=== PATIENT | female | born 1950 | race Caucasian/White ===

== ENCOUNTER 2024-11-14 15:04 | Outpatient (AMB) | payer MEDICARE, SELFPAY ==
[2024-11-14 15:06] VITALS: BP 108/76; PULSE 76; O2SAT 98; BMI 28.2
--- NOTE | 2024-11-14 15:06 | HO.NEPHOV_ITS ---
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: No Accompanied by: Self / Same As Patient Allergies No Known Allergies Allergy (Verified 11/14/24 15:09) Medication List - Last Reconciled 11/14/24 by Ronni Garcia MD albuterol sulfate 90 mcg/actuation 2 puffs inhalation Q6H PRN apixaban (Eliquis) 5 mg PO BID atorvastatin 20 mg PO DAILY dexlansoprazole 60 mg PO DAILY empagliflozin (Jardiance) 10 mg PO DAILY gabapentin 800 mg PO DAILY meclizine 12.5 mg PO DAILY PRN metoprolol succinate ER 100 mg PO DAILY paroxetine HCl 20 mg PO DAILY potassium chloride ER 20 mEq PO DAILY umeclidinium-vilanterol 62.5-25 mcg/actuation (Anoro Ellipta) 1 ea inhalation DAILY HPI Comments Details: Kimberly is a pleasant 74-year-old woman with multiple medical problems including longstanding hypertension diastolic heart failure and COPD. She has been on torsemide 20 mg a day along with potassium supplementation. She was found to have mild CKD with a elevated serum creatinine and mild alkalosis with a might hypokalemia. Two weeks ago she stopped taking torsemide and she has been watching her weight. She is still taking the potassium tab At present she has no shortness of breath. No nausea or vomiting. No edema. No urinary symptoms. [facility] Medical History (Updated 11/14/24 @ 15:19 by Ronni Garcia MD) Weakness Vitamin D deficiency Vertigo Transaminitis Systolic heart failure Sinusitis Pulmonary hypertension Prediabetes Peripheral neuropathy Osteopenia Obstructive sleep apnea syndrome NAFLD (nonalcoholic fatty liver disease) Lung nodule History of IBS Interstitial lung disease Insomnia Hypoxia Hypokalemia Hyperlipemia Colonic polyp HTN (hypertension) GI bleed Atrial fibrillation Iron deficiency anemia Cardiac pacemaker Gastroesophageal reflux disease LA (generalized anxiety disorder) Fatty liver Dyspnea on effort Dyspnea Depressive disorder Crohn's disease of large bowel Cobalamin deficiency CKD (chronic kidney disease), stage II Chronic systolic heart failure Chronic obstructive lung disease Chronic kidney disease, stage 3 Chronic diastolic heart failure Carotid artery stenosis Benign colon polyp Benign essential hypertension Surgical History History of total abdominal hysterectomy Hx of appendectomy History of neck surgery History of laminectomy Hx of cholecystectomy (~03/2019) Physical Exam Vital Signs: Last Vital Signs Pulse 76 11/14/24 15:06 BP 108/76 11/14/24 15:06 Pulse Ox 98 11/14/24 15:06 Oxygen Delivery Method Room Air 11/14/24 15:06 BMI result Body Mass Index 28.2 Comfortable Neck supple no JVD. Lungs entry equal no rales. Heart S1-S2 heard no gallop or rub. Abdomen soft nontender. Neuro alert awake oriented. No asterixis. Extremities no edema. Results Reviewed Nephrology Results: No Data to Display Assessment & Plan Assessment & Plan (1) CKD (chronic kidney disease): Code(s): N18.9 - Chronic kidney disease, unspecified Category: Medical Plan 74-year-old woman with mild CKD in a setting of congestive heart failure. She probably has a component of hypoperfusion from the use of diuretics. She could have age-related nephron loss leading to mild CKD. Recent imaging did not reveal any obstruction. Recent urine studies were benign and therefore glomerular nephritis or interstitial disease seem unlikely. She has mild alkalosis with hypokalemia both could be due to the use of diuretics. She has stopped taking the diuretics for the past 2 weeks. I will recheck serum electrolytes today. If she has persistent hypokalemia or alkalosis despite stopping the torsemide then we will proceed with further workup including plasma renin activity and aldosterone levels. Since she is not taking the torsemide I have asked her to stop taking potassium supplementation. After the workup is completed she returned to office in the next few weeks. Orders: Orders Complete Blood Count no Diff Today N18.9 - Chronic kidney disease, unspecified Sodium Urine Random 2 Weeks N18.9 - Chronic kidney disease, unspecified Chloride Urine Random Today N18.9 - Chronic kidney disease, unspecified Basic Metabolic Panel Today N18.9 - Chronic kidney disease, unspecified UA and rflx microscopic Today N18.9 - Chronic kidney disease, unspecified Coding Level of Care Code New Pt Level 5 (29429) Diagnoses CKD (chronic kidney disease) N18.9
--- OUTSIDE RECORDS SUMMARY | 2024-11-14 15:07 | XMS_ITS | Continuity of Care Document ---
Author Organization [facility] Address [address] [facility] [address] [place] [address] Phone Care Team Providers Care Leasing Sales Consultant Name Role Phone Awais Alford MD Unavailable Unavailable Advance Directives Directive Yes / No Effective Date File Name No Information Encounters Encounter Description Practice Location Reason(s) For Visit Diagnoses Date Provider Providers Copied on Encounter [facility], [address] [place] [address] [address], [place], [place], [id number], [phone] [facility] Office No Information 3 Rocío Ernandez. [address] [facility], [facility] [address], [place], [place], [id number] . tel: [phone] Family History Family Member Type Diagnosis Age [...]
--- OUTSIDE RECORDS SUMMARY | 2024-11-14 15:07 | XMS_ITS | Continuity of Care Document ---
Author Organization [facility] Address [address] [place] [phone] Phone Care Team Providers Care Cna Pct Name Role Phone Cece OD OD, Gamal Unavailable Unavailable Allergies, Adverse Reactions, Alerts Substance Reaction Status Criticality No Known Allergies Active No Inform ation Advance Directives Directive Yes / No Effective Date File Name No Information Encounters Encounter Description Practice Location Reason(s) For Visit Diagnoses Date Provider Providers Copied on Encounter [facility] , [address] [place] [address], [id number], [place] tel:[phone] [facility] Noé Stephens Other secondary cataract, left eyeAge-related nuclear cataract, left eyeUnspecified blepharitis right upper eyelidConjunctival hemorrhage, left eyeAge-related nuclear cataract, right eyeAge-related nuclear cataract, bilateralOther secondary cataract, bilateralVitreous degeneration, bilateralOther secondary cataract, right eyeDry eye syndrome of bilateral lacrimal glandsPersonal history of other diseases of the nervous system and sense organsUnspecified blepharitis left upper eyelid Apr-0 1 [facility] Gamal. [address] [place], [place], [id number] , [place]. tel: [phone] [facility] , [address] [place] [address], [id number], [place] tel:[phone] No Location No Information Apr-2 0 [facility] OD Gamal. [address] [place], [place], [id number] , [place]. [phone] [facility] , [address] [place] [address], [id number], [place] tel:[phone] [facility] Noé Stephens Dry eye syndrome of bilateral lacrimal glandsVitreous degeneration, bilateral Feb-2 0 Cece MATHEW Gamal. [address] [place], [place], [id number] , [place]. tel:[phone] Family History Family Member Type Diagnosis Age At Onset No Information Payers Payer name Insurance type Covered libertarian ID Authoriza tion(s) No Information Social History Type Description Quantity Date Captured Comments Sex Female Smoking Status No Information Chief Complaint And Reason For Visit No Information Reason For Referral Reason For Referral No Information History Of Present Illness Encounter Date Complaint History Of Prese nt Illness No Information Functional Status Date Functional Assessmen t No Information Instructions Date Instruction Additional Aguilarr alayna Impression/Plan Assessments Type Assessment Date No Information Patient Care Teams Name Effective Dates (start - stop) Status Members No Information
== END 2024-11-14 15:23 | disposition home or self-care (01) ==
PROVIDERS: PCP Family Medicine; Referring Provider Family Medicine; Visit Provider Internal Medicine Hypertension Specialist
DX: N18.2 Chronic kidney disease, stage 2 (mild) (principal); I50.9 Heart failure, unspecified
CPT/HCPCS: 99204

== ENCOUNTER 2024-11-14 15:04 | Outpatient (REF) | payer MEDICARE, SELFPAY ==
--- OUTSIDE RECORDS SUMMARY | 2024-11-14 15:38 | XMS_ITS ---
Author Name [facility] Organization Unknown Results Test Name/Text Value Interpretation Date Range Source Troponin I SerPl HS-mCnc 5ng/L Normal 0 - 14 [facility] CALCIUM SERPL [facility] 9.5mg/dL Normal 8.4 - 10.2 [facility] CREAT SERPL [facility] 0.8mg/dL Normal [id number] 0.5 - 1 [facility] SODIUM SERPL SC[facility] 138mmol/L Normal 135 - 145 [facility] GLUCOSE SERPL [facility] 115mg/dL Normal 70 - 199 [facility] Glomerular filtration rate/1.73 sq M. predicted 77 Normal 60 - [facility] CHLORIDE SERPL SCNC 101mmol/L Normal 98 - 107 [facility] HCO3 SER SCNC 26mmol/L Normal 24 - 32 [facility] POTASSIUM SERPL SCNC 3.5mmol/L Normal 3.5 - 5.1 [facility] ANION GAP SERPL SC[facility] 11mmol/L Normal 5 - 14 [facility] BUN SERPL [facility] 16mg/dL Normal [id number] 7 - 17 [facility] MAGNESIUM SERPL [facility] 2.5mg/dL Normal 1.7 - 2.8 [facility] RBC NO. BLD AUTO 5.46M/uL Above high normal 4. 2 - 5.4 [facility] MCH RBC QN AUTO 26.7pg Normal 25 - 33 C [facility] MCHC RBC AUTO MCNC 32.9g/dL Normal 32 - 36 [facility] HGB BLD [facility] 14.6g/dL Normal 12.5 - 16 [facility] WBC NO. BLD AUTO 9.6K/uL Normal 4 - 10.5 [facility] HCT VFR BLD AUTO 44.4% Normal 37 - 47 [facility] MCV RBC AUTO 81.2fL Normal 78 - 100 [facility] RDW RBC AUTO RTO 17.3% Above high normal 12.1 - 16.2 [facility] PLATELET NO. BLD AUTO 271K/uL Normal 150 - 450 [facility] PMV BLD AUTO 9.1fL Normal 7.4 - 11.4 [facility] Troponin I SerPl HS-mCnc 37ng/L Above high normal 0 - 14 [facility] HCoV NL63 RNA Nph Ql CHRIST+non-probe Not Detected Normal [id number] [facility] HPIV1 RNA Nph Ql CHRIST+non-probe Not Detected Normal [id number] [facility] HPIV3 RNA Nph Ql CHRIST+non-probe Detected Abnormal [id number] [facility] B pert.PT Prmt Nph Ql CHRIST+non-probe Not Detected Normal [id number] [facility] SARS-CoV-2 RNA Nph Ql CHRIST+non-probe Not Detected Normal [id number] [facility] C pneum DNA Nph Ql CHRIST+non-probe Not Detected Normal [id number] [facility] HPIV4 RNA Nph Ql CHRIST+non-probe Not Detected Normal [id number] [facility] B parap QQ2501 DNA Nph Ql CHRIST+non-probe Not Detected Normal [id number] [facility] HAdV DNA Nph Ql CHRIST+non-probe Not Detected Normal [id number] [facility] RSV RNA Nph Ql CHRIST+non-probe Not Detected Normal [id number] [facility] FLUBV RNA Nph Ql CHRIST+non-probe Not Detected Normal [id number] [facility] FLUAV RNA Nph Ql CHRIST+non-probe Not Detected Normal [id number] [facility] HCoV 229E RNA Nph Ql CHRIST+non-probe Not Detected Normal [id number] [facility] RV+EV RNA Nph Ql CHRIST+non-probe Not Detected Normal [id number] [facility] hMPV RNA Nph Ql CHRIST+non-probe Not Detected Normal [id number] [facility] HPIV2 RNA Nph Ql CHRIST+non-probe Not Detected Normal [id number] [facility] HCoV HKU1 RNA Nph Ql CHRIST+non-probe Not Detected Normal [facility] HCoV OC43 RNA Nph Ql CHRIST+non-probe Not Detected Normal [facility] Troponin I SerPl HS-mCnc 6ng/L Normal 0 - 14 [facility] Prot Ur Ql Strip.auto NEGATIVE Normal - [facility] Nitrite Ur Ql Strip.auto NEGATIVE Normal - [facility] Hgb Ur Ql Strip.auto NEGATIVE Normal - [facility] Leukocyte esterase Ur Ql Strip.auto NEGATIVE Normal - [facility] Clarity Ur Refract.auto CLEAR Normal [facility] Ketones Ur Ql Strip.auto NEGATIVE Normal - [facility] Glucose Ur Ql Strip.auto 150mg/dL Abnormal - [facility] pH Ur Strip.auto 5 Normal 4.5 - 8 [facility] Sp Gr Ur Strip.auto 1.005 Normal 1.005 - 1.03 [facility] Service [facility] XXX-Imp BioFire FilmArray Torch (RT-PCR) Normal [facility] SPECIMEN SOURCE XXX NASOPHARYNGEAL Normal [facility] Troponin I SerPl HS-mCnc 9ng/L Normal 0 - 14 [facility] BNP BLD MCNC 166pg/mL Above high normal [id number] 0 - 10 0 [facility] MAGNESIUM SERPL [facility]NC 1.7mg/dL Normal [id number] 1.7 - 2.8 [facility] PT TIME PPP 17.5sec Above high normal 10.5 - 13.3 [facility] INR PPP 1.5 Above high normal 0.8 - 1.1 [facility] APTT TIME PPP 30sec Normal 25 - 37 [facility] LIPASE SERPL [facility] 24U/L Normal 11 - 82 [facility] CREAT SERPL MC[facility] 0.8mg/dL Normal 0.5 - 1 [facility] SODIUM SERPL SCNC 138mmol/L Normal 135 - 145 [facility] GLUCOSE SERPL MCNC 85mg/dL Normal [id number] 70 - 199 [facility] Glomerular filtration rate/1.73 sq M. predicted 77 Normal [id number] 60 - [facility] CHLORIDE SERPL SCNC 102mmol/L Normal [id number] 98 - 107 [facility] HCO3 SER SCNC 24mmol/L Normal [id number] 24 - 32 [facility] POTASSIUM SERPL SCNC 3.3mmol/L Below low normal [id number] 3.5 - 5.1 [facility] ANION GAP SERPL SCNC 12mmol/L Normal [id number] 5 - 14 [facility] BUN SERPL [facility] 9mg/dL Normal [id number] 7 - 17 [facility] CALCIUM SERPL [facility] 8.3mg/dL Below low normal [id number] 8.4 - 10.2 [facility] ALBUMIN/GLOB SERPL MRTO 1.1 Normal [id number] [facility] ALP SERPL-CCNC 169U/L Above high normal [id number] 34 - 104 [facility] BILIRUB SERPL [facility]NC 0.6mg/dL Normal [id number] 0.3 - 1 [facility] AST SERPL [facility] 28U/L Normal [id number] 5 - 40 [facility] ALBUMIN SERPL BCG MCNC 3.5g/dL Normal [id number] 3.5 - 5 [facility] ALT SERPL [facility] 24U/L Normal [id number] 7 - 52 [facility] PROT SER[facility] 6.6g/dL Normal [id number] 6.4 - 8.5 C [facility] BILIRUB DIRECT SERPL [facility] 0.2mg/dL Normal [id number] 0 - 0.2 [facility] DIFFERENTIAL TYPE AUTOMATED Normal [id number] [facility] NEUTROPHILS NFR BLD AUTO 81.4% Above high normal [id number] 44 - 74 [facility] BASOPHILS NFR BLD AUTO 0.4% Normal [id number] 0 - 2 [facility] MONOCYTES NFR BLD AUTO 3.6% Normal [id number] 2 - 12 [facility] HCT VFR BLD AUTO 42.9% Normal [id number] 37 - 47 [facility] MONOCYTES NO. BLD AUTO 0.3K/uL Normal [id number] 0 - 0.8 [facility] RDW RBC AUTO RTO 17.2% Above high normal [id number] 12.1 - 16.2 [facility] PLATELET NO. BLD AUTO 253K/uL Normal [id number] 150 - 450 [facility] EOSINOPHIL NO. BLD AUTO 0.1K/uL Normal [id number] 0 - 0.5 [facility] RBC NO. BLD AUTO 5.18M/uL Normal [id number] 4.2 - 5.4 [facility] MCH RBC QN AUTO 26.8pg Normal [id number] 25 - 33 C [facility] MCHC RBC AUTO MCNC 32.4g/dL Normal 32 - 36 [facility] HGB BLD MCNC 13.9g/dL Normal 12.5 - 16 [facility] BASOPHILS IN BLOOD BY AUTOMATED COUNT 0K/uL Normal 0 - 0.2 [facility] WBC NO. BLD AUTO 8.1K/uL Normal [id number] 4 - 10.5 [facility] EOSINOPHIL NFR BLD AUTO 0.7% Normal [id number] 0 - 6 [facility] LYMPHOCYTES NFR BLD AUTO 13.9% Below low normal [id number] 20 - 48 [facility] MCV RBC AUTO 82.8fL Normal [id number] 78 - 100 [facility] NEUTROPHILS NO. BLD AUTO 6.6K/uL Normal [id number] 1.8 - 7.8 [facility] LYMPHOCYTES NO. BLD AUTO 1.1K/uL Normal [id number] 1 - 3.2 [facility] PMV BLD AUTO 8.7fL Normal [id number] 7.4 - 11.4 [facility] LACTATE SERPL SCNC 2mmol/L Normal [id number] 0.5 - 2 [facility] SPECIMEN SOURCE XXX URINE CLEAN CATCH Normal [id number] [facility] History of Medication Use Medication Directions Dispensed Refills Start Date End Date Status Breo Ellipta 100-25 MCG/ACT inhaler Inhale 1 puff. 4 11/22/99 99 active potassium chloride (K-TAB) 20 MEQ CR tablet TAKE 1 TABLET BY MOUTH EVERY DAY FOR 5 DAYS 4 active dexlansoprazole (DEXILANT) 60 MG capsule Take 1 capsule (60 mg total) by mouth daily. 4 active PARoxetine (PAXIL) tablet 20 mg 20 mg, Oral, Daily, First dose on Thu03/12/24 at 0900Reproductive/B reast Feeding Risk: Use appropriate precautions for handling and disposal. 4 active perflutren lipid microsphere (DEFINITY) IV contrast 0.5-10 mL, Intravenous, Once, On Thu03/12/24 at 1000, For 1 dose 4 completed cefdinir (OMNICEF) 300 MG capsule Take 1 capsule (300 mg total) by mouth 2 (two) times a day for 5 days. 4 active furosemide (LASIX) injection 40 mg 40 mg, Intravenous, Once, On Thu03/11/24 at 1745, For 1 dose 4 completed azithromycin (ZITHROMAX) 500 mg in sodium chloride (NS) 0.9 % 250 mL IVPB-V2B 500 mg, Intravenous, at 250 mL/hr, Every 24 hours, First dose on Thu03/11/24 at 1745 4 active clonazePAM (KlonoPIN) 0.5 MG tablet Take 1 tablet (0.5 mg total) by mouth daily as needed for anxiety. 4 active ipratropium-albuterol (DUO-NEB) nebulizer solution 3 mL 3 mL, Inhalation, Every 6 hours PRN, wheezing, shortness of breath, Starting on Thu03/11/24 at 1745 4 active atorvastatin (LIPITOR) tablet 40 mg 4 active metoprolol succinate (TOPROL-XL) 24 hr tablet 100 mg 100 mg, Oral, Daily, First dose on Thu03/12/24 at 0900Do not crush tablet. 4 active predniSONE (DELTASONE) tablet 20 mg Take 2 tablets (40 mg total) by mouth daily for 4 days. 4 active gabapentin (NEURONTIN) capsule 800 mg 800 mg, Oral, Daily, First dose on Thu03/12/24 at 0900 4 active apixaban (ELIQUIS) 5 MG TABS tablet Take 1 tablet (5 mg total) by mouth. 4 active torsemide (DEMADEX) 10 MG tablet Take 2 tablets (20 mg total) by mouth daily. 4 active potassium chloride ER tablet 40 mEq 40 mEq, Oral, Once, On Thu03/11/24 at 1800, For 1 doseDo not crush or chew tablet.?To make a liquid dissolution from a tablet: ??1) Place the whole tablet(s) in approximately ? ? ? cup of water (4 fluid ounces). ??2) Allow approximately 2 minutes for the tablet(s) to disintegrate. ??3) Stir for about lee 4 completed guaiFENesin-dextrometh orphan (ROBITUSSIN DM) 100-10 MG/5ML liquid 5 mL 5 mL, Oral, Every 6 hours PRN, cough, Starting on Thu03/11/24 at 1751 4 active atorvastatin (LIPITOR) tablet 40 mg 40 mg, Oral, Every Evening, First dose on 03/12/24 at 1800Pregnancy Risk Factor Category: X 4 active pantoprazole (PROTONIX) 40 MG EC tablet 40 mg 40 mg, Oral, Every Morning on an empty stomach (Daily), First dose on 03/12/24 at 0730Please select an indication: GERDIs this a home medication or a new start? Home Medication 4 active acetaminophen (TYLENOL) tablet 975 mg 975 mg, Oral, Once, On Thu03/11/24 at 2100, For 1 dose 4 completed NON FORMULARY REQUESTS 10 mg 10 mg, Oral, Daily, First dose on 03/12/24 at 0900Drug Name: EmpagliflozinForm: Oral TabletLength of Therapy: IndefiniteHow soon needed? (normally 72 hrs needed to procure): 0-24 hrsReason for Non-Formulary: not in list 4 active Jardiance 10 MG tablet 4 active cefTRIAXone (ROCEPHIN) injection 1,000 mg 1,000 mg, Intravenous, Every 24 hours, First dose on Thu03/11/24 at 1745If ordered IV then reconstitute with 10 mL sterile water or normal saline and administer IV push over 3 to 5 minutes. 4 active methylPREDNISolone sodium succinate (SOLU-Medrol) injection 40 mg 40 mg, Intravenous, Every 8 hours, First dose on Thu03/11/24 at 1715Administer over 2-3 minutes. 4 active famotidine (PEPCID) 20 MG tablet Take 1 tablet (20 mg total) by mouth 2 (two) times a day as needed. 4 active magnesium sulfate 2 g/50ml IVPB Premix 2 g, Intravenous, at 50 mL/hr, Once, On Thu03/11/24 at 1800, For 1 dose 4 completed loperamide (IMODIUM A-D) 2 MG tablet Take 2 tablets (4 mg total) by mouth. 4 active azithromycin (Zithromax) 250 MG tablet Take 1 tablet (250 mg total) by mouth daily for 4 days. 4 active Multiple Vitamin tablet Take 1 tablet by mouth daily. 4 active gabapentin (NEURONTIN) 800 MG tablet Take 1 tablet (800 mg total) by mouth. 4 aborted benzonatate (TESSALON) capsule 100 mg 100 mg, Oral, 3 times daily PRN, cough, Starting on Thu03/11/24 at 1751Swallow Whole?DO NOT CHEW 4 active PARoxetine (PAXIL) 20 MG tablet 4 aborted gabapentin (NEURONTIN) 800 MG tablet 4 active metoprolol succinate (TOPROL-XL) 24 hr tablet 100 mg 4 active dexlansoprazole (DEXILANT) 60 MG capsule 4 active ketoconazole (NIZORAL) 2 % cream Apply 1 application. topically 2 (two) times a day. 4 active losartan (COZAAR) tablet 25 mg 4 active amoxicillin-clavulanat e (AUGMENTIN) 875-125 MG per tablet Take 1 tablet by mouth 2 (two) times a day. for 7 days 4 aborted ondansetron (ZOFRAN) 4 MG tablet Take 1 tablet 3 times a day by oral route. 3 active amitriptyline (ELAVIL) 10 MG tablet TAKE 1 TABLET BY MOUTH EVERY DAY AT NIGHT 3 active losartan (COZAAR) 25 MG tablet 3 active clonazePAM (KlonoPIN) 0.5 MG tablet Take 1 tablet twice a day by oral route as needed. 3 active losartan (COZAAR) 25 MG tablet Take 1 tablet (25 mg total) by mouth daily. 2 aborted loperamide (IMODIUM A-D) 2 MG tablet Take 2 tablets (4 mg total) by mouth. 2 active ketoconazole (NIZORAL) 2 % cream Apply topically 2 (two) times a day. 3 active albuterol (PROVENTIL) (0.083%) 2.5 mg/3 mL nebulizer solution 3 aborted Multiple Vitamin tablet Take 1 tablet by mouth daily. 2 active PARoxetine (PAXIL) 20 MG tablet Take 20 mg by mouth every morning. 2 aborted zolpidem (AMBIEN) 10 MG tablet Take 1 tablet by mouth nightly as needed. 3 active metoPROLOL SUCCINATE (TOPROL-XL) 100 MG 24 hr tablet Take 1 tablet (100 mg total) by mouth daily. 2 aborted polyethylene glycol-electrolytes (NuLYTELY, TRILYTE) 420 g solution Take as directed for Colonoscopy/GI Procedure. See administration instructions. 2 active zolpidem (AMBIEN) 10 MG tablet 1 TABLET BY MOUTH DAILY AT BEDTIME NEEDED FOR INSOMNIA 2 aborted losartan (COZAAR) 25 MG tablet Take 1 tablet by mouth daily. 3 active atorvastatin (LIPITOR) 40 MG tablet 1 tablet daily. 3 active Probiotic Product (PROBIOTIC-10 PO) Take by mouth. 2 active loratadine (CLARITIN) 10 MG tablet Take 1 tablet by mouth daily. 3 active empagliflozin (Jardiance) 10 MG tablet Take 1 tablet (10 mg total) by mouth every morning. 3 aborted colestipol (COLESTID) 1 g tablet Take 2 tablets (2 g total) by mouth 2 (two) times a day. With a large glass of water. 3 active mometasone (ELOCON) 0.1 % cream APPLY THIN LAYER TO UNDERARMS AND UNDER BREAST TWICE A DAY X ONE WEEK, THEN STOP 2 active cyanocobalamin (VITAMIN B-12) 1000 MCG/ML injection Inject 1 mL (1,000 mcg total) under the skin every 30 days (once a month). 2 active atorvastatin (LIPITOR) 40 MG tablet 1 tablet daily. 3 active Probiotic Product (PROBIOTIC-10 PO) Take by mouth. 2 active rifAXIMin (XIFAXAN) 550 MG tablet Take 1 tablet (550 mg total) by mouth 3 (three) times a day. 3 aborted mupirocin (BACTROBAN) 2 % ointment Apply topically 2 (two) times a day. Apply to each nostril twice daily, start two days prior to procedure (including morning of) 3 aborted empagliflozin (JARDIANCE) 10 MG tablet Take 1 tablet (10 mg total) by mouth every morning. Do not start before May 30, 2023. 3 active cephalexin (KEFLEX) 500 MG capsule Take 1 capsule (500 mg total) by mouth 3 (three) times a day. Start 1 day prior to procedure, three times a day 3 aborted ibuprofen (MOTRIN) 800 mg tablet TAEK 1 TABLET 3 TO 4 TIMES A DAYFOR 4 DAYS NEEDED 3 active sacubitril-valsartan (Entresto) 24-26 mg per tablet Oral for 90 3 active apixaban (Eliquis) 5 MG tablet Take 1 tablet (5 mg total) by mouth 2 (two) times a day. 2 active amoxicillin-clavulanat e (AUGMENTIN) 500-125 MG per tablet 3 active atorvastatin (LIPITOR) 40 MG tablet TAKE 1 TABLET DAILY 2 active atorvastatin (LIPITOR) 40 MG tablet 1 tablet (40 mg total) daily. 3 aborted dicyclomine (BENTYL) 20 MG tablet Take 1 tablet every day by oral route as needed. 3 active traMADol (ULTRAM) 50 MG tablet TAKE 1 TABLET (50 MG TOTAL) BY MOUTH EVERY 8 (EIGHT) HOURS NEEDED FOR PAIN. 3 active zolpidem (AMBIEN) 10 MG tablet Take 1 tablet (10 mg total) by mouth nightly as needed. 3 active dexlansoprazole (DEXILANT) 60 MG capsule TAKE 1 CAPSULE DAILY DIRECTED 3 active gentamicin (GARAMYCIN) 0.1 % ointment External for 3 active DULoxetine (CYMBALTA) 30 MG capsule Oral for 3 active PARoxetine (PAXIL) 20 MG tablet 3 active famotidine (PEPCID) 20 MG tablet TAKE 1 TABLET (20 MG TOTAL) BY MOUTH 2 (TWO) TIMES A DAY NEEDED FOR INDIGESTION OR HEARTBURN. 2 active torsemide (DEMADEX) 10 MG tablet Take 1 tablet by mouth daily. 2 active torsemide (DEMADEX) 10 MG tablet Take 1 tablet (10 mg total) by mouth daily. 3 active clonazePAM (KlonoPIN) 0.5 MG tablet Take 1 tablet by mouth. 2 aborted nystatin [id number] UNIT/GM powder USE EVERY DAY MAINTENANCE AFTER RASH HAS RESOLVED 2 aborted Eliquis 5 MG tablet TAKE 1 TABLET TWICE A DAY 2 aborted metoPROLOL SUCCINATE (TOPROL-XL) 100 MG 24 hr tablet TAKE 1 TABLET DAILY 3 active gabapentin (NEURONTIN) 800 MG tablet Take 1 tablet (800 mg total) by mouth nightly. 3 active PARoxetine (PAXIL) 30 MG tablet 3 aborted ferrous sulfate 325 (65 FE) MG tablet Take 325 mg by mouth. 2 aborted gabapentin (NEURONTIN) 800 MG tablet Take 1 tablet by mouth nightly. 2 active Dexilant 60 MG capsule TAKE 1 CAPSULE DAILY DIRECTED 2 aborted Problems Problem Status Onset Date Problem Type Date of Resolution Source Bronchitis active 2024-02-22 9 ProblemAct [facility] Hypoxic active 2024-02-22 9 ProblemAct [facility] Wheeze active EncounterDiagnosisAct [facility] Class 1 obesity due to excess calories with serious comorbidity and body mass index (BMI) of 33.0 to 33.9 in adult active 4 ProblemAct [facility] Dyslipidemia active 8 ProblemAct [facility] Shortness of breath active 2022-03-24 5 ProblemAct [facility] Epistaxis active 2022-03-24 5 ProblemAct [facility] Irritable bowel syndrome active 2022-03-24 5 ProblemAct [facility] Anemia active 1 ProblemAct [facility] Iron deficiency anemia active 2014-11-25 0 ProblemAct [facility] Pulmonary hypertension active 6 ProblemAct [facility] GERD (gastroesophageal reflux disease) active 2018-09-23 4 [facility]Act [facility] Neuropathy active 2018-09-23 4 ProblemAct [facility] Back pain active 4 ProblemAct [facility] Chronic renal impairment, stage 3a active 1 ProblemAct [facility] Obstructive sleep apnea active 1 ProblemAct [facility] Chronic obstructive pulmonary disease active 2022-03-24 5 [facility]Act [facility] UTI (urinary tract infection) active 2021-12-24 3 ProblemAct [facility] 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 active 8 ProblemAct [facility] Cardiac pacemaker in situ active 2017-06-23 0 ProblemAct [facility] Orthostatic hypotension active 2022-01-21 0 ProblemAct [facility] Pacemaker end of life active 2022-12-24 0 [facility] S/P ablation of atrial fibrillation active 8 [facility]Act [facility] Stenosis of left carotid artery active 2015-11-23 1 ProblemAct [facility] Osteoarthritis active 2018-12-25 2 ProblemAct [facility] Insomnia active 2018-09-23 4 ProblemAct [facility] Atrioventricular block active 1 ProblemAct [facility] Weakness of both lower extremities active 2018-09-23 5 ProblemAct [facility] Fecal incontinence active 2014-07-24 5 ProblemAct [facility] Other hyperlipidemia active 2018-09-23 4 ProblemAct [facility] Congestive heart failure active 2019-01-21 7 [facility]Act [facility] [address] active 6 ProblemAct [facility] Chronic combined systolic and diastolic congestive heart failure active 6 ProblemAct [facility] History of depression active 2019-01-21 7 ProblemAct [facility] Restless legs active 2023-03-23 7 [facility]Act [facility] 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 7 ProblemAct [facility] Benign essential hypertension active 2019-01-21 7 ProblemAct [facility] Class 1 obesity due to excess calories with serious comorbidity and body mass index (BMI) of 33.0 to 33.9 in adult active 4 [facility]Act [facility] Memory impairment active 2015-11-23 0 ProblemAct [facility] Osteopenia active 2022-03-24 5 ProblemAct [facility] Cobalamin deficiency active 2022-03-24 5 ProblemAct [facility] Syncope and collapse active 7 ProblemAct [facility] Spinal stenosis of lumbar region active 2018-12-25 2 ProblemAct [facility] Iron deficiency active 2018-09-23 4 ProblemAct [facility] Paroxysmal atrial fibrillation active 2013-03-24 3 ProblemAct [facility] Anxiety active 2018-09-23 4 ProblemAct [facility] Paraparesis active 2018-09-23 5 ProblemAct [facility] Lupus active 2022-03-24 5 ProblemAct [facility] Chronic systolic heart failure active 2020-09-23 1 ProblemAct [facility] Dilated bile duct active 6 ProblemAct [facility] Single vessel coronary artery disease active 2018-09-23 4 ProblemAct [facility] Abnormal liver function tests active 8 ProblemAct [facility] Autoimmune disorder active 2019-01-22 9 ProblemAct [facility] Multiple nodules of lung active 3 ProblemAct [facility] Sjogren's syndrome active 2022-03-24 5 ProblemAct [facility] Chronic atrial fibrillation active 2017-10-23 9 ProblemAct [facility] Gastroesophageal reflux disease with esophagitis active 2 ProblemAct [facility] Thyroid nodule active 5 ProblemAct [facility] Coronary artery disease involving [place] coronary artery of [place] heart with angina pectoris active [address] [facility] [address] scan, lumbar spine active 2018-10-24 0 ProblemAct [facility] Chronic diastolic heart failure active 2022-03-24 5 ProblemAct [facility] Pacemaker-dependent due to [place] cardiac rhythm insufficient to support life active 2015-01-21 2 ProblemAct [facility] Primary hyperparathyroidism active 2020-01-22 0 ProblemAct [facility] Systolic heart failure active 2022-03-24 5 ProblemAct [facility] Irritable bowel syndrome with diarrhea active 2014-11-25 0 ProblemAct [facility] Interstitial lung disease active 1 ProblemAct [facility] Crohn's disease of large intestine active 2022-03-24 5 ProblemAct [facility] Cardiac arrhythmia active 2015-01-21 2 ProblemAct [facility] Impaired fasting glucose active 2022-03-24 5 ProblemAct [facility] Dilated cardiomyopathy active 1 ProblemAct [facility] Depressive disorder active 2022-03-24 5 ProblemAct [facility] Vitamin D deficiency active 2022-03-24 5 ProblemAct [facility] Benign colonic polyp active 2022-03-24 5 ProblemAct [facility] Immunizations Vaccine Date Source Lot Number Status Influenza Inactivated/Split Preservative Free IM 07/30/2021 [facility] UNK completed Influenza Inactivated/Split Preservative Free IM 09/12/2018 [facility] [id number] completed Influenza, Quadrivalent 08/23/2019 [facility] c ompleted Pneumococcal Polysaccharide 23-Valent 09/12/2018 [facility] [id number] completed Covid-19 mRNA Primary Series Vaccine - Moderna 0.5 mL Full Dose 07/17/2021 [facility] completed Influenza, Unspecified 07/17/2020 [facility] co mpleted Influenza (AFLURIA/FLUZONE) Inactivated/Split Quadrivalent with Preservative IM 07/30/2021 [facility] UNK completed Influenza, Unspecified 08/29/2019 [facility] UNK co mpleted Covid-19 mRNA Primary Series Vaccine - Moderna 0.5 mL Full Dose 11/26/2021 [facility] completed Covid-19 mRNA Primary Series Vaccine - Moderna 0.5 mL Full Dose 01/19/2021 [facility] [id number] completed Zoster Vaccine Live/Attenuated (Zostavax) 07/30/2021 [facility] UNK completed Influenza, Quadrivalent (FLU AD) Adjuvanted Preservative Free IM 65 years and older 09/11/2020 [facility] completed Pneumococcal Polysaccharide 23-Valent 10/04/2012 [facility] [id number] completed Influenza Whole 08/29/2019 [facility] UNK completed Influenza (AFLURIA/FLUZONE) Inactivated/Split Quadrivalent with Preservative IM 09/12/2018 [facility] [id number] completed Influenza (AFLURIA/FLUZONE) Inactivated/Split Quadrivalent with Preservative IM 08/23/2019 [facility] completed Covid-19 mRNA Primary Series Vaccine - Moderna 0.5 mL Full Dose 12/22/2020 [facility] [id number] completed Influenza, Unspecified 10/04/2012 [facility] [id number] co mpleted Influenza (AFLURIA/FLUZONE) Inactivated/Split Quadrivalent with Preservative IM 09/11/2020 [facility] completed Pneumococcal Conjugate 13-Valent 07/17/2020 [facility] completed Pneumococcal Conjugate 13-Valent 09/11/2020 [facility] completed
--- OUTSIDE RECORDS SUMMARY | 2024-11-14 15:39 | XMS_ITS | Continuity of Care Document ---
Author Organization [facility] Address [address] [facility] [address] [place] [address] Phone Care Team Providers Care Physiotherapy Practice Manager Name Role Phone Awais Alford MD Unavailable Unavailable Advance Directives Directive Yes / No Effective Date File Name No Information Encounters Encounter Description Practice Location Reason(s) For Visit Diagnoses Date Provider Providers Copied on Encounter [facility], [address] [place] [address] [address], [place], [place], [id number], [phone] [facility] Office No Information 3 Rocío Ernandez. [address] [facility], [facility] [address], [place], [place], [id number] . tel: [phone] Family History Family Member Type Diagnosis Age At Onset No Information Payers Payer name Insurance type Covered green party ID Authoriza tion(s) No Information Social [...]
--- OUTSIDE RECORDS SUMMARY | 2024-11-14 15:39 | XMS_ITS | Continuity of Care Document ---
Author Organization [facility] Address [address] [place] [phone] Phone Care Team Providers Care Shop Router Name Role Phone Cece OD OD, Gamal Unavailable Unavailable Allergies, Adverse Reactions, Alerts Substance Reaction Status Criticality No Known Allergies Active No Inform ation Advance Directives Directive Yes / No Effective Date File Name No Information Encounters Encounter Description Practice Location Reason(s) For Visit Diagnoses Date Provider Providers Copied on Encounter [facility] , [address] [place] [address], [id number], [place] tel:[phone] [facility] Noé Stephens Other secondary cataract, left eyeAge-related nuclear cataract, left eyeUnspecified blepharitis right upper eyelidConjunctival hemorrhage, left eyeAge-related nuclear cataract, right eyeAge-related nuclear cataract, bilateralOther secondary cataract, bilateralVitreous degeneration, bilateralOther secondary cataract, right eyeDry eye syndrome of bilateral lacrimal glandsPersonal history of other diseases of the nervous system and sense organsUnspecified blepharitis left upper eyelid Apr-0 1 [facility] OD Gamal. [address] [place], [place], [id number] , [place]. tel: [phone] [facility] , [address] [place] [address], [id number], [place] tel:[phone] No Location No Information Apr-2 0 Janeselmira OD Gamal. [address] [place], [place], [id number] , [place]. tel:[phone] [facility] , [address] [place] [address], [id number], [place] tel:[phone] [facility] Noé Stephens Dry eye syndrome of bilateral lacrimal glandsVitreous degeneration, bilateral Feb-2 0 Cece MATHEW Gamal. [address] [place], [place], [id number] , [place]. tel:[phone] Family History Family Member Type Diagnosis Age [...]
[2024-11-14 16:05] LABS: Hematocrit 42.6 % (37.0-47.0); Hemoglobin 13.8 g/dl (12.0-16.0); Mean Corpuscular HGB Conc 32.4 g/dl (31.0-35.0); Mean Corpuscular Hemoglobin 26.8 pg (27.0-33.0); Mean Corpuscular Volume 82.7 fL (80.0-98.0); Platelet Count 277 X10*3/uL (160-400); Red Blood Count 5.15 X10*6/uL (4.20-5.50); Red Cell Distribution Width 15.5 % (11.0-16.0); White Blood Count 9.7 X10*3/uL (4.8-10.8)
[2024-11-14 16:38] LABS: Anion Gap 13 (12-20); Blood Urea Nitrogen 10 mg/dL (9-16); Calcium 9.3 mg/dL (8.4-10.2); Carbon Dioxide 35 mmol/L (22-29); Chloride 95 mmol/L (96-108); Estimated Glomerular Filt Rate 47; Glucose Random 101 mg/dL (60-115); Potassium 3.3 mmol/L (3.3-5.1); Sodium 140 mmol/L (135-145)
[2024-11-15 12:50] LABS: Appearance Urine Clear; Color Urine Yellow; Glucose Urine UA 500 mg/dL (Negative); Leukocyte Esterase Urine Negative (Negative); Nitrite Urine Negative (Negative); PH 6.5 (5.0-9.0); Urine Blood Negative (Negative); Urine Ketones Negative (Negative); Urine Protein Negative (Neg-Trace)
== END 2024-11-14 15:05 | disposition home or self-care (01) ==
LOC: HO.LAB 15:04
PROVIDERS: PCP Family Medicine; Referring Provider Family Medicine; Visit Provider Internal Medicine Hypertension Specialist
DX: N18.9 Chronic kidney disease, unspecified (principal)
CPT/HCPCS: 36415; 80048; 81003; 82436; 85027; 99202

== ENCOUNTER 2024-11-21 11:51 | Outpatient (REF) | payer MEDICARE, SELFPAY ==
--- OUTSIDE RECORDS SUMMARY | 2024-11-21 11:54 | XMS_ITS | Continuity of Care Document ---
Author Organization [facility] Address [address] [facility] [address] [place] [address] Phone Care Team Providers Care Final Operations Technician Name Role Phone Awais Alford MD Unavailable Unavailable Advance Directives Directive Yes / No Effective Date File Name No Information Encounters Encounter Description Practice Location Reason(s) For Visit Diagnoses Date Provider Providers Copied on Encounter [facility], [address] [place] [address] [address], [place], [place], [id number], [phone] [facility] Office No Information 3 Rocío Ernandez. [address] [facility], [facility] [place] [address], [place], [place], [id number] . tel: [phone] Family History Family Member Type Diagnosis Age At Onset No Information Payers Payer name Insurance type Covered democrat ID Authoriza tion(s) No Information Social History [...]
--- OUTSIDE RECORDS SUMMARY | 2024-11-21 11:54 | XMS_ITS | Continuity of Care Document ---
Author Organization [facility] Address [address] [place] [phone] Phone Care Team Providers Care Ambulatory Technologist Name Role Phone Cece OD OD, Gamal Unavailable Unavailable Allergies, Adverse Reactions, Alerts Substance Reaction Status Criticality No Known Allergies Active No Inform ation Advance Directives Directive Yes / No Effective Date File Name No Information Encounters Encounter Description Practice Location Reason(s) For Visit Diagnoses Date Provider Providers Copied on Encounter [facility] , [address] [place] [address], [id number], [place] tel:[phone] [facility] Noé Stephens Other secondary cataract, left eyeAge-related nuclear cataract, left eyeUnspecified blepharitis right upper eyelidConjunctival hemorrhage, left eyeAge-related nuclear cataract, right eyeAge-related nuclear cataract, bilateralOther secondary cataract, bilateralVitreous degeneration, bilateralOther secondary cataract, right eyeDry eye syndrome of bilateral lacrimal glandsPersonal history of other diseases of the nervous system and sense organsUnspecified blepharitis left upper eyelid Apr-0 1 [facility] Gamal. [address] [place], [place], [id number] , [place]. tel: [phone] [facility] , [address] [place] [address], [id number], [place] tel:[phone] No Location No Information Apr-2 0 [facility] OD Gamal. [address] [place], [place], [id number] , [place]. tel:[phone] [facility] , [address] [place] [address], [id number], [place] tel:[phone] [facility] Noé Stephens Dry eye syndrome of bilateral lacrimal glandsVitreous degeneration, bilateral Feb-2 0 Cece MATHEW Gamal. [address] [place], [place], [id number] , [place]. tel:[phone] Family History Family Member Type Diagnosis Age [...]
[2024-11-21 12:54] LABS: Anion Gap 10 (12-20); Blood Urea Nitrogen 10 mg/dL (9-16); Calcium 8.6 mg/dL (8.4-10.2); Carbon Dioxide 26 mmol/L (22-29); Chloride 110 mmol/L (96-108); Estimated Glomerular Filt Rate > 60; Glucose Random 85 mg/dL (60-115); Potassium 4.7 mmol/L (3.3-5.1); Sodium 141 mmol/L (135-145)
[2024-11-27 11:52] LABS: Renin 0.36 ng/mL/h (0.25-5.82)
== END 2024-11-21 11:52 | disposition home or self-care (01) ==
LOC: HO.LAB 11:51
PROVIDERS: PCP Internal Medicine Hypertension Specialist; Visit Provider Family Medicine
DX: N18.9 Chronic kidney disease, unspecified (principal); E87.6 Hypokalemia
CPT/HCPCS: 36415; 80048; 82088; 82436; 84244

== ENCOUNTER 2024-11-28 10:03 | Outpatient (AMB) | payer MEDICARE, SELFPAY ==
[2024-11-28 10:06] VITALS: BP 138/70; PULSE 79; O2SAT 96; BMI 28.7
--- NOTE | 2024-11-28 10:06 | HO.NEPHOV_ITS ---
Vital Signs 11/28/24 10:06 Height 6 ft Weight 212 lb BMI 28.7 BP 138/70 Blood Pressure Location Lt brachial Position Sitting Pulse 79 Pulse Source Pulse Oximeter Pulse Oximetry (%) 96 Oxygen Delivery Method Room Air Intake Visit Reasons: CKD/LM Floor Plan Adjuster Required: No Accompanied by: Self / Same As Patient Allergies No Known Allergies Allergy (Verified 11/28/24 10:08) Medication List - Last Reconciled 11/28/24 by Ronni Garcia MD albuterol sulfate 90 mcg/actuation 2 puffs inhalation Q6H PRN apixaban (Eliquis) 5 mg PO BID atorvastatin 20 mg PO DAILY dexlansoprazole 60 mg PO DAILY doxycycline hyclate 100 mg PO BID empagliflozin (Jardiance) 10 mg PO DAILY gabapentin 800 mg PO DAILY meclizine 12.5 mg PO DAILY PRN metoprolol succinate ER 100 mg PO DAILY paroxetine HCl 20 mg PO DAILY prednisone 20 mg PO BID umeclidinium-vilanterol 62.5-25 mcg/actuation (Anoro Ellipta) 1 ea inhalation DAILY HPI Comments Details: Kimberly is a pleasant 74-year-old woman with multiple medical problems including longstanding hypertension diastolic heart failure and COPD. She has been on torsemide 20 mg a day along with potassium supplementation. She was found to have mild CKD with a elevated serum creatinine and mild alkalosis with a might hypokalemia. Two weeks ago she stopped taking torsemide and she has been watching her weight. She is still taking the potassium tab At present she has no shortness of breath. No nausea or vomiting. No edema. No urinary symptoms. 11/28/23 Gained 4 lbs No edema K was 4.7 without diuretics and Alkalosis resolved [facility] Medical History (Updated 11/15/24 @ 11:41 by Ronni Garcia MD) Weakness Vitamin D deficiency Vertigo Transaminitis Systolic heart failure Sinusitis Pulmonary hypertension Prediabetes Peripheral neuropathy Osteopenia Obstructive sleep apnea syndrome NAFLD (nonalcoholic fatty liver disease) Lung nodule History of IBS Interstitial lung disease Insomnia Hypoxia Hypokalemia Hyperlipemia Colonic polyp HTN (hypertension) GI bleed Atrial fibrillation Iron deficiency anemia Cardiac pacemaker Gastroesophageal reflux disease LA (generalized anxiety disorder) Fatty liver Dyspnea on effort Dyspnea Depressive disorder Crohn's disease of large bowel Cobalamin deficiency CKD (chronic kidney disease), stage II Chronic systolic heart failure Chronic obstructive lung disease Chronic kidney disease, stage 3 Chronic diastolic heart failure Carotid artery stenosis Benign colon polyp Benign essential hypertension Surgical History History of total abdominal hysterectomy Hx of appendectomy History of neck surgery History of laminectomy Hx of cholecystectomy (~03/2019) Physical Exam Vital Signs: Last Vital Signs Pulse 79 11/28/24 10:06 BP 138/70 11/28/24 10:06 Pulse Ox 96 11/28/24 10:06 Oxygen Delivery Method Room Air 11/28/24 10:06 BMI result Body Mass Index 28.7 Comfortable Neck supple no JVD. Lungs entry equal no rales. Anam Wheeze Heart S1-S2 heard no gallop or rub. Abdomen soft nontender. Neuro alert awake oriented. No asterixis. Extremities no edema. Results Reviewed Nephrology Results: Hgb 13.8 g/dl (12.0-16.0) 11/14/24 WBC 9.7 X10*3/uL (4.8-10.8) 11/14/24 Plt Count 277 X10*3/uL (160-400) 11/14/24 Sodium 141 mmol/L (135-145) 11/21/24 Potassium 4.7 mmol/L (3.3-5.1) 11/21/24 Chloride 110 mmol/L (96-108) H 11/21/24 Carbon Dioxide 26 mmol/L (22-29) 11/21/24 BUN 10 mg/dL (9-16) 11/21/24 Creatinine 0.85 mg/dL (0.5-1.4) 11/21/24 Calcium 8.6 mg/dL (8.4-10.2) 11/21/24 Urine Protein Negative mg/dL (Neg-Trace) 11/14/24 Assessment & Plan Assessment & Plan (1) CKD (chronic kidney disease): Code(s): N18.9 - Chronic kidney disease, unspecified Category: Medical (2) Hypokalemia: Code(s): E87.6 - Hypokalemia Category: Medical Plan 74-year-old woman with mild CKD in a setting of congestive heart failure. She probably has a component of hypoperfusion from the use of diuretics. She could have age-related nephron loss leading to mild CKD. Recent imaging did not reveal any obstruction. Recent urine studies were benign and therefore glomerular nephritis or interstitial disease seem unlikely. She has mild alkalosis with hypokalemia both could be due to the use of diuretics. She has stopped taking the diuretics for the past 2 weeks. I will recheck serum electrolytes today. If she has persistent hypokalemia or alkalosis despite stopping the torsemide then we will proceed with further workup including plasma renin activity and aldosterone levels. Since she is not taking the torsemide I have asked her to stop taking potassium supplementation. 11/28/23 Hypokalemia and Alkalosis resolved after stopping diuretics PA and PRA normal She has gained 4 lbs Will add LASIX 20 mg PO QD stay on low salt diet Watch renal panel Orders: Orders Basic Metabolic Panel 3 Weeks E87.6 - Hypokalemia, N18.9 - Chronic kidney disease, unspecified Medications: New furosemide 20 mg PO DAILY 30 tabs 1RF Coding Level of Care Code Est Pt Level 4 (87687) Diagnoses CKD (chronic kidney disease) N18.9 Hypokalemia E87.6
--- OUTSIDE RECORDS SUMMARY | 2024-11-28 10:58 | XMS_ITS | Continuity of Care Document ---
Author Organization [facility] Address [address] [facility] [address] [place] [address] Phone Care Team Providers Care Strategic Marketing Manager Name Role Phone Awais Alford MD Unavailable Unavailable Advance Directives Directive Yes / No Effective Date File Name No Information Encounters Encounter Description Practice Location Reason(s) For Visit Diagnoses Date Provider Providers Copied on Encounter [facility], [address] [place] [address] [address], [place], [place], [id number], [phone] [facility] Office No Information 3 Rocío Ernandez. [address] [facility], [facility] [address], [place], [place], [id number] . tel: [phone] Family History Family Member Type Diagnosis Age [...]
== END 2024-11-28 10:22 | disposition home or self-care (01) ==
PROVIDERS: PCP Family Medicine; Visit Provider Internal Medicine Hypertension Specialist
DX: N18.2 Chronic kidney disease, stage 2 (mild) (principal); E87.6 Hypokalemia; I50.9 Heart failure, unspecified
CPT/HCPCS: 99214

== ENCOUNTER 2024-12-16 14:15 | Outpatient (REF) | payer MEDICARE, SELFPAY ==
[2024-12-16 16:14] LABS: Anion Gap 14 (12-20); Blood Urea Nitrogen 6 mg/dL (9-16); Calcium 9.1 mg/dL (8.4-10.2); Carbon Dioxide 28 mmol/L (22-29); Chloride 103 mmol/L (96-108); Estimated Glomerular Filt Rate > 60; Glucose Random 76 mg/dL (60-115); Potassium 3.4 mmol/L (3.3-5.1); Sodium 142 mmol/L (135-145)
== END 2024-12-16 14:16 | disposition home or self-care (01) ==
LOC: HO.LAB 14:15
PROVIDERS: PCP Family Medicine; Visit Provider Internal Medicine Hypertension Specialist
DX: N18.9 Chronic kidney disease, unspecified (principal); E87.6 Hypokalemia
CPT/HCPCS: 36415; 80048; 84300

== ENCOUNTER 2024-12-19 11:55 | Outpatient (AMB) | payer MEDICARE, SELFPAY ==
[2024-12-19 12:04] VITALS: BP 136/72; PULSE 78; O2SAT 92; BMI 28.5
--- NOTE | 2024-12-19 12:04 | HO.NEPHOV ---
Vital Signs 12/19/24 12:04 Height 6 ft Weight 210 lb BMI 28.5 BP 136/72 Blood Pressure Location Rt brachial Position Sitting Pulse 78 Pulse Source Pulse Oximeter Pulse Oximetry (%) 92 Oxygen Delivery Method Room Air Intake Visit Reasons: 3wk follow up w/labs. LVM Feed And Farm Management Adviser Required: No Accompanied by: Self / Same As Patient Allergies No Known Allergies Allergy (Verified 12/19/24 12:06) Medication List - Last Reconciled 12/19/24 by Ronni Garcia MD albuterol sulfate 90 mcg/actuation 2 puffs inhalation Q6H PRN apixaban (Eliquis) 5 mg PO BID atorvastatin 20 mg PO DAILY dexlansoprazole 60 mg PO DAILY doxycycline hyclate 100 mg PO BID empagliflozin (Jardiance) 10 mg PO DAILY furosemide 20 mg PO DAILY gabapentin 800 mg PO DAILY meclizine 12.5 mg PO DAILY PRN metoprolol succinate ER 100 mg PO DAILY paroxetine HCl 20 mg PO DAILY umeclidinium-vilanterol 62.5-25 mcg/actuation (Anoro Ellipta) 1 ea inhalation DAILY HPI Comments Details: Kimberly is a pleasant 74-year-old woman with multiple medical problems including longstanding hypertension diastolic heart failure and COPD. She has been on torsemide 20 mg a day along with potassium supplementation. She was found to have mild CKD with a elevated serum creatinine and mild alkalosis with a might hypokalemia. Two weeks ago she stopped taking torsemide and she has been watching her weight. She is still taking the potassium tab At present she has no shortness of breath. No nausea or vomiting. No edema. No urinary symptoms. 11/28/23 Gained 4 lbs No edema K was 4.7 without diuretics and Alkalosis resolved 12/19/2024. Leg edema has improved. No new issues. [facility] Medical History (Updated 11/15/24 @ 11:41 by Ronni Garcia MD) Weakness Vitamin D deficiency Vertigo Transaminitis Systolic heart failure Sinusitis Pulmonary hypertension Prediabetes Peripheral neuropathy Osteopenia Obstructive sleep apnea syndrome NAFLD (nonalcoholic fatty liver disease) Lung nodule History of IBS Interstitial lung disease Insomnia Hypoxia Hypokalemia Hyperlipemia Colonic polyp HTN (hypertension) GI bleed Atrial fibrillation Iron deficiency anemia Cardiac pacemaker Gastroesophageal reflux disease LA (generalized anxiety disorder) Fatty liver Dyspnea on effort Dyspnea Depressive disorder Crohn's disease of large bowel Cobalamin deficiency CKD (chronic kidney disease), stage II Chronic systolic heart failure Chronic obstructive lung disease Chronic kidney disease, stage 3 Chronic diastolic heart failure Carotid artery stenosis Benign colon polyp Benign essential hypertension Surgical History History of total abdominal hysterectomy Hx of appendectomy History of neck surgery History of laminectomy Hx of cholecystectomy (~03/2019) Physical Exam Vital Signs: Last Vital Signs Pulse 78 12/19/24 12:04 BP 136/72 12/19/24 12:04 Pulse Ox 92 12/19/24 12:04 Oxygen Delivery Method Room Air 12/19/24 12:04 BMI result Body Mass Index 28.5 Comfortable Neck supple no JVD. Lungs entry equal no rales. Heart S1-S2 heard no gallop or rub. Abdomen soft nontender. Neuro alert awake oriented. No asterixis. Extremities no edema. Results Reviewed Nephrology Results: Hgb 13.8 g/dl (12.0-16.0) 11/14/24 WBC 9.7 X10*3/uL (4.8-10.8) 11/14/24 Plt Count 277 X10*3/uL (160-400) 11/14/24 Sodium 142 mmol/L (135-145) 12/16/24 Potassium 3.4 mmol/L (3.3-5.1) 12/16/24 Chloride 103 mmol/L (96-108) 12/16/24 Carbon Dioxide 28 mmol/L (22-29) 12/16/24 BUN 6 mg/dL (9-16) L 12/16/24 Creatinine 0.75 mg/dL (0.5-1.4) 12/16/24 Calcium 9.1 mg/dL (8.4-10.2) 12/16/24 Urine Protein Negative mg/dL (Neg-Trace) 11/14/24 Assessment & Plan Assessment & Plan (1) CKD (chronic kidney disease): Code(s): N18.9 - Chronic kidney disease, unspecified Category: Medical (2) Hypokalemia: Code(s): E87.6 - Hypokalemia Category: Medical Plan 74-year-old woman with mild CKD in a setting of congestive heart failure. She probably has a component of hypoperfusion from the use of diuretics. She could have age-related nephron loss leading to mild CKD. Recent imaging did not reveal any obstruction. Recent urine studies were benign and therefore glomerular nephritis or interstitial disease seem unlikely. She has mild alkalosis with hypokalemia both could be due to the use of diuretics. She has stopped taking the diuretics for the past 2 weeks. I will recheck serum electrolytes today. If she has persistent hypokalemia or alkalosis despite stopping the torsemide then we will proceed with further workup including plasma renin activity and aldosterone levels. Since she is not taking the torsemide I have asked her to stop taking potassium supplementation. 12/19/24 Hypokalemia and Alkalosis resolved after stopping diuretics PA and PRA normal Keep LASIX 20 mg PO QD Advised to consume potassium rich foods like oranges and bananas. Recheck renal panel in 2 weeks. If the potassium stays less than 3.2 I will add potassium supplementation. stay on low salt diet Orders: Orders Basic Metabolic Panel 2 Weeks E87.6 - Hypokalemia Coding Level of Care Code Est Pt Level 4 (40206) Diagnoses CKD (chronic kidney disease) N18.9 Hypokalemia E87.6
--- OUTSIDE RECORDS SUMMARY | 2024-12-19 16:43 | XMS_ITS | Encounter Summary ---
Author Organization [facility] Address [address] [place] [address] Care Team Providers Care Director Pharmacology Name Role Phone Jace Blake MD Primary Care Provider Provider, Conversion Unavailable Unavaila Andres Topete MD Unavailable [phone] Aki Ross MD Unavailable [phone] Ursula Boo MD Unavailable [phone] Rocio Youssef PA-C Unavailable [phone] Emeterio Valencia MD Unavailable Encounter Details Date Type Department Care Team (Late st Contact Info) Description 08/30/2020 [facility] [address] [address] Ursula Boo MD [address] [place] [address] Social History Tobacco Use Types Packs/Day Years Used Date Smoking Tobacco: Former Smokeless Tobacco: Never Alcohol Use Standard Drinks/Week Comments Not Currently 0 (1 standard drink = 0.6 oz pur e alcohol) Sex and Gender Information Value Date Recorded Sex Assigned at Female 07/21/2023 8:52 AM EDT Gender Identity Female 07/21/2023 8:52 AM EDT Sexual Orientation Heterosexual (straight) 07/21 8:52 AM EDT COVID-19 Exposure Response Date Recorded In the last month, have you been in contact with someone who was confirmed or suspected to have Coronavirus / COVID-19? No / Unsure 08/09/2020 7:09 AM EDT documented as of this encounter Plan of Treatment Upcoming Encounters Date Type Department Care Team (Late st Contact Info) Description 03/02/2025 1:40 PM EDT Office Visit [facility] [place] [address] [place] [address] Nico Bailey MD [address] [place] [address] 03/22/2025 1:30 PM EDT Office Visit [facility] [address] [place] [phone] Ursula Boo MD [address] [place] [address] 05/04/2025 10:00 AM EDT Office Visit [facility] [place] [address] [phone] Aki Ross MD [address] [place] [address] documented as of this encounter Visit Diagnoses Not on filedocumented in this encounter Care Teams Director Pharmacology Relationship Specialty Start Date End Date Jace Blake MD [address] [place] [address] PCP - General Psychiatry, General 05/04/17 Rachid Robles MD 04/27/17 Andres Lakhani MD [address] [place] [address] Kiln Door Builder Cardiology 07/08/19 Aki Ross MD [address] [place] [address] Primary Kiln Door Builder Cardiovascular Disease 07/08/19 Ursula Boo MD [address] [place] [address] Gastroenterology 06/07/20 Rocio Youssef PA-C [address] [place] [address] Physician Company Driver Gastroenterology 06/07/20 Emeterio Valencia MD [address] [place] [address] Clinician Pulmonary Medicine 06/20/20 documented as of this encounter
--- OUTSIDE RECORDS SUMMARY | 2024-12-19 16:43 | XMS_ITS | Encounter Summary ---
Author Organization [facility] Address [address] [place] [address] Care Team Providers Care Chief Privacy Officer Name Role Phone Jace Blake MD Primary Care Provider Provider, Rachid GARCIA Unavailable Unavaila Andres Topete MD Unavailable [phone] Aki Ross MD Unavailable [phone] Ursula Boo MD Unavailable Rocio Youssef PA-C Unavailable Emeterio Valencia MD Unavailable Encounter Details Date Type Department Care Team (Late st Contact Info) Description 04/22/2022 Scanned Document [facility] [place] [address] [place] [phone] Provider, External, [address] [place] [address] Social History Tobacco Use Types Packs/Day Years Used Date Smoking Tobacco: Former Cigarettes Q uit: 2000 Smokeless Tobacco: Never Alcohol Use Standard Drinks/Week Comments Yes 0 (1 standard drink = 0.6 oz pur e alcohol) 1-2 a month Sex and Gender Information Value Date Recorded Sex Assigned at Female 07/21/2023 8:52 AM EDT Gender Identity Female 07/21/2023 8:52 AM EDT Sexual Orientation Heterosexual (straight) 07/21 8:52 AM EDT COVID-19 Exposure Response Date Recorded In the last 10 days, have yo u been in contact with someone who was confirmed or suspected to have Coronavirus/COVID-19? No / Unsure 04/16/2022 8:13 AM EDT documented as of this encounter Plan of Treatment Upcoming Encounters Date Type Department Care Team (Late st Contact Info) Description 03/02/2025 1:40 PM EDT Office Visit [facility] [place] D[facility] [address] [phone] Nico Bailey MD [address] [place] [address] 03/22/2025 1:30 PM EDT Office Visit [facility] [address] [place] [address] Ursula Boo MD [address] [place] [address] 05/04/2025 10:00 AM EDT Office Visit [facility] [place] [address] [phone] Aki Ross MD [address] [place] [address] documented as of this encounter Visit Diagnoses Not on filedocumented in this encounter Care Teams Chief Privacy Officer Relationship Specialty Start Date End Date Jace Blake MD [address] [place] [address] PCP - General Psychiatry, General 05/04/17 Rachid Robles MD 04/27/17 Andres Lakhani MD [address] [place] [address] Senior Project Controls Specialist Cardiology 07/08/19 Aki Ross MD [address] [place] [address] Primary Senior Project Controls Specialist Cardiovascular Disease 07/08/19 Ursula Boo MD [address] [place] [address] Gastroenterology 06/07/20 Rocio Youssef PA-C [address] [place] [address] Physician Ironworker Machine Operator Gastroenterology 06/07/20 Emeterio Valencia MD [address] [place] [address] Clinician Pulmonary Medicine 06/20/20 documented as of this encounter
--- OUTSIDE RECORDS SUMMARY | 2024-12-19 16:43 | XMS_ITS | Encounter Summary ---
Author Organization [facility] Address [address] [place] [address] Care Team Providers Care Glass Blower Name Role Phone Jace Blake MD Primary Care Provider [phone] Provider, Conversion Unavailable Unavaila Andres Topete MD Unavailable [phone] Aki Ross MD Unavailable [phone] Ursula Boo MD Unavailable [phone] Rocio Youssef PA-C Unavailable Emeterio Valencia MD Unavailable Encounter Details Date Type Department Care Team (Late st Contact Info) Description 12/01/2024 Telephone [facility] Heart & Vascular [place] [address] [place] [phone] Provider, Cardiology Social History Tobacco Use Types Packs/Day Years Used Date Smoking Tobacco: Former Cigarettes Q uit: 2000 Smokeless Tobacco: Never Alcohol Use Standard Drinks/Week Comments Yes 0 (1 standard drink = 0.6 oz pur e alcohol) once a week Sex and Gender Information Value Date Recorded Sex Assigned at Female 07/21/2023 8:52 AM EDT Gender Identity Female 07/21/2023 8:52 AM EDT Sexual Orientation Heterosexual (straight) 07/21 8:52 AM EDT documented as of this encounter Miscellaneous Notes * Telephone Encounter - Lucie Smith RN - 12/01/2024 12:26 PM EST Pt seen in ED 11/27- see ongoing TE frrom 10/27. Spoke with pt yesterday she is following renal and say heart failure, back on diuretics now and she is following up with their office. Offered sooner appt with SK, she will call if she feels it is needed. * Telephone Encounter - Yamel Thomas MA - 12/01/2024 12:03 PM EST Please advise documented in this encounter Plan of Treatment Upcoming Encounters Date Type Department Care Team (Late st Contact Info) Description 03/02/2025 1:40 PM EDT Office Visit [facility] Dermatology [place] [address] [place] [phone] Nico Bailey MD [address] [place] [address] 03/22/2025 1:30 PM EDT Office Visit [place] [address] [place] [phone] Ursula Boo MD [address] [place] [address] 05/04/2025 10:00 AM EDT Office Visit [facility] Heart & Vascular [place] [address] [phone] Aki Ross MD [address] [place] [address] [phone] documented as of this encounter Visit Diagnoses Not on filedocumented in this encounter Care Teams Glass Blower Relationship Specialty Start Date End Date Jace Blake MD [address] [place] [address] PCP - General Psychiatry, General 05/04/17 ProviderRachid MD 04/27/17 Andres Lakhani MD [address] [place] [address] Retail Shift Supervisor Cardiology 07/08/19 Aki Ross MD [address] [place] [address] Primary Retail Shift Supervisor Cardiovascular Disease 07/08/19 Ursula [facility] [place] [address] Gastroenterology 06/07/20 Rocio Youssef PA-C [address] [place] [address] Physician Players Assistant Gastroenterology 06/07/20 Emeterio Valencia [place] [facility] [place] [address] Clinician Pulmonary Medicine 06/20/20 documented as of this encounter
--- OUTSIDE RECORDS SUMMARY | 2024-12-19 16:43 | XMS_ITS | Encounter Summary ---
Author Organization [facility] Address [address] [place] [address] Care Team Providers Care Asphalt Paving Foreman Name Role Phone Jace Blake MD Primary Care Provider Provider, Conversion Unavailable Unavaila Andres Topete MD Unavailable [phone] Aki Ross MD Unavailable [phone] Ursula Boo MD Unavailable Rocio Youssef PA-C Unavailable Emeterio Valencia MD Unavailable Encounter Details Date Type Department Care Team (Late st Contact Info) Description 06/02/2023 Scanned Document [facility] Heart & Vascular [place] [address] [address] Aki Ross MD [address] [place] [address] Social History Tobacco Use Types Packs/Day Years [...] Description 03/02/2025 1:40 PM EDT Office Visit [facility] Dermatology [place] [address] [place] [address] Nico Bailey MD 35 [place] [address] 03/22/2025 1:30 PM EDT Office Visit [place] [address] [place] [address] Ursula Boo MD [address], [place] [address] 05/04/2025 10:00 AM EDT Office Visit [facility] Heart & Vascular [place] [address] [address] Aki Ross MD [address] [place] [address] [phone] documented as of this encounter Visit Diagnoses Not on filedocumented in this encounter Care Teams Asphalt Paving Foreman Relationship Specialty Start Date End Date Jace Blake MD [address] [place] [address] PCP - General Psychiatry, General 05/04/17 Rachid Robles MD 04/27/17 Andres Lakhani MD [address] [place] [address] Sample Taker Operator Cardiology 07/08/19 Aki Ross MD [address] [place] [address] Primary Sample Taker Operator Cardiovascular Disease 07/08/19 Ursula Boo MD [address] [place] [address] Gastroenterology 06/07/20 Rocio Youssef PA-C [address] [place] [address] Physician Bessemer Bottom Maker Gastroenterology 06/07/20 Emeterio Valencia MD [address] [place] [address] Clinician Pulmonary Medicine 06/20/20 documented as of this encounter
--- OUTSIDE RECORDS SUMMARY | 2024-12-19 16:43 | XMS_ITS | Encounter Summary ---
Author Organization [facility] Address [address] [place] [address] Care Team Providers Care Industrial Truck Operator Name Role Phone Jace Blake MD Primary Care Provider Provider, Rachid GARCIA Unavailable Unavaila Andres Topete MD Unavailable [phone] Aki Ross MD Unavailable [phone] Ursula Boo MD Unavailable Rocio Youssef PA-C Unavailable Emeterio Valencia MD Unavailable Encounter Details Date Type Department Care Team (Late st Contact Info) Description 05/03/2018 Scanned Document [facility] Heart & Vascular [place] [address] [place] [address] Provider, External, [address] [place] [address] Social History Tobacco Use Types Packs/Day Years Used Date Smoking Tobacco: Former Sex and Gender Information Value Date Recorded Sex Assigned at Female 07/21/2023 8:52 AM EDT Gender Identity Female 07/21/2023 8:52 AM EDT Sexual Orientation Heterosexual (straight) 07/21 8:52 AM EDT documented as of this encounter Plan of Treatment Upcoming Encounters Date Type Department Care Team (Late st Contact Info) Description 03/02/2025 1:40 PM EDT Office Visit [facility] Dermatology [place] [address] [place] [address] Nico Bailey MD [address] [place] [address] 03/22/2025 1:30 PM EDT Office Visit [facility] [address] [place] [address] Ursula Boo MD [address] [place] [address] 05/04/2025 10:00 AM EDT Office Visit [facility] Heart & Vascular [place] [facility] [address] [place] [address] Aki Ross MD [address] [place] [address] documented as of this encounter Visit Diagnoses Not on filedocumented in this encounter Care Teams Industrial Truck Operator Relationship Specialty Start Date End Date Jace Blake MD [address] [place] [address] PCP - General Psychiatry, General 05/04/17 Rachid Robles MD 04/27/17 Andres Lakhani MD [address] [place] [address] Dielectric Machine Operator Cardiology 07/08/19 Aki Ross MD [address] [place] [address] [phone] Primary Dielectric Machine Operator Cardiovascular Disease 07/08/19 Ursula Boo MD [address] [place] [address] Gastroenterology 06/07/20 Rocio Youssef PA-C [address] [address] Physician Newspaper Photographer Gastroenterology 06/07/20 [place] [address] [address] Clinician Pulmonary Medicine 06/20/20 documented as of this encounter
--- OUTSIDE RECORDS SUMMARY | 2024-12-19 16:43 | XMS_ITS | Encounter Summary ---
Author Organization [facility] Address [address] [place] [address] Care Team Providers Care Law Secretary Name Role Phone Jace Blake MD Primary Care Provider Provider, Rachid GARCIA Unavailable Unavaila Andres Topete MD Unavailable [phone] Aki Ross MD Unavailable [phone] Ursula Boo MD Unavailable [phone] Rocio Youssef PA-C Unavailable Emeterio Valencia MD Unavailable Encounter Details Date Type Department Care Team (Late st Contact Info) Description 04/17/2021 Scanned Document [facility] Heart & Vascular [place] [address] [place] [address] Provider, External, [address] [place] [address] Social History Tobacco Use Types Packs/Day Years [...] have Coronavirus / COVID-19? No / Unsure 04/03/2021 8:40 AM EDT documented as of this encounter Plan of Treatment Upcoming Encounters Date Type Department Care Team (Late st Contact Info) Description 03/02/2025 1:40 PM EDT Office Visit [facility] Dermatology [address] [address] Nico Bailey MD [address] [place] [address] 03/22/2025 1:30 PM EDT Office Visit [place] [address] [place] [address] Ursula Boo MD [address] [address] 05/04/2025 10:00 AM EDT Office Visit [facility] Heart & Vascular [place] [address] [address] Aki Ross MD [address] [place] [address] documented as of this encounter Visit Diagnoses Not on filedocumented in this encounter Care Teams Law Secretary Relationship Specialty Start Date End Date Jace Blake MD [address] [place] [address] PCP - General Psychiatry, General 05/04/17 Rachid Robles MD 04/27/17 Andres Lahkani MD [address] [place] [address] Electric Meter Technician Cardiology 07/08/19 Aki Ross MD [address] [place] [address] Primary Electric Meter Technician Cardiovascular Disease 07/08/19 Ursula Boo MD [address] [address] Gastroenterology 06/07/20 Rocio Youssef PA-C [address] [place] [address] Physician Sawmill Relief Worker Gastroenterology 06/07/20 Emeterio Valencia MD [address] [address] Clinician Pulmonary Medicine 06/20/20 documented as of this encounter
--- OUTSIDE RECORDS SUMMARY | 2024-12-19 16:43 | XMS_ITS | Encounter Summary ---
Author Organization [facility] Address [address] [place] [address] Care Team Providers Care Garment Sorter Name Role Phone Jace Blake MD Primary Care Provider Provider, Rachid GARCAI Unavailable Unavaila Andres Topete MD Unavailable [phone] Aki Ross MD Unavailable [phone] Ursula Boo MD Unavailable Rocio Youssef PA-C Unavailable Emeterio Valencia MD Unavailable Reason for Visit * Reason Comments Prior Authorization XIFAXAN 550MG TABLET S Encounter Details Date Type Department Care Team (Late st Contact Info) Description 12/15/[address] [facility] [address] [place] [address] Ursula Boo MD [address] [place], [place] 47[address] Prior Authorization (XIFAXAN 550MG TABLETS) Social History Tobacco Use Types Packs/Day Years [...] encounter Miscellaneous Notes * Telephone Encounter - Edie Allamakee - 12/15/2024 1:23 PM EST Prior Authorization Approved Medication/Strength: XIFAXAN 550MG TABLETS Quantity/Day Supply: Insurance: Movity Plan Type: MEDICARE Reference Number:N/A Approval Dates: 09/16/2024 through 12/29/2024 May fill with [facility] Pharmacy: YES If lockout, Preferred Pharmacy: NO Copay (>$5 Complete FA Review): 20.00 340B Pricing (subject to change quarterly or on prescription renewal): NO Has patient consented to FA? NO CONSENT ON FILE Additional Information: *eVoucherMsg*Not eligible; Govt Plan * Telephone Encounter - Edie Jules - 12/15/2024 10:47 AM EST Submitted Prior Authorization to DALE De La Cruz via [facility] Estimated turnaround time: 24-72 HOURS TAT Additional Information: (Foster: [id number]) documented in this encounter Plan of Treatment Upcoming Encounters Date Type Department Care Team (Late st Contact Info) Description 03/02/2025 1:40 PM EDT Office Visit [facility] Dermatology [address] [phone] Nico Bailey MD [address] [place] [address] 03/22/2025 1:30 PM EDT Office Visit [address] [address] Ursula Boo MD [address] [place] [address] 05/04/2025 10:00 AM EDT Office Visit [facility] Heart & Vascular [place] [address] [address] Aki Ross MD [address] [place] [address] [phone] documented as of this encounter Visit Diagnoses Not on filedocumented in this encounter Care Teams Garment Sorter Relationship Specialty Start Date End Date Jace Blake MD [address] [place] [address] PCP - General Psychiatry, General 05/04/17 ProviderRachid MD 04/27/17 Andres Lakhani MD [address] [place] [address] Cut Off Saw Operator Pipe Blanks Cardiology 07/08/19 Aki Ross MD [address] [place] [address] Primary Cut Off Saw Operator Pipe Blanks Cardiovascular Disease 07/08/19 Ursula Boo MD [address] [place] [address] Gastroenterology 06/07/20 Rocio Youssef PA-C [address] [address] Physician Risk And Compliance Analytics Director Gastroenterology 06/07/20 Emeterio Valencia MD [address] [address] Clinician Pulmonary Medicine 06/20/20 documented as of this encounter
--- OUTSIDE RECORDS SUMMARY | 2024-12-19 16:43 | XMS_ITS | Clinical Summary ---
Author Organization [facility] Address [address] [place] [address] Care Team Providers Care Equities Analyst Name Role Phone Jace Blake MD Primary Care Provider [phone] Allergies No known active allergies Medications Medication Sig Dispensed Refills Start Date End Date Status apixaban (ELIQUIS) 5 MG TABS tablet Take 1 tablet (5 mg total) by mouth. 0 02/04/2023 Active atorvastatin (LIPITOR) tablet 40 mg 0 01/04/2024 Active dexlansoprazole (DEXILANT) 60 MG capsule 0 02/05/2024 Active Jardiance 10 MG tablet 0 02/28/2024 Active famotidine (PEPCID) 20 MG tablet Take 1 tablet (20 mg total) by mouth 2 (two) times a day as needed. 0 09/04/2022 Active gabapentin (NEURONTIN) 800 MG tablet 0 01/04/2024 Active ketoconazole (NIZORAL) 2 % cream Apply 1 application. topically 2 (two) times a day. 0 08/12/2023 Active loperamide (IMODIUM A-D) 2 MG tablet Take 2 tablets (4 mg total) by mouth. 0 Active losartan (COZAAR) tablet 25 mg 0 01/04/2024 Active metoprolol succinate (TOPROL-XL) 24 hr tablet 100 mg 0 02/27/2024 Active Multiple Vitamin tablet Take 1 tablet by mouth daily. 0 Active PARoxetine (PAXIL) 20 MG tablet 0 02/27/2024 Active torsemide (DEMADEX) 10 MG tablet Take 2 tablets (20 mg total) by mouth daily. 0 02/17/2022 Active clonazePAM (KlonoPIN) 0.5 MG tablet Take 1 tablet (0.5 mg total) by mouth daily as needed for anxiety. 0 Active Active Problems Problem Noted Date Diagnosed Date Bronchitis 03/11/2024 Hypoxic 03/11/2024 Gastroesophageal reflux disease with esophagitis 06/24/2022 03/11/2024 Chronic obstructive pulmonary disease 04/16/2022 03/11/2024 Crohn's disease of large intestine 04/16/2022 03/11/2024 Depressive disorder 04/16/2022 03/11/2024 Sjogren's syndrome 04/16/2022 03/11/2024 Chronic renal impairment, stage 3a 10/23/2021 03/11/2024 Overview: Last Assessment & Plan: Labile creatinine values. Continue to follow with primary care physicians. Class 1 obesity due to exces s calories with serious comorbidity and body mass index (BMI) of 33.0 to 33.9 in adult 12/27/2020 03/11/2024 Overview: Last Assessment & Plan: Weight loss encouraged. I offered cardiac rehabilitation but the patient hopes to do some mild exercise on her own. Last Assessment & Plan: The patient is asked to make an attempt to improve diet and exercise patterns to aid in medical management of this problem. Iron deficiency 10/06/2018 03/11/2024 Overview: Last Assessment & Plan: We will proceed with capsule endoscopy as the patient is amenable. Risk options and benefits discussed in detail verbalized understanding. Dyslipidemia 04/30/2017 03/11/2024 Chronic combined systolic an d diastolic congestive heart failure 09/28/2014 03/11/2024 Overview: EF 60% by echo Nov. Last Assessment & Plan: Recent BNP was normal. Clinical volume status appears good. For now continue present medications. See discussion concerning hypertension. EF 60% by echo Nov. Last Assessment & Plan: Left ventricular ejection fraction is now improved and normal. Suspicion of diastolic dysfunction as well as left atrial dysfunction. BNP has been variable. Stable to improved during recent hospitalization. On decrease torsemide at least clinically does not appear to be significantly volume overloaded. Would hesitate to increase in light of tendency toward low blood pressure and possible orthostasis. Continue present medications for now. See discussion under cardiomyopathy. [facility] Paroxysmal atrial fibrillation 04/14/2013 0 03/11/2024 Overview: Last Assessment & Plan: Patient with some possible occasional symptoms of arrhythmias. She continues with remote monitoring of her device through [facility]. Is maintained on beta-blockers and anticoagulation with Eliquis. Atrial fibrillation Last Assessment & Plan: Infrequent spells on pacemaker interrogation of atrial fibrillation without rapid ventricular rates. Continue decrease metoprolol and continue Eliquis with follow-up of hemoglobin and for any symptoms or signs of bleeding with others. Social History Tobacco Use Types Packs/Day Years Used Date Smoking Tobacco: Never Assessed Sex and Gender Information Value Date Recorded Sex Assigned at Female 03/11/2024 1:05 PM EDT Gender Identity Not on file Sexual Orientation Not on file Job Start Date Occupation Industry Not on file Not on file Not on file Last Filed Vital Signs Vital Sign Reading Time Taken Comments Blood Pressure 122/65 03/12/2024 11:00 AM EDT Pulse 76 03/12/2024 11:00 AM EDT Temperature 36.1 ??C (97 ??F) 03/12/2024 11:00 AM EDT Respiratory Rate 22 03/12/2024 11:00 AM EDT Oxygen Saturation 98% 03/12/2024 11:00 AM EDT Inhaled Oxygen Concentration - - Weight 95.3 kg (210 lb) 03/11/2024 11:07 AM EDT Height 182.9 cm (6') 03/11/2024 11:07 AM EDT Body Mass Index 28.48 03/11/2024 11:07 AM EDT Plan of Treatment Health Maintenance Due Date Last Done Comments Hepatitis C Screening 1950 Depression Screening 1960 Preventative Health Evaluation 1966 DTap / Tdap / Td (1 - Tdap) 1967 Shingrix-Zoster Vaccine (1 of 2) 1998 05/27/2022 Fall Risk Assessment 2013 Osteoporosis Screening (DEXA Scan) 2013 RSV Adult > 60+ Yrs or (1 - 1-dose 75+ series) 2023 COVID-19 Vaccine ( season) 2024 10/20/2023, 09/01/2023, 09/06/2022, Additional history exists Influenza Vaccine (#1) 2024 , 07/30/2021, 07/30/2021, Additional history exists Pneumococcal Vaccine Completed 05/27/2022, 04/23/2021, 09/11/2020, Additional history exists Hepatitis B Vaccines Aged Out No long er eligible based on patient's age to complete this topic RSV Ped < 20 months Aged Out No longe r eligible based on patient's age to complete this topic Advance Directives For more information, please contact: [phone] Latest Code Status on File Code Status Date Activated Date Inactivated Comments Full Code 03/11/2024 5:12 PM 03/13/2024 1:01 AM This code status was ascertained in the following way: Discussed with patient. Care Teams Equities Analyst Relationship Specialty Start Date End Date Jace Blake MD [address] [place] [address] PCP - General Family Medicine 03/11/24
--- OUTSIDE RECORDS SUMMARY | 2024-12-19 16:43 | XMS_ITS | Encounter Summary ---
Author Organization [facility] Address [address] [place] [address] Care Team Providers Care Packager Hand Name Role Phone Jace Balke MD Primary Care Provider Provider, Rachid GARCIA Unavailable Unavaila Andres Topete MD Unavailable [phone] Aki Ross MD Unavailable [phone] Ursula Boo MD Unavailable [phone] Rocio Youssef PA-C Unavailable Emeterio Valencia MD Unavailable Encounter Details Date Type Department Care Team (Late st Contact Info) Description 07/01/2023 Scanned Document [facility] [address] [place] [address] Ursula Boo MD [address] [place], [place] [address] Social History Tobacco Use Types Packs/Day Years [...] Description 03/02/2025 1:40 PM EDT Office Visit [facility] Dermatology [address] [address] Nico Bailey MD [address] [place] [address] 03/22/2025 1:30 PM EDT Office Visit [address] [address] Ursula Boo MD [address] [address] 05/04/2025 10:00 AM EDT Office Visit [facility] Heart & Vascular [place] [address] [address] Aki Ross MD [address] [place] [address] documented as of this encounter Visit Diagnoses Not on filedocumented in this encounter Care Teams Packager Hand Relationship Specialty Start Date End Date Jace Blake MD [address] [place] [address] PCP - General Psychiatry, General 05/04/17 Rachid Robles MD 04/27/17 Andres Lakhani MD [address] [place] [address] Mud Analysis Well Logging Operator Cardiology 07/08/19 Aki Ross MD [address] [place] [address] [place] [address] Primary Mud Analysis Well Logging Operator Cardiovascular Disease 07/08/19 Ursula Boo MD [address] [place] [address] Gastroenterology 06/07/20 Rocio Youssef PA-C [address] [place] [address] Physician Piece Dyer Gastroenterology 06/07/20 Emeterio Valencia MD [address] [place] [address] Clinician Pulmonary Medicine 06/20/20 documented as of this encounter
--- OUTSIDE RECORDS SUMMARY | 2024-12-19 16:43 | XMS_ITS | Encounter Summary ---
Author Organization [facility] Address [address] [place] [address] Care Team Providers Care Rand Tacker Name Role Phone Jace Blake MD Primary Care Provider [phone] Provider, Rachid GARCIA Unavailable Unavaila Andres Topete MD Unavailable [phone] Aki Ross MD Unavailable [phone] Ursula Boo MD Unavailable Rocio Youssef PA-C Unavailable Emeterio Valencia MD Unavailable Encounter Details Date Type Department Care Team (Late st Contact Info) Description 06/24/2023 Scanned Document [facility] [address] [place] [phone] Ursula Boo MD [address] [place], [place] [address]88[address] Social History Tobacco Use Types Packs/Day Years [...] Description 03/02/2025 1:40 PM EDT Office Visit [facility] Dermatology [address] [address] Nico Bailey MD [address] [place] [address] 03/22/2025 1:30 PM EDT Office Visit [address] [address] Ursula Boo MD [address] [address] 05/04/2025 10:00 AM EDT Office Visit [facility] Heart & Vascular [place] [address] [address] Aki Ross MD [address] [place] [address] documented as of this encounter Visit Diagnoses Not on filedocumented in this encounter Care Teams Rand Tacker Relationship Specialty Start Date End Date Jace Blake MD [address] [place] [address] PCP - General Psychiatry, General 05/04/17 Rachid Robles MD 04/27/17 Andres Lakahni MD [address] [place] [address] Secretary Specialist Cardiology 07/08/19 Aki Ross MD [address] [place] [address] [place] [address] Primary Secretary Specialist Cardiovascular Disease 07/08/19 Ursula Boo MD [address] [place] [address] Gastroenterology 06/07/20 Rocio Youssef PA-C [address] [place] [address] Physician Collision Center Manager Gastroenterology 06/07/20 Emeterio Valencia MD [address] [place] [address] Clinician Pulmonary Medicine 06/20/20 documented as of this encounter
--- OUTSIDE RECORDS SUMMARY | 2024-12-19 16:43 | XMS_ITS | Encounter Summary ---
Author Organization [facility] Address [address] [place] [address] Care Team Providers Care Night Custodian Name Role Phone Blake, Gary Primary Care Provider [phone] Encounter Details Date Type Department Care Team (Latest Contact Info) Description 07/19/2021 Transcribed Orders [facility] [address] [place] [address] Kiya Macias, SCREENPLAY WRITER [address] [place] [address] Fatty metamorphosis of liver (Primary Dx); Acid phosphatase elevated Social History Tobacco Use Types Packs/Day Years Used Date Smoking Tobacco: Former Cigarettes 1 40 0 07/14/1972 - 07/14/2012 Smokeless Tobacco: Never Alcohol Use Standard Drinks/Week Comments Not Currently 0 (1 standard drink = 0.6 oz pur e alcohol) soc PHQ-2 Answer Date Recorded PHQ-2 Total Score 0 07/10/2021 Comments Unknown Sex and Gender Information Value Date Recorded Sex Assigned at Not on file Legal Sex Female 9:43 AM EST Gender Identity Not on file Sexual Orientation Not on file documented as of this encounter Plan of Treatment Upcoming Encounters Date Type Department Care Team (Late st Contact Info) Description 12/28/2024 10:40 AM EST Follow Up Congestive Heart Failure Program at [address] [facility] [address] [facility] 2nd [place] [address] Diana Coppola MD [address] [place] [address] 06/07/2025 10:30 AM EDT Follow Up Neuromuscular Medicine at [address] [facility] [address] [facility] [place], [place] [address] Silvestre Maldonado MD [address] [place] [phone] 10/05/2025 12:30 PM EST Appointment [facility] - [address] [place] [address] Aparna Chang MD [address] [place] [phone] Hallway, Pft Walk 10/05/2025 1:00 PM EST Appointment [facility] - [address] [place] [address] Aparna Chang MD [address] [place] [address], [place] [address] 1, Pft Procedure Room 10/05/2025 2:00 PM EST Office Visit [facility] [address], [place] [phone] Aparna Chang MD [address] [place] [phone] documented as of this encounter Results * Qycdj-7-tvgiyrbxzbh phenotype (07/19/2021 4:05 PM EDT) Vtxoc-4-Efogvegql in Phenotype SEE BELOW 08/01/2021 5:14 PM EDT [facility] Comment: THIS PATIENT'S BICNV-2-LONNZACHALF 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 90% of normal individuals have the MM phenotype, with normal quantitative AAT levels. Many phenotypic patterns have been described, including deficiency states with F, S, Z, or other alleles. As a general estimation, compared to M allele of 100% of normal C-0-Ucruvuidxqs protein, the S allele produces approximately 60% and the Z allele 20%. For example, an MS phenotype would have about 80% of normal D-5-Kajsrxsdpsn protein level, a 50% contribution from the M allele and 30% from the S allele. A ZZ phenotype would have about 20% of normal levels, a 10% contribution from each Z gene. The F allele has normal P-9-Dledexkwgrz levels, but the kinetics of elastase inhibition is not as efficient as an M allele product; F alleles should be considered functionally mildly deficient. Other variants are identifiable by phenotypic analysis. These include CM, DP, EM, GM, IS, LM, M1M2, M3M3, MP, MT, XX, MY, and M1N. I, P, T and null alleles are considered deleterious. C, D, E, G, L, M1, M2, M3, X and Y alleles are generally considered normal variants. The MZ-Tao phenotype is a normal variant; care should be taken to avoid confusion with the deficient MZ phenotype. Test performed by [employer] ?[id number] [facility], ?[place] [address] ? Bsa/Aml Compliance Officer: Milana Baptiste MD,PHD,DECLAN Test Reported by [employer], [employer] [facility], [address] [place], [place] Teodoro Shore M.D., Ph.D., Director of Laboratories , [place] [id number] Blood Venipuncture / Unknown 07/19/2021 4:05 PM EDT 07/19/2021 4:05 PM EDT us Kiya Macias SCREENPLAY WRITER LAB BLOOD ORDER LUCA Final Result [facility] * Tissue transglutaminase, IgA (07/19/2021 4:05 PM EDT) Pathologist [facility] tTG, IgA 1.1 <7.0 Catarina U/mL 07/22/2021 1:14 PM EDT [facility] Comment: <7 ?? Catarina U/mL Negative 7-10 Catarina U/mL Equivocal >10 ??Catarina U/mL Positive Blood Venipuncture / Unknown 07/19/2021 4:05 PM EDT 07/19/2021 4:05 PM EDT us Kiya Macias SCREENPLAY WRITER LAB BLOOD ORDER LUCA Final Result Performing Organization Address City/[facility]/ZIP Co de Phone Number [facility] [address] [place] [address] * Immunoglobulin M (07/19/2021 4:05 PM EDT) Pathologist [facility] Immunoglobulin M 184 40 - 230 mg/dL 07/19/2021 5:33 PM EDT [facility] Blood Venipuncture / Unknown 07/19/2021 4:05 PM EDT 07/19/2021 4:05 PM EDT us Kiya Macias SCREENPLAY WRITER LAB BLOOD [place] [address], [facility] [phone] * Immunoglobulin G (07/19/2021 4:05 PM EDT) Pathologist [facility] Immunoglobulin G 1,240 700 - 1,600 mg/dL 07/19/2021 5:33 PM EDT [facility] Blood Venipuncture / Unknown 07/19/2021 4:05 PM EDT 07/19/2021 4:05 PM EDT Kiya FerrarirobertoMiguel ÁngelBlunt SCREENPLAY WRITER LAB BLOOD ORDER LUCA Final Result Performing Organization Address [facility]/ZIP Co de Phone Number [address] [phone] * Immunoglobulin A (07/19/2021 4:05 PM EDT) Immunoglobulin A 353 70 - 400 mg/dL 07/19/2021 5:33 PM EDT [facility] Blood Venipuncture / Unknown 07/19/2021 4:05 PM EDT 07/19/2021 4:05 PM EDT Kiya FerrarirobertoMiguel ÁngelJose Raul SCREENPLAY WRITER LAB BLOOD ORDER LUCA Final Result Performing Organization Address [facility]/[place] [address], [facility] [phone] * (ABNORMAL) Gamma GT (07/19/2021 4:05 PM EDT) GGT 123(H) 5 - 85 U/L 07/19/2021 5:33 PM EDT [facility] Blood Venipuncture / Unknown 07/19/2021 4:05 PM EDT 07/19/2021 4:05 PM EDT Kiya FerrarirobertoMiguel ÁngelBlunt SCREENPLAY WRITER LAB BLOOD ORDER LUCA Final Result Performing Organization Address City/[facility]/[place] [address], [facility] [phone] * Mvasp-3-swqwyirocgw (BH GH L LMW YH) (07/19/2021 4:05 PM EDT) Hzepw-5-Ystxycgts in 183 83 - 199 mg/dL 07/24/2021 12:45 PM EDT [facility] Comment: Test Performed at: [facility] [employer] [address] ?? Teodoro Shore M.D., Ph.D.,Director of Laboratories Blood Venipuncture / Unknown 07/19/2021 4:05 PM EDT 07/19/2021 4:05 PM EDT us Kiyalyndsay Macias SCREENPLAY WRITER LAB BLOOD ORDER LUCA Final Result [facility] * Ceruloplasmin (07/19/2021 4:05 PM EDT) Ceruloplasmin 33 18 - 51 mg/dL 07/20/2021 2:53 PM EDT [facility] DEPARTMENT OF LABORATORY MEDICINE Blood Venipuncture / Unknown 07/19/2021 4:05 PM EDT 07/19/2021 4:05 PM EDT us Kiya Valeratrinidad Macias SCREENPLAY WRITER LAB BLOOD ORDER LUCA Final Result Performing Organization Address City/[facility] Co de Phone Number [facility] DEPARTMENT OF LABORATORY MEDICINE [address] [place] [address] * Anti-smooth muscle antibody, IgG (L LMW Q) (07/19/2021 4:05 PM EDT) Actin (Smooth Muscle) Antibody, IgG <20 <20 U 07/24/2021 12:07 AM EDT [facility] Comment: Reference Range: ?? <20 U: Negative >or=20 U: Positive Antibodies recognizing actin are the main component of smooth muscle antibodies associated with auto- immune liver disease. Actin antibodies are found in approximately 75% of patients with autoimmune hepatitis (AIH) type 1, approximately 65% of patients with autoimmune cholangitis, approximately 30% of patients with primary biliary cirrhosis and approximately 2% of healthy controls. High values are closely correlated with AIH type 1. Test Performed at: [facility] [employer] [facility] [address] [place], [place] ?? Teodoro Shore M.D., Ph.D.,Director of Laboratories Blood Venipuncture / Unknown 07/19/2021 4:05 PM EDT 07/19/2021 4:05 PM EDT Kiya WahlKody MEDEIROS LAB BLOOD ORDER LUCA Final Result Performing Organization Address [facility] de Phone Number [facility] * Protime and INR (07/19/2021 4:05 PM EDT) Pathologist [facility] Prothrombin Time 11.0 9.9 - 11.8 seconds 07/19/2021 5:22 PM EDT [facility] INR 1.1 0.9 - 1.1 07/19/2021 5:22 PM EDT [facility] Comment: RECOMMENDED INR THERAPEUTIC RANGES: ?STANDARD INTENSITY......2.0-3.0 ?HIGH INTENSITY..........2.5-3.5 Blood Venipuncture / Unknown 07/19/2021 4:05 PM EDT 07/19/2021 4:05 PM EDT [facility] - 07/19/2021 5:22 PM EDT As of January 10, 2020 this assay is being performed on new instrumentation. Please note that the reference ranges may have changed. us Kiya Reginatrinidad Macias APRN LAB BLOOD ORDER LUCA Final Result Performing Organization Address [facility] [place] [address], [facility] [phone] * (ABNORMAL) Liver fibrosis, FibroTest-ActiTest panel (BH GH LMW Q YH) (07/19/2021 4:05 PM EDT) Fibrosis Score 0.30 07/26/2021 2:24 PM EDT [facility] Fibrosis Stage F1 07/26/2021 2:24 PM EDT [facility] Fibrosis Interpretation SEE BELOW 07/26/2021 2:24 PM EDT [facility] Comment: minimal fibrosis Fibro Test Score (f) ??Metavir Score ??f>=0 and f<=0.21 : F0 (no fibrosis) f>0.21 and f<=0.27 : F0-F1 (no fibrosis) f>0.27 and f<=0.31 : F1 (minimal fibrosis) f>0.31 and f<=0.48 : F1-F2 (minimal fibrosis) f>0.48 and f<=0.58 : F2 (moderate fibrosis) f>0.58 and f<=0.72 : F3 (advanced fibrosis) f>0.72 and f<=0.74 : F3-F4 (advanced fibrosis) f>0.74 and f<=1.00 : F4 (severe fibrosis) Necroinflammat Activity Score 0.03 07/26/2021 2:24 PM EDT [facility] Necroinflammat Activity Grade A0 07/26/2021 2:24 PM EDT [facility] Necroinflammat Interpretation SEE BELOW 07/26/2021 2:24 PM EDT [facility] Comment: no activity ActiTest Score (a) ?Metavir Score ??a>=0 and a<=0.17 : A0 (no activity) a>0.17 and a<=0.29 : A0-A1 (no activity) a>0.29 and a<=0.36 : A1 (minimal activity) a>0.36 and a<=0.52 : A1-A2 (minimal activity) a>0.52 and a<=0.60 : A2 (significant activity) a>0.60 and a<=0.62 : A2-A3 (significant activity) a>0.62 and a<=1.00 : A3 (severe activity) Jdyer-0-Pnulbctwrpd in 186 106 - 279 mg/dL 07/26/2021 2:24 PM EDT [facility] Haptoglobin 209 43 - 212 mg/dL 07/26/2021 2:24 PM EDT [facility] Apolipoprotein A-1 132 101 - 198 mg/dL 07/26/2021 2:24 PM EDT [facility] Bilirubin, Total 0.4 0.2 - 1.2 mg/dL 07/26/2021 2:24 PM EDT [facility] GGT 90(H) 3 - 65 U/L 07/26/2021 2:24 PM EDT [facility] Alanine Aminotransferase (ALT) 10 6 - 29 U/L 07/26/2021 2:24 PM EDT [facility] Reference ID [id number] 07/26/2021 2:24 PM EDT [facility] Footnote SEE BELOW 07/26/2021 2:24 PM EDT [facility] Comment: The reliability of results is dependent on compliance with the preanalytical and analytical conditions recommended by [employer]. The tests have to be deferred for: acute hemolysis, acute hepatitis, acute inflammation, extra hepatic cholestasis. The advice of a specialist should be sought for interpretation in chronic hemolysis and Gilbert's syndrome. The test interpretation is not validated in liver transplant patients. Isolated extreme values of one of the components should lead to caution in interpreting the results. In case of discordance between a biopsy result and a test, it is recommended to seek the advice of a specialist. The causes of these discordances could be due to a flaw of the test or to a flaw in the biopsy: i.e. a liver biopsy has a 33% variability rate for one fibrosis stage. FibroTest is interpretable for chronic hepatitis B and C, alcoholic and non alcoholic steatosis. ActiTest is interpretable for chronic hepatitis B and C. The performance characteristics have been determined by [employer], [place]. It has not been cleared or approved by the U.S. Food and Drug Administration. Performance characteristics refer to the analytical performance of the test. [employer], the associated logo, [employer] and all associated [employer] gonzales are the registered trademarks of [employer]. All third constitution party gonzales - (R) and (TM) - are the property of their respective owners. (C) 2593-2509 [employer]. All rights reserved. Test performed by [employer] ?[id number], ?[place] [address] ? Bsa/Aml Compliance Officer: Milana Baptiste MD,PHD,DECLAN Test Reported by [facility] [employer], [employer], [address] [place], [place] [address]y, [place] Teodoro Shore M.D., Ph.D., Director of Laboratories , [facility] [id number] Blood Venipuncture / Unknown 07/19/2021 4:05 PM EDT 07/19/2021 4:05 PM EDT Kiya Macias SCREENPLAY WRITER LAB BLOOD ORDER LUCA Final Result [facility] documented in this encounter Visit Diagnoses Diagnosis Fatty metamorphosis of liver- Primary Other chronic nonalcoholic liver disease Acid phosphatase elevated Other nonspecific abnormal serum enzyme levels documented in this encounter Additional Health Concerns Assessment Noted Time PHQ-9 Depression Total Score: 0 07/10/20 21 10:52 AM EDT documented as of this encounter Care Teams Night Custodian Relationship Specialty Start Date End Date Jace Blake DO [address] [place] [address] PCP - General Family Medicine 08/01/14 documented as of this encounter
--- OUTSIDE RECORDS SUMMARY | 2024-12-19 16:43 | XMS_ITS | Encounter Summary ---
Author Organization [facility] Address [address] [place] [address] Care Team Providers Care Foundation Assistant Name Role Phone Jace Blake MD Primary Care Provider Provider, Rachid GARCIA Unavailable Unavaila Andres Topete MD Unavailable [phone] Aki Ross MD Unavailable [phone] Ursula Boo MD Unavailable Rocio Youssef PA-C Unavailable Emeterio Valencia MD Unavailable Encounter Details Date Type Department Care Team (Late st Contact Info) Description 04/23/2021 Scanned Document [facility] [place] [address] [place] [address] Provider, External, [address] [place] [address] Social History Tobacco Use Types Packs/Day Years [...] Description 03/02/2025 1:40 PM EDT Office Visit [facility] Dermatology [address] [address] Nico Bailey MD [address] [place] [address] 03/22/2025 1:30 PM EDT Office Visit [facility] [address] [place] [phone] Ursula Boo MD [address], [place] [address] 05/04/2025 10:00 AM EDT Office Visit [facility] [address] [address] Aki Ross MD [address] [place] [address] documented as of this encounter Visit Diagnoses Not on filedocumented in this encounter Care Teams Foundation Assistant Relationship Specialty Start Date End Date Jace Blake MD [address] [place] [address] PCP - General Psychiatry, General 05/04/17 Rachid Robles MD 04/27/17 Andres Lakhani MD [address] [place] [address] Community Relations Specialist Cardiology 07/08/19 Aki Ross MD [address] [place] [address] Primary Community Relations Specialist Cardiovascular Disease 07/08/19 Ursula Boo MD [address] [address] Gastroenterology 06/07/20 Rocio Youssef PA-C [address] [place] [address] Physician Instrumentation Engineer Gastroenterology 06/07/20 Emeterio Valencia MD [address] [address] Clinician Pulmonary Medicine 06/20/20 documented as of this encounter
--- OUTSIDE RECORDS SUMMARY | 2024-12-19 16:43 | XMS_ITS | Encounter Summary ---
Author Organization [facility] Address [address] [place] [address] Care Team Providers Care Straightener And Aligner Name Role Phone Jace Blake MD Primary Care Provider Provider, Rachid GARCIA Unavailable Unavaila Andres Topete MD Unavailable [phone] Aki Ross MD Unavailable [phone] Ursula Boo MD Unavailable Rocio Youssef PA-C Unavailable Emeterio Valencia MD Unavailable Encounter Details Date Type Department Care Team (Late st Contact Info) Description 04/29/2022 Telephone [facility] [address] [place] [phone] Tl Mancera, [place] [address] [place] [address] Social History Tobacco Use Types Packs/Day Years [...] encounter Miscellaneous Notes * Telephone Encounter - David King MA - 04/29/2022 11:51 AM EDT Sent as requested * Telephone Encounter - Radha Martinez - 04/29/2022 11:47 AM EDT Pt called asking if we could fax her labs to the [place] [facility]. Pt said she misplace her slip and [facility] uses the [employer] system. Pt is currently at the lab waiting. Please advise documented in this encounter Plan of Treatment Upcoming Encounters Date Type Department Care Team (Late st Contact Info) Description 03/02/2025 1:40 PM EDT Office Visit [facility] Dermatology [address] [phone] Nico Bailey MD [address] [place] [address] 03/22/2025 1:30 PM EDT Office Visit [facility] [address] [place] [phone] Ursula Boo MD [address] [place] [address] 05/04/2025 10:00 AM EDT Office Visit [facility] [place] [phone] Aki Ross MD [address] [place] [address] documented as of this encounter Visit Diagnoses Not on filedocumented in this encounter Care Teams Straightener And Aligner Relationship Specialty Start Date End Date Jace Blake MD [address] [place] [address] PCP - General Psychiatry, General 05/04/17 Rachid Robles MD 04/27/17 Andres Lakhani MD [address] [place] [address] Used Car Sales Manager Cardiology 07/08/19 Aki Ross MD [address] [place] [address] Primary Used Car Sales Manager Cardiovascular Disease 07/08/19 Ursula Boo MD [address] [place] [address] Gastroenterology 06/07/20 Rocio Youssef PA-C [address] [place] [address] Physician Nursing Instructor Gastroenterology 06/07/20 Emeterio Valencia MD [address] [place] [address] Clinician Pulmonary Medicine 06/20/20 documented as of this encounter
--- OUTSIDE RECORDS SUMMARY | 2024-12-19 16:43 | XMS_ITS | Clinical Summary ---
Author Organization [facility] Address [address] [place] [address] Care Team Providers Care Lithographic General Worker Name Role Phone Jace Blake Primary Care Provider [phone] Social History Tobacco Use Types Packs/Day Years Used Date Smoking Tobacco: Never Assessed Sex and Gender Information Value Date Recorded Sex Assigned at Not on file Gender Identity Not on file Sexual Orientation Not on file Obstetrics History Last Filed Vital Signs Vital Sign Reading Time Taken Comments Blood Pressure 120/79 03/11/2024 11:07 AM EDT Pulse 80 03/11/2024 11:07 AM EDT Temperature - - Respiratory Rate - - Oxygen Saturation - - Inhaled Oxygen Concentration - - Weight 95.3 kg (210 lb) 03/11/2024 11:07 AM EDT Height 182.9 cm (6') 03/11/2024 11:07 AM EDT Body Mass Index 28.48 03/11/2024 11:07 AM EDT Plan of Treatment Health Maintenance Due Date Last Done Comments Pneumococcal Vaccine: 65+ Years (1 of 2 - PCV) 1954 DTaP,Tdap,and Td Vaccines (1 - Tdap) 1967 Zoster Vaccines (1 of 2) 1998 RSV Immunization Patients 60+ Years Old (1 - 1-dose 75+ series) 2023 Depression Screening 06/22/2024 Falls Risk Assessment 06/22/2024 Hepatitis C Screening 06/22/2024 Osteoporosis Screening (Bone Density Screening) 06/22/2024 Social Influencers of Health Screening 06/22/2024 COVID-19 Vaccine (1 - season) 2024 Influenza Vaccine (#1) 2024 Hypertension/CHF/CAD Annual BMP Blood Test 03/12/2025 03/12/2024, 03/12/2024, 03/11/2024, Additional history exists HIB Vaccines Aged Out No longer eligi ble based on patient's age to complete this topic HPV Vaccines Aged Out No longer eligi ble based on patient's age to complete this topic Hepatitis A Vaccines Aged Out No long er eligible based on patient's age to complete this topic Hepatitis B Vaccines Aged Out No long er eligible based on patient's age to complete this topic IPV Vaccines Aged Out No longer eligi ble based on patient's age to complete this topic MMR Vaccines Aged Out No longer eligi ble based on patient's age to complete this topic Meningococcal ACWY Vaccine Aged Out N o longer eligible based on patient's age to complete this topic RSV Immunization Patients Under 20 months Aged Out No longer eligible based on patient's age to complete this topic Varicella Vaccines Aged Out No longer eligible based on patient's age to complete this topic Care Teams Lithographic General Worker Relationship Specialty Start Date End Date Jace Blake DO [address] [place] [address] PCP - General 03/11/24
--- OUTSIDE RECORDS SUMMARY | 2024-12-19 16:43 | XMS_ITS | Encounter Summary ---
Author Organization [facility] Address [address] [place] [address] Care Team Providers Care Cinema Or Theatre Manager Name Role Phone Jace Blake MD Primary Care Provider Provider, Rachid GARCIA Unavailable Unavaila Andres Topete MD Unavailable [phone] Aki Ross MD Unavailable [phone] Ursula Boo MD Unavailable Rocio Youssef PA-C Unavailable Emeterio Valencia MD Unavailable Encounter Details Date Type Department Care Team (Late st Contact Info) Description 05/12/2018 Scanned Document [facility] [place] [address] [place] [address] Provider, External, [address] [place] [address] Social History Tobacco Use Types Packs/Day Years [...] Description 03/02/2025 1:40 PM EDT Office Visit [facility] Dermatology [address] [place] [address] Nico Bailey MD [address] [place] [address] 03/22/2025 1:30 PM EDT Office Visit [facility] [address] [place] [phone] Ursula Boo MD [address] [place] [address] 05/04/2025 10:00 AM EDT Office Visit [facility] [place] [address] [facility] [address] [place] [address] Aki Ross MD [address] [place] [address] documented as of this encounter Visit Diagnoses Not on filedocumented in this encounter Care Teams Cinema Or Theatre Manager Relationship Specialty Start Date End Date Jace Blake MD [address] [place] [address] PCP - General Psychiatry, General 05/04/17 Rachid Robles MD 04/27/17 Andres Lakhani MD [address] [place] [address] Investment Strategist Cardiology 07/08/19 Aki Ross MD [address] [place] [phone] Primary Investment Strategist Cardiovascular Disease 07/08/19 Ursula Boo MD [address] [place] [address] Gastroenterology 06/07/20 Rocio Youssef PA-C [address] [address] Physician Sports Lawyer Gastroenterology 06/07/20 [place] [address] [address] Clinician Pulmonary Medicine 06/20/20 documented as of this encounter
--- OUTSIDE RECORDS SUMMARY | 2024-12-19 16:43 | XMS_ITS | Encounter Summary ---
Author Organization [facility] Address [address] [place] [phone] Care Team Providers Care Export Packer Name Role Phone HaydenJace Primary Care Provider [phone] Encounter Details Date Type Department Care Team (Late st Contact Info) Description 04/24/2021 Scanned Document INTERFACE DEFAULT [address] [place] [address] System, Provider Not In Social History Tobacco Use Types Packs/Day Years Used Date Smoking Tobacco: Former Cigarettes 1 40 0 07/14/1972 - 07/14/2012 Smokeless Tobacco: Never Alcohol Use Standard Drinks/Week Comments Not Currently 0 (1 standard drink = 0.6 oz pur e alcohol) soc PHQ-2 Answer Date Recorded PHQ-2 Total Score 0 04/17/2021 Comments Unknown Sex and Gender Information Value Date Recorded Sex Assigned at Not on file Legal Sex Female 9:43 AM EST Gender Identity Not on file Sexual Orientation Not on file documented as of this encounter Plan of Treatment Upcoming Encounters Date Type Department Care Team (Late st Contact Info) Description 12/28/2024 10:40 AM EST Follow Up Congestive Heart Failure Program at [address] [place] [address] Diana Coppola MD [address] [place] [phone] 06/07/2025 10:30 AM EDT Follow Up [facility] at 800 [facility] 800 [place] [address] Silvestre Maldonado MD 800 [place] [phone] 10/05/2025 12:30 PM EST Appointment PULMONARY FUNCTION LABORATORY - [address] [place] [address] Aparna Chang MD [address] [place] [phone] Hallway, Pft Walk 10/05/2025 1:00 PM EST Appointment PULMON[facility]CTION LABORATORY - [address] [address] Aparna Chang MD [address] [place] [phone] 1, Pft Procedure Room 10/05/2025 2:00 PM EST Office Visit [facility] [address] [phone] Aparna Chang MD [address] [place] [phone] documented as of this encounter Visit Diagnoses Not on filedocumented in this encounter Additional Health Concerns Assessment Noted Time PHQ-9 Depression Total Score: 0 04/17/20 21 11:27 AM EDT documented as of this encounter Care Teams Export Packer Relationship Specialty Start Date End Date Jace Blake DO [address] [place] [address] PCP - General Family Medicine 08/01/14 documented as of this encounter
--- OUTSIDE RECORDS SUMMARY | 2024-12-19 16:43 | XMS_ITS | Encounter Summary ---
Author Organization [facility] Address [address] [place] [address] Care Team Providers Care Bouffant Curtain Machine Tender Name Role Phone Jace Blake MD Primary Care Provider Provider, Conversion Unavailable Unavaila Andres Topete MD Unavailable [phone] Aki Ross MD Unavailable [phone] Ursula Boo MD Unavailable Rocio Youssef PA-C Unavailable Emeterio Valencia MD Unavailable Encounter Details Date Type Department Care Team (Late st Contact Info) Description 02/13/2021 Scanned Document [facility] & Vascular [place] 100 [facility], [address] [place] [address] Aki Ross MD [address] [place] [address] Social History Tobacco Use Types Packs/Day Years [...] Description 03/02/2025 1:40 PM EDT Office Visit [facility] Dermat[facility] [place] [address] [place] [address] Nico Bailey MD [address] [place] [address] 03/22/2025 1:30 PM EDT Office Visit [address] [address] Ursula Boo MD [address] [address] 05/04/2025 10:00 AM EDT Office Visit [facility] [place] [address] [address] Aki Ross MD [address] [place] [address] documented as of this encounter Visit Diagnoses Not on filedocumented in this encounter Care Teams Bouffant Curtain Machine Tender Relationship Specialty Start Date End Date Jace Blake MD [address]8 [place] [address] PCP - General Psychiatry, General 05/04/17 Rachid Robles MD 04/27/17 Andres Lakhani MD [address] [place] [address] Inspector Set Up And Lay Out Cardiology 07/08/19 Aki Ross MD [address] [place] [address] Primary Inspector Set Up And Lay Out Cardiovascular Disease 07/08/19 Ursula Boo MD [address] [place] [address] Gastroenterology 06/07/20 Rocio Youssef PA-C [address] [place] [address] Physician Armhole Raiser Lockstitch Gastroenterology 06/07/20 Emeterio Valencia MD [address] [place] [address] Clinician Pulmonary Medicine 06/20/20 documented as of this encounter
--- OUTSIDE RECORDS SUMMARY | 2024-12-19 16:43 | XMS_ITS | Encounter Summary ---
Author Organization [facility] Address [address] [place] [address] Care Team Providers Care Extender Name Role Phone Jace Blake MD Primary Care Provider Provider, Conversion Unavailable Unavaila Andres Topete MD Unavailable [phone] Aki Ross MD Unavailable [phone] Ursula Boo MD Unavailable Rocio Youssef PA-C Unavailable Emeterio Valencia MD Unavailable Encounter Details Date Type Department Care Team (Late st Contact Info) Description 06/05/2023 Scanned Document [facility] Heart & Vascular [place] [address] [address] Aki Ross MD [address] [place] [address] Social History Tobacco Use Types Packs/Day [...] Description 03/02/2025 1:40 PM EDT Office Visit [facility] Dermatology [place] 35 [place] [address] Nico Bailey MD 35 [place] [address] 03/22/2025 1:30 PM EDT Office Visit [place] [address] [place] [address] Ursula Boo MD [address], [place] [address] 05/04/2025 10:00 AM EDT Office Visit [facility] Heart & Vascular [place] [address] [address] Aki Ross MD [address] [place] [phone] documented as of this encounter Visit Diagnoses Not on filedocumented in this encounter Care Teams Extender Relationship Specialty Start Date End Date Jace Blake MD [address] [place] [address] PCP - General Psychiatry, General 05/04/17 Rachid Robles MD 04/27/17 Andres Lakhani MD [address] [place] [address] Sales And Retail Management Recruiter Cardiology 07/08/19 Aki Ross MD [address] [place] [address] Primary Sales And Retail Management Recruiter Cardiovascular Disease 07/08/19 Ursula Boo MD [address] [place] [address] Gastroenterology 06/07/20 Rocio Youssef PA-C [address] [place] [address] Physician Hydroelectric Station Operator Gastroenterology 06/07/20 Emeterio Valencia MD [address] [place] [address] Clinician Pulmonary Medicine 06/20/20 documented as of this encounter
--- OUTSIDE RECORDS SUMMARY | 2024-12-19 16:43 | XMS_ITS | Encounter Summary ---
Author Organization [facility] Address [address] [place] [address] Care Team Providers Care Plaster Helper Name Role Phone Jace Blake MD Primary Care Provider Provider, Rachid GARCIA Unavailable Unavaila Andres Topete MD Unavailable [phone] Aki Ross MD Unavailable [phone] Ursula Boo MD Unavailable Rocio Youssef PA-C Unavailable Emeterio Valencia MD Unavailable Encounter Details Date Type Department Care Team (Late st Contact Info) Description 04/30/2023 Scanned Document [facility] [address] [place] [phone] Ursula Boo MD [address] [place], [place] [address] Social History Tobacco Use Types Packs/Day Years [...] suspected to have Coronavirus/COVID-19? No / Unsure 04/30/2023 11:02 AM EDT documented as of this encounter Plan of Treatment Upcoming Encounters Date Type Department Care Team (Late st Contact Info) Description 03/02/2025 1:40 PM EDT Office Visit [facility] Dermatology [address] [phone] Nico Bailey MD [address] [place] [address] 03/22/2025 1:30 PM EDT Office Visit [facility] [address] [place] [address] Ursula Boo MD [address] [place] [address] 05/04/2025 10:00 AM EDT Office Visit [facility] Heart & Vascular [place] [address] [phone] Aki Ross MD [address] [place] [address] documented as of this encounter Visit Diagnoses Not on filedocumented in this encounter Care Teams Plaster Helper Relationship Specialty Start Date End Date Jace Blake MD [address] [place] [address] PCP - General Psychiatry, General 05/04/17 Rachid Robles MD 04/27/17 Andres Lakhani MD [address] [place] [address] Pantograph I Engraver Cardiology 07/08/19 Aki Ross MD [address] [place] [address] Primary Pantograph I Engraver Cardiovascular Disease 07/08/19 Ursula Boo MD [address] [place] [address] Gastroenterology 06/07/20 Rocio Youssef PA-C [address] [place] [address] Physician Accounting Supervisor Gastroenterology 06/07/20 Emeterio Valencia MD [address] [place] [address] Clinician Pulmonary Medicine 06/20/20 documented as of this encounter
--- OUTSIDE RECORDS SUMMARY | 2024-12-19 16:43 | XMS_ITS | Encounter Summary ---
Author Organization [facility] Address [address] [place] [address] Care Team Providers Care Type Rolling Machine Operator Name Role Phone Jace Blake MD Primary Care Provider Provider, Conversion Unavailable Unavaila Andres Topete MD Unavailable [phone] Aki Ross MD Unavailable [phone] Ursula Boo MD Unavailable Rocio Youssef PA-C Unavailable Emeterio Valencia MD Unavailable Encounter Details Date Type Department Care Team (Late st Contact Info) Description 11/14/2020 Scanned Document [facility] [address] [place] [address] Ursula Boo MD [address] [place] [address] Social History Tobacco Use Types Packs/Day Years [...] Description 03/02/2025 1:40 PM EDT Office Visit [facility] Dermatology [place] 35 [place] [address] Nico Bailey MD [address] [place] [address] 03/22/2025 1:30 PM EDT Office Visit [place] [address] [place] [address] Ursula Boo MD [address] [place] [address] 05/04/2025 10:00 AM EDT Office Visit [facility] Heart [facility] [place] [address] [address] Aki Ross MD [address] [place] [phone] documented as of this encounter Visit Diagnoses Not on filedocumented in this encounter Care Teams Type Rolling Machine Operator Relationship Specialty Start Date End Date Jace Blake MD [address] [place] [address] PCP - General Psychiatry, General 05/04/17 Rachid Robles MD 04/27/17 Andres Lakhani MD [address] [place] [address] Umbrella Cutter Cardiology 07/08/19 Aki Ross MD [address] [place] [address] Primary Umbrella Cutter Cardiovascular Disease 07/08/19 Ursula Boo MD [facility] [place] [address] Gastroenterology 06/07/20 Rocio Youssef PA-C [address] [place] [address] Physician Layboy Operator Gastroenterology 06/07/20 Emeterio Valencia MD [address] [place] [address] Clinician Pulmonary Medicine 06/20/20 documented as of this encounter
--- OUTSIDE RECORDS SUMMARY | 2024-12-19 16:43 | XMS_ITS | Encounter Summary ---
Author Organization [facility] Address [address] [place] [address] Care Team Providers Care Lens Assorter Name Role Phone Jace Blake MD Primary Care Provider [phone] Provider, Conversion Unavailable Unavaila Andres Topete MD Unavailable [phone] Aki Ross MD Unavailable [phone] Ursula Boo MD Unavailable Rocio Youssef PA-C Unavailable Emeterio Valencia MD Unavailable Encounter Details Date Type Department Care Team (Late st Contact Info) Description 04/23/2021 Scanned Document [facility] [address] [place] [address] Ursula Boo MD [address] [place], [place] [phone] Social History Tobacco Use Types Packs/Day Years [...] Description 03/02/2025 1:40 PM EDT Office Visit [facility] Dermatology [address] [address] Nico Bailey MD [address] [place] [phone] 03/22/2025 1:30 PM EDT Office Visit [place] [address] [place] [address] Ursula Boo MD [address] [place] [address] 05/04/2025 10:00 AM EDT Office Visit [facility] Heart & Vascular [place] [address] [address] Aki Ross MD [address] [place] [address] documented as of this encounter Visit Diagnoses Not on filedocumented in this encounter Care Teams Lens Assorter Relationship Specialty Start Date End Date Jace Blake MD [facility]8 [place] [address] PCP - General Psychiatry, General 05/04/17 ProviderRachid MD 04/27/17 Andres Lakhani MD [address] [place] [address] Reimbursement Analyst Cardiology 07/08/19 Aki Ross MD [address] [place] [address] Primary Reimbursement Analyst Cardiovascular Disease 07/08/19 Ursula Boo MD [address] [place] [address] Gastroenterology 06/07/20 Rocio Youssef PA-C [address] [place] [address] Physician Radiotelephone Technical Operator Gastroenterology 06/07/20 Emeterio Valencia MD [address] [place] [address] Clinician Pulmonary Medicine 06/20/20 documented as of this encounter
--- OUTSIDE RECORDS SUMMARY | 2024-12-19 16:43 | XMS_ITS | Encounter Summary ---
Author Organization [facility] Address [address] [place] [address] Care Team Providers Care Nurse School Name Role Phone Jace Blake MD Primary Care Provider Provider, Rachid GARCIA Unavailable Unavaila Andres Topete MD Unavailable [phone] Aki Ross MD Unavailable [phone] Ursula Boo MD Unavailable Rocio Youssef PA-C Unavailable [phone] Emeterio Valencia MD Unavailable Reason for Visit * Reason Comments Medication Refill Encounter Details Date Type Department Care Team (Late st Contact Info) Description 05/28/2023 Refill [facility] Heart & Vascular [place] [address] [address] Maren Verdugo APRN [address] [place] [address] Medication Refill Social History Tobacco Use Types Packs/Day Years [...] Description 03/02/2025 1:40 PM EDT Office Visit [facility] Dermatology [address] [phone] Nico Bailey MD [address] [place] [address] 03/22/2025 1:30 PM EDT Office Visit [address] [address] Ursula Boo MD [address] [place] [address] 05/04/2025 10:00 AM EDT Office Visit [facility] Heart & Vascular [place] [address] [phone] Aki Ross MD [address] [place] [address] documented as of this encounter Visit Diagnoses Diagnosis Chronic diastolic heart failure (HCC) Chronic diastolic heart failure documented in this encounter Care Teams Nurse School Relationship Specialty Start Date End Date Jace Blake MD [address] [place] [address] PCP - General Psychiatry, General 05/04/17 ProviderRachid MD 04/27/17 Andres Lakhani MD [address]82 [place] [address] Supervisor Accounting Clerks Cardiology 07/08/19 Aki Ross MD [address] [address] Primary Supervisor Accounting Clerks Cardiovascular Disease 07/08/19 Ursula Boo MD [address] [place] [address] Gastroenterology 06/07/20 Rocio Youssef PA-C [address] [address] Physician Gps Navigation Installer Gastroenterology 06/07/20 Emeterio Valencia MD [address] [place] [address] Clinician Pulmonary Medicine 06/20/20 documented as of this encounter
--- OUTSIDE RECORDS SUMMARY | 2024-12-19 16:43 | XMS_ITS | Continuity of Care Document ---
Author Organization [facility] Address [address] [place] [phone] Phone Care Team Providers Care Geospatial Developer Name Role Phone Cece OD OD, Gamal Unavailable Unavailable Allergies, Adverse Reactions, Alerts Substance Reaction Status Criticality No Known Allergies Active No Inform ation Advance Directives Directive Yes / No Effective Date File Name No Information Encounters Encounter Description Practice Location Reason(s) For Visit Diagnoses Date Provider Providers Copied on Encounter [facility] , [address] [place] [address], [id number], [place] tel:[phone] [facility] Noé Stephens Other secondary cataract, left eyeAge-related nuclear cataract, left eyeUnspecified blepharitis right upper eyelidConjunctival hemorrhage, left eyeAge-related nuclear cataract, right eyeAge-related nuclear cataract, bilateralOther secondary cataract, bilateralVitreous degeneration, bilateralOther secondary cataract, right eyeDry eye syndrome of bilateral lacrimal glandsPersonal history of other diseases of the nervous system and sense organsUnspecified blepharitis left upper eyelid Apr-0 1 [facility] Gmaal. [address] [place], [place], [id number] , [place]. tel: [phone] [facility] , [address] [place] [address], [id number], [place] tel:[phone] No Location No Information Apr-2 0 Janespowell OD Gamal. [address] [place], [place], [id number] , [place]. tel:[phone] [facility] , [address] [place] [address], [id number], [place] tel:[phone] [facility] Noé Stephens Dry eye syndrome of bilateral lacrimal glandsVitreous degeneration, bilateral Feb-2 0 Cece MATHEW Gamal. [address] [place], [place], [id number] , [place]. tel:[phone] Family History Family Member Type Diagnosis Age [...]
--- OUTSIDE RECORDS SUMMARY | 2024-12-19 16:43 | XMS_ITS | Encounter Summary ---
Author Organization [facility] Address [address] [place] [address] Care Team Providers Care Draw In Hand Name Role Phone HaydenJace Primary Care Provider [phone] Encounter Details Date Type Department Care Team (Late st Contact Info) Description 06/23/2014 Scanned Document Gastrointestinal Surgery at [address] [place] [address] [place] [address] Chino Cordova MD PhD [address] [place] [phone] Social History Tobacco Use Types Packs/Day Years Used Date Smoking Tobacco: Never Assessed Comments Unknown Sex and Gender Information Value Date Recorded Sex Assigned at Not on file Legal Sex Female 9:43 AM EST Gender Identity Not on file Sexual Orientation Not on file documented as of this encounter Plan of Treatment Upcoming Encounters Date Type Department Care Team (Late st Contact Info) Description 12/28/2024 10:40 AM EST Follow Up Congestive Heart Failure Program at [address] [place] [address] 2nd [place] [address] Diana Coppola MD [address] [place] [phone] 06/07/2025 10:30 AM EDT Follow Up Neuromuscular Medicine at [address] 800 [facility] [place] [address] Silvestre Maldonado MD 800 [place] [phone] 10/05/2025 12:30 PM EST Appointment PULMONARY FUNCTION LABORATORY - [address] [address] Aparna Chang MD [address] [place] [phone] Hallway, Pft Walk 10/05/2025 1:00 PM EST Appointment PULMON[facility]CTION LABORATORY - [address] [address] Aparna Chang MD [address] [place] [phone] 1, Pft Procedure Room 10/05/2025 2:00 PM EST Office Visit [facility] [address] [phone] Aparna Chang MD [address] [place] [phone] documented as of this encounter Visit Diagnoses Not on filedocumented in this encounter Care Teams Draw In Hand Relationship Specialty Start Date End Date Jace Blake DO [address] [place] [address] PCP - General Family Medicine 08/01/14 documented as of this encounter
--- OUTSIDE RECORDS SUMMARY | 2024-12-19 16:43 | XMS_ITS | Encounter Summary ---
Author Organization [facility] Address [address] [place] [address] Care Team Providers Care Ic Designer Standard Cells Name Role Phone Jace Blake MD Primary Care Provider Provider, Rachid GARCIA Unavailable Unavaila Andres Topete MD Unavailable [phone] Aki Ross MD Unavailable [phone] Ursula Boo MD Unavailable Rocio Youssef PA-C Unavailable [phone] Emeterio Valencia MD Unavailable Encounter Details Date Type Department Care Team (Late st Contact Info) Description 07/01/2023 Scanned Document [facility] Heart & Vascular [place] [address] [place] [address] Provider, External, [address] [place] [address] Social History Tobacco Use Types Packs/Day Years [...] 03/02/2025 1:40 PM EDT Office Visit [facility] Dermatology [place] [address] [place] [address] Nico Bailey MD [address] [place] [address] 03/22/2025 1:30 PM EDT Office Visit [address] [address] Ursula Boo MD [address] [address] 05/04/2025 10:00 AM EDT Office Visit [facility] Heart & Vascular [place] [address] [address] Aki Ross MD [address] [place] [address] documented as of this encounter Visit Diagnoses Not on filedocumented in this encounter Care Teams Ic Designer Standard Cells Relationship Specialty Start Date End Date Jace Blake MD [address] [place] [address] PCP - General Psychiatry, General 05/04/17 Rachid Robles MD 04/27/17 Andres Lakhani MD [address] [place] [address] Furniture Detailer Cardiology 07/08/19 Aki Ross MD [address] [place] [address] Primary Furniture Detailer Cardiovascular Disease 07/08/19 Ursula Boo MD [address] [place] [address] Gastroenterology 06/07/20 Rocio Youssef PA-C [address] [place] [address] Physician Mechanical Service Specialist Gastroenterology 06/07/20 Emeterio Valencia MD [address] [place] [address] Clinician Pulmonary Medicine 06/20/20 documented as of this encounter
--- OUTSIDE RECORDS SUMMARY | 2024-12-19 16:44 | XMS_ITS | Encounter Summary ---
Author Organization [facility] Address [address] [place] [address] Care Team Providers Care Filling Station Attendant Name Role Phone Blake, Gary Primary Care Provider [phone] Encounter Details Date Type Department Care Team (Late st Contact Info) Description 04/13/2023 Abstract [facility] [address] [phone] Aparna Chang MD [address] [place] [phone] Social History Tobacco Use Types Packs/Day Years [...] Up Congestive Heart Failure Program at [address] [address] Diana Coppola MD 800 [facility] [place] [phone] 06/07/2025 10:30 AM EDT Follow Up [facility] at 800 [facility] 800 [place] [address] Silvestre Maldonado MD 800 [place] [phone] 10/05/2025 12:30 PM EST Appointment PULMONARY FUNCTION LABORATORY - [address] [address] Aparna Chang MD [address] [place] [phone] Hallway, Pft Walk 10/05/2025 1:00 PM EST Appointment PULMONARY FUNCTION LABORATORY - [address] [address] Aparna Chang MD [address] [place] [phone] 1, Pft Procedure Room 10/05/2025 2:00 PM EST Office Visit [facility] [address] [phone] Aparna Chang MD [address] [place] [phone] documented as of this encounter Visit Diagnoses Not on filedocumented in this encounter Additional Health Concerns Assessment Noted Time PHQ-9 Depression Total Score: 0 07/10/20 21 10:52 AM EDT documented as of this encounter Care Teams Filling Station Attendant Relationship Specialty Start Date End Date Jace Blake DO [address] [place] [phone] PCP - General Family Medicine 08/01/14 documented as of this encounter
--- OUTSIDE RECORDS SUMMARY | 2024-12-19 16:44 | XMS_ITS | Encounter Summary ---
Author Organization [facility] and [facility] Address [address] [place] [address] Care Team Providers Care Truck Driver Name Role Phone HaydenJace Primary Care Provider [phone] Encounter Details Date Type Department Care Team (Latest Contact Info) Description 04/30/2023 Transcribed Orders [facility] [address] [place] [address] Aki Ross MD [address] [address] Chronic diastolic heart failure (HC Code) (Primary Dx) Social History Tobacco Use Types Packs/Day Years [...] Up Congestive Heart Failure Program at [address] [place] [address] Diana Coppola MD 800 [place] [address] 06/07/2025 10:30 AM EDT Follow Up [facility] at 800 [facility] 800 [facility] [place], [place] [address] Silvestre Maldonado MD 800 [place] [address] 10/05/2025 12:30 PM EST Appointment [facility] - [address] [address] Aparna Chang MD [address] [place] [phone] Hallway, Pft Walk 10/05/2025 1:00 PM EST Appointment [facility] - [address] [address] Apanra Chang MD [address] [place] [phone] 1, Pft Procedure Room 10/05/2025 2:00 PM EST Office Visit [facility] [address] [phone] Aparna Chang MD [address] [place] [phone] documented as of this encounter Results * (ABNORMAL) NT-proBrain natriuretic peptide (04/30/2023 11:46 AM EDT) NT-proBNP 280.0(H) <125.0 pg/mL 04/30/2023 1:14 PM EDT [facility] Blood Venipuncture / Unknown 04/30/2023 11:46 AM EDT 04/30/2023 11:46 AM EDT us Aki Ross MD LAB BLOOD ORDERABLES [place] [address], [facility] [phone] documented in this encounter Visit Diagnoses Diagnosis Chronic diastolic heart failure (HC Code)- Primary Chronic diastolic heart failure documented in this encounter Additional Health Concerns Assessment Noted Time PHQ-9 Depression Total Score: 0 07/10/20 21 10:52 AM EDT documented as of this encounter Care Teams Truck Driver Relationship Specialty Start Date End Date Jace Blake DO [address] [place] [address] PCP - General Family Medicine 08/01/14 documented as of this encounter
--- OUTSIDE RECORDS SUMMARY | 2024-12-19 16:44 | XMS_ITS | Continuity of Care Document ---
Author Organization [facility] Address [address] [facility] 200 [place] [address] Phone Care Team Providers Care Hospital Admitting Clerk Name Role Phone Awais Alford MD Unavailable Unavailable Advance Directives Directive Yes / No Effective Date File Name No Information Encounters Encounter Description Practice Location Reason(s) For Visit Diagnoses Date Provider Providers Copied on Encounter [facility], [address] [place] [address] 200, [place], [id number], [phone] [facility] Office No Information 3 Rocío Ernandez. 8255 [facility] 200, [place], [place], [id number] . tel: [phone] Family History Family Member Type Diagnosis Age [...]
--- OUTSIDE RECORDS SUMMARY | 2024-12-19 16:44 | XMS_ITS | Encounter Summary ---
Author Organization [facility] and [facility] Address [address] [place] [address] Care Team Providers Care Move Coordinator Name Role Phone Blake, Gary Primary Care Provider [phone] Encounter Details Date Type Department Care Team (Latest Contact Info) Description 04/03/2021 Transcribed Orders [facility] Specimens [address] [place] [address] eYssica Ortega MD [address] [place] [phone] Lupus (HC Code) (Primary Dx); Pulmonary hypertension (HC Code); Sjogren's syndrome, with unspecified organ involvement (HC Code); Pre-op testing Social History Tobacco Use Types Packs/Day Years Used Date Smoking Tobacco: Former Cigarettes 1 40 0 07/14/1972 - 07/14/2012 Smokeless Tobacco: Never Alcohol Use Standard Drinks/Week Comments Not Currently 0 (1 standard drink = 0.6 oz pur e alcohol) soc PHQ-2 Answer Date Recorded PHQ-2 Score 0 10/03/2020 Comments Unknown Sex and Gender Information Value Date Recorded Sex Assigned at Not on file Legal Sex Female 9:43 AM EST Gender Identity Not on file Sexual Orientation Not on file documented as of this encounter Plan of Treatment Upcoming Encounters Date Type Department Care Team ( st Contact Info) Description 12/28/2024 10:40 AM EST Follow Up Congestive Heart Failure Program at 800 [facility] 800 [facility] 2nd [place] [address] Diana Coppola MD 800 [place] [address] 06/07/2025 10:30 AM EDT Follow Up Neuromuscular Medicine at 800 [facility] 800 [facility] [place] [address] Silvestre Maldonado MD 800 [place] [address] 10/05/2025 12:30 PM EST Appointment P[facility] LAB[facility] - [address] [phone] Aparna Chang MD [address] [place] [phone] Hallway, Pft Walk 10/05/2025 1:00 PM EST Appointment [facility] - [address] [phone] Aparna Chang MD [address] [place] [phone] 1, Pft Procedure Room 10/05/2025 2:00 PM EST Office Visit [facility] [address] [phone] Aparna Chang MD [address] [place] [phone] documented as of this encounter Results * COVID-19 Clearance or for Placement Only (04/06/2021 8:42 AM EDT) SARS-CoV-2 RNA (COVID-19) Negative Negative 04/06/2021 3:25 PM EDT [facility] Comment: A negative result does not preclude SARS-CoV-2 infections and should not be used as the sole basis for treatment or other management decisions. ?? This assay is a Nucleic Acid Amplification Test (NAAT)/RT-PCR or TMA ([employer] System). This is run on the [employer] system. It has been validated for clinical use by the [facility] (CLIA #: [id number]). It has been granted Emergency Use Authorization by the [place] FDA. Note that falsely negative results can be due to poor sample quality, suboptimal sample type, low viral load, and viral genome variability. This test has not been evaluated for use in asymptomatic individuals. Test ordering and interpretation is at the discretion of the ordering provider. Patient Information: https://www.fda.gov/media/987293/download ?? Provider Information: https://www.fda.gov/media/029021/download Test performance has not been evaluated in asymptomatic patients. Test ordering and result interpretation is at the discretion of the ordering provider. Viral NASOPHARYNGEAL STRUCTURE / Unknown Collection / Unknown 04/06/2021 8:42 AM EDT 04/06/2021 11:10 AM EDT Yessica Ortega MD MICROBIOLOGY - GENERAL ORDERAB LES Final Result Performing Organization Address [facility]/State/[facility] Co de Phone Number [address] [phone] documented in this encounter Visit Diagnoses Diagnosis Lupus- Primary Systemic lupus erythematosus Pulmonary hypertension (HC Code) Other chronic pulmonary heart diseases Sjogren's syndrome, with unspecified organ involvement (HC CODE) (HC Code) Pre-op testing Preoperative examination, unspecified documented in this encounter Additional Health Concerns Assessment Noted Time PHQ-9 Depression Total Score: 0 10/03/20 20 12:10 PM EST documented as of this encounter Care Teams Move Coordinator Relationship Specialty Start Date End Date Jace Blake DO [address] [place] [address] PCP - General Family Medicine 08/01/14 documented as of this encounter
--- OUTSIDE RECORDS SUMMARY | 2024-12-19 16:44 | XMS_ITS | Encounter Summary ---
Author Organization [facility] Address [address] [place] [address] Care Team Providers Care Pulmonologist Name Role Phone Jace Blake MD Primary Care Provider Provider, aRchid GARCIA Unavailable Unavaila Andres Topete MD Unavailable [phone] Aki Ross MD Unavailable [phone] Ursula Boo MD Unavailable Rocio Youssef PA-C Unavailable Emeterio Valencia MD Unavailable Encounter Details Date Type Department Care Team (Late st Contact Info) Description 02/27/2023 Scanned Document [facility] [address] [place] [phone] Ursula Boo MD [address] [place], [place] [address] Social History Tobacco Use Types Packs/Day Years [...] Description 03/02/2025 1:40 PM EDT Office Visit [facility] Dermatology [address] [address] Nico Bailey MD [address] [place] [address] 03/22/2025 1:30 PM EDT Office Visit [address] [address] Ursula Boo MD [address], [place] [address] 05/04/2025 10:00 AM EDT Office Visit [facility] [place] [address] [address] Aki Ross MD [address] [place] [address] documented as of this encounter Visit Diagnoses Not on filedocumented in this encounter Care Teams Pulmonologist Relationship Specialty Start Date End Date Jace Blake MD [address] [place] [address] PCP - General Psychiatry, General 05/04/17 Rachid Robles MD 04/27/17 Andres Lakhani MD [address] [place] [address] Equipment Operator/Laborer/Supervisor Cardiology 07/08/19 Aki Ross MD [address] [place] [address] [place] [address] Primary Equipment Operator/Laborer/Supervisor Cardiovascular Disease 07/08/19 Ursula Boo MD [address] [place] [address] Gastroenterology 06/07/20 Rocio Youssef PA-C [address] [place] [address] Physician Power Barker Operator Gastroenterology 06/07/20 Emeterio Valencia MD [address] [place] [address] Clinician Pulmonary Medicine 06/20/20 documented as of this encounter
--- OUTSIDE RECORDS SUMMARY | 2024-12-19 16:44 | XMS_ITS | Encounter Summary ---
Author Organization [facility] and [facility] Address [address] [place] [address] Care Team Providers Care Monument Mason Name Role Phone HaydenJace Primary Care Provider [phone] Encounter Details Date Type Department Care Team (Latest Contact Info) Description 08/20/2020 Transcribed Orders [facility] [address] [address] Aki Ross MD [address] [place] [phone] Chronic diastolic heart failure (HC Code) (Primary Dx) Social History Tobacco Use Types Packs/Day Years Used Date Smoking Tobacco: Former Cigarettes 1 40 0 07/14/1972 - 07/14/2012 Smokeless Tobacco: Never Alcohol Use Standard Drinks/Week Comments Not Currently 0 (1 standard drink = 0.6 oz pur e alcohol) soc Comments Unknown Sex and Gender Information Value Date Recorded Sex Assigned at Not on file Legal Sex Female 9:43 AM EST Gender Identity Not on file Sexual Orientation Not on file documented as of this encounter Plan of Treatment Upcoming Encounters Date Type Department Care Team (Late st Contact Info) Description 12/28/2024 10:40 AM EST Follow Up Congestive Heart Failure Program at [address] [address] Diana Coppola MD 800 [place] [address] 06/07/2025 10:30 AM EDT Follow Up [facility] at 800 [facility] 800 [facility] [place], [place] [address] Silvestre Maldonado MD 800 [place] [address] 10/05/2025 12:30 PM EST Appointment [facility] - [address] [phone] Aparna Chang MD [address] [place] [phone] Hallway, Pft Walk 10/05/2025 1:00 PM EST Appointment [facility] - [address] [address] Aparna Chang MD [address] [place] [phone] 1, Pft Procedure Room 10/05/2025 2:00 PM EST Office Visit [facility] [address] [address] Aparna Chang MD [address] [place] [phone] documented as of this encounter Procedures Procedure Name Priority Date/Time Associated Diagnosis Comments POTASSIUM Routine 08/20/2020 3:45 PM EDT Chronic diastolic heart failure (HC Code) documented in this encounter Results * Potassium (08/20/2020 3:45 PM EDT) [facility] Signature Potassium 4.2 3.5 - 5.1 mmol/L 08/20/2020 4:39 PM EDT [facility] Blood Venipuncture / Unknown 08/20/2020 3:45 PM EDT 08/20/2020 3:45 PM EDT us Aki Ross MD LAB BLOOD ORDERABLES Final Res ult Performing Organization Address City/State/[facility] [place] [address], [facility] [phone] documented in this encounter Visit Diagnoses Diagnosis Chronic diastolic heart failure (HC Code)- Primary Chronic diastolic heart failure documented in this encounter Care Teams Monument Mason Relationship Specialty Start Date End Date Jace Blake DO [address] [place] [address] PCP - General Family Medicine 08/01/14 documented as of this encounter
--- OUTSIDE RECORDS SUMMARY | 2024-12-19 16:44 | XMS_ITS | Encounter Summary ---
Author Organization [facility] and [facility] Address [address] [place] [address] Care Team Providers Care Cable Swager Name Role Phone Blake, Gary Primary Care Provider [phone] Encounter Details Date Type Department Care Team (Late st Contact Info) Description 08/23/2020 Abstract [facility] [address] [facility], 2nd [facility], [address] [place], [place] [address] Aparna Chang MD [address] [place] [phone] Social History Tobacco Use Types Packs/Day [...] Up Congestive Heart Failure Program at [address] [place], [place] [address] Diana Coppola MD 800 [facility] [place] [phone] 06/07/2025 10:30 AM EDT Follow Up [facility] at 800 [facility] 800 [facility] [address] Silvestre Maldonado MD 800 [facility] [place] [phone] 10/05/2025 12:30 PM EST Appointment P[facility] LAB[facility]AT[facility] - [address] [address] Aparna Chang MD [address] [place] [phone] Hallway, Pft Walk 10/05/2025 1:00 PM EST Appointment PUL[facility] LAB[facility] - [address] [address] Aparna Chang MD [address] [place] [phone] 1, Pft Procedure Room 10/05/2025 2:00 PM EST Office Visit [facility] [address] [address] Aparna Chang MD [address] [place] [phone] documented as of this encounter Visit Diagnoses Not on filedocumented in this encounter Care Teams Cable Swager Relationship Specialty Start Date End Date Jace Blake DO [address] [place] [address] PCP - General Family Medicine 08/01/14 documented as of this encounter
--- OUTSIDE RECORDS SUMMARY | 2024-12-19 16:44 | XMS_ITS | Encounter Summary ---
Author Organization [facility] and [facility] Address [address] [place] [address] Care Team Providers Care Local Az Truck Driver Name Role Phone Jace Blake DO Primary Care Provider [phone] Encounter Details Date Type Department Care Team (Late st Contact Info) Description 06/02/2023 Scanned Document [facility] [address] [place] [address] External, Provider Social History Tobacco Use Types Packs/Day Years [...] Description 12/28/2024 10:40 AM EST Follow Up [facility] Cong[facility] Failure [facility] at [address] [place] [address] 2[address] [place] [address] Diana Coppola MD [address] [place] [phone] 06/07/2025 10:30 AM EDT Follow Up Neuromuscular Medicine at [address] [facility] [place] [address] Silvestre Maldonado MD [address] [place] [phone] 10/05/2025 12:30 PM EST Appointment PULMON[facility] LAB[facility]AT[facility] - [address] [address] Aparna Chang MD [address] [place] [phone] Hallway, Pft Walk 10/05/2025 1:00 PM EST Appointment PUL[facility] - [address] [address] Aparna Chang MD [address] [place] [phone] 1, Pft Procedure Room 10/05/2025 2:00 PM EST Office Visit [facility] [address] [phone] Aparna Chang MD [address] [place] [phone] documented as of this encounter Procedures Procedure Name Priority Date/Time Associated Diagnosis Comments CARDIAC MISC.?? RESULT SCAN Routine 06/02/2023 documented in this encounter Results * Cardiac Misc.?? Result Scan (06/02/2023) us Provider External CV CARDIAC REPORT (CVR) Final Result documented in this encounter Visit Diagnoses Not on filedocumented in this encounter Additional Health Concerns Assessment Noted Time PHQ-9 Depression Total Score: 0 07/10/20 21 10:52 AM EDT documented as of this encounter Care Teams Local Az Truck Driver Relationship Specialty Start Date End Date Jace Blake DO [address] [place] [address] PCP - General Family Medicine 08/01/14 documented as of this encounter
--- OUTSIDE RECORDS SUMMARY | 2024-12-19 16:44 | XMS_ITS | Encounter Summary ---
Author Organization [facility] and [facility] Address [address] [place] [address] Care Team Providers Care Director Life Name Role Phone HaydenJace Primary Care Provider [phone] Encounter Details Date Type Department Care Team (Late st Contact Info) Description 06/05/2023 Transcribed Orders [facility] [address] [address] Meghana Hunter MD [address] [place] [phone] Social History Tobacco Use Types Packs/Day Years [...] Up Congestive Heart Failure Program at [address] [address] Diana Coppola MD 800 [place] [address] 06/07/2025 10:30 AM EDT Follow Up [facility] at 800 [facility] 800 [place] [address] Sivlestre Maldonado MD 800 [place] [address] 10/05/2025 12:30 PM EST Appointment P[facility] - [address] [phone] Aparna Chang MD [address] [place] [phone] Hallway, Pft Walk 10/05/2025 1:00 PM EST Appointment P[facility] - [address] [address] Aparna Chang MD [address] [place] [phone] 1, Pft Procedure Room 10/05/2025 2:00 PM EST Office Visit [facility] [address] [address] Aparna Chang MD [address] [place] [phone] documented as of this encounter Visit Diagnoses Not on filedocumented in this encounter Additional Health Concerns Assessment Noted Time PHQ-9 Depression Total Score: 0 07/10/20 21 10:52 AM EDT documented as of this encounter Care Teams Director Life Relationship Specialty Start Date End Date Jace Blake DO [address] [place] [phone] PCP - General Family Medicine 08/01/14 documented as of this encounter
--- OUTSIDE RECORDS SUMMARY | 2024-12-19 16:44 | XMS_ITS | Encounter Summary ---
Author Organization [facility] and [facility] Address [address] [place] [address] Care Team Providers Care Shredder Operator Name Role Phone Miguel Angel Blakey Primary Care Provider Encounter Details Date Type Department Care Team (Latest Contact Info) Description 04/03/2021 Transcribed Orders [facility] DRAW STATION [place] [address] [place] [phone] Ambrosio Wallace MD PhD [address] [place] [phone] Idiopathic peripheral neuropathy (Primary Dx) Social History Tobacco Use Types [...] Up Congestive Heart Failure Program at [address] [address] Diana Coppola MD 800 [place] [address] 06/07/2025 10:30 AM EDT Follow Up [facility] at [address] [facility] [address] [facility] [place], [place] [phone] Silvestre Maldonado MD 800 [place] [phone] 10/05/2025 12:30 PM EST Appointment [facility] - [address] [place] [address] Aparna Chang MD [address] [place] [address], [place] [phone] Hallway, Pft Walk 10/05/2025 1:00 PM EST Appointment [facility] - [address] [place] [address] Aparna Chang MD [address] [place] [address], [place] [phone] 1, Pft Procedure Room 10/05/2025 2:00 PM EST Office Visit [facility] [address] [phone] Aparna Chang MD [address] [place] [address], [place] [phone] documented as of this encounter Procedures Procedure Name Priority Date/Time Associated Diagnosis Comments IMMUNOFIXATION ELECTROPHORESIS, SERUM Routine 04/03/2021 10:18 AM EDT Idiopathic peripheral neuropathy SJOGREN'S ANTIBODIES (SS-A,SS-B) Routine 04/03/2021 10:18 AM EDT Idiopathic peripheral neuropathy SEDIMENTATION RATE (ESR) Routine 04/03/2021 10:18 AM EDT Idiopathic peripheral neuropathy PROTEIN ELECTROPHORESIS, SERUM (GH L) Routine 04/03/2021 10:18 AM EDT Idiopathic peripheral neuropathy PROTEIN, TOTAL Routine 04/03/2021 10:18 AM EDT Idiopathic peripheral neuropathy VITAMIN B12 Routine 04/03/2021 10:18 AM EDT Idiopathic peripheral neuropathy ALBUMIN Routine 04/03/2021 10:18 AM EDT Idiopathic peripheral neuropathy documented in this encounter Results * Protein electrophoresis, serum (GH L LMW) (04/03/2021 10:18 AM EDT) [facility] Protein, Total 7.2 6.1 - 8.1 g/dL 04/07/2021 6:40 AM EDT [facility] Albumin 3.8 3.8 - 4.8 g/dL 04/07/2021 6:40 AM EDT [facility] Ypwbt-8-Cejyyhtm 0.3 0.2 - 0.3 g/dL 04/07/2021 6:40 AM EDT [facility] Ewufn-1-Waetzrin 0.8 0.5 - 0.9 g/dL 04/07/2021 6:40 AM EDT [facility] Dwei-1-Wsivjmkk 0.5 0.4 - 0.6 g/dL 04/07/2021 6:40 AM EDT [facility] Sckc-8-Lksnnwbd 0.5 0.2 - 0.5 g/dL 04/07/2021 6:40 AM EDT [facility] Gamma Globulin 1.3 0.8 - 1.7 g/dL 04/07/2021 6:40 AM EDT [facility] Abnormal Protein Band 1 SEE BELOW 04/07/2021 6:40 AM EDT [facility] Comment: No M Tian detected. ? Reference Range: None Detected Interpretation SEE BELOW 04/07/2021 6:40 AM EDT [facility] Comment: Normal Electrophoretic Pattern Test Performed at: [facility] [address] [place], [place] ??[phone] Teodoro Shore M.D., Ph.D.,Director of Laboratories Blood Venipuncture / Unknown 04/03/2021 10:18 AM EDT 04/03/2021 11:15 AM EDT us Ambrosio Wallace MD PhD LAB BLOOD ORDERABLES Final Result [facility] * Albumin (04/03/2021 10:18 AM EDT) Albumin 3.7 3.4 - 5.0 g/dL 04/03/2021 11:27 AM EDT [facility] Blood Venipuncture / Unknown 04/03/2021 10:18 AM EDT 04/03/2021 11:15 AM EDT us Ambrosio Wallace MD PhD LAB BLOOD ORDERABLES Final Result Performing Organization Address [facility] de Phone Number [address] [phone] * Protein, total (04/03/2021 10:18 AM EDT) Total Protein 7.7 6.4 - 8.2 g/dL 04/03/2021 11:28 AM EDT [facility] Blood Venipuncture / Unknown 04/03/2021 10:18 AM EDT 04/03/2021 11:15 AM EDT us Ambrosio Wallace MD PhD LAB BLOOD ORDERABLES Final Result Performing Organization Address City/[facility] Co de Phone Number [address] [phone] * Immunofixation, serum (04/03/2021 10:18 AM EDT) Immunofixation Interp., Serum SEE BELOW 04/07/2021 7:43 PM EDT [facility] Comment: No abnormal bands are present on immunofixation. Reference Range: No monoclonal proteins detected Test Performed at: [facility] [address] [place], [place] ??[address] Teodoro Shore M.D., Ph.D.,Director of Laboratories Blood Venipuncture / Unknown 04/03/2021 10:18 AM EDT 04/03/2021 10:32 AM EDT Ambrosio Wallace MD PhD LAB BLOOD ORDERABLES Final Result [facility] * Sjogren's Antibodies (SS-A,SS-B) (04/03/2021 10:18 AM EDT) Pathologist [facility] Sjogrens Ab, SS-A (Ro) 0.4 <7.0 Catarina U/mL 04/05/2021 1:48 PM EDT [facility] Comment: <7 ?? Catarina U/mL Negative 7-10 Catarina U/mL Equivocal >10 ??Catarina U/mL Positive Sjogrens Ab, SS-B (La) 0.3 <7.0 Catarina U/mL 04/05/2021 1:48 PM EDT [facility] Comment: <7 ?? Catarina U/mL Negative 7-10 Catarina U/mL Equivocal >10 ??Catarina U/mL Positive Blood Venipuncture / Unknown 04/03/2021 10:18 AM EDT 04/03/2021 10:33 AM EDT Ambrosio Wallace MD PhD LAB BLOOD ORDERABLES Final Result Performing Organization Address [facility]/State/ZIP Co de Phone Number [facility] [address] [place] [phone] * (ABNORMAL) Sedimentation rate (ESR) (04/03/2021 10:18 AM EDT) Sedimentation Rate (ESR) 50(H) 0 - 20 mm/hr 04/03/2021 10:55 AM EDT [facility] Blood Venipuncture / Unknown 04/03/2021 10:18 AM EDT 04/03/2021 10:32 AM EDT Narrative [facility] - 04/03/2021 10:55 AM EDT As of November 06, 2020 this assay is being performed on new instrumentation. Please note that the reference range has changed. us Ambrosio Wallace MD PhD LAB BLOOD ORDERABLES Final Result [facility] [address] [phone] * Vitamin B12 (04/03/2021 10:18 AM EDT) Vitamin B12 596 211 - 911 pg/mL 04/03/2021 7:00 PM EDT [facility] Blood Venipuncture / Unknown 04/03/2021 10:18 AM EDT 04/03/2021 10:33 AM EDT Ambrosio Wallace MD PhD LAB BLOOD ORDERABLES Final Result [facility] [address] [place] [address] documented in this encounter Visit Diagnoses Diagnosis Idiopathic peripheral neuropathy- Primary Unspecified hereditary and idiopathic peripheral neuropathy documented in this encounter Additional Health Concerns Assessment Noted Time PHQ-9 Depression Total Score: 0 10/03/20 20 12:10 PM EST documented as of this encounter Care Teams Shredder Operator Relationship Specialty Start Date End Date Jace Blake DO [address] [place] [address] PCP - General Family Medicine 08/01/14 documented as of this encounter
--- OUTSIDE RECORDS SUMMARY | 2024-12-19 16:44 | XMS_ITS | Encounter Summary ---
Author Organization [facility] and [facility] Address [address] [place] [address] Care Team Providers Care Manager Financial Reporting Name Role Phone Blake, Gary Primary Care Provider [phone] Encounter Details Date Type Department Care Team (Late st Contact Info) Description 08/16/2020 Scanned Document [facility] Health Information Management [address] [place] [address] External, Provider Social History Tobacco Use Types [...] Up Congestive Heart Failure Program at [address] [place] [address] Diana Coppola MD [address] [place] [phone] 06/07/2025 10:30 AM EDT Follow Up Neuromuscular Medicine at 800 [facility] 800 [facility] [place] [address] Silvestre Maldonado MD 800 [address] [facility] [phone] 10/05/2025 12:30 PM EST Appointment [facility] - [address] [address] Aparna Chang MD [address] [place] [phone] Hallway, Pft Walk 10/05/2025 1:00 PM EST Appointment [facility] - [address] [address] Aparna Chang MD [address] [place] [phone] 1, Pft Procedure Room 10/05/2025 2:00 PM EST Office Visit [facility] [address] [phone] Aparna Chang MD [address] [place] [phone] documented as of this encounter Procedures Procedure Name Priority Date/Time Associated Diagnosis Comments LAB SCAN Routine 08/16/2020 documented in this encounter Results * Lab Scan (08/16/2020) us Provider External LAB BLOOD ORDERABLES Final Res ult documented in this encounter Visit Diagnoses Not on filedocumented in this encounter Care Teams Manager Financial Reporting Relationship Specialty Start Date End Date Jace Blake DO [address] [place] [address] PCP - General Family Medicine 08/01/14 documented as of this encounter
--- OUTSIDE RECORDS SUMMARY | 2024-12-19 16:44 | XMS_ITS | Encounter Summary ---
Author Organization [facility] and [facility] Address [address] [place] [address] Care Team Providers Care Emt Driver Name Role Phone Jace Blake DO Primary Care Provider [phone] Encounter Details Date Type Department Care Team (Late st Contact Info) Description 04/05/2021 Orders Only [facility] - [address] [address] Ines Roman, WALDEMAR [address] [place] [phone] Pre-op testing Social History Tobacco Use Types [...] Up Congestive Heart Failure Program at 800 [facility] [address] [place] [address] Diana Coppola MD 800 [facility] [place] [address] 06/07/2025 10:30 AM EDT Follow Up [facility] at 800 [facility] 800 [facility] [place] [address] Silvestre Maldonado MD 800 [facility] [place] [phone] 10/05/2025 12:30 PM EST Appointment [facility] - [address] [address] Aparna Chang MD [address] [place] [phone] Hallway, Pft Walk 10/05/2025 1:00 PM EST Appointment [facility] - [address] [address] Aparna Chang MD [address] [place] [phone] 1, Pft Procedure Room 10/05/2025 2:00 PM EST Office Visit [facility] [address] [phone] Aparna Chang MD [address] [place] [phone] documented as of this encounter Results * SARS CoV-2 (COVID-19) PCR - [facility] Labs (Patient Scheduled for Surgery/Procedure) (04/15/2021 8:29 AM EDT) SARS-CoV-2 RNA (COVID-19) Negative Negative 04/15/2021 2:20 PM EDT [facility] Comment: A negative result does not preclude SARS-CoV-2 infections and should not be used as the sole basis for treatment or other management decisions. ?? This assay is a Nucleic Acid Amplification Test (NAAT)/RT-PCR or TMA (Quaamher System). This is run on the GTX Messaging system. It has been validated for clinical use by the [facility] (CLIA #: [id number]). It has been granted Emergency Use Authorization by the [place] FDA. Note that falsely negative results can be due to poor sample quality, suboptimal sample type, low viral load, and viral genome variability. This test has not been evaluated for use in asymptomatic individuals. Test ordering and interpretation is at the discretion of the ordering provider. Patient Information: https://www.fda.gov/media/247575/download ?? Provider Information: https://www.fda.gov/media/671522/download Test performance has not been evaluated in asymptomatic patients. Test ordering and result interpretation is at the discretion of the ordering provider. Viral NASOPHARYNGEAL STRUCTURE / Unknown Collection / Unknown 04/15/2021 8:29 AM EDT 04/15/2021 10:23 AM EDT Ines Roman APRN MICROBIOLOGY - GENERAL ORDERABLES Final Result Performing Organization Address City/State/[facility] Co de Phone Number [address] [phone] documented in this encounter Visit Diagnoses Diagnosis Pre-op testing Preoperative examination, unspecified documented in this encounter Additional Health Concerns Assessment Noted Time PHQ-9 Depression Total Score: 0 10/03/20 20 12:10 PM EST documented as of this encounter Care Teams Emt Driver Relationship Specialty Start Date End Date Jace Blake DO [address] [place] [address] PCP - General Family Medicine 08/01/14 documented as of this encounter
--- OUTSIDE RECORDS SUMMARY | 2024-12-19 16:44 | XMS_ITS | Encounter Summary ---
Author Organization [facility] and [facility] Address [address] [place] [phone] Care Team Providers Care Chemical Packager Name Role Phone HaydenJace Primary Care Provider [phone] Encounter Details Date Type Department Care Team (Late st Contact Info) Description 04/03/2021 Transcribed Orders [facility] [address] [place], [place] [phone] Yessica Ortega MD [address] [place] [phone] Social History Tobacco Use Types Packs/Day Years [...] Up Congestive Heart Failure Program at [address] [address] Diana Coppola MD 800 [place] [address] 06/07/2025 10:30 AM EDT Follow Up [facility] at 800 [facility] 800 [place] [address] Silvestre Maldonado MD 800 [place] [address] 10/05/2025 12:30 PM EST Appointment [facility] - [address] [phone] Aparna Chang MD [address] [place] [phone] Hallway, Pft Walk 10/05/2025 1:00 PM EST Appointment [facility] - [address] [address] Aparna Chang MD [address] [place] [phone] 1, Pft Procedure Room 10/05/2025 2:00 PM EST Office Visit [facility] [address] [phone] Aparna Chang MD [address] [place] [phone] documented as of this encounter Visit Diagnoses Not on filedocumented in this encounter Additional Health Concerns Assessment Noted Time PHQ-9 Depression Total Score: 0 10/03/20 20 12:10 PM EST documented as of this encounter Care Teams Chemical Packager Relationship Specialty Start Date End Date Jace Blake DO [address] [place] [phone] PCP - General Family Medicine 08/01/14 documented as of this encounter
--- OUTSIDE RECORDS SUMMARY | 2024-12-19 16:44 | XMS_ITS | Encounter Summary ---
Author Organization [facility] and [facility] Address [address] [place] [address] Care Team Providers Care Office Services Associate Name Role Phone HaydenJace Primary Care Provider [phone] Encounter Details Date Type Department Care Team (Late st Contact Info) Description 03/27/2021 Scanned Document INTERFACE DEFAULT [address] [place] [phone] System, Provider Not In Social History Tobacco [...] Up Congestive Heart Failure Program at [address] [place] [address] Diana Coppola MD [address] [place] [phone] 06/07/2025 10:30 AM EDT Follow Up [facility] at 800 [facility] 800 [facility] [place] [address] Silvestre Maldonado MD 800 [facility] [place] [phone] 10/05/2025 12:30 PM EST Appointment [facility] - [address] [place] [address] Aparna Chang MD [address] [place] [phone] Hallway, Pft Walk 10/05/2025 1:00 PM EST Appointment [facility] - [address] [address] Aparna Chang MD [address] [place] [phone] 1, Pft Procedure Room 10/05/2025 2:00 PM EST Office Visit [facility] [address] [address] Aparna Chang MD [address] [place] [phone] documented as of this encounter Visit Diagnoses Not on filedocumented in this encounter Additional Health Concerns Assessment Noted Time PHQ-9 Depression Total Score: 0 10/03/20 20 12:10 PM EST documented as of this encounter Care Teams Office Services Associate Relationship Specialty Start Date End Date Jace Blake DO [address] [place] [address] PCP - General Family Medicine 08/01/14 documented as of this encounter
--- OUTSIDE RECORDS SUMMARY | 2024-12-19 16:44 | XMS_ITS | Encounter Summary ---
Author Organization [facility] and [facility] Address [address] [place] [phone] Care Team Providers Care Ekg Monitor Tech Name Role Phone Jace Blake DO Primary Care Provider [phone] Encounter Details Date Type Department Care Team (Latest Contact Info) Description 04/30/2022 Transcribed Orders [facility] DRAW STATION [facility] [address] [place] [address] Tl Mancera, WALDEMAR [address] [address] Iron deficiency anemia secondary to inadequate dietary iron intake (Primary Dx) Social History Tobacco Use Types [...] Up Congestive Heart Failure Program at [address] [facility] [place] [address] Diana Coppola MD 800 [place] [address] 06/07/2025 10:30 AM EDT Follow Up [facility] at [address] [place] [address] 800 [facility] [place] [address] Silvestre Maldonado MD 800 [place] [phone] 10/05/2025 12:30 PM EST Appointment [facility] - [address] [address] Aparna Chang MD [address] [place] [phone] Hallway, Pft Walk 10/05/2025 1:00 PM EST Appointment [facility] - [address] [address] Aparna Chang MD [address] [place] [phone] 1, Pft Procedure Room 10/05/2025 2:00 PM EST Office Visit [facility] [address] [phone] Aparna Chang MD [address] [place] [phone] documented as of this encounter Visit Diagnoses Diagnosis Iron deficiency anemia secondary to inadequate dietary iron intake- Primary documented in this encounter Additional Health Concerns Assessment Noted Time PHQ-9 Depression Total Score: 0 07/10/20 21 10:52 AM EDT documented as of this encounter Care Teams Ekg Monitor Tech Relationship Specialty Start Date End Date Jace Blake DO [address] [place] [address] PCP - General Family Medicine 08/01/14 documented as of this encounter
--- OUTSIDE RECORDS SUMMARY | 2024-12-19 16:44 | XMS_ITS | Encounter Summary ---
Author Organization [facility] and [facility] Address [address] [place] [phone] Care Team Providers Care Dye Weigher Name Role Phone Hayden Jace Primary Care Provider [phone] Encounter Details Date Type Department Care Team (Late st Contact Info) Description 12/24/2020 Scanned Document [facility] at [address] [place] [phone] Chela Ramírez MD [address] [phone] Social History Tobacco Use Types Packs/Day Years [...] Up Congestive Heart Failure Program at [address] [address] Diana Coppola MD 800 [place] [address] 06/07/2025 10:30 AM EDT Follow Up [facility] at 800 [facility] 800 [facility] [place] [address] Silvestre Maldonado MD 800 [place] [address] 10/05/2025 12:30 PM EST Appointment [facility] - [address] [address] Aparna Chang MD [address] [place] [phone] [facility], Pft Walk 10/05/2025 1:00 PM EST Appointment [facility] - [address] [address] Aparna Chang MD [address] [place] [phone] 1, Pft Procedure Room 10/05/2025 2:00 PM EST Office Visit [facility] [address] [phone] Aparna Chang MD [address] [place] [phone] documented as of this encounter Visit Diagnoses Not on filedocumented in this encounter Additional Health Concerns Assessment Noted Time PHQ-9 Depression Total Score: 0 10/03/20 20 12:10 PM EST documented as of this encounter Care Teams Dye Weigher Relationship Specialty Start Date End Date Jace Blake DO [address] [place] [phone] PCP - General Family Medicine 08/01/14 documented as of this encounter
--- OUTSIDE RECORDS SUMMARY | 2024-12-19 16:44 | XMS_ITS | Encounter Summary ---
Author Organization [facility] and [facility] Address [address] [place] [phone] Care Team Providers Care [employer] Truck Driver Name Role Phone HaydenJace Primary Care Provider [phone] Encounter Details Date Type Department Care Team (Late st Contact Info) Description 04/27/2023 [facility], 4th Floor [facility] [address] [place], [place] [address] Gerardo Vigil MD [address] [place] [phone] Social History Tobacco Use Types Packs/Day Years [...] Up Congestive Heart Failure Program at [address] [place] [address] Diana Coppola MD 800 [place] [address] 06/07/2025 10:30 AM EDT Follow Up [facility] at 800 [facility][Note 2] 800 [facility][Note 2] [place] [address] Silvestre Maldonado MD 800 [place] [address] 10/05/2025 12:30 PM EST Appointment [facility] - [address] [address] Aparna Chang MD [address] [place] [phone] Hallway, Pft Walk 10/05/2025 1:00 PM EST Appointment [facility] - [address] [address] Aparna Chang MD [address] [place] [phone] 1, Pft Procedure Room 10/05/2025 2:00 PM EST Office Visit [facility] [address] [phone] Aparna Chang MD [address] [place] [phone] documented as of this encounter Visit Diagnoses Not on filedocumented in this encounter Additional Health Concerns Assessment Noted Time PHQ-9 Depression Total Score: 0 07/10/20 21 10:52 AM EDT documented as of this encounter Care Teams [employer] Truck Driver Relationship Specialty Start Date End Date Jace Blake DO [address] [place] [address] PCP - General Family Medicine 08/01/14 documented as of this encounter
--- OUTSIDE RECORDS SUMMARY | 2024-12-19 16:44 | XMS_ITS | Encounter Summary ---
Author Organization [facility] Address [address] [place] [address] Care Team Providers Care State Assessed Properties Director Name Role Phone Jace Blake MD Primary Care Provider Provider, Conversion Unavailable Unavaila Andres Topete MD Unavailable [phone] Aki Ross MD Unavailable [phone] Ursula Boo MD Unavailable [phone] Rocio Youssef PA-C Unavailable Emeterio Valencia MD Unavailable Encounter Details Date Type Department Care Team (Late st Contact Info) Description 02/19/2023 Scanned Document [facility] [address] [place] [address] Tl Mancera, WALDEMAR [address] [place] [address] Social History Tobacco Use Types [...] Description 03/02/2025 1:40 PM EDT Office Visit [facility] [place] [address] [place] [address] Nico Bailey MD [address] [place] [address] 03/22/2025 1:30 PM EDT Office Visit [address] [address] Ursula Boo MD [address] [place] [phone] 05/04/2025 10:00 AM EDT Office Visit [facility] [place] [address] [address] Aki Ross MD [address] [place] [address] documented as of this encounter Visit Diagnoses Not on filedocumented in this encounter Care Teams State Assessed Properties Director Relationship Specialty Start Date End Date Jace Blake MD [address] [place] [address] PCP - General Psychiatry, General 05/04/17 Rachid Robles MD 04/27/17 Andres Lakhani MD [address] [place] [address] Hand Filer Balance Wheel Cardiology 07/08/19 Aki Ross MD [address] [place] [address] [place] [address] Primary Hand Filer Balance Wheel Cardiovascular Disease 07/08/19 Ursula Boo MD [address] [place] [address] Gastroenterology 06/07/20 Rocio Youssef PA-C [address] [place] [address] Physician Heavy Duty Custodian Gastroenterology 06/07/20 Emeterio Valencia MD [address] [place] [address] Clinician Pulmonary Medicine 06/20/20 documented as of this encounter
--- OUTSIDE RECORDS SUMMARY | 2024-12-19 16:44 | XMS_ITS | Encounter Summary ---
Author Organization [facility] Address [address] [place] [address] Care Team Providers Care Hydrostatic Tubing Tester Name Role Phone Blake, Gary Primary Care Provider [phone] Encounter Details Date Type Department Care Team (Late st Contact Info) Description 08/05/2021 Orders Only Rheumatology at [address] [place] [address] Meghana Huntre MD [address] [place] [phone] LFT elevation Social History Tobacco Use Types Packs/Day Years [...] Failure Program at [address] [place] [address] Diana Coppola MD 800 [place] [address] 06/07/2025 10:30 AM EDT Follow Up [facility] at 800 [facility] 800 [facility] [place], [place] [address] Silvestre Maldonado MD 800 [place] [address] 10/05/2025 12:30 PM EST Appointment [facility] - [address] [place] [address] Aparna Chang MD [address] [place] [phone] Hallway, Pft Walk 10/05/2025 1:00 PM EST Appointment [facility] - [address] [place] [address] Aparna Chang MD [address] [place] [phone] 1, Pft Procedure Room 10/05/2025 2:00 PM EST Office Visit [facility] [address] [phone] Aparna Chang MD [address] [place] [phone] documented as of this encounter Procedures Procedure Name Priority Date/Time Associated Diagnosis Comments C-REACTIVE PROTEIN (CRP) Routine 08/05/2021 7:56 AM EDT LFT elevation documented in this encounter Results * (ABNORMAL) C-reactive protein (CRP) (08/05/2021 7:56 AM EDT) C-Reactive Protein 3.17(H) <0.30 mg/dL 08/05/2021 8:25 AM EDT Blood Venipuncture / Unknown 08/05/2021 7:56 AM EDT 08/05/2021 8:13 AM EDT us Meghana Hunter MD LAB BLOOD ORDERABLES Final Result Performing Organization Address City/State/[facility] Co de Phone Number [address] [phone] documented in this encounter Visit Diagnoses Diagnosis LFT elevation Other abnormal blood chemistry documented in this encounter Additional Health Concerns Assessment Noted Time PHQ-9 Depression Total Score: 0 07/10/20 21 10:52 AM EDT documented as of this encounter Care Teams Hydrostatic Tubing Tester Relationship Specialty Start Date End Date Jace Blake DO [address] [place] [address] PCP - General Family Medicine 08/01/14 documented as of this encounter
--- OUTSIDE RECORDS SUMMARY | 2024-12-19 16:44 | XMS_ITS | Encounter Summary ---
Author Organization [facility] Address [address] [place] [address] Care Team Providers Care Trust Operations Assistant Name Role Phone Blake, Gary Primary Care Provider [phone] Encounter Details Date Type Department Care Team (Latest Contact Info) Description 08/27/2020 Transcribed Orders [facility] [address] [place] [address] Meghana Hunter MD [address] [place] [phone] Acquired polyneuropathy (HC Code) (Primary Dx); Sicca syndrome (HC Code); Tropical pulmonary alveolitis (HC Code) Social History Tobacco Use Types Packs/Day Years [...] on file Sexual Orientation Not on file COVID-19 Exposure Response Date Recorded In the last month, have you been in contact with someone who was confirmed or suspected to have Coronavirus / COVID-19? No / Unsure 08/27/2020 12:33 PM EDT documented as of this encounter Plan of Treatment Upcoming Encounters Date Type Department Care Team (Late st Contact Info) Description 12/28/2024 10:40 AM EST Follow Up Congestive Heart Failure Program at 800 [facility] 800 [facility] 2nd [place] [address] Diana Coppola MD 800 [place] [phone] 06/07/2025 10:30 AM EDT Follow Up Neuromuscular Medicine at 800 [facility] 800 [facility] Lower [place], [place] [address] Silvestre Maldonado MD [address] [place] [phone] 10/05/2025 12:30 PM EST Appointment [facility] - [address] [address] Aparna Chang MD [address] [place] [phone] Hallway, Pft Walk 10/05/2025 1:00 PM EST Appointment [facility] - [address] [address] Aparna Chang MD [address] [place] [phone] 1, Pft Procedure Room 10/05/2025 2:00 PM EST Office Visit [facility] [address] [phone] Aparna Chang MD [address] [place] [phone] documented as of this encounter Results * Polymyositis/dermatomyositis Ab panel (Q Y) (08/27/2020 2:57 PM EDT) SAE1 (SUMO activating enzyme) Ab Negative Negative 09/13/2020 2:32 PM EDT [facility] NXP2 (Nuclear matrix protein-2) Ab Negative Negative 09/13/2020 2:32 PM EDT [facility] MDA5 (CADM-140) Ab Negative Negative 2019 2:32 PM EDT [facility] TIF-1 gamma (155 kDa) Ab Negative Negative 09/13/2020 2:32 PM EDT [facility] Myositis Interpretive Information See Note 09/13/2020 2:32 PM EDT [facility] Comment: INTERPRETIVE INFORMATION: Dermatomyositis and Polymyositis ?Panel If present, myositis-specific antibodies (MSA) are specific for myositis, and may be useful in establishing diagnosis as well as prognosis. MSAs are generally regarded as mutually exclusive with rare exceptions; the occurrence of two or more MSAs should be carefully evaluated in the context of patient's clinical presentation. Myositis-associated antibodies (MAA) may be found in patients with CTD, including overlap syndromes, and are generally not specific for myositis. The following table will help in identifying the association of any antibodies found as either MSAs or Brooke. Antibody Specificity . . . . . . . . . . . . MSA . . . . MAA Helga-1 (histidyl-tRNA synthetase) Ab, IgG ??. . ??X PL-12 (alanyl-tRNA synthetase) Antibody ??. . ??X PL-7 (threonyl-tRNA synthetase) Antibody . . ??X EJ (glycyl-tRNA synthetase) Antibody . . . . ??X OJ (isoleucyl-tRNA synthetase) Antibody ??. . ??X SRP (Signal Recognition Particle) Ab . . . . ??X Mi-2 (nuclear helicase protein) Antibody . . ??X P155/140 Antibody ??. . . . . . . . . . . . . ??X TIF-1 gamma (155 kDA) Ab . . . . . ??. ??. . . ??X SAE1 (SUMO activating enzyme) Ab . . . . . . ??X MDA5 (CADM-140) Ab . . . . . . . . . . . . . ??X NXP2 (Nuclear matrix protein-2) Ab . . . . . ??X Test developed and characteristics determined by [employer]. See Compliance Statement D: [employer]/ Helga-1 (Histidyl-tRNA Synthetase) Ab, IgG 0 0 - 40 AU/mL 09/13/2020 2:32 PM EDT [facility] Comment: INTERPRETIVE INFORMATION: ??Helga-1 Antibody, IgG ??29 AU/mL or less.........Negative ??30-40 AU/mL..............Equivocal ??41 AU/mL or greater......Positive Presence of Helga-1 (antihistidyl transfer RNA [t-RNA] synthetase) antibody is associated with polymyositis and may also be seen in patients with dermatomyositis. Helga-1 antibody is associated with pulmonary involvement (interstitial lung disease), Raynaud phenomenon, arthritis, and fire control mechanic's hands (implicated in antisynthetase syndrome). PL-12 (alanyl-tRNA synthetase) Antibody Negative Negative 09/13/2020 2:32 PM EDT [facility] PL-7 (threonyl-tRNA synthetase) Antibody Negative Negative 09/13/2020 2:32 PM EDT [facility] OJ (isoleucyl-tRNA synthetase) Antibody Negative Negative 09/13/2020 2:32 PM EDT [facility] EJ (glycyl-tRNA synthetase) Antibody Negative Negative 09/13/2020 2:32 PM EDT [facility] SRP (Signal Recognition Particle) Ab Negative Negative 09/13/2020 2:32 PM EDT [facility] Mi-2 (nuclear helicase protein) Antibody Negative Negative 09/13/2020 2:32 PM EDT [facility] P155/140 Antibody Negative Negative 020 2:32 PM EDT [facility] Comment: Performed by [facility], [address] [place] [address],[place] [address] [email or web address], Laura Coleman MD, Lab. 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
--- OUTSIDE RECORDS SUMMARY | 2024-12-19 16:44 | XMS_ITS | Encounter Summary ---
Author Organization [facility] Address [address] [place] [address] Care Team Providers Care Laundry Room Attendant Name Role Phone HaydenJace Primary Care Provider [phone] Encounter Details Date Type Department Care Team (Latest Contact Info) Description 09/17/2020 Evaluation Electrophysiology & Cardiac Arrhythmia Program [address] [place] [address] Jessica Chirinos RN Pacemaker (Primary Dx) Social History Tobacco Use Types [...] have Coronavirus / COVID-19? No / Unsure 09/12/2020 7:18 AM EDT documented as of this encounter Plan of Treatment Upcoming Encounters Date Type Department Care Team (Late st Contact Info) Description 12/28/2024 10:40 AM EST Follow Up Congestive Heart Failure Program at [address] [place] [address] Diana Coppola MD 800 [facility] [place] [phone] 06/07/2025 10:30 AM EDT Follow Up [facility] Neurom[facility] at [address] [facility] [address] [facility] [place] [address] Silvestre Maldonado MD 800 [facility] [phone] 10/05/2025 12:30 PM EST Appointment [facility] - [address] [address] Aparna Chang MD [address] [place] [phone] Hallway, Pft Walk 10/05/2025 1:00 PM EST Appointment [facility] - [address] [address] Aparna Chang MD [address] [place] [phone] 1, Pft Procedure Room 10/05/2025 2:00 PM EST Office Visit [facility] [address] [address] Aparna Chang MD [address] [place] [phone] documented as of this encounter Visit Diagnoses Diagnosis Pacemaker- Primary Cardiac pacemaker in situ documented in this encounter Care Teams Laundry Room Attendant Relationship Specialty Start Date End Date Jace Blake DO [address] [place] [address] PCP - General Family Medicine 08/01/14 documented as of this encounter
--- OUTSIDE RECORDS SUMMARY | 2024-12-19 16:44 | XMS_ITS | Encounter Summary ---
Author Organization [facility] Address [address] [place] [address] Care Team Providers Care Executive Officer Name Role Phone Jace Blake MD Primary Care Provider [phone] Provider, Rachid GARCIA Unavailable Unavaila Andres Topete MD Unavailable [phone] Aki Ross MD Unavailable [phone] Ursula Boo MD Unavailable Rocio Youssef PA-C Unavailable Emeterio Valencia MD Unavailable Encounter Details Date Type Department Care Team (Late st Contact Info) Description 03/12/2023 Scanned Document [facility] [address] [place] [phone] Ursula Boo MD [address] [place], [place] [address] Social History Tobacco Use Types Packs/Day Years [...] 1:40 PM EDT Office Visit [facility] Dermatology [address] [address] Nico Bailey MD [address] [place] [address] 03/22/2025 1:30 PM EDT Office Visit [address] [address] Ursula Boo MD [address] [address] 05/04/2025 10:00 AM EDT Office Visit [facility] [place] [address] [address] Aki Ross MD [address] [place] [address] documented as of this encounter Visit Diagnoses Not on filedocumented in this encounter Care Teams Executive Officer Relationship Specialty Start Date End Date Jace Blake MD [address] [place] [address] PCP - General Psychiatry, General 05/04/17 Rachid Robles MD 04/27/17 Andres Lakhani MD [address] [place] [address] Typing Office Worker Cardiology 07/08/19 Aki Ross MD [address] [place] [address] [place] [address] Primary Typing Office Worker Cardiovascular Disease 07/08/19 Ursula Boo MD [address] [place] [address] Gastroenterology 06/07/20 Rocio Youssef PA-C [address] [place] [address] Physician Baker Operator Automatic Gastroenterology 06/07/20 Emeterio Valencia MD [address] [place] [address] Clinician Pulmonary Medicine 06/20/20 documented as of this encounter
--- OUTSIDE RECORDS SUMMARY | 2024-12-19 16:44 | XMS_ITS | Encounter Summary ---
Author Organization [facility] Address [address] [place] [address] Care Team Providers Care Content Checker Name Role Phone Blake, Gary Primary Care Provider [phone] Encounter Details Date Type Department Care Team (Late st Contact Info) Description 08/23/2020 Abstract [facility] 7[address] [facility][Note 2], 2nd [facility], [address] [place], [place] [address] Aparna Chang MD [address] [place] [phone] Social History Tobacco Use Types Packs/Day [...] Congestive Heart Failure Program at [address] [place], [place] [address] Diana Coppola MD 800 [place] [phone] 06/07/2025 10:30 AM EDT Follow Up [facility] Neuromuscular Medicine at 800 [facility][Note 2] 800 [facility][Note 2] Lower [facility] [place] [address] Silvestre Maldonado MD 800 [place] [phone] 10/05/2025 12:30 PM EST Appointment [facility] - [address] [address] Aparna Chang MD [address] [place] [phone] Hallway, Pft Walk 10/05/2025 1:00 PM EST Appointment [facility] - [address] [address] Aparna Chang MD [address] [place] [phone] 1, Pft Procedure Room 10/05/2025 2:00 PM EST Office Visit [facility] [address] [address] Aparna Chang MD [address] [place] [phone] documented as of this encounter Visit Diagnoses Not on filedocumented in this encounter Care Teams Content Checker Relationship Specialty Start Date End Date Jace Blake DO [address] [place] [address] PCP - General Family Medicine 08/01/14 documented as of this encounter
--- OUTSIDE RECORDS SUMMARY | 2024-12-19 16:44 | XMS_ITS | Encounter Summary ---
Author Organization [facility] Address [address] [place] [address] Care Team Providers Care Electronics Detail Draftsperson Name Role Phone Jace Blake DO Primary Care Provider [phone] Encounter Details Date Type Department Care Team (Late st Contact Info) Description 06/15/2023 Abstract Congestive Heart Failure Program at [address] [place], [place] [address] Diana Coppola MD [address] [place] [phone] Social History Tobacco Use Types Packs/Day Years Used Date Smoking Tobacco: Former Cigarettes 1 40 0 07/14/1972 - 07/14/2012 Smokeless Tobacco: Never Alcohol Use Standard Drinks/Week Comments Yes 0 (1 standard drink = 0.6 oz pur e alcohol) soc PHQ-2 Answer Date Recorded PHQ-2 Total Score 0 06/17/2023 Interpersonal Safety Answer Date Record ed Is there anyone in your life that is hurting or threatening you in anyway? Not on file 06/17/2023 Physical Indicators of Abuse No evidence of phys ical abuse 06/17/2023 Comments Unknown Sex and Gender Information Value Date Recorded Sex Assigned at Not on file Legal Sex Female 9:43 AM EST Gender Identity Not on file Sexual Orientation Not on file documented as of this encounter Plan of Treatment Upcoming Encounters Date Type Department Care Team (Late st Contact Info) Description 12/28/2024 10:40 AM EST Follow Up Congestive Heart Failure Program at [address] [place] [address] 800 [facility] 2nd [place] [address] Diana Coppola MD [address] [place] [phone] 06/07/2025 10:30 AM EDT Follow Up Neuromuscular Medicine at 800 [facility] 800 [facility] Lower [place], [place] [address] Silvestre Maldonado MD [address] [place] [address], [place] [phone] 10/05/2025 12:30 PM EST Appointment [facility] - [address] [address] Aparna Chang MD [address] [place] [phone] Hallway, Pft Walk 10/05/2025 1:00 PM EST Appointment [facility] - [address] [address] Aparna Chang MD [address] [place] [phone] 1, Pft Procedure Room 10/05/2025 2:00 PM EST Office Visit [facility] [address] [phone] Aparna Chang MD [address] [place] [phone] documented as of this encounter Visit Diagnoses Not on filedocumented in this encounter Additional Health Concerns Assessment Noted Time PHQ-9 Depression Total Score: 0 07/10/20 10:52 AM EDT documented as of this encounter Care Teams Electronics Detail Draftsperson Relationship Specialty Start Date End Date Jace Blake DO [address] [place] [address] PCP - General Family Medicine 08/01/14 documented as of this encounter
--- OUTSIDE RECORDS SUMMARY | 2024-12-19 16:44 | XMS_ITS | Encounter Summary ---
Author Organization [facility] Address [address] [place] [address] Care Team Providers Care Patient Services Representative Name Role Phone Jace Blake DO Primary Care Provider Encounter Details Date Type Department Care Team (Late st Contact Info) Description 03/27/2021 Orders Only Neurology [address] [place] [address] Ambrosio Wallace MD PhD [address] [place] [phone] Idiopathic peripheral neuropathy (Primary Dx) Social [...] Up Congestive Heart Failure Program at [address] [address] Diana Coppola MD 800 [place] [address] 06/07/2025 10:30 AM EDT Follow Up [facility] Neuromuscular Medicine at 800 [facility] 800 [facility] [place] [address] Silvestre Maldonado MD 800 [place] [address] 10/05/2025 12:30 PM EST Appointment P[facility] LAB[facility] - [address] [address] Aparna Chang MD [address] [place] [phone] Hallway, Pft Walk 10/05/2025 1:00 PM EST Appointment P[facility] - [address] [address] Aparna Chang MD [address] [place] [phone] 1, Pft Procedure Room 10/05/2025 2:00 PM EST Office Visit [facility] [address] [phone] Aparna Chang MD [address] [place] [phone] documented as of this encounter Visit Diagnoses Diagnosis Idiopathic peripheral neuropathy- Primary Unspecified hereditary and idiopathic peripheral neuropathy documented in this encounter Additional Health Concerns Assessment Noted Time PHQ-9 Depression Total Score: 0 10/03/20 20 12:10 PM EST documented as of this encounter Care Teams Patient Services Representative Relationship Specialty Start Date End Date Jace Blake DO [address] [place] [address] PCP - General Family Medicine 08/01/14 documented as of this encounter
--- OUTSIDE RECORDS SUMMARY | 2024-12-19 16:44 | XMS_ITS | Encounter Summary ---
Author Organization [facility] Address [address] [place] [phone] Care Team Providers Care Outsole Compressor Name Role Phone HaydenJace Primary Care Provider Encounter Details Date Type Department Care Team (Late st Contact Info) Description 03/28/2021 Scanned Document INTERFACE DEFAULT [address] [place] [address] System, Provider Not In Social History Tobacco [...] Up Congestive Heart Failure Program at [address] [place] [address] Diana Coppola MD [address] [place] [phone] 06/07/2025 10:30 AM EDT Follow Up [facility] Neuromuscular Medicine at 800 [facility] 800 [facility] [place] [address] Silvestre Maldonado MD 800 [place] [phone] 10/05/2025 12:30 PM EST Appointment PUL[facility] LAB[facility]AT[facility] - [address] [place] [address] Aparna Chang MD [address] [place] [phone] Hallway, Pft Walk 10/05/2025 1:00 PM EST Appointment P[facility] - [address] [address] Aparna Chang MD [address] [place] [phone] 1, Pft Procedure Room 10/05/2025 2:00 PM EST Office Visit [facility] [address] [address] Aparna Chang MD [address] [place] [phone] documented as of this encounter Visit Diagnoses Not on filedocumented in this encounter Additional Health Concerns Assessment Noted Time PHQ-9 Depression Total Score: 0 10/03/20 20 12:10 PM EST documented as of this encounter Care Teams Outsole Compressor Relationship Specialty Start Date End Date Jace Blake DO [address] [place] [address] PCP - General Family Medicine 08/01/14 documented as of this encounter
--- OUTSIDE RECORDS SUMMARY | 2024-12-19 16:44 | XMS_ITS | Encounter Summary ---
Author Organization Formerly [facility] Address [address] [place] [address] Care Team Providers Care Lard Tub Washer Name Role Phone Jace Blake MD Primary Care Provider [phone] Provider, Rachid GARCIA Unavailable Unavaila Andres Topete MD Unavailable [phone] Aki Ross MD Unavailable [phone] Ursula Boo MD Unavailable [phone] Rocio Youssef PA-C Unavailable Emeterio Valencia MD Unavailable Encounter Details Date Type Department Care Team (Late st Contact Info) Description 04/15/2023 Scanned Document [facility] [place] [address] [place] [phone] Provider, External, [address] [place] [address] Social History Tobacco Use Types Packs/Day Years [...] Description 03/02/2025 1:40 PM EDT Office Visit [facility] [place] [place] [address] Nico Bailey MD [address] [place] [address] 03/22/2025 1:30 PM EDT Office Visit [address] [phone] Ursula Boo MD [address] [address] 05/04/2025 10:00 AM EDT Office Visit [facility] [place] [address] [address] Aki Ross MD [address] [place] [address] documented as of this encounter Visit Diagnoses Not on filedocumented in this encounter Care Teams Lard Tub Washer Relationship Specialty Start Date End Date Jace Blake MD [address] [place] [address] PCP - General Psychiatry, General 05/04/17 Rachid Robles MD 04/27/17 Andres Lakhani MD [address] [place] [address] Mental Health Case Manager Cardiology 07/08/19 Aki Ross MD [address] [place] [address] Primary Mental Health Case Manager Cardiovascular Disease 07/08/19 Ursula Boo MD [address] [place] [address] Gastroenterology 06/07/20 Rocio Youssef PA-C [address] [place] [address] Physician Hr Representative Gastroenterology 06/07/20 Emeterio Valencia MD [address] [place] [address] Clinician Pulmonary Medicine 06/20/20 documented as of this encounter
--- OUTSIDE RECORDS SUMMARY | 2024-12-19 16:45 | XMS_ITS | Encounter Summary ---
Author Organization [facility] and [facility] Address [address] [place] [phone] Care Team Providers Care Tank Builder Helper Name Role Phone BlakeJace Primary Care Provider [phone] Encounter Details Date Type Department Care Team (Late Contact Info) Description 06/06/2020 Scanned Document [facility] Health Information Management [address] [place] [address] External, Provider Social History Tobacco Use Types [...] have Coronavirus / COVID-19? No / Unsure 06/07/2020 9:52 PM EDT documented as of this encounter Plan of Treatment Upcoming Encounters Date Type Department Care Team (Late Contact Info) Description 12/28/2024 10:40 AM EST Follow Up Congestive Heart Failure Program at [address] [place] [address] 2[address] [place] [address] Diana Coppola MD 800 [place] [phone] 06/07/2025 10:30 AM EDT Follow Up [facility] at 800 [facility] 800 [facility] [place] [address] Silvestre Maldonado MD 800 [place] [address] 10/05/2025 12:30 PM EST Appointment [facility] - [address] [address] Aparna Chang MD [address] [place] [phone] [facility], Pft Walk 10/05/2025 1:00 PM EST Appointment [facility] - [address] [address] Aparna Chang MD [address] [place] [phone] 1, Pft Procedure Room 10/05/2025 2:00 PM EST Office Visit [facility] [address] [phone] Aparna Chang MD [address] [place] [phone] documented as of this encounter Procedures Procedure Name Priority Date/Time Associated Diagnosis Comments LAB SCAN Routine 06/06/2020 documented in this encounter Results * Lab Scan (06/06/2020) us Provider External LAB BLOOD ORDERABLES Final Res ult documented in this encounter Visit Diagnoses Not on filedocumented in this encounter Care Teams Tank Builder Helper Relationship Specialty Start Date End Date Jace Blake DO [address] [place] [address] PCP - General Family Medicine 08/01/14 documented as of this encounter
--- OUTSIDE RECORDS SUMMARY | 2024-12-19 16:45 | XMS_ITS | Encounter Summary ---
Author Organization [facility] and [facility] Address [address] [place] [phone] Care Team Providers Care Legal Process Specialist Name Role Phone Blake, Gary Primary Care Provider [phone] Encounter Details Date Type Department Care Team (Late st Contact Info) Description 04/30/2020 Scanned Document [facility] Health Information Management [address] [place] [phone] External, Provider Social History Tobacco Use Types [...] Up Congestive Heart Failure Program at [address] [place] [address] Diana Coppola MD [address] [place] [phone] 06/07/2025 10:30 AM EDT Follow Up Neuromuscular Medicine at 800 [facility] 800 [facility] [place] [address] Silvestre Maldonado MD 800 [place] [phone] 10/05/2025 12:30 PM EST Appointment [facility] - [address] [address] Aparna Chang MD [address] [place] [phone] [facility], Pft Walk 10/05/2025 1:00 PM EST Appointment [facility] - [address] [address] Aparna Chang MD [address] [place] [phone] 1, Pft Procedure Room 10/05/2025 2:00 PM EST Office Visit [facility] [address] [phone] Aparna Chang MD [address] [place] [phone] documented as of this encounter Procedures Procedure Name Priority Date/Time Associated Diagnosis Comments LAB SCAN Routine 04/30/2020 documented in this encounter Results * Lab Scan (04/30/2020) us Provider External LAB BLOOD ORDERABLES Final Res ult documented in this encounter Visit Diagnoses Not on filedocumented in this encounter Care Teams Legal Process Specialist Relationship Specialty Start Date End Date Jace Blake DO [address] [place] [address] PCP - General Family Medicine 08/01/14 documented as of this encounter
--- OUTSIDE RECORDS SUMMARY | 2024-12-19 16:45 | XMS_ITS | Encounter Summary ---
Author Organization [facility] and [facility] Address [address] [place] [address] Care Team Providers Care Teacher Of The Handicapped Name Role Phone Jace Blake DO Primary Care Provider [phone] Encounter Details Date Type Department Care Team (Late st Contact Info) Description 06/19/2023 Scanned Document Congestive Heart Failure Program at [address] 2nd [place], [place] [address] Iram Navarro, WALDEMAR [address] [place] [phone] Social History Tobacco Use Types Packs/Day Years [...] Follow Up Congestive Heart Failure Program at [address] [place] [address] 800 [place] [facility] 2nd [place] [address] Diana Coppola MD [address] [place] [phone] 06/07/2025 10:30 AM EDT Follow Up Neuromuscular Medicine at 800 [facility] 800 [facility] [place] [address] Silvestre Maldonado MD [address] [place] [phone] 10/05/2025 12:30 PM EST Appointment [facility] - [address] [address] Aparna Chang MD [address] [place] [phone] [facility], Pft Walk 10/05/2025 1:00 PM EST Appointment [facility] - [address] [address] Aparna Chang MD [address] [place] [phone] 1, Pft Procedure Room 10/05/2025 2:00 PM EST Office Visit [facility] [address] [phone] Aparna Chang MD [address] [place] [phone] documented as of this encounter Visit Diagnoses Not on filedocumented in this encounter Additional Health Concerns Assessment Noted Time PHQ-9 Depression Total Score: 0 06/17/20 23 11:05 AM EDT documented as of this encounter Care Teams Teacher Of The Handicapped Relationship Specialty Start Date End Date Jace Blake DO [address] [place] [address] PCP - General Family Medicine 08/01/14 documented as of this encounter
--- OUTSIDE RECORDS SUMMARY | 2024-12-19 16:45 | XMS_ITS | Encounter Summary ---
Author Organization [facility] and [facility] Address [address] [place] [phone] Care Team Providers Care Griddle Cook Name Role Phone BlakeJace Primary Care Provider [phone] Encounter Details Date Type Department Care Team (Late Contact Info) Description 08/07/2020 Scanned Document [facility] Health Information Management [address] [place] [phone] External, Provider Social History Tobacco Use Types [...] have Coronavirus / COVID-19? No / Unsure 07/16/2020 7:34 AM EDT documented as of this encounter Plan of Treatment Upcoming Encounters Date Type Department Care Team (Late Contact Info) Description 12/28/2024 10:40 AM EST Follow Up Congestive Heart Failure Program at [address] [place] [address] 2nd [place] [address] Diana Coppola MD 800 [place] [phone] 06/07/2025 10:30 AM EDT Follow Up Neuromuscular Medicine at 800 [facility] 800 [facility] [place] [address] Silvestre Maldonado MD 800 [place] [address] 10/05/2025 12:30 PM EST Appointment [facility] - [address] [address] Aparna Chang MD [address] [place] [phone] [facility], Pft Walk 10/05/2025 1:00 PM EST Appointment [facility] - [address] [address] Aparna Chang MD [address] [place] [phone] 1, Pft Procedure Room 10/05/2025 2:00 PM EST Office Visit [facility] [address] [phone] Aparna Chang MD [address] [place] [phone] documented as of this encounter Procedures Procedure Name Priority Date/Time Associated Diagnosis Comments LAB SCAN Routine 08/07/2020 documented in this encounter Results * Lab Scan (08/07/2020) us Provider External LAB BLOOD ORDERABLES Final Res ult documented in this encounter Visit Diagnoses Not on filedocumented in this encounter Care Teams Griddle Cook Relationship Specialty Start Date End Date Jace Blake DO [address] [place] [address] PCP - General Family Medicine 08/01/14 documented as of this encounter
--- OUTSIDE RECORDS SUMMARY | 2024-12-19 16:45 | XMS_ITS | Encounter Summary ---
Author Organization [facility] and [facility] Address [address] [place] [phone] Care Team Providers Care Roller Coaster Engineer Name Role Phone Jace Blake DO Primary Care Provider [phone] Reason for Visit * Reason Comments Medication Refill Encounter Details Date Type Department Care Team (Late st Contact Info) Description 09/27/2023 Refill [facility] at [address] [place] [address] Pao Steele APRN [address] [phone] Medication Refill Social History Tobacco Use Types Packs/Day Years Used Date Smoking Tobacco: Former Cigarettes 1 40 0 07/14/1972 - 07/14/2012 Smokeless Tobacco: Never Alcohol Use Standard Drinks/Week Comments Yes 0 (1 standard drink = 0.6 oz pur e alcohol) soc PHQ-2 Answer Date Recorded PHQ-2 Total Score 0 07/01/2023 Interpersonal Safety Answer Date Record ed Is there anyone in your life that is hurting or threatening you in anyway? Not on file 06/17/2023 Physical Indicators of Abuse No evidence of phys ical abuse 06/17/2023 Comments No Sex and Gender Information Value Date Recorded Sex Assigned at Not on file Legal Sex Female 9:43 AM EST Gender Identity Not on file Sexual Orientation Not on file documented as of this encounter Plan of Treatment Upcoming Encounters Date Type Department Care Team (Late st Contact Info) Description 12/28/2024 10:40 AM EST Follow Up Congestive Heart Failure Program at [address] [place] [address] 800 [facility] 2nd [place] [address] Diana Coppola MD [address] [place] [phone] 06/07/2025 10:30 AM EDT Follow Up Neuromuscular Medicine at [address] [place] [address] 800 [facility] Lower [place], [place] [address] Silvestre Maldonado MD [address] [place] [phone] 10/05/2025 12:30 PM EST Appointment [facility] - [address] [address] Aparna Chang MD [address] [place] [phone] [facility], Pft Walk 10/05/2025 1:00 PM EST Appointment [facility] - [address] [address] Aparna Chang MD [address] [place] [phone] 1, Pft Procedure Room 10/05/2025 2:00 PM EST Office Visit [facility] [address] [address] Aparna Chang MD [address] [place] [phone] documented as of this encounter Visit Diagnoses Diagnosis Chronic systolic heart failure (HC Code) (HC CODE) (HC Code) Chronic systolic heart failure documented in this encounter Additional Health Concerns Assessment Noted Time PHQ-9 Depression Total Score: 0 07/01/20 23 10:25 AM EDT documented as of this encounter Care Teams Roller Coaster Engineer Relationship Specialty Start Date End Date Jace Blake DO [address] [place] [address] PCP - General Family Medicine 08/01/14 documented as of this encounter
--- OUTSIDE RECORDS SUMMARY | 2024-12-19 16:45 | XMS_ITS | Encounter Summary ---
Author Organization [facility] Address [address] [place] [phone] Care Team Providers Care Police Magistrate Name Role Phone BlakeJace Primary Care Provider [phone] Encounter Details Date Type Department Care Team (Late Contact Info) Description 05/18/2020 Scanned Document [facility] Health Information Management [address] [place] [phone] External, Provider Social History Tobacco Use Types [...] have Coronavirus / COVID-19? No / Unsure 05/16/2020 2:03 PM EDT documented as of this encounter Plan of Treatment Upcoming Encounters Date Type Department Care Team (Late Contact Info) Description 12/28/2024 10:40 AM EST Follow Up [facility] at [address] [place] [address] [address] [place] [address] Diana Coppola MD 800 [place] [phone] 06/07/2025 10:30 AM EDT Follow Up [facility] at 800 [facility] 800 [facility] [place] [address] Silvestre Maldonado MD 800 [place] [phone] 10/05/2025 12:30 PM EST Appointment [facility] - [address] [address] Aparna Chang MD [address] [place] [phone] [facility], Pft Walk 10/05/2025 1:00 PM EST Appointment [facility] - [address] [address] Aparna Chang MD [address] [place] [phone] 1, Pft Procedure Room 10/05/2025 2:00 PM EST Office Visit [facility] [address] [phone] Aparna Chang MD [address] [place] [phone] documented as of this encounter Procedures Procedure Name Priority Date/Time Associated Diagnosis Comments LAB SCAN Routine 05/18/2020 documented in this encounter Results * Lab Scan (05/18/2020) us Provider External LAB BLOOD ORDERABLES Final Res ult documented in this encounter Visit Diagnoses Not on filedocumented in this encounter Care Teams Police Magistrate Relationship Specialty Start Date End Date Jace Blake DO [address] [place] [address] PCP - General Family Medicine 08/01/14 documented as of this encounter
--- OUTSIDE RECORDS SUMMARY | 2024-12-19 16:45 | XMS_ITS | Data Portability ---
Author Organization [facility] Medical Address [address] [place] [address] Care Team Providers Care Senior Cobol Developer Name Role Phone ROSIE MASSEY Primary Care Provider [phone] [facility] General Surgeon NELY BENTLEY Facsimile Machine Operator TEE URBANO Neurologist TAMANNA BELTRAN Front Loader Residential Driver MAHENDRA RODRÍGUEZ Recovery Operator Helper Assessment Encounter Date Assessment Date Assessment LastModified by Organization Details LastModified Time 03/16/2020 03/16/2020 This telemedicin e visit with video was accomplished today at either patient preference or out of medical necessity due to community issues. Due to the nature of telemedicine the ability to do physical assessment was limited to what can be accomplished by patient directed video recording based on instruction. Those limits are understood by the patient and myself. Impression is based on history, available information and physical findings accomplished with video assist. Chronic disease/problem list/medication list reviewed and updated where indicated. Discussed diagnosis, plan including risks, benefits and options of treatment. Advised to call for new, worsening or persistent symptoms. Level of patient risk was of straight forward complexity due to the documented nature of presentation, the information assessment required and the nature of the development of an evaluation and treatment plan as documented. PMH, FHx, SHx, Surgical Hx, Quality Management review carried out and addressed as documented today as part of this visit. Medication list was reviewed and adjusted as indicated. Medication requiring a refill was addressed. Risk and benefits of any new medications were discussed and all questions answered. Potential drug interactions were considered. Patient is encouraged to visit and use our patient communicator portal as a general health care informational tool, as a means of reviewing all visit testing, patient specific information and visit summary recommendations generated as part of all patient visits, as a secure means of communication with our office and the doctor for any purpose any time and as a great means to get a copy of patient specific medical records as needed anytime and anywhere. [email or web address] Not available 03/16/2020 12:17:49 12/11/2020 12/11/2020 Patient presente d to office today for their Medicare Annual Wellness Visit. Education was provided on healthy nutrition, including a diet rich in fruits and vegetables, minimizing simple carbohydrates, salt, and saturated fats. Encouraged regular cardiovascular exercise such as walking at least 30 minutes daily, 5 times per week. Emphasized preventive health measures and educated pt on fall prevention and community-based lifestyle interventions to help reduce health risks and promote healthy living. [email or web address] Not available 12/30/2020 10:05:24 02/15/2021 02/15/2021 MDM MODERATE Problems and complexity 1 undiagnosed new problem with uncertain prognosis Data reviewed Cat 1-3 ofOrdering of each unique test Cat2 Cat 3 Risk of complications MODERATE [email or web address] Not available 02/23/2021 09:48:26 09/03/2021 09/03/2021 MDM MODERATE Problems and complexity 1 undiagnosed new problem with uncertain prognosis Data reviewed Cat 1-3 ofReview of results of unique test Cat2 Independent interpretation of a test performed by another physician Cat 3 Risk of complications MODERATE [email or web address] Not available 09/03/2021 23:25:57 Plan of Treatment Reminders Order Date Submit Date Provider Last Modified By Organization Details Last Modified Time Details Appointments None recorded. Lab HbA1c (hemoglob in A1c), blood 2019 [facility] (Outpatient Lab), [address] [place], [address], 0 11:22:16 CBC w/ auto diff 2019 020 [facility] (Outpatient Lab), [address] [place], [address], 0 11:22:15 iron + TIBC + ferritin, serum 2019 [facility] ([facility]patient [facility]), [address] [place], [address], 0 12:06:52 vitamin B12, serum 2019 [facility] (Outpatient [facility]), [address] [place], [address], 0 11:22:16 retic count, blood 2019 [facility] (Outpatient Lab), [address] [facility], [place], [address], 0 11:22:16 vitamin B12 + folate, serum or blood 2019 [facility] (Outpatient [facility]), [address] [place], [address], 0 11:22:17 spep + immunoglo bulins, serum 2019 [facility] ([facility]patient [facility]), [address] [place], [address], 0 11:22:16 lipid panel, serum 2019 [facility] ([facility] [address] [place], [address], 0 11:22:17 TSH, serum or plasma 2019 [facility] ([facility]patient [facility] [address] [place], [address], 0 11:22:16 NICANOR (antinucl ear antibodie s) screen, serum 2019 [facility] ([facility]patient [facility]), [address] [place], [address], 0 13:04:58 C-reactiv e protein, quantitat tavares, serum or plasma 2019 [facility] ([facility]patient [facility]), [address] [place], [address], 0 11:22:16 dsDNA Ab, serum 2019 [facility] ([facility]patient [facility]), [address] [place], [address], 0 04:08:04 erythrocy te sedimenta tion rate by westergre n method 2019 [facility] (Outpatient Lab), [address] [place], [address], 0 11:22:16 C3 + C4 (compleme nt), serum 2019 [facility] ([facility]patient [facility] [address] [place], [address], 0 11:22:16 rf (rheumato id factor) + anti-ccp abs, serum 2019 [facility] ([facility]patient [facility]), [address] [place], [address], 0 11:22:16 sjogren antibody panel, serum 2019 [facility] ([facility]patient [facility]), [address] [place], [address], 0 13:04:58 urinalysi s, complete 2019 [facility] ([facility]patient [facility] [address] [place], [address], 0 11:22:16 gamma-glu tamyl transfera se (ggt), serum 2019 [facility] ([facility]patient [facility]), [address] [place], [address], 0 11:22:15 CMP, serum or plasma 2019 [facility] ([facility]patient [facility]), [address] [facility], [place], [address], 0 11:22:16 lipase, serum or plasma 2019 [facility] ([facility]patient [facility]), [address] [facility], [place], [address], 0 11:22:17 afp (alpha-fe toprotein ) tumor marker, serum or plasma 2019 [facility] ([facility]patient [facility]), [address] [facility], [place], [address], 0 11:22:17 ferritin, serum or plasma 2019 020 [facility] ([facility]patient [facility]), [address] [facility], [place], [address], 0 11:22:15 amylase, serum or plasma 2019 020 [facility] ([facility]patient [facility]), [address] [facility], [place], [address], 0 11:22:16 hepatitis panel (A+B+C), acute, serum 2019 [facility] ([facility]patient [facility]), [address] [facility], [place], [address], 0 11:22:16 Referral gastroent erologist referral 2019 ASHLEY Sahu MD ([facility]), [facility] [address], [place], [address], 0 13:02:[address] referral 2019 ASHLEY Urbano MD ([facility]), [address] [facility], [facility] , [place], [address], 1 13:55:31 Procedures None recorded. Surgeries None recorded. Imaging US, duplex, venous, upper extremity , unilatera l - KORIN , please, hx of blood clots ( autoimmun e disorder) 2020 [facility], [address] [facility], [place], [address], 1 09:40:08 Medication Orders clonazepa m 0.5 mg tablet 2019 [facility], [address] [facility],, [place], [address], 0 09:25:27 gabapenti n 800 mg tablet 2019 INTERFACE [facility], [facility] [place], [address], 0 09:23:57 gabapenti n 100 mg capsule 2019 INTERFACE [facility], [facility], [place], [address], 0 11:00:57 ondansetr on HCl 4 mg tablet 2020 norma [id number], [address] [place], [place], [address], 1 23:10:34 Patient TargetsNo targets recorded. Patient Instructions Encounter Date Encounter Id Patient Instructions Last Modified By Organization Details Last Modified Time 12/11/2020 [id number] Discussed and explained advance directives such as standard forms to the {{patient* caregi karla patient and caregiver}}. Face to face discussion lasted for a duration of 10 minutes. norma Not available 12/30/2020 10:08:10 02/15/2021 [id number] Extensive number of diagnosis or management options are considered above. Extensive amount of complex data reviewed. High risk of complications and /or morbility and mortality are associated with the differential diagnosis considerations. There may be uncertain outcome and increased probability of prolonged functional impairment with some of those differential diagnosis. Medical data review : 1 Data reviewed include clinical labs,radiology,me dical tests 2. Obtaining and reviewing old medical records 3. Obtaining case history from another source. Patient education was provided including the following-working diagnosis and differential diagnosis and review of possible therapeutic options. Wong patient was able to learn and there were no barries to learning identified. norma Not available 02/23/2021 09:48:57 09/03/2021 [id number] The following topics were discussed by me during the visit: - expected course of the disease - lab results and schedule future lab studies reviewed with patient -orders and follow up as documented in [place] -call back if symptoms worsen or fail to improve or any new symptoms occur [email or web address] Not available 09/03/2021 23:26:29 Reason for Referral Neurologist Referral for Elba ropathy Referring Physician: Jeovanny Ramírez, Internal Medicine, Encounter Date: 10/25/2020 Rn Telephonic Referral for Liver function tests outside reference range Referring Physician: Jeovanny Ramírez, Internal Medicine, Encounter Date: 10/25/2020 Results Created Date Observation Date Name Description Value Unit Range Abnormal Flag Note LastModifiedBy Organization Detail LastModifiedTime 11/07/20 20 11/06/2020 CT, orbit / sella / poste rior fossa / ear, w/o contr ast Workst ation: [id number] EXAM: UNENHA NCED CT TEMPOR AL BONES INDICA TION: Asymme tric hearin g loss right. COMPAR SAIMA: None. TECHNI QUE: Comput ed tomogr aphic imagin g of the tempor al bones perfor med withou t nonion ic contra st with axial and ayala l imagin g. All CT scans are perfor med using radiat ion dose reduct ion techni ques. Techni maria del carmen factor s are evalua radha and adjust ed to ensure approp riate modera tion of exposu re. Automa radha dose manage ment techno logy is applie d to adjust the radiat ion dose to minimi ze exposu re while achiev ing a diagno stic-q uality image. FINDIN GS: Right: The tympan ic membra ne does not appear thicke lilliam. The middle ear cavity and mastoi ds appear normal ly pneuma tized. Ossicu lar chain appear s intact . Labyri nthine struct ures appear normal . Left: The tympan ic membra ne does not appear thicke lilliam. The middle ear cavity appear normal ly pneuma tized. There is opacif icatio n of a few inferi or left mastoi d air cells. Ossicu lar chain appear s intact . Labyri nthine struct ures appear normal . IMPRES EDWIN: 1. Normal right tempor al bone. 2. Mild left mastoi d mucosa l thicke jorge withou t acute or coales cent mastoi ditis, and with the left appear ing otherw ise normal . This encoun ter occurr ed during a Public Health Emerge ncy (PHE), as define d by law, due to respir atory- transm itted infect ious diseas e. There were signif icant additi onal practi ce expens es relate d to activi ties requir ed to safely provid e medica l servic es to patien ts in person during a PHE over and above those usuall y includ ed. This includ es provid ing instru ctions on social distan cing during the visit, checki ng patien ts for sympto ms upon arriva l, applyi ng and remova l of PPE, and perfor alberto additi onal cleani ng of the public spaces , imagin g rooms, equipm ent, and suppli es. Additi onally , there were increa sed expens es relate d to cleani ng suppli es, hand saniti zers, disinf ecting wipes, sprays , cleans ers, and PPE. Thank you for [facility] with your referr al. If you are a Health Care Provid er and would like to speak with a Radiol ogist concer jorge this exam, please call . SIN MCNAIR MD DICTAT ING PHYSIC JOSHUA APPROV ING PHYSIC JOSHUAHannah MCNAIR MD 2019 01:46 PM 0 01:41 PM Adan arias Copy to: JEOVANNY MONTGOMERY MD [facility] Scheduling Dept (Imaging) [facility] [place], [address], 12/11/2020 17:03:17 11/26/19 21 11/26/2020 US, abdom en, limit ed Workst ation: [id number] EXAM: ABDOMI NAL ULTRAS OUND LIMITE D INDICA TION: Abnorm al liver functi on tests COMPAR SAIMA: CT 2013 TECHNI QUE: Using transa bdomin al techni que, the upper abdome n was imaged using real time ultras ound. Views were obtain ed in the transv erse and longit udinal planes . FINDIN GS: Genera l: No free fluid. Liver: Normal . Biliar y System : Status post cholec ystect [place]. No biliar y dilata tion. Pancre as: Normal . Right Kidney : Right kidney is normal . Vascul ature: The aorta and IVC appear normal . IMPRES EDWIN: 1. Status post cholec ystect deed[place]. 2. Otherw ise unrema rkable ultras ound right upper quadra nt of the abdome n. This encoun ter occurr ed during a Public Health Emerge ncy (PHE), as define d by law, due to respir atory- transm itted infect ious diseas e. There were signif icant additi onal practi ce expens es relate d to activi ties requir ed to safely provid e medica l servic es to patien ts in person during a PHE over and above those usuall y includ ed. This includ es provid ing instru ctions on social distan cing during the visit, checki ng patien ts for sympto ms upon arriva l, applyi ng and remova l of PPE, and perfor alberto additi onal cleani ng of the public spaces , imagin g rooms, equipm ent, and suppli es. Additi onally , there were increa sed expens es relate d to cleani ng suppli es, hand saniti zers, disinf ecting wipes, sprays , cleans ers, and PPE. Thank you for trusti ng [facility] with your referr al. If you are a [facility] er and would like to speak with a Radiol ogist concer jorge this exam, please call [phone] . MARIA ELENA MARCUS ND, MD DICTAT ING PHYSIC [facility] APPROV ING PHYSIC [facility]UA MARIA ELENA MARCUS ND, MD 2020 09:27 AM MM/ 09:27 AM Courte sy Copy to: JEOVANNY MONTGOMERY MD [facility] Radiology [facility] Scheduling Dept (Imaging) [address] [place], [address], 12/11/2020 17:03:17 02/21/20 21 02/15/2021 US, he santoyo, leif pierre, gordo brantley, limit ed Workst ation: [id number] EXAM: RIGHT UPPER EXTREM ITY DOPPLE R VENOUS ULTRAS OUND INDICA TION: Right upper extrem ity locali zed swelli ng. 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 TECHNI QUE: Right upper extrem ity duplex imagin g with color- flow and pulsed -wave Dopple r includ es sampli ng of the subcla vian, jugula r, axilla ry, brachi al, basili c, and cephal ic vein origin s. FINDIN GS: There is normal compre ssibil ity. Subcla vian vein is patent . Dopple r wavefo yamilet are normal with normal respon se to augmen tation . Color Dopple r images are negati ve. IMPRES EDWIN: 1. Normal exam withou t eviden ce of deep venous thromb osis (DVT). Thank you for trusti [facility] with your referr al. If you are a [facility] er and like to speak with a Radiol ogist concer jorge this exam, please call [phone] . KEATON Eason MD DICTAT ING PHYSIC [facility] APPROV ING PHYSIC JOSHUA GALINDO MD 2020 01:48 PM CHG/ 21 04:28 PM Courte sy Copy to: [email or web address] [facility] Scheduling Dept (Imaging) [address], [place], [address], 02/21/2021 14:33:19 Result Notes None recorded. Problems Name Problem SNOMED Code Status Onset Date Resolution Date Notes Provider Name and Address Organization Details Recorded Time Essential hypertension 87171436 Active 2018 Jeovanny Ramírez MD [address] [facility], [place], [address], [facility] 9 15:44:10 Congestive heart failure 37508403 Active 2018 35% EF Jeovanny Ramírez MD [address], [place], [address], [facility] 0 10:47:34 Osteoarthritis 423030349 Active 2018 Jeovanny Ramírez MD [address], [place], [address], [facility] 9 15:44:46 History of depression 421318340 Active 2018 Jeovanny Ramírez MD [address], [place], [address], [facility] 9 15:48:55 Anemia 301136859 Active 2019 Jeovanny Ramírez MD [address], [place], [address], [facility] 0 10:47:03 Cardiomyopathy 74621828 Active 2019 Jeovanny Ramírez MD [address] [facility], [place], [address], [facility] 0 10:47:12 Pulmonary hypertension 69322229 Active 2019 Jeovanny Ramírez MD [address] [facility], [place], [address], [facility] 0 10:47:21 Multiple nodules of lung 246507892 Active 2019 Jeovanny Ramírez MD [address], [place], [address], [facility] 0 10:52:24 Iron deficiency 19137832 Active 2017 Jeovanny Ramírez MD [address], [place], [address], [facility] 8 13:29:34 Anxiety 37000141 Active 2017 Jeovanny Ramírez MD [address], [place], [address], [facility] 8 13:29:44 Hyperlipidemia 78319145 Active 2017 MD Dirk Tian [facility], [place], [address], [facility] 8 13:30:09 Gastroesophage al reflux disease 795566991 Active 2017 Jeovanny Ramírez MD [address] [facility], [place], [address], [facility] 8 13:30:17 Insomnia 671697068 Active 2017 Jeovanny Ramírez MD [address] [facility], [place], [address], [facility] 8 13:30:45 Neuropathy 069523344 Active 2017 Jeovanny Ramírez MD [address] [facility], [place], [address], [facility] 8 13:30:54 Atrial fibrillation 02344181 Active 2017 MD Dirk Tian [facility], [place], [address], [facility] 8 13:39:15 Cardiac pacemaker in situ 719058377 Active 2017 MD Dirk Tian [facility], [place], [address], [facility] 8 13:39:28 Single coronary vessel disease 923639333 Active 2017 Jeovanny Ramírez MD [address] [facility], [place], [address], [facility] 8 13:39:46 Problem Notes None recorded. Procedures Surgical History Date Name Laterality Status Provider Name and Address Organization Details Recorded Time 018 colonoscopy completed MD Dirk Tian [facility], [place], [address], [facility] 12/06/2019 14:23:08 Back Surgery completed MD Dirk Tian [facility], [place], [address], [facility] 02/06/2019 15:45:52 cardiac catheterization completed MD Dirk Tian [facility], [place], [address], [facility] 02/06/2019 15:46:05 Appendectomy completed MD Dirk Tian [facility], [place], [address], [facility] 02/06/2019 15:46:13 hysterectomy completed MD Dirk Tian [facility], [place], [address], [facility] 02/06/2019 15:46:26 cardioversion completed MD Dirk Tian [facility], [place], [address], [facility] 02/06/2019 15:46:40 cardiac pacemaker procedure completed MD Dirk Tian [address], [place], [address], [facility] 02/06/2019 15:46:53 arthroplasty of knee completed MD Dirk Tian [facility], [place], [address], [facility] 02/06/2019 15:47:05 parathyroidectomy completed Lulu Alvarez [facility] 10/25/2020 10:24:23 Imaging Results Imaging Date Name Status LastModified by Organiz ation Details LastModified Time 11/06/2020 CT, orbit / sella / posterior fossa / ear, w/o contrast completed [facility] Scheduling Dept (Imaging) [address] [place] [address], [address], 12/11/2020 17:03:17 11/26/2020 US, abdomen, limited completed [facility] Scheduling Dept (Imaging) [address] [place] [address], [address], 12/11/2020 17:03:17 02/15/2021 US, duplex, venous, extremity, limited completed [address] Scheduling Dept (Imaging) [address] [place] [address], [address], 02/21/2021 14:33:19 Procedure Notes None recorded. Medical Equipment None Reported. Allergies No known drug allergies Medications Name Sig Start Date Stop Date Status Note LastModified by Organization Details LastModified Time amoxicillin 500 mg capsule TAKE 1 CAPSULE 3 TIMES A DAY FOR 10 DAYS 02/15 completed Not Available Not Available Not Available atorvastati n 40 mg tablet ONE TABLET DAILY active Not Available Not Available No t Available prednisone 10 mg tablet 10/06 completed Not Available Not Available Not Available gabapentin 600 mg tablet 800 mg 3 times daily 09/27 completed Not Available Not Available Not Available doxycycline hyclate 100 mg capsule TAKE ONE CAPSULE BY MOUTH 2 TIMES DAILY FOR 10 DAYS 02/15 completed Not Available Not Available Not Available atorvastati n 20 mg tablet Take 1 tablet every day by oral route. 10/25 completed Not Available Not Available Not Available torsemide 20 mg tablet 2 tabs daily active Not Available Not Available No t Available ibuprofen 800 mg tablet TAEK 1 TABLET 3 TO 4 TIMES A DAYFOR 4 DAYS NEEDED active Not Available Not Available No t Available Keflex 500 mg capsule Take 1 capsule 3 times a day by oral route. 10/08 completed Not Available Not Available Not Available ondansetron HCl 4 mg tablet Take 1 tablet 3 times a day by oral route. active Not Available Not Available No t Available clonazepam 0.5 mg tablet Take 1 tablet twice a day by oral route as needed. active Not Available Not Available No t Available metoprolol succinate ER 100 mg tablet,exte nded release 24 hr ONE DAILY active Not Available Not Available No t Available gabapentin 400 mg capsule 03/16 completed Not Available Not Available Not Available omeprazole 40 mg capsule,del ayed release 10/06 completed Not Available Not Available Not Available prednisone 10 mg tablets in a dose pack 10/06 completed Not Available Not Available Not Available famotidine 20 mg tablet Take 1 tablet twice a day by oral route. active Not Available Not Available No t Available gabapentin 800 mg tablet TAKE 1 TABLET AT BEDTIME active Not Available Not Available No t Available dicyclomine 20 mg tablet as needed active Not Available Not Available No t Available amitriptyli ne 10 mg tablet TAKE 1 TABLET BY MOUTH EVERY DAY AT NIGHT active Not Available Not Available No t Available paroxetine 20 mg tablet once daily active Not Available Not Available No t Available cyanocobala min (vit B-12) 1,000 mcg/mL injection solution EVERY MONTH WITH SYRINGES 25 GUAGE, ETOH PADS AND BIOHAZARD BOX. DISP 6 MONTH SUPPLY.*P ALFONSO LIMMIT* active Not Available Not Available No t Available oseltamivir 75 mg capsule 09/27 completed Not Available Not Available Not Available warfarin 2 mg tablet 10/25 completed Not Available Not Available Not Available metoprolol tartrate 50 mg tablet 2 times daily 10/25 completed Not Available Not Available Not Available gabapentin 300 mg capsule 2 caps in the morning 09/27 completed Not Available Not Available Not Available omeprazole 20 mg capsule,del ayed release 09/27 completed Not Available Not Available Not Available zolpidem 5 mg tablet 09/27 completed Not Available Not Available Not Available gabapentin 100 mg capsule 1- 2 tabs in am active Not Available Not Available No t Available ergocalcife rol (vitamin D2) 1,250 mcg (50,000 unit) capsule TAKE 1 CAPSULE BY MOUTH ONE TIME PER WEEK 10/25 completed Not Available Not Available Not Available nystatin 100,000 unit/gram topical powder 10/06 completed Not Available Not Available Not Available lorazepam 1 mg tablet 10/25 completed Not Available Not Available Not Available levofloxaci n 500 mg tablet 10/06 completed Not Available Not Available Not Available zolpidem 10 mg tablet active Not Available Not Available No t Available doxycycline hyclate 100 mg tablet 10/06 completed Not Available Not Available Not Available loratadine 10 mg tablet TAKE 1 TABLET BY MOUTH EVERY DAY active Not Available Not Available No t Available gentamicin 0.1 % topical ointment active Not Available Not Available Not Available diazepam 5 mg tablet 12/11 completed Not Available Not Available Not Available amoxicillin 875 mg-potassiu m clavulanate 125 mg tablet 10/06 completed Not Available Not Available Not Available Vitamin D 50,000 unit capsule Take 1 capsule every week by oral route. 10/25 completed Not Available Not Available Not Available cholestyram ine (with sugar) 4 gram powder for susp in a packet 09/27 completed Not Available Not Available Not Available Klor-Con M20 mEq tablet,exte nded release 10/25 completed Not Available Not Available Not Available duloxetine 30 mg capsule,del ayed release active Not Available Not Available Not Available duloxetine 60 mg capsule,del ayed release active Not Available Not Available Not Available levalbutero l HFA 45 mcg/actuati on aerosol inhaler 10/06 completed Not Available Not Available Not Available Aspir-81 one daily active Not Available Not A vailable Not Available MoviPrep 100 gram-7.5 gram-2.691 gram oral powder packet 10/06 completed Not Available Not Available Not Available Durezol 0.05 % eye drops 09/27 completed Not Available Not Available Not Available GaviLyte-N 420 gram oral solution 10/25 completed Not Available Not Available Not Available Besivance 0.6 % eye drops,suspe nsion 09/27 completed Not Available Not Available Not Available Prevnar 13 (PF) 0.5 mL intramuscul ar syringe PHARMACY ADMINISTE RED 12/11 completed Not Available Not Available Not Available Dexilant 60 mg capsule, delayed release one capsule by mouth daily active Not Available Not Available No t Available Probiotic active Not Available Not Angie ilable Not Available Suprep Bowel Prep Kit 17.5 gram-3.13 gram-1.6 gram oral solution TAKE DIRECTED 10/25 completed Not Available Not Available Not Available Eliquis 5 mg tablet ONE TAB TWICE A DAY active Not Available Not Available No t Available Jardiance 10 mg tablet active Not Available Not Available Not Available Incruse Ellipta 62.5 mcg/actuati on powder for inhalation INHALE ONCE DAILY active Not Available Not Available No t Available Entresto 24 mg-26 mg tablet TAKE 1 TABLET BY MOUTH TWICE A DAY active Not Available Not Available No t Available Fluad Quad (6 5yr up)(PF) 60 mcg (15 mcg x 4)/0.5mL IM syringe TO BE ADMINISTE RED BY PHARMACIS T FOR IMMUNIZAT ION 02/06 completed Not Available Not Available Not Available Vitals Date Recorded Body height Body temperature Heart rate Respiratory rate Oxygen saturation Oxygen saturation in Arterial blood by Pulse oximetry Body mass index (BMI) Body weight Systolic blood pressure Diastolic blood pressure Provider Name and Address Organization Details Last Updated DateTime 0 177.8 cm 97.9 [degF] 86 /min 16 /min 98 % 98 % 32.6 kg/m2 382138. 47 g 106 mm[Hg] 68 mm[Hg] [facility] 0 10:26:22 Date Recorded Body height Body temperature Respiratory rate Heart rate Oxygen saturation Oxygen saturation in Arterial blood by Pulse oximetry Systolic blood pressure Diastolic blood pressure Provider Name and Address Organization Details Last Updated DateTime 1 177.8 cm 97.8 [degF] 16 /min 68 /min 99 % 99 % 110 mm[Hg] 70 mm[Hg] [facility] 1 15:05:26 Date Recorded Body height Respiratory rate Body temperature Body mass index (BMI) Body weight Oxygen saturation Oxygen saturation in Arterial blood by Pulse oximetry Inhaled oxygen flow rate Heart rate Systolic blood pressure Diastolic blood pressure Provider Name and Address Organization Details Last Updated DateTime 1 177.8 cm 20 /min 98.4 [degF] 32.4 kg/m2 889138. 88 g 99 % 99 % 2 L/min 88 /min 116 mm[Hg] 70 mm[Hg] Lulu Benningho [facility] 1 08:58:53 Date Recorded Body height Respiratory rate Body temperature Heart rate Systolic blood pressure Diastolic blood pressure Provider Name and Address Organization Details Last Updated DateTime 1 177.8 cm 18 /min 98.4 [degF] 120 /min 166 mm[Hg] 84 mm[Hg] Lulu Quintana [facility] 1 14:33:56 Social History Question Answer Notes LastModified by Organizat ion Details LastModified Time Tobacco Smoking Status Former Smoker Not Available [facility] 09/25/2020 03:28:20 What Is Your Level Of Alcohol Consumption? Occasional Information not available 10/25/2020 Are You Blind Or Do You Have Difficulty Seeing? No [id number] Information not available 09/25/2020 What Is Your Level Of Caffeine Consumption? Moderate Information not available 10/25/2020 How Much Tobacco Do You Chew? None [id number] Information not available 09/25/2020 If Patient Spent Time In [facility] - Does The Patient Live In [facility]? No Information not available 12/11/2020 In The 14 Days Before Symptom Onset, Did The Patient Spend Time In [facility]? No Information not available 10/25/2020 Have You Been To An Area Known To Be High Risk For COVID-19? No Information not available 10/25/2020 Are You Deaf Or Do You Have Serious Difficulty Hearing? No [id number] Information not available 09/25/2020 Do You Or Have You Ever Used E-cigarettes Or Vape? Never Used Electronic Cigarettes [id number] Information not available 09/25/2020 How Many Days Of Moderate To Strenuous Exercise, Like A Brisk Walk, Did You Do In The Last 7 Days? 1 [id number] Information not available 09/25/2020 On Those Days That You Engage In Moderate To Strenuous Exercise, How Many Minutes, On Average, Do You Exercise? 1 [id number] Information not available 09/25/2020 How Hard Is It For You To Pay For The Very Basics Like Food, Housing, Medical Care, And Heating? [id number] [email or web address] Information not available 12/06/2019 Live Alone Or With Others? [facility] Information not available 12/06/2019 [facility]form[facility] t[facility] not available 12/06/2019 What Was The Date Of Your Most Recent Tobacco Screening? 10/25/2020 [email or web address] Information not available 10/25/2020 Do You Or Have You Ever Used Smokeless Tobacco? Never Used Smokeless Tobacco [id number] Information not available 09/25/2020 Do You Feel Stressed (tense, Restless, Nervous, Or Anxious, Or Unable To Sleep At Night)? [id number] Information not available 09/25/2020 Sex: Unknown Functional Status Question Answer Note LastModified by Organizat ion Details LastModified Time Do you have difficulty walking or climbing stairs? No [id number] Information not available 09/25/2020 Do you have transportation difficulties? Yes [facility] Information not available 09/03/2021 Are you able to walk? YESWOREST [id number] Information not available 09/25/2020 Do you have difficulty doing errands alone? No [id number] Information not available 09/25/2020 Are you able to care for yourself? Yes [facility] Information not available 09/03/2021 Do you have difficulty dressing or bathing? No [id number] Information not available 09/25/2020 Mental Status Question Answer Note LastModified by Organization D etails LastModified Time Do you have difficulty concentrating, remembering or making decisions? No [id number] Information no t available 09/25/2020 Family History Relationship Description Onset Age of this Age Resolved Age Notes LastModified by Organization Details LastModified Time Father Cerebrovascu lar accident [email or web address] Not available 15:45:10 Mother Neoplasm of brain [email or web address] Not available 02/06 15:45:24 Medical History Condition Response Allergies/Hayfever Y Arthritis Y High Cholesterol Y Congestive Heart Failure (CHF) Y Acid Reflux (GERD) Y Heart Disease N Back Problems Y Hypertension Y Depression Y Gynecological HistoryNo gynecological history recorded. Obstetrics History GPAL:G 0 P 0 0 0 0 Immunizations Vaccine Type Date Status Note Provider Nam e and Address Organization Details Recorded Time COVID-19, mRNA, LNP-S, PF, 100 mcg/0.5mL dose or 50 mcg/0.25mL dose 1 completed Lulu Quintanatevin [facility] 02/15/2021 08:54:20 COVID-19, mRNA, LNP-S, PF, 100 mcg/0.5mL dose or 50 mcg/0.25mL dose 1 completed Lulu Alvarez [facility] 02/15/2021 08:54:20 Influenza, split virus, quadrivalent, preservative 9 completed Jeovanny Ramírez MD [address] [place] [address], [phone], [facility] 09/27/2019 13:43:08 Pneumococcal conjugate PCV 13 0 completed [facility] Antonio [facility] 12/11/2020 15:04:27 Influenza, split virus, quadrivalent, preservative 0 completed [facility] 12/11/2020 15:05:02 Past Encounters Encounter ID Performer Location Encounter Start Date Encounter Closed Date Diagnosis/Indication Diagnosis SNOMED-CT Code Diagnosis ICD10 Code Diagnosis Note [id number] Jeovanny Ramírez MD Main Office [address] [place] [address],[address] [place] [address] 10/06/2018 12:58:14 10/06/2018 13:57:46 Hyperlipidemia 70160610 E78.2 check LP, CMP Anxiety 89026930 F41.9 Fatigue 55321052 R53.83 Mixed hyperlipidemia 267 478398 E78.2 Iron defic iency anemia 21927025 D50.9 Hyperglycemia 71896348 R 73.9 Vitamin D deficiency 347 90850 E55.9 Cobalamin deficiency 190 834946 E53.8 Increased frequency of urination 881148032 R35.0 Dog bite of hand 8414478 06 S61.459D Essential hypertension 76897359 I10 [id number] Jeovanny Ramírez MD Main Office [address] [facility],[address] [place] [address] 12/20/2018 13:23:11 12/20/2018 16:31:54 Neuropathy 482793696 G62.9 Anti-nucle ar factor detected 097432133 R76.8 [id number] Jeovanny Ramírez MD Main Office [address] [place] [address] [address] [place] [address] 09/27/2019 12:51:33 09/27/2019 14:01:39 Screening mammography 43886340 Z12.31 Hyperparathyroidism 6699 9008 E21.3 Essential hypertension 60530658 I10 [id number] Jeovanny Ramírez MD Main Office [address] [place] [address] [address] [place] [address] 12/06/2019 13:47:22 12/06/2019 15:01:11 Adult health examination 211349412 Z00.00 Screening for cardiovascular system disease 698938454 Z13.6 discussed exercise, diet, control of lipids and BP. She has hx of CHF and cardiac pacemaker- stable at present Depression screening 171 411696 Z13.31 mild Hyperparathyroidism 6699 9008 E21.3 Abnormal urine 879307952 R82.90 Hyperlipidemia 20366312 E78.2 check LP, CMP Impaired g lucose tolerance 5289106 R73.09 Fatigue 73077117 R53.83 [id number] Jeovanny Ramírez MD Main Office [address] [place] [address] [address] [place] [address] 03/16/2020 08:43:45 03/16/2020 12:22:04 Neuropathy 017399034 G62.9 Essential hypertension 24495507 I10 stable, continue the same History of parathyroidectomy 2283056959 32575 Z90.89 Anxiety 98798383 F41.9 [id number] Jeovanny Ramírez MD Main Office [address] [place] [address] [address] [place] [address] 10/25/2020 10:07:27 10/25/2020 11:22:47 Neuropathy 754997975 G62.9 Liver func tion tests outside reference range 510057472 R94.5 Anemia 636244673 D64.9 Anti-nucle ar factor detected 794393675 R76.8 Hyperlipidemia 26545748 E78.2 check LP, CMP Fatigue 86906880 R53.83 Increased frequency of urination 943069771 R35.0 Impaired g lucose tolerance 0496258 R73.09 [id number] Jeovanny Ramírez MD Main Office [address] [place] [address],[address] [place] [address] 12/11/2020 14:28:52 12/11/2020 15:37:54 Adult health examination 806575692 Z00.00 Screening mammography 24 004629 Z12.31 Depression screening 171 871753 Z13.31 mild, treated Essential hypertension 78243025 I10 stable, continue the same [id number] Jeovanny Ramírez MD Main Office [address] [place] [address],[address] [place] [address] 02/15/2021 08:24:15 02/15/2021 09:34:20 Swelling of upper limb 058604325 R22.31 r/o DVT Essential hypertension 13258463 I10 stable, continue the same [id number] Jeovanny Ramírez MD Main Office [address] [place] [address],[facility] [address] [place] [address] 09/03/2021 14:13:07 09/03/2021 23:27:00 Nausea 363943254 R11.0 Abdominal pain 37250179 R10.9 r/o diverticul itisto ER Constipation 30824792 K5 9.00 Health Concerns Section Related Observation LastModified by Organization Detai ls LastModified Time None Recorded Concern Status LastModified by Organization Details LastModified Time None Recorded Advance Directives Directive None Recorded Payers Encounter Date Sequence Insurance Name Policy Number Policy Fields Covered Member ID Feilds Member ID Guarantor Name 03/16/2020 2 [place] [id number] Kimberly Lr Bulat [id number] Kimberly Bulat 03/16/2020 1 [place] Kimberly Lr Bulat [id number] Kimberly Bulat 10/25/2020 2 [place] [id number] Kimberly Lr Bulat [id number] Kimberly Bulat 10/25/2020 1 [place] Kimberly Lr Bulat [id number] Kimberly Bulat 12/11/2020 2 [facility] [facility] [id number] Kimberly Lr Bulat [id number] Kimberly Bulat 12/11/2020 1 [place] Kimberly Chaparroat [id number] 1 Kimberly Bulat 02/15/2021 2 [facility] [facility] [id number] Kimberly Chaparroat [id number] Kimberly Bulat 02/15/2021 1 [place] Kimberly Chaparroat [id number] 1 Kimberly Bulat 09/03/2021 2 [facility] [facility] [id number] Kimberly Lr Bulat [id number] Kimberly Bulat 09/03/2021 1 [place] Kimberly Chaparroat [id number] 1 Kimberly Buldeisy Notes Date Note Type Note Provider Name and Address Organization Details Recorded Time 0 text/html Anxiety/DepressionReported bypatient.Quality:symptoms worse in the evening;symptoms worse during the day Duration:frequent Context:major life stressors Modifying Factors:medications as directed Associated Symptoms:depression;insomni a;sleep disturbances;anhedonia;anxi ety with muscle tensionNotes:NEUROPATHY The patient has hx of neuropathy. No new complaints. takes Gabapentin and needs a refill. Not able to sleep and anxious. Denies edema, xhange of diet or back painHypertension IM/FMReported bypatient.Quality:here for check-up Severity:moderate Duration:HTN present for many years Onset/Timing:better Alleviating Factors:relieved with rest; medication Aggravating Factors:nothing makes it worse; worse with activity Self Care:under emotional stress Associated Symptoms:no palpitations; no decline in exercise capacity;shortness of breath;fatigue The patient verbally consented to telehealth/telemedicine care performed by the physicians and all other [facility]. This includes examinations, diagnostic testing, treatment and other health care services deemed medically necessary in the Providers? professional judgment. Jeovanny Ramírez MD [address] [place], [address], [facility] 03/16/2020 12:21:43 0 text/html HyperlipidemiaReported bypatient.Type of hyperlipidemia:combined Control:not at goal Compliance:noncompliant with diet;does not exercise Complications:coronary artery disease;cardiovascular disease Risk Factors:hypertensionHyperte nsion IM/FMReported bypatient.Quality:here for check-up Severity:moderate Onset/Timing:gradual onset Context:exertion Alleviating Factors:relieved with rest; medication Self Care:under emotional stress;not watching diet;sedentaryNotes:ABNORMA L LFTs. Pt [place] work [place], its unclear what the reason for the elevated LFTs is. She also saw correction officer [facility] for pulmonary HTN, lung nodules. She is on Oxygen now. Has slasher tender for follow up a fib. She was told she has cardiomyopathy, pulmonary HTN Saw a hostess cashier - no dx of autoimmune disease was made. 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 Will order more tests ANEMIA Had GI work up, which discovered polyps in the intestine. Very few records are avaiable for [place] Jeovanny Ramírez MD [address] [place], [address], [facility] 10/25/2020 22:52:20 1 text/html Medicare Annual Wellness VisitReported bypatient.Diet and Nutrition:high carbohydrate meals; discussed vitamin and supplement use; discussed portion control; discussed maintaining calcium balance; discussed diet improvement Fracture Risk:no history of fractures; no recent explained fracture; no sudden unexplained fractures Physical Activity:exercises on a regular basis; recent increase in physical activity; good physical condition Depression Risk:never feels sad, empty, or tearful; no loss of interest in activities; no significant changes in weight; no sleep disturbances or insomnia; no history of depression Orientation:no disorientation to time; no disorientation to date; no disorientation to place Concentration and Memory:no decreased concentrating ability; no memory lapses or loss; does not forget words Speech/Motor difficulties:no difficulty expressing formulated concepts; no difficulty with fine manipulative tasks; no difficulty writing/copying; no slowed reaction time Hearing:no loss of hearing Vision:no vision problems Activities of Daily Living:able to bathe with limited or no assistance; able to dress with limited or no assistance; able to feed self with limited or no assistance; able to get out of chair or bed with limited or no assistance Instrumental Activities of Daily Living:able to do house work with limited or no assistance; able to grocery shop with limited or no assistance; able to manage medications with limited or no assistance; able to manage money with limited or no assistance Falls Risk Assessment:no frequent falls while walking; no fall in the past year Jeovanny Ramírez MD [address] [place], [address] 12/30/2020 10:08:18 text/html EdemaReported bypatient.Location:RLE Quality:legs do not swell equally;symptoms worse in the evening Severity:moderate Onset/Timing:started few weeks ago Context:no prior history of edema; no prior history of deep vein thrombosis; no new medications; normal salt intake; no recent travel Modifying Factors:nothing gives relief; nothing makes it worse; relieved by position (elevating legs); RX medication; OTC medication Associated Symptoms:no shortness of breath; no shortness of breath during exertion; no nocturia; no swelling in lower legs; no significant weight gain; no cough; no orthopneaHypertension IM/FMReported bypatient.Quality:here for check-up Severity:moderate Onset/Timing:gradual onset Context:exertion Alleviating Factors:relieved with rest; medication Self Care:sedentaryNotes:Also, has a dog bite on her hand. Not healing fast. Will xray and start Augmentin Jeovanny Ramírez MD [address] [place], [address] 02/23/2021 09:49:04 text/html Abdominal PainReported bypatient.Location:LLQ; epigastric Quality:bloating;cramping;a shantal;burning Severity:moderate Duration:constant Onset/Timing:worse Aggravating Factors:movement; eating Alleviating Factors:nothing gives relief Associated Symptoms:no fever; no chills;nausea;vomiting;cons tipation Previous Tests, Treatment and/or Diagnostic Procedures:noneNotes:Was seen in ER 2 days ago Jeovanny Ramírez MD [address] [facility], [place], [address], [facility] 09/03/2021 23:26:37 OBGyn Episode No OBEpisode recorded.
--- OUTSIDE RECORDS SUMMARY | 2024-12-19 16:45 | XMS_ITS | Encounter Summary ---
Author Organization [facility] Address [address] [place] [phone] Care Team Providers Care Assistant Executive Housekeeper Name Role Phone Jace Blake DO Primary Care Provider [phone] Encounter Details Date Type Department Care Team (Late st Contact Info) Description 07/16/2023 Transcribed Orders [facility] [address] [place] [address] Aki Ross MD [address] [phone] Social History Tobacco Use Types Packs/Day Years [...] Follow Up Congestive Heart Failure Program at [address] [place] [address] [facility] 2nd [place] [address] Diana Coppola MD [address] [place] [phone] 06/07/2025 10:30 AM EDT Follow Up Neuromuscular Medicine at [address] [place] [address] [facility] [place] [address] Silvestre Maldonado MD [address] [place] [phone] 10/05/2025 12:30 PM EST Appointment [facility] - [address] [phone] Aparna Chang MD [address] [place] [phone] [place], [facility] 10/05/2025 1:00 PM EST Appointment [facility] - [address] [address] Aparna Chang MD [address] [place] [phone] 1, Pft Procedure Room 10/05/2025 2:00 PM EST Office Visit [facility] [address] [id number] Aparna Chang MD [address] [place] [phone] documented as of this encounter Visit Diagnoses Not on filedocumented in this encounter Additional Health Concerns Assessment Noted Time PHQ-9 Depression Total Score: 0 07/01/20 23 10:25 AM EDT documented as of this encounter Care Teams Assistant Executive Housekeeper Relationship Specialty Start Date End Date Jace Blake DO [address] [place] [address] PCP - General Family Medicine 08/01/14 documented as of this encounter
--- OUTSIDE RECORDS SUMMARY | 2024-12-19 16:45 | XMS_ITS | Encounter Summary ---
Author Organization [facility] Address [address] [place] [address] Care Team Providers Care Home Health Caregiver Name Role Phone HaydenJace Primary Care Provider [phone] Encounter Details Date Type Department Care Team (Latest Contact Info) Description 07/14/2023 Transcribed Orders [facility] 45 [place] [address] Aki Ross MD [address] [address] Cardiac pacemaker in situ (Primary Dx); Preop examination Social History Tobacco Use Types Packs/Day Years [...] Follow Up Congestive Heart Failure Program at [address] [place] [address] [address] [facility] 2nd [facility] [place] [address] [place] Coppola MD 800 [place] [address] 06/07/2025 10:30 AM EDT Follow Up Neuromuscular Medicine at [address] [facility] [address] [facility] [place], [place] [address] Silvestre Maldonado MD [address] [place] [phone] 10/05/2025 12:30 PM EST Appointment PULMONARY FUNCTION LABORATORY - [address] [address] Aparna Chang MD [address] [place] [phone] [facility], Pft Walk 10/05/2025 1:00 PM EST Appointment PULMONARY FUNCTION LABORATORY - [address] [address] Aparna Chang MD [address] [place] [phone] 1, Pft Procedure Room 10/05/2025 2:00 PM EST Office Visit [facility] [address] [phone] Aparna Chang MD [address] [place] [phone] documented as of this encounter Results * Partial thromboplastin time (BH GH LMW Q YH) (07/16/2023 1:03 PM EDT) PTT 29.1 21.0 - 32.0 seconds 07/16/2023 3:13 PM EDT [facility] Comment: RECOMMENDED THERAPEUTIC RANGE: 40-80 SECONDS Blood Venipuncture / Unknown 07/16/2023 1:03 PM EDT 07/16/2023 1:03 PM EDT Aki Ross MD LAB BLOOD ORDERABLES Final Res ult Performing Organization Address [facility] [place] [address], [facility] [phone] * Protime and INR (07/16/2023 1:03 PM EDT) Pathologist [facility] Prothrombin Time 11.0 9.0 - 11.1 seconds 07/16/2023 3:13 PM [facility] INR 1.14 0.90 - 1.16 07/16/2023 3:13 PM [facility] Comment: RECOMMENDED INR THERAPEUTIC RANGES: ?STANDARD INTENSITY......2.0-3.0 ?HIGH INTENSITY..........2.5-3.5 Blood Venipuncture / Unknown 07/16/2023 1:03 PM EDT 07/16/2023 1:03 PM EDT Aki Ross MD LAB BLOOD ORDERABLES Final Res ult Performing Organization Address [facility] [place] [address], [facility] [phone] documented in this encounter Visit Diagnoses Diagnosis Cardiac pacemaker in situ- Primary Preop examination Preoperative examination, unspecified documented in this encounter Additional Health Concerns Assessment Noted Time PHQ-9 Depression Total Score: 0 07/01/20 23 10:25 AM EDT documented as of this encounter Care Teams Home Health Caregiver Relationship Specialty Start Date End Date Jace Blake DO 24 [place] [address] PCP - General Family Medicine 08/01/14 documented as of this encounter
--- OUTSIDE RECORDS SUMMARY | 2024-12-19 16:45 | XMS_ITS | Encounter Summary ---
Author Organization [facility] Address [address] [place] [address] Care Team Providers Care Automotive Parts Advisor Name Role Phone Jace Blake DO Primary Care Provider [phone] Encounter Details Date Type Department Care Team (Late st Contact Info) Description 09/14/2023 Scanned Document [facility] Neuromuscular Medicine at 800 [facility] 800 [place], [place] [phone] Silvestre Maldonado MD [address] [place] [phone] Social History Tobacco Use Types Packs/Day Years [...] Follow Up Congestive Heart Failure Program at [address] [place] [address] 800 [facility] 2nd [facility] [place] [address] [place] Coppola MD [address] [place] [phone] 06/07/2025 10:30 AM EDT Follow Up Neuromuscular Medicine at 800 [facility] 800 [facility] Lower [place], [place] [address] Silvestre Maldonado MD [address] [place] [address], [place] [address] 10/05/2025 12:30 PM EST Appointment PULMONARY FUNCTION LABORATORY - [address] [address] Aparna Chang MD [address] [place] [phone] [place], Pft Walk 10/05/2025 1:00 PM EST Appointment PULMONARY FUNCTION LABORATORY - [address] [address] Aparna Chang MD [address] [place] [phone] 1, Pft Procedure Room 10/05/2025 2:00 PM EST Office Visit [facility] [address] [phone] Aparna Chang MD [address] [place] [phone] documented as of this encounter Visit Diagnoses Not on filedocumented in this encounter Additional Health Concerns Assessment Noted Time PHQ-9 Depression Total Score: 0 07/01/20 23 10:25 AM EDT documented as of this encounter Care Teams Automotive Parts Advisor Relationship Specialty Start Date End Date Jace Blake DO [address] [place] [address] PCP - General Family Medicine 08/01/14 documented as of this encounter
--- OUTSIDE RECORDS SUMMARY | 2024-12-19 16:46 | XMS_ITS | Encounter Summary ---
Author Organization [facility] and [facility] Address [address] [place] [address] Care Team Providers Care Shoe Salesperson Name Role Phone Jace Blake DO Primary Care Provider [phone] Reason for Visit * Reason Onset Date Comments Other 12/08/2024 Encounter Details Date Type Department Care Team (Late st Contact Info) Description 12/08/2024 Telephone Neurology at 800 [facility] 800 [place], [place] [phone] Silvestre Maldonado MD [address] [place] [phone] Other Social History Tobacco Use Types Packs/Day Years Used Date Smoking Tobacco: Former Cigarettes 1 40 0 07/14/1972 - 07/14/2012 Smokeless Tobacco: Never Alcohol Use Standard Drinks/Week Comments Yes 0 (1 standard drink = 0.6 oz pur e alcohol) soc PHQ-2 Answer Date Recorded PHQ-2 Total Score 0 03/16/2024 Interpersonal Safety Answer Date Record ed Is there anyone in your life that is hurting or threatening you in anyway? Not on file 03/16/2024 Physical Indicators of Abuse No evidence of phys ical abuse 03/16/2024 Comments No Sex and Gender Information Value Date Recorded Sex Assigned at Not on file Legal Sex Female 9:43 AM EST Gender Identity Not on file Sexual Orientation Not on file documented as of this encounter Miscellaneous Notes * Telephone Encounter - Teresa Mosquera LPN - 12/09/2024 3:30 PM EST Returned call to pt left message advising clinical writer awaiting Dr. Maldonado to advise on specifics of compounding cream before it can be sent to [facility]. Restaurant Associate to follow up with MD again for this rx. * Telephone Encounter - Alma Rosa Desir - 12/09/2024 3:20 PM EST Copied from [facility] #[id number]. Topic: CARE General CRM - General Inquiry >> Dec 09, 2024 3:19 PM Alma Rosa Najera wrote: GEMA NAYLOR called regarding medication that has not been sent over to her pharmacy yet please send prescription for Cream to [facility] - [address] . * Telephone Encounter - Silvestre Maldonado MD - 12/08/2024 4:15 PM EST Yes please re: the compounded cream. Thanks! * Telephone Encounter - Chiquita Miller - 12/08/2024 9:43 AM EST Copied from [facility] #[id number]. Topic: General Message - CARE >> Dec 08, 2024 9:42 AM Chiquita Lr wrote: [facility] MESSAGE Time of call: 9:42 AM Caller: GEMA NAYLOR Caller's relationship to patient: self Calling from (pharmacy, hospital, agency, etc.): n/a Specialist you are calling for: Joel Reason for call: She stated while being seen yesterday she provided the information for the wrong compound center and would like to give the doctor the correct information , which is : [facility], phone [phone] If not feeling well, what are symptoms: n/a If having symptoms, how long have the symptoms been present: n/a Does caller request to speak to someone urgently? yes Best telephone number for callback: [phone] Best time to return call: anytime Permission to leave message: yes Chiquita Miller CARE Center Training And Development Director documented in this encounter Plan of Treatment Upcoming Encounters Date Type Department Care Team (Late st Contact Info) Description 12/28/2024 10:40 AM EST Follow Up Congestive Heart Failure Program at [address] [place] [address] [place] Coppola MD [address] [place] [phone] 06/07/2025 10:30 AM EDT Follow Up Neuromuscular Medicine at [address] [place] [address] [place] [address] Silvestre Maldonado MD [address] [place] [phone] 10/05/2025 12:30 PM EST Appointment PULMONARY FUNCTION LABORATORY - [address] [address] Aparna Chang MD [address] [place] [phone] [facility], Pft Walk 10/05/2025 1:00 PM EST Appointment PULMONARY FUNCTION LABORATORY - [address] [address] Aparna Chang MD [address] [place] [phone] 1, Pft Procedure Room 10/05/2025 2:00 PM EST Office Visit [facility] [address] [address] Aparna Chang MD [address] [place] [phone] documented as of this encounter Visit Diagnoses Not on filedocumented in this encounter Additional Health Concerns Assessment Noted Time PHQ-9 Depression Total Score: 0 03/16/20 24 10:01 AM EDT documented as of this encounter Care Teams Shoe Salesperson Relationship Specialty Start Date End Date Jace Blake DO [address] [place] [phone] PCP - General Family Medicine 08/01/14 documented as of this encounter
--- OUTSIDE RECORDS SUMMARY | 2024-12-19 16:46 | XMS_ITS | Encounter Summary ---
Author Organization [facility] Address [address] [place] [address] Care Team Providers Care Per Diem Interpreter Name Role Phone Jace Blake MD Primary Care Provider [phone] Provider, Rachid GARCIA Unavailable Unavaila Andres Topete MD Unavailable [phone] Aki Ross MD Unavailable [phone] Ursula Boo MD Unavailable [phone] Rocio Youssef PA-C Unavailable [phone] Emeterio Valencia MD Unavailable Encounter Details Date Type Department Care Team (Late st Contact Info) Description 04/01/2019 Scanned Document [facility] [place] [address] [place] [phone] Provider, External, [address] [place] [address] Social History Tobacco Use Types Packs/Day Years [...] Description 03/02/2025 1:40 PM EDT Office Visit [facility] [place] [address] [place] [address] Nico Bailey MD [address] [place] [address] 03/22/2025 1:30 PM EDT Office Visit [facility] [address] [place] [phone] Ursula Boo MD [address] [place] [address] 05/04/2025 10:00 AM EDT Office Visit [facility] [place] 45 [facility] [address] [place] [address] Aki Ross MD [address] [place] [address] documented as of this encounter Visit Diagnoses Not on filedocumented in this encounter Care Teams Per Diem Interpreter Relationship Specialty Start Date End Date Jace Blake MD [address] [place] [address] PCP - General Psychiatry, General 05/04/17 Rachid Robles MD 04/27/17 Andres Lakhani MD [address] [place] [address] Quick Sketch Artist Cardiology 07/08/19 Aki Ross MD [address] [place] [phone] Primary Quick Sketch Artist Cardiovascular Disease 07/08/19 Ursula Boo MD [address] [place] [address] Gastroenterology 06/07/20 Rocio Youssef PA-C [address] [address] Physician Oil Well Service Operator Helper Gastroenterology 06/07/20 [place] [address] [address] Clinician Pulmonary Medicine 06/20/20 documented as of this encounter
--- OUTSIDE RECORDS SUMMARY | 2024-12-19 16:46 | XMS_ITS | Encounter Summary ---
Author Organization [facility] Address [address] [place] [address] Care Team Providers Care Councilman Name Role Phone Miguel Angel Blakey Primary Care Provider [phone] Encounter Details Date Type Department Care Team (Late st Contact Info) Description 10/17/2024 Scanned Document INTERFACE DEFAULT [address] [place] [address] System, Provider Not In Social History Tobacco [...] Up Congestive Heart Failure Program at [address] [address] [place] Coppola MD [address] [place] [address] 06/07/2025 10:30 AM EDT Follow Up [facility] Neuromuscular Medicine at 800 [facility] 800 [facility] [place] [address] Silvestre Maldonado MD [address] [place] [phone] 10/05/2025 12:30 PM EST Appointment PULMONARY FUNCTION LABORATORY - [address] [address] Aparna Chang MD [address] [place] [phone] [facility], Pft Walk 10/05/2025 1:00 PM EST Appointment PULMONARY FUNCTION LABORATORY - [address] [address] Aparna Chang MD [address] [place] [phone] 1, Pft Procedure Room 10/05/2025 2:00 PM EST Office Visit [facility] [address] [phone] Aparna Chang MD [address] [place] [phone] documented as of this encounter Procedures Procedure Name Priority Date/Time Associated Diagnosis Comments LAB SCAN 10/17/2024 12:00 AM EST documented in this encounter Results * Lab Scan (10/17/2024 12:00 AM EST) us Provider Not In System LAB BLOOD ORDERABLES Yasmin l Result documented in this encounter Visit Diagnoses Not on filedocumented in this encounter Additional Health Concerns Assessment Noted Time PHQ-9 Depression Total Score: 0 03/16/20 24 10:01 AM EDT documented as of this encounter Care Teams Councilman Relationship Specialty Start Date End Date Jace Blake DO [address] [place] [address] PCP - General Family Medicine 08/01/14 documented as of this encounter
--- OUTSIDE RECORDS SUMMARY | 2024-12-19 16:46 | XMS_ITS | Encounter Summary ---
Author Organization [facility] Address [address] [place] [address] Care Team Providers Care Hydrographical Technical Officer Name Role Phone Jace Blake DO Primary Care Provider [phone] Reason for Visit * Reason Onset Date Comments Medication Refill 01/04/2024 Encounter Details Date Type Department Care Team (Late st Contact Info) Description 01/04/2024 Telephone Congestive Heart Failure Program at [address] [place], [place] [address] [place] Coppola MD [address] [place] [phone] Medication Refill Social History Tobacco Use Types Packs/Day Years Used Date Smoking Tobacco: Former Cigarettes 1 40 0 07/14/1972 - 07/14/2012 Smokeless Tobacco: Never Alcohol Use Standard Drinks/Week Comments Yes 0 (1 standard drink = 0.6 oz pur e alcohol) soc PHQ-2 Answer Date Recorded PHQ-2 Total Score 0 12/31/2023 Interpersonal Safety Answer Date Record ed Is [...] encounter Miscellaneous Notes * Telephone Encounter - Cheri Sanchez - 01/04/2024 12:46 PM EST LVM for patient to call back and schedule a follow up visit with Dr Coppola. Request for Cozaar Tab 5 mg was requested and sent to Nurse webster to refill. Thanks Cheri Mensah documented in this encounter Plan of Treatment Upcoming Encounters Date Type Department Care Team (Late st Contact Info) Description 12/28/2024 10:40 AM EST Follow Up Congestive Heart Failure Program at [address] [place] [address] [place] Coppola MD [address] [place] [phone] 06/07/2025 10:30 AM EDT Follow Up Neuromuscular Medicine at [address] [place] [address] [place] [address] Silvestre Maldonado MD [address] [place] [phone] 10/05/2025 12:30 PM EST Appointment PULMONARY FUNCTION LABORATORY - [address] [address] Aparna Chang MD [address] [place] [phone] [facility], Pft Walk 10/05/2025 1:00 PM EST Appointment PULMONARY FUNCTION LABORATORY - [address] [address] Aparna Chang MD [address] [place] [phone] 1, Pft Procedure Room 10/05/2025 2:00 PM EST Office Visit [facility] [address] [address] Aparna Chang MD [address] [place] [phone] documented as of this encounter Visit Diagnoses Not on filedocumented in this encounter Additional Health Concerns Assessment Noted Time PHQ-9 Depression Total Score: 0 12/31/19 24 11:03 AM EST documented as of this encounter Care Teams Hydrographical Technical Officer Relationship Specialty Start Date End Date Jace Blake DO [address] [place] [address] PCP - General Family Medicine 08/01/14 documented as of this encounter
--- OUTSIDE RECORDS SUMMARY | 2024-12-19 16:46 | XMS_ITS | Encounter Summary ---
Author Organization [facility] Address [address] [place] [address] Care Team Providers Care Wastewater Manager Name Role Phone Jace Blake MD Primary Care Provider Provider, Rachid GARCIA Unavailable Unavaila Andres Topete MD Unavailable [phone] Aki Ross MD Unavailable [phone] Ursula Boo MD Unavailable Rocio Youssef PA-C Unavailable Emeterio Valencia MD Unavailable Encounter Details Date Type Department Care Team (Late st Contact Info) Description 04/01/2019 Scanned Document [facility] Heart & Vascular [place] [address] [place] [address] Provider, External, 193 [place] [address] Social History Tobacco Use Types Packs/Day Years [...] Description 03/02/2025 1:40 PM EDT Office Visit [facility] Dermatology [place] 35 [place] [address] Nico Bailey MD 35 [place] [address] 03/22/2025 1:30 PM EDT Office Visit [facility] [address] [place] [phone] Ursula Boo MD [address] [place] [address] 05/04/2025 10:00 AM EDT Office Visit [facility] Heart & Vascular [place] 45 [facility] 102 [place] [address] Aki oRss MD [address] [place] [address] documented as of this encounter Visit Diagnoses Not on filedocumented in this encounter Care Teams Wastewater Manager Relationship Specialty Start Date End Date Jace Blake MD [address] [place] [address] PCP - General Psychiatry, General 05/04/17 Rachid Robles MD 04/27/17 Andres Lakhani MD [address] [place] [address] Development Expert Cardiology 07/08/19 Aki Ross MD [address] [place] [phone] Primary Development Expert Cardiovascular Disease 07/08/19 Ursula Boo MD [address] [place] [address] Gastroenterology 06/07/20 Rocio Youssef PA-C [address] [address] Physician Casing Trimmer Gastroenterology 06/07/20 [place] [address] [address] Clinician Pulmonary Medicine 06/20/20 documented as of this encounter
--- OUTSIDE RECORDS SUMMARY | 2024-12-19 16:46 | XMS_ITS | Encounter Summary ---
Author Organization [facility] Address [address] [place] [address] Care Team Providers Care Paradi Operator Name Role Phone Jace Blake MD Primary Care Provider [phone] Provider, Conversion Unavailable Unavaila Andres Topete MD Unavailable [phone] Aki Ross MD Unavailable [phone] Ursula Boo MD Unavailable [phone] Rocio Youssef PA-C Unavailable Emeterio Valencia MD Unavailable Encounter Details Date Type Department Care Team (Late st Contact Info) Description 03/31/2024 Scanned Document [facility] [address] [place] [address] Tl Mancera, W[place]DE[place] [address] [place] [address] Social History Tobacco Use Types [...] Description 03/02/2025 1:40 PM EDT Office Visit [facility] Dermatology [place] 35 [place] [address] Nico Bailey MD 35 [place] [address] 03/22/2025 1:30 PM EDT Office Visit [address] [address] Ursula Boo MD [address] [place] [address] 05/04/2025 10:00 AM EDT Office Visit [facility] Heart & Vascular [place] [address] [address] Aki Ross MD [address] [place] [address] documented as of this encounter Visit Diagnoses Not on filedocumented in this encounter Care Teams Paradi Operator Relationship Specialty Start Date End Date Jace Blake MD [address] [place] [address] PCP - General Psychiatry, General 05/04/17 Rachid Robles MD 04/27/17 Andres Lakhani MD [address] [place] [address] Freezing Machine Operator Cardiology 07/08/19 Aki Ross MD [address] [place] [address] [place] [address] Primary Freezing Machine Operator Cardiovascular Disease 07/08/19 Ursula Boo MD [address] [place] [address] Gastroenterology 06/07/20 Rocio Youssef PA-C [address] [place] [address] Physician Drafting Teacher Gastroenterology 06/07/20 Emeterio Valencia MD [address] [place] [address] Clinician Pulmonary Medicine 06/20/20 documented as of this encounter
--- OUTSIDE RECORDS SUMMARY | 2024-12-19 16:46 | XMS_ITS | Clinical Summary ---
Author Organization [facility] Address [address] [place] [address] Care Team Providers Care Shell Trim Tool Setter Name Role Phone Jace Blake MD Primary Care Provider Provider, Conversion Unavailable Unavaila Andres Topete MD Unavailable [phone] Aki Ross MD Unavailable [phone] Ursula Boo MD Unavailable [phone] Rocio Youssef PA-C Unavailable Emeterio Valencia MD Unavailable Allergies No known active allergies Medications Medication Sig Dispensed Refills Start Date End Date Status Probiotic Product (PROBIOTIC-10 PO) Take by mouth. Act obey Multiple Vitamin tablet Take 1 tablet by mouth daily. Active loperamide (IMODIUM A-D) 2 MG tablet Take 2 tablets (4 mg total) by mouth. Active gabapentin (NEURONTIN) 800 MG tablet Take 1 tablet (800 mg total) by mouth nightly. 01/08/2022 Active famotidine (PEPCID) 20 MG tabletIndications :Dyspepsia TAKE 1 TABLET (20 MG TOTAL) BY MOUTH 2 (TWO) TIMES A DAY NEEDED FOR INDIGESTION OR HEARTBURN. 180 tablet 3 09/04/2022 Active apixaban (Eliquis) 5 MG tabletIndications :Atrial fibrillation, unspecified type (HCC) Take 1 tablet (5 mg total) by mouth 2 (two) times a day. 5 tablet 02/04/2023 Active empagliflozin (JARDIANCE) 10 MG tabletIndications :Chronic diastolic heart failure (HCC) Take 1 tablet (10 mg total) by mouth every morning. Do not start before May 30, 2023. 90 tablet 1 05/30/2023 Active zolpidem (AMBIEN) 10 MG tablet Take 1 tablet (10 mg total) by mouth nightly as needed. 10/28/2022 Active losartan (COZAAR) 25 MG tablet Take 1 tablet (25 mg total) by mouth daily. 09/28/2023 Active atorvastatin (LIPITOR) 40 MG tabletIndications :Dyslipidemia TAKE 1 TABLET DAILY 90 tablet 4 03/28/2024 Active dexlansoprazole (DEXILANT) 60 MG capsuleIndication s:Gastroesophagea l reflux disease Take 1 capsule (60 mg total) by mouth daily. 90 capsule 3 03/30/2024 Active metoPROLOL SUCCINATE (TOPROL-XL) 100 MG 24 hr tabletIndications :Gastroesophageal reflux disease Take 1 tablet (100 mg total) by mouth daily. 90 tablet 3 07/07/2024 Active Breo Ellipta 100-25 MCG/ACT inhaler Inhale 1 puff. 07/05/2024 Active PARoxetine (PAXIL) 20 MG tablet Take 1 tablet (20 mg total) by mouth. 07/01/2024 Active furosemide (LASIX) 20 MG tablet Take 20 mg by mouth daily. 11/28/2024 Active torsemide (DEMADEX) 20 MG tablet Take 20 mg by mouth. 10/18/2024 Active umeclidinium-anastacio nterol (ANORO ELLIPTA) 62.5-25 MCG/ACT inhaler Inhale 1 puff daily. 10/06/2024 Active potassium chloride (KLOR-CON) 10 MEQ tablet Take 1 tablet by mouth daily. 11/15/2024 Active rifAXIMin (XIFAXAN) 550 MG tabletIndications :Irritable bowel syndrome with diarrhea Take 1 tablet (550 mg total) by mouth 3 (three) times a day. 42 tablet 12/15/2024 Active potassium chloride (K-TAB) 20 MEQ CR tablet TAKE 1 TABLET BY MOUTH EVERY DAY FOR 5 DAYS 04/26/2024 Discontinue d(Dose adjustment) Active Problems Problem Noted Date Diagnosed Date Dilated bile duct 05/28/2023 06/11/2023 Restless legs 04/08/2023 04/08/2023 Pacemaker end of life 01/02/2023 Gastroesophageal reflux disease with esophagitis 06/24/2022 Benign colonic polyp 04/16/2022 Chronic obstructive pulmonary disease 04/16/2022 Crohn's disease of large intestine 04/16/2022 Cobalamin deficiency 04/16/2022 Depressive disorder 04/16/2022 Epistaxis 04/16/2022 Impaired fasting glucose 04/16/2022 Osteopenia 04/16/2022 Shortness of breath 04/16/2022 Vitamin D deficiency 04/16/2022 Lupus 04/16/2022 Sjogren's syndrome 04/16/2022 Systolic heart failure 04/16/2022 Chronic diastolic heart failure 04/16/2022 Overview (04/16/2022): A[facility] Irritable bowel syndrome 04/16/2022 Orthostatic hypotension 01/30/2022 UTI (urinary tract infection) 01/05/2022 Overview (04/16/2022): Last Assessment & Plan: Leukocytosis and e coli in UC even though no more than 100,000 Rocephin Syncope and collapse 12/30/2021 Overview (04/16/2022): Last Assessment & Plan: Suspected to have been from orthostasis in the setting of severe anemia and suspected GI bleed. Now has some continued dizziness. Some of this may be orthostatic or from low blood pressure though not orthostatic here today. Has significant deconditioning. Continue present medications with blood pressure parameters and as tolerated. Continue physical therapy and Occupational Therapy. [place] in February if her physical condition allows. We discussed issues concerning travel by plane or car. She will see her bromination equipment operator at [facility] as soon as she can when she returns. In the interim if she has other issues she may call here to be seen prior to leaving. Chronic renal impairment, stage 3a 10/23/2021 Overview (04/16/2022): Last Assessment & Plan: Labile creatinine values. Continue to follow with primary care physicians. Interstitial lung disease 10/23/2021 Overview (04/16/2022): Last Assessment & Plan: Evaluated at [facility] and her interstitial lung disease was not felt to be significantly contributing to her dyspnea and other clinical conditions. Some follow-up CT scans and pulmonary function studies were recommended. Class 1 obesity due to exces s calories with serious comorbidity and body mass index (BMI) of 33.0 to 33.9 in adult 12/27/2020 Overview (07/15/2021): Last Assessment & Plan: Weight loss encouraged. I offered cardiac rehabilitation but the patient hopes to do some mild exercise on her own. Class 1 obesity due to exces s calories with serious comorbidity and body mass index (BMI) of 33.0 to 33.9 in adult 12/27/2020 Overview (04/16/2022): Last Assessment & Plan: The patient is asked to make an attempt to improve diet and exercise patterns to aid in medical management of this problem. Multiple nodules of lung 10/25/2020 Anemia 10/23/2020 Overview (04/16/2022): Last Assessment & Plan: Suspicion of recent melena, EGD, colonoscopy and capsule endoscopy. Some polyps removed. Anemia improved. She will follow with GI and also follows with hematology. Last Assessment & Plan: HGB was 13 four months ago S/p prbc x1 PPI No overt GIB S/p EGD-->hiatel hernia, c-scope-->no active bleeding GI following monitor Assessment & Plan (04/16/2022 8:42 AM EDT): Recent hospitalization as below with recent upper endoscopy and colonoscopy hemoglobin 9.5 we will recheck with iron studies. No significant signs of overt GI bleeding or any symptomatic anemia. We will continue daily PPI for heartburn I recommend she follow-up with hematology locally as well ( she has appt upcoming). Should symptoms return would recommend work-up. I have also given her 3 separate stool cards to mail back to me and I will check Atrioventricular block 10/23/2020 Overview (04/16/2022): Last Assessment & Plan: Pacemaker dependent. Medtronic device. Follows remotely through [facility]. Last Assessment & Plan: Dual-chamber Medtronic pacemaker. Routinely follows through [facility] bromination equipment operator. Interrogated here with recent syncopal episode. Normal function. Occasional mode switching in atrial high rates without ventricular high rates, 1.4% mode switching.? Ventricular runs. No tracings of that available for my review. We will continue to monitor remotely for now through her [facility] bromination equipment operator. Dilated cardiomyopathy 10/23/2020 Overview (07/15/2021): Last Assessment & Plan: Some recent left ventricular dysfunction. Some consideration of repeat attempted coronary sinus lead for SLEDGER. This was unsuccessful in the past. She is to discuss and review this option with [facility] when she returns there late February of this year. For now continue present Entresto and beta-greg and diuretic. Obstructive sleep apnea 10/23/2020 Overview (04/16/2022): Last Assessment & Plan: Continue CPAP. Last Assessment & Plan: Has not been able to tolerate CPAP in the past due to claustrophobia. Recommend other alternatives to pulmonary. Dilated cardiomyopathy 10/23/2020 Overview (04/16/2022): Last Assessment & Plan: Left ventricular ejection fraction normal. I agree with the recent decrease in the metoprolol succinate and continuation of present Entresto. Present parameters of holding for systolic blood pressure less than 110 seems appropriate. Could consider decreasing Entresto to a half a tablet twice a day. Chronic systolic heart failure 10/03/2020 Overview (07/15/2021): EF 60% by echo Nov. Last Assessment & Plan: Recent BNP was normal. Clinical volume status appears good. For now continue present medications. See discussion concerning hypertension. Abnormal liver function tests 08/30/2020 Overview (04/16/2022): Last Assessment & Plan: Apparently was also to follow with GI. History of fatty liver. Last Assessment & Plan: Noted to have elevated LFTs Hold atorvastatin Labs pending Abnormal chest CT 08/28/2020 Primary hyperparathyroidism 01/31/2020 Autoimmune disorder 02/18/2019 Overview (07/15/2021): Last Assessment & Plan: To follow-up rheumatology status [place]. Apparently has lupus and Sjogren's syndrome. Autoimmune disorder 02/18/2019 Overview (04/16/2022): Last Assessment & Plan: Diagnoses has been uncertain. Has seen rheumatology of [place]. History of depression 02/06/2019 Congestive heart failure 02/06/2019 Benign essential hypertension 02/06/2019 Osteoarthritis 01/14/2019 Spinal stenosis of lumbar region 01/14/[address] scan, lumbar spine 11/11/2018 Abnormal computed tomography scan 11/11/2018 Paraparesis 10/07/2018 Weakness of both lower extremities 10/07/2018 Overview (07/15/2021): Last Assessment & Plan: Some neuropathy and intolerance to medications. Has seen neurology. Follow-up with neurology and/or neurosurgery for back issues. Other hyperlipidemia 10/06/2018 Overview (04/16/2022): Last Assessment & Plan: With some coronary disease and vascular disease LDL goal should be lower. Would recommend if tolerated to increase atorvastatin to 40 mg with PCP and other follow-up. Last Assessment & Plan: Presently on atorvastatin. I recommend follow-up lipids and liver function studies. Had transient liver function abnormalities, alkaline phosphatase, when hospitalized. Anxiety 10/06/2018 GERD (gastroesophageal reflux disease) 8 Assessment & Plan (06/24/2022 10:52 AM EDT): Given her refractory symptoms she will take famotidine at night prior to dinner and avoid postprandial recumbency she will continue Dexilant in the morning. Assessment & Plan (04/16/2022 8:43 AM EDT): Taking Dexilant daily still having some refractory symptoms at night I suggested taking a nighttime dose of famotidine and avoidance of postprandial recumbency. Recent endoscopy as below Insomnia 10/06/2018 Iron deficiency 10/06/2018 Assessment & Plan (06/24/2022 10:51 AM EDT): We will proceed with capsule endoscopy as the patient is amenable. Risk options and benefits discussed in detail verbalized understanding. Single vessel coronary artery disease 10/06/2018 Neuropathy 10/06/2018 Neuropathy 09/29/2018 Coronary arteriosclerosis in [place] artery 03/01 Coronary artery disease invo lving [place] coronary artery of [place] heart with angina pectoris 03/01/2018 Overview (07/15/2021): Last Assessment & Plan: Mild to moderate by past catheterization 2015. No ischemia 2018 stress test. Cardiac MRI did not suggest ischemia at [facility]. No definite angina. Continue medical therapy and control of risk factors. See discussion concerning lipids. Coronary artery disease invo lving [place] coronary artery of [place] heart with angina pectoris 03/01/2018 Overview (04/16/2022): Last Assessment & Plan: Mild to moderate by cardiac catheterization 2015 and no ischemia by 2018 stress test. Cardiac MRI did not suggest ischemia more recently. No anginal type symptoms. Continue long-term control of cardiovascular risk factors. No aspirin. On Eliquis. 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 CHF (congestive heart failure) 04/30/2017 Dyslipidemia 04/30/2017 Back pain 03/26/2017 Stenosis of left carotid artery 12/03/2015 Overview (04/16/2022): Last Assessment & Plan: By history apparently has a 70% stenosis of her carotids, details unknown. Was recommended that she stay on aspirin plus Eliquis. Increased risk of bleeding discussed. She will follow with vascular surgery up at [facility]. Last Assessment & Plan: Stable left carotid stenosis by recent ultrasound. No TIA or strokelike symptoms or acute findings on head CT. Continue long-term control of cardiovascular risk factors and follow with her other physicians. [facility] vascular Memory impairment 12/02/2015 Memory loss 12/02/2015 Overview (07/15/2021): Last Assessment & Plan: Differential: - seizure - stroke - tia - migraine - TGA Assessment/plan: 1. Episode - m/l TGA - eeg normal, exam non focal. 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 HTN (hypertension) 01/19/2015 Overview (04/16/2022): Last Assessment & Plan: Labile. Will be difficult to control the blood pressure any better. I would hesitate to increase her Entresto at this time. Continue to monitor at home. Last Assessment & Plan: Blood pressure if anything tending low. See discussion under congestive heart failure and cardiomyopathy concerning medications. Continue to wear compression stockings. Continue to drink plenty of water with modest sodium intake. 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 Will get follow up labs. Will get [facility] (Dr. Ecsalera at [facility] in [place], [place]). Last Assessment & Plan: GI evaluation was overall unrevealing. Hemoglobin tending better. Continue iron and hematology follow-up. Irritable bowel syndrome with diarrhea 5 Overview (07/15/2021): Last Assessment & Plan: Recent surgery Seen by surgery No acute intervention needed CT without contrast no acute finding Improving cdif neg Supportive care Cleared for dc Chronic combined systolic an d diastolic congestive heart failure 09/28/2014 Overview (04/16/2022): EF 60% by echo Nov. Last Assessment [...] medications for now. See discussion under cardiomyopathy. 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 Had good response to night pride. Presently on Entresto and followed by the advanced heart failure program at [facility] when she returns [place]. Added automatically from request for surgery [id number] Moderate by lore Lemon Delbert: 66 mmHg peak systolic Last Assessment & Plan: Has been followed at the advanced heart failure program at [facility] and Dr. Coppola. 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 Has continued on medications as blood pressure allows. Thyroid nodule 01/25/2014 Overview (07/15/2021): Last Assessment & Plan: BL thyroid nodules - F/u with endocrinology as outpatient IMPRESSION: Bilateral thyroid nodules. Recommend ultrasound guided fine needle aspiration of dominant nodule in the right lobe. Paroxysmal atrial fibrillation 04/14/2013 Overview (04/16/2022): Last Assessment & Plan: Patient with some possible occasional symptoms of arrhythmias. She continues with remote monitoring of her device through [facility]. Is maintained on beta-blockers and anticoagulation with Eliquis. Atrial fibrillation Last Assessment & Plan: Infrequent spells on pacemaker interrogation of atrial fibrillation without rapid ventricular rates. Continue decrease metoprolol and continue Eliquis with follow-up of hemoglobin and for any symptoms or signs of bleeding with others. Resolved Problems Problem Noted Date Diagnosed Date Resolved Date On anticoagulant therapy 05/11/2017 A-fib 04/30/2017 06/22/2020 Encounters Date Type Department Care Team Description 12/15/2024 9:00 AM EST Office Visit [facility] [address] [facility] [address] [place] [phone] Ursula Boo MD Abnormal LFTs (Primary Dx); Irritable bowel syndrome with diarrhea; Abnormal serum enzyme level, unspecified 12/15/2024 Telephone [facility] [address] [place] [phone] Ursula Boo MD Prior Authorization (XIFAXAN 550MG TABLETS) 12/01/[address] [place] [address] Provider, Cardiology 11/01/2024 Transcribe Orders [facility] [address] [place] [id number] Unknown 10/27/[address] [place] [address] Aki Ross MD 10/27/2024 Scanned Document [address] [phone] Ursula Boo MD 10/25/2024 Transcribe Orders [facility] [address] [place] [id number] Unknown Elevated liver function tests (Primary Dx); Acquired dilation of bile duct 10/07/2024 Scanned Document [address] [place] [address] Provider, Cardiology from Last 3 Months Immunizations Name Administration Dates Next Due Covid-19 Vaccine, Unspecified 10/20/2023 ,09/01/2023,09/06/2022,05/27 Covid-19 mRNA Primary Series Vaccine - Moderna 0.5 mL Full Dose 11/26/2021,07/17/2021,02/06/2021,01/19,01/08/2021,12/22/2020 Influenza (AFLURIA/FLUZONE) Inactivated/Split Quadrivalent with Preservative IM 07/30/2021,09/11/2020,08/23/2019,09/12 Influenza High-Dose Trivalen t,(FLUZONE HIGH-DOSE), Perservative Free IM 0.5 mL 65 years and older 07/17/2020 Influenza Inactivated/Split Preservative Free IM 07/30/2021,09/12/2018 Influenza Virus Trivalent Sp lit Vaccine (MDV) IM 08/15/2024,08/24/2023,08/20/2022,07/30,09/12/2018 Influenza Whole 08/29/2019 Influenza, Quadrivalent 08/23/2019 Influenza, Quadrivalent (FLU AD) Adjuvanted Preservative Free IM 65 years and older 09/11/2020 Influenza, Unspecified 09/11/2023,2021,08/23/2021,07/17,07/17/2020,08/29/2019,10/04/2012 Pneumococcal Conjugate 13-Valent 09/11/2020,06/24 Pneumococcal Polysaccharide 23-Valent 09/12/2018 ,10/04/2012,10/04/2012 Pneumococcal, Unspecified 05/27/2022,04/23/2021 RSV, Recombinant, Protein Cruz bunit RSV Prefusion F (AREXVY), Adjuvant Recon 0.5 mL PF 10/05/2023 Zoster Vaccine Live/Attenuat ed (Zostavax) 07/30/2021 Zoster,unspecified 05/27/2022 Family History Medical History Relation Name Comments Stroke Father Cancer Maternal Grandmother Cancer Mother Relation Name Status Comments Father Maternal Grandmother Mother Social History Tobacco Use Types Packs/Day Years Used Date Smoking Tobacco: Former Cigarettes Q uit: 2001 Smokeless Tobacco: Never Tobacco Cessation:Counseling Given: Not Answered Alcohol Use Standard Drinks/Week Comments Yes 0 (1 standard drink = 0.6 oz pur e alcohol) once a week Sex and Gender Information Value Date Recorded Sex Assigned at Female 07/21/2023 8:52 AM EDT Gender Identity Female 07/21/2023 8:52 AM EDT Sexual Orientation Heterosexual (straight) 07/21 8:52 AM EDT Last Filed Vital Signs Vital Sign Reading Time Taken Comments Blood Pressure 118/74 12/15/2024 9:07 AM EST Pulse 70 12/15/2024 9:07 AM EST Temperature 35.6 ??C (96.1 ??F) 07/21/2023 9:17 AM ED T Respiratory Rate 20 07/21/2023 1:02 PM EDT Oxygen Saturation 97% 07/21/2023 1:02 PM EDT Inhaled Oxygen Concentration - - Weight 94.3 kg (208 lb) 12/15/2024 9:07 AM EST Height 182.9 cm (6') 12/15/2024 9:07 AM EST Body Mass Index 28.21 12/15/2024 9:07 AM EST Plan of Treatment Upcoming Encounters Date Type Department Care Team (Late st Contact Info) Description 03/02/2025 1:40 PM EDT Office Visit [facility] [place] [address] [place] [address] Nico Bailey MD [address] [place] [address] 03/22/2025 1:30 PM EDT Office Visit [address] [phone] Ursula Boo MD [address] [place] [phone] 05/04/2025 10:00 AM EDT Office Visit [facility] [place] [address] [phone] Aki Ross MD [address] [place] [address] [id number] Health Maintenance Due Date Last Done Comments DTaP/Tdap/Td Vaccines (1 - Tdap) 1967 DXA Bone Density (Females,Ages 65 and older) 2013 Zoster (Shingles) Vaccine (1 of 2) 09/24/2021 05/27/2022, 07/30/2021 Pneumococcal Vaccines 50+ Completed 2021, 04/23/2021, 09/11/2020, Additional history exists Hepatitis C Virus Screening Completed 04/09/2023 RSV Vaccine 60 years and older and Patients Completed 10/05/2023 COVID-19 Vaccine Completed 08/15/2024, , 09/01/2023, Additional history exists Influenza Vaccine Completed 08/15/2024, , 08/24/2023, Additional history exists Hepatitis B Vaccines Aged Out No long er eligible based on patient's age to complete this topic Medical Devices Implanted Type Area Safe And Vault Installer Device Identifier Shelf Expiration Date Model / Serial / Lot Medtronic 5076 Capsurefix Novus [id number] Implanted:05/2012 (Quantity not on file) Lead Medtronic 5076 CAPSUREFIX NOVUS / [id number] / Medtronic 5076 Capsurefix Novus [id number] Implanted:05/2012 (Quantity not on file) Lead Medtronic 5076 CAPSUREFIX NOVUS / [id number] / [id number] Pacemaker Cardiac 7.4mm 50.8x46.6mm Shoshana Xt Dr Philip Arnold - [id number] Implanted:Qty : 1 on 07/21/2023 by Nigel Moncada MD at [facility] Pacemaker Left: Chest Wall MEDTRONIC MINIMALLY INVASIVE T [id number] 12/06/2024 [id number] / [id number] / Explanted Type Area Safe And Vault Installer Device Identifier Shelf Expiration Date Model / Serial / Lot [id number] Pacemaker Cardiac 7.5mm 52.3x45.4mm Renetta Gonzalez Atr Vntrc-04/29/2012 Implanted:05/2012 (Quantity not on file) Explanted:Qty: 1 on 07/21/2023 by Nigel Moncada MD Pacemaker MEDTRONIC MINIMALLY INVASIVE T [id number] / [id number] / Procedures Procedure Name Priority Date/Time Associated Diagnosis Comments HEPATITIS C VIRUS (HCV) ANTIBODY Routine 04/09/2023 2:02 PM EDT from Last 3 Months or Most Recently Relevant to Health Maintenance Results * HEPATITIS C VIRUS (HCV) ANTIBODY (04/09/2023 2:02 PM EDT) Hepatitis C Antibody NON-REACT OBEY NON-REACT OBEY [employer] Hepatitis C Antibody (s/co) 0.15 <1.00 [employer] Comment: HCV antibody was non-reactive. There is no laboratory evidence of HCV infection. In most cases, no further action is required. However, if recent HCV exposure is suspected, a test for HCV RNA (test code 01944) is suggested. For additional information please refer to http://education.[employer]/faq/DUD90a0 (This link is being provided for informational/ educational purposes only.) 04/09/2023 2:02 PM EDT 04/09/2023 2:12 PM EDT Narrative [facility] - 04/24/2023 9:00 AM EDT FASTING:YES FASTING: YES Ursula Boo MD LAB BLOOD ORDERABLES [facility] [address] [place] [phone] from Last 3 Months or Most Recently Relevant to Health Maintenance Advance Directives * Full Code (Latest Code Status on File) Date Activated Date Inactivated Comments 07/21/2023 9:00 AM Care Teams Shell Trim Tool Setter Relationship Specialty Start Date End Date Jace Blake MD [address] [place] [address] PCP - General Psychiatry, General 05/04/17 Rachid Robles MD 04/27/17 Andres Lakhani MD [address] [place] [address] [employer] Card[facility] 07/08/19 Aki Ross MD [address] [place] [phone] Primary [employer] Cardiovascular Disease 07/08/19 Ursula Boo MD [address] [place] [address] Gastroenterology 06/07/20 Rocio Youssef PA-C [address] [place] [phone] Physician Adult Day Care Worker Gastroenterology 06/07/20 Emeterio Valencia MD [address] [place] [address] Clinician Pulmonary Medicine 06/20/20
--- OUTSIDE RECORDS SUMMARY | 2024-12-19 16:46 | XMS_ITS | Encounter Summary ---
Author Organization [facility] Address [address] [place] [phone] Care Team Providers Care Director Merit System Name Role Phone Miguel Angel Blakey Primary Care Provider [phone] Encounter Details Date Type Department Care Team (Late st Contact Info) Description 01/01/2024 Scanned Document [facility] at [facility], [address] [place] [address] Will Priest MD [address] [place] [phone] Social History Tobacco Use Types Packs/Day Years [...] Follow Up Congestive Heart Failure Program at [address] [place] [address] [facility] [address] [place] [address] Diana Coppola MD [address] [place] [phone] 06/07/2025 10:30 AM EDT Follow Up Neuromuscular Medicine at [facility] [address] [place], [place] [address] Silvestre Maldonado MD [address] [place] [phone] 10/05/2025 12:30 PM EST Appointment PULMONARY FUNCTION LABORATORY - [address] [address] Aparna Chang MD [address] [place] [phone] [facility], Pft Walk 10/05/2025 1:00 PM EST Appointment PULMONARY FUNCTION LABORATORY - [address] [address] Aparna Chang MD [address] [place] [phone] 1, Pft Procedure Room 10/05/2025 2:00 PM EST Office Visit [facility] [address] [phone] Aparna Chang MD [address] [place] [phone] documented as of this encounter Procedures Procedure Name Priority Date/Time Associated Diagnosis Comments PACEMAKER INTERROGATION-IN OFFICE Routine 12/31/2023 12:57 PM EST documented in this encounter Results * Pacemaker Interrogation-In Office (12/31/2023 12:57 PM EST) Anatomical Region Laterality Modality Chest Other us Wlil Priest MD CAR DEVICE INTER ORDERABLES Fin al Result documented in this encounter Visit Diagnoses Not on filedocumented in this encounter Additional Health Concerns Assessment Noted Time PHQ-9 Depression Total Score: 0 12/31/19 24 11:03 AM EST documented as of this encounter Care Teams Director Merit System Relationship Specialty Start Date End Date Jace Blake DO [address] [place] [address] PCP - General Family Medicine 08/01/14 documented as of this encounter
--- OUTSIDE RECORDS SUMMARY | 2024-12-19 16:46 | XMS_ITS | Encounter Summary ---
Author Organization [facility]ly [facility] Address [address] [place] [address] Care Team Providers Care Director Learning And Development Name Role Phone Jace Blake MD Primary Care Provider [phone] Provider, Rachid GARCIA Unavailable Unavaila Andres Topete MD Unavailable [phone] Aki Ross MD Unavailable [phone] Ursula Boo MD Unavailable Rocio Youssef PA-C Unavailable Emeterio Valencia MD Unavailable Encounter Details Date Type Department Care Team (Late st Contact Info) Description 04/01/2019 Scanned Document [facility] Heart & Vascular [place] [address] [place] [address] Provider, External, [address] [place] [address] Social History Tobacco Use Types Packs/Day Years [...] EDT Office Visit [facility] Dermatology [place] 35 [place] [address] Nico Bailey MD 35 [place] [address] 03/22/2025 1:30 PM EDT Office Visit [facility] [address] [place] [phone] Ursula Boo MD [address] [place] [address] 05/04/2025 10:00 AM EDT Office Visit [facility] Heart & Vascular [place] 45 [facility] 102 [place] [address] Aki Ross MD [address] [place] [address] documented as of this encounter Visit Diagnoses Not on filedocumented in this encounter Care Teams Director Learning And Development Relationship Specialty Start Date End Date Jace Blake MD [address] [place] [address] PCP - General Psychiatry, General 05/04/17 Rachid Robles MD 04/27/17 Andres Lakhani MD [address] [place] [address] Portable Sawmill Operator Cardiology 07/08/19 Aki Ross MD [address] [place] [address] [phone] Primary Portable Sawmill Operator Cardiovascular Disease 07/08/19 Ursula Boo MD [address] [place] [address] Gastroenterology 06/07/20 Rocio Youssef PA-C [address] [address] Physician Physical Chemist Gastroenterology 06/07/20 [place] [address] [address] Clinician Pulmonary Medicine 06/20/20 documented as of this encounter
--- OUTSIDE RECORDS SUMMARY | 2024-12-19 16:46 | XMS_ITS | Encounter Summary ---
Author Organization [facility] Address [address] [place] [address] Care Team Providers Care Cement Finisher Name Role Phone Jace Blake MD Primary Care Provider [phone] Provider, Conversion Unavailable Unavaila Andres Topete MD Unavailable [phone] Aki Ross MD Unavailable [phone] Ursula Boo MD Unavailable Rocio Youssef PA-C Unavailable Emeterio Valencia MD Unavailable Encounter Details Date Type Department Care Team (Late st Contact Info) Description 10/07/2024 Scanned Document [facility] Heart & Vascular [place] [address] [place] [phone] Provider, Cardiology Social History Tobacco Use [...] Visit [facility] Dermatology [place] 35 [place] [address] Nico Bailey MD [address] [place] [address] 03/22/2025 1:30 PM EDT Office Visit [facility] [address] [place] [phone] Ursula Boo MD [address] [place] [address] 05/04/2025 10:00 AM EDT Office Visit [facility] Heart [facility] [place] [address] [phone] Aki Ross MD [address] [place] [address] documented as of this encounter Visit Diagnoses Not on filedocumented in this encounter Care Teams Cement Finisher Relationship Specialty Start Date End Date Jace Blake MD [address] [place] [address] PCP - General Psychiatry, General 05/04/17 ProviderRachid MD 04/27/17 Andres Lakhani MD [address] [place] [address] Sustainability Officer Cardiology 07/08/19 Aki Ross MD [address] [place] [address] [phone] Primary Sustainability Officer Cardiovascular Disease 07/08/19 Ursula Boo MD [address] [place] [address] Gastroenterology 06/07/20 Rocio Youssef PA-C [address] [address] Physician Vp Business Development Gastroenterology 06/07/20 Emeterio Valencia MD [address] [address] Clinician Pulmonary Medicine 06/20/20 documented as of this encounter
--- OUTSIDE RECORDS SUMMARY | 2024-12-19 16:46 | XMS_ITS | Encounter Summary ---
Author Organization [facility] Address [address] [place] [address] Care Team Providers Care Peoplesoft Analyst Name Role Phone Jace Blake MD Primary Care Provider Provider, Rachid GARCIA Unavailable Unavaila Andres Topete MD Unavailable [phone] Aki Ross MD Unavailable [phone] Ursula Boo MD Unavailable Rocio Youssef PA-C Unavailable [phone] Emeterio Valencia MD Unavailable Encounter Details Date Type Department Care Team (Late st Contact Info) Description 10/27/2024 Scanned Document [facility] [address] [place] [phone] Ursula Boo MD [address] [place], [place] 5660[address] Social History Tobacco Use Types Packs/Day Years [...] [facility] Dermatology [address] [address] Nico Bailey MD [address] [place] [address] 03/22/2025 1:30 PM EDT Office Visit [address] [address] Ursula Boo MD [address], [place] [address] 05/04/2025 10:00 AM EDT Office Visit [facility] Heart & Vascular [place] [address] [address] Aki Ross MD [address] [place] [address] documented as of this encounter Visit Diagnoses Not on filedocumented in this encounter Care Teams Peoplesoft Analyst Relationship Specialty Start Date End Date Jace Blake MD [address] [place] [address] PCP - General Psychiatry, General 05/04/17 Rachid Robles MD 04/27/17 Andres Lakhani MD [address] [place] [address] Bus Greaser Cardiology 07/08/19 Aki Ross MD [address] [place] [address] [place] [address] Primary Bus Greaser Cardiovascular Disease 07/08/19 Ursula Boo MD [address] [place] [address] Gastroenterology 06/07/20 Rocio Youssef PA-C [address] [place] [address] Physician Hip Hop Dance Instructor Gastroenterology 06/07/20 Emeterio aVlencia MD [address] [place] [address] Clinician Pulmonary Medicine 06/20/20 documented as of this encounter
--- OUTSIDE RECORDS SUMMARY | 2024-12-19 16:47 | XMS_ITS | Encounter Summary ---
Author Organization Former[facility] Address [address] [place] [address] Care Team Providers Care Marine Equipment Design Engineer Name Role Phone Jace Blake MD Primary Care Provider Provider, Conversion Unavailable Unavaila Andres Topete MD Unavailable [phone] Aki Ross MD Unavailable [phone] Ursula Boo MD Unavailable [phone] Rocio Youssef PA-C Unavailable Emeterio Valencia MD Unavailable Encounter Details Date Type Department Care Team ([facility] st Contact Info) Description 10/27/2024 Telephone [facility] Heart & Vascular [place] [address] [address] Aki Ross MD [address] [place] [address] Social History Tobacco Use Types Packs/Day [...] Telephone Encounter - Lucie Smith RN - 11/30/2024 11:36 AM EST Have not received records from patient's primary care. Reached out to pt, she has RSV and was retaining fluid. She has no swelling, but gained 4lbs in 3 days- Her renal doctor restarted her on lasix,she thinks 20mg daily. She just started it today. She is seeing [place] HF service, Dr. Coppola on 12/28. Offered sooner appt with [facility], she is going to wait and see how she responds to the lasix. She will callback if no improvement/ needs to be seen sooner. * Telephone Encounter - Sandra Craig MA - 11/28/2024 10:00 AM EST Patient was seen at [place] [facility]. Dx with RSV possible pulmonary issues. PCP will faxed ED report and chest Xray. Please advise * Telephone Encounter - Leslie Sanchez RN - 10/27/2024 2:39 PM EST Per SK: As noted in my last office note, may decrease and then stop torsemide as able. Continue tomonitor potassium. She may need less replacement if she does indeed stop torsemide. RN called patient, she is agreeable to stopping torsemide. Advised her to continue on her oral potassium supplement for now, can consider stopping depending on potassium level in the future. She verbalized understanding, is getting labs drawn per her PCP tomorrow. Also advised she call the office back if she develops new shortness of breath / weight gain / swelling after stopping torsemide. * Telephone Encounter - Leslie Sanchez RN - 10/27/2024 1:36 PM EST Spoke to patient, she reports her potassium has been low recently, she was hospitalized at [facility] to receive IV potassium. She reports her potassium got as low as 2.7, eventually improving to3.7, most recent potassium was 3.2 last week. She will be getting repeat labs tomorrow ordered by her PCP. She is wondering if her torsemide 10 mg daily could be decreased / discontinued, this was mentionedin last office note by SK on 05/02 given her history of low potassium. Patient denies swelling / shortness of breath, weight is stable. She confirmed she is currently taking potassium chloride 10 meq BID. Sent to [facility] for review. * Telephone Encounter - Louann Meza - 10/27/2024 1:34 PM EST PCP thinks Torsemide is messing with Potassium. She needs to get infusions. She doesn't know if sheneeds to lower it or if her doctor needs to see her. documented in this encounter Plan of Treatment Upcoming Encounters Date Type Department Care Team (Late st Contact Info) Description 03/02/2025 1:40 PM EDT Office Visit [facility] Dermatology [address] [phone] Nico Bailey MD [address] [place] [address] 03/22/2025 1:30 PM EDT Office Visit [facility] [address] [place] [phone] Ursula Boo MD [address] [place] [address] 05/04/2025 10:00 AM EDT Office Visit [facility] Heart & Vascular [place] [address] [address] Aki Ross MD [address] [place] [phone] documented as of this encounter Visit Diagnoses Not on filedocumented in this encounter Care Teams Marine Equipment Design Engineer Relationship Specialty Start Date End Date Jace Blake MD [address] [place] [address] PCP - General Psychiatry, General 05/04/17 Rachid Robles MD 04/27/17 Andres Lakhani MD [address] [place] [address] Lcpc Cardiology 07/08/19 Aki Ross MD [address] [place] [address] Primary [facility] Cardiovascular Disease 07/08/19 Ursula Boo MD [address] [place] [address] Gastroenterology 06/07/20 Rocio Youssef PA-C [address] [place] [address] Physician Headhunter Gastroenterology 06/07/20 Emeterio Valencia MD [address] [place] [address] Clinician Pulmonary Medicine 06/20/20 documented as of this encounter
--- OUTSIDE RECORDS SUMMARY | 2024-12-19 16:47 | XMS_ITS ---
Author Organization [facility] Address [address] [place] [address] Care Team Providers Care Ammunition Storekeeper Name Role Phone Jace Blake MD Primary Care Provider Provider, Conversion Unavailable Unavaila Andres Topete MD Unavailable [phone] Aki Ross MD Unavailable Ursula Boo MD Unavailable [phone] Rocio Youssef PA-C Unavailable Emeetrio Valencia MD Unavailable Active Problems Problem Noted Date Diagnosed Date [...] diastolic heart failure 04/16/2022 Overview (04/16/2022): Aki [facility] [place] Irritable bowel syndrome 04/16/2022 Orthostatic hypotension 01/30/2022 [...] The patient's plan is to return up [place] permanently and they hope to travel in February if her physical condition allows. We discussed issues concerning travel by plane or car. She will see her house principal at [place] as soon as she can when she returns. In the interim if she has other issues she may call here to be seen prior to leaving. Chronic renal impairment, stage 3a 10/23/2021 Overview (04/16/2022): Last Assessment & Plan: Labile creatinine values. Continue to follow with primary care physicians. Interstitial lung disease 10/23/2021 Overview (04/16/2022): Last Assessment & Plan: Evaluated at [place] and her interstitial lung disease was not [...] Pacemaker dependent. Medtronic device. Follows remotely through [facility]. Last Assessment & Plan: Dual-chamber Medtronic pacemaker. Routinely follows through [facility] house principal. Interrogated here with recent syncopal episode. Normal function. Occasional mode switching in atrial high rates without ventricular high rates, 1.4% mode switching.? Ventricular runs. No tracings of that available for my review. We will continue to monitor remotely for now through her up [facility] house principal. Dilated cardiomyopathy 10/23/2020 Overview (07/15/2021): Last Assessment & Plan: Some recent left ventricular dysfunction. Some consideration of repeat attempted coronary sinus lead for [facility]. This was unsuccessful in the past. She is to discuss and review this option with [facility] when she returns there late February of [...] & Plan: To follow-up rheumatology status up [place]. Apparently has lupus and Sjogren's syndrome. Autoimmune disorder 02/18/2019 Overview (04/16/2022): Last Assessment & Plan: Diagnoses has been uncertain. Has seen rheumatology of [place]. History of depression 02/06/2019 Congestive heart failure [...] Neuropathy 10/06/2018 Neuropathy 09/29/2018 Coronary arteriosclerosis in [place] artery 03/01 Coronary artery disease invo lving [place] coronary artery of [place] heart with angina pectoris 03/01/2018 Overview (07/15/2021): Last Assessment & Plan: Mild to moderate by past catheterization 2016. No ischemia 2018 stress test. Cardiac MRI did not suggest ischemia at [place]. No definite angina. Continue medical therapy and control of risk factors. See discussion concerning lipids. Coronary artery disease invo lving [place] coronary artery of [place] heart with angina pectoris 03/01/2018 Overview (04/16/2022): Last Assessment & Plan: Mild to moderate by cardiac catheterization 2016 and no ischemia by 2018 stress test. Cardiac MRI did not suggest ischemia more recently. No anginal type symptoms. Continue long-term control of cardiovascular risk factors. No aspirin. On Eliquis. Chronic atrial fibrillation 11/10/2017 Cardiac pacemaker in situ 07/02/2017 S/P biventricular cardiac pacemaker procedure S/P ablation of atrial fibrillation 04/30/2017 snf current use of anticoagulant therapy 0 04/30/2017 [...] will follow with vascular surgery up at [place]. Last Assessment & Plan: Stable left carotid stenosis by recent ultrasound. No TIA or strokelike symptoms or acute findings on head CT. Continue long-term control of cardiovascular risk factors and follow with her other physicians. [facility] vascular Memory impairment 12/02/2015 Memory loss [...] up labs. Will get records from Hem[facility]Onc [facility] (Dr. Escalera at [facility] in [place], [place]). 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 Had good response to night pride. Presently on Entresto and followed by the advanced heart failure program at [place] when she returns up [place]. Added automatically from request for surgery [id number] Moderate by cath Nov: 66 mmHg peak systolic Last Assessment & Plan: Has been followed at the advanced heart failure program at [place] and Dr. Coppola. 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 Is maintained on beta-blockers and anticoagulation with Eliquis. Atrial fibrillation Last Assessment & Plan: Infrequent spells on pacemaker interrogation of atrial fibrillation without rapid ventricular rates. Continue decrease metoprolol and continue Eliquis with follow-up of hemoglobin and for any symptoms or signs of bleeding with others. Current Oncology Plans No current plan information found. Past Plans Radiation Treatments * No radiation treatments are documented for this patient in [facility]. Treatments may have been administered in another system. Lifetime Dose Tracking * Chemical Lifetime Dose Automatic Entry Manual Entr y Air Kerma-mGy 3.67 mGy 0 mGy 3.67 mGy Dose Area Product(DAP)-mGy-cm2 328 mGy-cm2 0 mGy-cm2 328 mGy-cm2 Resolved Problems Problem Noted Date Diagnosed Date Resolved Date On anticoagulant therapy 05/11/2017 A-fib 04/30/2017 06/22/2020
--- OUTSIDE RECORDS SUMMARY | 2024-12-19 16:48 | XMS_ITS | Encounter Summary ---
Author Organization [facility] Address [address] [place] [address] Care Team Providers Care Noise Tester Name Role Phone Jace Blake MD Primary Care Provider Provider, Conversion Unavailable Unavaila Andres Topete MD Unavailable [phone] Aki Ross MD Unavailable [phone] Ursula Boo MD Unavailable Rcoio Youssef PA-C Unavailable Emeterio Valencia MD Unavailable Encounter Details Date Type Department Care Team ([facility] st Contact Info) Description 07/02/2017 Orders Only [facility] Heart & Vascular [place] [address] [address] Aki Ross MD [address] [place] [address] [address] [place] [address] Social History Tobacco Use Types Packs/Day [...] Description 03/02/2025 1:40 PM EDT Office Visit [facility] Dermatology [place] 35 [place] [phone] Nico Bailey MD [address] [place] [address] 03/22/2025 1:30 PM EDT Office Visit [facility] [address] [place] [phone] Ursula Boo MD [address] [place] [address] 05/04/2025 10:00 AM EDT Office Visit [facility] Heart & Vascular [place] 45 [facility] [address] [place] [phone] Aki Ross MD [address] [place] [address] [address] [place], [place] [phone] documented as of this encounter Procedures Procedure Name Priority Date/Time Associated Diagnosis Comments CARDIAC IMPLANTABLE ELECTRONIC DEVICE EVALUATION 07/02/2017 4:22 PM EDT documented in this encounter Results * Cardiac Implantable Electronic Dev Eval (07/02/2017 4:22 PM EDT) Anatomical Region Laterality Modality Other 07/02/2017 4:22 PM EDT Narrative 07/02/2017 4:22 PM EDT Please see attached document for final result Procedure Note Aki Ross MD - 10/22/2017 Please see attached document for final result Aki Ross MD CV CARDIAC SERVICES ORDERABLES documented in this encounter Visit Diagnoses Not on filedocumented in this encounter Care Teams Noise Tester Relationship Specialty Start Date End Date Jace Blake MD [address] [place] [address] PCP - General Psychiatry, General 05/04/17 ProviderRachid MD 04/27/17 Andres Lakhani MD [address] [place] [address] Cooling Tower Operator Cardiology 07/08/19 Aki Ross MD [address] [place] [address] Primary Cooling Tower Operator Cardiovascular Disease 07/08/19 Ursula Boo MD [address] [place] [address] Gastroenterology 06/07/20 Rocio [facility]oussef PA-C [facility] [address] [address] Physician School Admissions Representative Gastroenterology 06/07/20 Emeterio Valencia MD [address] [place] [address] Clinician Pulmonary Medicine 06/20/20 documented as of this encounter
--- OUTSIDE RECORDS SUMMARY | 2024-12-19 16:48 | XMS_ITS | Encounter Summary ---
Author Organization [facility] Address [address] [place] [address] Care Team Providers Care Stock Puller Name Role Phone Jace Blake MD Primary Care Provider [phone] Provider, Conversion Unavailable Unavaila Andres Topete MD Unavailable [phone] Aki Ross MD Unavailable [phone] Ursula Boo MD Unavailable Rocio Youssef PA-C Unavailable Emeterio Valencia MD Unavailable Encounter Details Date Type Department Care Team (Late st Contact Info) Description 07/25/2020 Scanned Document [facility] [address] [place] [phone] Ursula Boo MD [address] [place] [address] Social History Tobacco Use Types Packs/Day Years [...] have Coronavirus / COVID-19? No / Unsure 06/26/2020 10:01 AM EDT documented as of this encounter Plan of Treatment Upcoming Encounters Date Type Department Care Team (Late st Contact Info) Description 03/02/2025 1:40 PM EDT Office Visit [facility] Dermatology [place] 35 [place] [address] Nico Bailey MD [address] [place] [address] 03/22/2025 1:30 PM EDT Office Visit [facility] [address] [place] [phone] Ursula Boo MD [address] [address] 05/04/2025 10:00 AM EDT Office Visit [facility] Heart & Vascular [place] [address] [address] Aki Ross MD [address] [place] [address] documented as of this encounter Visit Diagnoses Not on filedocumented in this encounter Care Teams Stock Puller Relationship Specialty Start Date End Date Jace Blake MD [address] [place] [address] PCP - General Psychiatry, General 05/04/17 ProviderRachid MD 04/27/17 Andres Lakhani MD [address] [place] [address] Electrical Superintendent Cardiology 07/08/19 Aki Ross MD [address] [place] [address] Primary Electrical Superintendent Cardiovascular Disease 07/08/19 Ursula Boo MD [address] [place] [address] Gastroenterology 06/07/20 Rocio Youssef PA-C [address] [place] [address] Physician Hse Advisor Gastroenterology 06/07/20 Emeterio Valencia MD [address] [place] [address] Clinician Pulmonary Medicine 06/20/20 documented as of this encounter
--- OUTSIDE RECORDS SUMMARY | 2024-12-19 16:48 | XMS_ITS | Encounter Summary ---
Author Organization [facility] Address [address] [place] [address] Care Team Providers Care Environmental Services Technician Name Role Phone Jace Blake MD Primary Care Provider Provider, Rachid GARCIA Unavailable Unavaila Andres Topete MD Unavailable [phone] Aki Ross MD Unavailable [phone] Ursula Boo MD Unavailable Rocio Youssef PA-C Unavailable [phone] Emeterio Valencia MD Unavailable Encounter Details Date Type Department Care Team (Late st Contact Info) Description 06/20/2020 Scanned Document [facility] Heart & Vascular [place] [address] [place] [address] Provider, External, [address] [place] [address] Social History Tobacco Use Types Packs/Day Years [...] or suspected to have Coronavirus / COVID-19? Unable to assess 06/20/2020 1:37 PM EDT documented as of this encounter Plan of Treatment Upcoming Encounters Date Type Department Care Team (Late st Contact Info) Description 03/02/2025 1:40 PM EDT Office Visit [facility] Dermatology [place] 35 [place] [address] Nico Bailey MD [address] [place] [address] 03/22/2025 1:30 PM EDT Office Visit [place] [place] [address] [place] [phone] Ursula Boo MD [address] [place] [address] 05/04/2025 10:00 AM EDT Office Visit [facility] Heart & Vascular [place] [address] [address] Aki Ross MD [address] [place] [address] documented as of this encounter Visit Diagnoses Not on filedocumented in this encounter Care Teams Environmental Services Technician Relationship Specialty Start Date End Date Jace Blake MD [address] [place] [address] PCP - General Psychiatry, General 05/04/17 ProviderRachid MD 04/27/17 Andres Lakhani MD [address] [place] [address] Basin Tender Cardiology 07/08/19 Aki Ross MD [address] [place] [address] Primary Basin Tender Cardiovascular Disease 07/08/19 Ursula Boo MD [address] [place] [address] Gastroenterology 06/07/20 Rocio Youssef PA-C [address] [place] [address] Physician Assistant Designer Gastroenterology 06/07/20 Emeterio Valencia MD [address] [place] [address] Clinician Pulmonary Medicine 06/20/20 documented as of this encounter
--- OUTSIDE RECORDS SUMMARY | 2024-12-19 16:48 | XMS_ITS | Encounter Summary ---
Author Organization [facility] Address [address] [place] [phone] Care Team Providers Care Safety Council Director Name Role Phone Blake, Gary Primary Care Provider [phone] Encounter Details Date Type Department Care Team (Latest Contact Info) Description 06/10/2017 Transcribed Orders [facility] [address] [place] [address] Aki Ross MD [address] [address] Paroxysmal atrial fibrillation (HC Code) (Primary Dx) Social History Tobacco Use Types Packs/Day Years Used Date Smoking Tobacco: Former Cigarettes 1 40 0 07/14/1972 - 07/14/2012 Smokeless Tobacco: Never Alcohol Use Standard Drinks/Week Comments No 0 (1 standard drink = 0.6 oz pur e alcohol) Comments Unknown Sex and Gender Information Value Date Recorded Sex Assigned at Not on file Legal Sex Female 9:43 AM EST Gender Identity Not on file Sexual Orientation Not on file documented as of this encounter Plan of Treatment Upcoming Encounters Date Type Department Care Team (Late st Contact Info) Description 12/28/2024 10:40 AM EST Follow Up Congestive Heart Failure Program at [address] [place] [address] 2nd [place] [address] Diana Coppola MD [address] [place] [phone] 06/07/2025 10:30 AM EDT Follow Up Neuromuscular Medicine at 800 [facility] 800 [place] [address] Silvestre Maldonado MD [address] [place] [phone] 10/05/2025 12:30 PM EST Appointment PULMONARY FUNCTION LABORATORY - [address] [address] Aparna Chang MD [address] [place] [phone] [place], Pft Walk 10/05/2025 1:00 PM EST Appointment PUL[facility]CTION LABORATORY - [address] [place] [address] Aparna Chang MD [address] [place] [phone] 1, Pft Procedure Room 10/05/2025 2:00 PM EST Office Visit [facility] [address] [address] Aparna Chang MD [address] [place] [phone] documented as of this encounter Visit Diagnoses Diagnosis Paroxysmal atrial fibrillation (HC Code) (HC CODE) (HC Code)- Primary Atrial fibrillation documented in this encounter Care Teams Safety Council Director Relationship Specialty Start Date End Date Jace Blake DO [address] [place] [address] PCP - General Family Medicine 08/01/14 documented as of this encounter
--- OUTSIDE RECORDS SUMMARY | 2024-12-19 16:48 | XMS_ITS | Encounter Summary ---
Author Organization [facility] Address [address] [place] [address] Care Team Providers Care Livestock Farmers Name Role Phone Jace Blake DO Primary Care Provider [phone] Reason for Visit * Reason Onset Date Comments Other 11/04/2024 Encounter Details Date Type Department Care Team (Late st Contact Info) Description 11/04/2024 Telephone Electrophysiology & Cardiac Arrhythmia Program [address] [place] [phone] Will Priest MD [address] [place] [phone] Other Social History Tobacco Use Types Packs/Day [...] encounter Miscellaneous Notes * Telephone Encounter - Awa Wagner RN - 11/04/2024 4:03 PM EST Spoke with [facility]. Had her fax us cardiac clearance/MRI order form. Provided our fax number. Will be scanned in Epic. * Telephone Encounter - Liseth Moser - 11/04/2024 9:12 AM ESTSummary: MRI vs pacemaker - returning call Patient will be getting an abdomen MRI and has pacemaker. This will be done at [facility] andnot here at [facility]. They are asking the instructions for getting the MRI - Pls call back. documented in this encounter Plan of Treatment Upcoming Encounters Date Type Department Care Team (Late st Contact Info) Description 12/28/2024 10:40 AM EST Follow Up Congestive Heart Failure Program at [address] [place] [address] 2[address] [place] [address] Diana Coppola MD [address] [place] [phone] 06/07/2025 10:30 AM EDT Follow Up Neuromuscular Medicine at [address] [place] [address] [place] [address] Silvestre Maldonado MD [address] [place] [phone] 10/05/2025 12:30 PM EST Appointment PULMONARY FUNCTION LABORATORY - [address] [address] Aparna Chang MD [address] [place] [phone] Hallway, Pft Walk 10/05/2025 1:00 PM EST Appointment PULMONARY [facility]CTION LABORATORY - [address] [address] Aparna Chang MD [address] [place] [phone] 1, Pft Procedure Room 10/05/2025 2:00 PM EST Office Visit [facility] [address] [phone] Aparna Chang MD [address] [place] [phone] documented as of this encounter Visit Diagnoses Not on filedocumented in this encounter Additional Health Concerns Assessment Noted Time PHQ-9 Depression Total Score: 0 03/16/20 24 10:01 AM EDT documented as of this encounter Care Teams Livestock Farmers Relationship Specialty Start Date End Date Jace Blake DO [address] [place] [address] PCP - General Family Medicine 08/01/14 documented as of this encounter
--- OUTSIDE RECORDS SUMMARY | 2024-12-19 16:48 | XMS_ITS | Encounter Summary ---
Author Organization [facility] Address [address] [place] [phone] Care Team Providers Care Plant Operations Engineer Name Role Phone Miguel Angel Blakey Primary Care Provider [phone] Encounter Details Date Type Department Care Team (Late st Contact Info) Description 05/04/2019 Scanned Document Neurosurgery at [address] [place] [address] Narda Candelaria PA [address] [place] [phone] Social History Tobacco Use Types Packs/Day Years [...] Up Congestive Heart Failure Program at [address] [place] [address] Diana Coppola MD [address] [place] [phone] 06/07/2025 10:30 AM EDT Follow Up [facility] Neuromuscular Medicine at 800 [facility] 800 [facility] [place] [address] Silvestre Maldonado MD 800 [place] [phone] 10/05/2025 12:30 PM EST Appointment PULMONARY FUNCTION LABORATORY - [address] [address] Aparna Chang MD [address] [place] [phone] Hallway, Pft Walk 10/05/2025 1:00 PM EST Appointment PULMONARY FUNCTION LABORATORY - [address] [place] [address] Aparna Chang MD [address] [place] [phone] 1, Pft Procedure Room 10/05/2025 2:00 PM EST Office Visit [facility] [address] [phone] Aparna Chang MD [address] [place] [phone] documented as of this encounter Visit Diagnoses Not on filedocumented in this encounter Care Teams Plant Operations Engineer Relationship Specialty Start Date End Date Jace Blake DO [address] [place] [address] PCP - General Family Medicine 08/01/14 documented as of this encounter
--- OUTSIDE RECORDS SUMMARY | 2024-12-19 16:48 | XMS_ITS | Encounter Summary ---
Author Organization [facility] Address [address] [place] [address] Care Team Providers Care Turkey Boner Name Role Phone Jace Blake MD Primary Care Provider Provider, Conversion Unavailable Unavaila Andres Topete MD Unavailable [phone] Aki Ross MD Unavailable [phone] Ursula Boo MD Unavailable [phone] Rocio Youssef PA-C Unavailable Emeterio Valencia MD Unavailable Encounter Details Date Type Department Care Team (Late st Contact Info) Description 08/06/2020 Scanned Document [facility] [address] [place] [phone] Ursula Boo MD [address] [place] [address] Social History Tobacco Use Types Packs/Day Years [...] Description 03/02/2025 1:40 PM EDT Office Visit [facility] Dermatology [place] [address] [place] [address] Nico Bailey MD [address] [place] [address] 03/22/2025 1:30 PM EDT Office Visit [facility] [address] [place] [phone] Ursula Boo MD [address], [place] [address] 05/04/2025 10:00 AM EDT Office Visit [facility] Heart & Vascular [address] [place] [address] [address] Aki Ross MD [address] [place] [address] documented as of this encounter Visit Diagnoses Not on filedocumented in this encounter Care Teams Turkey Boner Relationship Specialty Start Date End Date Jace Blake MD [address] [place] [address] PCP - General Psychiatry, General 05/04/17 ProviderRachid MD 04/27/17 Andres Lakhani MD [address] [place] [address] Cow Washer Cardiology 07/08/19 Aki Ross MD [address] [place] [address] Primary Cow Washer Cardiovascular Disease 07/08/19 Ursula Boo MD [address] [place] [address] Gastroenterology 06/07/20 Rocio Youssef PA-C [address] [place] [address] Physician Fruit Thinner Machine Operator Gastroenterology 06/07/20 Emeterio Valencia MD [address] [place] [address] Clinician Pulmonary Medicine 06/20/20 documented as of this encounter
--- OUTSIDE RECORDS SUMMARY | 2024-12-19 16:48 | XMS_ITS | Encounter Summary ---
Author Organization [facility] Address [address] [place] [phone] Care Team Providers Care Warp Picker Name Role Phone HaydenJace Primary Care Provider Encounter Details Date Type Department Care Team (Late st Contact Info) Description 05/27/2017 Scanned Document Neurosurgery at [address] [place] [address] Teodoro Hollingsworth MD [address] [place] [phone] Social History Tobacco Use Types Packs/Day [...] Up Congestive Heart Failure Program at [address] [place], [place] [address] Diana Coppola MD [address] [place] [phone] 06/07/2025 10:30 AM EDT Follow Up [facility] Neuromuscular Medicine at 800 [facility] 800 [facility] [place] [address] Silvestre Maldonado MD [address] [place] [phone] 10/05/2025 12:30 PM EST Appointment PULMONARY FUNCTION LABORATORY - [address] [address] Aparna Chang MD [address] [place] [phone] Hallway, Pft Walk 10/05/2025 1:00 PM EST Appointment PULMONARY FUNCTION LABORATORY - [address] [place] [address] Aparna Chang MD [address] [place] [phone] 1, Pft Procedure Room 10/05/2025 2:00 PM EST Office Visit [facility] [address] [phone] Aparna Chang MD [address] [place] [phone] documented as of this encounter Visit Diagnoses Not on filedocumented in this encounter Care Teams Warp Picker Relationship Specialty Start Date End Date Jace Blake DO [address] [place] [address] PCP - General Family Medicine 08/01/14 documented as of this encounter
--- OUTSIDE RECORDS SUMMARY | 2024-12-19 16:48 | XMS_ITS | Encounter Summary ---
Author Organization [facility] Address [address] [place] [address] Care Team Providers Care Street Light Inspector Name Role Phone Jace Blake MD Primary Care Provider Provider, Rachid GARCIA Unavailable Unavaila Andres Topete MD Unavailable [phone] Aki Ross MD Unavailable [phone] Ursula Boo MD Unavailable Rocio Youssef PA-C Unavailable Emeterio Valencia MD Unavailable Encounter Details Date Type Department Care Team (Late st Contact Info) Description 02/24/2020 Scanned Document GENERIC EXTERNAL DATA DEPARTMENT Provider, External, [address] [place] [address] Social History Tobacco Use Types Packs/Day Years [...] Description 03/02/2025 1:40 PM EDT Office Visit [facility] Dermatology [place] 35 [place] [address] Nico Bailye MD 35 [place] [address] 03/22/2025 1:30 PM EDT Office Visit [facility] [address] [place] [address] Ursula Boo MD [address] [place] [address] 05/04/2025 10:00 AM EDT Office Visit [facility] Heart & Vascular [place] [address] [address] Aki Ross MD [address] [place] [address] documented as of this encounter Visit Diagnoses Not on filedocumented in this encounter Care Teams Street Light Inspector Relationship Specialty Start Date End Date Jace Blake MD [address] [place] [address] PCP - General Psychiatry, General 05/04/17 Rachid Robles MD 04/27/17 Andres Lakhani MD [address] [place] [address] Instrument Technician Cardiology 07/08/19 Aki Ross MD [address] [place] [phone] Primary Instrument Technician Cardiovascular Disease 07/08/19 Ursula Boo MD [address] [place] [address] Gastroenterology 06/07/20 Rocio Youssef PA-C [address] [place] [address] Physician Marine Drafter Gastroenterology 06/07/20 Emeterio Valencia MD [address] [place] [address] Clinician Pulmonary Medicine 06/20/20 documented as of this encounter
--- OUTSIDE RECORDS SUMMARY | 2024-12-19 16:48 | XMS_ITS | Encounter Summary ---
Author Organization [facility] Address [address] [place] [address] Care Team Providers Care Plate Conditioner Name Role Phone Jace Blake MD Primary Care Provider Provider, Conversion Unavailable Unavaila Andres Topete MD Unavailable [phone] Aki Ross MD Unavailable [phone] Ursula Boo MD Unavailable Rocio Youssef PA-C Unavailable [phone] Emeterio Valencia MD Unavailable Encounter Details Date Type Department Care Team (Late st Contact Info) Description 08/09/2020 Scanned Document [facility] [address] [place] [phone] Ursula Boo MD [address] [place] [address] Social History Tobacco Use Types Packs/Day Years [...] Description 03/02/2025 1:40 PM EDT Office Visit [facility] Dermatology [place] [address] [place] [address] Nico Bailey MD [address] [place] [address] 03/22/2025 1:30 PM EDT Office Visit [facility] [address] [place] [phone] Ursula Boo MD [address] [address] 05/04/2025 10:00 AM EDT Office Visit [facility] Heart & Vascular [place] [address] [address] Aki Ross MD [address] [place] [address] documented as of this encounter Visit Diagnoses Not on filedocumented in this encounter Care Teams Plate Conditioner Relationship Specialty Start Date End Date Jace Blake MD [address] [place] [address] PCP - General Psychiatry, General 05/04/17 ProviderRachid MD 04/27/17 Andres Lakhani MD [address] [place] [address] Valet Cardiology 07/08/19 Aki Ross MD [address] [place] [address] Primary [place]et Cardiovascular Disease 07/08/19 Ursula Boo MD [address] [place] [address] Gastroenterology 06/07/20 Rocio Youssef PA-C [address] [place] [address] Physician Peanut Picker Gastroenterology 06/07/20 Emeterio Valencia MD [address] [place] [address] Clinician Pulmonary Medicine 06/20/20 documented as of this encounter
--- OUTSIDE RECORDS SUMMARY | 2024-12-19 16:48 | XMS_ITS | Encounter Summary ---
Author Organization [facility] Address [address] [place] [address] Care Team Providers Care Woolen Suiting Shrinker Name Role Phone Blake, Gary Primary Care Provider Encounter Details Date Type Department Care Team (Latest Contact Info) Description 06/24/2019 Transcribed Orders [facility] [address] [place] [address] Kenya Cortez MD [address] [place] [phone] Acquired polyneuropathy (HC Code) (Primary Dx); Neuropathy (HC Code) Social History Tobacco Use Types [...] Up Congestive Heart Failure Program at 800 [facility] 800 [facility] 2nd Floor [place], [place] [address] [phone] Diana Coppola MD [address] [facility] [place] [phone] 06/07/2025 10:30 AM EDT Follow Up [facility] Neuromuscular Medicine at 800 [facility] 800 [facility] [place] [address] Silvestre Maldonado MD 800 [place] [phone] 10/05/2025 12:30 PM EST Appointment [facility] - [address] [address] Aparna Chang MD [address] [place] [phone] Hallway, Pft Walk 10/05/2025 1:00 PM EST Appointment [facility] - [address] [place] [address] Aparna Chang MD [address] [place] [phone] 1, Pft Procedure Room 10/05/2025 2:00 PM EST Office Visit [facility] [address] [phone] Aparna Chang MD [address] [place] [phone] documented as of this encounter Procedures Procedure Name Priority Date/Time Associated Diagnosis Comments VITAMIN B6 Routine 06/24/2019 12:54 PM EDT Neuropathy (HC Code) IMMUNOGLOBULIN A Routine 06/24/2019 12:5 4 PM EDT Acquired polyneuropathy (HC Code) IMMUNOGLOBULIN M Routine 06/24/2019 12:5 4 PM EDT Acquired polyneuropathy (HC Code) IMMUNOGLOBULIN G Routine 06/24/2019 12:5 4 PM EDT Acquired polyneuropathy (HC Code) VITAMIN B12 Routine 06/24/2019 12:54 PM EDT Neuropathy (HC Code) documented in this encounter Results * VITAMIN B6 (06/24/2019 12:54 PM EDT) Vitamin B6 4.7 2.1 - 21.7 ng/mL 06/27/2019 3:43 PM EDT [facility] Comment: Vitamin supplementation within 24 hours prior to blood draw may affect the accuracy of the results. This test was developed and its analytical performance characteristics have been determined by [facility] [place], [place]. It has not been cleared or approved by the U.S. Food and Drug Administration. This assay has been validated pursuant to the CLIA regulations and is used for clinical purposes. Test Performed at: [facility] [address] [place], [place] ??[address] Teodoro Shore M.D., Ph.D.,Director of Laboratories Blood Venipuncture / Unknown 06/24/2019 12:54 PM EDT 06/24/2019 1:52 PM EDT us Kenya Cortez MD LAB BLOOD ORDERABLES Final Resul t [facility] * Vitamin B12 (06/24/2019 12:54 PM EDT) Vitamin B12 880 232-1,245 pg/mL 06/24/2019 2:36 PM EDT [facility] Comment: As of 2019, this assay is now being performed on the [employer] Melyssa 8000. ??Please note the change in reference range. Blood Venipuncture / Unknown 06/24/2019 12:54 PM EDT 06/24/2019 1:52 PM EDT us Kenya Cortez MD LAB BLOOD ORDERABLES Final Resul t Performing Organization Address [facility] de Phone Number [facility] [address] [place] [address] * Immunoglobulin M (06/24/2019 12:54 PM EDT) Immunoglobulin M 190 35 - 263 mg/dL 06/24/2019 4:42 PM EDT [facility] Blood Venipuncture / Unknown 06/24/2019 12:54 PM EDT 06/24/2019 1:52 PM EDT us Kenya Cortez MD LAB BLOOD ORDERABLES Final Resul t Performing Organization Address [facility] de Phone Number [facility] [address] [place] [address] * Immunoglobulin G (06/24/2019 12:54 PM EDT) Immunoglobulin G 1,260 768-1,632 mg/dL 06/24/2019 4:42 PM EDT [facility] Blood Venipuncture / Unknown 06/24/2019 12:54 PM EDT 06/24/2019 1:52 PM EDT Result Benedict Cortez MD LAB BLOOD ORDERABLES Final Resul t Performing Organization Address [facility] de Phone Number [facility] [address] [place] [address] * Immunoglobulin A (06/24/2019 12:54 PM EDT) Immunoglobulin A 372 68 - 408 mg/dL 06/24/2019 4:42 PM EDT [facility] Blood Venipuncture / Unknown 06/24/2019 12:54 PM EDT 06/24/2019 1:52 PM EDT us Kenya Cortez MD LAB BLOOD ORDERABLES Final Resul t Performing Organization Address [facility] Co de Phone Number [facility] [address] [place] [address], [facility] [phone] documented in this encounter Visit Diagnoses Diagnosis Acquired polyneuropathy- Primary Unspecified hereditary and idiopathic peripheral neuropathy Neuropathy (HC Code) Mononeuritis of unspecified site documented in this encounter Care Teams Woolen Suiting Shrinker Relationship Specialty Start Date End Date Jace Blake DO [address] [place] [address] PCP - General Family Medicine 08/01/14 documented as of this encounter
--- OUTSIDE RECORDS SUMMARY | 2024-12-19 16:48 | XMS_ITS | Encounter Summary ---
Author Organization [facility] Address [address] [place] [address] Care Team Providers Care Manager Administration Name Role Phone Jace Blake MD Primary Care Provider Provider, Rachid GARCIA Unavailable Unavaila Andres Topete MD Unavailable [phone] Aki Ross MD Unavailable [phone] Ursula Boo MD Unavailable [phone] Rocio Youssef PA-C Unavailable Emeterio Valencia MD Unavailable Encounter Details Date Type Department Care Team (Late st Contact Info) Description 06/20/2020 Scanned Document [facility] [place] [address] [place] [address] Provider, External, [address] [place] [address] Social History Tobacco Use Types Packs/Day Years [...] 03/02/2025 1:40 PM EDT Office Visit [facility] Dermatology [place] [address] [place] [address] Nico Bailey MD [address] [place] [address] 03/22/2025 1:30 PM EDT Office Visit [place] [facility] [address] [place] [phone] Ursula Boo MD [address] [place] [address] 05/04/2025 10:00 AM EDT Office Visit [facility] [place] [address] [address] Aki Ross MD [address] [place] [address] documented as of this encounter Visit Diagnoses Not on filedocumented in this encounter Care Teams Manager Administration Relationship Specialty Start Date End Date Jace Blake MD [address] [place] [address] PCP - General Psychiatry, General 05/04/17 ProviderRachid MD 04/27/17 Andres Lakhani MD [address] [place] [address] Tile Mechanic Helper Cardiology 07/08/19 Aki Ross MD [address] [place] [address] Primary Tile Mechanic Helper Cardiovascular Disease 07/08/19 Ursula Boo MD [address] [place] [address] Gastroenterology 06/07/20 Rocio Youssef PA-C [address] [place] [address] Physician Charcoal Unloader Gastroenterology 06/07/20 Emeterio Valencia MD [address] [place] [address] Clinician Pulmonary Medicine 06/20/20 documented as of this encounter
--- OUTSIDE RECORDS SUMMARY | 2024-12-19 16:48 | XMS_ITS | Encounter Summary ---
Author Organization [facility] Address [address] [place] [address] Care Team Providers Care Chlorinator Name Role Phone Jace Blake MD Primary Care Provider Provider, Rachid GARCIA Unavailable Unavaila Andres Topete MD Unavailable [phone] Aki Ross MD Unavailable [phone] Ursula Boo MD Unavailable Rocio Yosusef PA-C Unavailable Emeterio Valencia MD Unavailable Encounter Details Date Type Department Care Team (Late st Contact Info) Description 06/12/2020 Scanned Document [facility] [place] [address] [place] [address] Provider, External, [address] [place] [address] Social History Tobacco Use Types Packs/Day Years [...] Coronavirus / COVID-19? No / Unsure 06/07/2020 10:06 AM EDT documented as of this encounter Plan of Treatment Upcoming Encounters Date Type Department Care Team (Late st Contact Info) Description 03/02/2025 1:40 PM EDT Office Visit [facility] Dermatology [place] 35 [place] [address] Nico Bailey MD 35 [place] [address] 03/22/2025 1:30 PM EDT Office Visit [place] [address] [place] [address] Ursula Boo MD [address] [place] [address] 05/04/2025 10:00 AM EDT Office Visit [facility] [place] [address] [address] Aki Ross MD [address] [place] [address] documented as of this encounter Visit Diagnoses Not on filedocumented in this encounter Care Teams Chlorinator Relationship Specialty Start Date End Date Jace Blake MD [address] [place] [address] PCP - General Psychiatry, General 05/04/17 ProviderRachid MD 04/27/17 Andres Lakhani MD [address] [place] [address] Physical Therapist Center Manager Cardiology 07/08/19 Aki Ross MD [address] [place] [address] Primary Physical Therapist Center Manager Cardiovascular Disease 07/08/19 Ursula Boo MD [address] [place] [address] Gastroenterology 06/07/20 Rocio Youssef PA-C [address] [place] [address] Physician Certified Scrub Tech Gastroenterology 06/07/20 Emeterio Valencia MD [address] [place] [address] Clinician Pulmonary Medicine 06/20/20 documented as of this encounter
--- OUTSIDE RECORDS SUMMARY | 2024-12-19 16:48 | XMS_ITS | Encounter Summary ---
Author Organization [facility] and [facility] Address [address] [place] [phone] Care Team Providers Care Jukebox Checker Name Role Phone HaydenJace Primary Care Provider [phone] Encounter Details Date Type Department Care Team (Late st Contact Info) Description 05/11/2017 Scanned Document Neurosurgery at [address] [place] [address] Teodoro Hollingsworth MD [address] [place] [phone] Social History Tobacco Use Types Packs/Day [...] Up Congestive Heart Failure Program at [address] 2[address] [place], [place] [phone] Diana Coppola MD [address] [place] [phone] 06/07/2025 10:30 AM EDT Follow Up [facility] at 800 [facility] 800 [facility] [place] [address] Silvestre Maldonado MD [address] [place] [phone] 10/05/2025 12:30 PM EST Appointment [facility] LAB[facility]AT[facility] - [address] [address] Aparna Chang MD [address] [place] [phone] Hallway, Pft Walk 10/05/2025 1:00 PM EST Appointment [facility] - [address] [place] [address] Aparna Chang MD [address] [place] [phone] 1, Pft Procedure Room 10/05/2025 2:00 PM EST Office Visit [facility] [address] [phone] Aparna Chang MD [address] [place] [phone] documented as of this encounter Visit Diagnoses Not on filedocumented in this encounter Care Teams Jukebox Checker Relationship Specialty Start Date End Date Jace Blake DO [address] [place] [address] PCP - General Family Medicine 08/01/14 documented as of this encounter
--- OUTSIDE RECORDS SUMMARY | 2024-12-19 16:48 | XMS_ITS | Encounter Summary ---
Author Organization [facility] Address [address] [place] [address] Care Team Providers Care Nursery Hand Name Role Phone Jace Blake MD Primary Care Provider [phone] Provider, Rachid GARCIA Unavailable Unavaila Andres Topete MD Unavailable [phone] Aki Ross MD Unavailable [phone] Ursula Boo MD Unavailable [phone] Rocio Youssef PA-C Unavailable [phone] Emeterio Valencia MD Unavailable Encounter Details Date Type Department Care Team (Late st Contact Info) Description 10/09/2023 Scanned Document [facility] Heart & Vascular [place] [address] [place] [phone] Provider, External, [address] [place] [address] Social History Tobacco Use Types Packs/Day Years [...] Description 03/02/2025 1:40 PM EDT Office Visit [facility] [place] [place] Dermatology [place] 35 [place] [address] Nico Bailey MD [address] [place] [address] 03/22/2025 1:30 PM EDT Office Visit [address] [address] Ursula Boo MD [address] [address] 05/04/2025 10:00 AM EDT Office Visit [facility] Heart & Vascular [place] [address] [address] Aki Ross MD [address] [place] [address] documented as of this encounter Visit Diagnoses Not on filedocumented in this encounter Care Teams Nursery Hand Relationship Specialty Start Date End Date Jace Blake MD [address]8 [place] [address] PCP - General Psychiatry, General 05/04/17 Rachid Robles MD 04/27/17 Andres Lakhani MD [address] [place] [address] Slitting Machine Feeder Cardiology 07/08/19 Aki Ross MD [address] [place] [address] Primary Slitting Machine Feeder Cardiovascular Disease 07/08/19 Ursula Boo MD [address] [place] [address] Gastroenterology 06/07/20 Rocio Youssef PA-C [address] [place] [address] Physician Facility Designer Gastroenterology 06/07/20 Emeterio Valencia MD [address] [place] [address] Clinician Pulmonary Medicine 06/20/20 documented as of this encounter
--- OUTSIDE RECORDS SUMMARY | 2024-12-19 16:48 | XMS_ITS | Encounter Summary ---
Author Organization [facility] Address [address] [place] [address] Care Team Providers Care Job Analyst Name Role Phone Jace Blake MD Primary Care Provider [phone] Provider, Conversion Unavailable Unavaila Andres Topete MD Unavailable [phone] Aki Ross MD Unavailable [phone] Ursula Boo MD Unavailable [phone] Rocio Youssef PA-C Unavailable [phone] Emeterio Valencia MD Unavailable Encounter Details Date Type Department Care Team (Late st Contact Info) Description 07/25/2020 Scanned Document [facility] [address] [place] [phone] Ursula Boo MD [address] [place] [address] Social History Tobacco Use Types Packs/Day Years [...] Description 03/02/2025 1:40 PM EDT Office Visit [facility] Dermatology [place] 35 [place] [address] Nico Bailey MD [address] [place] [address] 03/22/2025 1:30 PM EDT Office Visit [place] [address] [place] [phone] Ursula Boo MD [address] [address] 05/04/2025 10:00 AM EDT Office Visit [facility] Heart & Vascular [place] [address] [address] Aki Ross MD [address] [place] [address] documented as of this encounter Visit Diagnoses Not on filedocumented in this encounter Care Teams Job Analyst Relationship Specialty Start Date End Date Jace Blake MD [address] [place] [address] PCP - General Psychiatry, General 05/04/17 ProviderRachid MD 04/27/17 Andres Lakhani MD [address] [place] [address] Licensed Master Social Worker Cardiology 07/08/19 Aki Ross MD [address] [place] [address] Primary Licensed Master Social Worker Cardiovascular Disease 07/08/19 Ursula Boo MD [address] [place] [address] Gastroenterology 06/07/20 Rocio Youssef PA-C [address] [place] [address] Physician Black Mill Operator Gastroenterology 06/07/20 Emeterio Valencia MD [address] [place] [address] Clinician Pulmonary Medicine 06/20/20 documented as of this encounter
--- OUTSIDE RECORDS SUMMARY | 2024-12-19 16:48 | XMS_ITS | Encounter Summary ---
Author Organization [facility] Address [address] [place] [address] Care Team Providers Care Jv Baseball Coach Name Role Phone Jace Blake MD Primary Care Provider Provider, Conversion Unavailable Unavaila Andres Topete MD Unavailable [phone] Aki Ross MD Unavailable [phone] Ursula Boo MD Unavailable Rocio Youssef PA-C Unavailable Emeterio Valencia MD Unavailable Encounter Details Date Type Department Care Team (Late st Contact Info) Description 07/17/[address] [facility] [address] [place] [address] Ursula Boo MD [address] [place] [address] Social History Tobacco Use Types Packs/Day Years [...] Description 03/02/2025 1:40 PM EDT Office Visit [facility] Dermatology [place] 35 [place] [address] Nico Bailey MD [address] [place] [address] 03/22/2025 1:30 PM EDT Office Visit [place] [address] [place] [phone] Urslua Boo MD [address] [address] 05/04/2025 10:00 AM EDT Office Visit [facility] Heart & Vascular [place] [address] [address] Aki Ross MD [address] [place] [address] documented as of this encounter Visit Diagnoses Not on filedocumented in this encounter Care Teams Jv Baseball Coach Relationship Specialty Start Date End Date Jace Blake MD [address] [place] [address] PCP - General Psychiatry, General 05/04/17 ProviderRachid MD 04/27/17 Andres Lakhani MD [address] [place] [address] Linux Unix System Administrator Cardiology 07/08/19 Aki Ross MD [address] [place] [address] Primary Linux Unix System Administrator Cardiovascular Disease 07/08/19 Ursula Boo MD [address] [place] [address] Gastroenterology 06/07/20 Rocio Youssef PA-C [address] [place] [address] Physician Purchasing Manager/Sales Gastroenterology 06/07/20 Emeterio Valencia MD [address] [place] [address] Clinician Pulmonary Medicine 06/20/20 documented as of this encounter
--- OUTSIDE RECORDS SUMMARY | 2024-12-19 16:48 | XMS_ITS | Encounter Summary ---
Author Organization [facility] Address [address] [place] [address] Care Team Providers Care Tectonophysicist Name Role Phone Jace Blake MD Primary Care Provider Provider, Conversion Unavailable Unavaila Andres Topete MD Unavailable [phone] Aki Ross MD Unavailable [phone] Ursula Boo MD Unavailable Rocio Youssef PA-C Unavailable Emeterio Valencia MD Unavailable Encounter Details Date Type Department Care Team (Late st Contact Info) Description 10/30/[address] [facility] Dermatology [place] 35 [place] [address] Nico Bailey MD 35 [place], [place] [address] Social History Tobacco Use Types Packs/Day Years [...] 03/02/2025 1:40 PM EDT Office Visit [facility] Dermatology [place] [address] [place] [address] Nico Bailey MD 35 [place] [address] 03/22/2025 1:30 PM EDT Office Visit [place] [address] [place] [address] Ursula Boo MD [address] [place] [address] 05/04/2025 10:00 AM EDT Office Visit [facility] Heart & Vascular [place] [address] [address] Aki Ross MD [address] [place] [address] documented as of this encounter Visit Diagnoses Not on filedocumented in this encounter Care Teams Tectonophysicist Relationship Specialty Start Date End Date Jace Blake MD [address] [place] [address] PCP - General Psychiatry, General 05/04/17 Rachid Robles MD 04/27/17 Andres Lakhani MD [address] [place] [address] Cell Geneticist Cardiology 07/08/19 Aki Ross MD [address] [place] [address] Primary Cell Geneticist Cardiovascular Disease 07/08/19 Ursula Boo MD [address] [place] [address] Gastroenterology 06/07/20 Rocio Youssef PA-C [address] [place] [address] Physician Roving Weight Gauger Gastroenterology 06/07/20 Emeterio Valencia MD [address] [place] [address] Clinician Pulmonary Medicine 06/20/20 documented as of this encounter
--- OUTSIDE RECORDS SUMMARY | 2024-12-19 16:48 | XMS_ITS | Encounter Summary ---
Author Organization [facility] Address [address] [place] [address] Care Team Providers Care Director East Coast Sales Name Role Phone Jace Blake MD Primary Care Provider Provider, Conversion Unavailable Unavaila Andres Topete MD Unavailable [phone] Aki Ross MD Unavailable [phone] Ursula Boo MD Unavailable Rocio Youssef PA-C Unavailable Emeterio Valencia MD Unavailable Encounter Details Date Type Department Care Team (Late st Contact Info) Description 06/19/2020 Scanned Document [facility] [address] [place] [address] Ursula Boo MD [address] [place] [address] Social History Tobacco Use Types Packs/Day Years [...] Office Visit [facility] Dermatology [place] 35 [place] [address] Nico Bailey MD [address] [place] [address] 03/22/2025 1:30 PM EDT Office Visit [place] [address] [place] [address] Ursula Boo MD [address] [place] [address] 05/04/2025 10:00 AM EDT Office Visit [facility] Heart & Vascular [place] [address] [address] Aki Ross MD [address] [place] [address] documented as of this encounter Visit Diagnoses Not on filedocumented in this encounter Care Teams Director East Coast Sales Relationship Specialty Start Date End Date Jace Blake MD [address]8 [place] [address] PCP - General Psychiatry, General 05/04/17 Rachid Robles MD 04/27/17 Andres Lakhani MD [address] [place] [address] Production Metal Sprayer Cardiology 07/08/19 Aki Ross MD [address] [place] [address] Primary Production Metal Sprayer Cardiovascular Disease 07/08/19 Ursula Boo MD [address] [place] [address] Gastroenterology 06/07/20 Rocio Youssef PA-C [address] [place] [address] Physician Multi Operation Machine Operator Gastroenterology 06/07/20 Emeterio Valencia MD [address] [place] [address] Clinician Pulmonary Medicine 06/20/20 documented as of this encounter
--- OUTSIDE RECORDS SUMMARY | 2024-12-19 16:48 | XMS_ITS | Encounter Summary ---
Author Organization [facility] Address [address] [place] [address] Care Team Providers Care Boat Worker Name Role Phone Jace Blake MD Primary Care Provider Provider, Conversion Unavailable Unavaila Andres Topete MD Unavailable [phone] Aki Ross MD Unavailable [phone] Ursula Boo MD Unavailable Rocio Youssef PA-C Unavailable [phone] Emeterio Valencia MD Unavailable Encounter Details Date Type Department Care Team (Late st Contact Info) Description 08/21/2020 Scanned Document [facility] [address] [place] [address] Tl Mancera, WALDEMAR [address] [place], [place] [phone] Social History Tobacco Use Types Packs/Day Years [...] 03/02/2025 1:40 PM EDT Office Visit [facility] Dermatology [address] [address] Nico Bailey MD [address] [place] [address] 03/22/2025 1:30 PM EDT Office Visit [place] [address] [place] [address] Ursula Boo MD [address], [place] [address] 05/04/2025 10:00 AM EDT Office Visit [facility] Heart & Vascular [place] [address] [address] Aki Ross MD [address] [place] [address] documented as of this encounter Visit Diagnoses Not on filedocumented in this encounter Care Teams Boat Worker Relationship Specialty Start Date End Date Jace Blake MD [address] [place] [address] PCP - General Psychiatry, General 05/04/17 Rachid Robles MD 04/27/17 Andres Lakhani MD [address] [place] [address] Employment Service Specialist Cardiology 07/08/19 Aki Ross MD [address] [place] [address] Primary Employment Service Specialist Cardiovascular Disease 07/08/19 Ursula Boo MD [address] [address] Gastroenterology 06/07/20 Rocio Youssef PA-C [address] [place] [address] Physician Scheduling Manager Gastroenterology 06/07/20 Emeterio Valencia MD [address] [address] Clinician Pulmonary Medicine 06/20/20 documented as of this encounter
--- OUTSIDE RECORDS SUMMARY | 2024-12-19 16:48 | XMS_ITS | Encounter Summary ---
Author Organization [facility] and [facility] Address [address] [place] [phone] Care Team Providers Care Stringer Machine Tender Name Role Phone Blake, Gary Primary Care Provider [phone] Encounter Details Date Type Department Care Team (Late Contact Info) Description 07/21/2018 Scanned Document [facility] at [address] [place] [address] [place] [address] Chino Cordova MD PhD [address] [place] [phone] Social History Tobacco Use Types Packs/Day Years [...] Follow Up Congestive Heart Failure Program at [address] [place] [address] 2[address] [place] [address] Diana Coppola MD [address] [place] [address] [place] [phone] 06/07/2025 10:30 AM EDT Follow Up [facility] Neurom[facility] at [address] [facility] [address] [facility] [place] [address] Silvestre Maldonado MD 800 [place] [phone] 10/05/2025 12:30 PM EST Appointment [facility] - [address] [address] Aparna Chang MD [address] [place] [phone] Hallway, Pft Walk 10/05/2025 1:00 PM EST Appointment [facility] - [address] [place] [address] Aparna Chang MD [address] [place] [phone] 1, Pft Procedure Room 10/05/2025 2:00 PM EST Office Visit [facility] [address] [phone] Aparna Chang MD [address] [place] [phone] documented as of this encounter Visit Diagnoses Not on filedocumented in this encounter Care Teams Stringer Machine Tender Relationship Specialty Start Date End Date Jace Blake DO [address] [place] [phone] PCP - General Family Medicine 08/01/14 documented as of this encounter
--- OUTSIDE RECORDS SUMMARY | 2024-12-19 16:48 | XMS_ITS | Encounter Summary ---
Author Organization [facility] and [facility] Address [address] [place] [phone] Care Team Providers Care Hooking Machine Operator Name Role Phone HaydenJace Primary Care Provider [phone] Encounter Details Date Type Department Care Team (Late st Contact Info) Description 07/01/2017 Scanned Document Neurosurgery at [address] [place] [address] Teodoro Hollingsworth MD [address] [place] [phone] Social History Tobacco Use Types Packs/Day [...] Up Congestive Heart Failure Program at [address] [place], [place] [phone] Diana Coppola MD [address] [place] [phone] 06/07/2025 10:30 AM EDT Follow Up [facility] Neuromuscular Medicine at 800 [facility] 800 [facility] [place] [address] Silvestre Maldonado MD [address] [place] [phone] 10/05/2025 12:30 PM EST Appointment [facility] - [address] [address] Aparna Chang MD [address] [place] [phone] Hallway, Pft Walk 10/05/2025 1:00 PM EST Appointment [facility] - [address] [place] [address] Aparna Chang MD [address] [place] [phone] 1, Pft Procedure Room 10/05/2025 2:00 PM EST Office Visit [facility] [address] [phone] Aparna Chang MD [address] [place] [phone] documented as of this encounter Visit Diagnoses Not on filedocumented in this encounter Care Teams Hooking Machine Operator Relationship Specialty Start Date End Date Jace Blake DO [address] [place] [phone] PCP - General Family Medicine 08/01/14 documented as of this encounter
--- OUTSIDE RECORDS SUMMARY | 2024-12-19 16:48 | XMS_ITS | Encounter Summary ---
Author Organization [facility] and [facility] Address [address] [place] [phone] Care Team Providers Care Mud Tank Operator Name Role Phone HaydenJace Primary Care Provider [phone] Encounter Details Date Type Department Care Team (Late st Contact Info) Description 05/04/2019 Transcribed Orders [facility] [address] [place] [address] Jana Escalera MD [address] [place] [phone] Granulocytosis (Primary Dx) Social History Tobacco Use Types [...] Up Congestive Heart Failure Program at [address] [place] [address] Diana Coppola MD [address] [place] [phone] 06/07/2025 10:30 AM EDT Follow Up Neuromuscular Medicine at 800 [facility] 800 [facility] [place] [address] Silvestre Maldonado MD 800 [place] [phone] 10/05/2025 12:30 PM EST Appointment [facility] - [address] [address] Aparna Chang MD [address] [place] [phone] Hallway, Pft Walk 10/05/2025 1:00 PM EST Appointment [facility] - [address] [place] [address] Aparna Chang MD [address] [place] [phone] 1, Pft Procedure Room 10/05/2025 2:00 PM EST Office Visit [facility] [address] [phone] Aparna Chang MD [address] [place] [phone] documented as of this encounter Results * Phosphatidylserine Ab IgG, IgM (BH GH LMW Q YH) (05/04/2019 12:08 PM EDT) Phosphatidylserine Ab IgG <10 <10 U/mL 05/06/2019 4:26 AM EDT [facility] Phosphatidylserine Ab IgM <25 <25 U/mL 05/06/2019 4:26 AM EDT [facility] Comment: Phosphatidylserine (IgG) Reference range: ??<10 U/mL ??Negative 10-20 U/mL ??Equivocal - Found in small percentage ?of the healthy population; may be reactive ??>20 U/mL ??Positive - Risk factor for thrombosis ?and loss. Phosphatidylserine (IgM) Reference range: ??<25 U/mL ??Negative 25-35 U/mL ??Equivocal - Found in small percentage ?of the healthy population; may be reactive ??>35 U/mL ??Positive - Risk factor for thrombosis Test Performed at: [facility] [address] [place], [place] ??[phone] Teodoro Shore M.D., Ph.D.,Director of Laboratories Blood Venipuncture / Unknown 05/04/2019 12:08 PM EDT 05/04/2019 12:13 PM EDT us Jana Escalera MD LAB BLOOD ORDERABLES Final Re sult [facility] * (ABNORMAL) Lupus anticoagulant (BH GH L LMW YH) (05/04/2019 12:08 PM EDT) LA1 Screening 83.9(H) 30.0 - 42.0 seconds 05/10/2019 11:30 AM EDT [facility] LA1 + Normal Plasma 40.9 30.0 - 42.0 seconds 05/10/2019 11:30 AM EDT [facility] LA2 Confirmation 51.7(H) 29.0 - 35.0 seconds 05/10/2019 11:30 AM EDT [facility] LA2 + Normal Plasma 36.4(H) 29.0 - 35.0 seconds 05/10/2019 11:30 AM EDT [facility] LA1/LA2 Ratio 1.12 0.90 - 1.30 05/10/2019 11:30 AM EDT [facility] LA Interpretation Elevated LA1 screening/LA2 confirmation result with almost complete correction on mixing studies. The findings are suggestive of possible factor deficiency versus oral anticoagulation therapy. Correlation with clinical findings is advised. Reviewed by Leonardo Wagner on 05.10.2019 11.09 05/10/2019 11:30 AM EDT [facility] Blood Venipuncture / Unknown 05/04/2019 12:08 PM EDT 05/04/2019 12:13 PM EDT Narrative [facility] - 05/10/2019 11:30 AM EDT LA1 screening/LA2 confirmation represents an integrated test system consisting of two dRVVT assays, a screening assay (LA1) with low phospholipid content and a confirmation assay (LA2) with high phospholipid content. Antiphospholipid syndrome (APS) is a systemic autoimmune disorder characterized by venous or arterial thrombosis and/or morbitiy in the presence of persistent laboratory evidence of antiphospholipid antibodies (APA). In patients with initial positive testing for APA, repeat testing after at least 12 weeks is recommended for confirmation. us Jana Escalera MD LAB BLOOD ORDERABLES Final Re sult [facility] [address] [place] [address] * Cardiolipin Abs, IgA, IgG, IgM (BH GH LMW Q YH) (05/04/2019 12:08 PM EDT) Cardiolipin IgA <11 <=11 APL 9 4:12 AM EDT [facility] Comment: Cardiolipin Ab (IgA) Reference Range: Value ? Interpretation ? < or = 11 ? Negative 12 - 20 ? Indeterminate 21 - 80 ? Low to Medium Positive > 80 ?High Positive Cardiolipin IgG <14 <=14 GPL 9 4:12 AM EDT [facility] Comment: Cardiolipin Ab (IgG) Reference Range: Value ? Interpretation ? < or = 14 ? Negative 15 - 20 ? Indeterminate 21 - 80 ? Low to Medium Positive > 80 ?High Positive Cardiolipin IgM <12 <=12 MPL 05/06/201 9 4:12 AM EDT [facility] Comment: Cardiolipin Ab (IgM) Reference Range: Value ? Interpretation ? < or = 12 ? Negative 13 - 20 ? Indeterminate 21 - 80 ? Low to Medium Positive > 80 ?High Positive The antiphospholipid antibody syndrome (APS) is a clinical-pathologic correlation that includes a clinical event (e.g. thrombosis, loss, thrombocytopenia) and persistent positive antiphospho- lipid antibodies (IgM or IgG ANMOL >40 MPL/GPL, IgM or IgG anti-b2GPI antibodies or a lupus anticoagulant). International consensus guidelines for APS suggest waiting at least 12 weeks before retesting to confirm antibody persistence. The [facility] immunological classification criteria for systemic lupus erythematosus (SLE) include testing for isotype IgA, which has yet to be incorpo- rated into APS criteria. Low level antiphospholipid antibodies may sometimes be detected in the setting of infection, drug therapy or aging. Test Performed at: [facility] [address] ??[phone] Teodoro Shore M.D., Ph.D.,Director of Laboratories Blood Venipuncture / Unknown 05/04/2019 12:08 PM EDT 05/04/2019 12:13 PM EDT us Jana Escalera MD LAB BLOOD ORDERABLES Final Re sult [facility] * (ABNORMAL) Antiphospholipid antibody panel (GH LMW Q) (05/04/2019 12:08 PM EDT) Antiphospholipid Ab Panel Interpretation SEE BELOW 05/06/2019 4:27 AM EDT [facility] Comment: The antiphospholipid antibody syndrome (APS) is a clinical-pathologic correlation that includes a clinical event (e.g. ??thrombosis, loss, thrombocytopenia) and persistent positive antiphospho- lipid antibodies (IgM or IgG ANMOL >40 MPL/GPL, IgM or IgG anti-b2GPI antibodies or a lupus anticoagulant). International consensus guidelines for APS suggest waiting at least 12 weeks before retesting to confirm antibody persistence. The [facility] immunological classification criteria for systemic lupus erythematosus (SLE) include testing for isotype IgA, which has yet to be incorpo- rated into APS criteria. Low level antiphospholipid antibodies may sometimes be detected in the setting of infection, drug therapy or aging. B2-Glycoprotein IgG <9 <=20 SGU 05/06 4:27 AM EDT [facility] B2-Glycoprotein IgA <9 <=20 LILLY 05/06 4:27 AM EDT [facility] B2-Glycoprotein IgM 32(H) <=20 [facility]U 05/06 4:27 AM EDT [facility] Phosphatidylserine Ab IgA <20 <20 U/mL 05/06/2019 4:27 AM EDT [facility] Comment: Phosphatidylserine (IgA) Reference range: ??<20 U/mL ??Negative 20-30 U/mL ??Equivocal - Found in small percentage ?of the healthy population; may be reactive ??>30 U/mL ??Positive - Risk factor for thrombosis Phosphatidylserine Ab IgG <10 <10 U/mL 05/06/2019 4:27 AM EDT [facility] Comment: Phosphatidylserine (IgG) Reference range: ??<10 U/mL ??Negative 10-20 U/mL ??Equivocal - Found in small percentage ?of the healthy population; may be reactive ??>20 U/mL ??Positive - Risk factor for thrombosis ?and loss. Phosphatidylserine Ab IgM <25 <25 U/mL 05/06/2019 4:27 AM EDT [facility] Comment: Phosphatidylserine (IgM) Reference range: ??<25 U/mL ??Negative 25-35 U/mL ??Equivocal - Found in small percentage ?of the healthy population; may be reactive ??>35 U/mL ??Positive - Risk factor for thrombosis Cardiolipin IgA <11 <=11 APL 9 4:27 AM EDT [facility] Comment: Cardiolipin Ab (IgA) Reference Range: Value ? Interpretation ? < or = 11 ? Negative 12 - 20 ? Indeterminate 21 - 80 ? Low to Medium Positive > 80 ?High Positive Cardiolipin IgG <14 <=14 GPL 9 4:27 AM EDT [facility] Comment: Cardiolipin Ab (IgG) Reference Range: Value ? Interpretation ? < or = 14 ? Negative 15 - 20 ? Indeterminate 21 - 80 ? Low to Medium Positive > 80 ?High Positive Cardiolipin IgM <12 <=12 MPL 9 4:27 AM EDT [facility] Comment: Cardiolipin Ab (IgM) Reference Range: Value ? Interpretation ? < or = 12 ? Negative 13 - 20 ? Indeterminate 21 - 80 ? Low to Medium Positive > 80 ?High Positive Test Performed at: [facility] [address] [place], [place] ??[phone] Teodoro Shore M.D., Ph.D.,Director of Laboratories Blood Venipuncture / Unknown 05/04/2019 12:08 PM EDT 05/04/2019 12:13 PM EDT us Jana Escalera MD LAB BLOOD ORDERABLES Final Re sult [facility] documented in this encounter Visit Diagnoses Diagnosis Granulocytosis- Primary Other elevated white blood cell count documented in this encounter Care Teams Mud Tank Operator Relationship Specialty Start Date End Date Jace Blake DO [address] [place] [phone] PCP - General Family Medicine 08/01/14 documented as of this encounter
--- OUTSIDE RECORDS SUMMARY | 2024-12-19 16:48 | XMS_ITS | Clinical Summary ---
Author Organization [address] Address [address] [place] [phone] Phone Care Team Providers Care Addiction Counselor Name Role Phone Hayden Jace HATFIELD Primary Care Provider [phone] Allergies No known active allergies Medications multivitamin (THERAGRAN) tablet Take 1 tablet by mouth daily.. 30 tablet 2 05/17/20 17 Active atorvastatin (LIPITOR) 20 MG tablet TAKE 1 TABLET (20 MG TOTAL) BY MOUTH DAILY WITH DINNER.. 30 tablet 06/17/20 17 Active lactobacillus rhamnosus, GG, (CULTURELLE) 10 billion cell capsule Take 1 capsule by mouth daily. Active dexlansoprazole (DEXILANT) 60 mg capsule Take 1 capsule (60 mg total) by mouth daily. Active loperamide (IMODIUM A-D) 2 mg tablet Take 2 tablets (4 mg total) by mouth 2 times daily (0900, 1700). Active metoprolol succinate XL (TOPROL-XL) 100 mg 24 hr tabletIndications: Chronic systolic heart failure (HC Code) (HC CODE) (HC Code) Take 1 tablet (100 mg total) by mouth daily. Take with or immediately following a meal. 90 tablet 3 12/26/19 21 Active Additional Information Patient taking differently:100 mg Oral2 Times Daily (2100, 0600), Take with or immediately following a meal., Reported on 06/17/2023 famotidine (PEPCID) 20 mg tablet TAKE 1 TABLET (20 MG TOTAL) BY MOUTH 2 (TWO) TIMES A DAY NEEDED FOR INDIGESTION OR HEARTBURN. 02/09/20 23 Active zolpidem (AMBIEN) 10 mg tablet 10/28/20 22 Active colestipoL (COLESTID) 1 gram tablet Take 2 tablets (2 g total) by mouth. 04/09/20 23 Active traMADoL (ULTRAM) 50 mg tablet Take 1 tablet (50 mg total) by mouth every 8 (eight) hours as needed for pain. 60 tablet 10/05/20 23 Active Additional Information Patient not taking.Reported on 12/07/2024 empagliflozin (JARDIANCE) 10 mg tabletIndications: Chronic systolic heart failure (HC Code) (HC CODE) (HC Code) Take 1 tablet (10 mg total) by mouth daily. 90 tablet 3 03/16/20 24 025 Active torsemide (DEMADEX) 20 mg tablet Take 1 tablet (20 mg total) by mouth daily. 90 tablet 3 03/16/20 24 Active losartan (COZAAR) 25 mg tabletIndications: Chronic systolic heart failure (HC Code) (HC CODE) (HC Code) Take 1 tablet (25 mg total) by mouth daily. 90 tablet 3 03/16/20 24 Active umeclidinium-vilan teroL (ANORO ELLIPTA) 62.5-25 mcg/actuation blister powder for inhalation Inhale 1 puff into the lungs daily. 60 each 3 10/06/20 24 Active apixaban (ELIQUIS) 5 mg tabletIndications: Dilated cardiomyopathy (HC Code) (HC CODE) (HC Code),Longstanding persistent atrial fibrillation (HC Code) (HC CODE) (HC Code) Take 1 tablet (5 mg total) by mouth 2 (two) times daily. 90 tablet 1 10/24/20 24 Active Miscellaneous Medical Supply Brittani burger. Use as directed. 1 each 12/07/19 25 Active gabapentin (NEURONTIN) 800 mg tablet Take 1.5 tablets (1,200 mg total) by mouth nightly. 135 tablet 1 12/07/19 25 Active ketamine/lidocaine /gabapentin: 10-5-6% topical (compound) Apply topically up to four times daily as needed to feet for symptoms of burning, electricity, and tingling. 60 g 5 12/09/19 25 Active gabapentin (NEURONTIN) 800 mg tablet TAKE 1 TABLET NIGHTLY 90 tablet 10/24/20 24 025 Discontin ued(!Reor diane (No Cancel Msg)) Active Problems Problem Noted Date Diagnosed Date Shortness of breath 05/28/2023 Stage 3 chronic kidney disease (HC CODE) 023 Dilated bile duct 05/28/2023 Restless legs 04/08/2023 Gastroesophageal reflux disease with esophagitis 06/24/2022 Vitamin D deficiency 04/16/2022 Osteopenia 04/16/2022 Impaired fasting glucose 04/16/2022 Epistaxis 04/16/2022 Depressive disorder 04/16/2022 Lupus erythematosus 04/16/2022 Sjogren's syndrome 04/16/2022 Benign colonic polyp 04/16/2022 Chronic obstructive pulmonary disease 04/16/2022 Cobalamin deficiency 04/16/2022 Crohn's disease of large intestine 04/16/2022 Orthostatic hypotension 01/30/2022 UTI (urinary tract infection) 01/05/2022 Overview (05/28/2023): Last Assessment & Plan: Leukocytosis and e coli in UC even though no more than 100,000 Rocephin Last Assessment & Plan: Leukocytosis and e coli in UC even though no more than 100,000 Rocephin Syncope and collapse 12/30/2021 Overview (05/28/2023): Last Assessment & Plan: Suspected to have [...] plane or car. She will see her meat slicer at [place] as soon as she can when she returns. In the interim if she has other issues she may call here to be seen prior to leaving. Last Assessment & Plan: Suspected to have [...] The patient's plan is to return up [place] permanently and they hope to travel in February if her physical condition allows. We discussed issues concerning travel by plane or car. She will see her meat slicer at [place] as soon as she can when she returns. In the interim if she has other issues she may call here to be seen prior to leaving. Interstitial lung disease (HC Code) (HC CODE) Overview (05/28/2023): Last Assessment & Plan: Evaluated at [place] and her interstitial lung disease was not felt to be significantly contributing to her dyspnea and other clinical conditions. Some follow-up CT scans and pulmonary function studies were recommended. Last Assessment & Plan: Evaluated at [facility] and her interstitial lung disease was not felt to be significantly contributing to her dyspnea and other clinical conditions. Some follow-up CT scans and pulmonary function studies were recommended. Class 1 obesity due to exces s calories with serious comorbidity and body mass index (BMI) of 33.0 to 33.9 in adult 12/27/2020 Overview (05/28/2023): Last Assessment & Plan: The patient is asked to make an attempt to improve diet and exercise patterns to aid in medical management of this problem. Last Assessment & Plan: Weight loss encouraged. I offered cardiac rehabilitation but the patient hopes to do some mild exercise on her own. Last Assessment & Plan: The patient is asked to make an attempt to improve diet and exercise patterns to aid in medical management of this problem. Multiple nodules of lung 10/25/2020 Obstructive sleep apnea 10/23/2020 Overview (05/28/2023): Last Assessment & Plan: Has not been able to tolerate CPAP in the past due to claustrophobia. Recommend other alternatives to pulmonary. Last Assessment & Plan: Continue CPAP. Last Assessment & Plan: Has not been able to tolerate CPAP in the past due to claustrophobia. Recommend other alternatives to pulmonary. Anemia 10/23/2020 Overview (05/28/2023): Last Assessment & Plan: HGB was 13 four months ago S/p prbc x1 PPI No overt GIB S/p EGD-->hiatel hernia, c-scope-->no active bleeding GI following monitor Last Assessment & Plan: Suspicion of recent melena, EGD, colonoscopy and capsule endoscopy. Some polyps removed. Anemia improved. She will follow with GI and also follows with hematology. Last Assessment & Plan: HGB was 13 four months ago S/p prbc x1 PPI No overt GIB S/p EGD-->hiatel hernia, c-scope-->no active bleeding GI following monitor Last Assessment & Plan: Recent hospitalization as below with recent upper [...] back to me and I will check Dilated cardiomyopathy (HC Code) (HC CODE) 10/23 Overview (05/28/2023): Last Assessment & Plan: Left ventricular ejection fraction normal. I agree with the recent decrease in the metoprolol succinate and continuation of present Entresto. Present parameters of holding for systolic blood pressure less than 110 seems appropriate. Could consider decreasing Entresto to a half a tablet twice a day. Last Assessment & Plan: Some recent left ventricular dysfunction. Some consideration of repeat attempted coronary sinus lead for [employer]. This was unsuccessful in the past. She is to discuss and review this option with [facility] when she returns there late February of this year. For now continue present Entresto and beta-greg and diuretic. Last Assessment & Plan: Left ventricular ejection fraction normal. I agree with the recent decrease in the metoprolol succinate and continuation of present Entresto. Present parameters of holding for systolic blood pressure less than 110 seems appropriate. Could consider decreasing Entresto to a half a tablet twice a day. Chronic systolic heart failure (HC Code) (HC COD E) 10/03/2020 Pulmonary hypertension 08/31/2020 Overview (08/31/2020): Added automatically from request for surgery [id number] Abnormal liver function tests 08/30/2020 Overview (05/28/2023): Last Assessment & Plan: Noted to have elevated LFTs Hold atorvastatin Labs pending Last Assessment & Plan: Apparently was also to follow with GI. History of fatty liver. Last Assessment & Plan: Noted to have elevated LFTs Hold atorvastatin Labs pending Abnormal chest CT 08/28/2020 Primary hyperparathyroidism 01/31/2020 Idiopathic peripheral neuropathy 05/24/2019 Autoimmune disorder 02/18/2019 Overview (05/28/2023): Last Assessment & Plan: Diagnoses has been uncertain. Has seen rheumatology of [place]. Last Assessment & Plan: To follow-up rheumatology status up [place]. Apparently has lupus and Sjogren's syndrome. Last Assessment & Plan: Diagnoses has been uncertain. Has seen rheumatology of [place]. Benign essential hypertension 02/06/2019 Overview (05/28/2023): Last Assessment & Plan: Blood pressure if anything tending low. See discussion under congestive heart failure and cardiomyopathy concerning medications. Continue to wear compression stockings. Continue to drink plenty of water with modest sodium intake. Last Assessment & Plan: Labile. Will be [...] plenty of water with modest sodium intake. Spinal stenosis of lumbar region 01/14/2019 Osteoarthritis 01/14/2019 Weakness of both lower extremities 10/07/2018 Overview (05/28/2023): Last Assessment & Plan: Some neuropathy and intolerance to medications. Has seen neurology. Follow-up with neurology and/or neurosurgery for back issues. Last Assessment & Plan: Some neuropathy and intolerance to medications. Has seen neurology. Follow-up with neurology and/or neurosurgery for back issues. Paraparesis (HC Code) (HC CODE) 10/07/2018 Other hyperlipidemia 10/06/2018 Overview (05/28/2023): Last Assessment & Plan: Presently on atorvastatin. I recommend follow-up lipids and liver function studies. Had transient liver function abnormalities, alkaline phosphatase, when hospitalized. Last Assessment & Plan: With some coronary disease and vascular disease LDL goal should be lower. Would recommend if tolerated to increase atorvastatin to 40 mg with PCP and other follow-up. Last Assessment & Plan: Presently on atorvastatin. I recommend follow-up lipids and liver function studies. Had transient liver function abnormalities, alkaline phosphatase, when hospitalized. Insomnia 10/06/2018 Anxiety 10/06/2018 Single vessel coronary artery disease 10/06/2018 Neuropathy 09/29/2018 Coronary artery disease invo lving sioux coronary artery of sioux heart with angina pectoris 03/01/2018 Overview (05/28/2023): Last Assessment & Plan: Dual-chamber Medtronic pacemaker. Routinely follows through up [place] meat slicer. Interrogated here with recent syncopal episode. Normal function. Occasional mode switching in atrial high rates without ventricular high rates, 1.4% mode switching.? Ventricular runs. No tracings of that available for my review. We will continue to monitor remotely for now through her up [facility] meat slicer. Last Assessment & Plan: Pacemaker dependent. Medtronic device. Follows remotely through [facility]. Last Assessment & Plan: Dual-chamber Medtronic pacemaker. Routinely follows through [facility] meat slicer. Interrogated here with recent syncopal episode. Normal function. Occasional mode switching in atrial high rates without ventricular high rates, 1.4% mode switching.? Ventricular runs. No tracings of that available for my review. We will continue to monitor remotely for now through her [facility] meat slicer. Last Assessment & Plan: Mild to moderate by cardiac catheterization 2016 and no ischemia by 2018 stress test. Cardiac MRI did not suggest ischemia more recently. No anginal type symptoms. Continue long-term control of cardiovascular risk factors. No aspirin. On Eliquis. Last Assessment & Plan: Mild to moderate by past catheterization 2016. No ischemia 2018 stress test. Cardiac MRI did not suggest ischemia at [place]. No definite angina. Continue medical therapy and control of risk factors. See discussion concerning lipids. Last Assessment & Plan: Mild to moderate by cardiac catheterization 2015 and no ischemia by 2018 stress test. Cardiac MRI did not suggest ischemia more recently. No anginal type symptoms. Continue long-term control of cardiovascular risk factors. No aspirin. On Eliquis. Coronary arteriosclerosis in sioux artery 03/01 Cardiac pacemaker in situ 07/02/2017 S/P biventricular cardiac pacemaker procedure S/P ablation of atrial fibrillation 04/30/2017 [employer] current use of anticoagulant therapy 0 04/30/2017 Overview (05/28/2023): . . Dyslipidemia 04/30/2017 Back pain 03/26/2017 Stenosis of left carotid artery 12/03/2015 Overview (05/28/2023): Last Assessment & Plan: Stable left carotid stenosis by recent ultrasound. No TIA or strokelike symptoms or acute findings on head CT. Continue long-term control of cardiovascular risk factors and follow with her other physicians. Last Assessment & Plan: By history apparently has a 70% stenosis of her carotids, details unknown. Was recommended that she stay on aspirin plus Eliquis. Increased risk of bleeding discussed. She will follow with vascular surgery up at [facility]. Last Assessment & Plan: Stable left carotid stenosis by recent ultrasound. No TIA or strokelike symptoms or acute findings on head CT. Continue long-term control of cardiovascular risk factors and follow with her other physicians. [facility] Memory loss 12/02/2015 Overview (05/28/2023): Last Assessment & Plan: Differential: - seizure - stroke - tia - migraine - TGA Assessment/plan: 1. Episode - m/l TGA - eeg normal, exam non focal. - Ct head no acute findings Last Assessment & Plan: Differential: - seizure - stroke - tia - migraine - TGA Assessment/plan: 1. Episode - m/l TGA - eeg normal, exam non focal. 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 Last Assessment & Plan: D/T tachybrady syndrome Follows in device clinic; most recent interrogation 02/2019 showed normal function. 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 Hemoglobin tending better. Continue iron and hematology follow-up. Last Assessment & Plan: Per pt, treated with iron infusion. Will get follow up labs. Will get records from Hem[facility]Onc [facility] (Dr. Escalera at [facility] in [place], [place]). Last Assessment & Plan: GI evaluation was overall unrevealing. Hemoglobin tending better. Continue iron and hematology follow-up. Fecal incontinence 08/07/2014 Encopresis 07/30/2014 Thyroid nodule 01/25/2014 Overview (05/28/2023): Last Assessment & Plan: BL thyroid nodules - F/u with endocrinology as outpatient IMPRESSION: Bilateral thyroid nodules. Recommend ultrasound guided fine needle aspiration of dominant nodule in the right lobe. Last Assessment & Plan: BL thyroid nodules - F/u with endocrinology as outpatient IMPRESSION: Bilateral thyroid nodules. Recommend ultrasound guided fine needle aspiration of dominant nodule in the right lobe. A-fib (HC Code) (HC CODE) Encounters Date Type Department Care Team Description 12/08/2024 Telephone Neurology at [address] [place] [address] [facility] [place] [address] Silvestre Maldonado MD Other 12/07/2024 11:30 AM EST Follow Up Neuromuscular Medicine at [address] [place] [address] 800 [facility] [place] [address] Silvestre Maldonado MD Idiopathic peripheral neuropathy (Primary Dx) 11/28/2024 Telephone Congestive Heart Failure Program at [address] [place] [address] 2[address] [place] [address] Diana Coppola MD Other (torsemide) 11/17/2024 12:45 PM EST Ancillary Procedure EP [facility] [address] [place] [address] Ariana Ford APRN 11/17/2024 Orders Only EP [facility] [address] [place] [address] Ariana Ford APRN Pacemaker (Primary Dx) 11/05/2024 1:00 PM EST - 11/05/2024 11:59 PM EST Hospital Encounter [facility] CT Scan [address] [place] [address] Aparna Chang MD ILD (interstitial lung disease) (HC Code) (HC CODE) (HC Code); Chronic obstructive pulmonary disease, unspecified COPD type (HC Code) Discharge Disposition: Home or Self Care 11/04/2024 Telephone Electrophysiology & Cardiac Arrhythmia Program [address] [place] [phone] Will Priest MD Other 10/26/2024 Telephone Cardiovascular Medicine at [address] [place] [address] [address] Anand Gurrola APRN Advice Only; Triage 10/24/2024 Scanned Document INTERFACE DEFAULT [address] [place] [phone] System, Provider Not In 10/24/2024 Telephone Congestive Heart Failure Program at [address] [place] [phone] Awa Amezcua APRN Medication Refill (Eliquis ) 10/23/2024 Refill Neuromuscular Medicine at [address] [place] [address] [address] [place] [address] Jozef Dc MD Medication Refill 10/17/2024 Scanned Document INTERFACE DEFAULT [address] [place] [phone] System, Provider Not In 10/06/2024 2:00 PM EST Office Visit [facility] [address] [address] Aparna Chang MD ILD (interstitial lung disease) (HC Code) (HC CODE) (HC Code) (Primary Dx); Chronic obstructive pulmonary disease, unspecified COPD type (HC Code) 10/06/2024 12:51 PM EST - 10/06/2024 11:59 PM EST Hospital Encounter [facility] - [address] [address] Aparna Chang MD 3, Pft Procedure Room Discharge Disposition: Home or Self Care 10/06/2024 12:30 PM EST - 10/06/2024 12:50 PM EST Hospital Encounter [facility] - [address] [address] Aparna Chang MD [facility], Pft Walk ILD (interstitial lung disease) (HC Code) (HC CODE) (HC Code) Discharge Disposition: Home or Self Care from Last 3 Months Immunizations Name Administration Dates Next Due COVID-19, MODERNA 12Y+, 0.5 mL 01/19/2021,2020 COVID-19, MODERNA Booster, 0.25mL 11/26/2021, Influenza, high-dose, split virus, trivalent,(65Yr+),injectable, preservative free 07/17/2020 Influenza, injectable, quad with preservative 07/30/2021,09/11/2020,08/23/2019,09/12 Influenza, quad, adjuvanted, 0.5mL, preservative free 09/11/2020 Influenza, trivalent, inject able, contains preservative 07/30/2021,09/12/2018 Influenza, unspecified formulation 07/17/2020,,10/04/2012 Pneumococcal conjugate PCV 13 09/11/2020, 020 Pneumococcal polysaccharide PPSV23 09/12/2018, ZOSTER LIVE (Zostavax) 07/30/2021 influenza, injectable, quadr ivalent, preservative free, pediatric 08/23/2019 Family History Medical History Relation Name Comments Other (data conversion) Daughter circ ulatory issues in hands Stroke Father Cancer Mother brain Other (data conversion) Son circ ulatory issues in hands Relation Name Status Comments Daughter Alive Father Mother Son Alive Social History Tobacco Use Types Packs/Day Years Used Date Smoking Tobacco: Former Cigarettes 1 40 0 07/14/1972 - 07/14/2012 Smokeless Tobacco: Never Tobacco Cessation:Counseling Given: Not [...] on file Sexual Orientation Not on file Last Filed Vital Signs Vital Sign Reading Time Taken Comments Blood Pressure 125/80 12/07/2024 11:05 AM EST Pulse 67 12/07/2024 11:05 AM EST Temperature 36.9 ??C (98.5 ??F) 12/07/2024 11:[address] Respiratory Rate 18 10/06/2024 2:14 PM EST Oxygen Saturation 97% 12/07/2024 11:05 AM EST Inhaled Oxygen Concentration - - Weight 92.5 kg (204 lb) 12/07/2024 11:05 AM EST Height 182.9 cm (6') 12/07/2024 11:05 AM EST Body Mass Index 27.67 12/07/2024 11:05 AM EST Plan of Treatment Upcoming Encounters Date Type Department Care Team (Late st Contact Info) Description 12/28/2024 10:40 AM EST Follow Up Congestive Heart Failure Program at [address] [place] [address] 2[address] [place] [address] Diana Coppola MD [address] [place] [phone] 06/07/2025 10:30 AM EDT Follow Up Neuromuscular Medicine at [address] [place] [address] [place] [address] Silvestre Maldonado MD [address] [place] [phone] 10/05/2025 12:30 PM EST Appointment [facility] - [address] [place] [address] Aparna Chang MD [address] [place] [phone] [address], Pft Walk 10/05/2025 1:00 PM EST Appointment [facility] - [address] [place] [address] Aparna Chang MD [address] [place] [phone] 1, Pft Procedure Room 10/05/2025 2:00 PM EST Office Visit [facility] [address], [place] [id number] Aparna Chang MD [address] [place] [address], [place] [phone] Health Maintenance Due Date Last Done Comments HIV screening 1961 Tetanus adult (Td q 10,TDAP once) 1968 Lipid disorder screening 1988 Osteoporosis screening (bone density) 2013 Shingles vaccine (Shingrix) (2 of 2 - Shingrix (RZV) 2 Dose Standard Series) 09/29/2021 07/30/2021 Lung Cancer Screening 11/05/2025 11/05/2024 , 03/11/2024, 04/16/2023, Additional history exists Diabetes screening 07/16/2026 07/16/2023, 0 06/05/2023, 04/30/2022, Additional history exists Shingles vaccine (Zostavax) Discontinued 07/30/2021 Pneumo Vaccine 65+ Completed 05/27/2022, 0 04/23/2021, 09/11/2020, Additional history exists Hepatitis C screening Completed 06/15/2023 , 06/05/2023, 06/04/2023, Additional history exists RSV Discussion Completed 10/05/2023 Covid-19 vaccine series Completed 08/15/20, 10/20/2023, 09/01/2023, Additional history exists Influenza vaccine Completed 08/15/2024, , 08/24/2023, Additional history exists Breast cancer screening Discontinued Cervical cancer screening Discontinued Meningococcal Vaccine Aged Out No laura megan eligible based on patient's age to complete this topic Medical Devices Implanted Type Area Senior Software Tester Device Identifier Shelf Expiration Date Model / Serial / Lot Graft, Briiifuse 1 Cm X 5cm - [id number] Implanted:Qty: 2 on 05/12/2017 by Teodoro Hollingsworth MD at [place] [id number] Graft Lumbar: Spine Lumbar MEDTRONIC () 06/07/2018 [id number] / [id number] / Surgiflo Hemostatic Matrix Kit - [id number] Implanted:Qty: 1 on 05/12/2017 by Teodoro Hollingsworth MD at [facility] [address] Other-impla nt Lumbar: Spine Lumbar 05/22/2018 [id number] / / Description:combined with 20 00 units of thrombin- given to surgical site by Ngozi Hale 5cc - [id number] Implanted:Qty: 1 on 05/12/2017 by Teodoro Hollingsworth MD at [facility] [address] Other-impla nt Lumbar: Spine Lumbar [employer]TRON[employer] () 01/13/2019 [id number] / [id number] / Surgiflo Hemostatic Matrix Kit - [id number] Implanted:Qty: 1 on 05/12/2017 by Teodoro Hollingsworth MD at [facility] [address] Other-impla nt Left: Spine Lumbar 12/23/2018 [id number] / / Description:hemostatic matri x with 2000 units of thrombin. Peek Zeferino, 6.35 X 40mm - [id number] Implanted:Qty: 1 on 05/12/2017 by Teodoro Hollingsworth MD at [facility] [address] Zeferino Left: Spine Lumbar 10/01/2021 [id number] / / Description:Left L3-4 Peek Zeferino, 6.35 X 80mm - [id number] Implanted:Qty: 1 on 05/12/2017 by Teodoro Hollingsworth MD at [facility] [address] Zeferino Right: Spine Lumbar 07/28/2019 [id number] / / Description:Right L3-4, S1 Screw, Peek 6.5 X 50mm Legacy - [id number] Implanted:Qty: 4 on 05/12/2017 by Teodoro Hollingsworth MD at [facility] [address] Screw Implant Lumbar: Spine Lumbar [id number] / / Screw, Peek 6.5 X 45mm Legacy - [id number] Implanted:Qty: 1 on 05/12/2017 at [facility] [address] Screw Implant Lumbar: Spine Lumbar [id number] / / Set Screw - [id number] Implanted:Qty: 5 on 05/12/2017 by Teodoro Hollingsworth MD at [facility] [address] Screw Implant Lumbar: Spine Lumbar [id number] / / Pacemaker Procedures Procedure Name Priority Date/Time Associated Diagnosis Comments PACEMAKER INTERROGATION-REMOTE Routine 11/17/2024 12:[address] CHEST WO IV CONTRAST HIGH RESOLUTION ([facility]) Routine 11/05/2024 1:16 PM EST ILD (interstitial lung disease) (HC Code) (HC CODE) (HC Code) Chronic obstructive pulmonary disease, unspecified COPD type (HC Code) LAB SCAN 10/17/2024 12:00 AM EST PULMONARY FUNCTION TEST ([facility] ONLY) Routine 10/06/2024 12:00 AM EST ILD (interstitial lung disease) (HC Code) (HC CODE) (HC Code) COMPREHENSIVE METABOLIC PANEL Routine 07/16/2023 1:03 PM EDT Cardiac pacemaker in situ Preop examination from Last 3 Months or Most Recently Relevant to Health Maintenance Results * Pacemaker Interrogation Remote (11/17/2024 12:44 PM EST) Anatomical Region Laterality Modality Chest Holter Monitor 10/19/2024 4:02 PM EST Narrative 10/19/2024 4:02 PM EST Note: Anand Gurrola - [id number]:[id number] - Presenting rhythm: AP/CHIEF INFORMATICS OFFICER Battery voltage stable. Lead function (sensing/pacing thresholds/impedance) trends stable and within acceptable range. pAF events, AT/AF burden 4.3%. On Eliquis 100% Ventricular paced. Procedure Note Ariana Ford APRN - 11/17/2024 Note: Anand Gurrola - [id number]:02:07.554Z - Presenting rhythm: AP/CHIEF INFORMATICS OFFICER Battery voltage stable. Lead function (sensing/pacing thresholds/impedance) trends stable andwithin acceptable range. pAF events, AT/AF burden 4.3%. On Eliquis 100% Ventricular paced. Ariana Ford APRN CAR DEVICE INTER ORDERABLES Final Result * CT Chest wo IV Contrast High Resolution ([facility]) (11/05/2024 1:16 PM EST) Anatomical Region Laterality Modality Chest Computed Tomogra phy 11/07/2024 10:1 9 AM EST Impressions 11/07/2024 10:37 AM EST There has been an increase in the subpleural reticulation in the lower lungs. Bronchial wall thickening and peribronchial groundglass attenuation in right upper lobe and right middle lobe unchanged. [facility] Radiology Notify System Classification: Routine. Reported and signed by: Amelia Oneal MD [facility] Narrative 11/07/2024 10:[address] CHEST WO IV CONTRAST HIGH RESOLUTION ([facility]) ??Date: ??11/05/2024 1:16 PM INDICATION: Interstitial lung disease ILD. COMPARISON: CT CHEST WO IV CONTRAST HIGH RESOLUTION ([facility]) 2023-04-16 TECHNIQUE: Contiguous CT axial sections were obtained from the upper thorax to the upper abdomen during inspiration and expiration. No intravenous contrast was administered. Coronal and sagittal reformatted images were also provided. Exam quality: Inspiratory and expiratory images were adequate. ??No significant motion artifact. FINDINGS: Lungs/Airways/Pleura: Since the examination of March 2023, there has been slight progression of the subpleural reticulation with predominant lower lobe distribution. Peribronchial groundglass and bronchial wall thickening particularly noticeable in the right upper lobe was also present in the previous study.. Minimal air trapping is previous segment of the lower lobes. Stable bilateral calcified granulomas and tiny noncalcified nodules. Mediastinum/Lymph nodes: Stable prominent but not pathologically enlarged mediastinal lymph nodes. Heart and Vessels: ??Normal heart size. Pacemaker in good position No pericardial effusion. No thoracic aortic aneurysm. ??The pulmonary artery is slightly increased in size consistent with pulmonary hypertension.. Moderate atherosclerotic calcifications of the coronary arteries. Mitral annulus calcification. Visualized Upper Abdomen: Status post cholecystectomy. Bones and Soft Tissues: No suspicious bone lesions. Procedure Note Amelia Oneal MD - 11/07/2024 CT CHEST WO IV CONTRAST HIGH RESOLUTION ([facility]) Date:11/05/2024 1:16 PM INDICATION: Interstitial lung disease ILD. COMPARISON: CT CHEST WO IV CONTRAST HIGH RESOLUTION ([facility])2023-04-16 TECHNIQUE: Contiguous CT axial sections were obtained from the upperthorax to the upper abdomen during inspiration and expiration. Nointravenous contrast was administered. Coronal and sagittal reformattedimages were also provided. Exam quality: Inspiratory and expiratory images were adequate. Nosignificant motion artifact. FINDINGS: Lungs/Airways/Pleura: Since the examination of March 2023, there has beenslight progression of the subpleural reticulation with predominant lowerlobe distribution. Peribronchial groundglass and bronchial wall thickeningparticularly noticeable in the right upper lobe was also present in theprevious study.. Minimal air trapping is previous segment of the lowerlobes. Stable bilateral calcified granulomas and tiny noncalcifiednodules. Mediastinum/Lymph nodes: Stable prominent but not pathologically enlargedmediastinal lymph nodes. Heart and Vessels: Normal heart size. Pacemakerin good position No pericardial effusion. No thoracic aortic aneurysm.The pulmonary artery is slightly increased in size consistent withpulmonary hypertension.. Moderate atherosclerotic calcifications of thecoronary arteries. Mitral annulus calcification. Visualized Upper Abdomen: Status post cholecystectomy. Bones and Soft Tissues: No suspicious bone lesions. IMPRESSION: There has been an increase in the subpleural reticulation in the lowerlungs. Bronchial wall thickening and peribronchial groundglass attenuationin right upper lobe and right middle lobe unchanged. [facility] Radiology Notify System Classification: Routine. Reported and signed by: Amelia Oneal MD [facility] us Aparna Chang MD IMG CT ORDERABLES Fi nal Result * Lab Scan (10/17/2024 12:00 AM EST) us Provider Not In System LAB BLOOD ORDERABLES Yasmin l Result * Pulmonary Function Test ([facility]) (10/06/2024 12:00 AM EST) FVC-Actual Pre-BD 2.49 L CAROLIN SCIENTIFIC PFT FVC-Pre-BD % of Predicted 77 % [employer]IN [employer] PFT FVC-Predicted 3.25 L CAROLIN [employer] PFT FVC-L.L.N 2.27 L CAROLIN [employer] PFT FVC-Pre-BD Z-score -1.26 % [employer]IN [employer] PFT FEV1-Actual Pre-BD 1.70 L CAROLIN [employer] PFT FEV1-Pre-BD % of Predicted 69 % CAROLIN [employer] PFT FEV1-Predicted 2.45 L TOM N SCIENTIFIC PFT FEV1-L.L.N 1.68 L CAROLIN [employer] PFT FEV1-Pre-BD Z-Score -1.6 % CAROLIN [employer] PFT FEV1/FVC-Actua l Pre-BD 68 % CAROLIN [employer] PFT FEV1/FVC-Pre-B D % of Predicted 88 % CAROLIN [employer] PFT FEV1/FVC-L.L.N 64 % TOM N SCIENTIFIC PFT FEV1/FVC-Predi cted 77 L CAROLIN [employer] PFT FEV1/FVC-Pre-B D Z-Score -1.17 % [employer]IN [employer] PFT GZZ32-60-Wzgwi l Pre-BD 0.96 % CAROLIN [employer] PFT BKV95-30-Auini cted 1.87 % [employer]OLIN [employer] PFT AXK69-02-Yhb-A D % of Predicted 51 % [employer]IN [employer] PFT NJQ54-68-Y.L.N 0.81 % TOM Young SCIENTIFIC PFT XZT42-82-Str-M D Z-Score -1.36 % CAROLIN STEVENS PFT PIFR- ACTUAL MEASURED VALUE 3.11 L/s CAROLIN STEVENS PFT PIFR-% PREDICTED 78 % [employer]IN [employer]EV[employer] PFT PEFR-ACTUAL MEASURED VALUE 4.30 L/s CAROLIN STEVENS PFT PEFR-% PREDICTED 72 % CAROLIN STEVENS PFT DLCO (Hb)-Actual Pre-BD 12.47 mL/min/mmH g CAROLIN SCIENT[employer] PFT DLCO (Hb)-Pre-BD % of Predicted 59 % CAROLIN STEVENS PFT DLCO (Hb)-L.L.N 15.76 mL/min/mmH g CAROLIN STEVENS PFT DLCO (Hb)- Predicted 21.17 mL/min/mmH g CAROLIN STEVENS PFT DLCO (Hb)-Pre-BD Z-Score -2.87 % CAROLIN STEVENS PFT DLCO/VA-Actual Pre-BD 3.26 mL/min/mmH g/L CAROLIN STEVENS PFT DLCO/VA-Pre-BD % of Predicted 84 % CAROLIN STEVENS PFT DLCO/VA-L.L.N 2.95 mL/min/mmH g/L CAROLIN STEVENS PFT DLCO/VA- Predicted 3.89 mL/min/mmH g/L CAROLIN STEVENS PFT DLCO/VA-Pre-BD Z-Score -1.08 % CAROLIN STEVENS PFT 10/06/2024 Impressions CAROLIN [employer] PFT - 10/06/2024 12:00 AM EST Spirometry suggests restriction, confirmed by lung volumes. ??Lung volumes reveal mild restriction. ??Mild diffusion impairment. ??As compared with PFTs from 10/08/23 there has been no significant change. Six-minute walk test on room air revealed normal oxygen saturation. ??Distance walked was 1100 feet. us Aparna Chang MD PFT ORDERABLES Yasmin zurita Result CAROLIN STEVENS PFT * (ABNORMAL) Comprehensive metabolic panel (07/16/2023 1:03 PM EDT) Sodium 138 136 - 145 mmol/L 07/16/2023 3:25 PM [facility] Potassium 3.8 3.5 - 5.1 mmol/L 07/16/2023 3:25 PM [facility] Chloride 105 98 - 107 mmol/L 07/16/2023 3:25 PM [facility] CO2 26 21 - 32 mmol/L 07/16/2023 3:25 PM [facility] Anion Gap 7 5 - 15 mmol/L 07/16/2023 3:25 PM [facility] Glucose 87 65 - 110 mg/dL 07/16/2023 3:25 PM [facility] Comment: Non-fasting: ??65-110 mg/dL Fasting (minimum 6 hrs): ??65-99 mg/dL BUN 9 7 - 18 mg/dL 07/16/2023 3:25 PM [facility] Creatinine 1.00 0.55 - 1.02 mg/dL 07/16/2023 3:25 PM [facility] Calcium 9.2 8.5 - 10.1 mg/dL 07/16/2023 3:25 PM [facility] Total Protein 8.3(H) 6.4 - 8.2 g/dL 07/16/2023 3:25 PM [facility] Albumin 3.5 3.4 - 5.0 g/dL 07/16/2023 3:25 PM [facility] Globulin 4.8 2.5 - 5.0 g/dL 07/16/2023 3:25 PM [facility] Total Bilirubin 0.6 0.2 - 1.0 mg/dL 07/16/2023 3:25 PM [facility] Comment:Use of this assay is not recommended for patients undergoing treatment with Eltrombopag due to the potential for falsely elevated results. Alkaline Phosphatase 143(H) 45 - 117 U/L 07/16/2023 3:25 PM [facility] Alanine Aminotransferase (ALT) 22 12 - 78 U/L 07/16/2023 3:25 PM [facility] Aspartate Aminotransferase (AST) 23 15 - 37 U/L 07/16/2023 3:25 PM [facility] eGFR (Creatinine) 59(L) >=60 mL/min/1. 73m2 07/16/2023 3:25 PM EDT [facility] Comment: Values < 60 mL/min/1.73 m2 may indicate CKD if present for more than three months AND creatinine is at steady state. The eGFR provides a rough estimate of kidney function. On 07/08/22 all [facility] Clinical Labs and Epic began using a mrg-xjun-gkjja formula for estimating GFR called CKD-EPI Creatinine 2020. This equation reports eGFR based on creatinine, patient age, clinical sex, and is standardized to a body surface area of 1.73 m2. For the same creatinine, this new race-free eGFR will be lower than prior reported Black eGFR results and higher than prior Non-Black eGFR results. For further guidance, please refer to the CKD: Adult Circuit Court Judge Signature pathway. Blood Venipuncture / Unknown 07/16/2023 1:03 PM EDT 07/16/2023 1:03 PM EDT us Aki Ross MD LAB BLOOD [place]AB[place] [address], [facility] [phone] from Last 3 Months or Most Recently Relevant to Health Maintenance Insurance [facility] Advance Directives * Full ACLS (Latest Code Status on File) Date Activated Date Inactivated Comments 05/15/2017 9:33 PM 05/18/2017 9:43 PM * Full ACLS Date Activated Date Inactivated Comments 05/12/2017 2:29 PM 05/14/2017 3:35 PM * Full Interventions Date Activated Date Inactivated Comments 08/07/2014 9:00 AM 08/09/2014 6:32 PM Care Teams Addiction Counselor Relationship Specialty Start Date End Date Jace Blake DO [address] [place] [address] PCP - General Family Medicine 08/01/14
--- OUTSIDE RECORDS SUMMARY | 2024-12-19 16:48 | XMS_ITS | Encounter Summary ---
Author Organization [facility] and [facility] Address [address] [place] [phone] Care Team Providers Care Net Developer Programmer Name Role Phone Blake, Gary Primary Care Provider [phone] Encounter Details Date Type Department Care Team (Latest Contact Info) Description 04/19/2019 Transcribed Orders [facility] DRAW STATION [facility] [address] [place] [address] Aki Ross MD [address] [address] Paroxysmal atrial fibrillation (HC Code) [...] Follow Up Congestive Heart Failure Program at [address] [place] [address] 2[address] [place] [address] Diana Coppola MD 800 [place] [phone] 06/07/2025 10:30 AM EDT Follow Up Neuromuscular Medicine at 800 [facility] 800 [place] [address] Silvestre Maldonado MD 800 [place] [phone] 10/05/2025 12:30 PM EST Appointment PULMONARY FUNCTION LABORATORY - [address] [address] Aparna Chang MD [address] [place] [phone] Hallway, Pft Walk 10/05/2025 1:00 PM EST Appointment PULMONARY FUNCTION LABORATORY - [address] [place] [address] Aparna Chang MD [address] [place] [phone] 1, Pft Procedure Room 10/05/2025 2:00 PM EST Office Visit [facility] [address] [address] Aparna Chang MD [address] [place] [phone] documented as of this encounter Visit Diagnoses Diagnosis Paroxysmal atrial fibrillation (HC Code) (HC CODE) (HC Code)- Primary Atrial fibrillation documented in this encounter Care Teams Net Developer Programmer Relationship Specialty Start Date End Date Jace Blake DO [address] [place] [address] PCP - General Family Medicine 08/01/14 documented as of this encounter
--- OUTSIDE RECORDS SUMMARY | 2024-12-19 16:48 | XMS_ITS | Encounter Summary ---
Author Organization [facility] Address [address] [place] [address] Care Team Providers Care Photographic Engineer Name Role Phone Jace Blake MD Primary Care Provider Provider, Conversion Unavailable Unavaila Andres Topete MD Unavailable [phone] Aki Ross MD Unavailable [phone] Ursula Boo MD Unavailable [phone] Rocio Youssef PA-C Unavailable Emeterio Valencia MD Unavailable Encounter Details Date Type Department Care Team (Late st Contact Info) Description 06/08/2020 Scanned Document [facility] [address] [place] [phone] Ursula Boo MD [address] [place] [address] Social History Tobacco Use Types Packs/Day Years [...] Office Visit [facility] D[facility] [place] [address] [place] [address] Nico Bailey MD [address] [place] [address] 03/22/2025 1:30 PM EDT Office Visit [place] [address] [place] [phone] Ursula Boo MD [address] [place] [address] 05/04/2025 10:00 AM EDT Office Visit [facility] [place] [address] [address] Aki Ross MD [address] [place] [address] documented as of this encounter Visit Diagnoses Not on filedocumented in this encounter Care Teams Photographic Engineer Relationship Specialty Start Date End Date Jace Blake MD [address] [place] [address] PCP - General Psychiatry, General 05/04/17 ProviderRachid MD 04/27/17 Andres Lakhani MD [address] [place] [address] Mechanical Engineering Specialist Cardiology 07/08/19 Aki Ross MD [address] [place] [address] Primary Mechanical Engineering Specialist Cardiovascular Disease 07/08/19 Ursula Boo MD [address] [place] [address] Gastroenterology 06/07/20 Rocio Youssef PA-C [address] [place] [address] Physician Chain Saw Operator Gastroenterology 06/07/20 Emeterio Valencia MD [address] [place] [address] Clinician Pulmonary Medicine 06/20/20 documented as of this encounter
--- OUTSIDE RECORDS SUMMARY | 2024-12-19 16:48 | XMS_ITS | Encounter Summary ---
Author Organization [facility] Address [address] [place] [address] Care Team Providers Care Skid Strapper Name Role Phone Jace Blake MD Primary Care Provider [phone] Provider, Conversion Unavailable Unavaila Andres Topete MD Unavailable [phone] Aki oRss MD Unavailable [phone] Ursula Boo MD Unavailable [phone] Roico Youssef PA-C Unavailable Emeterio Valencia MD Unavailable Encounter Details Date Type Department Care Team (Late st Contact Info) Description 08/17/2020 Scanned Document [facility] [address] [place] [phone] Eva Suazo MD [facility] [address] [address] Social History Tobacco Use Types Packs/Day Years [...] Description 03/02/2025 1:40 PM EDT Office Visit [facility] Dermatology [place] [address] [place] [address] Nico Bailey MD [address] [place] [phone] 03/22/2025 1:30 PM EDT Office Visit [place] [address] [place] [phone] Ursula Boo MD [address] [place] [address] 05/04/2025 10:00 AM EDT Office Visit [facility] [place] [address] [address] Aki Ross MD [address] [place] [address] documented as of this encounter Visit Diagnoses Not on filedocumented in this encounter Care Teams Skid Strapper Relationship Specialty Start Date End Date Jace Blake MD [address] [place] [address] PCP - General Psychiatry, General 05/04/17 Rachid Robles MD 04/27/17 Andres Lakhani MD [address] [place] [address] Hotel Operation Manager Cardiology 07/08/19 Aki Ross MD [address] [place] [address] Primary Hotel Operation Manager Cardiovascular Disease 07/08/19 Ursula Boo MD [address] [place] [address] Gastroenterology 06/07/20 Rocio Youssef PA-C [address] [place] [address] Physician Bilingual Customer Service Gastroenterology 06/07/20 Emeterio Valencia MD [address] [address] Clinician Pulmonary Medicine 06/20/20 documented as of this encounter
--- OUTSIDE RECORDS SUMMARY | 2024-12-19 16:48 | XMS_ITS | Encounter Summary ---
Author Organization [facility] and [facility] Address [address] [place] [address] Care Team Providers Care Web Graphic Designer Name Role Phone Miguel Angel Blakey Primary Care Provider [phone] Encounter Details Date Type Department Care Team (Late st Contact Info) Description 10/24/2024 Scanned Document INTERFACE DEFAULT [address] [place] [address] System, Provider Not In Social History Tobacco [...] Up Congestive Heart Failure Program at [address] [address] Diana Coppola MD [address] [place] [address] 06/07/2025 10:30 AM EDT Follow Up [facility] Neuromuscular Medicine at 800 [facility] 800 [facility] [place] [address] Silvestre Maldonado MD [address] [place] [address] 10/05/2025 12:30 PM EST Appointment PULMONARY FUNCTION LABORATORY - [address] [address] Aparna Chang MD [address] [place] [phone] Hallway, Pft Walk 10/05/2025 1:00 PM EST Appointment PULMONARY FUNCTION LABORATORY - [address] [address] Aparna Chang MD [address] [place] [phone] 1, Pft Procedure Room 10/05/2025 2:00 PM EST Office Visit [facility] [address] [phone] Aparna Chang MD [address] [place] [phone] documented as of this encounter Visit Diagnoses Not on filedocumented in this encounter Additional Health Concerns Assessment Noted Time PHQ-9 Depression Total Score: 0 03/16/20 24 10:01 AM EDT documented as of this encounter Care Teams Web Graphic Designer Relationship Specialty Start Date End Date Jace Blake DO [address] [place] [address] PCP - General Family Medicine 08/01/14 documented as of this encounter
--- OUTSIDE RECORDS SUMMARY | 2024-12-19 16:48 | XMS_ITS | Encounter Summary ---
Author Organization [facility] and [facility] Address [address] [place] [phone] Care Team Providers Care Flame Annealing Machine Operator Name Role Phone HaydenJace Primary Care Provider [phone] Encounter Details Date Type Department Care Team (Late st Contact Info) Description 06/04/2017 Scanned Document Neurosurgery at [address] [place] [address] Teodoro Hollingsworth MD [address] [place] [phone] Social History Tobacco Use Types Packs/Day [...] Up Congestive Heart Failure Program at [address] [place], [place] [address] Diana Coppola MD [address] [place] [phone] 06/07/2025 10:30 AM EDT Follow Up [facility] Neuromuscular Medicine at 800 [facility] 800 [facility] [place] [address] Silvestre Maldonado MD [address] [place] [phone] 10/05/2025 12:30 PM EST Appointment PULMONARY FUNCTION LABORATORY - [address] [address] Aparna Chang MD [address] [place] [phone] Hallway, Pft Walk 10/05/2025 1:00 PM EST Appointment PULMONARY FUNCTION LABORATORY - [address] [place] [address] Aparna Chang MD [address] [place] [phone] 1, Pft Procedure Room 10/05/2025 2:00 PM EST Office Visit [facility] [address] [phone] Aparna Chang MD [address] [place] [phone] documented as of this encounter Visit Diagnoses Not on filedocumented in this encounter Care Teams Flame Annealing Machine Operator Relationship Specialty Start Date End Date Jace Blake DO [address] [place] [address] PCP - General Family Medicine 08/01/14 documented as of this encounter
--- OUTSIDE RECORDS SUMMARY | 2024-12-19 16:48 | XMS_ITS | Encounter Summary ---
Author Organization [facility] Address [address] [place] [address] Care Team Providers Care Product Promoter Sales Person Name Role Phone Jace Blake MD Primary Care Provider Provider, Conversion Unavailable Unavaila Andres Topete MD Unavailable [phone] Aki Ross MD Unavailable [phone] Ursula Boo MD Unavailable Rocio Youssef PA-C Unavailable [phone] Emeterio Valencia MD Unavailable Encounter Details Date Type Department Care Team (Late st Contact Info) Description 08/29/2020 Scanned Document [facility] [address] [place] [phone] Ursula Boo MD [address] [place] [address] Social History Tobacco Use Types Packs/Day Years [...] [facility] Dermatology [place] [address] [place] [address] Nioc Bailey MD [address] [place] [address] 03/22/2025 1:30 PM EDT Office Visit [place] [address] [place] [phone] Ursula Boo MD [address] [address] 05/04/2025 10:00 AM EDT Office Visit [facility] [place] [address] [address] Aki Ross MD [address] [place] [address] documented as of this encounter Visit Diagnoses Not on filedocumented in this encounter Care Teams Product Promoter Sales Person Relationship Specialty Start Date End Date Jace Blake MD [address] [place] [address] PCP - General Psychiatry, General 05/04/17 ProviderRachid MD 04/27/17 Andres Lakhani MD [address] [place] [address] Hoop Punch And Coiler Operator Cardiology 07/08/19 Aki Ross MD [address] [place] [address] Primary Hoop Punch And Coiler Operator Cardiovascular Disease 07/08/19 Ursula Boo MD [address] [place] [address] Gastroenterology 06/07/20 Rocio Youssef PA-C [address] [place] [address] Physician Oil Truck Driver Gastroenterology 06/07/20 Emeterio Valencia MD [address] [place] [address] Clinician Pulmonary Medicine 06/20/20 documented as of this encounter
--- OUTSIDE RECORDS SUMMARY | 2024-12-19 16:48 | XMS_ITS | Encounter Summary ---
Author Organization [facility] Address [address] [place] [address] Care Team Providers Care Greeter Guest Services Name Role Phone Jace Blake MD Primary Care Provider Provider, Conversion Unavailable Unavaila Andres Topete MD Unavailable [phone] Aki Ross MD Unavailable [phone] Ursula Boo MD Unavailable [phone] Rocio Youssef PA-C Unavailable Emeterio Valencia MD Unavailable Encounter Details Date Type Department Care Team (Late st Contact Info) Description 06/20/2020 Scanned Document [facility] [address] [place] [phone] Ursula Boo MD [address] [place] [address] Social History Tobacco Use Types Packs/Day Years [...] Description 03/02/2025 1:40 PM EDT Office Visit [facility] [place] 35 [place] [address] Nico Bailey MD [address] [place] [address] 03/22/2025 1:30 PM EDT Office Visit [facility] [address] [place] [phone] Ursula Boo MD [address] [place] [address] 05/04/2025 10:00 AM EDT Office Visit [facility] [place] [address] [address] Aki Ross MD [address] [place] [address] documented as of this encounter Visit Diagnoses Not on filedocumented in this encounter Care Teams Greeter Guest Services Relationship Specialty Start Date End Date Jace Blake MD [address] [place] [address] PCP - General Psychiatry, General 05/04/17 Rachid Robles MD 04/27/17 Andres Lakhani MD [address] [place] [address] Pan Helper Cardiology 07/08/19 Aki Ross MD [address] [place] [address] Primary Pan Helper Cardiovascular Disease 07/08/19 Ursula Boo MD [address] [place] [address] Gastroenterology 06/07/20 Rocio Youssef PA-C [address] [place] [address] Physician Supervisor Cigar Making Hand Gastroenterology 06/07/20 Emeterio Valencia MD [address] [place] [address] Clinician Pulmonary Medicine 06/20/20 documented as of this encounter
--- OUTSIDE RECORDS SUMMARY | 2024-12-19 16:48 | XMS_ITS | Encounter Summary ---
Author Organization [facility] and [facility] Address [address] [place] [address] Care Team Providers Care Manager Field Service Name Role Phone HaydenJace Primary Care Provider [phone] Encounter Details Date Type Department Care Team (Late st Contact Info) Description 06/10/2017 Scanned Document Neurosurgery at [address] [place] [address] Teodoro Hollingsworth MD [address] [place] [address] Social History Tobacco Use Types Packs/Day [...] Up Congestive Heart Failure Program at [address] 2nd [place], [place] [address] Diana Coppola MD [address] [place] [phone] 06/07/2025 10:30 AM EDT Follow Up [facility] at 800 [facility] 800 [facility] [place] [address] Silvestre Maldonado MD [address] [place] [phone] 10/05/2025 12:30 PM EST Appointment [facility]ATORY - [address] [address] Aparna Chang MD [address] [place] [phone] Hallway, Pft Walk 10/05/2025 1:00 PM EST Appointment [facility] - [address] [place] [address] Aparna Chang MD [address] [place] [phone] 1, Pft Procedure Room 10/05/2025 2:00 PM EST Office Visit [facility] [address] [phone] Aparna Chang MD [address] [place] [phone] documented as of this encounter Visit Diagnoses Not on filedocumented in this encounter Care Teams Manager Field Service Relationship Specialty Start Date End Date Jace Blake DO [address] [place] [address] PCP - General Family Medicine 08/01/14 documented as of this encounter
--- OUTSIDE RECORDS SUMMARY | 2024-12-19 16:48 | XMS_ITS | Encounter Summary ---
Author Organization [facility] and [facility] Address [address] [place] [address] Care Team Providers Care Glass Blowing Instructor Name Role Phone Blake, Gary Primary Care Provider [phone] Encounter Details Date Type Department Care Team (Late st Contact Info) Description 06/28/2019 Transcribed Orders [facility] 45 [place] [address] Aki Ross MD [address] [address] Social History Tobacco Use Types [...] Follow Up Congestive Heart Failure Program at [address] [place] [address] 2nd [place], [place] [phone] Diana Coppola MD [address] [place] [phone] 06/07/2025 10:30 AM EDT Follow Up [facility] at 800 [facility] 800 [place] [address] Silvestre Maldonado MD 800 [facility] [place] [phone] 10/05/2025 12:30 PM EST Appointment [facility] - [address] [address] Aparna Chang MD [address] [place] [phone] Hallway, Pft Walk 10/05/2025 1:00 PM EST Appointment [facility] - [address] [place] [address] Aparna Chang MD [address] [place] [phone] 1, Pft Procedure Room 10/05/2025 2:00 PM EST Office Visit [facility] [address] [phone] Aparna Chang MD [address] [place] [phone] documented as of this encounter Visit Diagnoses Not on filedocumented in this encounter Care Teams Glass Blowing Instructor Relationship Specialty Start Date End Date Jace Blake DO [address] [place] [phone] PCP - General Family Medicine 08/01/14 documented as of this encounter
--- OUTSIDE RECORDS SUMMARY | 2024-12-19 16:48 | XMS_ITS | Encounter Summary ---
Author Organization [facility] and [facility] Address [address] [place] [place] [address] Care Team Providers Care Department Chair Name Role Phone Miguel Angel Blakey Primary Care Provider [phone] Encounter Details Date Type Department Care Team (Late st Contact Info) Description 05/04/2019 Scanned Document Neurosurgery at [address] [place] [address] Narda Candelaria PA [address] [place] [phone] Social History Tobacco Use Types Packs/Day [...] Congestive Heart Failure Program at [address] [place] [address] Diana Coppola MD [address] [place] [phone] 06/07/2025 10:30 AM EDT Follow Up [facility] at 800 [facility] 800 [facility] [place] [address] Silvestre Maldonado MD 800 [place] [phone] 10/05/2025 12:30 PM EST Appointment [facility] LAB[facility] - [address] [address] Aparna Chang MD [address] [place] [phone] Hallway, Pft Walk 10/05/2025 1:00 PM EST Appointment [facility] - [address] [place] [address] Aparna Chang MD [address] [place] [phone] 1, Pft Procedure Room 10/05/2025 2:00 PM EST Office Visit [facility] [address] [phone] Aparna Chang MD [address] [place] [phone] documented as of this encounter Visit Diagnoses Not on filedocumented in this encounter Care Teams Department Chair Relationship Specialty Start Date End Date Jace Blake DO [address] [place] [address] PCP - General Family Medicine 08/01/14 documented as of this encounter
--- OUTSIDE RECORDS SUMMARY | 2024-12-19 16:48 | XMS_ITS | Encounter Summary ---
Author Organization [facility] and [facility] Address [address] [place] [address] Care Team Providers Care Pain Management Nurse Name Role Phone Miguel Angel Blakey Primary Care Provider [phone] Encounter Details Date Type Department Care Team (Late st Contact Info) Description 06/09/2019 Scanned Document Neurosurgery at [address] [place] [address] Narda Candelaria PA [address] [place] [phone] Social History Tobacco Use Types Packs/Day [...] Up Congestive Heart Failure Program at [address]nd [place] [address] Diana Coppola MD [address] [place] [phone] 06/07/2025 10:30 AM EDT Follow Up [facility] at 800 [facility] 800 [facility] [place] [address] iSlvestre Maldonado MD 800 [place] [phone] 10/05/2025 12:30 PM EST Appointment P[facility] - [address] [address] Aparna Chang MD [address] [place] [phone] Hallway, Pft Walk 10/05/2025 1:00 PM EST Appointment P[facility] - [address] [place] [address] Aparna Chang MD [address] [place] [phone] 1, Pft Procedure Room 10/05/2025 2:00 PM EST Office Visit [facility] [address] [phone] Aparna Chang MD [address] [place] [phone] documented as of this encounter Visit Diagnoses Not on filedocumented in this encounter Care Teams Pain Management Nurse Relationship Specialty Start Date End Date Jace Blake DO [address] [place] [address] PCP - General Family Medicine 08/01/14 documented as of this encounter
--- OUTSIDE RECORDS SUMMARY | 2024-12-19 16:48 | XMS_ITS | Encounter Summary ---
Author Organization [facility] Address [address] [place] [address] Care Team Providers Care Residence Manager Name Role Phone Jace Blake MD Primary Care Provider Provider, Conversion Unavailable Unavaila Andres Topete MD Unavailable [phone] Aki Ross MD Unavailable [phone] Ursula Boo MD Unavailable Rocio Youssef PA-C Unavailable Emeterio Valencia MD Unavailable Encounter Details Date Type Department Care Team ([facility] st Contact Info) Description 06/03/2017 Scanned Document [facility] Heart & Vascular [place] [address] [address] Aki Ross MD [address] [place] [address] 102 [place] [address] Social History Tobacco Use Types [...] Description 03/02/2025 1:40 PM EDT Office Visit [facility] Dermatology [place] 35 [place] [address] Nico Bailey MD 35 [place] [address] 03/22/2025 1:30 PM EDT Office Visit [facility] [address] [place] [phone] Ursula Boo MD [address] [place] [address] 05/04/2025 10:00 AM EDT Office Visit [facility] Heart & Vascular [place] [address] [phone] Aki Ross MD [address] [place] [address] documented as of this encounter Visit Diagnoses Not on filedocumented in this encounter Care Teams Residence Manager Relationship Specialty Start Date End Date Jace Blake MD [address] [place] [address] PCP - General Psychiatry, General 05/04/17 Rachid Robles MD 04/27/17 Andres Lakhani MD [address] [place] [address] Presetter Operator Cardiology 07/08/19 Aki Ross MD [address] [place] [phone] Primary Presetter Operator Cardiovascular Disease 07/08/19 Ursula Boo MD [address] [place] [address] Gastroenterology 06/07/20 Rocio Youssef PA-C [address] [address] Physician Clinical Unit Educator Gastroenterology 06/07/20 Emeterio Valencia MD [address] [address] Clinician Pulmonary Medicine 06/20/20 documented as of this encounter
--- OUTSIDE RECORDS SUMMARY | 2024-12-19 16:48 | XMS_ITS | Encounter Summary ---
Author Organization [facility] Address [address] [place] [address] Care Team Providers Care Speeder Worker Name Role Phone Jace Blake MD Primary Care Provider Provider, Rachid GARCIA Unavailable Unavaila Andres Topete MD Unavailable [phone] Aki Ross MD Unavailable [phone] Ursula Boo MD Unavailable Rocio Youssef PA-C Unavailable Emeterio Valencia MD Unavailable Reason for Visit * Reason Comments Other Encounter Details Date Type Department Care Team ([facility] st Contact Info) Description 06/14/2020 Telephone [facility] Heart & Vascular [place] [address] [address] Aki Ross MD [address] [place] [address] Other Social History Tobacco Use Types Packs/Day [...] encounter Miscellaneous Notes * Telephone Encounter - Shonda Mosquera RN - 06/14/2020 3:24 PM EDT Called back patient to book appointment for Thursday. Episode does correlate to the time she was getting out of the shower, and reiterated that it was a burning pressure for a few minutes. Advised patient to call us again if this happens, and if needed to go to ED if pain does not go away, states understanding. Patient reports complications of possible bleeding and low Hgb, she is seeing a GI doctor and discussions of changing coumadin are in the notes that are scanned into [employer] and patient reported this toRN also. Advised to discuss with SK at upcoming appointment, states understanding. * Telephone Encounter - Aki Ross MD - 06/14/2020 12:12 PM EDT May make a visit in the office next week. Did the episode of atrial fibrillation correlate with her clinical episode? * Telephone Encounter - Shonda Mosquera RN - 06/14/2020 11:10 AM EDT RN called patient back, patient stated that after she got out of the shower she had tight chest pressure, something she states has not felt before, she put her oxygen back on and took her pulse/oxgyen level, HR showed 40's and oxygen was in the 80's but states within a few minutes oxygen was back up to normal. (RN advised that if she was having an episode of AF the home monitor may not be able topick up on it, and give a false pulse reading.) Patient states no chest pressure now, but also states she had an episode of syncope at [facility] a few weeks back and was seen at ED and should be following up with SK but appointment is not until July. RN asked for pacemaker report, device appears to be functioning as intended, brief AF episode at 10:40pm last night lasting 2 minutes and 34 seconds, with Vmax average at 69 bpm. (known AF on coumadin) TE sent to SK for review, possibly see in office before July? Please advise. * Telephone Encounter - April Souza - 06/14/2020 10:59 AM EDT Pt called stating her Attenuator put her on Oxygen for during the day and she states that last night after she showered she felt a burning pressure in her chest. So she checked her HR with the reader and it was 40bpm. she's concerned because her pacer is set at 60 and she's unsure what she should do. Please Advise [phone] * Telephone Encounter - April Souza - 06/14/2020 9:51 AM EDT Pt called stating her Attenuator nut her on Oxygen for during the day and she states that last night after she showed she felt a burning pressure in her chest last night and she checked her HR with he reader and it was 40. she's concerned because her pacer is set at 60 and she's unsure what she should do. Please Advise [phone] documented in this encounter Plan of Treatment Upcoming Encounters Date Type Department Care Team (Late st Contact Info) Description 03/02/2025 1:40 PM EDT Office Visit [facility] Dermatology [address] [address] Nico Bailey MD [address] [place] [address] 03/22/2025 1:30 PM EDT Office Visit [facility] [address] [place] [address] Ursula Boo MD [address] [place] [address] 05/04/2025 10:00 AM EDT Office Visit [facility] Heart & Vascular [place] [address] [phone] Aki Ross MD [address] [place] [address] documented as of this encounter Visit Diagnoses Not on filedocumented in this encounter Care Teams Speeder Worker Relationship Specialty Start Date End Date Jace Blake MD [facility]8 [place] [address] PCP - General Psychiatry, General 05/04/17 ProviderRachid MD 04/27/17 Andres Lakhani MD [address] [place] [address] Retail Associate Manager Bilingual Cardiology 07/08/19 Aki Ross MD [address] [place] [address] Primary Retail Associate Manager Bilingual Cardiovascular Disease 07/08/19 Ursula Boo MD [address] [place] [address] Gastroenterology 06/07/20 Rocio Youssef PA-C [address] [phone] Physician Climate Change Risk Assessor Gastroenterology 06/07/20 Emeterio Valencia MD [address] [place] [address] Clinician Pulmonary Medicine 06/20/20 documented as of this encounter
--- OUTSIDE RECORDS SUMMARY | 2024-12-19 16:50 | XMS_ITS | Encounter Summary ---
Author Organization [facility] Address [address] [place] [address] Care Team Providers Care Field Organizer Name Role Phone Blake, Gary Primary Care Provider [phone] Encounter Details Date Type Department Care Team (Late Contact Info) Description 09/22/2016 Scanned Document Gastrointestinal Cancers Program at [address] [address] Chino Cordova MD PhD [address] [place] [phone] Social History Tobacco Use Types Packs/Day Years [...] Follow Up Congestive Heart Failure Program at [address] [place] [address] 2[address] [place] [address] Diana Coppola MD [address] [place] [address], [place] [phone] 06/07/2025 10:30 AM EDT Follow Up [facility] at 800 [facility] 800 [facility] [place] [address] Silvestre Maldonado MD 800 [facility] [place] [phone] 10/05/2025 12:30 PM EST Appointment PULMONARY FUNCTION LABORATORY - [address] [address] Aparna Chang MD [address] [place] [phone] Hallway, Pft Walk 10/05/2025 1:00 PM EST Appointment PULMON[facility]CTION LABORATORY - [address] [place] [address] Aparna Chang MD [address] [place] [phone] 1, Pft Procedure Room 10/05/2025 2:00 PM EST Office Visit [facility] [address] [phone] Aparna Chang MD [address] [place] [phone] documented as of this encounter Visit Diagnoses Not on filedocumented in this encounter Care Teams Field Organizer Relationship Specialty Start Date End Date Jace Blake DO [address] [place] [address] PCP - General Family Medicine 08/01/14 documented as of this encounter
--- OUTSIDE RECORDS SUMMARY | 2024-12-19 16:50 | XMS_ITS | Encounter Summary ---
Author Organization [facility] Address [address] [place] [address] Care Team Providers Care Chain Mender Name Role Phone Miguel Angel Blakey Primary Care Provider Encounter Details Date Type Department Care Team (Late st Contact Info) Description 03/27/2017 Scanned Document Neurosurgery at [address] [place] [address] Narda Candelaria PA [address] [place] [phone] Social History Tobacco Use Types Packs/Day Years [...] Congestive Heart Failure Program at [address] [place], [place] [address] Diana Coppola MD [address] [place] [phone] 06/07/2025 10:30 AM EDT Follow Up [facility] Neurom[facility] at 800 [facility] 800 [facility] [place] [address] Silvestre Maldonado MD [address] [place] [phone] 10/05/2025 12:30 PM EST Appointment PULMONARY FUNCTION LABORATORY - [address] [address] Aparna Chang MD [address] [place] [phone] Hallway, Pft Walk 10/05/2025 1:00 PM EST Appointment PULMONARY FUNCTION LABORATORY - [address] [place] [address] Aparna Chang MD [address] [place] [phone] 1, Pft Procedure Room 10/05/2025 2:00 PM EST Office Visit [facility] [address] [phone] Aparna Chang MD [address] [place] [phone] documented as of this encounter Visit Diagnoses Not on filedocumented in this encounter Care Teams Chain Mender Relationship Specialty Start Date End Date Jace Blake DO [address] [place] [address] PCP - General Family Medicine 08/01/14 documented as of this encounter
--- OUTSIDE RECORDS SUMMARY | 2024-12-19 16:50 | XMS_ITS | Encounter Summary ---
Author Organization [facility] Address [address] [place] [phone] Care Team Providers Care Beveling Machine Operator Name Role Phone Blake, Gary Primary Care Provider [phone] Encounter Details Date Type Department Care Team (Late Contact Info) Description 09/22/2016 Scanned Document Gastrointestinal Cancers Program at [address] [address] Chino Cordova MD PhD [address] [place] [phone] Social History Tobacco Use Types Packs/Day Years [...] Follow Up Congestive Heart Failure Program at [address] [place] [address] 2nd [place] [address] Diana Coppola MD [address] [place] [address], [place] [phone] 06/07/2025 10:30 AM EDT Follow Up [facility] Neurom[facility] at 800 [facility] 800 [facility] [place] [address] Silvestre Maldonado MD 800 [place] [phone] 10/05/2025 12:30 PM EST Appointment PULMONARY FUNCTION LABORATORY - [address] [address] Aparna Chang MD [address] [place] [phone] Hallway, Pft Walk 10/05/2025 1:00 PM EST Appointment PULMONARY FUNCTION LABORATORY - [address] [place] [address] Aparna Chang MD [address] [place] [phone] 1, Pft Procedure Room 10/05/2025 2:00 PM EST Office Visit [facility] [address] [phone] Aparna Chang MD [address] [place] [phone] documented as of this encounter Visit Diagnoses Not on filedocumented in this encounter Care Teams Beveling Machine Operator Relationship Specialty Start Date End Date Jace Blake DO [address] [place] [address] PCP - General Family Medicine 08/01/14 documented as of this encounter
--- OUTSIDE RECORDS SUMMARY | 2024-12-19 16:50 | XMS_ITS | Encounter Summary ---
Author Organization [facility] Address [address] [place] [address] Care Team Providers Care X Ray Equipment Tester Name Role Phone Miguel Angel Blakey Primary Care Provider [phone] Encounter Details Date Type Department Care Team (Late st Contact Info) Description 04/24/2017 Scanned Document Neurosurgery at [address] [place] [address] Narda Candelaria PA [address] [place] [phone] Social History Tobacco Use Types Packs/Day Years [...] Up Congestive Heart Failure Program at [address] [place], [place] [address] Diana Coppola MD [address] [place] [phone] 06/07/2025 10:30 AM EDT Follow Up [facility] at 800 [facility] 800 [facility] [place] [address] Silvestre Maldonado MD [address] [place] [phone] 10/05/2025 12:30 PM EST Appointment PULMONARY FUNCTION LABORATORY - [address] [address] Aparna Chang MD [address] [place] [phone] Hallway, Pft Walk 10/05/2025 1:00 PM EST Appointment PULMONARY FUNCTION LABORATORY - [address] [place] [address] Aparna Chang MD [address] [place] [phone] 1, Pft Procedure Room 10/05/2025 2:00 PM EST Office Visit [facility] [address] [phone] Aparna Chang MD [address] [place] [phone] documented as of this encounter Visit Diagnoses Not on filedocumented in this encounter Care Teams X Ray Equipment Tester Relationship Specialty Start Date End Date Jace Blake DO [address] [place] [address] PCP - General Family Medicine 08/01/14 documented as of this encounter
--- OUTSIDE RECORDS SUMMARY | 2024-12-19 16:50 | XMS_ITS | Encounter Summary ---
Author Organization [facility] and [facility] Address [address] [place] [phone] Care Team Providers Care Fountain Supervisor Name Role Phone BlakeJace Primary Care Provider Encounter Details Date Type Department Care Team (Late st Contact Info) Description 05/05/2016 Scanned Document Gastrointestinal Surgery at [address] [place] [address] [place] [address] Chino Cordova MD PhD [address] [place] [phone] Social History Tobacco Use Types Packs/Day Years [...] Up Congestive Heart Failure Program at [address] [place] [address] 2[address] [place] [address] Diana Coppola MD [address] [place] [phone] 06/07/2025 10:30 AM EDT Follow Up [facility] at 800 [facility] 800 [place] [address] Silvestre Maldonado MD 800 [facility] [place] [phone] 10/05/2025 12:30 PM EST Appointment PULMONARY FUNCTION LABORATORY - [address] [address] Aparna Chang MD [address] [place] [phone] Hallway, Pft Walk 10/05/2025 1:00 PM EST Appointment PULMONARY FUNCTION LABORATORY - [address] [place] [address] Aparna Chang MD [address] [place] [phone] 1, Pft Procedure Room 10/05/2025 2:00 PM EST Office Visit [facility] [address] [phone] Aparna Chang MD [address] [place] [phone] documented as of this encounter Visit Diagnoses Not on filedocumented in this encounter Care Teams Fountain Supervisor Relationship Specialty Start Date End Date Jace Blake DO [address] [place] [address] PCP - General Family Medicine 08/01/14 documented as of this encounter
--- OUTSIDE RECORDS SUMMARY | 2024-12-19 16:50 | XMS_ITS | Encounter Summary ---
Author Organization [facility] and [facility] Address [address] [place] [phone] Care Team Providers Care Ship Boss Name Role Phone Jace Blake DO Primary Care Provider [phone] Reason for Visit * Reason Onset Date Comments Other 11/28/2024 torsemide Encounter Details Date Type Department Care Team (Late st Contact Info) Description 11/28/2024 Telephone Congestive Heart Failure Program at [address] [place], [place] [address] Diana Coppola MD [address] [place] [phone] Other (torsemide) Social History Tobacco Use Types Packs/Day Years [...] encounter Miscellaneous Notes * Telephone Encounter - Alex Charlton RN - 11/28/2024 9:56 AM EST Spoke to Giovanna in Dr. Blake's office at [facility]. Informed her that after chart review this office did not take her off torsemide. Provided her with Dr. Jaspal Ross office number and date when patient was taken off torsemide. * Telephone Encounter - Francia Vogt - 11/28/2024 9:11 AM EST Giovanna from Dr. Blake's office at [facility] called. Patient was in [facility] ED yesterday (note will be faxed) She mentioned she was taken off torsemide a couple of weeks ago. Pcp would like to know if this is accurate and the reason why. documented in this encounter Plan of Treatment Upcoming Encounters Date Type Department Care Team (Late st Contact Info) Description 12/28/2024 10:40 AM EST Follow Up Congestive Heart Failure Program at [address] [place] [address] 2[address] [place] [address] Diana Coppola MD [address] [place] [phone] 06/07/2025 10:30 AM EDT Follow Up Neuromuscular Medicine at [address] [place] [address] [place] [address] Silvestre Maldonado MD [address] [place] [phone] 10/05/2025 12:30 PM EST Appointment PUL[facility]CTION LAB[facility]ATORY - [address] [place] [address] Aparna Chang MD [address] [place] [phone] Hallway, Pft Walk 10/05/2025 1:00 PM EST Appointment PULMON[facility]CTION LABORATORY - [address] [address] Aparna Chang MD [address] [place] [phone] 1, Pft Procedure Room 10/05/2025 2:00 PM EST Office Visit [facility] [address] [address] Aparna Chang MD [address] [place] [phone] documented as of this encounter Visit Diagnoses Not on filedocumented in this encounter Additional Health Concerns Assessment Noted Time PHQ-9 Depression Total Score: 0 03/16/20 24 10:01 AM EDT documented as of this encounter Care Teams Ship Boss Relationship Specialty Start Date End Date Jace Blake DO [address] [place] [address] PCP - General Family Medicine 08/01/14 documented as of this encounter
--- OUTSIDE RECORDS SUMMARY | 2024-12-19 16:50 | XMS_ITS | Encounter Summary ---
Author Organization [facility] and [facility] Address [address] [place] [address] Care Team Providers Care Hoist Operator Name Role Phone Blake, Gary Primary Care Provider [phone] Encounter Details Date Type Department Care Team (Late st Contact Info) Description 08/01/2014 Scanned Document Electrophysiology & Cardiac Arrhythmia Program [address] [place] [address] Bernard Interiano MD [address] [place] [phone] Social History Tobacco Use Types Packs/Day Years [...] Up Congestive Heart Failure Program at [address] [place] [address] Diana Coppola MD [address] [place] [phone] 06/07/2025 10:30 AM EDT Follow Up [facility] Neu[facility] at 800 [facility] 800 [place] [address] Silvestre Maldonado MD 800 [facility] [place] [phone] 10/05/2025 12:30 PM EST Appointment PUL[facility] LAB[facility]AT[facility] - [address] [address] Aparna Chang MD [address] [place] [phone] Hallway, Pft Walk 10/05/2025 1:00 PM EST Appointment PUL[facility] - [address] [place] [address] Aparna Chang MD [address] [place] [phone] 1, Pft Procedure Room 10/05/2025 2:00 PM EST Office Visit [facility] [address] [phone] Aparna Chang MD [address] [place] [phone] documented as of this encounter Visit Diagnoses Not on filedocumented in this encounter Care Teams Hoist Operator Relationship Specialty Start Date End Date Jace Blake DO [address] [place] [address] PCP - General Family Medicine 08/01/14 documented as of this encounter
--- OUTSIDE RECORDS SUMMARY | 2024-12-19 16:50 | XMS_ITS | Encounter Summary ---
Author Organization [facility] and [facility] Address [address] [place] [phone] Care Team Providers Care Engineering Illustrator Name Role Phone BlakeJace Primary Care Provider [phone] Encounter Details Date Type Department Care Team (Late st Contact Info) Description 06/12/2015 Scanned Document Gastrointestinal Surgery at [address] [place] [address] [place] [address] Chino Cordova MD PhD [address] [place] [phone] Social History Tobacco Use Types Packs/Day Years [...] Follow Up Congestive Heart Failure Program at [address] [place] [address] 2[address] [place] [address] Diana Coppola MD [address] [place] [phone] 06/07/2025 10:30 AM EDT Follow Up [facility] Neu[facility] at 800 [facility] 800 [place] [address] Silvestre Maldonado MD 800 [facility] [phone] 10/05/2025 12:30 PM EST Appointment P[facility] LAB[facility]AT[facility] - [address] [address] Aparna Chang MD [address] [place] [phone] Hallway, Pft Walk 10/05/2025 1:00 PM EST Appointment P[facility] - [address] [place] [address] Aparna Chang MD [address] [place] [phone] 1, Pft Procedure Room 10/05/2025 2:00 PM EST Office Visit [facility] [address] [phone] Aparna Chang MD [address] [place] [phone] documented as of this encounter Visit Diagnoses Not on filedocumented in this encounter Care Teams Engineering Illustrator Relationship Specialty Start Date End Date Jace Blake DO [address] [place] [address] PCP - General Family Medicine 08/01/14 documented as of this encounter
--- OUTSIDE RECORDS SUMMARY | 2024-12-19 16:50 | XMS_ITS | Encounter Summary ---
Author Organization [facility] and [facility] Address [address] [place] [phone] Care Team Providers Care Plant Specialist Name Role Phone BlakeJace Primary Care Provider [phone] Encounter Details Date Type Department Care Team (Late st Contact Info) Description 09/18/2015 Scanned Document Gastrointestinal Surgery at [address] [place] [address] [place] [address] Chino Cordova MD PhD [address] [place] [phone] Social History Tobacco Use Types Packs/Day Years [...] Follow Up Congestive Heart Failure Program at [address] [place] [address] 2[address] [place] [address] Diana Coppola MD [address] [place] [phone] 06/07/2025 10:30 AM EDT Follow Up [facility] Neu[facility] at 800 [facility] 800 [facility] [address] Silvestre Maldonado MD 800 [place] [phone] 10/05/2025 12:30 PM EST Appointment P[facility] LAB[facility]ATORY - [address] [address] Aparna Chang MD [address] [place] [phone] Hallway, Pft Walk 10/05/2025 1:00 PM EST Appointment PUL[facility] LAB[facility]AT[facility] - [address] [place] [address] Aparna Chang MD [address] [place] [phone] 1, Pft Procedure Room 10/05/2025 2:00 PM EST Office Visit [facility] [address] [phone] Aparna Chang MD [address] [place] [phone] documented as of this encounter Visit Diagnoses Not on filedocumented in this encounter Care Teams Plant Specialist Relationship Specialty Start Date End Date Jace Blake DO [address] [place] [address] PCP - General Family Medicine 08/01/14 documented as of this encounter
--- OUTSIDE RECORDS SUMMARY | 2024-12-19 16:50 | XMS_ITS | Encounter Summary ---
Author Organization [facility] and [facility] Address [address] [place] [phone] Care Team Providers Care Back Up Scan Coordinator Name Role Phone BlakeJace Primary Care Provider [phone] Encounter Details Date Type Department Care Team (Late st Contact Info) Description 07/18/2015 Scanned Document Gastrointestinal Surgery at [address] [place] [address] [place] [address] Chino Cordova MD PhD [address] [place] [phone] Social History Tobacco Use Types Packs/Day Years [...] Follow Up Congestive Heart Failure Program at [address] [place] [address] 2nd [place] [address] Diana Coppola MD [address] [place] [phone] 06/07/2025 10:30 AM EDT Follow Up [facility] Neurom[facility] at 800 [facility][Note 2] 800 [facility] [address] Silvestre Maldonado MD 800 [place] [phone] 10/05/2025 12:30 PM EST Appointment PULMONARY FUNCTION LABORATORY - [address] [place] [address] [address] Aparna Chang MD [address] [place] [phone] Hallway, Pft Walk 10/05/2025 1:00 PM EST Appointment PULMON[facility]CTION LABORATORY - [address] [place] [address] Aparna Chang MD [address] [place] [phone] 1, Pft Procedure Room 10/05/2025 2:00 PM EST Office Visit [facility] [address] [phone] Aparna Chang MD [address] [place] [phone] documented as of this encounter Visit Diagnoses Not on filedocumented in this encounter Care Teams Back Up Scan Coordinator Relationship Specialty Start Date End Date Jace Blake DO [address] [place] [address] PCP - General Family Medicine 08/01/14 documented as of this encounter
--- OUTSIDE RECORDS SUMMARY | 2024-12-19 16:50 | XMS_ITS | Encounter Summary ---
Author Organization [facility] and [facility] Address [address] [place] [phone] Care Team Providers Care Systems Software Designer Name Role Phone BlakeJace Primary Care Provider [phone] Encounter Details Date Type Department Care Team (Late st Contact Info) Description 08/04/2014 Scanned Document Gastrointestinal Surgery at [address] [place] [address] [place] [address] Chino Cordova MD PhD [address] [place] [phone] Social History Tobacco Use Types Packs/Day Years [...] Follow Up Congestive Heart Failure Program at [address] [place] [address] 2[address] [place] [address] Diana Coppola MD [address] [place] [phone] 06/07/2025 10:30 AM EDT Follow Up [facility] Neurom[facility] Medicine at [address] [facility] 800 [place] [address] Silvestre Maldonado MD 800 [place] [phone] 10/05/2025 12:30 PM EST Appointment PULMONARY FUNCTION LABORATORY - [address] [address] Aparna Chang MD [address] [place] [phone] Hallway, Pft Walk 10/05/2025 1:00 PM EST Appointment PULMONARY FUNCTION LABORATORY - [address] [place] [address] Aparna Chang MD [address] [place] [phone] 1, Pft Procedure Room 10/05/2025 2:00 PM EST [facility] [address] [phone] Aparna Chang MD [address] [place] [phone] documented as of this encounter Visit Diagnoses Not on filedocumented in this encounter Care Teams Systems Software Designer Relationship Specialty Start Date End Date Jace Blake DO [address] [place] [address] PCP - General Family Medicine 08/01/14 documented as of this encounter
--- OUTSIDE RECORDS SUMMARY | 2024-12-19 16:50 | XMS_ITS | Encounter Summary ---
Author Organization [facility] and [facility] Address [address] [place] [phone] Care Team Providers Care Deicer Repairer Pneumatic Name Role Phone HaydenJace Primary Care Provider [phone] Encounter Details Date Type Department Care Team (Late st Contact Info) Description 07/19/2016 Abstract Neurosurgery at [address] [place] [address] Teodoro Hollingsworth MD [address] [place] [phone] Social History Tobacco Use Types Packs/Day [...] Up Congestive Heart Failure Program at [address] [place], [place] [phone] Diana Coppola MD [address] [place] [phone] 06/07/2025 10:30 AM EDT Follow Up [facility] Neurom[facility] Medicine at 800 [facility] 800 [facility] [place] [address] Silvestre Maldonado MD 800 [facility] [place] [phone] 10/05/2025 12:30 PM EST Appointment PULMONARY FUNCTION LABORATORY - [address] [address] Aparna Chang MD [address] [place] [phone] Hallway, Pft Walk 10/05/2025 1:00 PM EST Appointment PULMONARY FUNCTION LABORATORY - [address] [place] [address] Aparna Chang MD [address] [place] [phone] 1, Pft Procedure Room 10/05/2025 2:00 PM EST Office Visit [facility] [address] [phone] Aparna Chang MD [address] [place] [phone] documented as of this encounter Visit Diagnoses Not on filedocumented in this encounter Care Teams Deicer Repairer Pneumatic Relationship Specialty Start Date End Date Jace Blake DO [address] [place] [address] PCP - General Family Medicine 08/01/14 documented as of this encounter
--- OUTSIDE RECORDS SUMMARY | 2024-12-19 16:50 | XMS_ITS | Encounter Summary ---
Author Organization [facility] and [place] [facility] Address [address] [place] [phone] Care Team Providers Care Paradichlorobenzene Tender Name Role Phone BlakeJace Primary Care Provider [phone] Encounter Details Date Type Department Care Team (Late st Contact Info) Description 06/06/2015 Scanned Document Gastrointestinal Surgery at [address] [place] [address] [place] [address] Chino Cordova MD PhD [address] [place] [phone] Social History Tobacco Use Types Packs/Day Years [...] Follow Up Congestive Heart Failure Program at [address] [place] [address] 2nd [place] [address] Diana Coppola MD [address] [place] [phone] 06/07/2025 10:30 AM EDT Follow Up [facility] Neurom[facility] at 800 [facility] 800 [facility] [place] [address] Silvestre Maldonado MD 800 [place] [phone] 10/05/2025 12:30 PM EST Appointment PULMONARY FUNCTION LABORATORY - [address] [address] Aparna Chang MD [address] [place] [phone] Hallway, Pft Walk 10/05/2025 1:00 PM EST Appointment PULMONARY FUNCTION LABORATORY - [address] [place] [address] Aparna Chang MD [address] [place] [phone] 1, Pft Procedure Room 10/05/2025 2:00 PM EST Office Visit [facility] [address] [phone] Aparna Chang MD [address] [place] [phone] documented as of this encounter Visit Diagnoses Not on filedocumented in this encounter Care Teams Paradichlorobenzene Tender Relationship Specialty Start Date End Date Jace Blake DO [address] [place] [address] PCP - General Family Medicine 08/01/14 documented as of this encounter
--- OUTSIDE RECORDS SUMMARY | 2024-12-19 16:50 | XMS_ITS | Encounter Summary ---
Author Organization [facility] and [facility] Address [address] [place] [phone] Care Team Providers Care Operations Research Manager Name Role Phone HaydenJace Primary Care Provider [phone] Encounter Details Date Type Department Care Team (Late st Contact Info) Description 05/11/2017 Scanned Document Neurosurgery at [address] [place] [address] Teodoro Hollingsworth MD [address] [place] [phone] Social History Tobacco Use Types Packs/Day [...] Up Congestive Heart Failure Program at [address] [place], [place] [address] Diana Coppola MD [address] [place] [phone] 06/07/2025 10:30 AM EDT Follow Up [facility] Neuromuscular Medicine at 800 [facility] 800 [facility] [place] [address] Silvestre Maldonado MD [address] [place] [phone] 10/05/2025 12:30 PM EST Appointment PULMONARY FUNCTION LABORATORY - [address] [address] Aparna Chang MD [address] [place] [phone] Hallway, Pft Walk 10/05/2025 1:00 PM EST Appointment PULMONARY FUNCTION LABORATORY - [address] [place] [address] Aparna Chang MD [address] [place] [phone] 1, Pft Procedure Room 10/05/2025 2:00 PM EST Office Visit [facility] [address] [phone] Aparna Chang MD [address] [place] [phone] documented as of this encounter Visit Diagnoses Not on filedocumented in this encounter Care Teams Operations Research Manager Relationship Specialty Start Date End Date Jace Blake DO [address] [place] [address] PCP - General Family Medicine 08/01/14 documented as of this encounter
--- OUTSIDE RECORDS SUMMARY | 2024-12-19 16:50 | XMS_ITS | Encounter Summary ---
Author Organization [facility] and [facility] Address [address] [place] [phone] Care Team Providers Care Cattle Dipper Name Role Phone Blake, Gary Primary Care Provider [phone] Encounter Details Date Type Department Care Team (Late Contact Info) Description 09/22/2016 Scanned Document Gastrointestinal Cancers Program at [address] [address] Chino Cordova MD PhD [address] [place] [phone] Social History Tobacco Use Types Packs/Day Years [...] Follow Up Congestive Heart Failure Program at [address] [place] [address] [address] [place] [address] Diana Coppola MD [address] [place] [address], [place] [phone] 06/07/2025 10:30 AM EDT Follow Up [facility] Neurom[facility] Medicine at 800 [facility] 800 [facility] [address] Silvestre Maldonado MD 800 [place] [phone] 10/05/2025 12:30 PM EST Appointment PULMONARY FUNCTION LABORATORY - [address] [address] Aparna Chang MD [address] [place] [phone] Hallway, Pft Walk 10/05/2025 1:00 PM EST Appointment PULMONARY FUNCTION LABORATORY - [address] [place] [address] Aparna Chang MD [address] [place] [phone] 1, Pft Procedure Room 10/05/2025 2:00 PM EST Office Visit [facility] [address] [phone] Aparna Chang MD [address] [place] [phone] documented as of this encounter Visit Diagnoses Not on filedocumented in this encounter Care Teams Cattle Dipper Relationship Specialty Start Date End Date Jace Blake DO [address] [place] [address] PCP - General Family Medicine 08/01/14 documented as of this encounter
--- OUTSIDE RECORDS SUMMARY | 2024-12-19 16:51 | XMS_ITS | Data Portability ---
Author Organization [facility] Address [address] [place] [address] Care Team Providers Care Dust Handler Name Role Phone ROSIEGORGE Referring Provider [phone] TIMMY AGEE Referring Provider [phone] Assessment No assessment recorded. Plan of Treatment Reminders Order Date Submit Date Provider Last Modified By Organization Details Last Modified Time Details Appointments None record ed. Lab None record ed. Referral None record ed. Procedures None record ed. Surgeries None record ed. Imaging None record ed. Medication Orders None record ed. Patient TargetsNo targets recorded. Patient InstructionsNo instructions recorded. Reason for Referral None Reported. Results Created Date Observation Date Name Description [...] nthine struct ures appear normal . IMPRES EWDIN: 1. Normal right tempor al bone. 2. [...] ING PHYSIC JOSHUA APPROV ING PHYSIC JOSHUA MCNAIR MD 2019 01:46 PM CW/ 0 01:41 PM Adan arias Copy to: JEOVANNY MONTGOMERY MD [id number] [facility] Scheduling Dept (Imaging) [address] [place] [address], [id number], 08/20/2023 23:04:51 11/26/19 21 11/26/2020 US, abdom en, limit [...] Thank you for trusti ng Radiol ogy [facility] with your referr al. If you are a Health Care Provid er and would like to speak with a Radiol ogist concer jorge this exam, please call . MARIA ELENA MARCUS ND, MD DICTAT ING PHYSIC JOSHUA APPROV ING PHYSIC JOSHUA MARIA ELENA MARCUS ND, MD 2020 09:27 AM 09:27 AM Adan arias Copy to: JEOVANNY MONTGOEMRY MD [id number] [facility] Scheduling Dept (Imaging) [address] [facility], [place], [phone], 08/20/2023 23:04:51 12/12/19 21 12/10/2020 US, thyro id No observ ation record ed. [id number] [facility] Imaging All Locations, [place], [address], 11/04/2024 19:35:31 02/21/20 21 02/15/2021 US, leif delcid s, gordo brantley, limit ed Workst ation: [id number] [...] thromb osis (DVT). Thank you for trusti ng Radiol [facility] Region [facility] with your referr al. If you are a Health Care [facility] er and like to speak with a Radiol ogist concer jorge this exam, please call . KEATON Eason MD DICTAT ING PHYSIC JOSHUA APPROV ING PHYSIC JOSHUA COLBY GALINDO MD 2020 01:48 PM CHG/ 21 04:28 PM Adan sy Copy to: [id number] [facility] Scheduling Dept (Imaging) [address] [place] [address], [id number], 08/20/2023 23:04:51 Result Notes None recorded. Problems Name Problem SNOMED Code Status Onset Date Resolution Date Notes Provider Name and Address Organization Details Recorded Time Iron deficiency anemia 38137428 Active 2014 Violeta pino [facility], [facility] 9 08:42:01 Chronic diastolic heart failure 486912625 [facility] 9 08:42:01 Hypertensi ve disorder 50140640 Active [facility] 9 08:42:01 Left carotid artery stenosis 9710440959617 03 Active 2015 [facility] 9 08:42:01 Cardiac arrhythmia 029711486 Active [facility] 9 08:42:01 Pulmonary hypertensi on 57384825 Active 2013 Violeta pino [facility], [facility] 9 08:42:01 Coronary arterioscl erosis in cahto artery 3303707185184 Active 2017 Violeta pino [facility], [facility] 9 08:42:01 Neuropathy 282278300 Active 2017 [facility] 9 08:42:01 Thyroid nodule 495460339 Active 2013 [facility] 9 08:42:01 Memory impairment 192114021 Active 2015 Violeta pino [facility], [facility] 9 08:42:01 Atrial fibrillati on 29432497 Active 2013 Violeta pino [facility] Physician [facility], [facility] 9 08:42:02 Long-term current use of anticoagul ant 873584468 Active 2016 Violeta pino [facility] Physician [facility], [facility] 9 08:42:02 Irritable bowel syndrome with diarrhea 191992033 Active 2014 Violeta pino [facility], [facility] 9 08:42:02 Paraparesi s 8225506 Active 2017 [facility] 9 08:42:02 Computed tomography result abnormal 200392266 Active 2017 Violeta pino [facility], [facility] 9 08:42:02 Chronic atrial fibrillati on 698693581 Active 2016 Violeta pino [facility], [facility] 9 08:42:02 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 [facility] 9 08:42:02 Osteoarthr itis 757655022 Active 2018 [facility] 9 08:42:01 Spinal stenosis of lumbar region 34270427 Active 2018 Violeta pino [facility], [facility] 9 08:42:01 Idiopathic peripheral neuropathy 75978963 Active 2018 [facility], [facility] 9 08:42:01 History of depression 204529381 Active 2018 Not Available [facility] 18:41:07 Insomnia 537638850 Active 2017 Not Available [facility] 18:41:07 Single coronary vessel disease 489758537 Active 2017 Not Available [facility] 18:41:07 Gastroesop hageal reflux disease 029105022 Active 2017 Not Available [facility] 1 18:41:07 Anemia 071921461 Active 2019 Not Available [facility] 1 18:41:07 Iron deficiency 26149426 Active 2017 Not Available [facility] 1 18:41:07 Congestive heart failure 92667047 Active 2018 35% EF Not Available [facility] 1 18:41:07 Cardiac pacemaker in situ 851199396 Active 2017 Not Available [facility] 1 18:41:07 Multiple nodules of lung 964103923 Active 2019 Not Available [facility] 1 18:41:07 Anxiety 39551638 Active 2017 Not Available [facility] 1 18:41:07 Hyperlipid emia 10605556 Active 2017 Not Available [facility] 1 18:41:08 Essential hypertensi on 70132236 Active 2018 Not Available [facility] 1 18:41:08 Cardiomyop athy 62936497 Active 2019 Not Available [facility] 1 18:41:08 Problem Notes None recorded. Procedures Surgical History Date Name Laterality Status Provider Name and Address Organization Details Recorded Time procedure on neck completed HUY MENDIOLA [facility] 01/13/2019 10:10:31 Appendectomy completed HUY MENDIOLA [facility] 01/13/2019 10:10:39 Tonsillectomy completed HUYTUSHAR MENDIOLA [facility], [facility] 01/13/2019 10:11:03 suture of rectum completed HUY MENDIOLA [facility] 01/13/2019 10:11:28 destruction of lesion completed HUY MENDIOLA [facility] 01/13/2019 10:12:07 Pacemaker implantation completed HUY MENDIOLA [facility] 01/13/2019 10:12:27 Hysterectomy completed Darlene Velasquez [facility] 02/07/2014 09:23:46 Back surgery completed Darlene Velasquez [facility], [facility] 02/07/2014 09:23:46 Knee surgery completed Violeta Rascon [facility], [facility] 12/06/2019 08:25:31 Other completed Darlene Velasquez [facility], [facility] 02/07/2014 09:23:46 Imaging Results Imaging Date Name Status LastModified by Organiz ation Details LastModified Time 12/10/2020 US, thyroid completed [id number] [facility] Imaging Services [facility] Imaging All Locations, [place], [address], 11/04/2024 19:35:31 02/15/2021 US, duplex, venous, extremity, limited completed [id number] Radiology [facility] Scheduling Dept (Imaging) [address] [place] [address], [phone], 08/20/2023 23:04:51 11/06/2020 CT, orbit / sella / posterior fossa / ear, w/o contrast completed [id number] Radiology [facility] Scheduling Dept (Imaging) [address] [place] [address], [phone], 08/20/2023 23:04:51 11/26/2020 US, abdomen, limited completed [id number] [facility] Scheduling Dept (Imaging) [address] [place] [address], [phone], 08/20/2023 23:04:51 Procedure Notes None recorded. Medical Equipment None Reported. Allergies Allergen ID Allergen Name Allergen Category Reaction Reaction Severity Criticality Documentation Date Start Date Code Code System Note Provider Name and Address Organization Details Recorded Time 164748 Iodinated contrast media (substanc e) medicatio n Not available Not available Not available 02/07/2014 37412 2003 SNOMED HUY pino [facility] Physician [facility], [facility] 9 10:09:22 Medications Name Sig Start Date Stop Date Status Note LastModified by Organization Details LastModified Time amoxicillin 500 mg capsule TAKE 1 CAPSULE 3 TIMES A DAY FOR 10 DAYS 02/15 completed Not Available Not Available Not Available atorvastati n 40 mg tablet ONE TABLET DAILY active Not Available Not Available No t Available promethazin e-DM 6.25 mg-15 mg/5 mL oral syrup TAKE 5 ML BY MOUTH 4 TIMES DAILY NEEDED. 01/13 completed Not Available Not Available Not Available prednisone 10 mg tablet 01/13 completed Not Available Not Available Not Available gabapentin 600 mg tablet Take 1 tablet every day by oral route for 90 days. 10/27 completed Not Available Not Available Not Available doxycycline hyclate 100 mg capsule TAKE ONE CAPSULE BY MOUTH 2 TIMES DAILY FOR 10 DAYS 02/15 completed Not Available Not Available Not Available paroxetine 10 mg tablet 01/13 completed Not Available Not Available Not Available atorvastati n 20 mg tablet Take 1 tablet every day by oral route. 10/25 completed Not Available Not Available Not Available torsemide 20 mg tablet 2 tabs daily active Not Available Not Available No t Available albuterol sulfate 2.5 mg/3 mL (0.083 %) solution for nebulizatio n active Not Available Not Available Not Available ibuprofen 800 mg tablet TAEK 1 TABLET 3 TO 4 TIMES A DAYFOR 4 DAYS NEEDED active Not Available Not Available No t Available benzonatate 200 mg capsule TAKE 1 CAP BY MOUTH 3 TIMES DAILY NEEDED FOR COUGH FOR UP TO 10 DAYS. 01/13 completed Not Available Not Available Not Available hydrocodone 5 mg-acetamin ophen 325 mg tablet 01/13 completed Not Available Not Available Not Available ondansetron HCl 4 mg tablet Take 1 tablet 3 times a day by oral route. active Not Available Not Available No t Available clonazepam 0.5 mg tablet Take 1 tablet twice a day by oral route as needed. active Not Available Not Available No t Available fluorouraci l 5 % topical cream 10/27 completed Not Available Not Available Not Available metoprolol succinate ER 100 mg tablet,exte nded release 24 hr ONE DAILY active Not Available Not Available No t Available gabapentin 400 mg capsule 03/16 completed Not Available Not Available Not Available metolazone 5 mg tablet 01/13 completed Not Available Not Available Not Available Toprol XL 50 mg tablet,exte nded release 01/13 completed Not Available Not Available Not Available omeprazole 40 mg capsule,del ayed release 02/01 completed Not Available Not Available Not Available aspirin 81 mg tablet,maxime yed release Take 81 mg by oral route. 2018 active Not Available Not Available Not Avai lable simvastatin 40 mg tablet 01/13 completed Not Available Not Available Not Available prednisone 10 mg tablets in a dose pack 01/13 completed Not Available Not Available Not Available cefadroxil 500 mg capsule 01/13 completed Not Available Not Available Not Available famotidine 20 mg tablet Take 1 tablet every day by oral route. active Not Available Not Available No t Available gabapentin 800 mg tablet TAKE 1 TABLET AT BEDTIME 2021 active Not Available Not Available Not Avai lable dicyclomine 20 mg tablet Take 1 tablet every day by oral route as needed. active Not Available Not Available No t Available amitriptyli ne 10 mg tablet TAKE 1 TABLET BY MOUTH EVERY DAY AT NIGHT active Not Available Not Available No t Available cephalexin 500 mg capsule Take 1 capsule 3 times a day by oral route. 01/13 completed Not Available Not Available Not Available paroxetine 20 mg tablet once daily active Not Available Not Available No t Available cyanocobala min (vit B-12) 1,000 mcg/mL injection solution EVERY MONTH WITH SYRINGES 25 GUAGE, ETOH PADS AND BIOHAZARD BOX. DISP 6 MONTH SUPPLY.*P ALFONSO LIMMIT* active Not Available Not Available No t Available oseltamivir 75 mg capsule TAKE ONE CAPSULE BY MOUTH TWICE A DAY FOR 5 DAYS 01/13 completed Not Available Not Available Not Available lisinopril 10 mg tablet 01/13 completed Not Available Not Available Not Available prednisone 50 mg tablet 01/13 completed Not Available Not Available Not Available warfarin 2 mg tablet 2 mg by oral route. 10/25 completed Not Available Not Available Not Available fluorometho lone 0.1 % eye drops,suspe nsion 01/13 completed Not Available Not Available Not Available metoprolol tartrate 50 mg tablet 2 times daily 10/25 completed Not Available Not Available Not Available gabapentin 300 mg capsule Take 1 capsule every day by oral route. 10/28 completed Not Available Not Available Not Available omeprazole 20 mg capsule,del ayed release Take 1 capsule every day by oral route for 90 days. active Not Available Not Available No t Available codeine 10 mg-guaifene sin 100 mg/5 mL oral liquid TAKE 5 ML BY MOUTH 4 TIMES DAILY NEEDED 01/13 completed Not Available Not Available Not Available zolpidem 5 mg tablet Take 1 tablet every day by oral route. 10/27 completed Not Available Not Available Not Available gabapentin 100 mg capsule 1- 2 tabs in am 10/28 completed Not Available Not Available Not Available ergocalcife rol (vitamin D2) 1,250 mcg (50,000 unit) capsule TAKE 1 CAPSULE BY MOUTH ONE TIME PER WEEK 10/25 completed Not Available Not Available Not Available nystatin 100,000 unit/gram topical powder 01/13 completed Not Available Not Available Not Available lorazepam 1 mg tablet 10/25 completed Not Available Not Available Not Available cefuroxime axetil 500 mg tablet 01/13 completed Not Available Not Available Not Available levofloxaci n 500 mg tablet 01/13 completed Not Available Not Available Not Available levofloxaci n 750 mg tablet 01/13 completed Not Available Not Available Not Available zolpidem 10 mg tablet active Not Available Not Available No t Available doxycycline hyclate 100 mg tablet 01/13 completed Not Available Not Available Not Available loratadine 10 mg tablet TAKE 1 TABLET BY MOUTH EVERY DAY active Not Available Not Available No t Available gentamicin 0.1 % topical ointment active Not Available Not Available Not Available diazepam 5 mg tablet Take 1 tablet every day by oral route as needed for 2 days. 12/11 completed Not Available Not Available Not Available amoxicillin 875 mg-potassiu m clavulanate 125 mg tablet 01/13 completed Not Available Not Available Not Available amoxicillin 500 mg-potassiu m clavulanate 125 mg tablet active Not Available Not Available Not Available Vitamin D 50,000 unit capsule Take 1 capsule every week by oral route. 10/25 completed Not Available Not Available Not Available cholestyram ine (with sugar) 4 gram powder for susp in a packet 01/13 completed Not Available Not Available Not Available Klor-Con M20 mEq tablet,exte nded release 10/25 completed Not Available Not Available Not Available omeprazole magnesium 20 mg tablet,maxime yed release Take 20 mg by oral route. 01/13 completed Not Available Not Available Not Available Alcohol Prep Pads USE DIRECTED active Not Available Not Available No t Available Spiriva with HandiHaler 18 mcg and inhalation capsules 01/13 completed Not Available Not Available Not Available duloxetine 30 mg capsule,del ayed release active Not Available Not Available Not Available duloxetine 60 mg capsule,del ayed release active Not Available Not Available Not Available BD Integra Syringe 3 mL 25 gauge x 5/8 USE DIRECTED active Not Available Not Available No t Available levalbutero l HFA 45 mcg/actuati on aerosol inhaler 01/13 completed Not Available Not Available Not Available Aspir-81 one daily 2017 active Not Available Not Available Not Avai lable Anti Diarrheal active Not Available Not Available No t Available ProAir HFA 90 mcg/actuati on aerosol inhaler TAKE 2 PUFFS 4 TIMES A DAY NEEDED 01/13 completed Not Available Not Available Not Available MoviPrep 100 gram-7.5 gram-2.691 gram oral powder packet 01/13 completed Not Available Not Available Not Available Durezol 0.05 % eye drops 10/27 completed Not Available Not Available Not Available GaviLyte-N 420 gram oral solution 10/25 completed Not Available Not Available Not Available Besivance 0.6 % eye drops,suspe nsion 01/13 completed Not Available Not Available Not Available Prevnar 13 (PF) 0.5 mL intramuscul ar syringe PHARMACY ADMINISTE RED 12/11 completed Not Available Not Available Not Available Dexilant 60 mg capsule, delayed release one capsule by mouth daily active Not Available Not Available No t Available Probiotic take 1 tab daily active Not Available Not Available No t Available Suprep Bowel Prep Kit 17.5 gram-3.13 [...] Available Not Available Vitals Date Recorded Body mass index (BMI) Provider Name and Address Organization Details Last Updated DateTime 10/18/2021 32.6 kg/m2 Not Available [facility] 18:35:18 Date Recorded Body mass index (BMI) Body height Body height Systolic blood pressure Diastolic blood pressure Systolic blood pressure Diastolic blood pressure Systolic blood pressure Diastolic blood pressure Systolic blood pressure Diastolic blood pressure Provider Name and Address Organization Details Last Updated DateTime 32.4 kg/m2 177.8 cm 177.8 cm 106 mm[Hg] 68 mm[Hg] 110 mm[Hg] 70 mm[Hg] 116 mm[Hg] 70 mm[Hg] 166 mm[Hg] 84 mm[Hg] Not Available [facility] 18:35:19 Date Recorded Body height Body height Oxygen saturation Oxygen saturation in Arterial blood by Pulse oximetry Oxygen saturation Oxygen saturation in Arterial blood by Pulse oximetry Oxygen saturation Oxygen saturation in Arterial blood by Pulse oximetry Heart rate Heart rate Heart rate Heart rate Respiratory rate Respiratory rate Provider Name and Address Organization Details Last Updated DateTime 177.8 cm 177.8 cm 98 % 98 % 99 % 99 % 99 % 99 % 86 /min 68 /min 88 /min 120 /min 16 /min 16 /min Not Available [facility] 18:35:20 Date Recorded Respiratory rate Respiratory rate Body temperature Body temperature Body temperature Body temperature Body weight Body weight Provider Name and Address Organization Details Last Updated DateTime 20 /min 18 /min 97.9 [degF] 97.8 [degF] 98.4 [degF] 98.4 [degF] 10 2965. 47 g 124958. 88 g Not Available [facility] 18:35:21 Social History Question Answer Notes LastModified by Organizat ion Details LastModified Time Tobacco Smoking Status Former Smoker KAPIL Maurer - [facility], [facility] 02/07/2014 09:23:45 Do You Have An Advance Directive? No [email or web address] Information not available 02/07/2014 How Much Tobacco Do You Chew? None [email or web address] Information not available 02/07/2014 Which Illicit Or Recreational Drugs Have You Used? No [email or web address] Information not available 02/07/2014 Do You Or Have You Ever Used E-cigarettes Or Vape? 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 02/01/2019 Information not available 06/17/2019 At What Age Did You Start Smoking Tobacco? 23 [email or web address] Information not available 02/07/2014 Do You Or Have You Ever Used Smokeless Tobacco? Never Used Smokeless Tobacco Information not available 11/01/2019 How Much Tobacco Do You Smoke? 1 PPD [email or web address] Information not available 02/07/2014 How Many Years Have You Smoked Tobacco? 40 [email or web address] Information not available 02/07/2014 Sex: Female Functional Status Question Answer Note LastModified by Organization D etails LastModified Time What is your exercise level? None [email or web address] Information not available 02/07/2014 Mental Status None recorded. Family History Relationship Description Onset Age of this Age Resolved Age Notes LastModified by Organization Details LastModified Time Mother Neoplasm of brain 50 [email or web address] Not available 02/22 10:20:59 Father Cerebrovascu lar accident 72 [email or web address] Not available 0 03/13/2014 10:20:59 Medical History Condition Response Cancer (location) N Other N Gout N Thyroid Disease N Kidney Stones N Measles/Mumps N Emphysema/COPD Y Sexually Transmitted Disease N Depression Y Prostate Problems N Vascular Disease N Rash/Skin Condition N Amputation (location) N Parkinson's N Paralysis N Headaches/Migraines Y Cardiac Pacemaker/defibrillator Y Nerve Damage / Neuropathy Y Arthritis Y Sleep disorder/Insomnia Y Heart disease / Heart Attack N Crohn's Disease N HIV/AIDS N Stroke/TIA N Colon Problems Y High Cholesterol Y Serious Injuries N Kidney Disease N Memory Loss/Alzheimer's N Gallbladder disease N High blood pressure N Congestive heart failure Y Falls N Alcohol Overuse N Blood Thinner Treatment Y Hormone Replacement N Nervous Breakdown N Beltran's Esophagus N Anemia Y Urinary Problems N Colon Polyps Y Gastritis N Hospitalizations (other than operations) Y Back pain Y Diabetes N Rheumatic Fever N Bleeding Disorder N Cardiac Arrhythmias /irregular heart rat e N Osteopenia/Osteoporosis Y Anxiety/Stress Y Asthma N Vision Problems Y Erectile / Sexual Dysfunction N Ostomies (location) N Seizures N Jaundice N Hepatitis N Cirrhosis N GERD/Ulcer N Chicken Pox N Allergies (other than meds) Y Gynecological HistoryNo gynecological history recorded. Obstetrics History GPAL:G 2 P 2 0 0 0 Type Value Full Term 2 Total 2 Immunizations Vaccine Type Date Status Note Provider Nam e and Address Organization Details Recorded Time Influenza, split virus, quadrivalent, preservative 9 completed [facility] 10/27/2019 08:29:47 COVID-19, mRNA, LNP-S, PF, 100 mcg/0.5mL dose or 50 mcg/0.25mL dose 1 completed Not Available [facility] 10/18/2021 18:55:54 COVID-19, mRNA, LNP-S, PF, 100 mcg/0.5mL dose or 50 mcg/0.25mL dose 1 completed Not Available [facility] 10/18/2021 18:55:54 Influenza, split virus, quadrivalent, preservative 0 completed Not Available [facility] 10/18/2021 18:55:54 Pneumococcal conjugate PCV 13 0 completed Not Available [facility] 10/18/2021 18:55:54 Past Encounters Encounter ID Performer Location Encounter Start Date Encounter Closed Date Diagnosis/Indication Diagnosis SNOMED-CT Code Diagnosis ICD10 Code Diagnosis Note [id number] [facility] [address] [place] [address] 02/07/2014 08:48:09 02/07/2014 10:14:47 Hyperthyroidism [id number] 02/01/14 TSH <0.006 FT4 3.11 check thyroid scan , continue metoprolol 50 mg/day education provided, ? TMNG vs Graves Vs thyroiditi s pt clinically moldly hyperthyro id Multinodular goiter [id number] 01/23/14 thyroid US: [facility] with right dominant lesion 1 cm ( radiologis t recommends FNA) pending scan will FNA the right lesion [id number] [place] [facility] [address] [place] [address] 02/20/2014 09:21:33 02/20/2014 11:25:17 Hyperthyroidism [id number] 02/01/14 TSH <0.006 FT4 3.11 check thyroid scan , continue metoprolol 50 mg/day education provided, ? TMNG vs Graves Vs thyroiditi s pt clinically moldly hyperthyro id 02/09/14 thyroid scan: 4 hour 1.4% 24 hour 1.9% s/o thyroiditi s monitor the function, repeat labs in 3 weeks , continue metoprolol 50 mg /day [id number] [facility] [address] [place] [address] 03/13/2014 09:13:30 03/13/2014 10:41:33 Hyperthyroidism [id number] 02/01/14 TSH <0.006 FT4 3.11 check thyroid scan , continue metoprolol 50 mg/day education provided, ? TMNG vs Graves Vs thyroiditi s pt clinically moldly hyperthyro id 02/09/14 thyroid scan: 4 hour 1.4% 24 hour 1.9% s/o thyroiditi s monitor the function, repeat labs in 3 weeks , continue metoprolol 50 mg /day 03/08/14 TSH < 0.006 FT4 1.78 continue metoprolol 50 mg/day, labs in 3 weeks again [place] local endo, pt understand s RTO when back [id number] Gorge Osei DO [facility] [address] [place] [address] 01/13/2019 09:32:41 01/13/2019 14:12:23 Anti-nuclear factor detected [id number] R76.8 and DS DNA + Osteoarthritis 668154558 M19.90 Idiopathic peripheral neuropathy 22613457 G60.9 Spinal chuck nosis of lumbar region 21973630 M48.122 [id number] Gorge Osei DO [facility] [place] [address] [place] [address] 02/01/2019 08:37:35 02/01/2019 09:57:36 Idiopathic peripheral neuropathy 39319225 G60.9 Spinal chuck nosis of lumbar region 18998960 M48.061 Osteoarthritis 931981547 M19.90 Anti-nucle ar factor detected 781886084 R76.8 and DS DNA + As well as some cardiolipi n antibodies IgA and IgM Raised ant inuclear antibody 842734282 R76.0 [id number] Ben Alberto MD [address] [address] 10/27/2019 07:55:59 10/27/2019 09:47:34 Hyperparathyroidism 76077934 E21.3 Laboratory evaluation reviewed and discussed with the patient.No rmal calcium metabolism discussed with the patient including the role of PTH and vitamin DDifferent ial diagnosis discussed with the patient.Co unseled on appropriat e work upLabs ordered as below.Foll ow up with results. [id number] Ben Alberto MD [address] [address] 11/01/2019 08:35:27 11/01/2019 09:29:30 Primary hyperparathyroidism 10587526 E21.0 Has picture of mixed hyperparat hyroidism. Suspect early primary hyperparat hyroidism with a secondary component. hypophosph atemia and degree of PTH level not explainabl e by just secondary hyperparat hyroidismA wait urine collection resultsPro ceed with localizati on studiesAdv ised patient re treatment options.If localized recommend to proceed with parathyroi dectomyIf not then conservati ve approach an option depending on patient's preference Secondary hyperparathyroidism 40296400 E21.1 Has vitamin D deficiency Recommend to replenish vitamin D stores.At this point start Drisdol once a weekRisk factors of vitamin D deficiency discussed. Vitamin D deficiency 347 31245 E55.9 Will replace please see above. Hypophosphatemia 4499596 E83.39 Please see above. [id number] Baudilio James MD [address] [place] [address] 12/06/2019 08:17:33 12/06/2019 09:04:56 Hyperparathyroidism 50095047 E21.3 Will refer to [facility] for parathyroi dectomy Hypercalcemia 81037559 E 83.52 [facility] refer to [facility] Thyroid nodule 761619380 E04.1 Will monitor with ultrasound annually. 69728960 [facility] [address] [place] [address] 10/06/2018 00:00:00 02/06/2019 15:54:54 [id number] [facility] [address] [place] [address] 12/20/2018 00:00:00 02/06/2019 16:01:43 [id number] [facility] [address] [place] [address] 09/27/2019 00:00:00 09/27/2019 23:26:03 [id number] [facility] [address] [place] [address] 12/06/2019 00:00:00 12/25/2019 18:18:38 [id number] [facility] [address] [place] [address] 03/16/2020 00:00:00 03/16/2020 12:21:43 [id number] [facility] [address] [place] [address] 10/25/2020 00:00:00 10/25/2020 22:52:20 [id number] [facility] [address] [place] [address] 12/11/2020 00:00:00 12/30/2020 10:08:18 [id number] [facility] [address] [place] [address] 02/15/2021 00:00:00 02/23/2021 09:49:04 [id number] [facility] [address] [place] [address] 09/03/2021 00:00:00 09/03/2021 23:26:37 Health Concerns Section Related Observation LastModified by Organization Detai ls LastModified Time None Recorded Concern Status LastModified by Organization Details LastModified Time None Recorded Advance Directives Directive N: Payers None recorded. Notes Date Note Type Note Provider Name and Address Organization Details Recorded Time 0 text/html Anxiety/DepressionReported bypatient.Quality:symptoms worse in the evening;symptoms worse during the day Duration:frequent Context:major life stressors Modifying Factors:medications as directed Associated Symptoms:depression;insomn ia;sleep disturbances;anhedonia;anx iety with muscle tensionNotes:NEUROPATHY The patient has hx [...] no decline in exercise capacity;shortness of breath;fatigue Not Available [facility], [facility] 03/16/2020 12:21:43 0 text/html HyperlipidemiaReported bypatient.Type of hyperlipidemia:combined Control:not at goal Compliance:noncompliant with diet;does not exercise Complications:coronary artery disease;cardiovascular disease Risk Factors:hypertensionHypert ension IM/FMReported bypatient.Quality:here for check-up Severity:moderate Onset/Timing:gradual onset Context:exertion Alleviating Factors:relieved with rest; medication Self Care:under emotional stress;not watching diet;sedentaryNotes:ABNORM AL LFTs. [place], its unclear what the reason for the elevated LFTs is. She also saw plating engineer for pulmonary HTN, lung nodules. She is on Oxygen now. Has language specialist for follow up a fib. She was told she has cardiomyopathy, pulmonary HTN Saw a reel cutter - no dx of autoimmune disease was made. 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 Will order more tests ANEMIA Had GI work up, which discovered polyps in the intestine. Very few records are avaiable for [place] Not Available [place] [facility] 10/25/2020 22:52:20 1 text/html Medicare Annual Wellness [...] walking; no fall in the past year Not Available [place] [facility] 12/30/2020 10:08:18 1 text/html EdemaReported bypatient.Location:RLE Quality:legs do not swell [...] healing fast. Will xray and start Augmentin Not Available [facility] 02/23/2021 09:49:04 text/html Abdominal PainReported bypatient.Location:LLQ; epigastric Quality:bloating;cramping; aching;burning Severity:moderate Duration:constant Onset/Timing:worse Aggravating Factors:movement; eating Alleviating Factors:nothing gives relief Associated Symptoms:no fever; no chills;nausea;vomiting;con stipation Previous Tests, Treatment and/or Diagnostic Procedures:noneNotes:Was seen in ER 2 days ago Not Available [facility] 09/03/2021 23:26:37 OBGyn Episode No OBEpisode recorded.
== END 2024-12-19 12:21 | disposition home or self-care (01) ==
PROVIDERS: PCP Family Medicine; Visit Provider Internal Medicine Hypertension Specialist
DX: N18.9 Chronic kidney disease, unspecified (principal); E87.6 Hypokalemia
CPT/HCPCS: 99214

== ENCOUNTER → 2024-12-19 11:55 | Outpatient (BNVA) | payer MEDICARE, SELFPAY | PROVIDERS: PCP Family Medicine; Visit Provider Internal Medicine Hypertension Specialist | DX: I13.0 Hypertensive heart and chronic kidney disease with heart failure and stage 1 through stage 4 chronic kidney disease, or unspecified chronic kidney disease (principal); I50.30 Unspecified diastolic (congestive) heart failure; J44.9 Chronic obstructive pulmonary disease, unspecified; E87.6 Hypokalemia; N18.9 Chronic kidney disease, unspecified | CPT/HCPCS: 99212 ==

== ENCOUNTER 2025-03-31 12:55 | Outpatient (REF) | payer MEDICARE, SELFPAY ==
--- OUTSIDE RECORDS SUMMARY | 2025-03-31 12:58 | XMS_ITS | Encounter Summary ---
Author Organization [facility] Address [address] [place] [address] Care Team Providers Care Supervisor Records Change Name Role Phone Jace Blake MD Primary Care Provider [phone] Provider, Rachid GARCIA Unavailable Unavaila Andres Topete MD Unavailable [phone] Aki Ross MD Unavailable [phone] Ursula Boo MD Unavailable [phone] Rocio Youssef PA-C Unavailable Emeterio Valencia MD Unavailable Diana Coppola MD Unavailable Encounter Details Date Type Department Care Team (Late st Contact Info) Description 04/17/2021 Scanned Document [facility] [place] [address] [place] [address] Provider, External, [address] [place] [address] Social History Tobacco Use Types Packs/Day Years Used Date Smoking Tobacco: Former Smokeless Tobacco: Never Alcohol Use Standard Drinks/Week Comments Not Currently 0 (1 standard drink = 0.6 oz pur e alcohol) Comments Unknown Sex and Gender Information Value Date Recorded Sex Assigned at Female 07/21/2023 8:52 AM EDT Legal Sex Female 4:11 PM EDT Gender Identity Female 07/21/2023 8:52 AM [...] Care Team (Late st Contact Info) Description 05/04/2025 10:00 AM EDT Office Visit [facility] [place] [address] [place] [address] Aki Ross MD [address] [place] [address] [address] [place] [address] 05/11/2025 1:40 PM EDT Office Visit [facility] Dermatology [place] [address] [place] [address] Nico Bailey MD [address] [place] [address] documented as of this encounter Visit Diagnoses Not on filedocumented in this encounter Additional Health Concerns Infection Onset Date Last Indicated Resolved Time R/O Gastrointestinal Infection 03/22/2025 03/22/2025 03/23/2025 10:28 PM EDT documented as of this encounter Care Teams Supervisor Records Change Relationship Specialty Start Date End Date Jace Blake MD [address] [place] [address] PCP - General Psychiatry, General 05/04/17 ProviderRachid MD 04/27/17 Andres Lakhani MD [address] [place] [address] Division Sales Manager Cardiology 07/08/19 Aki Ross MD [address] [address] Primary Division Sales Manager Cardiovascular Disease 07/08/19 Ursula Boo MD [address] [address] Gastroenterology 06/07/20 Rocio Youssef PA-C [address] [address] Physician Propagator Gastroenterology 06/07/20 Emeterio Valencia MD [address] [address] Clinician Pulmonary Medicine 06/20/20 Diana Coppola MD [address] [facility] [place] [address] [place] [address] Internal Medicine 03/22/25 documented as of this encounter
--- OUTSIDE RECORDS SUMMARY | 2025-03-31 12:58 | XMS_ITS | Encounter Summary ---
Author Organization [facility] Address [address] [place] [address] Care Team Providers Care Senior Search Marketing Analyst Name Role Phone Jace Blake MD Primary Care Provider Provider, Rachid GARCIA Unavailable Unavaila Andres Topete MD Unavailable [phone] Aki Ross MD Unavailable [phone] Ursula Boo MD Unavailable Rocio Youssef PA-C Unavailable Emeterio Valencia MD Unavailable Diana Coppola MD Unavailable Encounter Details Date Type Department Care Team (Late st Contact Info) Description 11/14/2020 Scanned Document [facility] [address] [place] [address] Ursula Boo MD [address] [place] [phone] Social History Tobacco Use Types Packs/Day Years [...] Description 05/04/2025 10:00 AM EDT Office Visit [facility] Heart & Vascular [place] [address] [phone] Aki Ross MD [address] [place] [address] 05/11/2025 1:40 PM EDT Office Visit [facility] Dermatology [address] [phone] Nico Bailey MD [address] [place] [address] documented as of this encounter Visit Diagnoses Not on filedocumented in this encounter Additional Health Concerns Infection Onset Date Last Indicated Resolved Time R/O Gastrointestinal Infection 03/22/2025 03/22/2025 03/23/2025 10:28 PM EDT documented as of this encounter Care Teams Senior Search Marketing Analyst Relationship Specialty Start Date End Date Jace Blake MD [address] [place] [address] PCP - General Psychiatry, General 05/04/17 Rachid Robles MD 04/27/17 Andres Lakhani MD [address] [place] [address] Gas Usage Meter Clerk Cardiology 07/08/19 Aki Ross MD [address] [place] [address] Primary Gas Usage Meter Clerk Cardiovascular Disease 07/08/19 Ursula Boo MD 45 [facility] [address] [place] [address] Gastroenterology 06/07/20 Rocio Youssef PA-C [address] [place] [address] Physician Working Supervisor Gastroenterology 06/07/20 Emeterio Valencia MD [address] [place] [address] Clinician Pulmonary Medicine 06/20/20 Diana Coppola MD [address] [place] [address] Internal Medicine 03/22/25 documented as of this encounter
--- OUTSIDE RECORDS SUMMARY | 2025-03-31 12:58 | XMS_ITS | Encounter Summary ---
Author Organization [facility] Address [address] [place] [address] Care Team Providers Care Manager Of Health Name Role Phone Jace Blake MD Primary Care Provider Provider, Rachid GARCIA Unavailable Unavaila Andres Topete MD Unavailable [phone] Aki Ross MD Unavailable [phone] Ursula Boo MD Unavailable Rocio Youssef PA-C Unavailable Emeterio Valencia MD Unavailable Diana Coppola MD Unavailable Encounter Details Date Type Department Care Team (Late st Contact Info) Description 04/22/2022 Scanned Document [facility] Heart & Vascular [place] [address] [place] [phone] Provider, Tom, [address] [place] [address] Social History Tobacco Use Types Packs/Day Years Used Date Smoking Tobacco: Former Cigarettes Q uit: 2000 Smokeless Tobacco: Never Alcohol Use Standard Drinks/Week Comments Yes 0 (1 standard drink = 0.6 oz pur e alcohol) 1-2 a month Comments Unknown Sex and Gender Information Value [...] Description 05/04/2025 10:00 AM EDT Office Visit [facility] Heart & Vascular [place] [address] [phone] Aki Ross MD [address] [place] [phone] 05/11/2025 1:40 PM EDT Office Visit [facility] Dermatology [address] [address] Nico Bailey MD [address] [place] [address] documented as of this encounter Visit Diagnoses Not on filedocumented in this encounter Additional Health Concerns Infection Onset Date Last Indicated Resolved Time R/O Gastrointestinal Infection 03/22/2025 03/22/2025 03/23/2025 10:28 PM EDT documented as of this encounter Care Teams Manager Of Health Relationship Specialty Start Date End Date Jace Blake MD [address] [place] [address] PCP - General Psychiatry, General 05/04/17 Rachid Robles MD 04/27/17 Andres Lakhani MD [address] [place] [address] Silvering Applicator Cardiology 07/08/19 Aki Ross MD [address] [place] [address] Primary Silvering Applicator Cardiovascular Disease 07/08/19 Ursula Boo MD [address] [place] [address] Gastroenterology 06/07/20 Rocio Youssef PA-C [address] [place] [address] Physician Software Validation Technician Gastroenterology 06/07/20 Emeterio Valencia MD [address] [place] [address] Clinician Pulmonary Medicine 06/20/20 Diana Coppola MD [address] [address] Internal Medicine 03/22/25 documented as of this encounter
--- OUTSIDE RECORDS SUMMARY | 2025-03-31 12:58 | XMS_ITS | Encounter Summary ---
Author Organization [facility] Address [address] [place] [address] Care Team Providers Care Admiralty Lawyer Name Role Phone Jace Blake MD Primary Care Provider [phone] Provider, Rachid GARCIA Unavailable Unavaila Andres Topete MD Unavailable [phone] Aki Ross MD Unavailable [phone] Ursula Boo MD Unavailable Rocio Youssef PA-C Unavailable Emeterio Valencia MD Unavailable Diana Coppola MD Unavailable Encounter Details Date Type Department Care Team (Late st Contact Info) Description 04/23/2021 Scanned Document [facility] [place] [address] [place] [phone] Provider, Tom, [address] [place] [address] Social History Tobacco Use Types Packs/Day Years [...] [facility] [place] [address] [place] [phone] Aki Ross MD [address] [place] [address] [address] [place] [address] 05/11/2025 1:40 PM EDT Office Visit [facility] Dermatology [place] 35 [place] [phone] Nico Bailey MD [address] [place] [address] documented as of this encounter Visit Diagnoses Not on filedocumented in this encounter Additional Health Concerns Infection Onset Date Last Indicated Resolved Time R/O Gastrointestinal Infection 03/22/2025 03/22/2025 03/23/2025 10:28 PM EDT documented as of this encounter Care Teams Admiralty Lawyer Relationship Specialty Start Date End Date Jace Blake MD [address] [place] [address] PCP - General Psychiatry, General 05/04/17 ProviderRachid MD 04/27/17 Andres Lakhani MD [address] [place] [address] Hardwood Finisher Cardiology 07/08/19 Aki Ross MD [address] [address] Primary Hardwood Finisher Cardiovascular Disease 07/08/19 Ursula Boo MD [address] [address] Gastroenterology 06/07/20 Rocio Youssef PA-C [address] [address] Physician Commercial Instructor Supervisor Gastroenterology 06/07/20 Emeterio Valencia MD [address] [address] Clinician Pulmonary Medicine 06/20/20 Diana Coppola MD 800 [facility] [place] [facility] [address]nd [place] [address] Internal Medicine 03/22/25 documented as of this encounter
--- OUTSIDE RECORDS SUMMARY | 2025-03-31 12:58 | XMS_ITS | Encounter Summary ---
Author Organization [facility] Address [address] [place] [address] Care Team Providers Care Blackjack Supervisor Name Role Phone Jace Blake MD Primary Care Provider [phone] Provider, Rachid GARCIA Unavailable Unavaila Andres Topete MD Unavailable [phone] Aki Ross MD Unavailable [phone] Ursula Boo MD Unavailable Rocio Youssef PA-C Unavailable Emeterio Valencia MD Unavailable Diana Coppola MD Unavailable Reason for Visit * Reason Comments Prior Authorization XIFAXAN 550MG TABLET S Encounter Details Date Type Department Care Team (Late st Contact Info) Description 12/15/2024 Telephone [facility] [address] [place] [address] Ursula Boo MD 5 [facility] [address] [place] [address] Prior Authorization (XIFAXAN 550MG TABLETS) Social History Tobacco Use Types Packs/Day Years Used Date Smoking Tobacco: Former Cigarettes Q uit: 2000 Smokeless Tobacco: Never Alcohol Use Standard Drinks/Week Comments Yes 0 (1 standard drink = 0.6 oz pur e alcohol) once a week Comments Unknown Sex and Gender Information Value Date Recorded Sex Assigned at Female 07/21/2023 8:52 AM EDT Legal Sex Female 4:11 PM EDT Gender Identity Female 07/21/2023 8:52 AM EDT Sexual Orientation Heterosexual (straight) 07/21 8:52 AM EDT documented as of this encounter Miscellaneous Notes * Telephone Encounter - Edie Dhara - 12/15/2024 1:23 PM EST Prior Authorization Approved Medication/Strength: XIFAXAN 550MG TABLETS Quantity/Day Supply: Insurance: [email or web address] Plan Type: MEDICARE Reference Number:N/A Approval Dates: 09/16/2024 through 12/29/2024 May fill with [facility] Pharmacy: YES If lockout, Preferred Pharmacy: NO Copay (>$5 Complete FA Review): 20.00 340B Pricing (subject to change quarterly or on prescription renewal): NO Has patient consented to FA? NO CONSENT ON FILE Additional Information: *eVoucherMsg*Not eligible; Govt Plan * Telephone Encounter - Edie Jules - 12/15/2024 10:47 AM EST Submitted Prior Authorization to DALE De La Cruz via [facility] Estimated turnaround time: 24-72 HOURS TAT Additional Information: (Foster: [id number]) documented in this encounter Plan of Treatment Upcoming Encounters Date Type Department Care Team (Late st Contact Info) Description 05/04/2025 10:00 AM EDT Office Visit [facility] Heart & Vascular [place] [address] [address] Aki Ross MD [address] [place] [phone] 05/11/2025 1:40 PM EDT Office Visit [facility] Dermatology [place] [address] [place] [address] Nico Bailey MD [address] [place] [address] documented as of this encounter Visit Diagnoses Not on filedocumented in this encounter Additional Health Concerns Infection Onset Date Last Indicated Resolved Time R/O Gastrointestinal Infection 03/22/2025 03/22/2025 03/23/2025 10:28 PM EDT documented as of this encounter Care Teams Blackjack Supervisor Relationship Specialty Start Date End Date Jace Blake MD [address] [place] [address] PCP - General Psychiatry, General 05/04/17 ProviderRachid MD 04/27/17 Andres Lakhani MD [address] [place] [address] Feather Shaper Cardiology 07/08/19 Aki Ross MD [address] [place] [address] Primary Feather Shaper Cardiovascular Disease 07/08/19 Ursula Boo MD [address] [place] [address] Gastroenterology 06/07/20 Rocio Youssef PA-C [address] [address] Physician Center Machine Operator Gastroenterology 06/07/20 Emeterio Valencia MD [address] [address] Clinician Pulmonary Medicine 06/20/20 Diana Coppola MD [address] Michael Lira [address] [place] [address] Internal Medicine 03/22/25 documented as of this encounter
--- OUTSIDE RECORDS SUMMARY | 2025-03-31 12:58 | XMS_ITS | Encounter Summary ---
Author Organization [facility] Address [address] [place] [address] Care Team Providers Care Quality Assurance Supervisor Body Name Role Phone Jace Blake MD Primary Care Provider [phone] Provider, Rachid GARCIA Unavailable Unavaila Andres Topete MD Unavailable [phone] Aki Ross MD Unavailable [phone] Ursula Boo MD Unavailable Rocio Youssef PA-C Unavailable Emeterio Valencia MD Unavailable Diana Coppola MD Unavailable Encounter Details Date Type Department Care Team (Late st Contact Info) Description 08/30/2020 Telephone [facility] [address] [place] [address] Ursula Boo MD [address] [place] [phone] Social History Tobacco Use Types Packs/Day [...] [facility] [place] 45 [facility] 102 [place] [address] Aki Ross MD [address] [place] [address] 102 [place] [address] 05/11/2025 1:40 PM EDT Office Visit [facility] Dermatology [place] 35 [place] [address] Nico Bailey MD [address] [place] [address] documented as of this encounter Visit Diagnoses Not on filedocumented in this encounter Additional Health Concerns Infection Onset Date Last Indicated Resolved Time R/O Gastrointestinal Infection 03/22/2025 03/22/2025 03/23/2025 10:28 PM EDT documented as of this encounter Care Teams Quality Assurance Supervisor Body Relationship Specialty Start Date End Date Jace Blake MD [address] [place] [address] PCP - General Psychiatry, General 05/04/17 ProviderRachid MD 04/27/17 Andres Lakhani MD [address] [place] [address] External Grinder Tender Cardiology 07/08/19 Aki Ross MD [address] [address] Primary External Grinder Tender Cardiovascular Disease 07/08/19 Ursula Boo MD [address] [address] Gastroenterology 06/07/20 Rocio Youssef PA-C [address] [address] Physician Ordering Box Operator Gastroenterology 06/07/20 Emeterio Valencia MD [address] [address] Clinician Pulmonary Medicine 06/20/20 Diana Coppola MD [address] [address] Internal Medicine 03/22/25 documented as of this encounter
--- OUTSIDE RECORDS SUMMARY | 2025-03-31 12:58 | XMS_ITS | Encounter Summary ---
Author Organization [facility] Address [address] [place] [address] Care Team Providers Care Filling And Packing Supervisor Name Role Phone Jace Blake MD Primary Care Provider Provider, Rachid GARCIA Unavailable Unavaila Andres Topete MD Unavailable [phone] Aki Ross MD Unavailable [phone] Ursula Boo MD Unavailable Rocio Youssef PA-C Unavailable [phone] Emeterio Valencia MD Unavailable Diana Coppola MD Unavailable Encounter Details Date Type Department Care Team (Late st Contact Info) Description 04/29/2022 Telephone [facility] [address] [place] [address] Tl Mancera, TOBACCO PREVENTION HEALTH EDUCATOR 5 [facility] 2 [place] [address] Social History Tobacco Use Types Packs/Day [...] we could fax her labs to the [facility] lab. Pt said she misplace her slip and the [facility] lab uses the [facility] system. Pt is currently at the lab waiting. Please advise documented in this encounter Plan of Treatment Upcoming Encounters Date Type Department Care Team ([facility] st Contact Info) Description 05/04/2025 10:00 AM EDT Office Visit [facility] [place] [address] [phone] Aki Ross MD [address] [place] [address] 05/11/2025 1:40 PM EDT Office Visit [facility] [address] [phone] Nico Bailey MD [address] [place] [address] documented as of this encounter Visit Diagnoses Not on filedocumented in this encounter Additional Health Concerns Infection Onset Date Last Indicated Resolved Time R/O Gastrointestinal Infection 03/22/2025 03/22/2025 03/23/2025 10:28 PM EDT documented as of this encounter Care Teams Filling And Packing Supervisor Relationship Specialty Start Date End Date Jace Blake MD [address] [place] [address] PCP - General Psychiatry, General 05/04/17 Rachid Robles MD 04/27/17 Andres Lakhani MD [address] [place] [address] Core Driller Cardiology 07/08/19 Aki Ross MD [address] [place] [address] Primary Core Driller Cardiovascular Disease 07/08/19 Ursula Boo MD [address] [place] [address] Gastroenterology 06/07/20 Rocio Youssef PA-C [address] [place] [address] Physician Decatizer Gastroenterology 06/07/20 Emeterio Valencia MD [address] [address] Clinician Pulmonary Medicine 06/20/20 Diana Coppola MD [address] [address] Internal Medicine 03/22/25 documented as of this encounter
--- OUTSIDE RECORDS SUMMARY | 2025-03-31 12:58 | XMS_ITS | Encounter Summary ---
Author Organization [facility] Address [address] [place] [address] Care Team Providers Care Medical Translator Name Role Phone Jace Blake MD Primary Care Provider [phone] Provider, Rachid GARCIA Unavailable Unavaila Andres Topete MD Unavailable [phone] Aki Ross MD Unavailable [phone] Ursula Boo MD Unavailable [phone] Rocio Youssef PA-C Unavailable Emeterio Valencia MD Unavailable Diana Coppola MD Unavailable Encounter Details Date Type Department Care Team (Late st Contact Info) Description 03/28/2025 Telephone [facility] [address] [address] Ursula Boo MD [address] [place] [phone] Social History Tobacco Use Types Packs/Day [...] encounter Miscellaneous Notes * Telephone Encounter - Radha Paul - 03/28/2025 10:34 AM EDT Pt would like a call about her fecal test she had done, and labs documented in this encounter Plan of Treatment Upcoming Encounters Date Type Department Care Team (Late st Contact Info) Description 05/04/2025 10:00 AM EDT Office Visit [facility] [place] [address] [phone] Aki Ross MD [address] [place] [address] 05/11/2025 1:40 PM EDT Office Visit [facility] Dermatology [address] [phone] Nico Bailey MD [address] [place] [address] documented as of this encounter Visit Diagnoses Not on filedocumented in this encounter Care Teams Medical Translator Relationship Specialty Start Date End Date Jace Blake MD [address] [place] [address] PCP - General Psychiatry, General 05/04/17 ProviderRachid MD 04/27/17 Andres Lakhani MD [address] [place] [address] Animal Assisted Therapist Cardiology 07/08/19 Aki Ross MD [address] [address] Primary Animal Assisted Therapist Cardiovascular Disease 07/08/19 Ursula Boo MD [address] [address] Gastroenterology 06/07/20 Rocio Youssef PA-C [address] [facility] 4 [place] [address] Physician Director Oracle Gastroenterology 06/07/20 Emeterio Valencia MD [address] [address] Clinician Pulmonary Medicine 06/20/20 Diana Coppola MD [address] [address] Internal Medicine 03/22/25 documented as of this encounter
--- OUTSIDE RECORDS SUMMARY | 2025-03-31 12:58 | XMS_ITS | Encounter Summary ---
Author Organization [facility] Address [address] [place] [address] Care Team Providers Care Set Builder Name Role Phone Jace Blake MD Primary Care Provider Provider, Rachid GARCIA Unavailable Unavaila Andres Topete MD Unavailable [phone] Aki Ross MD Unavailable [phone] Ursula Boo MD Unavailable Rocio Youssef PA-C Unavailable Emeterio Valencia MD Unavailable Diana Coppola MD Unavailable Encounter Details Date Type Department Care Team (Late st Contact Info) Description 04/30/2023 Scanned Document [facility] [address] [place] [address] Ursula Boo MD [address] [place] [phone] Social History Tobacco Use Types Packs/Day [...] Description 05/04/2025 10:00 AM EDT Office Visit [facility] [place] [address] [phone] Aki Ross MD [address] [place] [address] 05/11/2025 1:40 PM EDT Office Visit [facility] D[facility] [address] [phone] Nico Bailey MD [address] [place] [address] documented as of this encounter Visit Diagnoses Not on filedocumented in this encounter Additional Health Concerns Infection Onset Date Last Indicated Resolved Time R/O Gastrointestinal Infection 03/22/2025 03/22/2025 03/23/2025 10:28 PM EDT documented as of this encounter Care Teams Set Builder Relationship Specialty Start Date End Date Jace Blake MD [address] [place] [address] PCP - General Psychiatry, General 05/04/17 Rachid Robles MD 04/27/17 Andres Lakhani MD [address] [place] [address] House Mover Helper Cardiology 07/08/19 Aki Ross MD [address] [place] [address] Primary House Mover Helper Cardiovascular Disease 07/08/19 Ursula Boo MD [address] [place] [address] Gastroenterology 06/07/20 Rocio Youssef PA-C [address] [place] [address] Physician Lathe Tender Gastroenterology 06/07/20 Emeterio Valencia MD [address] [place] [address] Clinician Pulmonary Medicine 06/20/20 Diana Coppola MD [address] [address] Internal Medicine 03/22/25 documented as of this encounter
--- OUTSIDE RECORDS SUMMARY | 2025-03-31 12:58 | XMS_ITS | Encounter Summary ---
Author Organization [facility] Address [address] [place] [address] Care Team Providers Care Ski Patrol Director Name Role Phone Jace Blake MD Primary Care Provider Provider, Rachid GARCIA Unavailable Unavaila Andres Topete MD Unavailable [phone] Aki Ross MD Unavailable [phone] Ursula Boo MD Unavailable [phone] Rocio Youssef PA-C Unavailable Emeterio Valencia MD Unavailable Diana Coppola MD Unavailable Encounter Details Date Type Department Care Team (Late st Contact Info) Description 02/13/2021 Scanned Document [facility] [place] [address] [facility], [address] [place] [address] Aki Ross MD [address] [place] [address] Social History Tobacco Use Types Packs/Day Years [...] 05/04/2025 10:00 AM EDT Office Visit [facility] [place] [address] [phone] Aki Ross MD [address] [place] [address] 05/11/2025 1:40 PM EDT Office Visit [facility] Dermatology [place] [address] [place] [phone] Nico Baliey MD [address] [place] [address] documented as of this encounter Visit Diagnoses Not on filedocumented in this encounter Additional Health Concerns Infection Onset Date Last Indicated Resolved Time R/O Gastrointestinal Infection 03/22/2025 03/22/2025 03/23/2025 10:28 PM EDT documented as of this encounter Care Teams Ski Patrol Director Relationship Specialty Start Date End Date Jace Blake MD [address] [place] [address] PCP - General Psychiatry, General 05/04/17 Provider, MD Rachid 04/27/17 Andres Lakhani MD [address] [place] [address] Laundry Machine Tender Cardiology 07/08/19 Aki Ross MD [address] [place] [address] Primary Laundry Machine Tender Cardiovascular Disease 07/08/19 Ursula Boo MD [address] [address] Gastroenterology 06/07/20 Rocio Youssef PA-C [address] [place] [address] Physician Mobile Heavy Equipment Mechanic Gastroenterology 06/07/20 Emeterio Valencia MD [address] [place] [address] Clinician Pulmonary Medicine 06/20/20 Diana Coppola MD [address] [place] [address] Internal Medicine 03/22/25 documented as of this encounter
--- OUTSIDE RECORDS SUMMARY | 2025-03-31 12:58 | XMS_ITS | Encounter Summary ---
Author Organization [facility] Address [address] [place] [address] Care Team Providers Care Supervisor Lamp Shades Name Role Phone Jace Blake MD Primary Care Provider [phone] Provider, Rachid GARCIA Unavailable Unavaila Andres Topete MD Unavailable [phone] Aki Ross MD Unavailable [phone] Ursula Boo MD Unavailable Rocio Youssef PA-C Unavailable Emeterio Valencia MD Unavailable Diana Coppola MD Unavailable Encounter Details Date Type Department Care Team (Late st Contact Info) Description 04/23/2021 Scanned Document [facility] [address] [place] [address] Ursula Boo MD [address] [place] [phone] Social History Tobacco Use Types Packs/Day [...] Description 05/04/2025 10:00 AM EDT Office Visit [facility] [place] [address] [place] [address] Aki Ross MD [address] [place] [address] [address] [place], [place] [phone] 05/11/2025 1:40 PM EDT Office Visit [facility] Dermatology [place] 35 [place] [address] Nico Bailey MD [address] [place] [address] documented as of this encounter Visit Diagnoses Not on filedocumented in this encounter Additional Health Concerns Infection Onset Date Last Indicated Resolved Time R/O Gastrointestinal Infection 03/22/2025 03/22/2025 03/23/2025 10:28 PM EDT documented as of this encounter Care Teams Supervisor Lamp Shades Relationship Specialty Start Date End Date Jace Blake MD [facility]8 [place] [address] PCP - General Psychiatry, General 05/04/17 ProviderRachid MD 04/27/17 Andres Lakhani MD [address] [place] [address] Cosmetic Assembler Cardiology 07/08/19 Aki Ross MD [address] [address] Primary Cosmetic Assembler Cardiovascular Disease 07/08/19 Ursula Boo MD [address] [address] Gastroenterology 06/07/20 Rocio Youssef PA-C [address] [address] Physician Debt Management Counselor Gastroenterology 06/07/20 Emeterio Valencia MD [address] [address] Clinician Pulmonary Medicine 06/20/20 Diana Coppola MD [address] [address] Internal Medicine 03/22/25 documented as of this encounter
--- OUTSIDE RECORDS SUMMARY | 2025-03-31 12:58 | XMS_ITS | Encounter Summary ---
Author Organization [facility] Address [address] [place] [address] Care Team Providers Care Stiff Leg Operator Name Role Phone Jace Blake MD Primary Care Provider [phone] Provider, Rachid GARCIA Unavailable Unavaila Andres Topete MD Unavailable [phone] Aki Ross MD Unavailable [phone] Ursula Boo MD Unavailable Rocio Youssef PA-C Unavailable [phone] Emeterio Valencia MD Unavailable Diana Coppola MD Unavailable Encounter Details Date Type Department Care Team (Late st Contact Info) Description 03/27/2025 Orders Only [facility] [address] [address] Ursula Boo MD [address] [place] [phone] Social History Tobacco Use Types Packs/Day [...] Visit [facility] [place] [address] [address] Aki Ross MD [address] [place] [address] [address] [place] [address] 05/11/2025 1:40 PM EDT Office Visit [facility] D[facility] [place] 35 [place] [phone] Nico Bailey MD [address] [place] [address] documented as of this encounter Procedures Procedure Name Priority Date/Time Associated Diagnosis Comments LAB RESULT Routine 03/24/2025 8:26 AM EDT documented in this encounter Results * LAB RESULT (03/24/2025 8:26 AM EDT) us Ursula Boo MD HX AMB PROCEDURES Final Resu lt documented in this encounter Visit Diagnoses Not on filedocumented in this encounter Care Teams Stiff Leg Operator Relationship Specialty Start Date End Date Jace Blake MD [address] [place] [address] PCP - General Psychiatry, General 05/04/17 Rachid Robles MD 04/27/17 Andres Lakhani MD [address] [place] [address] Kiln Operator Helper Cardiology 07/08/19 Aki Ross MD [address] [place] [address] Primary Kiln Operator Helper Cardiovascular Disease 07/08/19 Ursula Boo MD [address] [place] [address] Gastroenterology 06/07/20 Rocio Youssef PA-C [address] [place] [address] Physician Entry Level Marketing Assistant Gastroenterology 06/07/20 Emeterio Valencia MD [address] [place] [address] Clinician Pulmonary Medicine 06/20/20 Diana Coppola MD [address] [address] Internal Medicine 03/22/25 documented as of this encounter
--- OUTSIDE RECORDS SUMMARY | 2025-03-31 12:58 | XMS_ITS | Clinical Summary ---
Author Organization [facility] Address [address] [place] [address] Care Team Providers Care Kettle Girl Name Role Phone Jace Blake MD Primary Care Provider [phone] Allergies No known active allergies Medications Medication [...] for now. See discussion under cardiomyopathy. [facility] Paroxysmal [facility] 04/14/2013 0 03/11/2024 Overview: Last Assessment & Plan: Patient with some possible occasional symptoms of arrhythmias. She continues with remote monitoring of her device through [facility]. Is maintained on beta-blockers and anticoagulation [...] Advance Directives For more information, please contact: [phone] Latest Code Status on File Code Status Date Activated Date Inactivated Comments Full Code 03/11/2024 5:12 PM 03/13/2024 1:01 AM This code status was ascertained in the following way: Discussed with patient. Care Teams Kettle Girl Relationship Specialty Start Date End Date Jace Blake MD [address] [place] [address] PCP - General Family Medicine 03/11/24
--- OUTSIDE RECORDS SUMMARY | 2025-03-31 12:59 | XMS_ITS | Encounter Summary ---
Author Organization [facility] Address [address] [place] [address] Care Team Providers Care Pet Care Assistant Name Role Phone Jace Blake MD Primary Care Provider Provider, Rachid GARCIA Unavailable Unavaila Andres Topete MD Unavailable [phone] Aki Ross MD Unavailable [phone] Ursula Boo MD Unavailable Rocio Youssef PA-C Unavailable [phone] Emeterio Valencia MD Unavailable Diana Coppola MD Unavailable Encounter Details Date Type Department Care Team (Late st Contact Info) Description 07/01/2023 Scanned Document [facility] [address] [place] [address] Ursula Boo MD [address] [place] [phone] Social History Tobacco Use Types Packs/Day [...] Description 05/04/2025 10:00 AM EDT Office Visit [facility] [place] [address] [phone] Aki Ross MD [address] [place] [address] 05/11/2025 1:40 PM EDT Office Visit [facility] Medical [facility] Dermatology [address] [phone] Nico Bailey MD [address] [place] [address] documented as of this encounter Visit Diagnoses Not on filedocumented in this encounter Additional Health Concerns Infection Onset Date Last Indicated Resolved Time R/O Gastrointestinal Infection 03/22/2025 03/22/2025 03/23/2025 10:28 PM EDT documented as of this encounter Care Teams Pet Care Assistant Relationship Specialty Start Date End Date Jace Blake MD [address] [place] [address] PCP - General Psychiatry, General 05/04/17 Rachid Robles MD 04/27/17 Andres Lakhani MD [address] [place] [address] Medical Scribe Cardiology 07/08/19 Aki Ross MD [address] [address] Primary Medical Scribe Cardiovascular Disease 07/08/19 Ursula Boo MD [address] [address] Gastroenterology 06/07/20 Rocio Youssef PA-C [address] [place] [address] Physician Human Service Coordinator Gastroenterology 06/07/20 Emeterio Valencia MD [address] [place] [address] Clinician Pulmonary Medicine 06/20/20 Diana Coppola MD [address] [place] [address] Internal Medicine 03/22/25 documented as of this encounter
--- OUTSIDE RECORDS SUMMARY | 2025-03-31 12:59 | XMS_ITS | Encounter Summary ---
Author Organization [facility] and [facility] Address [address] [place] [address] Care Team Providers Care Security Ambassador Name Role Phone HaydenJace Primary Care Provider [phone] Encounter Details Date Type Department Care Team (Latest Contact Info) Description 04/03/2021 Transcribed Orders [facility]RAW [facility] [place] [address] [place] [phone] Ambrosio Wallace MD PhD [address] [place] [phone] Idiopathic peripheral neuropathy (Primary Dx) Social [...] Care Team (Late st Contact Info) Description 06/07/2025 10:30 AM EDT Follow Up Neuromuscular Medicine at [address] [address] Silvestre Maldonado MD 800 [place] [phone] 07/19/2025 12:20 PM EDT Follow Up [facility] Congest[facility] Heart Failure Program at [address] [place] [address] [place] [address] Diana Coppola MD 800 [place] [phone] 10/05/2025 12:30 PM EST Appointment [facility] - [address] [place] [address] Aparna Chang MD [address] [place] [address], [place] [phone] Hallway, Pft Walk 10/05/2025 1:00 PM EST Appointment [facility] - [address] [place] [address] Aparna Chang MD [address] [place] [phone] 1, Pft Procedure Room 10/05/2025 2:00 PM EST Office Visit [facility] [address] [phone] Aparna Chang MD [address] [place] [phone] documented as of this encounter Procedures [...] (GH L LMW) (04/03/2021 10:18 AM EDT) [facility] Protein, Total 7.2 6.1 - 8.1 g/dL 04/07/2021 6:40 AM EDT [facility] Albumin 3.8 3.8 - 4.8 g/dL 04/07/2021 6:40 AM EDT [facility] Srbca-1-Rnadufvj 0.3 0.2 - 0.3 g/dL 04/07/2021 6:40 AM EDT [facility] Yslpq-6-Xuvrybic 0.8 0.5 - 0.9 g/dL 04/07/2021 6:40 AM EDT [facility] Rzbw-5-Fnydqwke 0.5 0.4 - 0.6 g/dL 04/07/2021 6:40 AM EDT [facility] Wxis-8-Nlpkgasd 0.5 0.2 - 0.5 g/dL 04/07/2021 6:40 AM EDT [facility] Gamma Globulin 1.3 0.8 - 1.7 g/dL 04/07/2021 6:40 AM EDT [facility] Abnormal Protein Band 1 SEE BELOW 04/07/2021 6:40 AM EDT [facility] Comment: No M Tian detected. ? Reference Range: None Detected Interpretation SEE BELOW 04/07/2021 6:40 AM EDT [facility] Comment: Normal Electrophoretic Pattern Test Performed at: [facility] [address] [place], [place] ??[phone] Teodoro Shore M.D., Ph.D.,Director of Laboratories Blood Venipuncture / Unknown 04/03/2021 10:18 AM EDT 04/03/2021 11:15 AM EDT us Ambrosio Wallace MD PhD LAB BLOOD ORDERABLES Final Result [facility] * Albumin (04/03/2021 10:18 AM EDT) Albumin 3.7 3.4 - 5.0 g/dL 04/03/2021 11:27 AM EDT [facility] Blood Venipuncture / Unknown 04/03/2021 10:18 AM EDT 04/03/2021 11:15 AM EDT us Ambrosio Wallace MD PhD LAB BLOOD ORDERABLES Final Result Performing Organization Address [facility] de Phone Number [address] [phone] * Protein, total (04/03/2021 10:18 AM EDT) Total Protein 7.7 6.4 - 8.2 g/dL 04/03/2021 11:28 AM EDT [facility] Blood Venipuncture / Unknown 04/03/2021 10:18 AM EDT 04/03/2021 11:15 AM EDT us Ambrosio Wallace MD PhD LAB BLOOD ORDERABLES Final Result Performing Organization Address City/[facility] Co de Phone Number [address] [phone] * Immunofixation, serum (04/03/2021 10:18 AM EDT) Immunofixation Interp., Serum SEE BELOW 04/07/2021 7:43 PM EDT [facility] Comment: No abnormal bands are present on immunofixation. Reference Range: No monoclonal proteins detected Test Performed at: [facility] [address] [place], [place] ??[phone] Teodoro Shore M.D., Ph.D.,Director of Laboratories Blood Venipuncture / Unknown 04/03/2021 10:18 AM EDT 04/03/2021 10:32 AM EDT Ambrosio Wallace MD PhD LAB BLOOD ORDERABLES Final Result Performing Organization Address City/[facility]/ZIP Co de Phone Number [employer] * Sjogren's Antibodies (SS-A,SS-B) (04/03/2021 10:18 AM EDT) Pathologist [facility] Sjogrens Ab, SS-A (Ro) 0.4 <7.0 Catarina U/mL 04/05/2021 1:48 PM EDT [facility] Comment: <7 ?? Catarina U/mL Negative 7-10 Catarina U/mL Equivocal >10 ??Catarina U/mL Positive Sjogrens Ab, SS-B (La) 0.3 <7.0 Catarina U/mL 04/05/2021 1:48 PM EDT [facility] Comment: <7 ?? Catarina U/mL Negative 7-10 Catarina U/mL Equivocal >10 ??Catarina U/mL Positive Blood Venipuncture / Unknown 04/03/2021 10:18 AM EDT 04/03/2021 10:33 AM EDT Ambrosio Wallace MD PhD LAB BLOOD ORDERABLES Final Result Performing Organization Address [facility]/State/ZIP Co de Phone Number [facility] [address] [place] [address] * (ABNORMAL) Sedimentation rate (ESR) (04/03/2021 10:18 AM EDT) Sedimentation Rate (ESR) 50(H) 0 - 20 mm/hr 04/03/2021 10:55 AM EDT [facility] Blood Venipuncture / Unknown 04/03/2021 10:18 AM EDT 04/03/2021 10:32 AM EDT Narrative [facility] - 04/03/2021 10:55 AM EDT As of November 06, 2020 this assay is being performed on new instrumentation. Please note that the reference range has changed. us Ambrosio Wallace MD PhD LAB BLOOD ORDERABLES Final Result [facility] [address] [phone] * Vitamin B12 (04/03/2021 10:18 AM EDT) Vitamin B12 596 211 - 911 pg/mL 04/03/2021 7:00 PM EDT [facility] Blood Venipuncture / Unknown 04/03/2021 10:18 AM EDT 04/03/2021 10:33 AM EDT us Ambrosio Wallace MD PhD LAB BLOOD ORDERABLES Final Result [facility] [address] [place] [address] documented in this encounter Visit Diagnoses Diagnosis Idiopathic peripheral neuropathy- Primary Unspecified hereditary and idiopathic peripheral neuropathy documented in this encounter Additional Health Concerns Assessment Noted Time PHQ-9 Depression Total Score: 0 10/03/20 20 12:10 PM EST documented as of this encounter Care Teams Security Ambassador Relationship Specialty Start Date End Date Jace Blake DO [address] [place] [address] PCP - General Family Medicine 08/01/14 documented as of this encounter
--- OUTSIDE RECORDS SUMMARY | 2025-03-31 12:59 | XMS_ITS | Clinical Summary ---
Author Organization [facility] ity Address [address] [place] [address] Care Team Providers Care Headrig Sawyer Name Role Phone Blake, Gary Primary Care Provider [phone] Social History Tobacco Use Types Packs/Day Years Used Date Smoking Tobacco: Never Assessed Comments Unknown Sex and Gender Information Value Date Recorded Sex Assigned at Not on file Legal Sex Female 4:42 PM EDT Gender Identity Not on file [...] Health Maintenance Due Date Last Done Comments DTaP,Tdap,and Td Vaccines (1 - Tdap) 1969 Pneumococcal Vaccine: 50+ Years (1 of 2 - PCV) 1967 Zoster Vaccines (1 of 2) 1998 RSV Immunization Adult Patients (1 - 1-dose 75+ series) 2023 Depression Screening 06/22/2024 Falls Risk Assessment 06/22/2024 Hepatitis C Screening 06/22/2024 Osteoporosis Screening (Bone Density Screening) 06/22/2024 Social Influencers of Health Screening 06/22/2024 COVID-19 Vaccine ( - season) 2024 Hypertension/CHF/CAD Annual BMP Blood Test 03/12/2025 03/12/2024, 03/12/2024, 03/11/2024, Additional history exists Influenza Vaccine (Season Ended) 2025 HIB Vaccines Aged Out No longer eligi [...] patient's age to complete this topic Meningococcal B Vaccine Aged Out No l onger eligible based on patient's age to complete this topic RSV Immunization Patients Under 20 months Aged Out No longer eligible based on patient's age to complete this topic Varicella Vaccines Aged Out No longer eligible based on patient's age to complete this topic Care Teams Headrig Sawyer Relationship Specialty Start Date End Date Jace Blake DO [address] [place], [place] PCP - General 03/11/24
--- OUTSIDE RECORDS SUMMARY | 2025-03-31 12:59 | XMS_ITS | Encounter Summary ---
Author Organization [facility] and [facility] Address [address] [place] [address] Care Team Providers Care Control And Recovery Combat Rescue Name Role Phone HaydenJace Primary Care Provider [phone] Encounter Details Date Type Department Care Team (Late st Contact Info) Description 04/27/2023 [facility], 4th Floor [address] [phone] Gerardo Vigil MD [address] [place] [phone] Social History Tobacco Use Types Packs/Day Years [...] EDT Follow Up Neuromuscular Medicine at [address] [address] Silvestre Maldonado MD [address] [place] [phone] 07/19/2025 12:20 PM EDT Follow Up Congestive Heart Failure Program at 800 [facility] [address] [address] Diana Coppola MD 800 [place] [address] 10/05/2025 12:30 PM EST Appointment [facility] - [address] [address] Aparna Chang MD [address] [place] [phone] Hallway, Pft Walk 10/05/2025 1:00 PM EST Appointment [facility] - [address] [address] Aparna Chang MD [address] [place] [phone] 1, Pft Procedure Room 10/05/2025 2:00 PM EST Office Visit [facility] [address] [phone] Aparna Chang MD [address] [place] [phone] documented as of this encounter Visit Diagnoses Not on filedocumented in this encounter Additional Health Concerns Assessment Noted Time PHQ-9 Depression Total Score: 0 07/10/20 21 10:52 AM EDT documented as of this encounter Care Teams Control And Recovery Combat Rescue Relationship Specialty Start Date End Date Jace Blake DO [address] [place] [address] PCP - General Family Medicine 08/01/14 documented as of this encounter
--- OUTSIDE RECORDS SUMMARY | 2025-03-31 12:59 | XMS_ITS | Encounter Summary ---
Author Organization [facility] Address [address] [place] [address] Care Team Providers Care Aircraft Armorer Name Role Phone Jace Blake MD Primary Care Provider Provider, Rachid GARCIA Unavailable Unavaila Andres Topete MD Unavailable [phone] Aki Ross MD Unavailable [phone] Ursula Boo MD Unavailable [phone] Rocio Youssef PA-C Unavailable [phone] Emeterio Valencia MD Unavailable Diana Coppola MD Unavailable Encounter Details Date Type Department Care Team (Late st Contact Info) Description 04/15/2023 Scanned Document [facility] [place] [address] [place] [phone] Provider, Tom, [address] [place] [address] Social History Tobacco Use Types Packs/Day Years [...] Visit [facility] [place] [address] [phone] Aki Ross MD [address] [place] [address] 05/11/2025 1:40 PM EDT Office Visit [facility] Dermatology [place] [address] [place] [phone] Nico Bailey MD [address] [place] [address] documented as of this encounter Visit Diagnoses Not on filedocumented in this encounter Additional Health Concerns Infection Onset Date Last Indicated Resolved Time R/O Gastrointestinal Infection 03/22/2025 03/22/2025 03/23/2025 10:28 PM EDT documented as of this encounter Care Teams Aircraft Armorer Relationship Specialty Start Date End Date Jace Blake MD [address] [place] [address] PCP - General Psychiatry, General 05/04/17 Provider, MD Rachid 04/27/17 Andres Lakhani MD [address] [place] [address] Marketing Operations Intern Cardiology 07/08/19 Aki Ross MD [address] [place] [address] Primary Marketing Operations Intern Cardiovascular Disease 07/08/19 Ursula Boo MD [address] [address] Gastroenterology 06/07/20 Rocio Youssef PA-C [address] [place] [address] Physician Windows Systems Admin Gastroenterology 06/07/20 Emeterio Valencia MD [address] [place] [address] Clinician Pulmonary Medicine 06/20/20 Diana Coppola MD [address] [place] [address] Internal Medicine 03/22/25 documented as of this encounter
--- OUTSIDE RECORDS SUMMARY | 2025-03-31 12:59 | XMS_ITS | Encounter Summary ---
Author Organization [facility] Address [address] [place] [address] Care Team Providers Care Inside Sales Advisor Name Role Phone Jace Blake MD Primary Care Provider Provider, Rachid GARCIA Unavailable Unavaila Andres Topete MD Unavailable [phone] Aki Ross MD Unavailable [phone] Ursula Boo MD Unavailable Rocio Youssef PA-C Unavailable Emeterio Valencia MD Unavailable Diana Coppola MD Unavailable Encounter Details Date Type Department Care Team (Late st Contact Info) Description 02/27/2023 Scanned Document [facility] [address] [place] [address] Ursula Boo MD [address] [place] [phone] Social History Tobacco Use Types Packs/Day [...] 10:00 AM EDT Office Visit [facility] Heart [facility] V[facility] [place] [address] [phone] Aki Ross MD [address] [place] [address] 05/11/2025 1:40 PM EDT Office Visit [facility] Medical [facility] Dermatology [address] [phone] Nico Bailey MD [address] [place] [address] documented as of this encounter Visit Diagnoses Not on filedocumented in this encounter Additional Health Concerns Infection Onset Date Last Indicated Resolved Time R/O Gastrointestinal Infection 03/22/2025 03/22/2025 03/23/2025 10:28 PM EDT documented as of this encounter Care Teams Inside Sales Advisor Relationship Specialty Start Date End Date Jace Blake MD [address] [place] [address] PCP - General Psychiatry, General 05/04/17 Rachid Robles MD 04/27/17 Andres Lakhani MD [address] [place] [address] Musculoskeletal Physician Cardiology 07/08/19 Aki Ross MD [address] [address] Primary Musculoskeletal Physician Cardiovascular Disease 07/08/19 Ursula Boo MD [address] [address] Gastroenterology 06/07/20 Rocio Youssef PA-C [address] [place] [address] Physician African History Professor Gastroenterology 06/07/20 Emeterio Valencia MD [address] [place] [address] Clinician Pulmonary Medicine 06/20/20 Diana Coppola MD [address] [place] [address] Internal Medicine 03/22/25 documented as of this encounter
--- OUTSIDE RECORDS SUMMARY | 2025-03-31 12:59 | XMS_ITS | Encounter Summary ---
Author Organization [facility] Address [address] [place] [phone] Care Team Providers Care Chro Name Role Phone HaydenJace Primary Care Provider [phone] Encounter Details Date Type Department Care Team (Late st Contact Info) Description 04/24/2021 Scanned Document INTERFACE DEFAULT [address] [place] [address] System, Provider Not In Social History Tobacco [...] Description 06/07/2025 10:30 AM EDT Follow Up [facility] Neu[facility] Medicine at [address] [address] Silvestre Maldonado MD [address] [place] [phone] 07/19/2025 12:20 PM EDT Follow Up Congestive Heart Failure Program at 800 [facility] [address] [place] [address] Diana Coppola MD [address] [place] [phone] 10/05/2025 12:30 PM EST Appointment PUL[facility]CTION LABORATORY - [address] [address] Aparna Chang MD [address] [place] [phone] Hallway, Pft Walk 10/05/2025 1:00 PM EST Appointment [facility] - [address] [address] Aparna Chang MD [address] [place] [phone] 1, Pft Procedure Room 10/05/2025 2:00 PM EST Office Visit [facility] [address] [phone] Aparna Chang MD [address] [place] [phone] documented as of this encounter Visit Diagnoses Not on filedocumented in this encounter Additional Health Concerns Assessment Noted Time PHQ-9 Depression Total Score: 0 04/17/20 21 11:27 AM EDT documented as of this encounter Care Teams Chro Relationship Specialty Start Date End Date Jace Blake DO [address] [place] [address] PCP - General Family Medicine 08/01/14 documented as of this encounter
--- OUTSIDE RECORDS SUMMARY | 2025-03-31 12:59 | XMS_ITS | Encounter Summary ---
Author Organization [facility] Address [address] [place] [phone] Care Team Providers Care Fee Clerk Name Role Phone Blake, Gary Primary Care Provider [phone] Encounter Details Date Type Department Care Team (Late st Contact Info) Description 06/23/2014 Scanned Document Gastrointestinal Surgery at [address] [place] [address] [place] [address] Chino Cordova MD PhD [address] [place] [phone] Social History Tobacco Use Types Packs/Day Years [...] AM EDT Follow Up Neuromuscular Medicine at [address] [place] [address] [place] [address] Silvestre Maldonado MD [address] [place] [phone] 07/19/2025 12:20 PM EDT Follow Up Congestive Heart Failure Program at 800 [facility] [address] [place] [address] Diana Coppola MD [address] [place] [phone] 10/05/2025 12:30 PM EST Appointment PULMON[facility] FUNCTION LABORATORY - [address] [address] Aparna Chang MD [address] [place] [phone] Hallway, Pft Walk 10/05/2025 1:00 PM EST Appointment P[facility] LAB[facility] - [address] [address] Aparna Chang MD [address] [place] [phone] 1, Pft Procedure Room 10/05/2025 2:00 PM EST Office Visit [facility] [address] [phone] Aparna Chang MD [address] [place] [phone] documented as of this encounter Visit Diagnoses Not on filedocumented in this encounter Care Teams Fee Clerk Relationship Specialty Start Date End Date Jace Blake DO [address] [place] [address] PCP - General Family Medicine 08/01/14 documented as of this encounter
--- OUTSIDE RECORDS SUMMARY | 2025-03-31 12:59 | XMS_ITS | Encounter Summary ---
Author Organization [facility] and [facility] Address [address] [place] [phone] Care Team Providers Care Water/Wastewater Engineer Name Role Phone BlakeJace Primary Care Provider [phone] Encounter Details Date Type Department Care Team (Late st Contact Info) Description 03/28/2021 Scanned Document INTERFACE DEFAULT [address] [place] [address] System, Provider Not In Social History Tobacco [...] Follow Up [facility] Neuromuscular Medicine at [address] [address] Silvestre Maldonado MD [address] [place] [phone] 07/19/2025 12:20 PM EDT Follow Up Congestive Heart Failure Program at 800 [facility] [address] [place] [address] Diana Coppola MD [address] [place] [phone] 10/05/2025 12:30 PM EST Appointment PULMONARY FUNCTION LABORATORY - [address] [address] Aparna Chang MD [address] [place] [phone] [facility], Pft Walk 10/05/2025 1:00 PM EST Appointment PULMONARY FUNCTION LABORATORY - [address] [address] Aparna Chang MD [address] [place] [phone] 1, Pft Procedure Room 10/05/2025 2:00 PM EST Office Visit [facility] [address] [phone] Aparna Chang MD [address] [place] [phone] documented as of this encounter Visit Diagnoses Not on filedocumented in this encounter Additional Health Concerns Assessment Noted Time PHQ-9 Depression Total Score: 0 10/03/20 20 12:10 PM EST documented as of this encounter Care Teams Water/Wastewater Engineer Relationship Specialty Start Date End Date Jace Blake DO [address] [place] [address] PCP - General Family Medicine 08/01/14 documented as of this encounter
--- OUTSIDE RECORDS SUMMARY | 2025-03-31 12:59 | XMS_ITS | Encounter Summary ---
Author Organization [facility] Address [address] [place] [address] Care Team Providers Care Duplication Specialist Name Role Phone Hayden Jace HATFIELD Primary Care Provider [phone] Encounter Details Date Type Department Care Team (Latest Contact Info) Description 04/30/2022 Transcribed Orders [facility] [address] [place] [address] Tl Mancera APRN [address] [phone] Iron deficiency anemia secondary to inadequate dietary [...] EDT Follow Up Neuromuscular Medicine at 800 [facility] 800 [place] [address] Silvestre Maldonado MD 800 [place] [phone] 07/19/2025 12:20 PM EDT Follow Up [facility] Congest[facility] Failure Program at [address] [place] [address] 800 [facility] [place] 2nd [place] [address] Diana Coppola MD 800 [place] [phone] 10/05/2025 12:30 PM EST Appointment PUL[facility]CTION LABORATORY - [address] [address] Aparna Chang MD [address] [place] [phone] Hallway, Pft Walk 10/05/2025 1:00 PM EST Appointment PUL[facility] LABORATORY - [address] [address] Aparna Chang MD [address] [place] [phone] 1, Pft Procedure Room 10/05/2025 2:00 PM EST Office Visit [facility] [address] [phone] Aparna Chang MD [address] [place] [phone] documented as of this encounter Visit Diagnoses Diagnosis Iron deficiency anemia secondary to inadequate dietary iron intake- Primary documented in this encounter Additional Health Concerns Assessment Noted Time PHQ-9 Depression Total Score: 0 07/10/20 21 10:52 AM EDT documented as of this encounter Care Teams Duplication Specialist Relationship Specialty Start Date End Date Jace Blake DO [address] [place] [address] PCP - General Family Medicine 08/01/14 documented as of this encounter
--- OUTSIDE RECORDS SUMMARY | 2025-03-31 12:59 | XMS_ITS | Encounter Summary ---
Author Organization [facility] and [facility] Address [address] [place] [address] Care Team Providers Care Operator Catalyst Concentration Name Role Phone HaydenJace Primary Care Provider [phone] Encounter Details Date Type Department Care Team (Late st Contact Info) Description 06/05/2023 Transcribed Orders [facility] [address] [address] Meghana Hunter MD [address] [place] [phone] Social History Tobacco Use Types Packs/Day [...] EDT Follow Up Neuromuscular Medicine at [address] [phone] Silvestre Maldonado MD 800 [place] [address] 07/19/2025 12:20 PM EDT Follow Up Congestive Heart Failure Program at 800 Formerly [facility]amed [facility] [address] [address] Diana Coppola MD [address] [place] [address] 10/05/2025 12:30 PM EST Appointment [facility] - [address] [phone] Aparna Chang MD [address] [place] [phone] [facility], Pft Walk 10/05/2025 1:00 PM EST Appointment [facility] - [address] [address] Aparna Chang MD [address] [place] [phone] 1, Pft Procedure Room 10/05/2025 2:00 PM EST Office Visit [facility] [address] [address] Aparna Chang MD [address] [place] [phone] documented as of this encounter Visit Diagnoses Not on filedocumented in this encounter Additional Health Concerns Assessment Noted Time PHQ-9 Depression Total Score: 0 07/10/20 21 10:52 AM EDT documented as of this encounter Care Teams Operator Catalyst Concentration Relationship Specialty Start Date End Date Jace Blake DO [address] [place] [phone] PCP - General Family Medicine 08/01/14 documented as of this encounter
--- OUTSIDE RECORDS SUMMARY | 2025-03-31 12:59 | XMS_ITS | Encounter Summary ---
Author Organization [facility] Address [address] [place] [address] Care Team Providers Care Business And Marketing Teacher Name Role Phone Jace Blake MD Primary Care Provider Provider, Rachid GARCIA Unavailable Unavaila Andres Topete MD Unavailable [phone] Aki Ross MD Unavailable [phone] Ursula Boo MD Unavailable Rocio Youssef PA-C Unavailable Emeterio Valencia MD Unavailable Diana Coppola MD Unavailable Encounter Details Date Type Department Care Team (Late st Contact Info) Description 07/01/2023 Scanned Document [facility] [address] [place] [phone] Provider, Tom, [address] [place] [address] Social History Tobacco Use Types Packs/Day Years [...] [facility] [address] [phone] Aki Ross MD [address] [place] [address] 05/11/2025 1:40 PM EDT Office Visit [facility] Dermatology [place] [address] [place] [phone] Nico Bailey MD [address] [place] [address] documented as of this encounter Visit Diagnoses Not on filedocumented in this encounter Additional Health Concerns Infection Onset Date Last Indicated Resolved Time R/O Gastrointestinal Infection 03/22/2025 03/22/2025 03/23/2025 10:28 PM EDT documented as of this encounter Care Teams Business And Marketing Teacher Relationship Specialty Start Date End Date Jace Blake MD [address] [place] [address] PCP - General Psychiatry, General 05/04/17 Provider, MD Rachid 04/27/17 Andres Lakhani MD [address] [place] [address] Milling Supervisor Cardiology 07/08/19 Aki Ross MD [address] [place] [address] Primary Milling Supervisor Cardiovascular Disease 07/08/19 Ursula Boo MD [address] [address] Gastroenterology 06/07/20 Rocio Youssef PA-C [address] [place] [address] Physician Shank Maker Gastroenterology 06/07/20 Emeterio Valencia MD [address] [place] [address] Clinician Pulmonary Medicine 06/20/20 Diana Coppola MD [address] [place] [address] Internal Medicine 03/22/25 documented as of this encounter
--- OUTSIDE RECORDS SUMMARY | 2025-03-31 12:59 | XMS_ITS | Encounter Summary ---
Author Organization [facility] Address [address] [place] [address] Care Team Providers Care Certified Composites Technician Name Role Phone Jace Blake MD Primary Care Provider Provider, Rachid GARCIA Unavailable Unavaila Andres Topete MD Unavailable [phone] Aki Ross MD Unavailable [phone] Ursula Boo MD Unavailable Rocio Youssef PA-C Unavailable [phone] Emeterio Valencia MD Unavailable Diana Coppola MD Unavailable Encounter Details Date Type Department Care Team (Late st Contact Info) Description 06/05/[address] [facility] [place] [address] [address] Aki Ross MD [address] [place] [address] Social History Tobacco Use Types Packs/Day [...] Description 05/04/2025 10:00 AM EDT Office Visit [facility] [place] [address] [phone] Aki Ross MD [address] [place] [address] 05/11/2025 1:40 PM EDT Office Visit [facility] Medical [facility] Dermatology [address] [phone] Nico Bailey MD [address] [place] [address] documented as of this encounter Visit Diagnoses Not on filedocumented in this encounter Additional Health Concerns Infection Onset Date Last Indicated Resolved Time R/O Gastrointestinal Infection 03/22/2025 03/22/2025 03/23/2025 10:28 PM EDT documented as of this encounter Care Teams Certified Composites Technician Relationship Specialty Start Date End Date Jace Blake MD [address] [place] [address] PCP - General Psychiatry, General 05/04/17 Rachid Robles MD 04/27/17 Andres Lakhani MD [address] [place] [address] Fiberglass Quality Technician Cardiology 07/08/19 Aki Ross MD [address] [place] [address] Primary Fiberglass Quality Technician Cardiovascular Disease 07/08/19 Ursula Boo MD [address] [place] [address] Gastroenterology 06/07/20 Rocio Youssef PA-C [address] [place] [address] Physician Stock Wetter Gastroenterology 06/07/20 Emeterio Valencia MD [address] [place] [address] Clinician Pulmonary Medicine 06/20/20 Diana Coppola MD [address] [place] [address] Internal Medicine 03/22/25 documented as of this encounter
--- OUTSIDE RECORDS SUMMARY | 2025-03-31 12:59 | XMS_ITS | Encounter Summary ---
Author Organization [facility] and [facility] Address [address] [place] [phone] Care Team Providers Care Accounts Administrator Name Role Phone Hayden Jace Primary Care Provider [phone] Encounter Details Date Type Department Care Team (Late st Contact Info) Description 12/24/2020 Scanned Document [facility] at [address] [place] [id number] Chela Ramírez MD [address] [phone] Social History Tobacco Use Types [...] EDT Follow Up Neuromuscular Medicine at [address] [address] Silvestre Maldonado MD [address] [place] [phone] 07/19/2025 12:20 PM EDT Follow Up Congestive Heart Failure Program at 800 [facility] [address] [address] Diana Coppola MD 800 [place] [phone] 10/05/2025 12:30 PM EST Appointment PUL[facility] LAB[facility]AT[facility] - [address] [address] Aaprna Chang MD [address] [place] [phone] [facility] [place], Pft Walk 10/05/2025 1:00 PM EST Appointment P[facility] - [address] [address] Aparna Chang MD [address] [place] [phone] 1, Pft Procedure Room 10/05/2025 2:00 PM EST Office Visit [facility] [address] [phone] Aparna Chang MD [address] [place] [phone] documented as of this encounter Visit Diagnoses Not on filedocumented in this encounter Additional Health Concerns Assessment Noted Time PHQ-9 Depression Total Score: 0 10/03/20 20 12:10 PM EST documented as of this encounter Care Teams Accounts Administrator Relationship Specialty Start Date End Date Jace Blake DO [address] [place] [address] PCP - General Family Medicine 08/01/14 documented as of this encounter
--- OUTSIDE RECORDS SUMMARY | 2025-03-31 12:59 | XMS_ITS | Encounter Summary ---
Author Organization [facility] Address [address] [place] [address] Care Team Providers Care Gravel Screener Name Role Phone Jace Blake MD Primary Care Provider Provider, Rachid GARCIA Unavailable Unavaila Andres Topete MD Unavailable Aki Ross MD Unavailable [phone] Ursula Boo MD Unavailable [phone] Rocio Youssef PA-C Unavailable Emeterio Valencia MD Unavailable Diana Coppola MD Unavailable Reason for Visit * Reason Comments Medication Refill Encounter Details Date Type Department Care Team (Late st Contact Info) Description 05/28/2023 Refill [facility] [place] [address] [address] Maren Verdugo APRN [address] [place] [address] Medication Refill Social History Tobacco Use Types Packs/Day Years Used Date Smoking Tobacco: Former Cigarettes Q uit: 2001 Smokeless Tobacco: Never Alcohol Use Standard Drinks/Week [...] Upcoming Encounters Date Type Department Care Team ([facility] st Contact Info) Description 05/04/2025 10:00 AM EDT Office Visit [facility] [place] [address] [address] Aki Ross MD [address] [place] [address] 05/11/2025 1:40 PM EDT Office Visit [facility] Dermatology [address] [phone] Nico Bailey MD [address] [place] [address] documented as of this encounter Visit Diagnoses Diagnosis Chronic diastolic heart failure (HCC) Chronic diastolic heart failure documented in this encounter Additional Health Concerns Infection Onset Date Last Indicated Resolved Time R/O Gastrointestinal Infection 03/22/2025 03/22/2025 03/23/2025 10:28 PM EDT documented as of this encounter Care Teams Gravel Screener Relationship Specialty Start Date End Date Jace Blake MD [address] [place] [address] PCP - General Psychiatry, General 05/04/17 Rachid Robles MD 04/27/17 Andres Lakhani MD [address] [place] [address] Assembler Sandal Parts Cardiology 07/08/19 Aki Ross MD [address] [address] Primary Assembler Sandal [employer] Cardiovascular Disease 07/08/19 Ursula Boo MD [address] [address] Gastroenterology 06/07/20 Rocio Youssef PA-C [address] [place] [address] Physician Java Tech Lead Gastroenterology 06/07/20 Emeterio Valencia MD [address] [place] [address] Clinician Pulmonary Medicine 06/20/20 Diana Coppola MD [address] [address] Internal Medicine 03/22/25 documented as of this encounter
--- OUTSIDE RECORDS SUMMARY | 2025-03-31 12:59 | XMS_ITS | Encounter Summary ---
Author Organization [facility] and [facility] Address [address] [place] [phone] Care Team Providers Care Salvage Winder And Inspector Name Role Phone Blake, Gary Primary Care Provider [phone] Encounter Details Date Type Department Care Team (Latest Contact Info) Description 04/30/2023 Transcribed Orders [facility] 45 [place] [address] Aki Ross MD [address] [address] Chronic diastolic heart failure (HC [...] EDT Follow Up Neuromuscular Medicine at 800 [place] [phone] Silvestre Maldonado MD 800 [facility] [place] [address] 07/19/2025 12:20 PM EDT Follow Up Congestive Heart Failure Program at 800 [facility] [address] [place] [address] Diana Coppola MD 800 [facility] [place] [address] 10/05/2025 12:30 PM EST Appointment PULMON[facility] FUNCTION LABORATORY - [address] [address] Aparna hCang MD [address] [place] [phone] [facility], Pft Walk 10/05/2025 1:00 PM EST Appointment PULMON[facility]CTION LABORATORY - [address] [address] Aparna Chang MD [address] [place] [phone] 1, Pft Procedure Room 10/05/2025 2:00 PM EST Office Visit [facility] [address] [phone] Aparna Chang MD [address] [place] [phone] documented as of this encounter Results * (ABNORMAL) NT-proBrain natriuretic peptide (04/30/2023 11:46 AM EDT) NT-proBNP 280.0(H) <125.0 pg/mL 04/30/2023 1:14 PM EDT [facility] Blood Venipuncture / Unknown 04/30/2023 11:46 AM EDT 04/30/2023 11:46 AM EDT us Aki Ross MD LAB BLOOD [place]AB[place] [address], [facility] [phone] documented in this encounter Visit Diagnoses Diagnosis Chronic diastolic heart failure (HC Code)- Primary Chronic diastolic heart failure documented in this encounter Additional Health Concerns Assessment Noted Time PHQ-9 Depression Total Score: 0 07/10/20 21 10:52 AM EDT documented as of this encounter Care Teams Salvage Winder And Inspector Relationship Specialty Start Date End Date Jace Blake DO [address] [place] [address] PCP - General Family Medicine 08/01/14 documented as of this encounter
--- OUTSIDE RECORDS SUMMARY | 2025-03-31 12:59 | XMS_ITS | Encounter Summary ---
Author Organization [facility] Address [address] [place] [phone] Care Team Providers Care Pulper Operator Name Role Phone Blake, Gary Primary Care Provider [phone] Encounter Details Date Type Department Care Team (Late st Contact Info) Description 04/13/2023 Abstract [facility] [address] [phone] Aparna Chang MD [address] [place] [phone] Social History Tobacco Use Types Packs/Day [...] EDT Follow Up Neuromuscular Medicine at [address] [address] Silvestre Maldonado MD [address] [place] [phone] 07/19/2025 12:20 PM EDT Follow Up [facility] Congestive Heart Failure Program at [address] [facility] [address] [address] Diana Coppola MD [address] [place] [address] 10/05/2025 12:30 PM EST Appointment PUL[facility] LAB[facility]AT[facility] - [address] [phone] Aparna Chang MD [address] [place] [phone] [facility], Pft Walk 10/05/2025 1:00 PM EST Appointment PULMON[facility]CTION LABORAT[facility] - [address] [address] Aparna Chang MD [address] [place] [phone] 1, Pft Procedure Room 10/05/2025 2:00 PM EST Office Visit [facility] [address] [address] Aparna Chang MD [address] [place] [phone] documented as of this encounter Visit Diagnoses Not on filedocumented in this encounter Additional Health Concerns Assessment Noted Time PHQ-9 Depression Total Score: 0 07/10/20 21 10:52 AM EDT documented as of this encounter Care Teams Pulper Operator Relationship Specialty Start Date End Date Jace Blake DO [address] [place] [phone] PCP - General Family Medicine 08/01/14 documented as of this encounter
--- OUTSIDE RECORDS SUMMARY | 2025-03-31 12:59 | XMS_ITS | Encounter Summary ---
Author Organization [facility] Address [address] [place] [address] Care Team Providers Care Rubber Press Tender Name Role Phone Jace Blake MD Primary Care Provider [phone] Provider, Rachid GARCIA Unavailable Unavaila Andres Topete MD Unavailable Aki Ross MD Unavailable [phone] Ursula Boo MD Unavailable Rocio Youssef PA-C Unavailable Emeterio Valencia MD Unavailable Diana Coppola MD Unavailable Encounter Details Date Type Department Care Team (Late st Contact Info) Description 06/02/2023 Scanned Document [facility] [place] [address] [address] Aki Ross MD [address] [place] [address] Social History Tobacco Use Types Packs/Day [...] 05/04/2025 10:00 AM EDT Office Visit [facility] [place] [address] [phone] Aki Ross MD [address] [place] [address] 05/11/2025 1:40 PM EDT Office Visit [facility] Dermatology [address] [address] Nico Bailey MD [address] [place] [address] documented as of this encounter Visit Diagnoses Not on filedocumented in this encounter Additional Health Concerns Infection Onset Date Last Indicated Resolved Time R/O Gastrointestinal Infection 03/22/2025 03/22/2025 03/23/2025 10:28 PM EDT documented as of this encounter Care Teams Rubber Press Tender Relationship Specialty Start Date End Date Jace Blake MD [address] [place] [address] PCP - General Psychiatry, General 05/04/17 Rachid Robles MD 04/27/17 Andres Lakhani MD [address] [place] [address] Preservative Filler Machine Operator Cardiology 07/08/19 Aki Ross MD [address] [place] [address] Primary Preservative Filler Machine Operator Cardiovascular Disease 07/08/19 Ursula Boo MD [address] [place] [address] Gastroenterology 06/07/20 Rocio Youssef PA-C [address] [place] [address] Physician Firer Low Pressure Gastroenterology 06/07/20 Emeterio Valencia MD [address] [place] [address] Clinician Pulmonary Medicine 06/20/20 Diana Coppola MD [address] [place] [address] Internal Medicine 03/22/25 documented as of this encounter
--- OUTSIDE RECORDS SUMMARY | 2025-03-31 12:59 | XMS_ITS | Encounter Summary ---
Author Organization [facility] and [facility] Address [address] [place] [address] Care Team Providers Care Oil And Gas Lease Pumper Name Role Phone Blake, Gary Primary Care Provider [phone] Encounter Details Date Type Department Care Team (Latest Contact Info) Description 07/19/2021 Transcribed Orders [facility] [address] [place] [address] Kiya Macias, WALDEMAR 5 [facility] [address] [place] [address] Fatty metamorphosis of liver (Primary Dx); Acid [...] at [address] [facility] [address] [facility] [place] [address] Silvestre Maldonado MD 800 [facility] [address] 07/19/2025 12:20 PM EDT Follow Up Congestive Heart Failure Program at [address] [facility] [address] [facility] 2nd [facility] [place] [address] Diana Coppola MD 800 [facility] [address] 10/05/2025 12:30 PM EST Appointment PUL[facility] FUNCTION LABORATORY - [address] [address] Aparna Chang MD [address] [place] [phone] Hallway, Pft Walk 10/05/2025 1:00 PM EST Appointment PULMONARY FUNCTION LABORATORY - [address] [address] Aaprna Chang MD [address] [place] [phone] 1, Pft Procedure Room 10/05/2025 2:00 PM EST Office Visit [facility] [address] [phone] Aparna Chang MD [address] [place] [phone] documented as of this encounter Results * Extlr-7-dodxgppkbtx phenotype (07/19/2021 4:05 PM EDT) Jerxf-3-Pzqxnwgsh in Phenotype SEE BELOW 08/01/2021 5:14 PM EDT [facility] Comment: THIS PATIENT'S OYUXK-7-RDTDRUQOGLE 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 90% of normal individuals have the MM phenotype, with normal quantitative AAT levels. Many phenotypic patterns have been described, including deficiency states with F, S, Z, or other alleles. As a general estimation, compared to M allele of 100% of normal U-6-Hkdkndjruld protein, the S allele produces approximately 60% and the Z allele 20%. For example, an MS phenotype would have about 80% of normal Z-7-Fetqcoahedi protein level, a 50% contribution from the M allele and 30% from the S allele. A ZZ phenotype would have about 20% of normal levels, a 10% contribution from each Z gene. The F allele has normal N-4-Fpbqqqiwhtm levels, but the kinetics of elastase inhibition [...] the deficient MZ phenotype. Test performed by [employer] ?[address] [facility], ?[place] [address] ? Veneer Lathe Operator: Milana Baptiste MD,PHD,DECLAN Test Reported by [facility], [employer] [facility], [address] [place], [place] Teodoro Shore M.D., Ph.D., Director of Laboratories , [place] [id number] Blood Venipuncture / Unknown 07/19/2021 4:05 PM EDT 07/19/2021 4:05 PM EDT us Kiya Macias CORRECTIONS CORPORAL LAB BLOOD ORDER LUCA Final Result [facility] * Tissue transglutaminase, IgA (07/19/2021 4:05 PM EDT) Pathologist [facility] tTG, IgA 1.1 <7.0 Catarina U/mL 07/22/2021 1:14 PM EDT [facility] Comment: <7 ?? Catarina U/mL Negative 7-10 Catarina U/mL Equivocal >10 ??Catarina U/mL Positive Blood Venipuncture / Unknown 07/19/2021 4:05 PM EDT 07/19/2021 4:05 PM EDT us Kiya Macias CORRECTIONS CORPORAL LAB BLOOD ORDER LUCA Final Result Performing Organization Address City/[facility] Co de Phone Number [facility] [address] [place] [address] * Immunoglobulin M (07/19/2021 4:05 PM EDT) [facility] Immunoglobulin M 184 40 - 230 mg/dL 07/19/2021 5:33 PM EDT [facility] Blood Venipuncture / Unknown 07/19/2021 4:05 PM EDT 07/19/2021 4:05 PM EDT us Kiya Macias CORRECTIONS CORPORAL LAB BLOOD [place] [address], [facility] [phone] * Immunoglobulin G (07/19/2021 4:05 PM EDT) Pathologist [facility] Immunoglobulin G 1,240 700 - 1,600 mg/dL 07/19/2021 5:33 PM EDT [facility] Blood Venipuncture / Unknown 07/19/2021 4:05 PM EDT 07/19/2021 4:05 PM EDT Kiya FerrarirobertoMiguel ÁngelBlunt CORRECTIONS CORPORAL LAB BLOOD ORDER LUCA Final Result Performing Organization Address [facility] Co de Phone Number [address] [phone] * Immunoglobulin A (07/19/2021 4:05 PM EDT) Immunoglobulin A 353 70 - 400 mg/dL 07/19/2021 5:33 PM EDT [facility] Blood Venipuncture / Unknown 07/19/2021 4:05 PM EDT 07/19/2021 4:05 PM EDT Kiya FerrarirobertoMiguel ÁngelBlunt CORRECTIONS CORPORAL LAB BLOOD ORDER LUCA Final Result Performing Organization Address [facility] [place] [address], [facility] [phone] * (ABNORMAL) Gamma GT (07/19/2021 4:05 PM EDT) GGT 123(H) 5 - 85 U/L 07/19/2021 5:33 PM EDT [facility] Blood Venipuncture / Unknown 07/19/2021 4:05 PM EDT 07/19/2021 4:05 PM EDT us Kiya FerrarirobertoKody CORRECTIONS CORPORAL LAB BLOOD ORDER LUCA Final Result Performing Organization Address [facility] [place] [address], [facility] [phone] * Ruhwu-4-lkooxojjona (BH GH L LMW YH) (07/19/2021 4:05 PM EDT) Xggpp-3-Wpetqpjob in 183 83 - 199 mg/dL 07/24/2021 12:45 PM EDT [facility] Comment: Test Performed at: [employer] [place] [address] ?? Teodoro Shore M.D., Ph.D.,Director of Laboratories Blood Venipuncture / Unknown 07/19/2021 4:05 PM EDT 07/19/2021 4:05 PM EDT us Kiyalyndsay Macias CORRECTIONS CORPORAL LAB BLOOD ORDER LUCA Final Result [facility] * Ceruloplasmin (07/19/2021 4:05 PM EDT) Ceruloplasmin 33 18 - 51 mg/dL 07/20/2021 2:53 PM EDT [facility] DEPARTMENT OF LABORATORY MEDICINE Blood Venipuncture / Unknown 07/19/2021 4:05 PM EDT 07/19/2021 4:05 PM EDT us Kiya Valeratrinidad Macias CORRECTIONS CORPORAL LAB BLOOD ORDER LUCA Final Result Performing Organization Address City/[facility] Co de Phone Number [facility] DEPARTMENT OF LABORATORY MEDICINE [address] [place] [address] * Anti-smooth muscle antibody, IgG (L LMW Q) (07/19/2021 4:05 PM EDT) Actin (Smooth Muscle) Antibody, IgG <20 <20 U 07/24/2021 12:07 AM EDT [facility] Comment: Reference Range: ?? <20 U: Negative [...] with AIH type 1. Test Performed at: [employer] [address] ?? Teodoro Shore M.D., Ph.D.,Director of Laboratories Blood Venipuncture / Unknown 07/19/2021 4:05 PM EDT 07/19/2021 4:05 PM EDT Kiya Valerazabeth Colleen MEDEIORS LAB BLOOD ORDER LUCA Final Result Performing Organization Address [facility] de Phone Number [facility] * Protime and INR (07/19/2021 4:05 PM EDT) Pathologist [facility] Prothrombin Time 11.0 9.9 - 11.8 seconds 07/19/2021 5:22 PM EDT [facility] INR 1.1 0.9 - 1.1 07/19/2021 5:22 PM EDT [facility] Comment: RECOMMENDED INR THERAPEUTIC RANGES: ?STANDARD INTENSITY......2.0-3.0 ?HIGH INTENSITY..........2.5-3.5 Blood Venipuncture / Unknown 07/19/2021 4:05 PM EDT 07/19/2021 4:05 PM EDT [facility] - 07/19/2021 5:22 PM EDT As of January 10, 2020 this assay is being performed on new instrumentation. Please note that the reference ranges may have changed. us Kiya Macias APRN LAB BLOOD ORDER LUCA Final Result Performing Organization Address [facility] [place] [address], [facility] [phone] * (ABNORMAL) Liver fibrosis, FibroTest-ActiTest panel ( GH LMW Q YH) (07/19/2021 4:05 PM [...] a>0.62 and a<=1.00 : A3 (severe activity) Elcmk-8-Hdmsftjqhgz in 186 106 - 279 mg/dL 07/26/2021 2:24 PM EDT [facility] Haptoglobin 209 43 - 212 mg/dL 07/26/2021 2:24 PM EDT [facility] Apolipoprotein A-1 132 101 - 198 mg/dL 07/26/2021 2:24 PM EDT [facility] Bilirubin, Total 0.4 0.2 - 1.2 mg/dL 07/26/2021 2:24 PM EDT [facility] GGT 90(H) 3 - 65 U/L 07/26/2021 2:24 PM EDT [facility] Alanine Aminotransferase (ALT) 10 6 - 29 U/L 07/26/2021 2:24 PM EDT [facility] Reference ID [id number] 07/26/2021 2:24 PM EDT [facility] Footnote SEE BELOW 07/26/2021 2:24 PM EDT [facility] Comment: The reliability of results is [...] The performance characteristics have been determined by [facility]. It has not been cleared or approved by the U.S. Food and Drug Administration. Performance characteristics refer to the analytical performance of the test. [employer], the associated logo, [employer] and all associated [employer] gonzales are the registered trademarks of [employer]. All third libertarian gonzales - (R) and (TM) - are the property of their respective owners. (C) 1512-7878 [employer]. All rights reserved. Test performed by [employer] ?[address], ?[place] [address] ? Veneer Lathe Operator: Milana Baptiste MD,PHD,DECLAN Test Reported by [employer], [address] [place] [address] Teodoro Shore M.D., Ph.D., Director of Laboratories , [facility] [id number] Blood Venipuncture / Unknown 07/19/2021 4:05 PM EDT 07/19/2021 4:05 PM EDT Kiya Macias APRN LAB BLOOD ORDER LUCA Final Result [facility] documented in this encounter Visit Diagnoses Diagnosis Fatty metamorphosis of liver- Primary Other chronic nonalcoholic liver disease Acid phosphatase elevated Other nonspecific abnormal serum enzyme levels documented in this encounter Additional Health Concerns Assessment Noted Time PHQ-9 Depression Total Score: 0 07/10/20 21 10:52 AM EDT documented as of this encounter Care Teams Oil And Gas Lease Pumper Relationship Specialty Start Date End Date Jace Blake DO [address] [place] [address] PCP - General Family Medicine 08/01/14 documented as of this encounter
--- OUTSIDE RECORDS SUMMARY | 2025-03-31 12:59 | XMS_ITS | Encounter Summary ---
Author Organization [facility] Address [address] [place] [address] Care Team Providers Care Rail Splitter Name Role Phone Jace Blake MD Primary Care Provider Provider, Rachid GARCIA Unavailable Unavaila Andres Topete MD Unavailable [phone] Aki Ross MD Unavailable [phone] Ursula Boo MD Unavailable Rocio Youssef PA-C Unavailable Emeterio Valencia MD Unavailable Diana Coppola MD Unavailable Encounter Details Date Type Department Care Team (Late st Contact Info) Description 02/19/2023 Scanned Document [facility] [address] [place] [address] Tl Mancera, WALDEMAR 5 [facility] 2 [place] [address] Social History Tobacco Use Types [...] 10:00 AM EDT Office Visit [facility] [place] [address] [phone] Aki Ross MD [address] [place] [address] 05/11/2025 1:40 PM EDT Office Visit [facility] Medical [facility] Dermatology [place] [address] [place] [address] Nico Bailey MD [address] [place] [address] documented as of this encounter Visit Diagnoses Not on filedocumented in this encounter Additional Health Concerns Infection Onset Date Last Indicated Resolved Time R/O Gastrointestinal Infection 03/22/2025 03/22/2025 03/23/2025 10:28 PM EDT documented as of this encounter Care Teams Rail Splitter Relationship Specialty Start Date End Date Jace Blake MD [address] [place] [address] PCP - General Psychiatry, General 05/04/17 Rachid Robles MD 04/27/17 Andres Lakhani MD [address] [place] [address] Marketing And Communications Officer Cardiology 07/08/19 Aki Ross MD [address] [address] Primary Marketing And Communications Officer Cardiovascular Disease 07/08/19 Ursula Boo MD [address] [address] Gastroenterology 06/07/20 Rocio Youssef PA-C [address] [place] [address] Physician Transit Police Officer Gastroenterology 06/07/20 Emeterio Valencia MD [address] [place] [address] Clinician Pulmonary Medicine 06/20/20 Diana Coppola MD [address] [place] [address] Internal Medicine 03/22/25 documented as of this encounter
--- OUTSIDE RECORDS SUMMARY | 2025-03-31 12:59 | XMS_ITS | Encounter Summary ---
Author Organization [facility] and [facility] Address [address] [place] [phone] Care Team Providers Care Sealer Sander Name Role Phone Jace Blake DO Primary Care Provider [phone] Encounter Details Date Type Department Care Team (Late st Contact Info) Description 06/02/2023 Scanned Document [facility] [address] [place] [address] External, Provider Social History Tobacco Use Types [...] EDT Follow Up Neuromuscular Medicine at [address] [address] Silvestre Maldonado MD [address] [place] [phone] 07/19/2025 12:20 PM EDT Follow Up Congestive Heart Failure Program at 800 [facility] [address] [place] [address] Diana Coppola MD [address] [place] [phone] 10/05/2025 12:30 PM EST Appointment PULMONARY FUNCTION LABORATORY - [address] [address] Aparna Chang MD [address] [place] [phone] Hallway, Pft Walk 10/05/2025 1:00 PM EST Appointment PULMONARY FUNCTION LABORATORY - [address] [address] Aparna Chang MD [address] [place] [phone] 1, Pft Procedure Room 10/05/2025 2:00 PM EST Office Visit [facility] [address] [phone] Aparna Chang MD [address] [place] [phone] documented as of this encounter Procedures [...] documented as of this encounter Care Teams Sealer Sander Relationship Specialty Start Date End Date Jace Blake DO [address] [place] [address] PCP - General Family Medicine 08/01/14 documented as of this encounter
--- OUTSIDE RECORDS SUMMARY | 2025-03-31 12:59 | XMS_ITS | Encounter Summary ---
Author Organization [facility] and [facility] Address [address] [place] [address] Care Team Providers Care Community Center Director Name Role Phone HaydenJace Primary Care Provider [phone] Encounter Details Date Type Department Care Team (Latest Contact Info) Description 09/17/2020 Evaluation Electrophysiology & Cardiac Arrhythmia Program [address] [place] [address] 2nd Floor Center [place], [place] [phone] Jessica Chirinos RN Pacemaker (Primary Dx) Social [...] EDT Follow Up Neuromuscular Medicine at 800 [facility] 800 [facility] Lower [place], [place] [address] Silvestre Malodnado MD 800 [address] [facility] [place] [address] 07/19/2025 12:20 PM EDT Follow Up Congestive Heart Failure Program at 800 [facility] [address] [place] [address] Diana Coppola MD 800 [place] [address] 10/05/2025 12:30 PM EST Appointment PULMONARY FUNCTION LABORATORY - [address] [address] Aparna Chang MD [address] [place] [phone] Hallway, Pft Walk 10/05/2025 1:00 PM EST Appointment PULMONARY FUNCTION LABORATORY - [address] [address] Aparna Chang MD [address] [place] [phone] 1, Pft Procedure Room 10/05/2025 2:00 PM EST Office Visit [facility] [address] [address] Aparna Chang MD [address] [place] [phone] documented as of this encounter Visit Diagnoses Diagnosis Pacemaker- Primary Cardiac pacemaker in situ documented in this encounter Care Teams Community Center Director Relationship Specialty Start Date End Date Jace Blake DO [address] [place] [address] PCP - General Family Medicine 08/01/14 documented as of this encounter
--- OUTSIDE RECORDS SUMMARY | 2025-03-31 12:59 | XMS_ITS | Encounter Summary ---
Author Organization [facility] and [facility] Address [address] [place] [address] Care Team Providers Care Forest Ecology Professor Name Role Phone Blake, Gary Primary Care Provider [phone] Encounter Details Date Type Department Care Team (Late st Contact Info) Description 08/05/2021 Orders Only Rheumatology at [address] [place], [place] [phone] Meghana Hunter MD [address] [place] [phone] LFT elevation Social History Tobacco Use [...] EDT Follow Up Neuromuscular Medicine at [address] [address] Silvestre Maldonado MD 800 [place] [address] 07/19/2025 12:20 PM EDT Follow Up Congestive Heart Failure Program at 800 [facility] [address] [place] [address] Diana Coppola MD 800 [place] [address] 10/05/2025 12:30 PM EST Appointment PULMONARY FUNCTION LABORATORY - [address] [address] Aparna Chang MD [address] [place] [phone] [facility] P[facility] Walk 10/05/2025 1:00 PM EST Appointment PULMONARY FUNCTION LABORATORY - [address] [address] Aparna Chang MD [address] [place] [phone] 1, Pft Procedure Room 10/05/2025 2:00 PM EST Office Visit [facility] [address] [phone] Aparna Chang MD [address] [place] [phone] documented as of this encounter Procedures Procedure Name Priority Date/Time Associated Diagnosis Comments C-REACTIVE PROTEIN (CRP) Routine 08/05/2021 7:56 AM EDT LFT elevation documented in this encounter Results * (ABNORMAL) C-reactive protein (CRP) (08/05/2021 7:56 AM EDT) C-Reactive Protein 3.17(H) <0.30 mg/dL 08/05/2021 8:25 AM EDT [facility] Blood Venipuncture / Unknown 08/05/2021 7:56 AM EDT 08/05/2021 8:13 AM EDT us Meghana Hunter MD LAB BLOOD ORDERABLES Final Result Performing Organization Address City/State/[facility] Co de Phone Number [address] [phone] documented in this encounter Visit Diagnoses Diagnosis LFT elevation Other abnormal blood chemistry documented in this encounter Additional Health Concerns Assessment Noted Time PHQ-9 Depression Total Score: 0 07/10/20 21 10:52 AM EDT documented as of this encounter Care Teams Forest Ecology Professor Relationship Specialty Start Date End Date Jace Blake DO [address] [place] [address] PCP - General Family Medicine 08/01/14 documented as of this encounter
--- OUTSIDE RECORDS SUMMARY | 2025-03-31 12:59 | XMS_ITS | Encounter Summary ---
Author Organization [facility] and [facility] Address [address] [place] [address] Care Team Providers Care Quality Assurance Analyst Name Role Phone Blake, Gary Primary Care Provider [phone] Encounter Details Date Type Department Care Team (Latest Contact Info) Description 04/03/2021 Transcribed Orders [facility] Specimens [address] [place] [address] Yessica Ortega MD [address] [place] [phone] Lupus (HC Code) (Primary Dx); Pulmonary hypertension (HC Code); Sjogren's syndrome, with unspecified organ involvement; Pre-op testing Social History Tobacco Use Types [...] [facility] 800 [facility], [place] [address] Silvestre Maldonado MD 800 [place] [address] 07/19/2025 12:20 PM EDT Follow Up Congestive Heart Failure Program at 800 [facility] 800 [facility] 2nd [place] [address] Diana Coppola MD 800 [place] [address] 10/05/2025 12:30 PM EST Appointment PULMONARY FUNCTION LABORATORY - [address] [phone] Aparna Chang MD [address] [place] [phone] Hallway, Pft Walk 10/05/2025 1:00 PM EST Appointment PULMONARY FUNCTION LABORATORY - [address] [phone] Aparna Chang MD [address] [place] [phone] 1, Pft Procedure Room 10/05/2025 2:00 PM EST Office Visit [facility] [address] [phone] Aparna Chang MD [address] [place] [phone] documented as of this encounter Results * COVID-19 Clearance or for Placement Only (04/06/2021 8:42 AM EDT) SARS-CoV-2 RNA (COVID-19) Negative Negative 04/06/2021 3:25 PM EDT [facility] Comment: A negative result does not preclude SARS-CoV-2 infections and should not be used as the sole basis for treatment or other management decisions. ?? This assay is a Nucleic Acid Amplification Test (NAAT)/RT-PCR or TMA ([employer]). This is run on the CRV system. It has been validated for clinical use by the [facility] (CLIA #: [id number]). It has been granted Emergency Use Authorization by the [place] FDA. Note that falsely negative results can be due to poor sample quality, suboptimal sample type, low viral load, and viral genome variability. This test has not been evaluated for use in asymptomatic individuals. Test ordering and interpretation is at the discretion of the ordering provider. Patient Information: https://www.fda.gov/media/713091/download ?? Provider Information: https://www.fda.gov/media/782337/download Test performance has not been evaluated in asymptomatic patients. Test ordering and result interpretation is at the discretion of the ordering provider. Viral NASOPHARYNGEAL STRUCTURE / Unknown Collection / Unknown 04/06/2021 8:42 AM EDT 04/06/2021 11:10 AM EDT Yessica Ortega MD MICROBIOLOGY - GENERAL ORDERAB LES Final Result [address] [phone] documented in this encounter Visit Diagnoses Diagnosis Lupus- Primary Systemic lupus erythematosus Pulmonary hypertension (HC Code) Other chronic pulmonary heart diseases Sjogren's syndrome, with unspecified organ involvement Pre-op testing Preoperative examination, unspecified documented in this encounter Additional Health Concerns Assessment Noted Time PHQ-9 Depression Total Score: 0 10/03/20 20 12:10 PM EST documented as of this encounter Care Teams Quality Assurance Analyst Relationship Specialty Start Date End Date Jace Blake DO [address] [place] [address] PCP - General Family Medicine 08/01/14 documented as of this encounter
--- OUTSIDE RECORDS SUMMARY | 2025-03-31 12:59 | XMS_ITS | Encounter Summary ---
Author Organization [facility] and [facility] Address [address] [place] [address] Care Team Providers Care Caramel Candy Maker Name Role Phone BlakeJace Primary Care Provider [phone] Encounter Details Date Type Department Care Team (Late st Contact Info) Description 03/27/2021 Scanned Document INTERFACE DEFAULT [address] [place] [address] System, Provider Not In Social History Tobacco [...] Follow Up [facility] at [address] [address] Silvestre Maldonado MD [address] [place] [phone] 07/19/2025 12:20 PM EDT Follow Up Congestive Heart Failure Program at 800 [facility] [address] [place] [address] Diana Coppola MD [address] [place] [phone] 10/05/2025 12:30 PM EST Appointment [facility] - [address] [address] Aparna Chang MD [address] [place] [phone] [facility] 10/05/2025 1:00 PM EST Appointment [facility] LAB[facility] - [address] [address] Aparna Chang MD [address] [place] [phone] 1, Pft Procedure Room 10/05/2025 2:00 PM EST Office Visit [facility] [address] [phone] Aparna Chang MD [address] [place] [phone] documented as of this encounter Visit Diagnoses Not on filedocumented in this encounter Additional Health Concerns Assessment Noted Time PHQ-9 Depression Total Score: 0 10/03/20 20 12:10 PM EST documented as of this encounter Care Teams Caramel Candy Maker Relationship Specialty Start Date End Date Jace Blake DO [address] [place] [address] PCP - General Family Medicine 08/01/14 documented as of this encounter
--- OUTSIDE RECORDS SUMMARY | 2025-03-31 12:59 | XMS_ITS | Encounter Summary ---
Author Organization [facility] and [facility] Address [address] [place] [address] Care Team Providers Care Inspector Filter Tip Name Role Phone Hayden Jace Primary Care Provider [phone] Encounter Details Date Type Department Care Team (Late st Contact Info) Description 04/03/2021 Transcribed Orders [facility] Specimens [address] [place], [place] [phone] Yessica Ortega MD [address] [place] [phone] Social History Tobacco Use Types Packs/Day [...] EDT Follow Up Neuromuscular Medicine at [address] [address] Silvestre Maldonado MD 800 [place] [address] 07/19/2025 12:20 PM EDT Follow Up [facility] Cong[facility] Failure [facility] at 800 [facility] [address] [address] Diana Coppola MD 800 [place] [address] 10/05/2025 12:30 PM EST Appointment P[facility] - [address] [phone] Aparna Chang MD [address] [place] [phone] [facility], Pft Walk 10/05/2025 1:00 PM EST Appointment [facility] - [address] [address] Aparna Chang MD [address] [place] [phone] 1, Pft Procedure Room 10/05/2025 2:00 PM EST Office Visit [facility] [address] [address] Aparna Chang MD [address] [place] [phone] documented as of this encounter Visit Diagnoses Not on filedocumented in this encounter Additional Health Concerns Assessment Noted Time PHQ-9 Depression Total Score: 0 10/03/20 20 12:10 PM EST documented as of this encounter Care Teams Inspector Filter Tip Relationship Specialty Start Date End Date Jace Blake DO [address] [place] [phone] PCP - General Family Medicine 08/01/14 documented as of this encounter
--- OUTSIDE RECORDS SUMMARY | 2025-03-31 12:59 | XMS_ITS | Encounter Summary ---
Author Organization [facility] Address [address] [place] [address] Care Team Providers Care Chocolate Finisher Name Role Phone Jace Blake MD Primary Care Provider [phone] Provider, Rachid GARCIA Unavailable Unavaila Andres Topete MD Unavailable [phone] Aki Ross MD Unavailable [phone] Ursula Boo MD Unavailable [phone] Rocio Youssef PA-C Unavailable Emeterio Valencia MD Unavailable Diana Coppola MD Unavailable Encounter Details Date Type Department Care Team (Late st Contact Info) Description 06/24/2023 Scanned Document [facility] [address] [place] [address] Ursula Boo MD [address] [place] [phone] Social History Tobacco Use Types Packs/Day [...] [facility] [place] [address] [phone] Aki Ross MD [address] [place] [address] 05/11/2025 1:40 PM EDT Office Visit [facility] Dermatology [address] [phone] Nico Bailey MD [address] [place] [address] documented as of this encounter Visit Diagnoses Not on filedocumented in this encounter Additional Health Concerns Infection Onset Date Last Indicated Resolved Time R/O Gastrointestinal Infection 03/22/2025 03/22/2025 03/23/2025 10:28 PM EDT documented as of this encounter Care Teams Chocolate Finisher Relationship Specialty Start Date End Date Jace Blake MD [address] [place] [address] PCP - General Psychiatry, General 05/04/17 Rachid Robles MD 04/27/17 Andres Lakhani MD [address] [place] [address] Extension Work Director Cardiology 07/08/19 Aki Ross MD [address] [address] Primary Extension Work Director Cardiovascular Disease 07/08/19 Ursula Boo MD [address] [address] Gastroenterology 06/07/20 Rocio Youssef PA-C [address] [place] [address] Physician Civil Structural Engineer Gastroenterology 06/07/20 Emeterio Valencia MD [address] [place] [address] Clinician Pulmonary Medicine 06/20/20 Diana Coppola MD [address] [place] [address] Internal Medicine 03/22/25 documented as of this encounter
--- OUTSIDE RECORDS SUMMARY | 2025-03-31 12:59 | XMS_ITS | Encounter Summary ---
Author Organization [facility] Address [address] [place] [address] Care Team Providers Care Therapeutic Massage Technician Name Role Phone Jace Blake MD Primary Care Provider Provider, Rachid GARCIA Unavailable Unavaila Andres Topete MD Unavailable [phone] Aki Ross MD Unavailable [phone] Ursula Boo MD Unavailable Rocio Youssef PA-C Unavailable Emeterio Valencia MD Unavailable Diana Coppola MD Unavailable Encounter Details Date Type Department Care Team (Late st Contact Info) Description 03/12/2023 Scanned Document [facility] [address] [place] [address] Ursula Boo MD [address] [place] [phone] Social History Tobacco Use Types Packs/Day [...] Description 05/04/2025 10:00 AM EDT Office Visit [facility] [place] [address] [phone] Aki Ross MD [address] [place] [address] 05/11/2025 1:40 PM EDT [facility] Visit [facility] Dermatology [address] [address] Nico Bailey MD [address] [place] [address] documented as of this encounter Visit Diagnoses Not on filedocumented in this encounter Additional Health Concerns Infection Onset Date Last Indicated Resolved Time R/O Gastrointestinal Infection 03/22/2025 03/22/2025 03/23/2025 10:28 PM EDT documented as of this encounter Care Teams Therapeutic Massage Technician Relationship Specialty Start Date End Date Jace Blake MD [address] [place] [address] PCP - General Psychiatry, General 05/04/17 Rachid Robles MD 04/27/17 Andres Lakhani MD [address] [place] [address] Hollow Tile Partition Erector Cardiology 07/08/19 Aki Ross MD [address] [address] Primary Hollow Tile Partition Erector Cardiovascular Disease 07/08/19 Ursula Boo MD [address] [address] Gastroenterology 06/07/20 Rocio Youssef PA-C [address] [place] [address] Physician Turbine Engineer Gastroenterology 06/07/20 Emeterio Valencia MD [address] [place] [address] Clinician Pulmonary Medicine 06/20/20 Diana Coppola MD [address] [place] [address] Internal Medicine 03/22/25 documented as of this encounter
--- OUTSIDE RECORDS SUMMARY | 2025-03-31 12:59 | XMS_ITS | Encounter Summary ---
Author Organization [facility] Address [address] [place] [address] Care Team Providers Care Display And Banner Designer Name Role Phone Jace Blake MD Primary Care Provider Provider, Rachid GARCIA Unavailable Unavaila Andres Topete MD Unavailable [phone] Aki Ross MD Unavailable [phone] Usrula Boo MD Unavailable Rocio Youssef PA-C Unavailable [phone] Emeterio Valencia MD Unavailable Diana Coppola MD Unavailable Encounter Details Date Type Department Care Team (Late st Contact Info) Description 05/03/2018 Scanned Document [facility] [place] [address] [place] [address] Provider, External, [address] [place] [address] Social History Tobacco Use Types Packs/Day Years Used Date Smoking Tobacco: Former Comments Unknown Sex and Gender Information Value [...] Description 05/04/2025 10:00 AM EDT Office Visit [facility] [place] [address] [address] Aki Ross MD [address] [place] [address] 05/11/2025 1:40 PM EDT Office Visit [facility] D[facility]ology [place] [address] [place] [phone] Nico Bailey MD [address] [place] [address] documented as of this encounter Visit Diagnoses Not on filedocumented in this encounter Additional Health Concerns Infection Onset Date Last Indicated Resolved Time R/O Gastrointestinal Infection 03/22/2025 03/22/2025 03/23/2025 10:28 PM EDT documented as of this encounter Care Teams Display And Banner Designer Relationship Specialty Start Date End Date Jace Blake MD [address] [place] [address] PCP - General Psychiatry, General 05/04/17 Rachid Robles MD 04/27/17 Andres Lakhani MD [address] [place] [address] System Controller Cardiology 07/08/19 Aki Ross MD [address] [place] [address] Primary System Controller Cardiovascular Disease 07/08/19 Ursula Boo MD [address] [address] Gastroenterology 06/07/20 Rocio Youssef PA-C [address] [address] Physician Cleaner Carpet And Upholstery Gastroenterology 06/07/20 [place] [address] [address] Clinician Pulmonary Medicine 06/20/20 Diana Coppola MD [address] [address] Internal Medicine 03/22/25 documented as of this encounter
--- OUTSIDE RECORDS SUMMARY | 2025-03-31 12:59 | XMS_ITS | Continuity of Care Document ---
Author Organization [facility] Address [address] [place] [phone] Phone Care Team Providers Care Supervisor Assembly And Packing Name Role Phone Cece OD OD, Gamal Unavailable Unavailable Allergies, Adverse Reactions, Alerts Substance Reaction Status Criticality No Known Allergies Active No Inform ation Advance Directives Directive Yes / No Effective Date File Name No Information Encounters Encounter Description Practice Location Reason(s) For Visit Diagnoses Date Provider Providers Copied on Encounter [facility] , [address] [place] [address], [id number], [place] tel:[phone] [facility] Noé Stephens Other secondary cataract, left eyeAge-related nuclear cataract, left eyeUnspecified blepharitis right upper eyelidConjunctival hemorrhage, left eyeAge-related nuclear cataract, right eyeAge-related nuclear cataract, bilateralOther secondary cataract, bilateralVitreous degeneration, bilateralOther secondary cataract, right eyeDry eye syndrome of bilateral lacrimal glandsPersonal history of other diseases of the nervous system and sense organsUnspecified blepharitis left upper eyelid Apr-0 1 [facility] Gamal. [address] [place], [place], [id number] , [place]. tel: [phone] [facility] , [address] [place] [address], [id number], [place] tel:[phone] No Location No Information Apr-2 0 [facility] OD Gamal. [address] [place], [place], [id number] , [place]. tel:[phone] [facility] , [address] [place] [address], [id number], [place] tel:[phone] [facility] Noé Stephens Dry eye syndrome of bilateral lacrimal glandsVitreous degeneration, bilateral Feb-2 0 Cece MATHEW Gamal. [address] [place], [place], [id number] , [place]. tel:[phone] Family History Family Member Type Diagnosis Age At Onset No Information Payers Payer name Insurance type Covered constitution party ID Authoriza tion(s) No Information Social [...]
--- OUTSIDE RECORDS SUMMARY | 2025-03-31 12:59 | XMS_ITS | Encounter Summary ---
Author Organization [facility] Address [address] [place] [address] Care Team Providers Care Military Professional Name Role Phone Blake, Gary Primary Care Provider [phone] Encounter Details Date Type Department Care Team (Latest Contact Info) Description 08/27/2020 Transcribed Orders [facility] [address] [place] [address] Meghana Hunter MD [address] [place] [phone] Acquired polyneuropathy (HC Code) (Primary Dx); Sicca syndrome (HC Code); Tropical pulmonary alveolitis Social History Tobacco Use Types Packs/Day Years [...] EDT Follow Up Neuromuscular Medicine at [address] [place] [address] 800 [facility] [place] [address] Silvestre Maldonado MD [address] [place] [address], [place] [phone] 07/19/2025 12:20 PM EDT Follow Up Congestive Heart Failure Program at [address] [place] [address] 800 [facility] 2nd [place] [address] Diana Coppola MD [address] [place] [address], [place] [address] 10/05/2025 12:30 PM EST Appointment [facility] - [address] [address] Aparna Chang MD [address] [place] [phone] [facility], Pft Walk 10/05/2025 1:00 PM EST Appointment P[facility] LAB[facility] - [address] [address] Aparna Chang MD [address] [place] [phone] 1, Pft Procedure Room 10/05/2025 2:00 PM EST Office Visit [facility] [address] [phone] Aparna Chang MD [address] [place] [phone] documented as of this encounter Results [...] ??X Test developed and characteristics determined by [facility]. See Compliance Statement D: [employer]/ Helga-1 (Histidyl-tRNA Synthetase) Ab, IgG 0 0 - 40 AU/mL 09/13/2020 2:32 PM EDT [facility] Comment: INTERPRETIVE INFORMATION: ??Helga-1 Antibody, IgG ??29 AU/mL or less.........Negative ??30-40 AU/mL..............Equivocal ??41 AU/mL or greater......Positive Presence of Helga-1 (antihistidyl transfer RNA [t-RNA] synthetase) antibody is associated with polymyositis and may also be seen in patients with dermatomyositis. Helga-1 antibody is associated with pulmonary involvement (interstitial lung disease), Raynaud phenomenon, arthritis, and telegraphic typewriter mechanic's hands (implicated in antisynthetase syndrome). PL-12 (alanyl-tRNA synthetase) Antibody Negative Negative 09/13/2020 2:32 PM EDT [facility] PL-7 (threonyl-tRNA synthetase) Antibody Negative Negative 09/13/2020 2:32 PM EDT [facility] OJ (isoleucyl-tRNA synthetase) Antibody Negative Negative 09/13/2020 2:32 PM EDT [facility] EJ (glycyl-tRNA synthetase) Antibody Negative Negative 09/13/2020 2:32 PM EDT [facility] SRP (Signal Recognition Particle) Ab Negative Negative 09/13/2020 2:32 PM EDT [facility] Mi-2 (nuclear helicase protein) Antibody Negative Negative 09/13/2020 2:32 PM EDT [facility] P155/140 Antibody Negative Negative 020 2:32 PM EDT [facility] Comment: Performed by [facility], [address] [place] [id number] [email or web address], Laura Coleman MD, Lab. 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
--- OUTSIDE RECORDS SUMMARY | 2025-03-31 12:59 | XMS_ITS | Encounter Summary ---
Author Organization [facility] Address [address] [place] [address] Care Team Providers Care Hand Pattern Marker Name Role Phone Miguel Angel Blakey Primary Care Provider [phone] Encounter Details Date Type Department Care Team (Late st Contact Info) Description 03/27/2021 Orders Only Neurology [address] [place] [address] Ambrosio Wallace MD PhD [address] [place] [phone] Idiopathic peripheral neuropathy (Primary Dx) Social [...] EDT Follow Up Neuromuscular Medicine at [address] [address] Silvestre Maldonado MD [facility] [address] [place] [phone] 07/19/2025 12:20 PM EDT Follow Up [facility] at 800 [facility] [address] [address] Diana Coppola MD 800 [place] [phone] 10/05/2025 12:30 PM EST Appointment [facility] - [address] [address] Aparna Chang MD [address] [place] [phone] [facility], Pft Walk 10/05/2025 1:00 PM EST Appointment [facility] - [address] [address] Aparna Chang MD [address] [place] [phone] 1, Pft Procedure Room 10/05/2025 2:00 PM EST Office Visit [facility] [address] [phone] Aparna Chang MD [address] [place] [phone] documented as of this encounter Visit Diagnoses Diagnosis Idiopathic peripheral neuropathy- Primary Unspecified hereditary and idiopathic peripheral neuropathy documented in this encounter Additional Health Concerns Assessment Noted Time PHQ-9 Depression Total Score: 0 10/03/20 20 12:10 PM EST documented as of this encounter Care Teams Hand Pattern Marker Relationship Specialty Start Date End Date Jace Blake DO [address] [place] [address] PCP - General Family Medicine 08/01/14 documented as of this encounter
--- OUTSIDE RECORDS SUMMARY | 2025-03-31 12:59 | XMS_ITS | Encounter Summary ---
Author Organization [facility] Address [address] [place] [address] Care Team Providers Care Geographic Information Systems Manager Name Role Phone Jace Blake DO Primary Care Provider [phone] Encounter Details Date Type Department Care Team (Late st Contact Info) Description 04/05/2021 Orders Only [facility]UL[facility] [place] [address] Ines Roman, WALDEMAR [address] [place] [phone] Pre-op testing Social History Tobacco Use [...] EDT Follow Up Neuromuscular Medicine at [address] [address] Silvestre Maldonado MD 800 [place] [place] [phone] 07/19/2025 12:20 PM EDT Follow Up Congestive Heart Failure Program at 800 [facility] [address] [facility] [address] [facility] [place] [address] Diana Coppola MD 800 [facility] [place] [phone] 10/05/2025 12:30 PM EST Appointment [facility] LAB[facility]AT[facility] - [address] [address] Aparna Chang MD [address] [place] [phone] [facility] 10/05/2025 1:00 PM EST Appointment [facility] LAB[facility] - [address] [address] Aparna Chang MD [address] [place] [phone] 1, Pft Procedure Room 10/05/2025 2:00 PM EST Office Visit [facility] [address] [phone] Aparna Chang MD [address] [place] [phone] documented as of this encounter Results * SARS CoV-2 (COVID-19) PCR - [facility] (Patient Scheduled for Surgery/Procedure) (04/15/2021 8:29 AM EDT) SARS-CoV-2 RNA (COVID-19) Negative Negative 04/15/2021 2:20 PM EDT [facility] Comment: A negative result does not preclude SARS-CoV-2 infections and should not be used as the sole basis for treatment or other management decisions. ?? This assay is a Nucleic Acid Amplification Test (NAAT)/RT-PCR or TMA (Biomedical Innovationher System). This is run on the [employer] system. It has been validated for clinical use by the [facility] (CLIA #: [id number]). It has been granted Emergency Use Authorization by the [place] FDA. Note that falsely negative results can be due to poor sample quality, suboptimal sample type, low viral load, and viral genome variability. This test has not been evaluated for use in asymptomatic individuals. Test ordering and interpretation is at the discretion of the ordering provider. Patient Information: https://www.fda.gov/media/720696/download ?? Provider Information: https://www.fda.gov/media/065887/download Test performance has not been evaluated in asymptomatic patients. Test ordering and result interpretation is at the discretion of the ordering provider. Viral NASOPHARYNGEAL STRUCTURE / Unknown Collection / Unknown 04/15/2021 8:29 AM EDT 04/15/2021 10:23 AM EDT Ines Roman APRN MICROBIOLOGY - GENERAL ORDERABLES Final Result Performing Organization Address City/State/[place] Co de Phone Number [address] [phone] documented in this encounter Visit Diagnoses Diagnosis Pre-op testing Preoperative examination, unspecified documented in this encounter Additional Health Concerns Assessment Noted Time PHQ-9 Depression Total Score: 0 10/03/20 20 12:10 PM EST documented as of this encounter Care Teams Geographic Information Systems Manager Relationship Specialty Start Date End Date Jace Blake DO [address] [place] [address] PCP - General Family Medicine 08/01/14 documented as of this encounter
--- OUTSIDE RECORDS SUMMARY | 2025-03-31 12:59 | XMS_ITS | Encounter Summary ---
Author Organization [facility] Address [address] [place] [address] Care Team Providers Care Surveillance Systems Analyst Name Role Phone Jace Blake MD Primary Care Provider Provider, Rachid GARCIA Unavailable Unavaila Andres Topete MD Unavailable [phone] Aki Ross MD Unavailable [phone] Ursula Boo MD Unavailable Rocio Youssef PA-C Unavailable Emeterio Valencia MD Unavailable Diana Coppola MD Unavailable Encounter Details Date Type Department Care Team (Late st Contact Info) Description 05/12/2018 Scanned Document [facility] [place] [address] [place] [address] Provider, External, [address] [place] [address] Social History Tobacco Use Types Packs/Day Years [...] Description 05/04/2025 10:00 AM EDT Office Visit [facility] [place] [facility] [address] [address] Aki Ross MD [address] [place] [address] 05/11/2025 1:40 PM EDT Office Visit [facility] Dermatology [facility] [address] [place] [address] Nico Bailey MD [address] [place] [address] documented as of this encounter Visit Diagnoses Not on filedocumented in this encounter Additional Health Concerns Infection Onset Date Last Indicated Resolved Time R/O Gastrointestinal Infection 03/22/2025 03/22/2025 03/23/2025 10:28 PM EDT documented as of this encounter Care Teams Surveillance Systems Analyst Relationship Specialty Start Date End Date Jace Blake MD [address] [place] [address] PCP - General Psychiatry, General 05/04/17 Rachid Robles MD 04/27/17 Andres Lakhani MD [address] [place] [address] Grant Specialist Cardiology 07/08/19 Aki Ross MD [address] [place] [address] Primary Grant Specialist Cardiovascular Disease 07/08/19 Ursula Boo MD [address] [address] Gastroenterology 06/07/20 Rocio Youssef PA-C [address] [address] Physician Survey Compiler Gastroenterology 06/07/20 [place] [address] [address] Clinician Pulmonary Medicine 06/20/20 Diana Coppola MD [address] [address] Internal Medicine 03/22/25 documented as of this encounter
--- OUTSIDE RECORDS SUMMARY | 2025-03-31 13:00 | XMS_ITS | Encounter Summary ---
Author Organization [facility] Address [address] [place] [address] Care Team Providers Care Configuration Developer Name Role Phone HaydenJace Primary Care Provider [phone] Encounter Details Date Type Department Care Team (Latest Contact Info) Description 07/14/2023 Transcribed Orders [facility] 45 [place] [address] Aki Ross MD [address] [address] Cardiac pacemaker in situ (Primary [...] AM EDT Follow Up Neuromuscular Medicine at [address] [place] [address] 800 [facility] [place] [address] Silvestre Maldonado MD [address] [place] [phone] 07/19/2025 12:20 PM EDT Follow Up Congestive Heart Failure Program at [address] [place] [address] 800 [facility]nd [place] [address] Diana Coppola MD [address] [place] [phone] 10/05/2025 12:30 PM EST Appointment [facility]AT[facility] - [address] [address] Aparna Chang MD [address] [place] [phone] [facility], Pft Walk 10/05/2025 1:00 PM EST Appointment P[facility] LAB[facility] - [address] [address] Aparna Chang MD [address] [place] [phone] 1, Pft Procedure Room 10/05/2025 2:00 PM EST Office Visit [facility] [address] [phone] Aparna Chang MD [address] [place] [phone] documented as of this encounter Results * Partial thromboplastin time (BH GH LMW Q YH) (07/16/2023 1:03 PM EDT) PTT 29.1 21.0 - 32.0 seconds 07/16/2023 3:13 PM EDT [facility] Comment: RECOMMENDED THERAPEUTIC RANGE: 40-80 SECONDS Blood Venipuncture / Unknown 07/16/2023 1:03 PM EDT 07/16/2023 1:03 PM EDT Aki Ross MD LAB BLOOD ORDERABLES Final Res ult Performing Organization Address [facility] [place] [address], [facility] [phone] * Protime and INR (07/16/2023 1:03 PM EDT) Prothrombin Time 11.0 9.0 - 11.1 seconds 07/16/2023 3:13 PM EDT [facility] INR 1.14 0.90 - 1.16 07/16/2023 3:13 PM EDT [facility] Comment: RECOMMENDED INR THERAPEUTIC RANGES: ?STANDARD INTENSITY......2.0-3.0 ?HIGH INTENSITY..........2.5-3.5 Blood Venipuncture / Unknown 07/16/2023 1:03 PM EDT 07/16/2023 1:03 PM EDT Aki Ross MD LAB BLOOD ORDERABLES Final Res ult Performing Organization Address [facility] [place] [address], [facility] [phone] documented in this encounter Visit Diagnoses Diagnosis Cardiac pacemaker in situ- Primary Preop examination Preoperative examination, unspecified documented in this encounter Additional Health Concerns Assessment Noted Time PHQ-9 Depression Total Score: 0 07/01/20 23 10:25 AM EDT documented as of this encounter Care Teams Configuration Developer Relationship Specialty Start Date End Date Jace Blake DO [address] [place] [address] PCP - General Family Medicine 08/01/14 documented as of this encounter
--- OUTSIDE RECORDS SUMMARY | 2025-03-31 13:00 | XMS_ITS | Encounter Summary ---
Author Organization [facility] Address [address] [place] [address] Care Team Providers Care Hotel Reservationist Name Role Phone Blake, Gary Primary Care Provider [phone] Encounter Details Date Type Department Care Team (Late st Contact Info) Description 08/23/2020 [facility] [address] [facility], 2nd floor [facility], [address] [place], [place] [address] Aparna Chang MD [address] [place] [address] Social History Tobacco Use Types Packs/Day [...] at 800 [facility] 800 [place] [address] Silvestre Maldonado MD 800 [place] [phone] 07/19/2025 12:20 PM EDT Follow Up Congestive Heart Failure Program at 800 [facility] [address] [place] [address] Diana Coppola MD 800 [place] [phone] 10/05/2025 12:30 PM EST Appointment [facility] - [address] [address] Aparna Chang MD [address] [place] [phone] [facility], Pft Walk 10/05/2025 1:00 PM EST Appointment P[facility] - [address] [place] [address] Aparna Chang MD [address] [place] [phone] 1, Pft Procedure Room 10/05/2025 2:00 PM EST Office Visit [facility] [address] [address] Aparna Chang MD [address] [place] [phone] documented as of this encounter Visit Diagnoses Not on filedocumented in this encounter Care Teams Hotel Reservationist Relationship Specialty Start Date End Date Jace Blake DO [address] [place] [address] PCP - General Family Medicine 08/01/14 documented as of this encounter
--- OUTSIDE RECORDS SUMMARY | 2025-03-31 13:00 | XMS_ITS | Encounter Summary ---
Author Organization [facility] Address [address] [place] [address] Care Team Providers Care Surface Lay Out Technician Name Role Phone Jace Blake MD Primary Care Provider Provider, Rachid GARCIA Unavailable Unavaila Andres Topete MD Unavailable [phone] Aki Ross MD Unavailable [phone] Ursula Boo MD Unavailable Rocio Youssef PA-C Unavailable [phone] Emeterio Valencia MD Unavailable Diana Coppola MD Unavailable Encounter Details Date Type Department Care Team (Late st Contact Info) Description 03/31/2024 Scanned Document [facility] [address] [place] [address] Tl Mancera, WALDEMAR 5 [facility] 2 [place] [address] Social History Tobacco Use Types [...] Description 05/04/2025 10:00 AM EDT Office Visit [facility] Heart & Vascular [place] [address] [phone] Aki Ross MD [address] [place] [address] 05/11/2025 1:40 PM EDT Office Visit [facility] Medical [facility] Dermatology [place] 35 [place] [address] Nico Bailey MD [address] [place] [address] documented as of this encounter Visit Diagnoses Not on filedocumented in this encounter Additional Health Concerns Infection Onset Date Last Indicated Resolved Time R/O Gastrointestinal Infection 03/22/2025 03/22/2025 03/23/2025 10:28 PM EDT documented as of this encounter Care Teams Surface Lay Out Technician Relationship Specialty Start Date End Date Jace Blake MD [address] [place] [address] PCP - General Psychiatry, General 05/04/17 Rachid Robles MD 04/27/17 Andres Lakhani MD [address] [place] [address] Ice Cream Freezer Assistant Cardiology 07/08/19 Aki Ross MD [address] [address] Primary Ice Cream Freezer Assistant Cardiovascular Disease 07/08/19 Ursula Boo MD [address] [address] Gastroenterology 06/07/20 Rocio Youssef PA-C [address] [place] [address] Physician Electronics Test Engineer Gastroenterology 06/07/20 Emeterio Valencia MD [address] [place] [address] Clinician Pulmonary Medicine 06/20/20 Diana Coppola MD [address] [place] [address] Internal Medicine 03/22/25 documented as of this encounter
--- OUTSIDE RECORDS SUMMARY | 2025-03-31 13:00 | XMS_ITS | Continuity of Care Document ---
Author Organization [facility] Address [address] [facility] [address] [place] [address] Phone Care Team Providers Care Shift Production Supervisor Name Role Phone Awais Alford MD Unavailable Unavailable Advance Directives Directive Yes / No Effective Date File Name No Information Encounters Encounter Description Practice Location Reason(s) For Visit Diagnoses Date Provider Providers Copied on Encounter [facility], [address] [place] [address] 200, [place], [place], [id number], [phone] [facility] Office No Information 3 Rocío Ernandez. [address] [facility] 200, [place], [place], [id number] . tel: [phone] Family History Family Member Type Diagnosis Age [...]
--- OUTSIDE RECORDS SUMMARY | 2025-03-31 13:00 | XMS_ITS | Encounter Summary ---
Author Organization [facility] Address [address] [place] [address] Care Team Providers Care Boot Repairer Name Role Phone HaydenJace Primary Care Provider [phone] Encounter Details Date Type Department Care Team (Late Contact Info) Description 06/06/2020 Scanned Document [facility] Health Information Management [address] [place] [address] External, Provider Social History Tobacco Use Types [...] Department Care Team (Late Contact Info) Description 06/07/2025 10:30 AM EDT Follow Up Neuromuscular Medicine at [address] [address] Silvestre Maldonado MD 800 [place] [phone] 07/19/2025 12:20 PM EDT Follow Up Congestive Heart Failure Program at 800 [facility] [address] [place] [address] Diana Coppola MD 800 [place] [address] 10/05/2025 12:30 PM EST Appointment PUL[facility]AT[facility] - [address] [phone] Aparna Chang MD [address] [place] [phone] [facility], Pft Walk 10/05/2025 1:00 PM EST Appointment P[facility] - [address] [address] Aparna Chang MD [address] [place] [phone] 1, Pft Procedure Room 10/05/2025 2:00 PM EST Office Visit [facility] [address] [address] Aparna Chang MD [address] [place] [phone] documented as of this encounter Procedures Procedure Name Priority Date/Time Associated Diagnosis Comments LAB SCAN Routine 06/06/2020 documented in this encounter Results * Lab Scan (06/06/2020) us Provider External LAB BLOOD ORDERABLES Final Res ult documented in this encounter Visit Diagnoses Not on filedocumented in this encounter Care Teams Boot Repairer Relationship Specialty Start Date End Date Jace Blake DO [address] [place] [address] PCP - General Family Medicine 08/01/14 documented as of this encounter
--- OUTSIDE RECORDS SUMMARY | 2025-03-31 13:00 | XMS_ITS | Encounter Summary ---
Author Organization [facility] Address [address] [place] [address] Care Team Providers Care Recreation Professor Name Role Phone HaydenJace Primary Care Provider [phone] Encounter Details Date Type Department Care Team (Late Contact Info) Description 05/18/2020 Scanned Document [facility] Health Information Management [address] [place] [address] External, Provider Social History Tobacco Use Types [...] EDT Follow Up Neuromuscular Medicine at [address] [address] Silvestre Maldonado MD 800 [place] [phone] 07/19/2025 12:20 PM EDT Follow Up Congestive Heart Failure Program at 800 [facility] [address] [place] [address] Diana Coppola MD 800 [place] [address] 10/05/2025 12:30 PM EST Appointment P[facility] - [address] [phone] Aparna Chang MD [address] [place] [phone] [facility], Pft Walk 10/05/2025 1:00 PM EST Appointment [facility] - [address] [address] Aparna Chang MD [address] [place] [phone] 1, Pft Procedure Room 10/05/2025 2:00 PM EST Office Visit [facility] [address] [address] Aparna Chang MD [address] [place] [phone] documented as of this encounter Procedures Procedure Name Priority Date/Time Associated Diagnosis Comments LAB SCAN Routine 05/18/2020 documented in this encounter Results * Lab Scan (05/18/2020) us Provider External LAB BLOOD ORDERABLES Final Res ult documented in this encounter Visit Diagnoses Not on filedocumented in this encounter Care Teams Recreation Professor Relationship Specialty Start Date End Date Jace Blake DO [address] [place] [address] PCP - General Family Medicine 08/01/14 documented as of this encounter
--- OUTSIDE RECORDS SUMMARY | 2025-03-31 13:00 | XMS_ITS | Encounter Summary ---
Author Organization [facility] Address [address] [place] [address] Care Team Providers Care Assembler And Tester Electronics Name Role Phone Jace Blake MD Primary Care Provider Provider, Rachid GARCIA Unavailable Unavaila Andres Topete MD Unavailable [phone] Aki Ross MD Unavailable [phone] Ursula Boo MD Unavailable Rocio Youssef PA-C Unavailable [phone] Emeterio Valencia MD Unavailable Diana Coppola MD Unavailable Encounter Details Date Type Department Care Team (Late st Contact Info) Description 04/01/2019 Scanned Document [facility] [address] [place] [address] Provider, External, [address] [place] [address] Social History Tobacco Use Types Packs/Day Years [...] [facility] [place] [address] [address] Aki Ross MD [address] [place] [address] 05/11/2025 1:40 PM EDT Office Visit [facility] Dermatology [place] 35 [place] [phone] Nico Bailey MD [address] [place] [address] documented as of this encounter Visit Diagnoses Not on filedocumented in this encounter Additional Health Concerns Infection Onset Date Last Indicated Resolved Time R/O Gastrointestinal Infection 03/22/2025 03/22/2025 03/23/2025 10:28 PM EDT documented as of this encounter Care Teams Assembler And Tester Electronics Relationship Specialty Start Date End Date Jace Blake MD [address] [place] [address] PCP - General Psychiatry, General 05/04/17 Rachid Robles MD 04/27/17 Andres Lakhani MD [address]82 [place] [address] Composition Worker Cardiology 07/08/19 Aki Ross MD [address] [place] [address] Primary Composition Worker Cardiovascular Disease 07/08/19 Ursula Boo MD [address] [address] Gastroenterology 06/07/20 Rocio Youssef PA-C [address] [address] Physician Skirt Panel Assembler Gastroenterology 06/07/20 [place] [address] [address] Clinician Pulmonary Medicine 06/20/20 Diana Coppola MD [address] [address] Internal Medicine 03/22/25 documented as of this encounter
--- OUTSIDE RECORDS SUMMARY | 2025-03-31 13:00 | XMS_ITS | Encounter Summary ---
Author Organization [facility] Address [address] [place] [address] Care Team Providers Care Bench Worker Apprentice Name Role Phone HaydenJace Primary Care Provider [phone] Encounter Details Date Type Department Care Team (Latest Contact Info) Description 08/20/2020 Transcribed Orders [facility] [address] [address] Aki Ross MD [address] [place] [phone] Chronic diastolic heart failure (HC Code) [...] EDT Follow Up Neuromuscular Medicine at [address] [phone] Silvestre Maldonado MD 800 [place] [address] 07/19/2025 12:20 PM EDT Follow Up Congestive Heart Failure Program at 800 [facility] [address] [address] Diana Coppola MD 800 [place] [address] 10/05/2025 12:30 PM EST Appointment PULMONARY FUNCTION LABORATORY - [address] [phone] Aparna Chang MD [address] [place] [phone] [facility], Pft Walk 10/05/2025 1:00 PM EST Appointment PULMON[facility]CTION LABORATORY - [address] [address] Aparna Chang MD [address] [place] [phone] 1, Pft Procedure Room 10/05/2025 2:00 PM EST Office Visit [facility] [address] [address] Aparna Chang MD [address] [place] [phone] documented as of this encounter Procedures Procedure Name Priority Date/Time Associated Diagnosis Comments POTASSIUM Routine 08/20/2020 3:45 PM EDT Chronic diastolic heart failure (HC Code) documented in this encounter Results * Potassium (08/20/2020 3:45 PM EDT) [facility] Potassium 4.2 3.5 - 5.1 mmol/L 08/20/2020 4:39 PM EDT [facility] Blood Venipuncture / Unknown 08/20/2020 3:45 PM EDT 08/20/2020 3:45 PM EDT us Aki Ross MD LAB BLOOD ORDERABLES Final Res ult Performing Organization Address City/State/[facility] [place] [place] [address], [facility] [phone] documented in this encounter Visit Diagnoses Diagnosis Chronic diastolic heart failure (HC Code)- Primary Chronic diastolic heart failure documented in this encounter Care Teams Bench Worker Apprentice Relationship Specialty Start Date End Date Jace Blake DO [address] [place] [address] PCP - General Family Medicine 08/01/14 documented as of this encounter
--- OUTSIDE RECORDS SUMMARY | 2025-03-31 13:00 | XMS_ITS | Encounter Summary ---
Author Organization [facility] Address [address] [place] [address] Care Team Providers Care Bakery Decorator Name Role Phone Jace Blake MD Primary Care Provider [phone] Provider, Conversion Unavailable Unavaila Andres Topete MD Unavailable [phone] Aki Ross MD Unavailable [phone] Ursula Boo MD Unavailable Rocio Youssef PA-C Unavailable Emeterio Valencia MD Unavailable Diana Coppola MD Unavailable Encounter Details Date Type Department Care Team (Late st Contact Info) Description 10/07/2024 Scanned Document [facility] Heart [facility] [place] [address] [place] [phone] Provider, Cardiology Social History Tobacco Use [...] 05/04/2025 10:00 AM EDT Office Visit [facility] [place] [address] [address] Aki Ross MD [address] [place] [address] 05/11/2025 1:40 PM EDT Office Visit [facility] Dermatology [place] 35 [place] [address] Nico Bailey MD [address] [place] [address] documented as of this encounter Visit Diagnoses Not on filedocumented in this encounter Additional Health Concerns Infection Onset Date Last Indicated Resolved Time R/O Gastrointestinal Infection 03/22/2025 03/22/2025 03/23/2025 10:28 PM EDT documented as of this encounter Care Teams Bakery Decorator Relationship Specialty Start Date End Date Jace Blake MD [address] [place] [address] PCP - General Psychiatry, General 05/04/17 ProviderRachid MD 04/27/17 Andres Lakhani MD [address] [place] [address] Tableau Architect Cardiology 07/08/19 Aki Ross MD [address] [place] [address] Primary Tableau Architect Cardiovascular Disease 07/08/19 Ursula Boo MD [address] [address] Gastroenterology 06/07/20 Rocio Youssef PA-C [address] [address] Physician Public Transportation Inspector Gastroenterology 06/07/20 Emeterio Valencia MD [address] [address] Clinician Pulmonary Medicine 06/20/20 Diana Coppola MD 800 [facility] 2nd [place] [address] Internal Medicine 03/22/25 documented as of this encounter
--- OUTSIDE RECORDS SUMMARY | 2025-03-31 13:00 | XMS_ITS | Encounter Summary ---
Author Organization [facility] Address [address] [place] [address] Care Team Providers Care Forge Operator Helper Name Role Phone Miguel Angel Blakey Primary Care Provider [phone] Encounter Details Date Type Department Care Team (Late st Contact Info) Description 10/17/2024 Scanned Document INTERFACE DEFAULT [address] [place] [address] System, Provider Not In Social History Tobacco [...] EDT Follow Up Neuromuscular Medicine at [address] [address] Silvestre Maldonado MD 800 [facility] [place] [address] 07/19/2025 12:20 PM EDT Follow Up Congestive Heart Failure Program at 800 [facility] [address] [place] [address] Diana Coppola MD 800 [facility] [place] [phone] 10/05/2025 12:30 PM EST Appointment PULMONARY FUNCTION LABORATORY - [address] [address] Aparna Chang MD [address] [place] [phone] [facility] 10/05/2025 1:00 PM EST Appointment PULMONARY FUNCTION LABORATORY - [address] [address] Aparna Chang MD [address] [place] [phone] 1, Pft Procedure Room 10/05/2025 2:00 PM EST Office Visit [facility] [address] [phone] Aparna Chang MD [address] [place] [phone] documented as of this encounter Procedures [...] documented as of this encounter Care Teams Forge Operator Helper Relationship Specialty Start Date End Date Jace Blake DO [address] [place] [address] PCP - General Family Medicine 08/01/14 documented as of this encounter
--- OUTSIDE RECORDS SUMMARY | 2025-03-31 13:00 | XMS_ITS | Encounter Summary ---
Author Organization [facility] Address [address] [place] [address] Care Team Providers Care Farm Specialist Name Role Phone Jace Blake MD Primary Care Provider Provider, Rachid GARCIA Unavailable Unavaila Andrse Topete MD Unavailable [phone] Aki Ross MD Unavailable [phone] Ursula Boo MD Unavailable Rocio Youssef PA-C Unavailable Emeterio Valencia MD Unavailable Diana Coppola MD Unavailable Encounter Details Date Type Department Care Team (Late st Contact Info) Description 04/01/2019 Scanned Document [facility] [place] [address] [place] [address] Provider, External, [address] [place] [address] Social History Tobacco Use Types Packs/Day Years [...] 10:00 AM EDT Office Visit [facility] [place] [address] [phone] Aki Ross MD [address] [place] [address] 05/11/2025 1:40 PM EDT Office Visit [facility] [place] [address] [place] [phone] Nico Bailey MD [address] [place] [address] documented as of this encounter Visit Diagnoses Not on filedocumented in this encounter Additional Health Concerns Infection Onset Date Last Indicated Resolved Time R/O Gastrointestinal Infection 03/22/2025 03/22/2025 03/23/2025 10:28 PM EDT documented as of this encounter Care Teams Farm Specialist Relationship Specialty Start Date End Date Jace Blake MD [address] [place] [address] PCP - General Psychiatry, General 05/04/17 Rachid Robles MD 04/27/17 Andres Lakhani MD [address] [place] [address] Lens Cleaner Cardiology 07/08/19 Aki Ross MD [address] [place] [address] Primary Lens Cleaner Cardiovascular Disease 07/08/19 Ursula Boo MD [address] [address] Gastroenterology 06/07/20 Rocio Youssef PA-C [address] [address] Physician Activity Therapist Gastroenterology 06/07/20 [place] [address] [address] Clinician Pulmonary Medicine 06/20/20 Diana Coppola MD [address] [address] Internal Medicine 03/22/25 documented as of this encounter
--- OUTSIDE RECORDS SUMMARY | 2025-03-31 13:00 | XMS_ITS | Encounter Summary ---
Author Organization [facility] Address [address] [place] [phone] Care Team Providers Care Product Management Manager Name Role Phone Jace Blake DO Primary Care Provider [phone] Reason for Visit * Reason Comments Medication Refill Encounter Details Date Type Department Care Team (Late st Contact Info) Description 09/27/2023 Refill [facility] at [address] [place] [address] Pao Steele APRN [address] [phone] Medication Refill Social History Tobacco Use Types [...] AM EDT Follow Up Neuromuscular Medicine at [address] [place] [address] [address] [facility] [place] [address] Silvestre Maldonado MD [address] [place] [phone] 07/19/2025 12:20 PM EDT Follow Up Congestive Heart Failure Program at [address] [place] [phone] Diana Coppola MD [address] [place] [phone] 10/05/2025 12:30 PM EST Appointment [facility] - [address] [address] Aparna Chang MD [address] [place] [phone] [facility], Pft Walk 10/05/2025 1:00 PM EST Appointment P[facility] - [address] [address] Aparna Chang MD [address] [place] [phone] 1, Pft Procedure Room 10/05/2025 2:00 PM EST Office Visit [facility] [address] [phone] Aparna Chang MD [address] [place] [phone] documented as of this encounter Visit Diagnoses Diagnosis Chronic systolic heart failure (HC Code) Chronic systolic heart failure documented in this encounter Additional Health Concerns Assessment Noted Time PHQ-9 Depression Total Score: 0 07/01/20 23 10:25 AM EDT documented as of this encounter Care Teams Product Management Manager Relationship Specialty Start Date End Date Jace Blake DO [address] [place] [address] PCP - General Family Medicine 08/01/14 documented as of this encounter
--- OUTSIDE RECORDS SUMMARY | 2025-03-31 13:00 | XMS_ITS | Encounter Summary ---
Author Organization [facility] Address [address] [place] [phone] Care Team Providers Care Emissions Engineer Name Role Phone Blake, Gary Primary Care Provider [phone] Encounter Details Date Type Department Care Team (Late st Contact Info) Description 08/16/2020 Scanned Document [facility] Health Information Management [address] [place] [address] External, Provider Social History Tobacco Use Types [...] Follow Up Neuromuscular Medicine at [address] [address] Silvestre Maldonado MD [address] [place] [phone] 07/19/2025 12:20 PM EDT Follow Up Congestive Heart Failure Program at 800 [facility] [address] [place] [address] Diana Coppola MD [address] [place] [phone] 10/05/2025 12:30 PM EST Appointment [facility] - [address] [address] Aparna Chang MD [address] [place] [phone] [place], Pft Walk 10/05/2025 1:00 PM EST Appointment [facility] - [address] [address] Aparna Chang MD [address] [place] [phone] 1, Pft Procedure Room 10/05/2025 2:00 PM EST Office Visit [facility] [address] [phone] Aparna Chang MD [address] [place] [phone] documented as of this encounter Procedures Procedure Name Priority Date/Time Associated Diagnosis Comments LAB SCAN Routine 08/16/2020 documented in this encounter Results * Lab Scan (08/16/2020) us Provider External LAB BLOOD ORDERABLES Final Res ult documented in this encounter Visit Diagnoses Not on filedocumented in this encounter Care Teams Emissions Engineer Relationship Specialty Start Date End Date Jace Blake DO [address] [place] [address] PCP - General Family Medicine 08/01/14 documented as of this encounter
--- OUTSIDE RECORDS SUMMARY | 2025-03-31 13:00 | XMS_ITS | Encounter Summary ---
Author Organization [facility] Address [address] [place] [address] Care Team Providers Care Investigative Reporter Name Role Phone Jace Blake MD Primary Care Provider [phone] Provider, Rachid GARCIA Unavailable Unavaila Andres Topete MD Unavailable [phone] Aki Ross MD Unavailable [phone] Ursula Boo MD Unavailable Rocio Youssef PA-C Unavailable Emeterio Valencia MD Unavailable Diana Coppola MD Unavailable Encounter Details Date Type Department Care Team (Late st Contact Info) Description 04/01/2019 Scanned Document [facility] [place] [address] [place] [address] Provider, External, [address] [place] [address] Social History Tobacco Use Types Packs/Day Years [...] 10:00 AM EDT Office Visit [facility] [place] [address] [phone] Aki Ross MD [address] [place] [address] 05/11/2025 1:40 PM EDT Office Visit [facility] D[facility]at[facility] [place] [address] [place] [phone] Nico Bailey MD [address] [place] [address] documented as of this encounter Visit Diagnoses Not on filedocumented in this encounter Additional Health Concerns Infection Onset Date Last Indicated Resolved Time R/O Gastrointestinal Infection 03/22/2025 03/22/2025 03/23/2025 10:28 PM EDT documented as of this encounter Care Teams Investigative Reporter Relationship Specialty Start Date End Date Jace Blake MD [address] [place] [address] PCP - General Psychiatry, General 05/04/17 Rachid Robles MD 04/27/17 Andres Lakhani MD [address] [place] [address] Carbon Paper Coating Machine Setter Cardiology 07/08/19 Aki Ross MD [address] [place] [address] Primary Carbon Paper Coating Machine Setter Cardiovascular Disease 07/08/19 Ursula Boo MD [address] [address] Gastroenterology 06/07/20 Rocio Youssef PA-C [address] [address] Physician Forms Designer Gastroenterology 06/07/20 [place] [address] [address] Clinician Pulmonary Medicine 06/20/20 Diana Coppola MD [address] [address] Internal Medicine 03/22/25 documented as of this encounter
--- OUTSIDE RECORDS SUMMARY | 2025-03-31 13:00 | XMS_ITS | Data Portability ---
Author Organization [facility] Address [address] [facility] [address] [place] [address] Care Team Providers Care Rehab Rn Name Role Phone ROSIE MASSEY Primary Care Provider [facility] General Surgeon NELY BENTLEY Technologist Infectious Disease TEE URBANO Neurologist TAMANNA BELTRAN Program Research Specialist MAHENDRA RODRÍGUEZ Mental Health Program Manager Assessment Encounter Date Assessment Date Assessment LastModified [...] Lab HbA1c (hemoglob in A1c), blood 2019 [facility] (Outpatient Lab), [address] [place], [address], 0 11:22:16 CBC w/ auto diff 2019 020 [facility] (Outpatient Lab), [address] [place], [address], 0 11:22:15 iron + TIBC + ferritin, serum 2019 [facility] (Outpatient Lab), [address] [place], [address], 0 12:06:52 vitamin B12, serum 2019 [facility] (Outpatient Lab), [address] [place], [address], 0 11:22:16 retic count, blood 2019 [facility] (Outpatient Lab), [address] [facility], [place], [address], 0 11:22:16 vitamin B12 + folate, serum or blood 2019 [facility] (Outpatient Lab), [address] [place], [address], 0 11:22:17 spep + immunoglo bulins, serum 2019 [facility] (Outpatient Lab), [address] [place], [address], 0 11:22:16 lipid panel, serum 2019 [facility] (Outpatient Lab), [address] [place], [address], 0 11:22:17 TSH, serum or plasma 2019 [facility] (Outpatient Lab), [address] [place], [address], 0 11:22:16 NICANOR (antinucl ear antibodie s) screen, serum 2019 [facility] (Outpatient Lab), [address] [place], [address], 0 13:04:58 C-reactiv e protein, quantitat tavares, serum or plasma 2019 [facility] (Outpatient Lab), [address] [place], [address], 0 11:22:16 dsDNA Ab, serum 2019 [facility] (Outpatient Lab), [address] [place], [address], 0 04:08:04 erythrocy te sedimenta tion rate by westergre n method 2019 [facility] (Outpatient Lab), [address] [place], [address], 0 11:22:16 C3 + C4 (compleme nt), serum 2019 [facility] (Outpatient Lab), [address] [place], [address], 0 11:22:16 rf (rheumato id factor) + anti-ccp abs, serum 2019 [facility] (Outpatient Lab), [address] [place], [address], 0 11:22:16 sjogren antibody panel, serum 2019 [facility] (Outpatient Lab), [address] [place], [address], 0 13:04:58 urinalysi s, complete 2019 [facility] (Outpatient Lab), [address] [place], [address], 0 11:22:16 gamma-glu tamyl transfera se (ggt), serum 2019 [facility] (Outpatient Lab), [address] [place], [address], 0 11:22:15 CMP, serum or plasma 2019 [facility] (Outpatient Lab), [address] [facility], [place], [address], 0 11:22:16 lipase, serum or plasma 2019 [facility] (Outpatient Lab), [address] [facility], [place], [address], 0 11:22:17 afp (alpha-fe toprotein ) tumor marker, serum or plasma 2019 [facility] (Outpatient Lab), [address] [facility], [place], [address], 0 11:22:17 ferritin, serum or plasma 2019 020 [facility] (Outpatient Lab), [address] [facility], [place], [address], 0 11:22:15 amylase, serum or plasma 2019 020 [facility] (Outpatient Lab), [address] [facility], [place], [address], 0 11:22:16 hepatitis panel (A+B+C), acute, serum 2019 [facility] (Outpatient Lab), [address] [facility], [place], [address], 0 11:22:16 Referral gastroent erologist referral 2019 ASHLEY Sahu MD ([facility]), [facility] [address], [place], [address], 0 13:02:[address] referral 2019 ASHLEY Urbano MD ([facility]), [address] [facility], [place], [address], 13:55:31 Procedures None recorded. Surgeries None recorded. Imaging US, duplex, venous, upper extremity , unilatera l - KORIN , please, hx of blood clots ( autoimmun e disorder) 2020 [facility], [address] [facility], [place], [address], 1 09:40:08 Medication Orders ondansetr on HCl 4 mg tablet 2020 mlnaomie [id number], [address], [place], [address], 1 23:10:34 gabapenti n 100 mg capsule [address] [facility], [facility], [place], [address], 0 11:00:57 clonazepa m 0.5 mg tablet 2019 [facility]FACE [facility], [address] [place] [address] [address],, [place], [address], 0 09:25:27 gabapenti n 800 mg tablet [address] [facility], [facility], [place], [address], 0 09:23:57 Patient TargetsNo targets recorded. Patient Instructions Encounter Date Encounter Id Patient Instructions Last Modified By Organization Details Last Modified Time 12/11/2020 [id number] Discussed and explained advance directives such as standard forms to the {{patient* caregi karla patient and caregiver}}. Face to face discussion lasted for a duration of 10 minutes. norma Not available 12/30/2020 10:08:10 02/15/2021 [id number] Extensive number of diagnosis or management options [...] identified. norma Not available 02/23/2021 09:48:57 09/03/2021 [id number] The following topics were discussed by me during the visit: - expected course of the disease - lab results and schedule future lab studies reviewed with patient -orders and follow up as documented in [place] -call back if symptoms worsen or fail to improve or any new symptoms occur [email or web address] Not available 09/03/2021 23:26:29 Reason for Referral Neurologist Referral for Elba ropathy Referring Physician: Jeovanny Ramírez, Internal Medicine, Encounter Date: 10/25/2020 Remote Sensing Engineer Referral for Liver function tests outside reference [...] ogist concer jorge this exam, please call [phone] . SIN MCNAIR MD DICTAT ING PHYSIC JOSHUA APPROV ING PHYSIC JOSHUAHannah MCNAIR MD 2019 01:46 PM 0 01:41 PM Adan arias Copy to: JEOVANNY MONTGOMERY MD [facility] Scheduling Dept (Imaging) [facility] [place], [address], 12/11/2020 17:03:17 11/26/19 21 11/26/2020 US, abdom [...] your referr al. If you are a [facility] er and would like to speak with a Radiol ogist concer jorge this exam, please call . MARIA ELENA MARCUS ND, MD DICTAT ING PHYSIC JOSHUA APPROV ING PHYSIC JOSHUA MARIA ELENA MARCUS ND, MD 2020 09:27 AM MM/ 09:27 AM Courte sy Copy to: JEOVANNY MONTGOMERY MD [facility]iology [facility] Center Scheduling Dept (Imaging) [address] [place], [address], 12/11/2020 17:03:17 02/21/20 21 02/15/2021 US, he [...] (DVT). Thank you for trusti Radiol ogy [facility] with your referr al. If you are a [facility] er and like to speak with a Radiol ogist concer jorge this exam, please call . KEATON Eason MD DICTAT ING PHYSIC JOSHUA APPROV ING PHYSIC JOSHUA GALINDO MD 2020 01:48 PM CHG/ 21 04:28 PM Courte sy Copy to: [email or web address] [facility] Scheduling Dept (Imaging) [address] [facility], [place], [address], 02/21/2021 14:33:19 Result Notes None recorded. Problems Name Problem SNOMED Code Status Onset Date Resolution Date Notes Provider Name and Address Organization Details Recorded Time Essential hypertension 54550424 Active 2018 Jeovanny Ramírez MD [address] [facility], [place], [address], [facility] 9 15:44:10 Congestive heart failure 74896847 Active 2018 35% EF Jeovanny Ramírez MD [address] [facility] [address] [facility] [address], [place], [address], [facility] 0 10:47:34 Osteoarthritis 853705943 Active 2018 Jeovanny Ramírez MD [address] [facility], [place], [address], [facility] [place] 9 15:44:46 History of depression 327602762 Active 2018 Jeovanny Ramírez MD [address] [facility], [place], [address], [facility] 9 15:48:55 Anemia 262145175 Active 2019 Jeovanny Ramírez MD [address] [facility], [place], [address], [facility] 0 10:47:03 Cardiomyopathy 57126591 Active 2019 Jeovanny Ramírez MD [address] [facility], [place], [address], [facility] 0 10:47:12 Pulmonary hypertension 29877800 Active 2019 Jeovanny Ramírez MD [address] [facility], [place], [address], [facility] 0 10:47:21 Multiple nodules of lung 716393548 Active 2019 Jeovanny Ramírez MD [address] [facility], [place], [address], [facility] 0 10:52:24 Iron deficiency 16837784 Active 2017 Jeovanny Ramírez MD [address] [facility], [place], [address], [facility] 8 13:29:34 Anxiety 34624439 Active 2017 Jeovanny Ramírez MD [address] [facility], [place], [address], [facility] 8 13:29:44 Hyperlipidemia 18784031 Active 2017 MD Dirk Tian [facility], [place], [address], [facility] 8 13:30:09 Gastroesophage al reflux disease 154443337 Active 2017 Jeovanny Ramírez MD [address] [facility], [place], [address], [facility] 8 13:30:17 Insomnia 720938171 Active 2017 Jeovanny Ramríez MD [address] [facility], [place], [address], [facility] 8 13:30:45 Neuropathy 410270416 Active 2017 Jeovanny Ramírez MD [address] [facility], [place], [address], [facility] 8 13:30:54 Atrial fibrillation 10464269 Active 2017 MD Dirk Tian [facility], [place], [address], [facility] 8 13:39:15 Cardiac pacemaker in situ 799947988 Active 2017 MD Dirk Tian [facility], [place], [address], [facility] 8 13:39:28 Single coronary vessel disease 583873100 Active 2017 Jeovanny Ramírez MD [address] [facility], [place], [address], [facility] 8 13:39:46 Problem Notes None recorded. Procedures Surgical History Date Name Laterality Status Provider Name and Address Organization Details Recorded Time 018 colonoscopy completed MD Dirk Tian [place] [facility], [place], [address], [facility] 12/06/2019 14:23:08 Back Surgery completed MD Dirk Tian [place] [facility], [place], [address], [facility] 02/06/2019 15:45:52 cardiac catheterization completed MD Dirk Tian [place] [facility], [place], [address], [facility] 02/06/2019 15:46:05 Appendectomy completed MD Dirk Tian [facility], [place], [address], [facility] 02/06/2019 15:46:13 hysterectomy completed MD Dirk Tian [place] [facility], [place], [address], [facility] 02/06/2019 15:46:26 cardioversion completed MD Dirk Tian [place] [facility], [place], [address], [facility] 02/06/2019 15:46:40 cardiac pacemaker procedure completed MD Dirk iTan [place] [address], [place], [address], [facility] 02/06/2019 15:46:53 arthroplasty of knee completed MD Dirk Tian [place] [facility], [place], [address], [facility] 02/06/2019 15:47:05 parathyroidectomy completed Lulu Alvarez [facility] 10/25/2020 10:24:23 Imaging Results Imaging Date Name Status LastModified by Organiz ation Details LastModified Time 11/06/2020 CT, orbit / sella / posterior fossa / ear, w/o contrast completed [facility] Scheduling Dept (Imaging) [address] [place] [address], [address], 12/11/2020 17:03:17 11/26/2020 US, abdomen, limited completed [facility] Scheduling Dept (Imaging) [address] [place] [address], [address], 12/11/2020 17:03:17 02/15/2021 US, duplex, venous, extremity, limited completed [address] [facility] Scheduling Dept (Imaging) [address] [place] [address], [address], 02/21/2021 14:33:19 Procedure Notes None recorded. Medical [...] /min 98 % 98 % 32.6 kg/m2 773531. 47 g 106 mm[Hg] 68 mm[Hg] [facility] 0 10:26:22 Date Recorded Body height Body temperature Respiratory rate Heart rate Oxygen saturation Oxygen saturation in Arterial blood by Pulse oximetry Systolic blood pressure Diastolic blood pressure Provider Name and Address Organization Details Last Updated DateTime 1 177.8 cm 97.8 [degF] 16 /min 68 /min 99 % 99 % 110 mm[Hg] 70 mm[Hg] [facility] 1 15:05:26 Date Recorded Body height Respiratory rate Body temperature Body mass index (BMI) Body weight Oxygen saturation Oxygen saturation in Arterial blood by Pulse oximetry Inhaled oxygen flow rate Heart rate Systolic blood pressure Diastolic blood pressure Provider Name and Address Organization Details Last Updated DateTime 1 177.8 cm 20 /min 98.4 [degF] 32.4 kg/m2 470498. 88 g 99 % 99 % 2 L/min 88 /min 116 mm[Hg] 70 mm[Hg] Lulu Benningho [facility] 1 08:58:53 Date Recorded Body height Respiratory rate Body temperature Heart rate Systolic blood pressure Diastolic blood pressure Provider Name and Address Organization Details Last Updated DateTime 1 177.8 cm 18 /min 98.4 [degF] 120 /min 166 mm[Hg] 84 mm[Hg] Lulu Quintana [facility] 1 14:33:56 Social History Question Answer Notes LastModified by Organizat ion Details LastModified Time Tobacco Smoking Status Former Smoker Not Available [employer] 09/25/2020 03:28:20 What Is Your Level Of Alcohol Consumption? Occasional Information not available 10/25/2020 Are You Blind Or Do You Have Difficulty Seeing? No [id number] Information not available 09/25/2020 What Is Your Level Of Caffeine Consumption? Moderate Information not available 10/25/2020 How Much Tobacco Do You Chew? None [id number] Information not available 09/25/2020 If Patient Spent Time In [facility] - Does The Patient Live In [facility]? No Information not available 12/11/2020 In The 14 Days Before Symptom Onset, Did The Patient Spend Time In [facility]? No Information not available 10/25/2020 Have You Been To An Area Known To Be High Risk For COVID-19? No Information not available 10/25/2020 Are You Deaf Or Do You Have Serious Difficulty Hearing? No [id number] Information not available 09/25/2020 Do You Or Have You Ever Used E-cigarettes Or Vape? Never Used Electronic Cigarettes [id number] Information not available 09/25/2020 How Many Days Of Moderate To Strenuous Exercise, Like A Brisk Walk, Did You Do In The Last 7 Days? 1 [id number] Information not available 09/25/2020 On Those Days That You Engage In Moderate To Strenuous Exercise, How Many Minutes, On Average, Do You Exercise? 1 [id number] Information not available 09/25/2020 How Hard Is It For You To Pay For The Very Basics Like Food, Housing, Medical Care, And Heating? [id number] [employer] Information not available 12/06/2019 Live Alone Or With Others? With Others [facility] Information not available 12/06/2019 Marital Status [facility] In[facility] t[facility] not available 12/06/2019 What Was The Date Of Your Most Recent Tobacco Screening? 10/25/2020 [facility] Information not available 10/25/2020 Do You Or Have You Ever Used Smokeless Tobacco? Never Used Smokeless Tobacco [id number] Information not available 09/25/2020 Do You Feel Stressed (tense, Restless, Nervous, Or Anxious, Or Unable To Sleep At Night)? [id number] Information not available 09/25/2020 Sex: Unknown Functional Status Question Answer Note LastModified by Organizat ion Details LastModified Time Do you have difficulty walking or climbing stairs? No [id number] Information not available 09/25/2020 Do you have transportation difficulties? Yes [place] Information not available 09/03/2021 Are you able to walk? YESWOREST [id number] Information not available 09/25/2020 Do you have difficulty doing errands alone? No [id number] Information not available 09/25/2020 Are you able to care for yourself? Yes [place] Information not available 09/03/2021 Do you have difficulty dressing or bathing? No [id number] Information not available 09/25/2020 Mental Status Question Answer Note LastModified by Organization D etails LastModified Time Do you have difficulty concentrating, remembering or making decisions? No [id number] Information no t available 09/25/2020 Family History [...] 50 mcg/0.25mL dose 1 completed [facility] 02/15/2021 08:54:20 COVID-19, mRNA, LNP-S, PF, 100 mcg/0.5mL dose or 50 mcg/0.25mL dose 1 completed Lulu Alvarez [facility] 02/15/2021 08:54:20 Influenza, split virus, quadrivalent, preservative 9 completed Jeovanny Ramírez MD [address] [place] [address], [address], [facility] 09/27/2019 13:43:08 Pneumococcal conjugate PCV [address] [facility] 12/11/2020 15:04:27 Influenza, split virus, quadrivalent, preservative [address] [facility] 12/11/2020 15:05:02 Past Encounters Encounter ID Performer Location Encounter Start Date Encounter Closed Date Diagnosis/Indication Diagnosis SNOMED-CT Code Diagnosis ICD10 Code Diagnosis Note [id number] Jeovanny Ramírez MD Main Office [address] [place] [address],[address] [place] [address] 10/06/2018 12:58:14 10/06/2018 13:57:46 Hyperlipidemia 41981948 E78.2 check LP, CMP Anxiety 30933634 F41.9 Fatigue 29177135 R53.83 Mixed hyperlipidemia 267 470389 E78.2 Iron defic iency anemia 95322213 D50.9 Hyperglycemia 16213652 R 73.9 Vitamin D deficiency 347 88412 E55.9 Cobalamin deficiency 190 661409 E53.8 Increased frequency of urination 717659748 R35.0 Dog bite of hand 2987262 06 S61.459D Essential hypertension 11552818 I10 [id number] Jeovanny Ramírez MD Main Office [address] [facility] [place] [address] 12/20/2018 13:23:11 12/20/2018 16:31:54 Neuropathy 351687701 G62.9 Anti-nucle ar factor detected 610803220 R76.8 [id number] Jeovanny Ramírez MD Main Office [address] [place] [address] [address] [place] [address] 09/27/2019 12:51:33 09/27/2019 14:01:39 Screening mammography 96753317 Z12.31 Hyperparathyroidism 6699 9008 E21.3 Essential hypertension 31910880 I10 [id number] Jeovanny Ramírez MD Main Office [address] [place] [address] [address] [place] [address] 12/06/2019 13:47:22 12/06/2019 15:01:11 Adult health examination 867105978 Z00.00 Screening for cardiovascular system disease 284543364 Z13.6 discussed exercise, diet, control of lipids and BP. She has hx of CHF and cardiac pacemaker- stable at present Depression screening 171 711379 Z13.31 mild Hyperparathyroidism 6699 9008 E21.3 Abnormal urine 690141888 R82.90 Hyperlipidemia 38243867 E78.2 check LP, CMP Impaired g lucose tolerance 6848527 R73.09 Fatigue 76841960 R53.83 [id number] Jeovanny Ramírez MD Main Office [address] [place] [address] [address] [place] [address] 03/16/2020 08:43:45 03/16/2020 12:22:04 Neuropathy 707374719 G62.9 Essential hypertension 59286597 I10 stable, continue the same History of parathyroidectomy 0940627237 43888 Z90.89 Anxiety 60148292 F41.9 [id number] Jeovanny Ramírez MD Main Office [address] [place] [address] [address] [place] [address] 10/25/2020 10:07:27 10/25/2020 11:22:47 Neuropathy 029293418 G62.9 Liver func tion tests outside reference range 253651849 R94.5 Anemia 682252574 D64.9 Anti-nucle ar factor detected 310872633 R76.8 Hyperlipidemia 07428978 E78.2 check LP, CMP Fatigue 26495720 R53.83 Increased frequency of urination 887293875 R35.0 Impaired g lucose tolerance 3822185 R73.09 [id number] Jeovanny Ramírez MD Main Office [address] [place] [address],[address] [place] [address] 12/11/2020 14:28:52 12/11/2020 15:37:54 Adult health examination 277600785 Z00.00 Screening mammography 24 547892 Z12.31 Depression screening 171 103836 Z13.31 mild, treated Essential hypertension 60527050 I10 stable, continue the same [id number] Jeovanny Raímrez MD Main Office [address] [place] [address],[address] [place] [address] 02/15/2021 08:24:15 02/15/2021 09:34:20 Swelling of upper limb 061304008 R22.31 r/o DVT Essential hypertension 36990963 I10 stable, continue the same [id number] Jeovanny Ramírez MD Main Office [address] [place] [address],[facility] [address] [place] [address] 09/03/2021 14:13:07 09/03/2021 23:27:00 Nausea 023954768 R11.0 Abdominal pain 05935339 R10.9 r/o diverticul itisto ER Constipation 30691794 K5 9.00 Health Concerns Section Related Observation LastModified by Organization Detai ls LastModified Time None Recorded Concern Status LastModified by Organization Details LastModified Time None Recorded Advance Directives Directive None Recorded Payers Encounter Date Sequence Insurance Name Policy Number Policy Fields Covered Member ID Fields Member ID Guarantor Name 03/16/2020 2 [place] [id number] Kimberly Lr Bulat [id number] Kimberly Bulat 03/16/2020 1 [place] Kimberly Lr Bulat [id number] Kimberly Bulat 10/25/2020 2 [place] [id number] Kimberly Lr Bulat [id number] Kimberly Bulat 10/25/2020 1 [place] Kimberly Lr Bulat [id number] 1 Kimberly Bulat 12/11/2020 2 [facility] [facility] [id number] Kimberly Lr Bulat [id number] Kimberly Bulat 12/11/2020 1 [place] Kimberly Chaparroat [id number] 1 Kimberly Bulat 02/15/2021 2 [facility] [facility] [id number] Kimberly Chaparroat [id number] Kimberly Bulat 02/15/2021 1 [place] Kimberly Chaparroat [id number] 1 Kimberly Bulat 09/03/2021 2 [facility] [facility] [id number] Kimberly Lr Bulat [id number] Kimberly Bulat 09/03/2021 1 [place] Kimberly Chaparroat [id number] 1 Kimberly Buldeisy Notes Date Note Type [...] all other [facility]. This includes examinations, diagnostic testing, treatment and other health care services deemed medically necessary in the Providers? professional judgment. Jeovanny Ramírez MD [address] [place], [address], [facility] 03/16/2020 12:21:43 0 text/html HyperlipidemiaReported bypatient.Type of hyperlipidemia:combined Control:not at goal Compliance:noncompliant with diet;does not exercise Complications:coronary artery disease;cardiovascular disease Risk Factors:hypertensionHyperte nsion IM/FMReported bypatient.Quality:here for check-up Severity:moderate Onset/Timing:gradual onset Context:exertion Alleviating Factors:relieved with rest; medication Self Care:under emotional stress;not watching diet;sedentaryNotes:ABNORMA L LFTs. Pt [place], its unclear what the reason for the elevated LFTs is. She also saw leather skinner for pulmonary HTN, lung nodules. She is on Oxygen now. Has spanish linguist for follow up a fib. She was told she has cardiomyopathy, pulmonary HTN Saw a dam attendant - no dx of autoimmune disease was made. 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 Will order more tests ANEMIA Had GI work up, which discovered polyps in the intestine. Very few records are avaiable for [place] Jeovanny Ramírez MD [address] [place], [address], [facility] 10/25/2020 22:52:20 1 text/html Medicare Annual Wellness [...] the past year Jeovanny Ramírez MD [address] [place], [address] 12/30/2020 10:08:18 text/html EdemaReported bypatient.Location:RLE Quality:legs do [...] and start Augmentin Jeovanny Ramírez MD [address] [place], [address] 02/23/2021 09:49:04 text/html Abdominal PainReported bypatient.Location:LLQ; epigastric Quality:bloating;cramping;a shantal;burning Severity:moderate Duration:constant Onset/Timing:worse Aggravating Factors:movement; eating Alleviating Factors:nothing gives relief Associated Symptoms:no fever; no chills;nausea;vomiting;cons tipation Previous Tests, Treatment and/or Diagnostic Procedures:noneNotes:Was seen in ER 2 days ago Jeovanny Ramírez MD [address] [facility], [place], [address], [facility] [place] 09/03/2021 23:26:37 OBGyn Episode No OBEpisode recorded.
--- OUTSIDE RECORDS SUMMARY | 2025-03-31 13:00 | XMS_ITS | Encounter Summary ---
Author Organization [facility] and [facility] Address [address] [place] [id number] Care Team Providers Care Fitness Worker Name Role Phone Jace Blake DO Primary Care Provider [phone] Encounter Details Date Type Department Care Team (Late st Contact Info) Description 09/14/2023 Scanned Document [facility]uscular Medicine at [address] [facility] [address] [facility] [place], [place] [id number] Silvestre Maldonado MD [address] [place] [phone] Social History Tobacco Use Types Packs/Day Years [...] EDT Follow Up Neuromuscular Medicine at [address] [place] [address] [address] [facility] [place] [address] Silvestre Maldonado MD [address] [place] [phone] 07/19/2025 12:20 PM EDT Follow Up Congestive Heart Failure Program at [address] [place] [address] [address] [facility] 2nd [place] [address] Diana Coppola MD [address] [place] [address], [place] [phone] 10/05/2025 12:30 PM EST Appointment [facility] - [address] [address] Aparna Chang MD [address] [place] [phone] [facility], [facility] 10/05/2025 1:00 PM EST Appointment [facility] - [address] [address] Aparna Chang MD [address] [place] [phone] 1, Pft Procedure Room 10/05/2025 2:00 PM EST Office Visit [facility] [address] [phone] Aparna Chang MD [address] [place] [phone] documented as of this encounter Visit Diagnoses Not on filedocumented in this encounter Additional Health Concerns Assessment Noted Time PHQ-9 Depression Total Score: 0 07/01/20 23 10:25 AM EDT documented as of this encounter Care Teams Fitness Worker Relationship Specialty Start Date End Date Jace Blake DO [address] [place] [phone] PCP - General Family Medicine 08/01/14 documented as of this encounter
--- OUTSIDE RECORDS SUMMARY | 2025-03-31 13:00 | XMS_ITS | Encounter Summary ---
Author Organization [facility] and [facility] Address [address] [place] [phone] Care Team Providers Care Production Shift Supervisor Name Role Phone Jace Blake DO Primary Care Provider [phone] Reason for Visit * Reason Onset Date Comments Medication Refill 01/04/2024 Encounter Details Date Type Department Care Team (Late st Contact Info) Description 01/04/2024 Telephone Congestive Heart Failure Program at [address] [place], [place] [id number] Diana Coppola MD [address] [place] [phone] Medication Refill Social History Tobacco Use Types [...] mg was requested and sent to [facility] [place] to refill. Thanks Cheri Mensha documented in this encounter Plan of Treatment Upcoming Encounters Date Type Department Care Team (Late st Contact Info) Description 06/07/2025 10:30 AM EDT Follow Up Neuromuscular Medicine at [address] [place] [address] [place] [address] Silvestre Maldonado MD [address] [place] [phone] 07/19/2025 12:20 PM EDT Follow Up Congestive Heart Failure Program at [address] [place] [address] [address] [place] [address] Diana Coppola MD [address] [place] [phone] 10/05/2025 12:30 PM EST Appointment [facility] - [address] [address] Aparna Chang MD [address] [place] [phone] [facility], Pft Walk 10/05/2025 1:00 PM EST Appointment [facility] - [address] [address] Aparna Chang MD [address] [place] [phone] 1, Pft Procedure Room 10/05/2025 2:00 PM EST Office Visit [facility] [address] [address] Aparna Chang MD [address] [place] [phone] documented as of this encounter Visit Diagnoses Not on filedocumented in this encounter Additional Health Concerns Assessment Noted Time PHQ-9 Depression Total Score: 0 12/31/19 24 11:03 AM EST documented as of this encounter Care Teams Production Shift Supervisor Relationship Specialty Start Date End Date Jace Blake DO [address] [place] [phone] PCP - General Family Medicine 08/01/14 documented as of this encounter
--- OUTSIDE RECORDS SUMMARY | 2025-03-31 13:00 | XMS_ITS | Clinical Summary ---
Author Organization [facility] Address [address] [place] [address] Care Team Providers Care Redeye Gunner Name Role Phone Jace Blake MD Primary Care Provider Provider, Conversion Unavailable Unavaila Andres Topete MD Unavailable [phone] Aki Ross MD Unavailable [phone] Ursula Boo MD Unavailable Rocio Youssef PA-C Unavailable Emeterio Valencia MD Unavailable Diana Coppola MD Unavailable Allergies No known active allergies Medications Probiotic Product (PROBIOTIC-10 PO) Take by mouth. Activ e Multiple Vitamin tablet Take 1 tablet by mouth daily. Active loperamide (IMODIUM A-D) 2 MG tablet Take 2 tablets (4 mg total) by mouth. Active gabapentin (NEURONTIN) 800 MG tablet Take 1 tablet (800 mg total) by mouth nightly. 2 Active famotidine (PEPCID) 20 MG tabletIndicatio ns:Dyspepsia TAKE 1 TABLET (20 MG TOTAL) BY MOUTH 2 (TWO) TIMES A DAY NEEDED FOR INDIGESTION OR HEARTBURN. 180 tablet 3 2 Active empagliflozin (JARDIANCE) 10 MG tabletIndicatio ns:Chronic diastolic heart failure (HCC) Take 1 tablet (10 mg total) by mouth every morning. Do not start before May 30, 2023. 90 tablet 1 3 Active zolpidem (AMBIEN) 10 MG tablet Take 1 tablet (10 mg total) by mouth nightly as needed. 2 Active losartan (COZAAR) 25 MG tablet Take 1 tablet (25 mg total) by mouth daily. 3 Active atorvastatin (LIPITOR) 40 MG tabletIndicatio ns:Dyslipidemia TAKE 1 TABLET DAILY 90 tablet 4 4 Active metoPROLOL SUCCINATE (TOPROL-XL) 100 MG 24 hr tabletIndicatio ns:Gastroesopha geal reflux disease Take 1 tablet (100 mg total) by mouth daily. 90 tablet 3 4 Active Breo Ellipta 100-25 MCG/ACT inhaler Inhale 1 puff. 4 Active PARoxetine (PAXIL) 20 MG tablet Take 1 tablet (20 mg total) by mouth. 4 Active furosemide (LASIX) 20 MG tablet Take 20 mg by mouth daily. 5 Active torsemide (DEMADEX) 20 MG tablet Take 20 mg by mouth. 4 Active umeclidinium-vi lanterol (ANORO ELLIPTA) 62.5-25 MCG/ACT inhaler Inhale 1 puff daily. 4 Active potassium chloride (KLOR-CON) 10 MEQ tablet Take 1 tablet by mouth daily. 4 Active rifAXIMin (XIFAXAN) 550 MG tabletIndicatio ns:Irritable bowel syndrome with diarrhea Take 1 tablet (550 mg total) by mouth 3 (three) times a day. 42 tablet 5 Active dexlansoprazole (DEXILANT) 60 MG capsuleIndicati ons:Gastroesoph ageal reflux disease TAKE 1 CAPSULE DAILY DIRECTED 90 capsule 3 5 Active apixaban (Eliquis) 5 MG tabletIndicatio ns:Atrial fibrillation, unspecified type (HCC) Take 1 tablet (5 mg total) by mouth 2 (two) times a day. 180 tablet 3 5 Active amitriptyline (ELAVIL) 10 MG tablet Take 1 tablet by mouth nightly. Active dicyclomine (BENTYL) 20 MG tablet Take 1 tablet by mouth daily as needed. Active loratadine (CLARITIN) 10 MG tablet Take 1 tablet by mouth daily. Active nitrofurantoin monohydrate (MACROBID) 100 MG capsule TAKE 1 CAPSULE (100 MG TOTAL) BY MOUTH EVERY 12 (TWELVE) HOURS FOR 6 DOSES. 5 Active ondansetron (ZOFRAN) 4 MG tablet Take 1 tablet by mouth 3 (three) times a day. Active sacubitril-vals myron (Entresto) 24-26 mg per tablet Take 1 tablet by mouth 2 times a day. Active spironolactone (ALDACTONE) 25 MG tablet Take 12.5 mg by mouth. 5 Active apixaban (Eliquis) 5 MG tabletIndicatio ns:Atrial fibrillation, unspecified type (HCC) Take 1 tablet (5 mg total) by mouth 2 (two) times a day. 5 tablet 3 025 Discontin ued(Reord er) apixaban (Eliquis) 5 MG tabletIndicatio ns:Atrial fibrillation, unspecified type (HCC) Take 1 tablet (5 mg total) by mouth 2 (two) times a day. 180 tablet 5 025 Discontin ued(Reord er) Active Problems Problem Noted Date Diagnosed Date Fatty liver 03/22/2025 Exertional chest pain 03/22/2025 Elevated alkaline phosphatase level 03/22/2025 Class 1 obesity 03/22/2025 CKD (chronic kidney disease) stage 2, GFR 60-89 ml/min 03/22/2025 Acute renal insufficiency 03/22/2025 LA (generalized anxiety disorder) 03/22/2025 H/O iron deficiency anemia 03/22/2025 H/O: GI bleed 03/22/2025 Hx of colonic polyp 03/22/2025 Hypercoagulable state 03/22/2025 Hypokalemia 03/22/2025 Hypoxia 03/22/2025 Lightheaded 03/22/2025 Nonalcoholic fatty liver 03/22/2025 Prediabetes 03/22/2025 Vertigo 03/22/2025 Weakness 03/22/2025 Intractable abdominal pain 02/10/2025 Abdominal pain, acute 02/09/2025 Hypoxic 03/11/2024 Dilated bile duct 05/28/2023 06/11/2023 Restless legs [...] diastolic heart failure 04/16/2022 Overview (04/16/2022): Aki [facility] Irritable bowel syndrome 04/16/2022 Orthostatic hypotension 01/30/2022 [...] patient's plan is to return [place] permanently and they hope to travel in February if her physical condition allows. We discussed issues concerning travel by plane or car. She will see her radio sales account executive at [place] as soon as she can when she returns. In the interim if she has other issues she may call here to be seen prior to leaving. Chronic renal impairment, stage 3a 10/23/2021 Overview (04/16/2022): Last Assessment & Plan: Labile creatinine values. Continue to follow with primary care physicians. Interstitial lung disease 10/23/2021 Overview (04/16/2022): Last Assessment & Plan: Evaluated at [place] and her interstitial lung disease was not [...] Pacemaker dependent. Medtronic device. Follows remotely through [facility]. Last Assessment & Plan: Dual-chamber Medtronic pacemaker. Routinely follows through [facility] radio sales account executive. Interrogated here with recent syncopal episode. Normal function. Occasional mode switching in atrial high rates without ventricular high rates, 1.4% mode switching.? Ventricular runs. No tracings of that available for my review. We will continue to monitor remotely for now through her [facility] radio sales account executive. Dilated cardiomyopathy 10/23/2020 Overview (07/15/2021): Last Assessment & Plan: Some recent left ventricular dysfunction. Some consideration of repeat attempted coronary sinus lead for OPERATOR ASSISTANT I CEMENTING. This was unsuccessful in the past. She is to discuss and review this option with [facility] when she returns there late February [...] Plan: To follow-up rheumatology status up [place]. Apparently has lupus and Sjogren's syndrome. Autoimmune disorder 02/18/2019 Overview (04/16/2022): Last Assessment & Plan: Diagnoses has been uncertain. Has seen rheumatology of [place]. History of depression 02/06/2019 Congestive heart failure [...] Neuropathy 10/06/2018 Neuropathy 09/29/2018 Coronary arteriosclerosis in [place] artery 03/01 Coronary artery disease invo lving [place] coronary artery of [place] heart with angina pectoris 03/01/2018 Overview (07/15/2021): Last Assessment & Plan: Mild to moderate by past catheterization 2016. No ischemia 2018 stress test. Cardiac MRI did not suggest ischemia at [place]. No definite angina. Continue medical therapy and control of risk factors. See discussion concerning lipids. 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 Last Assessment & Plan: Stable left carotid stenosis by recent ultrasound. No TIA or strokelike symptoms or acute findings on head CT. Continue long-term control of cardiovascular risk factors and follow with her other physicians. [facility] vascular Memory impairment 12/02/2015 Memory loss [...] up labs. Will get records from Hem/Onc [facility] (Dr. Escalera at [facility] [place] in [place], [place]). Last Assessment & Plan: GI evaluation [...] by the advanced heart failure program at [place] when she returns up [place]. Added automatically from request for surgery [id number] Moderate by cath Nov: 66 mmHg peak systolic Last Assessment & Plan: Has been followed at the advanced heart failure program at [place] and Dr. Coppola. 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 Is maintained on beta-blockers and anticoagulation [...] Encounters Date Type Department Care Team Description 03/28/[address] [place] [phone] Ursula Boo MD 03/27/2025 Orders Only [facility] [address] [phone] Ursula Boo MD 03/22/2025 1:30 PM EDT Office Visit [address] [place] [phone] Ursula Boo MD Diarrhea, unspecified type (Primary Dx) 03/22/2025 Travel 03/07/[address] [facility] [place] [address] [phone] Aki Ross MD Medication Refill 01/20/[address] [phone] Ursula Boo MD 01/05/[address] [phone] Tl Mancera APRN Gastroesophageal reflux disease 01/02/[address] [phone] Ursula Boo MD from Last 3 Months Immunizations Immunization Administration Dates Next Due Covid-19 Vaccine, Unspecified [...] Sign Reading Time Taken Comments Blood Pressure 106/69 03/22/2025 1:27 PM EDT Pulse 85 03/22/2025 1:27 PM EDT Temperature 35.6 ??C (96.1 ??F) 07/21/2023 9:17 AM ED T Respiratory Rate 20 07/21/2023 1:02 PM EDT Oxygen Saturation 97% 07/21/2023 1:02 PM EDT Inhaled Oxygen Concentration - - Weight 91.7 kg (202 lb 3.2 oz) 03/22/2025 1:27 P M EDT Height 182.9 cm (6') 12/15/2024 9:07 AM EST Body Mass Index 27.42 12/15/2024 9:07 AM EST Plan of Treatment Upcoming Encounters Date Type Department Care Team (Late st Contact Info) Description 05/04/2025 10:00 AM EDT Office Visit [facility] [place] [address] [phone] Aki Ross MD [address] [place] [address] 05/11/2025 1:40 PM EDT Office Visit [facility] D[facility]at[facility] [place] [address] [place] [phone] Nico Bailey MD [address] [place] [address] Health Maintenance Due Date Last Done Comments DTaP/Tdap/Td Vaccines (1 - Tdap) 1967 DXA Bone Density (Females,Ages 65 and older) 2013 Zoster (Shingles) Vaccine (1 of 2) 09/24/2021 05/27/2022, 07/30/2021 COVID-19 Vaccine (11 - Moderna risk season) 2025 08/15/2024, 10/20/2023, 09/01/2023, Additional history exists Influenza Vaccine 06/23/2025 08/15/2024, , 08/24/2023, Additional history exists Pneumococcal Vaccines 50+ Completed 2021, 04/23/2021, 09/11/2020, Additional history exists Hepatitis C Virus Screening Completed 04/09/2023 RSV Vaccine 60 years and older and Patients Completed 10/05/2023 Hepatitis B Vaccines Aged Out No long er eligible based on patient's age to complete this topic Medical Devices Implanted Type Area Truss Driver Helper Device Identifier Shelf Expiration Date Model / Serial / Lot Medtronic 5076 Capsurefix Novus [id number] Implanted:05/2012 (Quantity not on file) Lead Medtronic 5076 CAPSUREFIX NOVUS / [id number] / Medtronic 5076 Capsurefix Novus [id number] Implanted:05/2012 (Quantity not on file) Lead Medtronic 5076 CAPSUREFIX NOVUS / [id number] / [id number] Pacemaker Cardiac 7.4mm 50.8x46.6mm Shoshana Xt Dr Palacios Surekraig - [id number] Implanted:Qty : 1 on 07/21/2023 by Nigel Moncada MD at [facility] Pacemaker Left: Chest Wall MEDTRONIC AORTIC AND PERIPHERA [id number] 12/06/2024 [id number] / [id number] / Explanted Type Area Truss Driver Helper Device Identifier Shelf Expiration Date Model / Serial / Lot [id number] Pacemaker Cardiac 7.5mm 52.3x45.4mm Junaida Dr [facility]-04/29/2012 Implanted:05/2012 (Quantity not on file) Explanted:Qty: 1 on 07/21/2023 by Nigel Moncada MD Pacemaker MEDTRONIC AORTIC AND PERIPHERA [id number] / [id number] / Procedures Procedure Name Priority Date/Time Associated Diagnosis Comments LAB RESULT Routine 03/24/2025 8:26 AM EDT COMPLETE BLOOD COUNT, WITH DIFFERENTIAL Routine 01/16/2025 2:02 PM EST Abnormal LFTs COMPREHENSIVE METABOLIC PANEL Routine 01/16/2025 2:02 PM EST Abnormal LFTs LIVER FIBROSIS, FIBROTEST-ACTITEST Routine 01/16/2025 2:02 PM EST Abnormal LFTs HEPATITIS C VIRUS (HCV) ANTIBODY Routine 04/09/2023 2:02 PM EDT from Last 3 Months or Most Recently Relevant to Health Maintenance Results * LAB RESULT (03/24/2025 8:26 AM EDT) us Ursula Boo MD HX AMB PROCEDURES Final Resu lt * (ABNORMAL) Liver Fibrosis, FibroTest-Actitest (01/16/2025 2:02 PM EST) Fibrosis Score 0.25 [facility], Fibrosis Stage F0-F1 [facility], Fibrosis Interpretation SEE NOTE [facility], Comment: ?? no fibrosis Fibro Test Score (f) ??Metavir Score [...] : F4 (severe fibrosis) Necroinflammat Activity Score 0.02 [facility], Necroinflamma Activity Grade A0 [facility], Necroinflammat Interpretation SEE NOTE [facility], Comment: ?? no activity ActiTest Score (a) ?Metavir Score ??a>=0 and a<=0.17 : A0 (no activity) a>0.17 and a<=0.29 : A0-A1 (no activity) a>0.29 and a<=0.36 : A1 (minimal activity) a>0.36 and a<=0.52 : A1-A2 (minimal activity) a>0.52 and a<=0.60 : A2 (significant activity) a>0.60 and a<=0.62 : A2-A3 (significant activity) a>0.62 and a<=1.00 : A3 (severe activity) Kjufr-3-Pnugheysmrw in 220 106 - 279 mg/dL [facility], Haptoglobin 231(H) 43 - 212 mg/dL [facility], Apolipoprotein A1 146 101 - 198 mg/dL [facility], Bilirubin 0.6 0.2 - 1.2 mg/dL [facility], GGT 17 3 - 65 U/L [facility], ALT 10 6 - 29 U/L [facility], Reference ID [id number] [facility], Footnote SEE NOTE [facility], Comment: ?? The reliability of results is dependent on compliance with the preanalytical and analytical conditions recommended by [employer]. The tests have to be deferred for: [...] The performance characteristics have been determined by [facility]. It has not been cleared or approved by the U.S. Food and Drug Administration. Performance characteristics refer to the analytical performance of the test. [employer], [employer], the associated logo, [employer] and all associated [employer] [facility] gonzales are the registered trademarks of [employer]. All third green party gonzales - (R) and (TM) - are the property of their respective owners. (C) 7200-6021 [employer]. All rights reserved. Blood 01/16/2025 2:02 PM EST 01/16/2025 2:02 PM EST Narrative [facility] - 01/20/2025 12:53 AM EST FASTING:NO FASTING: NO us Ursula Boo MD LAB BLOOD ORDERABLES Final R esult [facility], [address] [place] [address] * (ABNORMAL) Complete Blood Count, with Differential (01/16/2025 2:02 PM EST) White Blood Cell Count 12.2(H) 3.8 - 10.8 Thousand/ uL [employer] Red Blood Cell Count 5.19(H) 3.80 - 5.10 Million/u L [employer] Hemoglobin 13.7 11.7 - 15.5 g/dL [facility] [employer] Hematocrit 43.4 35.0 - 45.0 % [facility] [employer] MCV 83.6 80.0 - 100.0 fL [facility] [employer] MCH 26.4(L) 27.0 - 33.0 pg [employer] MCHC 31.6(L) 32.0 - 36.0 g/dL [employer] Comment: For adults, a slight decrease in the calculated MCHC value (in the range of 30 to 32 g/dL) is most likely not clinically significant; however, it should be interpreted with caution in correlation with other red cell parameters and the patient's clinical condition. RDW 14.5 11.0 - 15.0 % [employer] Platelet Count 274 140 - 400 Thousand/ uL [employer] MPV 12.3 7.5 - 12.5 fL [facility] [employer] Abs Neutrophils Auto 8,906(H) 1,500 - 7,800 cells/uL [facility] [employer] Abs Lymphocytes Auto 2,196 850 - 3,900 cells/uL [facility] [employer] Abs Monocytes Auto 573 200 - 950 cells/uL [facility] [employer] Abs Eosinophils Auto 439 15 - 500 cells/uL [employer] Abs Basophils Auto 85 0 - 200 cells/uL [employer] Neutrophils Auto 73 % [facility] [employer] Lymphocytes Auto 18.0 % [employer] Monocytes Auto 4.7 % [facility] [employer] Eosinophils Auto 3.6 % [employer] Basophils Auto 0.7 % [employer] Blood 01/16/2025 2:02 PM EST 01/16/2025 2:02 PM EST Narrative [facility] - 01/20/2025 12:53 AM EST FASTING:NO FASTING: NO us Ursula Boo MD LAB BLOOD ORDERABLES Final R esult [employer] [address] [place] [address] * Comprehensive Metabolic Panel (01/16/2025 2:02 PM EST) Glucose 108 65 - 139 mg/dL [employer] Comment: ? Non-fasting reference interval Blood Urea Nitrogen (BUN) 8 7 - 25 mg/dL [employer] Creatinine 0.90 0.60 - 1.00 mg/dL [employer] Creatinine w/ eGFR 66 > OR = 60 mL/min/1. 73m2 [employer] BUN/Creatinine Ratio SEE NOTE: 6 - 22 (calc) [employer] Comment: ?? Not Reported: BUN and Creatinine are within ?? reference range. ? Sodium 138 135 - 146 mmol/L [employer] Potassium 3.8 3.5 - 5.3 mmol/L [employer] Chloride 101 98 - 110 mmol/L [employer] CO2 30 20 - 32 mmol/L [employer] Calcium 9.3 8.6 - 10.4 mg/dL [employer] Protein, Total 7.4 6.1 - 8.1 g/dL [employer] Albumin 4.0 3.6 - 5.1 g/dL [employer] Globulin 3.4 1.9 - 3.7 g/dL (calc) [employer] Albumin/Globuli n Ratio 1.2 1.0 - 2.5 (calc) [employer] Bilirubin, Total 0.7 0.2 - 1.2 mg/dL [employer] Alkaline Phosphatase 113 37 - 153 U/L [employer] Aspartate Aminotrans (AST) 17 10 - 35 U/L [employer] Alanine Aminotrans (ALT) 11 6 - 29 U/L [employer] Blood 01/16/2025 2:02 PM EST 01/16/2025 2:02 PM EST Narrative [facility] - 01/20/2025 12:53 AM EST FASTING:NO FASTING: NO us Ursula Boo MD LAB BLOOD ORDERABLES Final R esult [facility] [address] [place] [address] * HEPATITIS C VIRUS (HCV) ANTIBODY (04/09/2023 2:02 PM EDT) Hepatitis C Antibody NON-REACT OBEY NON-REACT OBEY [employer] Hepatitis C Antibody (s/co) 0.15 <1.00 [employer] Comment: HCV antibody was non-reactive. There is no laboratory evidence of HCV infection. In most cases, no further action is required. However, if recent HCV exposure is suspected, a test for HCV RNA (test code 58140) is suggested. For additional information please refer to http://education.[place] Free Class[employer]/faq/GCV09q0 (This link is being provided for informational/ educational purposes only.) 04/09/2023 2:02 PM EDT 04/09/2023 2:12 PM EDT Narrative [facility] - 04/24/2023 9:00 AM EDT FASTING:YES FASTING: YES us Ursula Boo MD LAB BLOOD ORDERABLES Final R esult [employer] [address] [place] [phone] from Last 3 Months or Most Recently Relevant to Health Maintenance Insurance MEDICARE PART A & B [facility] MEDICARE PART A & B BLUE CROSS OUT OF [facility] Advance Directives * Full Code (Latest Code Status on File) Date Activated Date Inactivated Comments 07/21/2023 9:00 AM Care Teams Redeye Gunner Relationship Specialty Start Date End Date Jace Blake MD [address] [place] [address] PCP - General Psychiatry, General 05/04/17 ProviderRachid MD 04/27/17 [place] [address] [place] [address] Wool Cleaner Cardiology 07/08/19 Aki Ross MD [address] [place] [address] Primary Wool Cleaner Cardiovascular Disease 07/08/19 Ursula Boo MD [address] [place] [address] Gastroenterology 06/07/20 Rocio Youssef PA-C [address] [place] [address] Physician Population Health Manager Gastroenterology 06/07/20 Emeterio Valencia MD [address] [place] [address] Clinician Pulmonary Medicine 06/20/20 Diana Coppola MD [address] [address] Internal Medicine 03/22/25
--- OUTSIDE RECORDS SUMMARY | 2025-03-31 13:00 | XMS_ITS | Encounter Summary ---
Author Organization [facility] Address [address] [place] [phone] Care Team Providers Care Dispatch Coordinator Name Role Phone BlakeJace Primary Care Provider [phone] Encounter Details Date Type Department Care Team (Late Contact Info) Description 08/07/2020 Scanned Document [facility] Health Information Management [address] [place] [phone] External, Provider Social History Tobacco Use Types [...] EDT Follow Up Neuromuscular Medicine at [address] [address] Silvestre Maldonado MD 800 [place] [phone] 07/19/2025 12:20 PM EDT Follow Up Congestive Heart Failure Program at 800 [facility] [address] [place] [address] Diana Coppola MD [address] [place] [address] 10/05/2025 12:30 PM EST Appointment [facility] - [address] [phone] Aparna Chang MD [address] [place] [phone] [address], [facility] Walk 10/05/2025 1:00 PM EST Appointment [facility] - [address] [address] Aparna Chang MD [address] [place] [phone] 1, Pft Procedure Room 10/05/2025 2:00 PM EST Office Visit [facility] [address] [address] Aparna Chang MD [address] [place] [phone] documented as of this encounter Procedures Procedure Name Priority Date/Time Associated Diagnosis Comments LAB SCAN Routine 08/07/2020 documented in this encounter Results * Lab Scan (08/07/2020) us Provider External LAB BLOOD ORDERABLES Final Res ult documented in this encounter Visit Diagnoses Not on filedocumented in this encounter Care Teams Dispatch Coordinator Relationship Specialty Start Date End Date Jace Blake DO [address] [place] [address] PCP - General Family Medicine 08/01/14 documented as of this encounter
--- OUTSIDE RECORDS SUMMARY | 2025-03-31 13:00 | XMS_ITS | Encounter Summary ---
Author Organization [facility] and [facility] Address [address] [place] [address] Care Team Providers Care Tester Wafer Substrate Name Role Phone Jace Blake DO Primary Care Provider [phone] Encounter Details Date Type Department Care Team (Late st Contact Info) Description 06/19/2023 Scanned Document Congestive Heart Failure Program at [address] 2nd [place], [place] [address] Iram Navarro, WALDEMAR [address] [place] [phone] Social History Tobacco Use Types Packs/Day Years [...] AM EDT Follow Up Neuromuscular Medicine at [address] [place] [address] 800 [facility] [place] [address] Silvestre Maldonado MD [address] [place] [phone] 07/19/2025 12:20 PM EDT Follow Up Congestive Heart Failure Program at [address] [place] [address] 2nd [place] [address] Diana Coppola MD [address] [place] [phone] 10/05/2025 12:30 PM EST Appointment [facility] - [address] [address] Aparna Chang MD [address] [place] [phone] [facility], Pft Walk 10/05/2025 1:00 PM EST Appointment [facility] - [address] [address] Aparna Chang MD [address] [place] [phone] 1, Pft Procedure Room 10/05/2025 2:00 PM EST Office Visit [facility] [address] [phone] Aparna Chang MD [address] [place] [phone] documented as of this encounter Visit Diagnoses Not on filedocumented in this encounter Additional Health Concerns Assessment Noted Time PHQ-9 Depression Total Score: 0 06/17/20 23 11:05 AM EDT documented as of this encounter Care Teams Tester Wafer Substrate Relationship Specialty Start Date End Date Jace Blake DO [address] [place] [address] PCP - General Family Medicine 08/01/14 documented as of this encounter
--- OUTSIDE RECORDS SUMMARY | 2025-03-31 13:00 | XMS_ITS | Encounter Summary ---
Author Organization [facility] and [facility] Address [address] [place] [phone] Care Team Providers Care Sub Master Name Role Phone Blake, Gary Primary Care Provider Encounter Details Date Type Department Care Team (Late st Contact Info) Description 08/23/2020 Abstract [facility] 789 [facility], 2nd floor [facility], [address] [place], [place] [address] Aparna Chang MD [address] [place] [phone] Social History Tobacco Use Types Packs/Day [...] [facility] 800 [place] [address] Silvestre Maldonado MD 800 [place] [phone] 07/19/2025 12:20 PM EDT Follow Up Congestive Heart Failure Program at 800 [facility] [address] [place] [address] Diana Coppola MD 800 [place] [phone] 10/05/2025 12:30 PM EST Appointment [facility] - [address] [address] Aparna Chang MD [address] [place] [phone] [facility], Pft Walk 10/05/2025 1:00 PM EST Appointment [facility] - [address] [place] [address] Aparna Chang MD [address] [place] [phone] 1, Pft Procedure Room 10/05/2025 2:00 PM EST Office Visit [facility] [address] [address] Aparna Chang MD [address] [place] [phone] documented as of this encounter Visit Diagnoses Not on filedocumented in this encounter Care Teams Sub Master Relationship Specialty Start Date End Date Jace Blake DO [address] [place] [address] PCP - General Family Medicine 08/01/14 documented as of this encounter
--- OUTSIDE RECORDS SUMMARY | 2025-03-31 13:00 | XMS_ITS | Encounter Summary ---
Author Organization [facility] and [facility] Address [address] [place] [phone] Care Team Providers Care Licensed Nurse Practitioner Name Role Phone Miguel Angel Blakey Primary Care Provider [phone] Encounter Details Date Type Department Care Team (Late st Contact Info) Description 01/01/2024 Scanned Document [facility] [address] [place] [address] Will Priest MD [address] [place] [phone] Social History Tobacco Use Types Packs/Day Years [...] AM EDT Follow Up Neuromuscular Medicine at [address] [place] [address] 800 [facility] [place] [address] Silvestre Maldonado MD [address] [place] [phone] 07/19/2025 12:20 PM EDT Follow Up Congestive Heart Failure Program at [address] [place] [address] 800 [facility] 2nd [place] [address] Diana Coppola MD [address] [place] [phone] 10/05/2025 12:30 PM EST Appointment [facility] - [address] [address] Aparna Chang MD [address] [place] [phone] [facility], Pft Walk 10/05/2025 1:00 PM EST Appointment [facility] - [address] [address] Aparna Chang MD [address] [place] [phone] 1, Pft Procedure Room 10/05/2025 2:00 PM EST Office Visit [facility] [address] [phone] Aparna Chang MD [address] [place] [phone] documented as of this encounter Procedures Procedure Name Priority Date/Time Associated Diagnosis Comments PACEMAKER INTERROGATION-IN OFFICE Routine 12/31/2023 12:57 PM EST documented in this encounter Results * Pacemaker Interrogation-In Office (12/31/2023 12:57 PM EST) Anatomical Region Laterality Modality Chest Other us Will Priest MD CAR DEVICE INTER ORDERABLES Fin al Result documented in this encounter Visit Diagnoses Not on filedocumented in this encounter Additional Health Concerns Assessment Noted Time PHQ-9 Depression Total Score: 0 12/31/19 24 11:03 AM EST documented as of this encounter Care Teams Licensed Nurse Practitioner Relationship Specialty Start Date End Date Jace Blake DO [address] [place] [address] PCP - General Family Medicine 08/01/14 documented as of this encounter
--- OUTSIDE RECORDS SUMMARY | 2025-03-31 13:00 | XMS_ITS | Encounter Summary ---
Author Organization [facility] Address [address] [place] [address] Care Team Providers Care Hog Scalder Name Role Phone Jace Blake MD Primary Care Provider Provider, Rachid GARCIA Unavailable Unavaila Andres Topete MD Unavailable [phone] Aki Ross MD Unavailable [phone] Ursula Boo MD Unavailable Rocio Youssef PA-C Unavailable [phone] Emeterio Valencia MD Unavailable Diana Coppola MD Unavailable Encounter Details Date Type Department Care Team (Late st Contact Info) Description 10/27/[address] [facility] [address] [place] [address] Ursula Boo MD [address] [place] [phone] Social History Tobacco Use Types Packs/Day [...] Description 05/04/2025 10:00 AM EDT Office Visit [facility] [place] [address] [phone] Aki Ross MD [address] [place] [address] 05/11/2025 1:40 PM EDT Office Visit [facility] Medical [facility] Dermatology [address] [phone] Nico Baliey MD [address] [place] [address] documented as of this encounter Visit Diagnoses Not on filedocumented in this encounter Additional Health Concerns Infection Onset Date Last Indicated Resolved Time R/O Gastrointestinal Infection 03/22/2025 03/22/2025 03/23/2025 10:28 PM EDT documented as of this encounter Care Teams Hog Scalder Relationship Specialty Start Date End Date Jace Blake MD [address] [place] [address] PCP - General Psychiatry, General 05/04/17 Rachid Robles MD 04/27/17 Andres Lakhani MD [address] [place] [address] Manager Support Cardiology 07/08/19 Aki Ross MD [address] [address] Primary Manager Support Cardiovascular Disease 07/08/19 Ursula Boo MD [address] [address] Gastroenterology 06/07/20 Rocio Youssef PA-C [address] [place] [address] Physician Tack Cleaner Gastroenterology 06/07/20 Emeterio Valencia MD [address] [place] [address] Clinician Pulmonary Medicine 06/20/20 Diana Coppola MD [address] [place] [address] Internal Medicine 03/22/25 documented as of this encounter
--- OUTSIDE RECORDS SUMMARY | 2025-03-31 13:00 | XMS_ITS | Encounter Summary ---
Author Organization [facility] and [facility] Address [address] [place] [address] Care Team Providers Care Instrumentation Supervisor Name Role Phone Jace Blake DO Primary Care Provider [phone] Encounter Details Date Type Department Care Team (Late st Contact Info) Description 06/15/2023 Abstract Congestive Heart Failure Program at [address] 2nd [place], [place] [address] Diana Coppola MD [address] [place] [phone] Social History Tobacco Use Types Packs/Day [...] AM EDT Follow Up Neuromuscular Medicine at [address] [place] [address] 800 [facility] [place] [address] Silvestre Maldonado MD [address] [place] [phone] 07/19/2025 12:20 PM EDT Follow Up Congestive Heart Failure Program at [address] [place] [address] 800 [facility] 2nd [place] [address] Diana Coppola MD [address] [place] [address], [place] [phone] 10/05/2025 12:30 PM EST Appointment [facility] - [address] [address] Aparna Chang MD [address] [place] [phone] [facility], Pft Walk 10/05/2025 1:00 PM EST Appointment [facility] - [address] [address] Aparna Chang MD [address] [place] [phone] 1, Pft Procedure Room 10/05/2025 2:00 PM EST Office Visit [facility] [address] [phone] Aparna Chang MD [address] [place] [phone] documented as of this encounter Visit Diagnoses Not on filedocumented in this encounter Additional Health Concerns Assessment Noted Time PHQ-9 Depression Total Score: 0 07/10/20 10:52 AM EDT documented as of this encounter Care Teams Instrumentation Supervisor Relationship Specialty Start Date End Date Jace Blake DO [address] [place] [address] PCP - General Family Medicine 08/01/14 documented as of this encounter
--- OUTSIDE RECORDS SUMMARY | 2025-03-31 13:00 | XMS_ITS | Encounter Summary ---
Author Organization [facility] and [facility] Address [address] [place] [phone] Care Team Providers Care Medical Physics Researcher Name Role Phone Blake, Gary Primary Care Provider [phone] Encounter Details Date Type Department Care Team (Late st Contact Info) Description 04/30/2020 Scanned Document [facility] Health Information Management [address] [place] [phone] External, Provider Social History Tobacco Use Types [...] EDT Follow Up Neuromuscular Medicine at [address] [address] Silvestre Maldonado MD [address] [place] [phone] 07/19/2025 12:20 PM EDT Follow Up Congestive Heart Failure Program at 800 [facility] 800 [facility] 2nd [place] [address] Diana Coppola MD [address] [place] [phone] 10/05/2025 12:30 PM EST Appointment [facility] - [address] [address] Aparna Chang MD [address] [place] [phone] [facility], Pft Walk 10/05/2025 1:00 PM EST Appointment [facility] - [address] [address] Aparna Chang MD [address] [place] [phone] 1, Pft Procedure Room 10/05/2025 2:00 PM EST Office Visit [facility] [address] [phone] Aparna Chang MD [address] [place] [phone] documented as of this encounter Procedures Procedure Name Priority Date/Time Associated Diagnosis Comments LAB SCAN Routine 04/30/2020 documented in this encounter Results * Lab Scan (04/30/2020) us Provider External LAB BLOOD ORDERABLES Final Res ult documented in this encounter Visit Diagnoses Not on filedocumented in this encounter Care Teams Medical Physics Researcher Relationship Specialty Start Date End Date Jace Blake DO [address] [place] [address] PCP - General Family Medicine 08/01/14 documented as of this encounter
--- OUTSIDE RECORDS SUMMARY | 2025-03-31 13:00 | XMS_ITS | Encounter Summary ---
Author Organization [facility] and [facility] Address [address] [place] [phone] Care Team Providers Care Performance Instructor Name Role Phone Jace Blake DO Primary Care Provider [phone] Encounter Details Date Type Department Care Team (Late st Contact Info) Description 07/16/2023 Transcribed Orders [facility] [address] [place] [address] Aki Ross MD [address] [phone] Social History Tobacco Use Types [...] AM EDT Follow Up Neuromuscular Medicine at [address] [place] [address] 800 [facility] [place] [address] Silvestre Maldonado MD [address] [place] [phone] 07/19/2025 12:20 PM EDT Follow Up Congestive Heart Failure Program at [address] [place] [address] 800 [facility] 2nd [place] [address] Diana Coppola MD [address] [place] [address], [place] [phone] 10/05/2025 12:30 PM EST Appointment [facility] - [address] [phone] Aparna Chang MD [address] [place] [phone] [facility], Pft Walk 10/05/2025 1:00 PM EST Appointment [facility] - [address] [address] Aparna Chang MD [address] [place] [phone] 1, Pft Procedure Room 10/05/2025 2:00 PM EST Office Visit [facility] [address] [phone] Aparna Chang MD [address] [place] [phone] documented as of this encounter Visit Diagnoses Not on filedocumented in this encounter Additional Health Concerns Assessment Noted Time PHQ-9 Depression Total Score: 0 07/01/20 23 10:25 AM EDT documented as of this encounter Care Teams Performance Instructor Relationship Specialty Start Date End Date Jace Blake DO [address] [place] [address] PCP - General Family Medicine 08/01/14 documented as of this encounter
--- OUTSIDE RECORDS SUMMARY | 2025-03-31 13:01 | XMS_ITS | Encounter Summary ---
Author Organization [facility] and [facility] Address [address] [place] [address] Care Team Providers Care Salt Refiner Name Role Phone Miguel Angel Blakey Primary Care Provider Encounter Details Date Type Department Care Team (Late st Contact Info) Description 06/09/2019 Scanned Document Neurosurgery at [address] [place] [address] Narda Candelaria PA [address] [place] [phone] Social History Tobacco Use Types Packs/Day Years [...] EDT Follow Up Neuromuscular Medicine at [address] [phone] Silvestre Maldonado MD [address] [place] [phone] 07/19/2025 12:20 PM EDT Follow Up Congestive Heart Failure Program at [address] [facility] [address] [place] [address] Diana Coppola MD 800 [place] [phone] 10/05/2025 12:30 PM EST Appointment [facility] - [address] [address] Aparna Chang MD [address] [place] [phone] [facility], Pft Walk 10/05/2025 1:00 PM EST Appointment [facility] - [address] [place] [address] Aparna Chang MD [address] [place] [phone] 1, Pft Procedure Room 10/05/2025 2:00 PM EST Office Visit [facility] [address] [phone] Aparna Chang MD [address] [place] [phone] documented as of this encounter Visit Diagnoses Not on filedocumented in this encounter Care Teams Salt Refiner Relationship Specialty Start Date End Date Jace Blake DO [address] [place] [phone] PCP - General Family Medicine 08/01/14 documented as of this encounter
--- OUTSIDE RECORDS SUMMARY | 2025-03-31 13:01 | XMS_ITS | Encounter Summary ---
Author Organization [facility] and [facility] Address [address] [place] [phone] Care Team Providers Care Plastic Surgery Coordinator Name Role Phone HaydenJace Primary Care Provider [phone] Encounter Details Date Type Department Care Team (Late st Contact Info) Description 05/04/[address] [facility] [place] [facility] [address] [place] [address] Jana Escalera MD [address] [place] [phone] Granulocytosis (Primary Dx) Social History Tobacco [...] EDT Follow Up Neuromuscular Medicine at [address] [phone] Silvestre Maldonado MD [address] [place] [phone] 07/19/2025 12:20 PM EDT Follow Up Congestive Heart Failure Program at 800 [facility] [address] [place] [address] Diana Coppola MD 800 [place] [address] 10/05/2025 12:30 PM EST Appointment P[facility]AT[facility] - [address] [address] Aparna Chang MD [address] [place] [phone] [facility], Pft Walk 10/05/2025 1:00 PM EST Appointment [facility] - [address] [place] [address] Aparna Chang MD [address] [place] [phone] 1, Pft Procedure Room 10/05/2025 2:00 PM EST Office Visit [facility] [address] [phone] Aparna Chang MD [address] [place] [phone] documented as of this encounter Results [...] Risk factor for thrombosis Test Performed at: [facility] [address] [place], [place] ??[phone] Teodoro Shore M.D., Ph.D.,Director of Laboratories Blood Venipuncture / Unknown 05/04/2019 12:08 PM EDT 05/04/2019 12:13 PM EDT us Jana Escalera MD LAB BLOOD ORDERABLES Final Re sult [facility] * (ABNORMAL) Lupus anticoagulant (BH GH L LMW YH) (05/04/2019 12:08 PM EDT) LA1 Screening 83.9(H) 30.0 - 42.0 seconds 05/10/2019 11:30 AM EDT [facility] LA1 + Normal Plasma 40.9 30.0 - 42.0 seconds 05/10/2019 11:30 AM EDT [facility] LA2 Confirmation 51.7(H) 29.0 - 35.0 seconds 05/10/2019 11:30 AM EDT [facility] LA2 + Normal Plasma 36.4(H) 29.0 - 35.0 seconds 05/10/2019 11:30 AM EDT [facility] LA1/LA2 Ratio 1.12 0.90 - 1.30 05/10/2019 11:30 AM EDT [facility] LA Interpretation Elevated LA1 screening/LA2 confirmation result with almost complete correction on mixing studies. The findings are suggestive of possible factor deficiency versus oral anticoagulation therapy. Correlation with clinical findings is advised. Reviewed by Leonardo Wagner on 05.10.2019 11.09 05/10/2019 11:30 AM EDT [facility] Blood Venipuncture / Unknown 05/04/2019 12:08 PM EDT 05/04/2019 12:13 PM EDT Narrative [facility] - 05/10/2019 11:30 AM EDT LA1 [...] MD LAB BLOOD ORDERABLES Final Re sult [facility] [address] [place] [address] * Cardiolipin Abs, IgA, IgG, IgM (BH GH LMW Q YH) (05/04/2019 12:08 PM EDT) Cardiolipin IgA <11 <=11 APL 9 4:12 AM EDT [facility] Comment: Cardiolipin Ab (IgA) Reference Range: Value ? Interpretation ? < or = 11 ? Negative 12 - 20 ? Indeterminate 21 - 80 ? Low to Medium Positive > 80 ?High Positive Cardiolipin IgG <14 <=14 GPL 9 4:12 AM EDT [facility] Comment: Cardiolipin Ab (IgG) Reference Range: Value ? Interpretation ? < or = 14 ? Negative 15 - 20 ? Indeterminate 21 - 80 ? Low to Medium Positive > 80 ?High Positive Cardiolipin IgM <12 <=12 MPL 05/06/201 9 4:12 AM EDT [facility] Comment: Cardiolipin Ab (IgM) Reference Range: Value [...] drug therapy or aging. Test Performed at: [facility] [address] [place], [place] ??[phone] Teodoro Shore M.D., Ph.D.,Director of Laboratories Blood Venipuncture / Unknown 05/04/2019 12:08 PM EDT 05/04/2019 12:13 PM EDT us Jana Escalera MD LAB BLOOD ORDERABLES Final Re sult [facility] * (ABNORMAL) Antiphospholipid antibody panel (GH LMW Q) (05/04/2019 12:08 PM EDT) Antiphospholipid Ab Panel Interpretation SEE BELOW 05/06/2019 4:27 AM EDT [facility] Comment: The antiphospholipid antibody syndrome (APS) is [...] <9 <=20 SGU 05/06 4:27 AM EDT [facility] B2-Glycoprotein IgA <9 <=20 LILLY 05/06 4:27 AM EDT [facility] B2-Glycoprotein IgM 32(H) <=20 SMU 05/06 4:27 AM EDT [facility] Phosphatidylserine Ab IgA <20 <20 U/mL 05/06/2019 4:27 AM EDT [facility] Comment: Phosphatidylserine (IgA) Reference range: ??<20 U/mL ??Negative 20-30 U/mL ??Equivocal - Found in small percentage ?of the healthy population; may be reactive ??>30 U/mL ??Positive - Risk factor for thrombosis Phosphatidylserine Ab IgG <10 <10 U/mL 05/06/2019 4:27 AM EDT [facility] Comment: Phosphatidylserine (IgG) Reference range: ??<10 U/mL ??Negative 10-20 U/mL ??Equivocal - Found in small percentage ?of the healthy population; may be reactive ??>20 U/mL ??Positive - Risk factor for thrombosis ?and loss. Phosphatidylserine Ab IgM <25 <25 U/mL 05/06/2019 4:27 AM EDT [facility] Comment: Phosphatidylserine (IgM) Reference range: ??<25 U/mL ??Negative 25-35 U/mL ??Equivocal - Found in small percentage ?of the healthy population; may be reactive ??>35 U/mL ??Positive - Risk factor for thrombosis Cardiolipin IgA <11 <=11 APL 9 4:27 AM EDT [facility] Comment: Cardiolipin Ab (IgA) Reference Range: Value ? Interpretation ? < or = 11 ? Negative 12 - 20 ? Indeterminate 21 - 80 ? Low to Medium Positive > 80 ?High Positive Cardiolipin IgG <14 <=14 GPL 9 4:27 AM EDT [facility] Comment: Cardiolipin Ab (IgG) Reference Range: Value ? Interpretation ? < or = 14 ? Negative 15 - 20 ? Indeterminate 21 - 80 ? Low to Medium Positive > 80 ?High Positive Cardiolipin IgM <12 <=12 MPL 9 4:27 AM EDT [facility] Comment: Cardiolipin Ab (IgM) Reference Range: Value ? Interpretation ? < or = 12 ? Negative 13 - 20 ? Indeterminate 21 - 80 ? Low to Medium Positive > 80 ?High Positive Test Performed at: [facility] [address] [place], [place] ??[phone] Teodoro Shore M.D., Ph.D.,Director of Laboratories Blood Venipuncture / Unknown 05/04/2019 12:08 PM EDT 05/04/2019 12:13 PM EDT us Jana Escalera MD LAB BLOOD ORDERABLES Final Re sult [facility] documented in this encounter Visit Diagnoses Diagnosis Granulocytosis- Primary Other elevated white blood cell count documented in this encounter Care Teams Plastic Surgery Coordinator Relationship Specialty Start Date End Date Jace Blake DO [address] [place] [address] PCP - General Family Medicine 08/01/14 documented as of this encounter
--- OUTSIDE RECORDS SUMMARY | 2025-03-31 13:01 | XMS_ITS | Encounter Summary ---
Author Organization Formerly [facility] Address [address] [place] [address] Care Team Providers Care Residential Assistant Name Role Phone Jace Blake MD Primary Care Provider Provider, Rachid GARCIA Unavailable Unavaila Andres Topete MD Unavailable [phone] Aki Ross MD Unavailable [phone] Ursula Boo MD Unavailable Rocio Youssef PA-C Unavailable Emeterio Valencia MD Unavailable Diana Coppola MD Unavailable Encounter Details Date Type Department Care Team (Late st Contact Info) Description 08/09/2020 Scanned Document [facility] [address] [place] [address] Ursula Boo MD [address] [place] [phone] Social History Tobacco Use Types Packs/Day [...] [facility] V[facility] [place] 45 [facility] 102 [place] [phone] Aki Ross MD [address] [place] [address] 102 [place] [address] 05/11/2025 1:40 PM EDT Office Visit [facility] Dermatology [place] 35 [place] [address] Nico Bailey MD [address] [place] [address] documented as of this encounter Visit Diagnoses Not on filedocumented in this encounter Additional Health Concerns Infection Onset Date Last Indicated Resolved Time R/O Gastrointestinal Infection 03/22/2025 03/22/2025 03/23/2025 10:28 PM EDT documented as of this encounter Care Teams Residential Assistant Relationship Specialty Start Date End Date Jace Blake MD [address] [place] [address] PCP - General Psychiatry, General 05/04/17 ProviderRachid MD 04/27/17 [place] [address] [place] [address] Splicer Machine Operator Cardiology 07/08/19 Aki Ross MD [address] [address] Primary Splicer Machine Operator Cardiovascular Disease 07/08/19 Ursula Boo MD [address] [address] Gastroenterology 06/07/20 Rocio Youssef PA-C [address], [place] [address] Physician Reach Lift Truck Driver Gastroenterology 06/07/20 Emeterio Valencia MD [address] [address] Clinician Pulmonary Medicine 06/20/20 Diana Coppola MD [address] [address] Internal Medicine 03/22/25 documented as of this encounter
--- OUTSIDE RECORDS SUMMARY | 2025-03-31 13:01 | XMS_ITS | Encounter Summary ---
Author Organization [facility] Address 100 [place] [address] Care Team Providers Care Standard Machine Stitcher Name Role Phone Jace Blake MD Primary Care Provider Provider, Rachid GARCIA Unavailable Unavaila Andres Topete MD Unavailable [phone] Aki Ross MD Unavailable [phone] Ursula Boo MD Unavailable [phone] Rocio Youssef PA-C Unavailable [phone] Emeterio Valencia MD Unavailable Diana Coppola MD Unavailable Encounter Details Date Type Department Care Team (Late st Contact Info) Description 07/02/2017 Orders Only [facility] Heart & Vascular [place] [address] [address] Aki Ross MD [address] [place] [address] 102 [place] [address] Social History Tobacco Use Types [...] Description 05/04/2025 10:00 AM EDT Office Visit [facility] [place] [address] 102 [place] [address] Aki Ross MD [address] [place] [address] 102 [place], [place] [phone] 05/11/2025 1:40 PM EDT Office Visit [facility] Dermatology [place] 35 [place] [address] Nico Bailey MD [address] [place] [phone] documented as of this encounter Procedures Procedure [...] Please see attached document for final result us Aik Ross MD CV CARDIAC SERVICES ORDERABLES Edited Result - Final documented in this encounter Visit Diagnoses Not on filedocumented in this encounter Additional Health Concerns Infection Onset Date Last Indicated Resolved Time R/O Gastrointestinal Infection 03/22/2025 03/22/2025 03/23/2025 10:28 PM EDT documented as of this encounter Care Teams Standard Machine Stitcher Relationship Specialty Start Date End Date Jace Blake MD 1158 [place] [address] PCP - General Psychiatry, General 05/04/17 ProviderRachid MD 04/27/17 Andres Lakhani MD [address] [place] [address] Requisition Approver Cardiology 07/08/19 Aki Ross MD [address] [address] Primary Requisition Approver Cardiovascular Disease 07/08/19 Ursula Boo MD [address] [place] [address] Gastroenterology 06/07/20 Rocio Youssef PA-C [address] [address] Physician Tobacco Flavorer Gastroenterology 06/07/20 [place] [address] [address] Clinician Pulmonary Medicine 06/20/20 Diana Coppola MD [address] [address] Internal Medicine 03/22/25 documented as of this encounter
--- OUTSIDE RECORDS SUMMARY | 2025-03-31 13:01 | XMS_ITS | Encounter Summary ---
Author Organization [facility] Address [address] [place] [address] Care Team Providers Care Brick Sorter Name Role Phone Jace Blake MD Primary Care Provider [phone] Provider, Rachid GARCIA Unavailable Unavaila Andres Topete MD Unavailable [phone] Aki Ross MD Unavailable [phone] Ursula Boo MD Unavailable Rocio Youssef PA-C Unavailable Emeterio Valencia MD Unavailable Diana Coppola MD Unavailable Encounter Details Date Type Department Care Team (Late st Contact Info) Description 07/17/2020 Scanned Document [facility] [address] [place] [address] Ursula Boo MD [address] [place] [phone] Social History Tobacco Use Types Packs/Day [...] 10:00 AM EDT Office Visit [facility] Heart & Vascular [place] 45 [facility] 102 [place] [phone] Aki Ross MD [address] [place] [address] 102 [place] [address] 05/11/2025 1:40 PM EDT Office Visit [facility] Dermatology [place] 35 [place] [address] Nico Bailey MD [address] [place] [address] documented as of this encounter Visit Diagnoses Not on filedocumented in this encounter Additional Health Concerns Infection Onset Date Last Indicated Resolved Time R/O Gastrointestinal Infection 03/22/2025 03/22/2025 03/23/2025 10:28 PM EDT documented as of this encounter Care Teams Brick Sorter Relationship Specialty Start Date End Date Jace Blake MD [address] [place] [address] PCP - General Psychiatry, General 05/04/17 ProviderRachid MD 04/27/17 [place] [address] [place] [address] Chain Saw Mechanic Cardiology 07/08/19 Aki Ross MD [address] [address] Primary Chain Saw Mechanic Cardiovascular Disease 07/08/19 Ursula Boo MD [address] [address] Gastroenterology 06/07/20 Rocio Youssef PA-C [address] [address] Physician Er Manager Gastroenterology 06/07/20 Emeterio Valencia MD [address] [address] Clinician Pulmonary Medicine 06/20/20 Diana Coppola MD [address] [address] Internal Medicine 03/22/25 documented as of this encounter
--- OUTSIDE RECORDS SUMMARY | 2025-03-31 13:01 | XMS_ITS | Encounter Summary ---
Author Organization [facility] Address [address] [place] [address] Care Team Providers Care Trucking Contractor Name Role Phone Miguel Angel Blakey Primary Care Provider [phone] Encounter Details Date Type Department Care Team (Late st Contact Info) Description 10/24/2024 Scanned Document INTERFACE DEFAULT [address] [place] [address] System, Provider Not In Social History Tobacco [...] Follow Up Neuromuscular Medicine at [address] [address] Silvestre Maldonado MD 800 [place] [address] 07/19/2025 12:20 PM EDT Follow Up Congestive Heart Failure Program at 800 [facility] [address] [address] Diana Coppola MD 800 [place] [phone] 10/05/2025 12:30 PM EST Appointment P[facility] LAB[facility]ATORY - [address] [address] Aparna Chang MD [address] [place] [phone] Hallway, Pft Walk 10/05/2025 1:00 PM EST Appointment [facility] - [address] [address] Aparna Chang MD [address] [place] [phone] 1, Pft Procedure Room 10/05/2025 2:00 PM EST Office Visit [facility] [address] [phone] Aparna Chang MD [address] [place] [phone] documented as of this encounter Visit Diagnoses Not on filedocumented in this encounter Additional Health Concerns Assessment Noted Time PHQ-9 Depression Total Score: 0 03/16/20 24 10:01 AM EDT documented as of this encounter Care Teams Trucking Contractor Relationship Specialty Start Date End Date Jace Blake DO [address] [place] [address] PCP - General Family Medicine 08/01/14 documented as of this encounter
--- OUTSIDE RECORDS SUMMARY | 2025-03-31 13:01 | XMS_ITS | Encounter Summary ---
Author Organization [facility] Address [address] [place] [phone] Care Team Providers Care Billet Header Name Role Phone Miguel Angel Blakey Primary Care Provider [phone] Encounter Details Date Type Department Care Team (Late st Contact Info) Description 05/04/2019 Scanned Document Neurosurgery at [address] [place] [address] Narda Candelaria PA [address] [place] [phone] Social History Tobacco Use Types Packs/Day Years [...] EDT Follow Up Neuromuscular Medicine at [address] [phone] Silvestre Maldonado MD [address] [place] [phone] 07/19/2025 12:20 PM EDT Follow Up Congestive Heart Failure Program at 800 [facility] [address] [place] [address] Diana Coppola MD 800 [place] [address] 10/05/2025 12:30 PM EST Appointment P[facility] LABORATORY - [address] [address] Aparna Chang MD [address] [place] [phone] Hallway, Pft Walk 10/05/2025 1:00 PM EST Appointment [facility] - [address] [place] [address] Aparna Chang MD [address] [place] [phone] 1, Pft Procedure Room 10/05/2025 2:00 PM EST Office Visit [facility] [address] [phone] Aparna Chang MD [address] [place] [phone] documented as of this encounter Visit Diagnoses Not on filedocumented in this encounter Care Teams Billet Header Relationship Specialty Start Date End Date Jace Blake DO [address] [place] [address] PCP - General Family Medicine 08/01/14 documented as of this encounter
--- OUTSIDE RECORDS SUMMARY | 2025-03-31 13:01 | XMS_ITS | Encounter Summary ---
Author Organization [facility] Address [address] [place] [address] Care Team Providers Care Military Professional Name Role Phone Jace Blake MD Primary Care Provider Provider, Rachid GARCIA Unavailable Unavaila Andres Topete MD Unavailable [phone] Aki Ross MD Unavailable [phone] Ursula Boo MD Unavailable Rocio Youssef PA-C Unavailable [phone] Emeterio Valencia MD Unavailable Diana Coppola MD Unavailable Encounter Details Date Type Department Care Team (Late st Contact Info) Description 07/25/2020 Scanned Document [facility] [address] [place] [address] Ursula Boo MD [address] [place] [phone] Social History Tobacco Use Types Packs/Day [...] Description 05/04/2025 10:00 AM EDT Office Visit [facility] Heart & Vascular [place] 45 [facility] 102 [place] [phone] Aki Ross MD [address] [place] [address] 102 [place] [address] 05/11/2025 1:40 PM EDT Office Visit [facility] Dermatology [place] 35 [place] [address] Nico Bailey MD [address] [place] [address] documented as of this encounter Visit Diagnoses Not on filedocumented in this encounter Additional Health Concerns Infection Onset Date Last Indicated Resolved Time R/O Gastrointestinal Infection 03/22/2025 03/22/2025 03/23/2025 10:28 PM EDT documented as of this encounter Care Teams Military Professional Relationship Specialty Start Date End Date Jace Blake MD [address]8 [place] [address] PCP - General Psychiatry, General 05/04/17 ProviderRachid MD 04/27/17 [place] [address] [place] [address] Solid Waste Truck Driver Cardiology 07/08/19 Aki Ross MD [address] [address] Primary Solid Waste Truck Driver Cardiovascular Disease 07/08/19 Ursula Boo MD [address] [address] Gastroenterology 06/07/20 Rocio Youssef PA-C [address], [place] [address] Physician Rn Registry Gastroenterology 06/07/20 Emeterio Valencia MD [address] [address] Clinician Pulmonary Medicine 06/20/20 Diana Coppola MD [address] [address] Internal Medicine 03/22/25 documented as of this encounter
--- OUTSIDE RECORDS SUMMARY | 2025-03-31 13:01 | XMS_ITS | Encounter Summary ---
Author Organization [facility] Address [address] [place] [address] Care Team Providers Care Robotics Technician Name Role Phone Jace Blake MD Primary Care Provider Provider, Rachid GARCIA Unavailable Unavaila Andres Topete MD Unavailable [phone] Aki Ross MD Unavailable [phone] Ursula Boo MD Unavailable Rocio Youssef PA-C Unavailable [phone] Emeterio Valencia MD Unavailable Diana Coppola MD Unavailable Encounter Details Date Type Department Care Team (Late st Contact Info) Description 08/06/2020 Scanned Document [facility] [address] [place] [address] Ursula Boo MD [address] [place] [phone] Social History Tobacco Use Types Packs/Day [...] Former[facility] Heart & Vascular [place] 45 [facility] 102 [place] [phone] Aki Ross MD [address] [place] [address] 102 [place] [address] 05/11/2025 1:40 PM EDT Office Visit [facility] Dermatology [place] 35 [place] [address] Nico Bailey MD [address] [place] [address] documented as of this encounter Visit Diagnoses Not on filedocumented in this encounter Additional Health Concerns Infection Onset Date Last Indicated Resolved Time R/O Gastrointestinal Infection 03/22/2025 03/22/2025 03/23/2025 10:28 PM EDT documented as of this encounter Care Teams Robotics Technician Relationship Specialty Start Date End Date Jace Blake MD [address]8 [place] [address] PCP - General Psychiatry, General 05/04/17 ProviderRachid MD 04/27/17 [place] [address] [place] [address] Tourist Agent Cardiology 07/08/19 Aki Ross MD [address] [address] Primary Tourist Agent Cardiovascular Disease 07/08/19 Ursula Boo MD [address] [address] Gastroenterology 06/07/20 Rocio Youssef PA-C [address], [place] [address] Physician Line Palletizer Gastroenterology 06/07/20 Emeterio Valencia MD [address] [address] Clinician Pulmonary Medicine 06/20/20 Diana Coppola MD [address] [address] Internal Medicine 03/22/25 documented as of this encounter
--- OUTSIDE RECORDS SUMMARY | 2025-03-31 13:01 | XMS_ITS | Encounter Summary ---
Author Organization [facility] Address [address] [place] [address] Care Team Providers Care Metal Reclamation Kettle Tender Name Role Phone Jace Blake MD Primary Care Provider [phone] Provider, Rachid GARCIA Unavailable Unavaila Andres Topete MD Unavailable [phone] Aki Ross MD Unavailable [phone] Ursula Boo MD Unavailable Rocio Youssef PA-C Unavailable [phone] Emeterio Valencia MD Unavailable Diana Coppola MD Unavailable Encounter Details Date Type Department Care Team (Late st Contact Info) Description 10/09/2023 Scanned Document [facility] [place] [address] [place] [phone] Provider, Tom, 193 [place] [address] Social History Tobacco Use Types Packs/Day Years [...] Visit [facility] [place] [address] [phone] Aki Ross MD [address] [place] [address] 05/11/2025 1:40 PM EDT Office Visit [facility] Dermatology [place] 35 [place] [phone] Nico Bailey MD [address] [place] [address] documented as of this encounter Visit Diagnoses Not on filedocumented in this encounter Additional Health Concerns Infection Onset Date Last Indicated Resolved Time R/O Gastrointestinal Infection 03/22/2025 03/22/2025 03/23/2025 10:28 PM EDT documented as of this encounter Care Teams Metal Reclamation Kettle Tender Relationship Specialty Start Date End Date Jace Blake MD 1158 [place] [address] PCP - General Psychiatry, General 05/04/17 Provider, MD Rachid 04/27/17 Andres Lakhani MD [address] [place] [address] Call Center Representative Cardiology 07/08/19 Aki Ross MD [address] [place] [address] Primary Call Center Representative Cardiovascular Disease 07/08/19 Ursula Boo MD [address] [place] [address] [address] Gastroenterology 06/07/20 Rocio Youssef PA-C [address] [place] [address] Physician Production Expert Gastroenterology 06/07/20 Emeterio Valencia MD [address] [place] [address] Clinician Pulmonary Medicine 06/20/20 Diana Coppola MD [address] [place] [address] Internal Medicine 03/22/25 documented as of this encounter
--- OUTSIDE RECORDS SUMMARY | 2025-03-31 13:01 | XMS_ITS | Encounter Summary ---
Author Organization [facility] Address [address] [place] [phone] Care Team Providers Care Summons Server Name Role Phone Blake, Gary Primary Care Provider [phone] Encounter Details Date Type Department Care Team (Latest Contact Info) Description 06/24/2019 Transcribed Orders [facility] [address] [place] [address] Kenya Cortez MD [address] [place] [phone] Acquired polyneuropathy (HC Code) (Primary Dx); [...] Care Team ( st Contact Info) Description 06/07/2025 10:30 AM EDT Follow Up Neuromuscular Medicine at [address] [facility] 800 [place], [place] [phone] Silvestre Maldonado MD 800 [place] [address] 07/19/2025 12:20 PM EDT Follow Up Congestive Heart Failure Program at [address] [facility] [address] [address] Diana Coppola MD 800 [place] [address] 10/05/2025 12:30 PM EST Appointment PUL[facility] LABORATORY - [address] [address] Aparna Chang MD [address] [place] [phone] Hallway, Pft Walk 10/05/2025 1:00 PM EST Appointment [facility] - [address] [address] Aparna Chang MD [address] [place] [phone] 1, Pft Procedure Room 10/05/2025 2:00 PM EST Office Visit [facility] [address] [phone] Aparna Chang MD [address] [place] [phone] documented as of this encounter Procedures [...] analytical performance characteristics have been determined by [facility] [place], [place]. It has not been cleared or approved by the U.S. Food and Drug Administration. This assay has been validated pursuant to the CLIA regulations and is used for clinical purposes. Test Performed at: [facility] [place] [address] [place], [place] ??[id number] Teodoro Shore M.D., Ph.D.,Director of Laboratories Blood Venipuncture / Unknown 06/24/2019 12:54 PM EDT 06/24/2019 1:52 PM EDT us Kenya Cortez MD LAB BLOOD ORDERABLES Final Resul t [facility] * Vitamin B12 (06/24/2019 12:54 PM EDT) Vitamin B12 880 232-1,245 pg/mL 06/24/2019 2:36 PM EDT [facility] Comment: As of 2019, this assay is now being performed on the [employer] Melyssa 8000. ??Please note the change in reference range. Blood Venipuncture / Unknown 06/24/2019 12:54 PM EDT 06/24/2019 1:52 PM EDT us Kenya Cortez MD LAB BLOOD ORDERABLES Final Resul t Performing Organization Address [facility] de Phone Number [facility] [address] [place] [address] * Immunoglobulin M (06/24/2019 12:54 PM EDT) Immunoglobulin M 190 35 - 263 mg/dL 06/24/2019 4:42 PM EDT [facility] Blood Venipuncture / Unknown 06/24/2019 12:54 PM EDT 06/24/2019 1:52 PM EDT us Kenya Cortez MD LAB BLOOD ORDERABLES Final Resul t Performing Organization Address [facility] de Phone Number [facility] [address] [place] [address] * Immunoglobulin G (06/24/2019 12:54 PM EDT) Immunoglobulin G 1,260 768-1,632 mg/dL 06/24/2019 4:42 PM EDT [facility] Blood Venipuncture / Unknown 06/24/2019 12:54 PM EDT 06/24/2019 1:52 PM EDT Result Benedict Cortez MD LAB BLOOD ORDERABLES Final Resul t Performing Organization Address [facility] de Phone Number [facility] [address] [place] [address] * Immunoglobulin A (06/24/2019 12:54 PM EDT) Immunoglobulin A 372 68 - 408 mg/dL 06/24/2019 4:42 PM EDT [facility] Blood Venipuncture / Unknown 06/24/2019 12:54 PM EDT 06/24/2019 1:52 PM EDT us Kenya Cortez MD LAB BLOOD ORDERABLES Final Resul t Performing Organization Address [facility] de Phone Number [facility] [address] [place] [address], [facility] [phone] documented in this encounter Visit Diagnoses Diagnosis Acquired polyneuropathy- Primary Unspecified hereditary and idiopathic peripheral neuropathy Neuropathy (HC Code) Mononeuritis of unspecified site documented in this encounter Care Teams Summons Server Relationship Specialty Start Date End Date Jace Blake DO [address] [place] [address] PCP - General Family Medicine 08/01/14 documented as of this encounter
--- OUTSIDE RECORDS SUMMARY | 2025-03-31 13:01 | XMS_ITS | Encounter Summary ---
Author Organization Formerly [facility] Address [address] [place] [address] Care Team Providers Care Water Filterer Helper Name Role Phone Jace Blake MD Primary Care Provider [phone] Provider, Rachid GARCIA Unavailable Unavaila Andres Topete MD Unavailable [phone] Aki Ross MD Unavailable [phone] Ursula Boo MD Unavailable Rocio Youssef PA-C Unavailable Emeterio Valencia MD Unavailable Diana Coppola MD Unavailable Encounter Details Date Type Department Care Team (Late st Contact Info) Description 02/24/2020 Scanned Document GENERIC EXTERNAL DATA DEPARTMENT Provider, External, [address] [place] [address] Social History Tobacco Use Types Packs/Day Years [...] Description 05/04/2025 10:00 AM EDT Office Visit [facility] Heart & V[facility] [place] [address] [phone] Aki Ross MD [address] [place] [address] 05/11/2025 1:40 PM EDT Office Visit [facility] Dermatology [place] 35 [place] [address] Nico Bailey MD [address] [place] [address] documented as of this encounter Visit Diagnoses Not on filedocumented in this encounter Additional Health Concerns Infection Onset Date Last Indicated Resolved Time R/O Gastrointestinal Infection 03/22/2025 03/22/2025 03/23/2025 10:28 PM EDT documented as of this encounter Care Teams Water Filterer Helper Relationship Specialty Start Date End Date Jace Blake MD [address] [place] [address] PCP - General Psychiatry, General 05/04/17 ProviderRachid MD 04/27/17 Andres Lakhani MD [address] [place] [address] Pool Lifeguard Cardiology 07/08/19 Aki Ross MD [address] [place] [address] Primary Pool Lifeguard Cardiovascular Disease 07/08/19 Ursula Boo MD [address] [place] [address] Gastroenterology 06/07/20 Rocio Youssef PA-C [address] [place] [address] Physician Research Assistant Member Gastroenterology 06/07/20 Emeterio Valencia MD [address] [place] [address] Clinician Pulmonary Medicine 06/20/20 Diana Coppola MD [address] [address] Internal Medicine 03/22/25 documented as of this encounter
--- OUTSIDE RECORDS SUMMARY | 2025-03-31 13:01 | XMS_ITS | Encounter Summary ---
Author Organization [facility] Address [address] [place] [address] Care Team Providers Care Drafter Commercial Name Role Phone Jace Blake MD Primary Care Provider [phone] Provider, Rachid GARCIA Unavailable Unavaila Andres Topete MD Unavailable [phone] Aki Ross MD Unavailable [phone] Ursula Boo MD Unavailable [phone] Rocio Youssef PA-C Unavailable Emeterio Valencia MD Unavailable Diana Coppola MD Unavailable Encounter Details Date Type Department Care Team (Late st Contact Info) Description 08/29/2020 Scanned Document [facility] [address] [place] [address] Ursula Boo MD [address] [place] [phone] Social History Tobacco Use Types Packs/Day [...] Description 05/04/2025 10:00 AM EDT Office Visit [facility] Heart & [facility] [place] 45 [facility] [address] [place] [phone] Aki Ross MD [address] [place] [address] [address] [place] [address] 05/11/2025 1:40 PM EDT Office Visit [facility] D[facility]ology [place] 35 [place] [address] Nico Bailey MD [address] [place] [address] documented as of this encounter Visit Diagnoses Not on filedocumented in this encounter Additional Health Concerns Infection Onset Date Last Indicated Resolved Time R/O Gastrointestinal Infection 03/22/2025 03/22/2025 03/23/2025 10:28 PM EDT documented as of this encounter Care Teams Drafter Commercial Relationship Specialty Start Date End Date Jace Blake MD [address] [place] [address] PCP - General Psychiatry, General 05/04/17 ProviderRachid MD 04/27/17 [place] [address] [place] [address] Transport Pilot Cardiology 07/08/19 Aki Ross MD [address] [address] Primary Transport Pilot Cardiovascular Disease 07/08/19 Ursula Boo MD [address] [address] Gastroenterology 06/07/20 Rocio Youssef PA-C [address] [address] Physician Molecular Technologist Gastroenterology 06/07/20 Emeterio Valencia MD [address] [address] Clinician Pulmonary Medicine 06/20/20 Diana Coppola MD [address] [address] Internal Medicine 03/22/25 documented as of this encounter
--- OUTSIDE RECORDS SUMMARY | 2025-03-31 13:01 | XMS_ITS | Encounter Summary ---
Author Organization [facility] Address [address] [place] [phone] Care Team Providers Care Lacquer Coater Name Role Phone Miguel Angel Blakey Primary Care Provider [phone] Encounter Details Date Type Department Care Team (Late st Contact Info) Description 05/04/2019 Scanned Document Neurosurgery at [address] [place] [address] Narda Candelaria PA [address] [place] [phone] Social History Tobacco Use Types Packs/Day Years [...] EDT Follow Up Neuromuscular Medicine at [address] [phone] Silvestre Maldonado MD [address] [place] [phone] 07/19/2025 12:20 PM EDT Follow Up Congestive Heart Failure Program at 800 [facility] [address] [place] [address] Diana Coppola MD 800 [place] [address] 10/05/2025 12:30 PM EST Appointment [facility] - [address] [address] Aparna Chang MD [address] [place] [phone] Hallway, Pft Walk 10/05/2025 1:00 PM EST Appointment [facility] - [address] [place] [address] Aparna Chang MD [address] [place] [phone] 1, Pft Procedure Room 10/05/2025 2:00 PM EST Office Visit [facility] [address] [phone] Aparna Chang MD [address] [place] [phone] documented as of this encounter Visit Diagnoses Not on filedocumented in this encounter Care Teams Lacquer Coater Relationship Specialty Start Date End Date Jace Blake DO [address] [place] [address] PCP - General Family Medicine 08/01/14 documented as of this encounter
--- OUTSIDE RECORDS SUMMARY | 2025-03-31 13:01 | XMS_ITS | Encounter Summary ---
Author Organization Formerly [facility] Address [address] [place] [address] Care Team Providers Care Maintenance Analyst Name Role Phone Jace Blake MD Primary Care Provider Provider, Rachid GARCIA Unavailable Unavaila Andres Topete MD Unavailable Aki Ross MD Unavailable [phone] Ursula Boo MD Unavailable [phone] Rocio Youssef PA-C Unavailable Emeterio Valencia MD Unavailable Diana Coppola MD Unavailable Reason for Visit * Reason Comments Other Encounter Details Date Type Department Care Team ([facility] st Contact Info) Description 06/14/2020 Telephone [facility] Heart & [facility] [place] [address] [address] Aki Ross MD [address] [place] [address] Other Social History Tobacco Use Types [...] in the notes that are scanned into [employer] and patient reported this toRN also. Advised [...] she had an episode of syncope at [facility] a few weeks back and was [...] 10:59 AM EDT Pt called stating her Terminal Manager put her on Oxygen for during the day and she states that last night after she showered she felt a burning pressure in her chest. So she checked her HR with the reader and it was 40bpm. she's concerned because her pacer is set at 60 and she's unsure what she should do. Please Advise [phone] * Telephone Encounter - April Souza - 06/14/2020 9:51 AM EDT Pt called stating her Terminal Manager nut her on Oxygen for during the day and she states that last night after she showed she felt a burning pressure in her chest last night and she checked her HR with he reader and it was 40. she's concerned because her pacer is set at 60 and she's unsure what she should do. Please Advise [phone] documented in this encounter Plan of Treatment Upcoming Encounters Date Type Department Care Team (Late st Contact Info) Description 05/04/2025 10:00 AM EDT Office Visit [facility] Heart & [facility] [place] [address] [address] Aki Ross MD [address] [place] [address] 05/11/2025 1:40 PM EDT Office Visit [facility] Dermatology [place] 35 [place] [phone] Nico Bailey MD [address] [place] [address] documented as of this encounter Visit Diagnoses Not on filedocumented in this encounter Additional Health Concerns Infection Onset Date Last Indicated Resolved Time R/O Gastrointestinal Infection 03/22/2025 03/22/2025 03/23/2025 10:28 PM EDT documented as of this encounter Care Teams Maintenance Analyst Relationship Specialty Start Date End Date Jace Blake MD [address] [place] [address] PCP - General Psychiatry, General 05/04/17 Rachid Robles MD 04/27/17 Andres Lakhani MD [address] [place] [address] Student Development Specialist Cardiology 07/08/19 Aki Ross MD [address] [place] [address] Primary Student Development Specialist Cardiovascular Disease 07/08/19 Ursula Boo MD [address] [place] [phone] Gastroenterology 06/07/20 Rocio Youssef PA-C [address] [facility] 4 [place] [address] Physician Precast Concrete Products Installer Gastroenterology 06/07/20 Emeterio Valencia MD [address] [place] [address]80 Clinician Pulmonary Medicine 06/20/20 Diana Coppola MD [address] [address] Internal Medicine 03/22/25 documented as of this encounter
--- OUTSIDE RECORDS SUMMARY | 2025-03-31 13:01 | XMS_ITS | Encounter Summary ---
Author Organization [facility] Address [address] [place] [address] Care Team Providers Care Showcase Trimmer Name Role Phone Jace Blake MD Primary Care Provider Provider, Rachid GARCIA Unavailable Unavaila Andres Topete MD Unavailable [phone] Aki Ross MD Unavailable [phone] Ursula Boo MD Unavailable [phone] Rocio Youssef PA-C Unavailable [phone] Emeterio Valencia MD Unavailable Diana Copopla MD Unavailable Encounter Details Date Type Department Care Team (Late st Contact Info) Description 10/30/[address] [facility] Dermatology [place] [address] [place] [address] Nico Bailey MD [address] [place], [place] [phone] Social History Tobacco Use Types Packs/Day Years [...] [facility] [place] [address] [address] Aki Ross MD [address] [place] [address] 05/11/2025 1:40 PM EDT Office Visit [facility] Dermatology [place] [address] [place] [address] Nico Bailey MD [address] [place] [address] documented as of this encounter Visit Diagnoses Not on filedocumented in this encounter Additional Health Concerns Infection Onset Date Last Indicated Resolved Time R/O Gastrointestinal Infection 03/22/2025 03/22/2025 03/23/2025 10:28 PM EDT documented as of this encounter Care Teams Showcase Trimmer Relationship Specialty Start Date End Date Jace Blake MD [address] [place] [address] PCP - General Psychiatry, General 05/04/17 Provider, MD Rachid 04/27/17 Andres Lakhani MD [address] [place] [address] Museum Preparator Cardiology 07/08/19 Aki Ross MD [address] [place] [address] Primary Museum Preparator Cardiovascular Disease 07/08/19 Ursula Boo MD [address] [address] Gastroenterology 06/07/20 Rocio Youssef PA-C [address] [place] [address] Physician Rug Cutter Gastroenterology 06/07/20 Emeterio Valencia MD [address] [place] [address] Clinician Pulmonary Medicine 06/20/20 Diana Coppola MD [address] [place] [address] Internal Medicine 03/22/25 documented as of this encounter
--- OUTSIDE RECORDS SUMMARY | 2025-03-31 13:01 | XMS_ITS | Encounter Summary ---
Author Organization [facility] Address [address] [place] [address] Care Team Providers Care Aquaculture Director Name Role Phone Jace Blake MD Primary Care Provider Provider, Rachid GARCIA Unavailable Unavaila Andres Topete MD Unavailable [phone] Aki Ross MD Unavailable [phone] Ursula Boo MD Unavailable Rocio Youssef PA-C Unavailable Emeterio Valencia MD Unavailable Diana Coppola MD Unavailable Encounter Details Date Type Department Care Team (Late st Contact Info) Description 08/17/2020 Scanned Document [facility] [address] [place] [address] Eva Suazo MD [address] [place] [phone] Social History Tobacco Use Types Packs/Day [...] [facility] Heart & Vascular [place] 45 [facility] [address] [place] [phone] Aki Ross MD [address] [place] [address] [address] [place], [place] [phone] 05/11/2025 1:40 PM EDT Office Visit [facility] Dermatology [place] 35 [place] [address] Nico Bailey MD [address] [place] [address] documented as of this encounter Visit Diagnoses Not on filedocumented in this encounter Additional Health Concerns Infection Onset Date Last Indicated Resolved Time R/O Gastrointestinal Infection 03/22/2025 03/22/2025 03/23/2025 10:28 PM EDT documented as of this encounter Care Teams Aquaculture Director Relationship Specialty Start Date End Date Jace Blake MD [facility]8 [place] [address] PCP - General Psychiatry, General 05/04/17 ProviderRachid MD 04/27/17 Andres Lakhani MD [address] [place] [address] Distribution Agent Cardiology 07/08/19 Aki Ross MD [address] [address] Primary Distribution Agent Cardiovascular Disease 07/08/19 Ursula Boo MD [address] [address] Gastroenterology 06/07/20 Rocio Youssef PA-C [address] [place] [address] Physician Milling Operator Gastroenterology 06/07/20 Emeterio Valencia MD [address] [address] Clinician Pulmonary Medicine 06/20/20 Diana Coppola MD [address] [address] Internal Medicine 03/22/25 documented as of this encounter
--- OUTSIDE RECORDS SUMMARY | 2025-03-31 13:01 | XMS_ITS | Clinical Summary ---
Author Organization [address] Address [address] [place] [phone] Phone Care Team Providers Care Concrete Batcher Name Role Phone Jace Blake DO Primary Care Provider [phone] Allergies No known active allergies Medications multivitamin [...] tabletIndications: Chronic systolic heart failure (HC Code) Take 1 tablet (100 mg [...] Active Additional Information Patient not taking.Reported on 12/28/2024 empagliflozin (JARDIANCE) 10 mg tabletIndications: Chronic systolic heart failure (HC Code) Take 1 tablet (10 mg total) by mouth daily. 90 tablet 3 03/16/20 24 Active losartan (COZAAR) 25 mg tabletIndications: Chronic systolic heart failure (HC Code) Take 1 tablet (25 mg total) by mouth daily. 90 tablet 3 03/16/20 24 Active umeclidinium-vilan teroL (ANORO ELLIPTA) 62.5-25 mcg/actuation blister powder for inhalation Inhale 1 puff into the lungs daily. 60 each 3 10/06/20 24 Active Miscellaneous Medical Supply Brittani burger. [...] tingling. 60 g 5 12/09/19 25 Active furosemide (LASIX) 20 mg tablet 1 tablet (20 mg total). Taking 1 tablet daily per pt Active spironolactone (ALDACTONE) 25 mg tablet Take 0.5 tablets (12.5 mg total) by mouth daily. 90 tablet 3 12/28/19 25 Active apixaban (ELIQUIS) 5 mg tabletIndications: Dilated cardiomyopathy (HC Code),Longstanding persistent atrial fibrillation (HC Code) Take 1 tablet (5 mg total) by mouth 2 (two) times daily. 90 tablet 1 03/06/20 25 Active apixaban (ELIQUIS) 5 mg tabletIndications: Dilated cardiomyopathy (HC Code),Longstanding persistent atrial fibrillation (HC Code) Take 1 tablet (5 mg total) by mouth 2 (two) times daily. 90 tablet 1 10/24/20 24 025 Discontin ued(!Reor diane (No Cancel Msg)) Active Problems Problem Noted Date Diagnosed Date Shortness of breath 05/28/2023 Stage 3 chronic kidney disease 05/28/2023 Dilated bile duct 05/28/2023 Restless legs 04/08/2023 [...] The patient's plan is to return [place] permanently and they hope to travel in February if her physical condition allows. We discussed issues concerning travel by plane or car. She will see her financial services manager at [place] as soon as she can when she [...] plane or car. She will see her financial services manager at [place] as soon as she can when she returns. In the interim if she has other issues she may call here to be seen prior to leaving. Interstitial lung disease 10/23/2021 Overview (05/28/2023): Last Assessment & Plan: Evaluated at [place] and her interstitial lung disease was not felt to be significantly contributing to her dyspnea and other clinical conditions. Some follow-up CT scans and pulmonary function studies were recommended. Last Assessment & Plan: Evaluated at [place] and her interstitial lung disease was not [...] me and I will check Dilated cardiomyopathy 10/23/2020 Overview (05/28/2023): Last Assessment & Plan: Left [...] of repeat attempted coronary sinus lead for GEOGRAPHIC AREA INTELLIGENCE OFFICER. This was unsuccessful in the past. She is to discuss and review this option with [facility] when she returns there late February [...] a day. Chronic systolic heart failure 10/03/2020 Pulmonary hypertension 08/31/2020 Overview (08/31/2020): Added automatically from request for surgery [id number] Abnormal liver function tests 08/30/2020 Overview (05/28/2023): [...] has been uncertain. Has seen rheumatology of [place]. Last Assessment & Plan: To follow-up rheumatology status up [place]. Apparently has lupus and Sjogren's syndrome. Last Assessment & Plan: Diagnoses has been uncertain. Has seen rheumatology of [place]. Benign essential hypertension 02/06/2019 Overview (05/28/2023): Last [...] neurology and/or neurosurgery for back issues. 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 Routinely follows through [facility] financial services manager. Interrogated here with recent syncopal episode. Normal function. Occasional mode switching in atrial high rates without ventricular high rates, 1.4% mode switching.? Ventricular runs. No tracings of that available for my review. We will continue to monitor remotely for now through her up [facility] financial services manager. Last Assessment & Plan: Pacemaker dependent. Medtronic device. Follows remotely through [facility]. Last Assessment & Plan: Dual-chamber Medtronic pacemaker. Routinely follows through [facility] financial services manager. Interrogated here with recent syncopal episode. Normal function. Occasional mode switching in atrial high rates without ventricular high rates, 1.4% mode switching.? Ventricular runs. No tracings of that available for my review. We will continue to monitor remotely for now through her [facility] financial services manager. Last Assessment & Plan: Mild to moderate [...] Cardiac MRI did not suggest ischemia at [place]. No definite angina. Continue medical therapy and control of risk factors. See discussion concerning lipids. Last Assessment & Plan: Mild to moderate by cardiac catheterization 2015 and no ischemia by 2018 stress test. Cardiac MRI did not suggest ischemia more recently. No anginal type symptoms. Continue long-term control of cardiovascular risk factors. No aspirin. On Eliquis. Coronary arteriosclerosis in solomon artery 03/01 Cardiac pacemaker in situ 07/02/2017 S/P biventricular cardiac pacemaker procedure S/P ablation of atrial fibrillation 04/30/2017 manager long term care current use of anticoagulant therapy 0 04/30/2017 [...] will follow with vascular surgery up at [place]. Last Assessment & Plan: Stable left carotid stenosis by recent ultrasound. No TIA or strokelike symptoms or acute findings on head CT. Continue long-term control of cardiovascular risk factors and follow with her other physicians. 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 Will get records from Hem/Onc [facility] (Dr. Escalera at [facility] in [place], [place]). Last Assessment & Plan: GI evaluation [...] dominant nodule in the right lobe. A-fib Encounters Date Type Department Care Team Description 03/06/2025 Refill Congestive Heart Failure Program at [address] [facility] [address] [facility] [address] [place] [address] Pao Steele APRN Medication Refill (Eliquis) 02/16/2025 9:00 AM EDT Ancillary Procedure EP [address] [address] Anand Gurrola APRN 02/16/2025 Orders Only EP [address] [address] Anand Gurrola APRN Encounter for interrogation of cardiac pacemaker (Primary Dx) from Last 3 Months Immunizations Name Administration Dates Next Due COVID-19, MODERNA 12Y+, 0.5 mL 01/19/2021,2020 COVID-19, MODERNA Booster, 0.25mL 11/26/2021, Influenza, high-dose, split virus, trivalent,(65Yr+),injectable, preservative free 07/17/2020 Influenza, injectable, quad with preservative 07/30/2021,09/11/2020,08/23/2019,09/12 Influenza, quad, adjuvanted, 0.5mL, preservative free 09/11/2020 Influenza, trivalent, inject able, contains preservative 08/15/2024,07/30/2021,09/12/2018 Influenza, unspecified formulation 07/17/2020,,10/04/2012 Pneumococcal conjugate PCV [...] Answer Date Recorded PHQ-2 Total Score 0 12/28/2024 Interpersonal Safety Answer Date Record ed Is [...] Sign Reading Time Taken Comments Blood Pressure 159/96 12/28/2024 10:50 AM EST Pulse 91 12/28/2024 10:50 AM EST Temperature 36.4 ??C (97.6 ??F) 12/28/2024 10:[address] Respiratory Rate 18 10/06/2024 2:14 PM EST Oxygen Saturation 94% 12/28/2024 10:50 AM EST Inhaled Oxygen Concentration - - Weight 94.6 kg (208 lb 8 oz) 12/28/2024 10:50 AM EST Height 182.9 cm (6') 12/28/2024 10:50 AM EST Body Mass Index 28.28 12/28/2024 10:50 AM EST Plan of Treatment Upcoming Encounters Date Type Department Care Team (Late st Contact Info) Description 06/07/2025 10:30 AM EDT Follow Up Neuromuscular Medicine at [address] [place] [phone] Silvestre Maldonado MD [address] [place] [phone] 07/19/2025 12:20 PM EDT Follow Up Congestive Heart Failure Program at [address] [place] [phone] Diana Coppola MD [address] [place] [phone] 10/05/2025 12:30 PM EST Appointment [facility] - [address] [address] Aparna Chang MD [address] [place] [phone] Kiki, Pft Walk 10/05/2025 1:00 PM EST Appointment [facility] - [address] [address] Aparna Chang MD [address] [place] [phone] 1, Pft Procedure Room 10/05/2025 2:00 PM EST Office Visit [facility] [address] [phone] Aparna Chang MD [address] [place] [phone] Health Maintenance Due Date Last Done Comments HIV screening 1961 Tetanus adult (Td q 10,TDAP once) 1968 Lipid disorder screening 1988 Osteoporosis screening (bone density) 2013 Shingles vaccine (Shingrix) (2 of 2 - Shingrix (RZV) 2 Dose Standard Series) 09/29/2021 07/30/2021 Influenza vaccine 07/24/2025 08/15/2024, , 08/24/2023, Additional history exists Lung Cancer Screening 02/09/2026 02/09/2025 , 11/05/2024, 03/11/2024, Additional history exists Diabetes screening 01/03/2028 01/03/2025, 0 07/16/2023, 06/05/2023, Additional history exists Colon cancer screening, Colonoscopy Discontinued 07/16/2020, 07/16/2020, 07/16/2020, Additional history exists Shingles vaccine (Zostavax) Discontinued 07/30/2021 Pneumococcal Vaccine (50+ years) Completed 05/27/2022, 04/23/2021, 09/11/2020, Additional history exists Hepatitis C screening Completed 06/15/2023 , 06/05/2023, 06/04/2023, Additional history exists RSV Immunization Completed 10/05/2023 Covid-19 vaccine series Completed 08/15/20, 10/20/2023, 09/01/2023, Additional history exists Breast cancer screening Discontinued Cervical cancer screening Discontinued Meningococcal Vaccine Aged Out No laura megan eligible based on patient's age to complete this topic Medical Devices Implanted Type Area Psychology Instructor Device Identifier Shelf Expiration Date Model / Serial / Lot Graft, Briiifuse 1 Cm X 5cm - [id number] Implanted:Qty: 2 on 05/12/2017 by Teodoro Hollingsworth MD at [place] [address] Graft Lumbar: Spine Lumbar MEDTRONIC () 06/07/2018 [id number] / [id number] / Surgiflo Hemostatic Matrix Kit - [id number] Implanted:Qty: 1 on 05/12/2017 by Teodoro Hollingsworth MD at [place] [address] Other-impla nt Lumbar: Spine Lumbar 05/22/2018 [id number] / / Description:combined with 20 00 units of thrombin- given to surgical site by Ngozi [facility] - [id number] Implanted:Qty: 1 on 05/12/2017 by Teodoro Hollingsworth MD at [place] [address] Other-impla nt Lumbar: Spine Lumbar MEDTRONIC () 01/13/2019 [id number] / [id number] / Surgiflo Hemostatic Matrix Kit - [id number] Implanted:Qty: 1 on 05/12/2017 by Teodoro Hollingsworth MD at [place] [address] Other-impla nt Left: Spine Lumbar 12/23/2018 [id number] / / Description:hemostatic matri x with 2000 units of thrombin. Peek Zeferino, 6.35 X 40mm - [id number] Implanted:Qty: 1 on 05/12/2017 by Teodoro Hollingsworth MD at [facility] [address] Zeferino Left: Spine Lumbar 10/01/2021 [id number] / / Description:Left L3-4 Peek Zeferino, 6.35 X 80mm - [id number] Implanted:Qty: 1 on 05/12/2017 by Teodoro Hollingsworth MD at [facility] [address] Zeferino Right: Spine Lumbar 07/28/2019 [id number] / / Description:Right L3-4, S1 Screw, Peek 6.5 X 50mm Legacy - [id number] Implanted:Qty: 4 on 05/12/2017 by Teodoro Hollingsworth MD at [place] [address] Screw Implant Lumbar: Spine Lumbar [id number] / / Screw, Peek 6.5 X 45mm Legacy - [id number] Implanted:Qty: 1 on 05/12/[address] [facility] [address] Screw Implant Lumbar: Spine Lumbar [id number] / / Set Screw - [id number] Implanted:Qty: 5 on 05/12/2017 by Teodoro Hollingsworth MD at [facility] [address] Screw Implant Lumbar: Spine Lumbar [id number] / / Pacemaker Procedures Procedure Name Priority Date/Time Associated Diagnosis Comments PACEMAKER INTERROGATION-REMOTE Routine 02/16/2025 8:58 AM EDT Encounter for interrogation of cardiac pacemaker BASIC METABOLIC PANEL Routine 01/03/2025 11:12 AM EST Chronic systolic heart failure (HC Code) CT CHEST WO IV CONTRAST HIGH RESOLUTION ([facility]) Routine 11/05/2024 1:16 PM EST ILD (interstitial lung disease) (HC Code) Chronic obstructive pulmonary disease, unspecified COPD type (HC Code) COLONOSCOPY (IMAGES) Routine 07/16/2020 9:19 AM EDT from Last 3 Months or Most Recently Relevant to Health Maintenance Results * Pacemaker Interrogation (02/16/2025 8:58 AM EDT) Anatomical Region Laterality Modality Chest Holter Monitor 01/16/2025 4:59 PM EST Narrative 01/16/2025 4:59 PM EST Note: Anand Gurrola - [id number]:03.974Z - Presenting rhythm ApVp Battery voltage stable. Lead function (sensing/pacing thresholds/impedance) trends stable and within acceptable range. <0.1% AF, on Eliquis 100% RV paced Procedure Note Anand Gurrola APRN - 02/16/2025 Note: Anand Gurrola - [id number]:59:03.974Z - Presenting rhythm ApVp Battery voltage stable. Lead function (sensing/pacing thresholds/impedance) trends stable andwithin acceptable range. <0.1% AF, on Eliquis 100% RV paced Anand Gurrola APRN CAR DEVICE INTER ORDERABLES Fi nal Result * Basic metabolic panel (01/03/2025 11:12 AM EST) Glucose 76 65 - 99 mg/dL [facility] Comment: ? Fasting reference interval BUN 9 7 - 25 mg/dL [facility] Creatinine 0.78 0.60 - 1.00 mg/dL [facility] eGFR (Creatinine) 79 > OR = 60 mL/min/1. 73m2 [facility] BUN/Creatinine Ratio SEE NOTE: (calc) [facility] Comment: ?? Not Reported: BUN and Creatinine are within ?? reference range. ? Sodium 139 135 - 146 mmol/L [facility] Potassium 4.2 3.5 - 5.3 mmol/L [facility] Chloride 101 98 - 110 mmol/L [facility] CO2 28 20 - 32 mmol/L [facility] Calcium 9.4 8.6 - 10.4 mg/dL [facility] Blood 01/03/2025 11:1 2 AM EST 01/03/2025 11:13 AM EST Narrative Resulting Agency Comment Performing Lab: ?Site ID: [id number] ?Name: [facility] ?Address: [address] [place] [phone] ?Director: Gosia Ness M.D. Diana Coppola MD LAB BLOOD ORDERABLES Final Resul t [facility] [address] [place] [address] * CT Chest wo IV Contrast High Resolution ([facility]) (11/05/2024 1:16 PM EST) Anatomical Region Laterality Modality Chest Computed Tomogra phy 11/07/2024 10:1 9 AM EST Impressions 11/07/2024 10:37 AM EST There has been an increase in the subpleural reticulation in the lower lungs. Bronchial wall thickening and peribronchial groundglass attenuation in right upper lobe and right middle lobe unchanged. [facility] Radiology Notify System Classification: Routine. Reported and signed by: Amelia Oneal MD [facility] Narrative 11/07/2024 10:[address] CHEST WO IV CONTRAST HIGH RESOLUTION ([facility]) ??Date: ??11/05/2024 1:16 PM INDICATION: Interstitial lung disease ILD. COMPARISON: CT CHEST WO IV CONTRAST HIGH RESOLUTION ([facility]) 2023-04-16 TECHNIQUE: Contiguous CT axial sections were [...] CT CHEST WO IV CONTRAST HIGH RESOLUTION ([facility]) Date:11/05/2024 1:16 PM INDICATION: Interstitial lung disease ILD. COMPARISON: CT CHEST WO IV CONTRAST HIGH RESOLUTION ([facility])2023-04-16 TECHNIQUE: Contiguous CT axial sections were obtained [...] lobe unchanged. [facility] Radiology Notify System Classification: Routine. Reported and signed by: Amelia Oneal MD [facility] Aparna Chang MD IMG CT ORDERABLES Fi nal Result * Colonoscopy (07/16/2020 9:19 AM EDT) Colonoscopy [facility] Patient Name: Kimberly Naylor ?Procedure Date: 07/16/2020 9:19 AM ?Date of : 1950 Age: 69 ? Gender: Female Admit Type: Outpatient ?[facility] #: [id number] Note Status: Aircraft Manager Override ?Attending MD: Ursula Boo , Procedure: ? Colonoscopy Indications: ? Iron deficiency anemia Providers: ? Ursula Boo Medicines: ? Propofol per Anesthesia Complications: ? No immediate complications. Requesting Provider: Procedure: ? Pre-Anesthesia Assessment: ? - ASA Grade Assessment: III - A patient with severe ? systemic disease. ? After obtaining informed consent, the scope was passed ? under direct vision. Throughout the procedure, the ? patient's blood pressure, pulse, and oxygen saturations ? were monitored continuously.The colonoscopy was ? performed without difficulty. The patient tolerated the ? procedure well. The quality of the bowel preparation was ? good. The Colonoscope was introduced through the anus ? and advanced to the terminal ileum, with identification ? of the appendiceal orifice and IC valve. ? Findings: ? The retroflexed view of the distal rectum and anal verge was normal and ? showed no anal or rectal abnormalities. ? A diminutive polyp was found in the transverse colon. The polyp was ? removed with a cold biopsy forceps. Resection and retrieval were ? complete. ? Four polyps were found in the rectum and sigmoid colon. The polyps were ? diminutive in size. These polyps were removed with a cold biopsy ? forceps. Resection and retrieval were complete. ? Impression: ?- The distal rectum and anal verge are normal on ? retroflexion view. ? - One diminutive polyp in the transverse colon, removed ? with a cold biopsy forceps. Resected and retrieved. ? - Four diminutive polyps in the rectum and in the ? sigmoid colon, removed with a cold biopsy forceps. ? Resected and retrieved. Recommendation: ?- follow up biopsies (1-2 weeks) ? Procedure Code(s): ?? --- Professional --- ? [address]1949, Colonoscopy, flexible; with biopsy, single or ? multiple Diagnosis Code(s): ?? --- Professional --- ? D12.3, Benign neoplasm of transverse colon (hepatic ? flexure or splenic flexure) ? K62.1, Rectal polyp ? D12.5, Benign neoplasm of sigmoid colon ? D50.9, Iron deficiency anemia, unspecified CPT copyright 2018 [employer]. All rights reserved. The codes documented in this report are preliminary and upon certified professional coder review may be revised to meet current compliance requirements. Joanie Boo MD Hazell Rajeev, 07/16/2020 9:26:10 AM This report has been signed electronically. Number of Addenda: 0 Note Initiated On: 07/16/2020 9:19 AM Estimated Blood Loss: ? Estimated blood loss: none. [facility] 07/16/2020 9:19 AM EDT us Provider Not In System GI PROCEDURE ORDERABLES E dited Result - Final [facility] from Last 3 Months or Most Recently Relevant to Health Maintenance Insurance MEDICARE [facility] MEDICARE [facility] MEDICARE [facility] MEDICARE [facility] Advance Directives * Full ACLS (Latest Code Status on File) Date Activated Date Inactivated Comments 05/15/2017 9:33 PM 05/18/2017 9:43 PM * Full ACLS Date Activated Date Inactivated Comments 05/12/2017 2:29 PM 05/14/2017 3:35 PM * Full Interventions Date Activated Date Inactivated Comments 08/07/2014 9:00 AM 08/09/2014 6:32 PM Care Teams Concrete Batcher Relationship Specialty Start Date End Date Jace Blake DO [address] [place] [phone] PCP - General Family Medicine 08/01/14
--- OUTSIDE RECORDS SUMMARY | 2025-03-31 13:01 | XMS_ITS ---
Author Organization [facility] Address [address] [place] [address] Care Team Providers Care Nc Machinist Name Role Phone Jace Blake MD Primary Care Provider Provider, Conversion Unavailable Unavaila Andres Topete MD Unavailable [phone] Aki Ross MD Unavailable [phone] Ursula Boo MD Unavailable Rocio Youssef PA-C Unavailable [phone] Emeterio Valencia MD Unavailable Diana Coppola MD Unavailable Active Problems Problem Noted Date [...] diastolic heart failure 04/16/2022 [facility]04[facility]16[facility]22[facility] 04/16/2022 Orthostatic hypotension 01/30/2022 [...] The patient's plan is to return up [place] permanently and they hope to travel in February if her physical condition allows. We discussed issues concerning travel by plane or car. She will see her commissary steward at [facility] as soon as she can when she returns. In the interim if she has other issues she may call here to be seen prior to leaving. Chronic renal impairment, stage 3a 10/23/2021 Overview (04/16/2022): Last Assessment & Plan: Labile creatinine values. Continue to follow with primary care physicians. Interstitial lung disease 10/23/2021 Overview (04/16/2022): Last Assessment & Plan: Evaluated at [facility] and her interstitial lung disease was not [...] Pacemaker dependent. Medtronic device. Follows remotely through [facility]. Last Assessment & Plan: Dual-chamber Medtronic pacemaker. Routinely follows through [facility] commissary steward. Interrogated here with recent syncopal episode. Normal function. Occasional mode switching in atrial high rates without ventricular high rates, 1.4% mode switching.? Ventricular runs. No tracings of that available for my review. We will continue to monitor remotely for now through her up [facility] commissary steward. Dilated cardiomyopathy 10/23/2020 Overview (07/15/2021): Last Assessment & Plan: Some recent left ventricular dysfunction. Some consideration of repeat attempted coronary sinus lead for TELEPHONE INFORMATION CLERK. This was unsuccessful in the past. She is to discuss and review this option with [facility] when she returns there late February of [...] & Plan: To follow-up rheumatology status up [place]. Apparently has lupus and Sjogren's syndrome. Autoimmune disorder 02/18/2019 Overview (04/16/2022): Last Assessment & Plan: Diagnoses has been uncertain. Has seen rheumatology of [facility]. History of depression 02/06/2019 Congestive heart failure [...] Neuropathy 10/06/2018 Neuropathy 09/29/2018 Coronary arteriosclerosis in [place] artery 03/01 Coronary artery disease invo lving [place] coronary artery of [place] heart with angina pectoris 03/01/2018 Overview (07/15/2021): Last Assessment & Plan: Mild to moderate by past catheterization 2016. No ischemia 2018 stress test. Cardiac MRI did not suggest ischemia at [facility]. No definite angina. Continue medical therapy and control of risk factors. See discussion concerning lipids. 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 Last Assessment & Plan: Stable left carotid stenosis by recent ultrasound. No TIA or strokelike symptoms or acute findings on head CT. Continue long-term control of cardiovascular risk factors and follow with her other physicians. [facility] vascular Memory impairment 12/02/2015 Memory loss 12/02/2015 [...] up labs. Will get records from [facility]c [facility] (Dr. Escalera at [facility] in [place], [place]). Last Assessment & Plan: GI evaluation [...] by the advanced heart failure program at [facility] when she returns up [place]. Added automatically from request for surgery [id number] Moderate by cath Nov: 66 mmHg peak systolic Last Assessment & Plan: Has been followed at the advanced heart failure program at [facility] and Dr. Coppola. 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 Is maintained on beta-blockers and anticoagulation with Eliquis. Atrial fibrillation Last Assessment & Plan: Infrequent spells on pacemaker interrogation of atrial fibrillation without rapid ventricular rates. Continue decrease metoprolol and continue Eliquis with follow-up of hemoglobin and for any symptoms or signs of bleeding with others. Current Treatment and Therapy Plans No current plan information found. Past Treatment and Therapy Plans Lifetime Dose Tracking * Chemical Lifetime Dose Automatic Entry Manual Entr y Air Kerma-mGy 3.67 mGy 0 mGy 3.67 mGy Dose Area Product(DAP)-mGy-cm2 328 mGy-cm2 0 mGy-cm2 328 mGy-cm2 Resolved Problems Problem Noted Date Diagnosed Date Resolved Date On anticoagulant therapy 05/11/2017 A-fib 04/30/2017 06/22/2020
--- OUTSIDE RECORDS SUMMARY | 2025-03-31 13:01 | XMS_ITS | Encounter Summary ---
Author Organization [facility] Address [address] [place] [address] Care Team Providers Care Multi Sensor Operator Name Role Phone Jace Blake MD Primary Care Provider Provider, Rachid GARCIA Unavailable Unavaila Andres Topete MD Unavailable Aki Ross MD Unavailable [phone] Ursula Boo MD Unavailable Rocio Youssef PA-C Unavailable [phone] Emeterio Valencia MD Unavailable Diana Coppola MD Unavailable Encounter Details Date Type Department Care Team (Late st Contact Info) Description 08/21/[address] [facility] [address] [place] [address] Tl Mancera, CORRECTIONAL CLASSIFICATION COUNSELOR 5 [facility] 2 [place] [address] Social History Tobacco Use Types [...] Office Visit [facility] [place] 45 [facility] 102 [place] [address] Aki Ross MD [address] [place] [address] 102 [place], [place] [id number] 05/11/2025 1:40 PM EDT Office Visit [facility] [place] 35 [place] [address] Nico Bailey MD [address] [place] [address] documented as of this encounter Visit Diagnoses Not on filedocumented in this encounter Additional Health Concerns Infection Onset Date Last Indicated Resolved Time R/O Gastrointestinal Infection 03/22/2025 03/22/2025 03/23/2025 10:28 PM EDT documented as of this encounter Care Teams Multi Sensor Operator Relationship Specialty Start Date End Date Jace Blake MD [facility]8 [place] [address] PCP - General Psychiatry, General 05/04/17 ProviderRachid MD 04/27/17 Andres Lakhani MD [address] [place] [address] Veterinarian Poultry Cardiology 07/08/19 Aki Ross MD [address] [address] Primary Veterinarian Poultry Cardiovascular Disease 07/08/19 Ursula Boo MD [address] [address] Gastroenterology 06/07/20 Rocio Yousesf PA-C [address] [place] [address] Physician Mothers Helper Gastroenterology 06/07/20 Emeterio Valencia MD [address] [address] Clinician Pulmonary Medicine 06/20/20 Diana Coppola MD [address] [address] Internal Medicine 03/22/25 documented as of this encounter
--- OUTSIDE RECORDS SUMMARY | 2025-03-31 13:01 | XMS_ITS | Encounter Summary ---
Author Organization [facility] Address [address] [place] [address] Care Team Providers Care Ground Helper Street Railway Name Role Phone Jace Blake MD Primary Care Provider Provider, Rachid GARCIA Unavailable Unavaila Andres Topete MD Unavailable [phone] Aki Ross MD Unavailable [phone] Ursula Boo MD Unavailable Rocio Youssef PA-C Unavailable Emeterio Valencia MD Unavailable Diana Coppola MD Unavailable Encounter Details Date Type Department Care Team (Late st Contact Info) Description 06/20/2020 Scanned Document [facility] [place] [address] [place] [address] Provider, Tom, [address] [place] [address] Social History Tobacco Use Types Packs/Day Years [...] Visit [facility] [place] 45 [facility] 102 [place] [address] Aki Ross MD [address] [place] [address] 102 [place] [address] 05/11/2025 1:40 PM EDT Office Visit [facility] Derm[facility]ology [place] 35 [place] [address] Nico Bailey MD [address] [place] [address] documented as of this encounter Visit Diagnoses Not on filedocumented in this encounter Additional Health Concerns Infection Onset Date Last Indicated Resolved Time R/O Gastrointestinal Infection 03/22/2025 03/22/2025 03/23/2025 10:28 PM EDT documented as of this encounter Care Teams Ground Helper [address] Railway Relationship Specialty Start Date End Date Jace Blake MD [address] [place] [address] PCP - General Psychiatry, General 05/04/17 ProviderRachid MD 04/27/17 Andres Lakhani MD [address] [place] [address] Sap Trainer Cardiology 07/08/19 Aki Ross MD [address] [address] Primary Sap Trainer Cardiovascular Disease 07/08/19 Ursula Boo MD [address] [address] Gastroenterology 06/07/20 Rocio Youssef PA-C [address]A [facility] 4 [place] [address] Physician Exerciser Gastroenterology 06/07/20 Emeterio Valencia MD [address] [address] Clinician Pulmonary Medicine 06/20/20 Diana Coppola MD [address] [address] Internal Medicine 03/22/25 documented as of this encounter
--- OUTSIDE RECORDS SUMMARY | 2025-03-31 13:01 | XMS_ITS | Encounter Summary ---
Author Organization [facility] Address [address] [place] [address] Care Team Providers Care Hand Stone Polisher Name Role Phone Jace Blake MD Primary Care Provider Provider, Rachid GARCIA Unavailable Unavaila Andres Topete MD Unavailable [phone] Aki Ross MD Unavailable [phone] Ursula Boo MD Unavailable Rocio Youssef PA-C Unavailable [phone] Emeterio Valencia MD Unavailable Diana Coppola MD Unavailable Encounter Details Date Type Department Care Team (Late st Contact Info) Description 07/25/2020 Scanned Document [facility] [address] [place] [address] Ursula Boo MD [address] [place] [phone] Social History Tobacco Use Types Packs/Day [...] Description 05/04/2025 10:00 AM EDT Office Visit [facility] [place] 45 [facility] 102 [place] [address] Aki Ross MD [address] [place] [address] 102 [place] [address] 05/11/2025 1:40 PM EDT Office Visit [facility] Dermatology [place] 35 [place] [address] Nico Bailey MD [address] [place] [address] documented as of this encounter Visit Diagnoses Not on filedocumented in this encounter Additional Health Concerns Infection Onset Date Last Indicated Resolved Time R/O Gastrointestinal Infection 03/22/2025 03/22/2025 03/23/2025 10:28 PM EDT documented as of this encounter Care Teams Hand Stone Polisher Relationship Specialty Start Date End Date Jace Blake MD [address] [place] [address] PCP - General Psychiatry, General 05/04/17 ProviderRachid MD 04/27/17 [place] [address] [place] [address] Clinical Cytogeneticist Cardiology 07/08/19 Aki Ross MD [address] [address] Primary Clinical Cytogeneticist Cardiovascular Disease 07/08/19 Ursula Boo MD [address] [address] Gastroenterology 06/07/20 Rocio Youssef PA-C [address] [address] Physician Loan Workout Officer Gastroenterology 06/07/20 Emeterio Valencia MD [address] [address] Clinician Pulmonary Medicine 06/20/20 Diana Coppola MD [address] [address] Internal Medicine 03/22/25 documented as of this encounter
--- OUTSIDE RECORDS SUMMARY | 2025-03-31 13:01 | XMS_ITS | Encounter Summary ---
Author Organization [facility] Address [address] [place] [address] Care Team Providers Care Lacquer Mixer Name Role Phone Jace Blake MD Primary Care Provider [phone] Provider, Rachid GARCIA Unavailable Unavaila Andres Topete MD Unavailable [phone] kAi Ross MD Unavailable [phone] Ursula Boo MD Unavailable Rocio Youssef PA-C Unavailable [phone] Emeterio Valencia MD Unavailable Diana Coppola MD Unavailable Encounter Details Date Type Department Care Team (Late st Contact Info) Description 06/19/2020 Scanned Document [facility] [address] [place] [address] Ursula Boo MD [address] [place] [address] Social History Tobacco Use Types Packs/Day [...] [facility] [place] 45 [facility] 102 [place] [address] Aki Ross MD [address] [place] [address] 102 [place] [address] 05/11/2025 1:40 PM EDT Office Visit [facility] Dermatology [place] 35 [place] [address] Nico Bailey MD [address] [place] [address] documented as of this encounter Visit Diagnoses Not on filedocumented in this encounter Additional Health Concerns Infection Onset Date Last Indicated Resolved Time R/O Gastrointestinal Infection 03/22/2025 03/22/2025 03/23/2025 10:28 PM EDT documented as of this encounter Care Teams Lacquer Mixer Relationship Specialty Start Date End Date Jace Blake MD [address] [place] [address] PCP - General Psychiatry, General 05/04/17 ProviderRachid MD 04/27/17 Andres Lakhani MD [address]82 [place] [address] Robotic Machine Operator Cardiology 07/08/19 Aki Ross MD [address] [address] Primary Robotic Machine Operator Cardiovascular Disease 07/08/19 Ursula Boo MD [address] [address] Gastroenterology 06/07/20 Rocio Youssef PA-C [address] [address] Physician Tourist Information Assistant Gastroenterology 06/07/20 Emeterio Valencia MD [address] [address] Clinician Pulmonary Medicine 06/20/20 Diana Coppola MD [address] [address] Internal Medicine 03/22/25 documented as of this encounter
--- OUTSIDE RECORDS SUMMARY | 2025-03-31 13:01 | XMS_ITS | Encounter Summary ---
Author Organization [facility] Address [address] [place] [address] Care Team Providers Care Brokerage Manager Name Role Phone Jace Blake MD Primary Care Provider Provider, Rachid GARCIA Unavailable Unavaila Andres Topete MD Unavailable [phone] Aki Ross MD Unavailable [phone] Ursula Boo MD Unavailable Rocio Youssef PA-C Unavailable Emeterio Valencia MD Unavailable Diana Coppola MD Unavailable Encounter Details Date Type Department Care Team (Late st Contact Info) Description 06/20/2020 Scanned Document [facility] [place] [address] [place] [address] Provider, Tom, 193 [place] [address] Social History Tobacco Use Types Packs/Day Years [...] Visit [facility] [place] 45 [facility] 102 [place] [address] Aki Ross MD [address] [place] [address] 102 [place] [address] 05/11/2025 1:40 PM EDT Office Visit [facility] Derm[facility]ology [place] 35 [place] [address] Nico Bailey MD [address] [place] [address] documented as of this encounter Visit Diagnoses Not on filedocumented in this encounter Additional Health Concerns Infection Onset Date Last Indicated Resolved Time R/O Gastrointestinal Infection 03/22/2025 03/22/2025 03/23/2025 10:28 PM EDT documented as of this encounter Care Teams Brokerage Manager Relationship Specialty Start Date End Date Jace Blake MD [address]8 [place] [address] PCP - General Psychiatry, General 05/04/17 ProviderRachid MD 04/27/17 Andres Lakhani MD [address]82 [place] [address] Motorcycle Builder Cardiology 07/08/19 Aki Ross MD [address] [address] Primary Motorcycle Builder Cardiovascular Disease 07/08/19 Ursula Boo MD [address] [address] Gastroenterology 06/07/20 Rocio Youssef PA-C [address]A [facility] 4 [place] [address] Physician Solid Waste Management Engineer Gastroenterology 06/07/20 Emeterio Valencia MD [address] [address] Clinician Pulmonary Medicine 06/20/20 Diana Coppola MD [address] [address] Internal Medicine 03/22/25 documented as of this encounter
--- OUTSIDE RECORDS SUMMARY | 2025-03-31 13:01 | XMS_ITS | Encounter Summary ---
Author Organization [facility] Address [address] [place] [address] Care Team Providers Care Animal Skinner Name Role Phone Jace Blake MD Primary Care Provider Provider, Rachid GARCIA Unavailable Unavaila Andres Topete MD Unavailable [phone] Aki Ross MD Unavailable [phone] Ursula Boo MD Unavailable [phone] Rocio Youssef PA-C Unavailable [phone] Emeterio Valencia MD Unavailable Diana Coppola MD Unavailable Encounter Details Date Type Department Care Team (Late st Contact Info) Description 06/20/2020 Scanned Document [facility] [address] [place] [address] Ursula Boo MD [address] [place] [phone] Social History Tobacco Use Types Packs/Day [...] Description 05/04/2025 10:00 AM EDT Office Visit [facility] [place] 45 [facility] 102 [place] [address] Aki Ross MD [address] [place] [address] 102 [place] [address] 05/11/2025 1:40 PM EDT Office Visit [facility] Dermatology [place] 35 [place] [address] Nico Bailey MD [address] [place] [address] documented as of this encounter Visit Diagnoses Not on filedocumented in this encounter Additional Health Concerns Infection Onset Date Last Indicated Resolved Time R/O Gastrointestinal Infection 03/22/2025 03/22/2025 03/23/2025 10:28 PM EDT documented as of this encounter Care Teams Animal Skinner Relationship Specialty Start Date End Date Jace Blake MD 1158 [place] [address] PCP - General Psychiatry, General 05/04/17 ProviderRachid MD 04/27/17 Andres Lakhani MD [address] [place] [address] Water Carter Cardiology 07/08/19 Aki Ross MD [address] [address] Primary [place] Cardiovascular Disease 07/08/19 Ursula Boo MD [address] [address] Gastroenterology 06/07/20 Rocio Youssef PA-C [address] [address] Physician Construction Plant Operator Gastroenterology 06/07/20 Emeterio Valencia MD [address] [address] Clinician Pulmonary Medicine 06/20/20 Diana Coppola MD [address] [address] Internal Medicine 03/22/25 documented as of this encounter
--- OUTSIDE RECORDS SUMMARY | 2025-03-31 13:01 | XMS_ITS | Encounter Summary ---
Author Organization [facility] Address [address] [place] [address] Care Team Providers Care Metallurgical Lab Technician Name Role Phone Blake, Gary Primary Care Provider [phone] Encounter Details Date Type Department Care Team (Late st Contact Info) Description 06/28/2019 Transcribed Orders [facility] 45 [place] [address] Aki Ross MD [address] [address] Social History Tobacco Use Types [...] AM EDT Follow Up Neuromuscular Medicine at [address] [place] [phone] Silvestre Maldonado MD [address] [place] [phone] 07/19/2025 12:20 PM EDT Follow Up [facility] at 800 [facility] [address] [place] [address] Diana Coppola MD 800 [facility] [place] [phone] 10/05/2025 12:30 PM EST Appointment PUL[facility] LAB[facility]AT[facility] - [address] [address] Aparna Chang MD [address] [place] [phone] [place], Pft Walk 10/05/2025 1:00 PM EST Appointment [facility] - [address] [place] [address] Aparna Chang MD [address] [place] [phone] 1, Pft Procedure Room 10/05/2025 2:00 PM EST Office Visit [facility] [address] [phone] Aparna Chang MD [address] [place] [phone] documented as of this encounter Visit Diagnoses Not on filedocumented in this encounter Care Teams Metallurgical Lab Technician Relationship Specialty Start Date End Date Jace Blake DO [address] [place] [address] PCP - General Family Medicine 08/01/14 documented as of this encounter
--- OUTSIDE RECORDS SUMMARY | 2025-03-31 13:01 | XMS_ITS | Encounter Summary ---
Author Organization [facility] Address [address] [place] [address] Care Team Providers Care Telecommunication Systems Designer Name Role Phone Jace Blake MD Primary Care Provider [phone] Provider, Rachid GARCIA Unavailable Unavaila Andres Topete MD Unavailable [phone] Aki Ross MD Unavailable [phone] Ursula Boo MD Unavailable [phone] Rocio Youssef PA-C Unavailable [phone] Emeterio Valencia MD Unavailable Diana Coppola MD Unavailable Encounter Details Date Type Department Care Team (Late st Contact Info) Description 06/03/2017 Scanned Document [facility] [place] [address] [address] Aki Ross MD [address] [place] [address] 102 [place] [address] Social History Tobacco Use Types [...] Visit [facility] [place] [address] [place] [address] [address] Aki Ross MD [address] [place] [address] 05/11/2025 1:40 PM EDT Office Visit [facility] Dermatology [place] 35 [place] [address] Nico Bailey MD [address] [place] [address] documented as of this encounter Visit Diagnoses Not on filedocumented in this encounter Additional Health Concerns Infection Onset Date Last Indicated Resolved Time R/O Gastrointestinal Infection 03/22/2025 03/22/2025 03/23/2025 10:28 PM EDT documented as of this encounter Care Teams Telecommunication Systems Designer Relationship Specialty Start Date End Date Jace Blake MD 1158 [place] [address] PCP - General Psychiatry, General 05/04/17 ProviderRachid MD 04/27/17 Andres Lakhani MD 1682 [place] [address] Radiology Equipment Servicer Cardiology 07/08/19 Aki Ross MD [address] [place] [address] Primary Radiology Equipment Servicer Cardiovascular Disease 07/08/19 Ursula Boo MD [address] [address] Gastroenterology 06/07/20 Rocio Youssef PA-C [address] [address] Physician Stuffed Casing Tier Gastroenterology 06/07/20 Emeterio Valencia MD [address] [address] Clinician Pulmonary Medicine 06/20/20 Diana Coppola MD [address] [address] Internal Medicine 03/22/25 documented as of this encounter
--- OUTSIDE RECORDS SUMMARY | 2025-03-31 13:02 | XMS_ITS | Data Portability ---
Author Organization [facility] [employer], [facility] Address [address] [place] [address] Care Team Providers Care Signaler Name Role Phone ROSIEGORGE Referring Provider TIMMY AGEE Referring Provider Assessment No assessment recorded. Plan of Treatment [...] ogist concer jorge this exam, please call [phone] . SIN MCNAIR MD DICTAT ING PHYSIC JOSHUA APPROV ING PHYSIC JOSHUA MCNAIR MD 2019 01:46 PM CW/ 0 01:41 PM Adan arias Copy to: JEOVANNY MONTGOMERY MD [id number] [facility] Scheduling Dept (Imaging) [address] [place] [address], [phone], 08/20/2023 23:04:51 11/26/19 21 11/26/2020 US, abdom [...] Thank you for trusti ng Radiol ogy [facility] with your referr al. If you are a Health Care Provid er and would like to speak with a Radiol ogist concer jorge this exam, please call [phone] . MARIA ELENA MARCUS ND, MD DICTAT ING PHYSIC JOSHUA APPROV ING PHYSIC JOSHUA MARIA ELENA MARCUS ND, MD 2020 09:27 AM 09:27 AM Adan arias Copy to: JEOVANNY MONTGOMERY MD MIGRATION.[id number] [facility] Scheduling Dept (Imaging) [address] [facility], [place], [address], 08/20/2023 23:04:51 12/12/19 21 12/10/2020 US, thyro id No observ ation record ed. [id number] [email or web address] Imaging All Locations, [place], [address], 11/04/2024 19:35:31 02/21/20 21 02/15/2021 US, leif [...] al. If you are a Health Care [facility] er and like to speak with a Radiol ogist concer jorge this exam, please call [phone] . KEATON Eason MD DICTAT ING PHYSIC JOSHUA APPROV ING PHYSIC JOSHUA COLBY GALINDO MD 2020 01:48 PM CHG/ 21 04:28 PM Adan sy Copy to: [id number] [facility] Scheduling Dept (Imaging) [address] [place] [address], [address], 08/20/2023 23:04:51 Result Notes None recorded. Problems Name Problem SNOMED Code Status Onset Date Resolution Date Notes Provider Name and Address Organization Details Recorded Time Iron deficiency anemia 44403331 Active 2014 Violeta pino [facility], [facility] 9 08:42:01 Chronic diastolic heart failure 115007288 Active [facility] 9 08:42:01 Hypertensi ve disorder 40265809 Active 2014 [facility] 9 08:42:01 Left carotid artery stenosis 7542163929650 03 Active 2015 [facility] 9 08:42:01 Cardiac arrhythmia 000834151 Active 2014 [facility] 9 08:42:01 Pulmonary hypertensi on 88990945 Active 2013 Violeta pino [facility], [facility] 9 08:42:01 Coronary arterioscl erosis in [place] artery 6907140905474 Active 2017 Violeta pino [facility], [facility] 9 08:42:01 Neuropathy 411837365 Active 2017 [facility] 9 08:42:01 Thyroid nodule 070584067 Active 2013 [facility] p[facility], [facility] 9 08:42:01 Memory impairment 601311256 Active 2015 Violeta pino [facility], [facility] 9 08:42:01 Atrial fibrillati on 53451859 Active 2013 Violeta pino [facility] Physician [facility], [facility] 9 08:42:02 Long-term current use of anticoagul ant 250308312 Active 2016 Violeta pino [facility] Physician [facility], [facility] 9 08:42:02 Irritable bowel syndrome with diarrhea 720724608 Active 2014 Violeta pino [facility], [facility] 9 08:42:02 Paraparesi s 8345943 Active 2017 [facility] 9 08:42:02 Computed tomography result abnormal 297813298 Active 2017 Violeta pino [facility], [facility] 9 08:42:02 Chronic atrial fibrillati on 450885520 Active 2016 Violeta pino [facility], [facility] 9 08:42:02 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 2014 [facility], [facility] 9 08:42:02 Osteoarthr itis 719705723 Active 2018 [facility], [facility] 9 08:42:01 Spinal stenosis of lumbar region 04873005 Active 2018 Violeta pino [facility], [facility] 9 08:42:01 Idiopathic peripheral neuropathy 80971804 Active 2018 [facility], [facility] 9 08:42:01 History of depression 967183519 Active 2018 Not Available [facility] 18:41:07 Insomnia 756387610 Active 2017 Not Available [facility] 18:41:07 Single coronary vessel disease 572426875 Active 2017 Not Available [facility] 18:41:07 Gastroesop hageal reflux disease 609625923 Active 2017 Not Available [facility] 1 18:41:07 Anemia 516848233 Active 2019 Not Available [facility] 1 18:41:07 Iron deficiency 08112993 Active 2017 Not Available [facility] 1 18:41:07 Congestive heart failure 24273658 Active 2018 35% EF Not Available [facility] 1 18:41:07 Cardiac pacemaker in situ 172369527 Active 2017 Not Available [facility] 1 18:41:07 Multiple nodules of lung 861140984 Active 2019 Not Available [facility] 1 18:41:07 Anxiety 84497211 Active 2017 Not Available [facility] 1 18:41:07 Hyperlipid emia 65017978 Active 2017 Not Available [facility] 1 18:41:08 Essential hypertensi on 29226405 Active 2018 Not Available [facility] 1 18:41:08 Cardiomyop athy 87992084 Active 2019 Not Available [facility] 1 18:41:08 Problem Notes None recorded. Procedures Surgical History Date Name Laterality Status Provider Name and Address Organization Details Recorded Time procedure on neck completed HUY MENDIOLA [facility] 01/13/2019 10:10:31 Appendectomy completed HUY MENDIOLA [facility] 01/13/2019 10:10:39 Tonsillectomy completed HUYTUSHAR MENDIOLA [facility], [facility] 01/13/2019 10:11:03 suture of rectum completed HUY MENDIOLA [facility] 01/13/2019 10:11:28 destruction of lesion completed HUY MENDIOLA [facility] 01/13/2019 10:12:07 Pacemaker implantation completed HUY MENDIOLA [facility] 01/13/2019 10:12:27 Hysterectomy completed Darlene Velasquez [facility] 02/07/2014 09:23:46 Back surgery completed Darlene Velasquez [facility], [facility] 02/07/2014 09:23:46 Knee surgery completed Violeta Rascon [facility], [facility] 12/06/2019 08:25:31 Other completed Darlene Velasquez [facility], [facility] 02/07/2014 09:23:46 Imaging Results Imaging Date Name Status LastModified by Organiz ation Details LastModified Time 12/10/2020 US, thyroid completed [id number] [facility] Imaging Services [facility] Imaging All Locations, [place], [address], 11/04/2024 19:35:31 02/15/2021 US, duplex, venous, extremity, limited completed [id number] Radiology [facility] Scheduling Dept (Imaging) [address] [place] [address], [address], 08/20/2023 23:04:51 11/06/2020 CT, orbit / sella / posterior fossa / ear, w/o contrast completed [id number] [facility]iology [facility] Scheduling Dept (Imaging) [address] [place] [address], [phone], 08/20/2023 23:04:51 11/26/2020 US, abdomen, limited completed [id number] [facility] Scheduling Dept (Imaging) [address] [place] [address], [address], 08/20/2023 23:04:51 Procedure Notes None recorded. Medical Equipment None Reported. Allergies Allergen ID Allergen Name Allergen Category Reaction Reaction Severity Criticality Documentation Date Start Date Code Code System Note Provider Name and Address Organization Details Recorded Time 349902 Iodinated contrast media (substanc e) medicatio n Not available Not available Not available 02/07/2014 16897 2003 SNOMED HUY pino [facility] Physician [facility], [facility] 9 10:09:22 Medications Name Sig Start Date [...] Vitals Date Recorded Body mass index (BMI) Body height Oxygen saturation Oxygen saturation in Arterial blood by Pulse oximetry Heart rate Respiratory rate Body temperature Body weight Systolic blood pressure Diastolic blood pressure Provider Name and Address Organization Details Last Updated DateTime 0 32.6 kg/m2 177.8 cm 98 % 98 % 86 /min 16 /min 97.9 [degF] 482490. 47 g 106 mm[Hg] 68 mm[Hg] Not Available [facility] 18:35:19 Date Recorded Body mass index (BMI) Body height Oxygen saturation Oxygen saturation in Arterial blood by Pulse oximetry Heart rate Respiratory rate Body temperature Body weight Systolic blood pressure Diastolic blood pressure Provider Name and Address Organization Details Last Updated DateTime 1 32.4 kg/m2 177.8 cm 99 % 99 % 88 /min 20 /min 98.4 [degF] 912215. 88 g 116 mm[Hg] 70 mm[Hg] Not Available [facility] 1 18:35:19 Date Recorded Body height Oxygen saturation Oxygen saturation in Arterial blood by Pulse oximetry Heart rate Respiratory rate Body temperature Systolic blood pressure Diastolic blood pressure Provider Name and Address Organization Details Last Updated DateTime 1 177.8 cm 99 % 99 % 68 /min 16 /min 97.8 [degF] 110 mm[Hg] 70 mm[Hg] Not Available [facility] 18:35:19 Date Recorded Body height Heart rate Respiratory rate Body temperature Systolic blood pressure Diastolic blood pressure Provider Name and Address Organization Details Last Updated DateTime 1 177.8 cm 120 /min 18 /min 98.4 [degF] 166 mm[Hg] 84 mm[Hg] Not Available [facility] 18:35:19 Social History Question Answer Notes LastModified by Organizat ion Details LastModified Time Tobacco Smoking Status Former Smoker KAPIL Maurer - [facility], [facility] 02/07/2014 09:23:45 Do You Have An Advance Directive? No [email or web address] Information not available 02/07/2014 How Much Tobacco Do You Chew? None [email or web address] Information not available 02/07/2014 Which Illicit Or Recreational Drugs Have You Used? No [email or web address] Information not available 02/07/2014 Do You Or Have You Ever Used E-cigarettes Or Vape? 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 02/01/2019 Information not available 06/17/2019 At What Age Did You Start Smoking Tobacco? 23 [email or web address] Information not available 02/07/2014 Do You Or Have You Ever Used Smokeless Tobacco? Never Used Smokeless Tobacco Information not available 11/01/2019 How Much Tobacco Do You Smoke? 1 PPD [email or web address] Information not available 02/07/2014 How Many Years Have You Smoked Tobacco? 40 [email or web address] Information not available 02/07/2014 Sex: Female Functional Status Question Answer Note LastModified by Organization D etails LastModified Time What is your exercise level? None [email or web address] Information not available 02/07/2014 Mental Status None [...] N Thyroid Disease N Kidney Stones N Emphysema/COPD Y Measles/Mumps N Sexually Transmitted Disease N Depression Y Prostate Problems N Vascular Disease N Rash/Skin Condition N Amputation (location) N Parkinson's N Paralysis N Headaches/Migraines Y Cardiac Pacemaker/defibrillator Y Nerve Damage / Neuropathy Y Arthritis Y Sleep disorder/Insomnia Y Heart disease / Heart Attack N Crohn's Disease N HIV/AIDS N Stroke/TIA N High Cholesterol Y Colon Problems Y Serious Injuries N Kidney Disease N [...] virus, quadrivalent, preservative 9 completed [facility], [facility] 10/27/2019 08:29:47 COVID-19, mRNA, LNP-S, PF, 100 mcg/0.5mL dose or 50 mcg/0.25mL dose 1 completed Not Available [facility] 10/18/2021 18:55:54 COVID-19, mRNA, LNP-S, PF, 100 mcg/0.5mL dose or 50 mcg/0.25mL dose 1 completed Not Available [facility] 10/18/2021 18:55:54 Influenza, split virus, quadrivalent, preservative 0 completed Not Available [facility] 10/18/2021 18:55:54 Pneumococcal conjugate PCV 13 0 completed Not Available [facility] 10/18/2021 18:55:54 Past Encounters Encounter ID Performer Location Encounter Start Date Encounter Closed Date Diagnosis/Indication Diagnosis SNOMED-CT Code Diagnosis ICD10 Code Diagnosis Note [id number] MD KIARA Silva [place] [address] [place] [address] 02/07/2014 08:48:09 02/07/2014 10:14:47 Hyperthyroidism [id number] 02/01/14 TSH <0.006 FT4 3.11 check thyroid scan , continue metoprolol 50 mg/day education provided, ? TMNG vs Graves Vs thyroiditi s pt clinically moldly hyperthyro id Multinodular goiter 080159205 01/23/14 thyroid US: MNG with right dominant lesion 1 cm ( radiologis t recommends FNA) pending scan will FNA the right lesion [id number] Mychal Franco [facility] [address] [place] [address] 02/20/2014 09:21:33 02/20/2014 11:25:17 Hyperthyroidism 86121627 02/01/14 TSH <0.006 FT4 3.11 check thyroid scan , continue metoprolol 50 mg/day education provided, ? TMNG vs Graves Vs thyroiditi s pt clinically moldly hyperthyro id 02/09/14 thyroid scan: 4 hour 1.4% 24 hour 1.9% s/o thyroiditi s monitor the function, repeat labs in 3 weeks , continue metoprolol 50 mg /day [id number] Mychal Franco MD [facility] [address] [place] [address] 03/13/2014 09:13:30 03/13/2014 10:41:33 Hyperthyroidism [id number] 02/01/14 TSH <0.006 FT4 3.11 check thyroid [...] endo, pt understand s RTO when back [id number] Gorge Osei DO [facility] [address] [place] [address] 01/13/2019 09:32:41 01/13/2019 14:12:23 Anti-nuclear factor detected 720486021 R76.8 and DS DNA + Osteoarthritis 084414432 M19.90 Idiopathic peripheral neuropathy 50094502 G60.9 Spinal chuck nosis of lumbar region 82167707 M48.324 [id number] Gorge Osei DO [address] [address] 02/01/2019 08:37:35 02/01/2019 09:57:36 Idiopathic peripheral neuropathy 59913423 G60.9 Spinal chuck nosis of lumbar region 84183336 M48.061 Osteoarthritis 303183695 M19.90 Anti-nucle ar factor detected 894853577 R76.8 and DS DNA + As well as some cardiolipi n antibodies IgA and IgM Raised ant inuclear antibody 126746191 R76.0 [id number] Ben Alberto MD [address] [address] 10/27/2019 07:55:59 10/27/2019 09:47:34 Hyperparathyroidism 50228450 E21.3 Laboratory evaluation reviewed and discussed with the patient.No rmal calcium metabolism discussed with the patient including the role of PTH and vitamin DDifferent ial diagnosis discussed with the patient.Co unseled on appropriat e work upLabs ordered as below.Foll ow up with results. [id number] Ben Alberto MD [address] [address] 11/01/2019 08:35:27 11/01/2019 09:29:30 Primary hyperparathyroidism 63490050 E21.0 Has picture of mixed hyperparat hyroidism. [...] option depending on patient's preference Secondary hyperparathyroidism 39806122 E21.1 Has vitamin D deficiency Recommend to replenish vitamin D stores.At this point start Drisdol once a weekRisk factors of vitamin D deficiency discussed. Vitamin D deficiency 347 73907 E55.9 Will replace please see above. Hypophosphatemia 3409544 E83.39 Please see above. [id number] RosamariaMARIS Fletcher [facility] [address] [place] [address] 12/06/2019 08:17:33 12/06/2019 09:04:56 Hyperparathyroidism 32712317 E21.3 Will refer to [facility] for parathyroi dectomy Hypercalcemia 62952691 E 83.52 [facility] refer to [facility] for parathyroi dectomy Thyroid nodule 580708689 E04.1 Will monitor with ultrasound annually. [id number] Jeovanny Ramírez MD [facility] [address] [place] [address] 10/06/2018 00:00:00 02/06/2019 15:54:54 [id number] Jeovanny Ramírez MD [facility] [address] [place] [address] 12/20/2018 00:00:00 02/06/2019 16:01:43 [id number] Jeovanny Ramírez MD [facility] [address] [place] [address] 09/27/2019 00:00:00 09/27/2019 23:26:03 [id number] Jeovanny Ramírez MD [facility] [address] [place] [address] 12/06/2019 00:00:00 12/25/2019 18:18:38 [id number] Jeovanny Ramírez MD [facility] [address] [place] [address] 03/16/2020 00:00:00 03/16/2020 12:21:43 [id number] Jeovanny Ramírez MD Nicole [address] [place] [address] 10/25/2020 00:00:00 10/25/2020 22:52:20 [id number] Jeovanny Ramírez MD [facility] [address] [place] [address] 12/11/2020 00:00:00 12/30/2020 10:08:18 [id number] Jeovanny Ramírez MD [facility] [address] [place] [address] 02/15/2021 00:00:00 02/23/2021 09:49:04 [id number] Jeovanny Ramírez MD [facility] [address] [facility] [place] [address] 09/03/2021 00:00:00 09/03/2021 23:26:37 Health Concerns Section Related Observation LastModified by Organization Detai ls LastModified Time None Recorded Concern Status LastModified by Organization Details LastModified Time None Recorded Advance Directives Directive N: Payers Insurance Date Sequence Insurance Name Policy Number Policy Fields Covered Member ID Fields Member ID Guarantor Name 03/10/2023 1 [place] Clarence Marrufo [id number] Kimberly Naylor 03/10/2023 2 [place] [facility] [id number] Kimberly Naylor [id number] Kimberly Naylor Notes Date Note Type Note Provider Name [...] in exercise capacity;shortness of breath;fatigue Not Available [email or web address] 03/16/2020 12:21:43 0 text/html HyperlipidemiaReported bypatient.Type of hyperlipidemia:combined Control:not at goal Compliance:noncompliant with diet;does not exercise Complications:coronary artery disease;cardiovascular disease Risk Factors:hypertensionHypert ension IM/FMReported bypatient.Quality:here for check-up Severity:moderate Onset/Timing:gradual onset Context:exertion Alleviating Factors:relieved with rest; medication Self Care:under emotional stress;not watching diet;sedentaryNotes:ABNORM AL LFTs. Pt had a work up [place], its unclear what the reason for the elevated LFTs is. She also saw furrier shop supervisor for pulmonary HTN, lung nodules. She is on Oxygen now. Has chain carrier for follow up a fib. She was told she has cardiomyopathy, pulmonary HTN Saw a line puller - no dx of autoimmune disease was made. 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 Will order more tests ANEMIA Had GI work up, which discovered polyps in the intestine. Very few records are avaiable for [place] Not Available [facility] 10/25/2020 22:52:20 1 text/html Medicare Annual Wellness [...] fall in the past year Not Available [facility] [employer] [email or web address] 12/30/2020 10:08:18 1 text/html EdemaReported bypatient.Location:RLE Quality:legs [...] Will xray and start Augmentin Not Available ID [facility]IM[facility] 02/23/2021 09:49:04 1 text/html Abdominal PainReported bypatient.Location:LLQ; epigastric Quality:bloating;cramping; aching;burning Severity:moderate Duration:constant Onset/Timing:worse Aggravating Factors:movement; eating Alleviating Factors:nothing gives relief Associated Symptoms:no fever; no chills;nausea;vomiting;con stipation Previous Tests, Treatment and/or Diagnostic Procedures:noneNotes:Was seen in ER 2 days ago Not Available [facility] [employer] [facility], [facility] 09/03/2021 23:26:37 OBGyn Episode No OBEpisode recorded.
--- OUTSIDE RECORDS SUMMARY | 2025-03-31 13:02 | XMS_ITS | Encounter Summary ---
Author Organization [facility] Address [address] [place] [address] Care Team Providers Care Paint Mixer Name Role Phone Blake, Gary Primary Care Provider [phone] Encounter Details Date Type Department Care Team (Late Contact Info) Description 07/21/2018 Scanned Document Gastrointestinal Surgery at [address] [place] [address] [place] [address] Chino Cordova MD PhD [address] [place] [phone] Social History Tobacco Use Types Packs/Day Years [...] AM EDT Follow Up Neuromuscular Medicine at [address] [place] [address] [place] [address] Silvestre Maldonado MD [address] [place] [address] [place] [phone] 07/19/2025 12:20 PM EDT Follow Up Congestive Heart Failure Program at [address] [facility] [address] [place] [address] Diana Coppola MD 800 [facility] [address] 10/05/2025 12:30 PM EST Appointment [facility] - [address] [address] Aparna Chang MD [address] [place] [phone] [address], Pft Walk 10/05/2025 1:00 PM EST Appointment [facility] - [address] [place] [address] Aparna Chang MD [address] [place] [phone] 1, Pft Procedure Room 10/05/2025 2:00 PM EST Office Visit [facility] [address] [phone] Aparna Chang MD [address] [place] [phone] documented as of this encounter Visit Diagnoses Not on filedocumented in this encounter Care Teams Paint Mixer Relationship Specialty Start Date End Date Jace Blake DO [address] [place] [address] PCP - General Family Medicine 08/01/14 documented as of this encounter
--- OUTSIDE RECORDS SUMMARY | 2025-03-31 13:02 | XMS_ITS | Encounter Summary ---
Author Organization [facility] and [facility] Address [address] [place] [address] Care Team Providers Care Beaming Machine Operator Name Role Phone Miguel Angel Blakey Primary Care Provider [phone] Encounter Details Date Type Department Care Team (Late st Contact Info) Description 03/27/2017 Scanned Document Neurosurgery at [address] [place] [address] Narda Candelaria PA [address] [place] [phone] Social History Tobacco Use Types Packs/Day Years [...] EDT Follow Up Neuromuscular Medicine at [address] 512549 Silvestre Maldonado MD [address] [place] [phone] 07/19/2025 12:20 PM EDT Follow Up Congestive Heart Failure Program at 800 [facility] [address] [place] [address] Diana Coppola MD 800 [facility] [place] [address] 10/05/2025 12:30 PM EST Appointment P[facility] LAB[facility]ATORY - [address] [address] Aparna Chang MD [address] [place] [phone] Hallway, Pft Walk 10/05/2025 1:00 PM EST Appointment [facility] - [address] [place] [address] Aparna Chang MD [address] [place] [phone] 1, Pft Procedure Room 10/05/2025 2:00 PM EST Office Visit [facility] [address] [phone] Aparna Chang MD [address] [place] [phone] documented as of this encounter Visit Diagnoses Not on filedocumented in this encounter Care Teams Beaming Machine Operator Relationship Specialty Start Date End Date Jace Blake DO [address] [place] [address] PCP - General Family Medicine 08/01/14 documented as of this encounter
--- OUTSIDE RECORDS SUMMARY | 2025-03-31 13:02 | XMS_ITS | Encounter Summary ---
Author Organization [facility] Address [address] [place] [address] Care Team Providers Care Reiki Practitioner Name Role Phone Jace Blake MD Primary Care Provider Provider, Rachid GARCIA Unavailable Unavaila Andres Topete MD Unavailable [phone] kAi Ross MD Unavailable [phone] Ursula Boo MD Unavailable Rocio Youssef PA-C Unavailable Emeterio Valencia MD Unavailable Diana Coppola MD Unavailable Encounter Details Date Type Department Care Team (Late st Contact Info) Description 06/12/2020 Scanned Document [facility] [address] [place] [address] Provider, Tom, [address] [place] [address] Social History Tobacco Use Types Packs/Day Years [...] Visit [facility] [address] [place] [phone] Aki Ross MD [address] [place] [address] 102 [place] [address] 05/11/2025 1:40 PM EDT Office Visit [facility] [place] [address] [place] [address] Nico Bailey MD [address] [place] [address] documented as of this encounter Visit Diagnoses Not on filedocumented in this encounter Additional Health Concerns Infection Onset Date Last Indicated Resolved Time R/O Gastrointestinal Infection 03/22/2025 03/22/2025 03/23/2025 10:28 PM EDT documented as of this encounter Care Teams Reiki Practitioner Relationship Specialty Start Date End Date Jace Blake MD [address] [place] [address] PCP - General Psychiatry, General 05/04/17 ProviderRachid MD 04/27/17 Andres Lakhani MD [address] [place] [address] Fresh Foods Clerk Cardiology 07/08/19 Aki Ross MD [address] [address] Primary Fresh Foods Clerk Cardiovascular Disease 07/08/19 Ursula Boo MD [address] [address] Gastroenterology 06/07/20 Rocio Youssef PA-C [address] [facility] 4 [place] [address] Physician Foundation Stage Teacher Gastroenterology 06/07/20 Emeterio Valencia MD [address] [address] Clinician Pulmonary Medicine 06/20/20 Diana Coppola MD 800 [facility] 2nd [place] [address] Internal Medicine 03/22/25 documented as of this encounter
--- OUTSIDE RECORDS SUMMARY | 2025-03-31 13:02 | XMS_ITS | Encounter Summary ---
Author Organization [facility] and [facility] Address [address] [place] [address] Care Team Providers Care Crusher Setter Name Role Phone Blake, Gary Primary Care Provider [phone] Encounter Details Date Type Department Care Team (Late st Contact Info) Description 08/01/2014 Scanned Document Electrophysiology & Cardiac Arrhythmia Program [address] [place] [address] Bernard Interiano MD [address] [place] [phone] Social History Tobacco Use Types Packs/Day [...] EDT Follow Up Neuromuscular Medicine at [address] [phone] Silvestre Maldonado MD [address] [place] [phone] 07/19/2025 12:20 PM EDT Follow Up [facility] Congestive Heart Failure Program at 800 [facility] [address] [place] [address] Diana Coppola MD 800 [place] [address] 10/05/2025 12:30 PM EST Appointment [facility]AT[facility] - [address] [address] Aparna Chang MD [address] [place] [phone] Hallway, Pft Walk 10/05/2025 1:00 PM EST Appointment [facility] - [address] [place] [address] Aparna Chang MD [address] [place] [phone] 1, Pft Procedure Room 10/05/2025 2:00 PM EST Office Visit [facility] [address] [phone] Aparna Chang MD [address] [place] [phone] documented as of this encounter Visit Diagnoses Not on filedocumented in this encounter Care Teams Crusher Setter Relationship Specialty Start Date End Date Jace Blake DO [address] [place] [address] PCP - General Family Medicine 08/01/14 documented as of this encounter
--- OUTSIDE RECORDS SUMMARY | 2025-03-31 13:02 | XMS_ITS | Encounter Summary ---
Author Organization [facility] and [facility] Address [address] [place] [address] Care Team Providers Care Guardian Ad Litem Name Role Phone HaydenJace Primary Care Provider [phone] Encounter Details Date Type Department Care Team (Late st Contact Info) Description 07/19/2016 Abstract [facility] Neurosurgery at [address] [place] [address] Teodoro Hollingsworth MD [address] [place] [phone] Social History Tobacco Use Types Packs/Day [...] EDT Follow Up Neuromuscular Medicine at [address] 756769 Silvestre Maldonado MD [address] [place] [phone] 07/19/2025 12:20 PM EDT Follow Up [facility] Congestive Heart Failure Program at 800 [facility] [address] [place] [address] Diana Coppola MD 800 [facility] [place] [address] 10/05/2025 12:30 PM EST Appointment P[facility] - [address] [address] Aparna Chang MD [address] [place] [phone] Hallway, Pft Walk 10/05/2025 1:00 PM EST Appointment P[facility]AT[facility] - [address] [place] [address] Aparna Chang MD [address] [place] [phone] 1, Pft Procedure Room 10/05/2025 2:00 PM EST Office Visit [facility] [address] [phone] Aparna Chang MD [address] [place] [phone] documented as of this encounter Visit Diagnoses Not on filedocumented in this encounter Care Teams Guardian Ad Litem Relationship Specialty Start Date End Date Jace Blake DO [address] [place] [address] PCP - General Family Medicine 08/01/14 documented as of this encounter
--- OUTSIDE RECORDS SUMMARY | 2025-03-31 13:02 | XMS_ITS | Encounter Summary ---
Author Organization [facility] and [facility] Address [address] [place] [address] Care Team Providers Care Insurance Agent Name Role Phone Miguel Angel Blkaey Primary Care Provider [phone] Encounter Details Date Type Department Care Team (Late st Contact Info) Description 04/24/2017 Scanned Document Neurosurgery at [address] [place] [address] Narda Candelaria PA [address] [place] [phone] Social History Tobacco Use Types Packs/Day Years [...] EDT Follow Up Neuromuscular Medicine at [address] 110229 Silvestre Maldonado MD [address] [place] [phone] 07/19/2025 12:20 PM EDT Follow Up Congestive Heart Failure Program at 800 [facility] [address] [place] [address] Diana Coppola MD 800 [place] [address] 10/05/2025 12:30 PM EST Appointment P[facility] - [address] [address] Aparna Chang MD [address] [place] [phone] Hallway, Pft Walk 10/05/2025 1:00 PM EST Appointment PULMON[facility]CTION LABORATORY - [address] [place] [address] Aparna Chang MD [address] [place] [phone] 1, Pft Procedure Room 10/05/2025 2:00 PM EST Office Visit [facility] [address] [phone] Aparna Chang MD [address] [place] [phone] documented as of this encounter Visit Diagnoses Not on filedocumented in this encounter Care Teams Insurance Agent Relationship Specialty Start Date End Date Jace Blake DO [address] [place] [address] PCP - General Family Medicine 08/01/14 documented as of this encounter
--- OUTSIDE RECORDS SUMMARY | 2025-03-31 13:02 | XMS_ITS | Encounter Summary ---
Author Organization [facility] and [facility] Address [address] [place] [address] Care Team Providers Care Marketing Editor Name Role Phone BlakeJace Primary Care Provider [phone] Encounter Details Date Type Department Care Team (Late st Contact Info) Description 09/18/2015 Scanned Document Gastrointestinal Surgery at [address] [place] [address] [place] [address] Chino Cordova MD PhD [address] [place] [phone] Social History Tobacco Use Types Packs/Day Years [...] EDT Follow Up Neuromuscular Medicine at [address] [place] [address] [place] [address] Silvestre Maldonado MD [address] [place] [phone] 07/19/2025 12:20 PM EDT Follow Up Congestive Heart Failure Program at [address] [place] [address] Diana Coppola MD 800 [place] [address] 10/05/2025 12:30 PM EST Appointment P[facility] - [address] [address] Aparna Chang MD [address] [place] [phone] Hallway, Pft Walk 10/05/2025 1:00 PM EST Appointment PULMON[facility]CTION LABORATORY - [address] [place] [address] Aparna Chang MD [address] [place] [phone] 1, Pft Procedure Room 10/05/2025 2:00 PM EST Office Visit [facility] [address] [phone] Aparna Chang MD [address] [place] [phone] documented as of this encounter Visit Diagnoses Not on filedocumented in this encounter Care Teams Marketing Editor Relationship Specialty Start Date End Date Jace Blake DO [address] [place] [address] PCP - General Family Medicine 08/01/14 documented as of this encounter
--- OUTSIDE RECORDS SUMMARY | 2025-03-31 13:02 | XMS_ITS | Encounter Summary ---
Author Organization [facility] and [facility] Address [address] [place] [address] Care Team Providers Care Upholstery Technician Name Role Phone HaydenJace Primary Care Provider [phone] Encounter Details Date Type Department Care Team (Latest Contact Info) Description 06/10/2017 Transcribed Orders [facility] [address] [place] [address] Aki Ross MD [address] [address] Paroxysmal atrial fibrillation (Primary Dx) Social History Tobacco Use Types [...] EDT Follow Up Neuromuscular Medicine at [address] 046669 Silvestre Maldonado MD [address] [place] [address] [phone] 07/19/2025 12:20 PM EDT Follow Up Congestive Heart Failure Program at 800 [facility] [address] [place] [address] Diana Coppola MD 800 [place] [address] 10/05/2025 12:30 PM EST Appointment PUL[facility]AT[facility] - [address] [address] Aparna Chang MD [address] [place] [phone] Hallway, Pft Walk 10/05/2025 1:00 PM EST Appointment PULMON[facility]CTION LABORATORY - [address] [place] [address] Aparna Chang MD [address] [place] [phone] 1, Pft Procedure Room 10/05/2025 2:00 PM EST Office Visit [facility] [address] [phone] Aparna Chang MD [address] [place] [phone] documented as of this encounter Visit Diagnoses Diagnosis Paroxysmal atrial fibrillation (HC Code)- Primary Atrial fibrillation documented in this encounter Care Teams Upholstery Technician Relationship Specialty Start Date End Date Jace Blake DO [address] [place] [address] PCP - General Family Medicine 08/01/14 documented as of this encounter
--- OUTSIDE RECORDS SUMMARY | 2025-03-31 13:02 | XMS_ITS | Encounter Summary ---
Author Organization [facility] and [facility] Address [address] [place] [address] Care Team Providers Care Road Driver Name Role Phone Blake, Gary Primary Care Provider [phone] Encounter Details Date Type Department Care Team (Late Contact Info) Description 09/22/2016 Scanned Document Gastrointestinal Cancers Program at [address] [address] Chino Cordova MD PhD [address] [place] [phone] Social History Tobacco Use Types Packs/Day Years [...] EDT Follow Up Neuromuscular Medicine at [address] [address] Silvestre Maldonado MD [address] [place] [address], [place] [phone] 07/19/2025 12:20 PM EDT Follow Up Congestive Heart Failure Program at 800 [facility] [address] [place] [address] Diana Coppola MD 800 [place] [address] 10/05/2025 12:30 PM EST Appointment PULMONARY FUNCTION LABORATORY - [address] [address] Aparna Chang MD [address] [place] [phone] Hallway, Pft Walk 10/05/2025 1:00 PM EST Appointment PULMONARY FUNCTION LABORATORY - [address] [place] [address] Aparna Chang MD [address] [place] [phone] 1, Pft Procedure Room 10/05/2025 2:00 PM EST Office Visit [facility] [address] [phone] Aparna Chang MD [address] [place] [phone] documented as of this encounter Visit Diagnoses Not on filedocumented in this encounter Care Teams Road Driver Relationship Specialty Start Date End Date Jace Blake DO [address] [place] [address] PCP - General Family Medicine 08/01/14 documented as of this encounter
--- OUTSIDE RECORDS SUMMARY | 2025-03-31 13:02 | XMS_ITS | Encounter Summary ---
Author Organization [facility] Address [address] [place] [address] Care Team Providers Care Flat Lock Machine Operator Name Role Phone Jace Blake MD Primary Care Provider Provider, Rachid GARCIA Unavailable Unavaila Andres Topete MD Unavailable [phone] Aki Ross MD Unavailable [phone] Ursula Boo MD Unavailable Rocio Youssef PA-C Unavailable Emeterio Valencia MD Unavailable Diana Coppola MD Unavailable Encounter Details Date Type Department Care Team (Late st Contact Info) Description 06/08/2020 Scanned Document [facility] [address] [place] [address] Ursula Boo MD [address] [place] [phone] Social History Tobacco Use Types Packs/Day [...] 10:00 AM EDT Office Visit [facility] [place] 45 [facility] 102 [place] [phone] Aki Ross MD [address] [place] [address] 102 [place] [address] 05/11/2025 1:40 PM EDT Office Visit [facility] Dermat[facility] [place] 35 [place] [address] Nico Bailey MD [address] [place] [address] documented as of this encounter Visit Diagnoses Not on filedocumented in this encounter Additional Health Concerns Infection Onset Date Last Indicated Resolved Time R/O Gastrointestinal Infection 03/22/2025 03/22/2025 03/23/2025 10:28 PM EDT documented as of this encounter Care Teams Flat Lock Machine Operator Relationship Specialty Start Date End Date Jace Blake MD [address] [place] [address] PCP - General Psychiatry, General 05/04/17 ProviderRachid MD 04/27/17 [place] [address] [place] [address] Tie Carrier Cardiology 07/08/19 Aki Ross MD [address] [address] Primary Tie Carrier Cardiovascular Disease 07/08/19 Ursula Boo MD [address] [address] Gastroenterology 06/07/20 Rocio Youssef PA-C [address] [place] [address] Physician Ground Instructor Basic Gastroenterology 06/07/20 Emeterio Valencia MD [address] [address] Clinician Pulmonary Medicine 06/20/20 iDana Coppola MD [address] [address] Internal Medicine 03/22/25 documented as of this encounter
--- OUTSIDE RECORDS SUMMARY | 2025-03-31 13:02 | XMS_ITS | Encounter Summary ---
Author Organization [facility] and [facility] Address [address] [place] [address] Care Team Providers Care Social Welfare Administrator Name Role Phone Blake, Gary Primary Care Provider Encounter Details Date Type Department Care Team (Late Contact Info) Description 09/22/2016 Scanned Document Gastrointestinal Cancers Program at [address] [address] Chino Cordova MD PhD [address] [place] [phone] Social History Tobacco Use Types Packs/Day Years [...] EDT Follow Up Neuromuscular Medicine at [address] [address] Silvestre Maldonado MD [address] [place] [address], [place] [phone] 07/19/2025 12:20 PM EDT Follow Up Congestive Heart Failure Program at 800 [facility] [address] [place] [address] Diana Coppola MD 800 [place] [address] 10/05/2025 12:30 PM EST Appointment PULMON[facility] FUNCTION LABORATORY - [address] [address] Aparna Chagn MD [address] [place] [phone] Hallway, Pft Walk 10/05/2025 1:00 PM EST Appointment PULMON[facility]CTION LABORATORY - [address] [place] [address] Aparna Chang MD [address] [place] [phone] 1, Pft Procedure Room 10/05/2025 2:00 PM EST Office Visit [facility] [address] [phone] Aparna Chang MD [address] [place] [phone] documented as of this encounter Visit Diagnoses Not on filedocumented in this encounter Care Teams Social Welfare Administrator Relationship Specialty Start Date End Date Jace Blake DO [address] [place] [address] PCP - General Family Medicine 08/01/14 documented as of this encounter
--- OUTSIDE RECORDS SUMMARY | 2025-03-31 13:02 | XMS_ITS | Encounter Summary ---
Author Organization [facility] and [facility] Address [address] [place] [phone] Care Team Providers Care Senior Hydrogeologist Name Role Phone BlakeJace Primary Care Provider [phone] Encounter Details Date Type Department Care Team (Late st Contact Info) Description 05/05/2016 Scanned Document Gastrointestinal Surgery at [address] [place] [address] [place] [address] Chino Cordova MD PhD [address] [place] [phone] Social History Tobacco Use Types Packs/Day Years [...] AM EDT Follow Up Neuromuscular Medicine at [address] [place] [address] [place] [address] Silvestre Maldonado MD [address] [place] [phone] 07/19/2025 12:20 PM EDT Follow Up Congestive Heart Failure Program at [address] [place] [address] Diana Coppola MD 800 [place] [address] 10/05/2025 12:30 PM EST Appointment PULMONARY FUNCTION LABORATORY - [address] [address] Aparna Chang MD [address] [place] [phone] Hallway, Pft Walk 10/05/2025 1:00 PM EST Appointment PULMONARY FUNCTION LABORATORY - [address] [place] [address] Aparna Chang MD [address] [place] [phone] 1, Pft Procedure Room 10/05/2025 2:00 PM EST Office Visit [facility] [address] [phone] Aparna Chang MD [address] [place] [phone] documented as of this encounter Visit Diagnoses Not on filedocumented in this encounter Care Teams Senior Hydrogeologist Relationship Specialty Start Date End Date Jace Blake DO [address] [place] [address] PCP - General Family Medicine 08/01/14 documented as of this encounter
--- OUTSIDE RECORDS SUMMARY | 2025-03-31 13:02 | XMS_ITS | Encounter Summary ---
Author Organization [facility] and [facility] Address [address] [place] [address] Care Team Providers Care Head Of Mathematics Name Role Phone HaydenJace Primary Care Provider [phone] Encounter Details Date Type Department Care Team (Late st Contact Info) Description 07/01/2017 Scanned Document Neurosurgery at [address] [place] [address] Teodoro Hollingsworth MD [address] [place] [phone] Social History Tobacco Use Types Packs/Day [...] EDT Follow Up Neuromuscular Medicine at [address] 3066[address] Silvestre Maldonado MD [address] [place] [phone] 07/19/2025 12:20 PM EDT Follow Up Congestive Heart Failure Program at [address] [facility] [address] [place] [address] Diana Coppola MD 800 [place] [address] 10/05/2025 12:30 PM EST Appointment PULMONARY FUNCTION LABORATORY - [address] [address] Aparna Chang MD [address] [place] [phone] Hallway, Pft Walk 10/05/2025 1:00 PM EST Appointment PULMONARY FUNCTION LABORATORY - [address] [place] [address] Aparna Chang MD [address] [place] [phone] 1, Pft Procedure Room 10/05/2025 2:00 PM EST Office Visit [facility] [address] [phone] Aparna Chang MD [address] [place] [phone] documented as of this encounter Visit Diagnoses Not on filedocumented in this encounter Care Teams Head Of Mathematics Relationship Specialty Start Date End Date Jace Blake DO [address] [place] [address] PCP - General Family Medicine 08/01/14 documented as of this encounter
--- OUTSIDE RECORDS SUMMARY | 2025-03-31 13:02 | XMS_ITS | Encounter Summary ---
Author Organization [facility] and [facility] Address [address] [place] [address] Care Team Providers Care Freight Clerk Name Role Phone Blake, Gary Primary Care Provider [phone] Encounter Details Date Type Department Care Team (Late Contact Info) Description 09/22/2016 Scanned Document Gastrointestinal Cancers Program at [address] [address] Chino Cordova MD PhD [address] [place] [phone] Social History Tobacco Use Types Packs/Day Years [...] Follow Up Neuromuscular Medicine at [address] [address] Silvestre Maldonado MD [address] [place] [address], [place] [phone] 07/19/2025 12:20 PM EDT Follow Up Congestive Heart Failure Program at [address] [facility] [address] [place] [address] Diana Coppola MD 800 [place] [address] 10/05/2025 12:30 PM EST Appointment PULMONARY FUNCTION LABORATORY - [address] [address] Aparna Chang MD [address] [place] [phone] Hallway, Pft Walk 10/05/2025 1:00 PM EST Appointment PULMONARY FUNCTION LABORATORY - [address] [place] [address] Aparna Chang MD [address] [place] [phone] 1, Pft Procedure Room 10/05/2025 2:00 PM EST Office Visit [facility] [address] [phone] Aparna Chang MD [address] [place] [phone] documented as of this encounter Visit Diagnoses Not on filedocumented in this encounter Care Teams Freight Clerk Relationship Specialty Start Date End Date Jace Blake DO [address] [place] [address] PCP - General Family Medicine 08/01/14 documented as of this encounter
--- OUTSIDE RECORDS SUMMARY | 2025-03-31 13:02 | XMS_ITS | Encounter Summary ---
Author Organization [facility] and [facility] Address [address] [place] [phone] Care Team Providers Care Storage Battery Charger Name Role Phone HaydenJace Primary Care Provider [phone] Encounter Details Date Type Department Care Team (Late st Contact Info) Description 06/10/2017 Scanned Document Neurosurgery at [address] [place] [address] Teodoro Hollingsworth MD [address] [place] [phone] Social History Tobacco Use Types Packs/Day [...] EDT Follow Up Neuromuscular Medicine at [address] [id number] Silvestre Maldonado MD [address] [place] [phone] 07/19/2025 12:20 PM EDT Follow Up Congestive Heart Failure Program at 800 [facility] [address] [place] [address] Diana Coppola MD 800 [place] [address] 10/05/2025 12:30 PM EST Appointment [facility] - [address] [address] Aparna Chang MD [address] [place] [phone] Hallway, Pft Walk 10/05/2025 1:00 PM EST Appointment [facility] - [address] [place] [address] Aparna Chang MD [address] [place] [phone] 1, Pft Procedure Room 10/05/2025 2:00 PM EST Office Visit [facility] [address] [phone] Aparna Chang MD [address] [place] [phone] documented as of this encounter Visit Diagnoses Not on filedocumented in this encounter Care Teams Storage Battery Charger Relationship Specialty Start Date End Date Jcae Blake DO [address] [place] [address] PCP - General Family Medicine 08/01/14 documented as of this encounter
--- OUTSIDE RECORDS SUMMARY | 2025-03-31 13:02 | XMS_ITS | Encounter Summary ---
Author Organization [facility] and [facility] Address [address] [place] [phone] Care Team Providers Care Research Interviewer Name Role Phone BlakeJace Primary Care Provider [phone] Encounter Details Date Type Department Care Team (Late st Contact Info) Description 06/06/2015 Scanned Document Gastrointestinal Surgery at [address] [place] [address] [place] [address] Chino Cordova MD PhD [address] [place] [phone] Social History Tobacco Use Types Packs/Day Years [...] AM EDT Follow Up Neuromuscular Medicine at [address] [place] [address] [place] [address] Silvestre Maldonado MD [address] [place] [phone] 07/19/2025 12:20 PM EDT Follow Up Congestive Heart Failure Program at [address] [place] [address] Diana Coppola MD 800 [place] [address] 10/05/2025 12:30 PM EST Appointment [facility] - [address] [address] Aparna Chang MD [address] [place] [phone] Hallway, Pft Walk 10/05/2025 1:00 PM EST Appointment [facility] - [address] [place] [address] Aparna Chang MD [address] [place] [phone] 1, Pft Procedure Room 10/05/2025 2:00 PM EST Office Visit [facility] [address] [phone] Aparna Chang MD [address] [place] [phone] documented as of this encounter Visit Diagnoses Not on filedocumented in this encounter Care Teams Research Interviewer Relationship Specialty Start Date End Date Jace Blake DO [address] [place] [address] PCP - General Family Medicine 08/01/14 documented as of this encounter
--- OUTSIDE RECORDS SUMMARY | 2025-03-31 13:02 | XMS_ITS | Encounter Summary ---
Author Organization [facility] and [facility] Address [address] [place] [phone] Care Team Providers Care Radiophone Operator Name Role Phone HaydenJace Primary Care Provider [phone] Encounter Details Date Type Department Care Team (Latest Contact Info) Description 04/19/2019 Transcribed Orders [facility] [address] [place] [address] Aki Ross MD [address] [phone] Paroxysmal atrial fibrillation (Primary Dx) [...] Follow Up Neuromuscular Medicine at [address] [address] Silvestre Maldonado MD [address] [place] [address], [place] [phone] 07/19/2025 12:20 PM EDT Follow Up Congestive Heart Failure Program at 800 [facility] [address] [place] [address] Diana Coppola MD 800 [place] [address] 10/05/2025 12:30 PM EST Appointment [facility] - [address] [address] Aparna Chang MD [address] [place] [phone] Hallway, Pft Walk 10/05/2025 1:00 PM EST Appointment [facility] - [address] [place] [address] Aparna Chang MD [address] [place] [phone] 1, Pft Procedure Room 10/05/2025 2:00 PM EST Office Visit [facility] [address] [phone] Aparna Chang MD [address] [place] [phone] documented as of this encounter Visit Diagnoses Diagnosis Paroxysmal atrial fibrillation (HC Code)- Primary Atrial fibrillation documented in this encounter Care Teams Radiophone Operator Relationship Specialty Start Date End Date Jace Blake DO [address] [place] [address] PCP - General Family Medicine 08/01/14 documented as of this encounter
--- OUTSIDE RECORDS SUMMARY | 2025-03-31 13:02 | XMS_ITS | Encounter Summary ---
Author Organization [facility] and [facility] Address [address] [place] [phone] Care Team Providers Care Desilverizer Name Role Phone HaydenJace Primary Care Provider [phone] Encounter Details Date Type Department Care Team (Late st Contact Info) Description 06/04/2017 Scanned Document Neurosurgery at [address] [place] [address] Teodoro Hollingsworth MD [address] [place] [phone] Social History Tobacco Use Types Packs/Day [...] Follow Up Neuromuscular Medicine at [address] 220069 Silvestre Maldonado MD [address] [place] [phone] 07/19/2025 12:20 PM EDT Follow Up Congestive Heart Failure Program at 800 [facility] [address] [place] [address] Diana Coppola MD 800 [place] [address] 10/05/2025 12:30 PM EST Appointment [facility] - [address] [address] Aparna Chang MD [address] [place] [phone] Hallway, Pft Walk 10/05/2025 1:00 PM EST Appointment [facility] - [address] [place] [address] Aparna Chang MD [address] [place] [phone] 1, Pft Procedure Room 10/05/2025 2:00 PM EST Office Visit [facility] [address] [phone] Aparna Chang MD [address] [place] [phone] documented as of this encounter Visit Diagnoses Not on filedocumented in this encounter Care Teams Desilverizer Relationship Specialty Start Date End Date Jace Blake DO [address] [place] [address] PCP - General Family Medicine 08/01/14 documented as of this encounter
--- OUTSIDE RECORDS SUMMARY | 2025-03-31 13:02 | XMS_ITS | Encounter Summary ---
Author Organization [facility] and [facility] Address [address] [place] [phone] Care Team Providers Care Camera Operator Name Role Phone BlakeJace Primary Care Provider [phone] Encounter Details Date Type Department Care Team (Late st Contact Info) Description 08/04/2014 Scanned Document Gastrointestinal Surgery at [address] [place] [address] [place] [address] Chino Cordova MD PhD [address] [place] [phone] Social History Tobacco Use Types Packs/Day Years [...] EDT Follow Up Neuromuscular Medicine at [address] [place] [address] [place] [address] Silvestre Maldonado MD [address] [place] [phone] 07/19/2025 12:20 PM EDT Follow Up Congestive Heart Failure Program at [address] [place] [address] Diana Coppola MD 800 [facility] [place] [phone] 10/05/2025 12:30 PM EST Appointment [facility] - [address] [address] Aparna Chang MD [address] [place] [phone] Hallway, Pft Walk 10/05/2025 1:00 PM EST Appointment [facility] - [address] [place] [address] Aparna Chang MD [address] [place] [phone] 1, Pft Procedure Room 10/05/2025 2:00 PM EST Office Visit [facility] [address] [phone] Aparna Chang MD [address] [place] [phone] documented as of this encounter Visit Diagnoses Not on filedocumented in this encounter Care Teams Camera Operator Relationship Specialty Start Date End Date Jace Blake DO [address] [place] [address] PCP - General Family Medicine 08/01/14 documented as of this encounter
--- OUTSIDE RECORDS SUMMARY | 2025-03-31 13:02 | XMS_ITS | Encounter Summary ---
Author Organization [facility] and [facility] Address [address] [place] [phone] Care Team Providers Care Silverware Buffer Name Role Phone BlakeJace Primary Care Provider [phone] Encounter Details Date Type Department Care Team (Late st Contact Info) Description 07/18/2015 Scanned Document Gastrointestinal Surgery at [address] [place] [address] Fourth [place] [address] Chino Cordova MD PhD [address] [place] [phone] Social History Tobacco Use Types Packs/Day Years [...] AM EDT Follow Up Neuromuscular Medicine at [address] [place] [address] [place] [address] Silvestre Maldonado MD [address] [place] [phone] 07/19/2025 12:20 PM EDT Follow Up Congestive Heart Failure Program at [address] [place] [address] Diana Coppola MD 800 [place] [phone] 10/05/2025 12:30 PM EST Appointment [facility] - [address] [address] Aparna Chang MD [address] [place] [phone] Hallway, Pft Walk 10/05/2025 1:00 PM EST Appointment [facility] - [address] [place] [address] Aparna Chang MD [address] [place] [phone] 1, Pft Procedure Room 10/05/2025 2:00 PM EST Office Visit [facility] [address] [phone] Aparna Chang MD [address] [place] [phone] documented as of this encounter Visit Diagnoses Not on filedocumented in this encounter Care Teams Silverware Buffer Relationship Specialty Start Date End Date Jace Blake DO [address] [place] [address] PCP - General Family Medicine 08/01/14 documented as of this encounter
--- OUTSIDE RECORDS SUMMARY | 2025-03-31 13:02 | XMS_ITS | Encounter Summary ---
Author Organization [facility] and [facility] Address [address] [place] [phone] Care Team Providers Care Finisher Machine Name Role Phone HaydenJace Primary Care Provider [phone] Encounter Details Date Type Department Care Team (Late st Contact Info) Description 05/11/2017 Scanned Document Neurosurgery at [address] [place] [address] Teodoro Hollingsworth MD [address] [place] [phone] Social History Tobacco Use Types Packs/Day [...] EDT Follow Up Neuromuscular Medicine at [address] 593609 Silvestre Maldonado MD [address] [place] [phone] 07/19/2025 12:20 PM EDT Follow Up Congestive Heart Failure Program at 800 [facility] [address] [place] [address] Diana Coppola MD 800 [place] [address] 10/05/2025 12:30 PM EST Appointment [facility] - [address] [address] Aparna Chang MD [address] [place] [phone] Hallway, Pft Walk 10/05/2025 1:00 PM EST Appointment [facility] - [address] [place] [address] Aparna Chang MD [address] [place] [phone] 1, Pft Procedure Room 10/05/2025 2:00 PM EST Office Visit [facility] [address] [phone] Aparna Chang MD [address] [place] [phone] documented as of this encounter Visit Diagnoses Not on filedocumented in this encounter Care Teams Finisher Machine Relationship Specialty Start Date End Date Jace Blake DO [address] [place] [address] PCP - General Family Medicine 08/01/14 documented as of this encounter
--- OUTSIDE RECORDS SUMMARY | 2025-03-31 13:02 | XMS_ITS | Encounter Summary ---
Author Organization [facility] and [facility] Address [address] [place] [phone] Care Team Providers Care Financial Institution Treasurer Name Role Phone HaydenJace Primary Care Provider [phone] Encounter Details Date Type Department Care Team (Late st Contact Info) Description 05/11/2017 Scanned Document Neurosurgery at [address] [place] [address] Teodoro Hollingsworth MD [address] [place] [phone] Social History Tobacco Use Types Packs/Day [...] Follow Up Neuromuscular Medicine at [address] 298349 Silvestre Maldonado MD [address] [place] [phone] 07/19/2025 12:20 PM EDT Follow Up Congestive Heart Failure Program at 800 [facility] [address] [place] [address] Diana Coppola MD 800 [facility] [address] 10/05/2025 12:30 PM EST Appointment [facility] - [address] [address] Aparna Chang MD [address] [place] [phone] Hallway, Pft Walk 10/05/2025 1:00 PM EST Appointment [facility] - [address] [place] [address] Aparna Chang MD [address] [place] [phone] 1, Pft Procedure Room 10/05/2025 2:00 PM EST Office Visit [facility] [address] [phone] Aparna Chang MD [address] [place] [phone] documented as of this encounter Visit Diagnoses Not on filedocumented in this encounter Care Teams Financial Institution Treasurer Relationship Specialty Start Date End Date Jace Blake DO [address] [place] [address] PCP - General Family Medicine 08/01/14 documented as of this encounter
--- OUTSIDE RECORDS SUMMARY | 2025-03-31 13:02 | XMS_ITS | Encounter Summary ---
Author Organization [facility] and [facility] Address [address] [place] [phone] Care Team Providers Care Calender Worker Helper Name Role Phone HaydenJace Primary Care Provider [phone] Encounter Details Date Type Department Care Team (Late st Contact Info) Description 05/27/2017 Scanned Document Neurosurgery at [address] [place] [address] Teodoro Hollingsworth MD [address] [place] [phone] Social History Tobacco Use Types Packs/Day [...] EDT Follow Up Neuromuscular Medicine at [address] 1798[address] Silvestre Maldonado MD [address] [place] [phone] 07/19/2025 12:20 PM EDT Follow Up Congestive Heart Failure Program at 800 [facility] [address] [place] [address] Diana Coppola MD 800 [place] [address] 10/05/2025 12:30 PM EST Appointment [facility] - [address] [address] Aparna Chang MD [address] [place] [phone] Hallway, Pft Walk 10/05/2025 1:00 PM EST Appointment [facility] - [address] [place] [address] Aparna Chang MD [address] [place] [phone] 1, Pft Procedure Room 10/05/2025 2:00 PM EST Office Visit [facility] [address] [phone] Aparna Chang MD [address] [place] [phone] documented as of this encounter Visit Diagnoses Not on filedocumented in this encounter Care Teams Calender Worker Helper Relationship Specialty Start Date End Date Jace Blake DO [address] [place] [address] PCP - General Family Medicine 08/01/14 documented as of this encounter
--- OUTSIDE RECORDS SUMMARY | 2025-03-31 13:02 | XMS_ITS | Encounter Summary ---
Author Organization [facility] and [facility] Address [address] [place] [phone] Care Team Providers Care Lead Handler Name Role Phone BlakeJace Primary Care Provider [phone] Encounter Details Date Type Department Care Team (Late st Contact Info) Description 06/12/2015 Scanned Document Gastrointestinal Surgery at [address] [place] [address] [place] [address] Chino Cordova MD PhD [address] [place] [phone] Social History Tobacco Use Types Packs/Day Years [...] AM EDT Follow Up Neuromuscular Medicine at [address] [place] [address] [place] [address] Silvestre Maldonado MD [address] [place] [phone] 07/19/2025 12:20 PM EDT Follow Up Congestive Heart Failure Program at [address] [place] [address] Diana Coppola MD 800 [place] [address] 10/05/2025 12:30 PM EST Appointment [facility] - [address] [address] Aparna Chang MD [address] [place] [phone] Hallway, Pft Walk 10/05/2025 1:00 PM EST Appointment [facility] - [address] [place] [address] Aparna Chang MD [address] [place] [phone] 1, Pft Procedure Room 10/05/2025 2:00 PM EST Office Visit [facility] [address] [phone] Aparna Chang MD [address] [place] [phone] documented as of this encounter Visit Diagnoses Not on filedocumented in this encounter Care Teams Lead Handler Relationship Specialty Start Date End Date Jace Blake DO [address] [place] [address] PCP - General Family Medicine 08/01/14 documented as of this encounter
[2025-03-31 14:31] LABS: Anion Gap 12 (12-20); Blood Urea Nitrogen 11 mg/dL (9-16); Calcium 9.2 mg/dL (8.4-10.2); Carbon Dioxide 25 mmol/L (22-29); Chloride 108 mmol/L (96-108); Estimated Glomerular Filt Rate > 60; Glucose Random 91 mg/dL (60-115); Potassium 4.1 mmol/L (3.3-5.1); Sodium 141 mmol/L (135-145)
== END 2025-03-31 12:56 | disposition home or self-care (01) ==
LOC: HO.LAB 12:55
PROVIDERS: PCP Family Medicine; Visit Provider Internal Medicine Hypertension Specialist
DX: E87.6 Hypokalemia (principal)
CPT/HCPCS: 36415; 80048

== ENCOUNTER 2025-04-03 11:09 | Outpatient (AMB) | payer MEDICARE, SELFPAY ==
[2025-04-03 11:25] VITALS: BP 126/78; PULSE 74; O2SAT 97; BMI 27.3
--- NOTE | 2025-04-03 11:25 | HO.NEPHOV ---
Vital Signs 04/03/25 11:25 Height 6 ft Weight 201 lb BMI 27.3 BP 126/78 Blood Pressure Location Lt brachial Position Sitting Pulse 74 Pulse Source Pulse Oximeter Pulse Oximetry (%) 97 Oxygen Delivery Method Room Air Intake Visit Reasons: 4 month follow up Slicer Machine Operator Required: No Accompanied by: Self / Same As Patient Allergies No Known Allergies Allergy (Verified 04/03/25 11:28) Medication List - Last Reconciled 04/03/25 by Ronni Garcia MD albuterol sulfate 90 mcg/actuation 2 puffs inhalation Q6H PRN apixaban (Eliquis) 5 mg PO BID atorvastatin 20 mg PO DAILY dexlansoprazole 60 mg PO DAILY doxycycline hyclate 100 mg PO BID empagliflozin (Jardiance) 10 mg PO DAILY furosemide 20 mg PO DAILY gabapentin 800 mg PO DAILY meclizine 12.5 mg PO DAILY PRN metoprolol succinate ER 100 mg PO DAILY paroxetine HCl 20 mg PO DAILY umeclidinium-vilanterol 62.5-25 mcg/actuation (Anoro Ellipta) 1 ea inhalation DAILY HPI Comments Details: Kimberly is a pleasant 74-year-old woman with multiple medical problems including longstanding hypertension diastolic heart failure and COPD. She has been on torsemide 20 mg a day along with potassium supplementation. She was found to have mild CKD with a elevated serum creatinine and mild alkalosis with a might hypokalemia. Two weeks ago she stopped taking torsemide and she has been watching her weight. She is still taking the potassium tab At present she has no shortness of breath. No nausea or vomiting. No edema. No urinary symptoms. 11/28/23 ;Gained 4 lbs ;No edema ;K was 4.7 without diuretics and Alkalosis resolved 12/19/2024. Leg edema has improved. No new issues. 04/03/25 Last week of Dec she was infected with Rotavirus while in [place] Diarrhea on and off. No urinary issues [facility] Medical History (Updated 11/15/24 @ 11:41 by Ronni Garcia MD) Weakness Vitamin D deficiency Vertigo Transaminitis Systolic heart failure Sinusitis Pulmonary hypertension Prediabetes Peripheral neuropathy Osteopenia Obstructive sleep apnea syndrome NAFLD (nonalcoholic fatty liver disease) Lung nodule History of IBS Interstitial lung disease Insomnia Hypoxia Hypokalemia Hyperlipemia Colonic polyp HTN (hypertension) GI bleed Atrial fibrillation Iron deficiency anemia Cardiac pacemaker Gastroesophageal reflux disease LA (generalized anxiety disorder) Fatty liver Dyspnea on effort Dyspnea Depressive disorder Crohn's disease of large bowel Cobalamin deficiency CKD (chronic kidney disease), stage II Chronic systolic heart failure Chronic obstructive lung disease Chronic kidney disease, stage 3 Chronic diastolic heart failure Carotid artery stenosis Benign colon polyp Benign essential hypertension Surgical History History of total abdominal hysterectomy Hx of appendectomy History of neck surgery History of laminectomy Hx of cholecystectomy (~03/2019) Physical Exam Vital Signs: Last Vital Signs Pulse 74 04/03/25 11:25 BP 126/78 04/03/25 11:25 Pulse Ox 97 04/03/25 11:25 Oxygen Delivery Method Room Air 04/03/25 11:25 BMI result Body Mass Index 27.3 Comfortable Neck supple no JVD. Lungs entry equal no rales. Heart S1-S2 heard no gallop or rub. Abdomen soft nontender. Neuro alert awake oriented. No asterixis. Extremities no edema. Results Reviewed Nephrology Results: Hgb 13.8 g/dl (12.0-16.0) 11/14/24 WBC 9.7 X10*3/uL (4.8-10.8) 11/14/24 Plt Count 277 X10*3/uL (160-400) 11/14/24 Sodium 141 mmol/L (135-145) 03/31/25 Potassium 4.1 mmol/L (3.3-5.1) 03/31/25 Chloride 108 mmol/L (96-108) 03/31/25 Carbon Dioxide 25 mmol/L (22-29) 03/31/25 BUN 11 mg/dL (9-16) 03/31/25 Creatinine 0.78 mg/dL (0.5-1.4) 03/31/25 Calcium 9.2 mg/dL (8.4-10.2) 03/31/25 Urine Protein Negative mg/dL (Neg-Trace) 11/14/24 Assessment & Plan Assessment & Plan (1) CKD (chronic kidney disease): Code(s): N18.9 - Chronic kidney disease, unspecified Category: Medical (2) Hypokalemia: Code(s): E87.6 - Hypokalemia Category: Medical Plan 74-year-old woman with mild CKD in a setting of congestive heart failure. She probably has a component of hypoperfusion from the use of diuretics. She could have age-related nephron loss leading to mild CKD. Recent imaging did not reveal any obstruction. Recent urine studies were benign and therefore glomerular nephritis or interstitial disease seem unlikely. She has mild alkalosis with hypokalemia both could be due to the use of diuretics. She has stopped taking the diuretics for the past 2 weeks. I will recheck serum electrolytes today. If she has persistent hypokalemia or alkalosis despite stopping the torsemide then we will proceed with further workup including plasma renin activity and aldosterone levels. Since she is not taking the torsemide I have asked her to stop taking potassium supplementation. 12/19/24 Hypokalemia and Alkalosis resolved after stopping diuretics PA and PRA normal Keep LASIX 20 mg PO QD and monitor K Advised to consume potassium rich foods like oranges and bananas. Recheck renal panel PRN. If the potassium stays less than 3.2 I will add potassium supplementation. stay on low salt diet Orders: Orders Basic Metabolic Panel 6 Months E87.6 - Hypokalemia Coding Level of Care Code Est Pt Level 4 (56131) Diagnoses CKD (chronic kidney disease) N18.9 Hypokalemia E87.6
--- OUTSIDE RECORDS SUMMARY | 2025-04-03 11:58 | XMS_ITS | Encounter Summary ---
Author Organization [facility] Address [address] [place] [address] Care Team Providers Care Stockkeeper Name Role Phone Jace Blake MD Primary Care Provider Provider, Rachid GARCIA Unavailable Unavaila Andres Topete MD Unavailable Aki Ross MD Unavailable Ursula Boo MD Unavailable Rocio Youssef PA-C Unavailable Emeterio Valencia MD Unavailable Diana Coppola MD Unavailable Reason for Visit * Reason Comments Prior Authorization XIFAXAN 550MG TABLET S Encounter Details Date Type Department Care Team (Late st Contact Info) Description 12/15/2024 Telephone [facility] [address] [place] [address] Ursula Boo MD 5 [facility] [address]nd [place] [address] Prior Authorization (XIFAXAN 550MG TABLETS) [...] Medication/Strength: XIFAXAN 550MG TABLETS Quantity/Day Supply: Insurance: [employer] Plan Type: MEDICARE Reference Number:N/A Approval Dates: 09/16/2024 through 12/29/2024 May fill with [facility] Pharmacy: YES If lockout, Preferred Pharmacy: NO Copay (>$5 Complete FA Review): 20.00 340B Pricing (subject to change quarterly or on prescription renewal): NO Has patient consented to FA? NO CONSENT ON FILE Additional Information: *eVoucherMsg*Not eligible; Govt Plan * Telephone Encounter - Edie Jules - 12/15/2024 10:47 AM EST Submitted Prior Authorization to DALE De La Cruz via [facility] Estimated turnaround time: 24-72 HOURS TAT Additional Information: (Foster: [id number]) documented in this encounter Plan of Treatment Upcoming Encounters Date Type Department Care Team (Late st Contact Info) Description 05/04/2025 10:00 AM EDT Office Visit [facility] Heart & Vascular [place] [address] [address] Aki Ross MD [address] [place] [phone] 05/11/2025 1:40 PM EDT Office Visit [facility] Dermatology [place] [address] [place] [address] Nico Bailey MD 35 [place] [address] documented as of this encounter Visit Diagnoses Not on filedocumented in this encounter Additional Health Concerns Infection Onset Date Last Indicated Resolved Time R/O Gastrointestinal Infection 03/22/2025 03/22/2025 03/23/2025 10:28 PM EDT documented as of this encounter Care Teams Stockkeeper Relationship Specialty Start Date End Date Jace Blake MD [address] [place] [address] PCP - General Psychiatry, General 05/04/17 ProviderRachid MD 04/27/17 Andres Lakhani MD [address] [place] [address] Shipping Point Inspector Cardiology 07/08/19 Aki Ross MD [address] [place] [address] Primary Shipping Point Inspector Cardiovascular Disease 07/08/19 Ursula Boo MD [address] [place] [address] Gastroenterology 06/07/20 Rocio Youssef PA-C [address] [address] Physician Power Shear Operator Gastroenterology 06/07/20 Emeterio Valencia MD [address] [address] Clinician Pulmonary Medicine 06/20/20 Diana Coppola MD [address] Michael Lira [address] [place] [address] Internal Medicine 03/22/25 documented as of this encounter
--- OUTSIDE RECORDS SUMMARY | 2025-04-03 11:58 | XMS_ITS | Continuity of Care Document ---
Author Organization [facility] Address [address] [facility] [address] [place] [address] Phone Care Team Providers Care Work From Home Name Role Phone Awais Alford MD Unavailable Unavailable Advance Directives Directive Yes / No Effective Date File Name No Information Encounters Encounter Description Practice Location Reason(s) For Visit Diagnoses Date Provider Providers Copied on Encounter [facility], [address] [place] [address] 200, [place], [place], [id number], [phone] [facility] Office No Information 3 Rocío Ernandez. [address] [place], [place], [place], [id number] . tel: [phone] Family History Family Member Type Diagnosis Age [...]
--- OUTSIDE RECORDS SUMMARY | 2025-04-03 11:58 | XMS_ITS | Encounter Summary ---
Author Organization [facility] Address [address] [place] [address] Care Team Providers Care Ethyl Blender Name Role Phone Jace Blake MD Primary Care Provider Provider, Rachid GARCIA Unavailable Unavaila Andres Topete MD Unavailable Aki Ross MD Unavailable [phone] Ursula Boo MD Unavailable Rocio Youssef PA-C Unavailable [phone] Emeterio Valencia MD Unavailable Diana Coppola MD Unavailable Encounter Details Date Type Department Care Team (Late st Contact Info) Description 04/29/2022 Telephone [facility] [address] [place] [address] Tl Mancera, CURVE CLEANER 5 [facility] [address] [place] [address] Social History Tobacco Use Types [...] we could fax her labs to the [email or web address] lab. Pt said she misplace her slip and the [email or web address] lab uses the [employer] system. Pt is currently at the lab waiting. Please advise documented in this encounter Plan of Treatment Upcoming Encounters Date Type Department Care Team ([facility] st Contact Info) Description 05/04/2025 10:00 AM EDT Office Visit [facility] Heart & Vascular [place] [address] [phone] Aki Ross MD [address] [place] [address] 05/11/2025 1:40 PM EDT Office Visit [facility] Dermatology [address] [phone] Nico Bailey MD [address] [place] [address] documented as of this encounter Visit Diagnoses Not on filedocumented in this encounter Additional Health Concerns Infection Onset Date Last Indicated Resolved Time R/O Gastrointestinal Infection 03/22/2025 03/22/2025 03/23/2025 10:28 PM EDT documented as of this encounter Care Teams Ethyl Blender Relationship Specialty Start Date End Date Jace Blake MD [address] [place] [address] PCP - General Psychiatry, General 05/04/17 Rachid Robles MD 04/27/17 Andres Lakhani MD [address] [place] [address] Mutton Puncher Cardiology 07/08/19 Aki Ross MD [address] [place] [address] Primary Mutton Puncher Cardiovascular Disease 07/08/19 Ursula Boo MD [address] [place] [address] Gastroenterology 06/07/20 Rocio Youssef PA-C [address] [place] [address] Physician Product/Device Technologist Gastroenterology 06/07/20 Emeterio Valencia MD [address] [address] Clinician Pulmonary Medicine 06/20/20 Diana Coppola MD [address] [address] Internal Medicine 03/22/25 documented as of this encounter
--- OUTSIDE RECORDS SUMMARY | 2025-04-03 11:58 | XMS_ITS | Encounter Summary ---
Author Organization [facility] Address [address] [place] [address] Care Team Providers Care Pmo Business Analyst Name Role Phone Jace Blake MD Primary Care Provider Provider, Rachid GARCIA Unavailable Unavaila Andres Topete MD Unavailable [phone] Aki Ross MD Unavailable [phone] Ursula Boo MD Unavailable [phone] Rocio Youssef PA-C Unavailable Emeterio Valencia MD Unavailable Diana Coppola MD Unavailable Encounter Details Date Type Department Care Team (Late st Contact Info) Description 04/23/2021 Scanned Document [facility] Heart & Vascular [place] [address] [place] [address] Provider, Tom, [address] [place] [address] Social History Tobacco Use Types Packs/Day Years [...] [facility] [place] [address] [place] [address] Aki Ross MD [address] [place] [address] 102 [place] [address] 05/11/2025 1:40 PM EDT Office Visit [facility] Dermatology [place] 35 [place] [phone] Nico Bailey MD [address] [place] [address] documented as of this encounter Visit Diagnoses Not on filedocumented in this encounter Additional Health Concerns Infection Onset Date Last Indicated Resolved Time R/O Gastrointestinal Infection 03/22/2025 03/22/2025 03/23/2025 10:28 PM EDT documented as of this encounter Care Teams Pmo Business Analyst Relationship Specialty Start Date End Date Jace Blake MD [address] [place] [address] PCP - General Psychiatry, General 05/04/17 ProviderRachid MD 04/27/17 Andres Lakhani MD [address] [place] [address] Electrical Maintenance Man Cardiology 07/08/19 Aki Ross MD [address] [address] Primary Electrical Maintenance Man Cardiovascular Disease 07/08/19 Ursula Boo MD [address] [address] Gastroenterology 06/07/20 Rocio Youssef PA-C [address] [address] Physician Flange Turner Gastroenterology 06/07/20 Emeterio Valencia MD [address] [address] Clinician Pulmonary Medicine 06/20/20 Diana Coppola MD 800 [facility] [address]nd [place] [address] Internal Medicine 03/22/25 documented as of this encounter
--- OUTSIDE RECORDS SUMMARY | 2025-04-03 11:58 | XMS_ITS | Encounter Summary ---
Author Organization [facility] Address [address] [place] [address] Care Team Providers Care Marine Engine Machinist Apprentice Name Role Phone Jace Blake MD Primary Care Provider Provider, Rachid GARCIA Unavailable Unavaila Andres Topete MD Unavailable Aki Ross MD Unavailable [phone] Ursula Boo MD Unavailable Rocio Youssef PA-C Unavailable Emeterio Valencia MD Unavailable Diana Coppola MD Unavailable Encounter Details Date Type Department Care Team (Late st Contact Info) Description 06/02/2023 Scanned Document [facility] Heart & Vascular [place] [address] [address] Aki Ross MD [address] [place] [address] Social History Tobacco Use Types Packs/Day [...] [facility] Heart & Vascular [place] [address] [phone] Aki Ross MD [address] [place] [address] 05/11/2025 1:40 PM EDT Office Visit [facility] Dermatology [address] [address] Nico Bailey MD [address] [place] [address] documented as of this encounter Visit Diagnoses Not on filedocumented in this encounter Additional Health Concerns Infection Onset Date Last Indicated Resolved Time R/O Gastrointestinal Infection 03/22/2025 03/22/2025 03/23/2025 10:28 PM EDT documented as of this encounter Care Teams Marine Engine Machinist Apprentice Relationship Specialty Start Date End Date Jace Blake MD [address] [place] [address] PCP - General Psychiatry, General 05/04/17 Rachid Robles MD 04/27/17 Andres Lakhani MD [address] [place] [address] Punch Card Operator Cardiology 07/08/19 Aki Ross MD [address] [place] [address] Primary Punch Card Operator Cardiovascular Disease 07/08/19 Ursula Boo MD [address] [place] [address] Gastroenterology 06/07/20 Rocio Youssef PA-C [address] [place] [address] Physician Financial Reporting Analyst Gastroenterology 06/07/20 Emeterio Valencia MD [address] [place] [address] Clinician Pulmonary Medicine 06/20/20 Diana Coppola MD [address] [place] [address] Internal Medicine 03/22/25 documented as of this encounter
--- OUTSIDE RECORDS SUMMARY | 2025-04-03 11:58 | XMS_ITS | Encounter Summary ---
Author Organization [facility] Address [address] [place] [address] Care Team Providers Care Visitor Services Associate Name Role Phone Jace Blake MD Primary Care Provider [phone] Provider, Rachid GARCIA Unavailable Unavaila Andres Topete MD Unavailable [phone] Aki Ross MD Unavailable [phone] Ursula Boo MD Unavailable [phone] Rocio Youssef PA-C Unavailable Emeterio Valencia MD Unavailable Diana Coppola MD Unavailable Reason for Visit * Reason Comments Medication Refill Encounter Details Date Type Department Care Team (Late st Contact Info) Description 05/28/2023 Refill [facility] [place] [address] [address] Maren Verdugo APRN [address] [place] [address] Medication Refill Social History Tobacco Use [...] Upcoming Encounters Date Type Department Care Team ([facility] st Contact Info) Description 05/04/2025 10:00 AM EDT Office Visit [facility] [place] [address] [address] Aki Ross MD [address] [place] [address] 05/11/2025 1:40 PM EDT Office Visit [facility] Dermatology [address] [phone] Nico Bailey MD [address] [place] [address] documented as of this encounter Visit Diagnoses Diagnosis Chronic diastolic heart failure (HCC) Chronic diastolic heart failure documented in this encounter Additional Health Concerns Infection Onset Date Last Indicated Resolved Time R/O Gastrointestinal Infection 03/22/2025 03/22/2025 03/23/2025 10:28 PM EDT documented as of this encounter Care Teams Visitor Services Associate Relationship Specialty Start Date End Date Jace Blake MD [address] [place] [address] PCP - General Psychiatry, General 05/04/17 Rachid Robles MD 04/27/17 Andres Lakhani MD [address] [place] [address] Manager Fixed Income Cardiology 07/08/19 Aki Ross MD [address] [address] Primary Manager Fixed Income Cardiovascular Disease 07/08/19 Ursula Boo MD [address] [address] Gastroenterology 06/07/20 Rocio Youssef PA-C [address] [place] [address] Physician Daytime Babysitter Gastroenterology 06/07/20 Emeterio Valencia MD [address] [place] [address] Clinician Pulmonary Medicine 06/20/20 Diana Coppola MD [address] [address] Internal Medicine 03/22/25 documented as of this encounter
--- OUTSIDE RECORDS SUMMARY | 2025-04-03 11:58 | XMS_ITS | Encounter Summary ---
Author Organization [facility] Address [address] [place] [address] Care Team Providers Care Events Intern Name Role Phone Jace Blake MD Primary Care Provider Provider, Rachid GARCIA Unavailable Unavaila Andres Topete MD Unavailable [phone] Aki Ross MD Unavailable [phone] Ursula Boo MD Unavailable Rocio Youssef PA-C Unavailable Emeterio Valencia MD Unavailable Diana Coppola MD Unavailable Encounter Details Date Type Department Care Team (Late st Contact Info) Description 08/30/2020 Telephone [facility] [address] [place] [address] Ursula Boo MD [address] [place] [address] Social History Tobacco Use Types Packs/Day [...] Description 05/04/2025 10:00 AM EDT Office Visit [facility] Heart & [facility] [place] 45 [facility] 102 [place] [phone] Aki Ross MD [address] [place] [address] 102 [place] [address] 05/11/2025 1:40 PM EDT Office Visit [facility] Dermatology [place] 35 [place] [address] Nico Bailey MD [address] [place] [address] documented as of this encounter Visit Diagnoses Not on filedocumented in this encounter Additional Health Concerns Infection Onset Date Last Indicated Resolved Time R/O Gastrointestinal Infection 03/22/2025 03/22/2025 03/23/2025 10:28 PM EDT documented as of this encounter Care Teams Events Intern Relationship Specialty Start Date End Date Jace Blake MD [address]8 [place] [address] PCP - General Psychiatry, General 05/04/17 ProviderRachid MD 04/27/17 Andres Lakhani MD [address] [place] [address] Cigar Making Machine Supervisor Cardiology 07/08/19 Aki Ross MD [address] [address] Primary Cigar Making Machine Supervisor Cardiovascular Disease 07/08/19 Ursula Boo MD [address] [address] Gastroenterology 06/07/20 Rocio Youssef PA-C [address] [address] Physician Java Systems Analyst Gastroenterology 06/07/20 Emeterio Valencia MD [address] [address] Clinician Pulmonary Medicine 06/20/20 Diana Coppola MD [address] [address] Internal Medicine 03/22/25 documented as of this encounter
--- OUTSIDE RECORDS SUMMARY | 2025-04-03 11:58 | XMS_ITS | Encounter Summary ---
Author Organization [facility] Address [address] [place] [address] Care Team Providers Care Tool Maker Apprentice Name Role Phone Jace Blake MD Primary Care Provider Provider, Rachid GARCIA Unavailable Unavaila Andres Topete MD Unavailable [phone] Aki Ross MD Unavailable [phone] Ursula Boo MD Unavailable Rocio Youssef PA-C Unavailable Emeterio Valencia MD Unavailable Diana Coppola MD Unavailable Encounter Details Date Type Department Care Team (Late st Contact Info) Description 11/14/2020 Scanned Document [facility] [address] [place] [address] Ursula Boo MD [address] [place] [phone] Social History Tobacco Use Types Packs/Day [...] Description 05/04/2025 10:00 AM EDT Office Visit [facility] Heart & Vascular [place] [address] [phone] Aki Ross MD [address] [place] [address] 05/11/2025 1:40 PM EDT Office Visit [facility] Dermatology [address] [phone] Nico Bailey MD [address] [place] [address] documented as of this encounter Visit Diagnoses Not on filedocumented in this encounter Additional Health Concerns Infection Onset Date Last Indicated Resolved Time R/O Gastrointestinal Infection 03/22/2025 03/22/2025 03/23/2025 10:28 PM EDT documented as of this encounter Care Teams Tool Maker Apprentice Relationship Specialty Start Date End Date Jace Blake MD [address]8 [place] [address] PCP - General Psychiatry, General 05/04/17 Rachid Robles MD 04/27/17 Andres Lakhani MD [address] [place] [address] Heel Reducer Cardiology 07/08/19 Aki Ross MD [address] [place] [address] Primary Heel Reducer Cardiovascular Disease 07/08/19 Ursula Boo MD 45 [facility] 102 [place] [address] Gastroenterology 06/07/20 Rocio Youssef PA-C [address] [place] [address] Physician Recording Studio Set Up Worker Gastroenterology 06/07/20 Emeterio Valencia MD [address] [place] [address] Clinician Pulmonary Medicine 06/20/20 Diana Coppola MD [address] [place] [address] Internal Medicine 03/22/25 documented as of this encounter
--- OUTSIDE RECORDS SUMMARY | 2025-04-03 11:58 | XMS_ITS | Clinical Summary ---
Author Organization [facility] Address [address] [place] [address] Care Team Providers Care Door Patcher Name Role Phone Jace Blake MD Primary Care Provider [phone] Allergies No known active allergies Medications Medication [...] for now. See discussion under cardiomyopathy. 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 She continues with remote monitoring of her device through [facility]. Is maintained on beta-blockers and [...] Advance Directives For more information, please contact: [phone] Latest Code Status on File Code Status Date Activated Date Inactivated Comments Full Code 03/11/2024 5:12 PM 03/13/2024 1:01 AM This code status was ascertained in the following way: Discussed with patient. Care Teams Door Patcher Relationship Specialty Start Date End Date Jace Blake MD [address] [place] [address] PCP - General Family Medicine 03/11/24
--- OUTSIDE RECORDS SUMMARY | 2025-04-03 11:58 | XMS_ITS | Encounter Summary ---
Author Organization [facility] Address [address] [place] [address] Care Team Providers Care Rake Operator Name Role Phone Jace Blake MD Primary Care Provider Provider, Rachid GARCIA Unavailable Unavaila Andres Topete MD Unavailable [phone] Aki Ross MD Unavailable [phone] Ursula Boo MD Unavailable Rocio Youssef PA-C Unavailable Emeterio Valencia MD Unavailable Diana Coppola MD Unavailable Encounter Details Date Type Department Care Team (Late st Contact Info) Description 04/17/2021 Scanned Document [facility] Heart & Vascular [place] [address] [place] [phone] Provider, External, [address] [place] [address] Social History Tobacco Use Types Packs/Day Years [...] Visit [facility] Heart [facility]ascular [place] [address] [place] [address] Aki Ross MD [address] [place] [address] 102 [place] [address] 05/11/2025 1:40 PM EDT Office Visit [facility] Dermatology [place] [address] [place] [phone] Nico Bailey MD [address] [place] [address] documented as of this encounter Visit Diagnoses Not on filedocumented in this encounter Additional Health Concerns Infection Onset Date Last Indicated Resolved Time R/O Gastrointestinal Infection 03/22/2025 03/22/2025 03/23/2025 10:28 PM EDT documented as of this encounter Care Teams Rake Operator Relationship Specialty Start Date End Date Jace Blake MD [address] [place] [address] PCP - General Psychiatry, General 05/04/17 ProviderRachid MD 04/27/17 Andres Lakhani MD [address] [place] [address] Weighing Station Operator Cardiology 07/08/19 Aki Ross MD [address] [address] Primary Weighing Station Operator Cardiovascular Disease 07/08/19 Ursula Boo MD [address] [address] Gastroenterology 06/07/20 Rocio Youssef PA-C [address] [address] Physician Oil Burner Technician Gastroenterology 06/07/20 Emeterio Valencia MD [address] [address] Clinician Pulmonary Medicine 06/20/20 Diana Coppola MD 800 [facility] 2nd [place] [address] Internal Medicine 03/22/25 documented as of this encounter
--- OUTSIDE RECORDS SUMMARY | 2025-04-03 11:58 | XMS_ITS | Encounter Summary ---
Author Organization [facility] Address [address] [place] [address] Care Team Providers Care Geophysical Prospecting Surveyor Name Role Phone Jace Blake MD Primary Care Provider Provider, Rachid GARCIA Unavailable Unavaila Andres Topete MD Unavailable [phone] Aki Ross MD Unavailable [phone] Ursula Boo MD Unavailable [phone] Rocio Youssef PA-C Unavailable Emeterio Valencia MD Unavailable Diana Coppola MD Unavailable Encounter Details Date Type Department Care Team (Late st Contact Info) Description 03/28/2025 Telephone [facility] [address] [address] Ursula Boo MD [address] [place] [phone] Social History Tobacco Use Types Packs/Day [...] Description 05/04/2025 10:00 AM EDT Office Visit [facility] Heart & Vascular [place] [address] [phone] Aki Ross MD [address] [place] [address] 05/11/2025 1:40 PM EDT Office Visit [facility] Dermatology [address] [phone] Nico Bailey MD [address] [place] [address] documented as of this encounter Visit Diagnoses Not on filedocumented in this encounter Care Teams Geophysical Prospecting Surveyor Relationship Specialty Start Date End Date Jace Blake MD 1158 [place] [address] PCP - General Psychiatry, General 05/04/17 ProviderRachid MD 04/27/17 Andres Lakhani MD [address] [place] [address] Manager Distribution Center Cardiology 07/08/19 Aki Ross MD [address] [address] Primary Manager Distribution Center Cardiovascular Disease 07/08/19 Ursula Boo MD [address] [address] Gastroenterology 06/07/20 Rocio Youssef PA-C 234A [facility] 4 [place] [address] Physician Incident Engineer Gastroenterology 06/07/20 Emeterio Valencia MD [address] [address] Clinician Pulmonary Medicine 06/20/20 Diana Coppola MD [address] [address] Internal Medicine 03/22/25 documented as of this encounter
--- OUTSIDE RECORDS SUMMARY | 2025-04-03 11:58 | XMS_ITS | Encounter Summary ---
Author Organization [facility] Address [address] [place] [address] Care Team Providers Care Manager Progressive Care Name Role Phone Jace Blake MD Primary Care Provider Provider, Rachid GARCIA Unavailable Unavaila Andres Topete MD Unavailable [phone] Aki Ross MD Unavailable [phone] Ursula Boo MD Unavailable [phone] Rocio Youssef PA-C Unavailable [phone] Emeterio Valencia MD Unavailable Diana Coppola MD Unavailable Encounter Details Date Type Department Care Team (Late st Contact Info) Description 04/23/2021 Scanned Document [facility] [address] [place] [address] Ursula Boo MD [address] [place] [phone] Social History Tobacco Use Types Packs/Day [...] 05/04/2025 10:00 AM EDT Office Visit [facility] [place] [address] [place] [address] Aki Ross MD [address] [place] [address] [address] [place], [place] [phone] 05/11/2025 1:40 PM EDT Office Visit [facility] Dermatology [place] [address] [place] [address] Nico Bailey MD [address] [place] [address] documented as of this encounter Visit Diagnoses Not on filedocumented in this encounter Additional Health Concerns Infection Onset Date Last Indicated Resolved Time R/O Gastrointestinal Infection 03/22/2025 03/22/2025 03/23/2025 10:28 PM EDT documented as of this encounter Care Teams Manager Progressive Care Relationship Specialty Start Date End Date Jace Blake MD [facility]8 [place] [address] PCP - General Psychiatry, General 05/04/17 ProviderRachid MD 04/27/17 Andres Lakhani MD [address] [place] [address] Tie In Machine Operator Cardiology 07/08/19 Aki Ross MD [address] [address] Primary Tie In Machine Operator Cardiovascular Disease 07/08/19 Ursula Boo MD [address] [address] Gastroenterology 06/07/20 Rocio Youssef PA-C [address] [address] Physician Senior Game Designer Gastroenterology 06/07/20 Emeterio Valencia MD [address] [address] Clinician Pulmonary Medicine 06/20/20 Diana Coppola MD [address] [address] Internal Medicine 03/22/25 documented as of this encounter
--- OUTSIDE RECORDS SUMMARY | 2025-04-03 11:58 | XMS_ITS | Encounter Summary ---
Author Organization [facility] Address [address] [place] [address] Care Team Providers Care Geometrician Name Role Phone Jace Blake MD Primary Care Provider [phone] Provider, Rachid GARCIA Unavailable Unavaila Andres Topete MD Unavailable [phone] Aki Ross MD Unavailable [phone] Ursula Boo MD Unavailable [phone] Rocio Youssef PA-C Unavailable Emeterio Valencia MD Unavailable Diana Coppola MD Unavailable Encounter Details Date Type Department Care Team (Late st Contact Info) Description 04/30/2023 Scanned Document [facility] [place] [address] [place] [address] Ursula Boo MD [address] [place] [phone] Social History Tobacco Use Types Packs/Day [...] Office Visit [facility] [place] [address] [phone] Aki Ross MD [address] [place] [address] 05/11/2025 1:40 PM EDT Office Visit [facility] Dermatology [address] [phone] Nico Bailey MD [address] [place] [address] documented as of this encounter Visit Diagnoses Not on filedocumented in this encounter Additional Health Concerns Infection Onset Date Last Indicated Resolved Time R/O Gastrointestinal Infection 03/22/2025 03/22/2025 03/23/2025 10:28 PM EDT documented as of this encounter Care Teams Geometrician Relationship Specialty Start Date End Date Jace Blake MD [address] [place] [address] PCP - General Psychiatry, General 05/04/17 Rachid Robles MD 04/27/17 Andres Lakhani MD [address] [place] [address] Cash Grain Grower Cardiology 07/08/19 Aki Ross MD [address] [place] [address] Primary Cash Grain Grower Cardiovascular Disease 07/08/19 Ursula Boo MD [address] [place] [address] Gastroenterology 06/07/20 Rocio Youssef PA-C [address] [place] [address] Physician Ceramic Sprayer Gastroenterology 06/07/20 Emeterio Valencia MD [address] [place] [address] Clinician Pulmonary Medicine 06/20/20 Diana Coppola MD [address] [address] Internal Medicine 03/22/25 documented as of this encounter
--- OUTSIDE RECORDS SUMMARY | 2025-04-03 11:58 | XMS_ITS | Encounter Summary ---
Author Organization [facility] Address [address] [place] [address] Care Team Providers Care Phone Screener Name Role Phone Jace Blake MD Primary Care Provider [phone] Provider, Rachid GARCIA Unavailable Unavaila Andres Topete MD Unavailable Aki Ross MD Unavailable [phone] Ursula Boo MD Unavailable Rocio Youssef PA-C Unavailable Emeterio Valencia MD Unavailable Diana Coppola MD Unavailable Encounter Details Date Type Department Care Team (Late st Contact Info) Description 04/22/2022 Scanned Document [facility] [place] [address] [place] [phone] Provider, Tom, [address] [place] [address] Social History Tobacco Use Types Packs/Day Years [...] Description 05/04/2025 10:00 AM EDT Office Visit [facility] [place] [address] [phone] Aki Ross MD [address] [place] [phone] 05/11/2025 1:40 PM EDT Office Visit [facility] Dermatology [address] [address] Nico Bailey MD [address] [place] [address] documented as of this encounter Visit Diagnoses Not on filedocumented in this encounter Additional Health Concerns Infection Onset Date Last Indicated Resolved Time R/O Gastrointestinal Infection 03/22/2025 03/22/2025 03/23/2025 10:28 PM EDT documented as of this encounter Care Teams Phone Screener Relationship Specialty Start Date End Date Jace Blake MD [address] [place] [address] PCP - General Psychiatry, General 05/04/17 Rachid Robles MD 04/27/17 Andres Lakhani MD [address] [place] [address] Z Os Mainframe Systems Programmer Cardiology 07/08/19 Aki Ross MD [address] [place] [address] Primary Z Os Mainframe Systems Programmer Cardiovascular Disease 07/08/19 Ursula Boo MD [address] [place] [address] Gastroenterology 06/07/20 Rocio Youssef PA-C [address] [place] [address] Physician Flight Radio Officer Gastroenterology 06/07/20 Emeterio Valencia MD [address] [place] [address] Clinician Pulmonary Medicine 06/20/20 Diana Coppola MD [address] [address] Internal Medicine 03/22/25 documented as of this encounter
--- OUTSIDE RECORDS SUMMARY | 2025-04-03 11:58 | XMS_ITS | Encounter Summary ---
Author Organization [facility] Address [address] [place] [address] Care Team Providers Care R Programmer Name Role Phone Jace Blake MD Primary Care Provider Provider, Rachid GARCIA Unavailable Unavaila Andres Topete MD Unavailable [phone] Aki Ross MD Unavailable [phone] Ursula Boo MD Unavailable [phone] Rocio Youssef PA-C Unavailable [phone] Emeterio Valencia MD Unavailable Diana Coppola MD Unavailable Encounter Details Date Type Department Care Team (Late st Contact Info) Description 03/27/2025 Orders Only [facility] Urology [address] [address] Ursula Boo MD [address] [place] [phone] Social History Tobacco Use Types Packs/Day [...] [facility] [place] [facility] [place] [address] [address] Aki Ross MD [address] [place] [address] 102 [place] [address] 05/11/2025 1:40 PM EDT Office Visit [facility] Dermatology [place] 35 [place] [phone] Nico Bailey MD [address] [place] [address] documented as of this encounter Procedures Procedure Name Priority Date/Time Associated Diagnosis Comments LAB RESULT Routine 03/24/2025 8:26 AM EDT documented in this encounter Results * LAB RESULT (03/24/2025 8:26 AM EDT) us Ursula Boo MD HX AMB PROCEDURES Final Resu lt documented in this encounter Visit Diagnoses Not on filedocumented in this encounter Care Teams R Programmer Relationship Specialty Start Date End Date Jace Blake MD [address] [place] [address] PCP - General Psychiatry, General 05/04/17 Rachid Robles MD 04/27/17 Andres Lakhani MD [address] [place] [address] Front Attendant Cardiology 07/08/19 Aki Ross MD [address] [place] [address] Primary Front Attendant Cardiovascular Disease 07/08/19 Ursula Boo MD [address] [place] [address] Gastroenterology 06/07/20 Rocio Youssef PA-C [address] [place] [address] Physician Torch Straightener And Heater Gastroenterology 06/07/20 Emeterio Valencia MD [address] [place] [address] Clinician Pulmonary Medicine 06/20/20 Diana Coppola MD [address] [address] Internal Medicine 03/22/25 documented as of this encounter
--- OUTSIDE RECORDS SUMMARY | 2025-04-03 11:58 | XMS_ITS | Encounter Summary ---
Author Organization [facility] Address [address] [place] [address] Care Team Providers Care Chef De Partie Name Role Phone Jace Blake MD Primary Care Provider Provider, Rachid GARCIA Unavailable Unavaila Andres Topete MD Unavailable [phone] Aki Ross MD Unavailable [phone] Ursula Boo MD Unavailable [phone] Rocio Youssef PA-C Unavailable Emeterio Valencia MD Unavailable Diana Coppola MD Unavailable Encounter Details Date Type Department Care Team (Late st Contact Info) Description 02/13/2021 Scanned Document [facility] Heart & Vascular [place] 100 [facility], [address] [place] [address] Aki Ross MD [address] [place] [address] Social History Tobacco Use Types Packs/Day Years [...] 10:00 AM EDT Office Visit [facility] [place] [address] [phone] Aki Ross MD [address] [place] [address] 05/11/2025 1:40 PM EDT Office Visit [facility] Medical [facility] Dermatology [place] [address] [place] [phone] Nico Bailey MD [address] [place] [address] documented as of this encounter Visit Diagnoses Not on filedocumented in this encounter Additional Health Concerns Infection Onset Date Last Indicated Resolved Time R/O Gastrointestinal Infection 03/22/2025 03/22/2025 03/23/2025 10:28 PM EDT documented as of this encounter Care Teams Chef De Partie Relationship Specialty Start Date End Date Jace Blake MD [address] [place] [address] PCP - General Psychiatry, General 05/04/17 Provider, MD Rachid 04/27/17 Andres Lakhani MD [address] [place] [address] Computer Tape Librarian Cardiology 07/08/19 Aki Ross MD [address] [place] [address] Primary Computer Tape Librarian Cardiovascular Disease 07/08/19 Ursula Boo MD [address] [address] Gastroenterology 06/07/20 Rocio Youssef PA-C [address] [place] [address] Physician Beverage Host Gastroenterology 06/07/20 Emeterio Valencia MD [address] [place] [address] Clinician Pulmonary Medicine 06/20/20 Diana Coppola MD [address] [place] [address] Internal Medicine 03/22/25 documented as of this encounter
--- OUTSIDE RECORDS SUMMARY | 2025-04-03 11:58 | XMS_ITS | Encounter Summary ---
Author Organization [facility] Address [address] [place] [address] Care Team Providers Care Rheumatology Specialist Name Role Phone Jace Blake MD Primary Care Provider Provider, Rachid GARCIA Unavailable Unavaila Andres oTpete MD Unavailable [phone] Aki Ross MD Unavailable [phone] Ursula Boo MD Unavailable Rocio Youssef PA-C Unavailable Emeterio Valencia MD Unavailable Diana Coppola MD Unavailable Encounter Details Date Type Department Care Team (Late st Contact Info) Description 06/05/2023 Scanned Document [facility] Heart & Vascular [place] [address] [address] Aki Ross MD [address] [place] [address] Social History Tobacco Use Types Packs/Day [...] 10:00 AM EDT Office Visit [facility] Heart [facility] Vascular [place] [address] [phone] Aki Ross MD [address] [place] [address] 05/11/2025 1:40 PM EDT Office Visit [facility] Medical [facility] Dermatology [address] [address] Nico Bailey MD [address] [place] [address] documented as of this encounter Visit Diagnoses Not on filedocumented in this encounter Additional Health Concerns Infection Onset Date Last Indicated Resolved Time R/O Gastrointestinal Infection 03/22/2025 03/22/2025 03/23/2025 10:28 PM EDT documented as of this encounter Care Teams Rheumatology Specialist Relationship Specialty Start Date End Date Jace Blake MD [address] [place] [address] PCP - General Psychiatry, General 05/04/17 Rachid Robles MD 04/27/17 Andres Lakhani MD [address] [place] [address] Value Analyst Cardiology 07/08/19 Aki Ross MD [address] [place] [address] Primary Value Analyst Cardiovascular Disease 07/08/19 Ursula Boo MD [address] [place] [address] Gastroenterology 06/07/20 Rocio Youssef PA-C [address] [place] [address] Physician Window Glass Installer Gastroenterology 06/07/20 Emeterio Valencia MD [address] [place] [address] Clinician Pulmonary Medicine 06/20/20 Diana Coppola MD [address] [place] [address] Internal Medicine 03/22/25 documented as of this encounter
--- OUTSIDE RECORDS SUMMARY | 2025-04-03 11:58 | XMS_ITS | Encounter Summary ---
Author Organization [facility] Address [address] [place] [address] Care Team Providers Care Mixer Runner Name Role Phone Blake, Gary Primary Care Provider [phone] Encounter Details Date Type Department Care Team (Late st Contact Info) Description 06/23/2014 Scanned Document Gastrointestinal Surgery at [address] [place] [address] [place] [address] Chino Cordova MD PhD [address] [place] [phone] Social History Tobacco Use Types Packs/Day Years [...] AM EDT Follow Up Neuromuscular Medicine at [address] [place] [address] [place] [address] Silvestre Maldonado MD [address] [place] [phone] 07/19/2025 12:20 PM EDT Follow Up Congestive Heart Failure Program at 800 [facility] [address] [place] [address] Diana Coppola MD 800 [place] [phone] 10/05/2025 12:30 PM EST Appointment PUL[facility] - [address] [address] Aparna Chang MD [address] [place] [phone] [facility], Pft Walk 10/05/2025 1:00 PM EST Appointment [facility] - [address] [address] Aparna Chang MD [address] [place] [phone] 1, Pft Procedure Room 10/05/2025 2:00 PM EST Office Visit [facility] [address] [phone] Aparna Chang MD [address] [place] [phone] documented as of this encounter Visit Diagnoses Not on filedocumented in this encounter Care Teams Mixer Runner Relationship Specialty Start Date End Date Jace Blake DO [address] [place] [address] PCP - General Family Medicine 08/01/14 documented as of this encounter
--- OUTSIDE RECORDS SUMMARY | 2025-04-03 11:59 | XMS_ITS | Encounter Summary ---
Author Organization [facility] Address [address] [place] [address] Care Team Providers Care Supervisor Engraving Name Role Phone Hayden Jace Primary Care Provider [phone] Encounter Details Date Type Department Care Team (Late st Contact Info) Description 12/24/2020 Scanned Document [facility] at [address] [place] [phone] Chela Ramírez MD [address] [address] Social History Tobacco Use Types [...] EDT Follow Up Neuromuscular Medicine at [address] [address] Silvestre Maldonado MD [address] [place] [phone] 07/19/2025 12:20 PM EDT Follow Up Congestive Heart Failure Program at 800 [facility] [address] [address] Diana Coppola MD 800 [place] [phone] 10/05/2025 12:30 PM EST Appointment PULMONARY [facility]CTION LABORATORY - [address] [address] Aparna Chang MD [address] [place] [phone] [facility] 10/05/2025 1:00 PM EST Appointment PUL[facility] LAB[facility] - [address] [address] Aparna Chang MD [address] [place] [phone] 1, Pft Procedure Room 10/05/2025 2:00 PM EST Office Visit [facility] [address] [phone] Aparna Chang MD [address] [place] [phone] documented as of this encounter Visit Diagnoses Not on filedocumented in this encounter Additional Health Concerns Assessment Noted Time PHQ-9 Depression Total Score: 0 10/03/20 20 12:10 PM EST documented as of this encounter Care Teams Supervisor Engraving Relationship Specialty Start Date End Date Jace Blake DO [address] [place] [address] PCP - General Family Medicine 08/01/14 documented as of this encounter
--- OUTSIDE RECORDS SUMMARY | 2025-04-03 11:59 | XMS_ITS | Encounter Summary ---
Author Organization [facility] Address [address] [place] [address] Care Team Providers Care Keg Varnisher Name Role Phone Jace Blake DO Primary Care Provider [phone] Encounter Details Date Type Department Care Team (Late st Contact Info) Description 06/15/2023 Abstract Congestive Heart Failure Program at [address] 2nd [place], [place] [address] Diana Coppola MD [address] [place] [phone] Social History Tobacco Use Types Packs/Day [...] AM EDT Follow Up Neuromuscular Medicine at [address] [place] [address] 800 [facility] [place] [address] Silvestre Maldonado MD [address] [place] [phone] 07/19/2025 12:20 PM EDT Follow Up Congestive Heart Failure Program at [address] [place] [address] 800 [facility] 2nd [place] [address] Diana Coppola MD [address] [place] [address], [place] [phone] 10/05/2025 12:30 PM EST Appointment PULMON[facility]CTION LABORATORY - [address] [address] Aparna Chang MD [address] [place] [phone] [facility], Pft Walk 10/05/2025 1:00 PM EST Appointment PULMONARY [facility]CTION LABORATORY - [address] [address] Aparna Chang MD [address] [place] [phone] 1, Pft Procedure Room 10/05/2025 2:00 PM EST Office Visit [facility] [address] [phone] Aparna Chang MD [address] [place] [phone] documented as of this encounter Visit Diagnoses Not on filedocumented in this encounter Additional Health Concerns Assessment Noted Time PHQ-9 Depression Total Score: 0 07/10/20 10:52 AM EDT documented as of this encounter Care Teams Keg Varnisher Relationship Specialty Start Date End Date Jace Blake DO [address] [place] [address] PCP - General Family Medicine 08/01/14 documented as of this encounter
--- OUTSIDE RECORDS SUMMARY | 2025-04-03 11:59 | XMS_ITS | Encounter Summary ---
Author Organization [facility] Address [address] [place] [address] Care Team Providers Care Business Banking Relationship Manager Name Role Phone Miguel Angel Blakey Primary Care Provider [phone] Encounter Details Date Type Department Care Team (Late st Contact Info) Description 03/27/2021 Orders Only Neurology [address] [place] [address] Ambrosio Wallace MD PhD [address] [place] [phone] Idiopathic peripheral neuropathy (Primary Dx) Social [...] EDT Follow Up Neuromuscular Medicine at [address] [address] Silvestre Maldonado MD [facility] [place] [phone] 07/19/2025 12:20 PM EDT Follow Up [facility] Congestive Heart Failure Program at 800 [facility] [address] [address] Diana Coppola MD 800 [place] [phone] 10/05/2025 12:30 PM EST Appointment PULMONARY FUNCTION LABORATORY - [address] [address] Aparna Chang MD [address] [place] [phone] [facility], Pft Walk 10/05/2025 1:00 PM EST Appointment PULMONARY [facility]CTION LABORATORY - [address] [address] Aparna Chang MD [address] [place] [phone] 1, Pft Procedure Room 10/05/2025 2:00 PM EST Office Visit [facility] [address] [phone] Aparna Chang MD [address] [place] [phone] documented as of this encounter Visit Diagnoses Diagnosis Idiopathic peripheral neuropathy- Primary Unspecified hereditary and idiopathic peripheral neuropathy documented in this encounter Additional Health Concerns Assessment Noted Time PHQ-9 Depression Total Score: 0 10/03/20 20 12:10 PM EST documented as of this encounter Care Teams Business Banking Relationship Manager Relationship Specialty Start Date End Date Jace Blake DO [address] [place] [address] PCP - General Family Medicine 08/01/14 documented as of this encounter
--- OUTSIDE RECORDS SUMMARY | 2025-04-03 11:59 | XMS_ITS | Encounter Summary ---
Author Organization [facility] Address [address] [place] [address] Care Team Providers Care Youth Specialist Name Role Phone Blake, Gary Primary Care Provider [phone] Encounter Details Date Type Department Care Team (Late st Contact Info) Description 08/23/2020 Abstract [facility] 789 [facility], 2nd floor [facility], [address] [place], [place] [address] Aparna Chang MD [address] [place] [phone] Social History Tobacco Use Types Packs/Day [...] at 800 [facility] 800 [place] [address] Silvestre Maldonado MD 800 [place] [phone] 07/19/2025 12:20 PM EDT Follow Up Congestive Heart Failure Program at 800 [facility] [address] [place] [address] Diana Coppola MD 800 [place] [phone] 10/05/2025 12:30 PM EST Appointment PULMONARY FUNCTION LABORATORY - [address] [address] Aparna Chang MD [address] [place] [phone] Hallway, Pft Walk 10/05/2025 1:00 PM EST Appointment PULMON[facility]CTION LABORATORY - [address] [place] [address] Aparna Chang MD [address] [place] [phone] 1, Pft Procedure Room 10/05/2025 2:00 PM EST Office Visit [facility] [address] [address] Aparna Chang MD [address] [place] [phone] documented as of this encounter Visit Diagnoses Not on filedocumented in this encounter Care Teams Youth Specialist Relationship Specialty Start Date End Date Jace Blake DO [address] [place] [address] PCP - General Family Medicine 08/01/14 documented as of this encounter
--- OUTSIDE RECORDS SUMMARY | 2025-04-03 11:59 | XMS_ITS | Encounter Summary ---
Author Organization [facility] Address [address] [place] [phone] Care Team Providers Care Flour Blender Name Role Phone Hayden Jace Primary Care Provider Encounter Details Date Type Department Care Team (Late st Contact Info) Description 04/03/2021 Transcribed Orders [facility] Specimens [address] [place], [place] [address] Yessica Ortega MD [address] [place] [phone] Social History Tobacco Use Types Packs/Day [...] Follow Up Neuromuscular Medicine at [address] [address] Silvestre Maldonado MD 800 [place] [address] 07/19/2025 12:20 PM EDT Follow Up [facility] Congest[facility] Heart Failure [facility] at 800 [facility] [address] [address] Diana Coppola MD 800 [place] [address] 10/05/2025 12:30 PM EST Appointment [facility] - [address] [phone] Aparna Chang MD [address] [place] [phone] Hallway, Pft Walk 10/05/2025 1:00 PM EST Appointment [facility] - [address] [address] Aparna Chang MD [address] [place] [phone] 1, Pft Procedure Room 10/05/2025 2:00 PM EST Office Visit [facility] [address] [address] Aparna Chang MD [address] [place] [phone] documented as of this encounter Visit Diagnoses Not on filedocumented in this encounter Additional Health Concerns Assessment Noted Time PHQ-9 Depression Total Score: 0 10/03/20 20 12:10 PM EST documented as of this encounter Care Teams Flour Blender Relationship Specialty Start Date End Date Jace Blake DO [address] [place] [phone] PCP - General Family Medicine 08/01/14 documented as of this encounter
--- OUTSIDE RECORDS SUMMARY | 2025-04-03 11:59 | XMS_ITS | Encounter Summary ---
Author Organization [facility] and [facility] Address [address] [place] [address] Care Team Providers Care Slag Dumper Name Role Phone BlakeJace Primary Care Provider [phone] Encounter Details Date Type Department Care Team (Late st Contact Info) Description 03/28/2021 Scanned Document INTERFACE DEFAULT [address] [place] [address] System, Provider Not In Social History Tobacco [...] Follow Up [facility] Neurom[facility] Medicine at [address] [address] Silvestre Maldonado MD [address] [place] [phone] 07/19/2025 12:20 PM EDT Follow Up Congestive Heart Failure Program at 800 [facility] [address] [place] [address] Diana Coppola MD 800 [place] [phone] 10/05/2025 12:30 PM EST Appointment [facility] - [address] [address] Aparna Chang MD [address] [place] [phone] [facility] 10/05/2025 1:00 PM EST Appointment [facility] - [address] [address] Aparna Chang MD [address] [place] [phone] 1, Pft Procedure Room 10/05/2025 2:00 PM EST Office Visit [facility] [address] [phone] Aparna Chang MD [address] [place] [phone] documented as of this encounter Visit Diagnoses Not on filedocumented in this encounter Additional Health Concerns Assessment Noted Time PHQ-9 Depression Total Score: 0 10/03/20 20 12:10 PM EST documented as of this encounter Care Teams Slag Dumper Relationship Specialty Start Date End Date Jace Blake DO [address] [place] [address] PCP - General Family Medicine 08/01/14 documented as of this encounter
--- OUTSIDE RECORDS SUMMARY | 2025-04-03 11:59 | XMS_ITS | Encounter Summary ---
Author Organization [facility] and [facility] Address [address] [place] [phone] Care Team Providers Care Laundry Equipment Operator Name Role Phone Hayden Jace HATFIELD Primary Care Provider [phone] Encounter Details Date Type Department Care Team (Latest Contact Info) Description 04/30/2022 Transcribed Orders [facility] [address] [place] [address] Tl Mancera APRN [address] [phone] Iron deficiency anemia secondary to [...] Follow Up Neuromuscular Medicine at [address] [facility] 800 [place] [address] Silvestre Maldnoado MD 800 [place] [phone] 07/19/2025 12:20 PM EDT Follow Up [facility] at [address] [place] [address] [address] [facility] 2nd [place] [address] Diana Coppola MD 800 [place] [phone] 10/05/2025 12:30 PM EST Appointment [facility] - [address] [address] Aparna Chang MD [address] [place] [phone] Hallway, Pft Walk 10/05/2025 1:00 PM EST Appointment [facility] - [address] [address] Aparna Chang MD [address] [place] [phone] 1, Pft Procedure Room 10/05/2025 2:00 PM EST Office Visit [facility] [address] [phone] Aparna Chang MD [address] [place] [phone] documented as of this encounter Visit Diagnoses Diagnosis Iron deficiency anemia secondary to inadequate dietary iron intake- Primary documented in this encounter Additional Health Concerns Assessment Noted Time PHQ-9 Depression Total Score: 0 07/10/20 21 10:52 AM EDT documented as of this encounter Care Teams Laundry Equipment Operator Relationship Specialty Start Date End Date Jace Blake DO [address] [place] [address] PCP - General Family Medicine 08/01/14 documented as of this encounter
--- OUTSIDE RECORDS SUMMARY | 2025-04-03 11:59 | XMS_ITS | Encounter Summary ---
Author Organization [facility] and [facility] Address [address] [place] [address] Care Team Providers Care Vocational Auto Body Instructor Name Role Phone Blake, Gary Primary Care Provider [phone] Encounter Details Date Type Department Care Team (Latest Contact Info) Description 08/27/2020 Transcribed Orders [facility] 800 [place] [address] Meghana Hunter MD [address] [place] [phone] Acquired polyneuropathy (HC Code) (Primary Dx); [...] EDT Follow Up Neuromuscular Medicine at [address] [place] [address] 800 [facility] [place] [address] Silvestre Maldonado MD [address] [place] [address], [place] [phone] 07/19/2025 12:20 PM EDT Follow Up Congestive Heart Failure Program at [address] [place] [address] 800 [facility] 2nd [place] [address] Diana Coppola MD [address] [place] [address], [place] [phone] 10/05/2025 12:30 PM EST Appointment [facility] - [address] [address] Aparna Chang MD [address] [place] [phone] Hallway, Pft Walk 10/05/2025 1:00 PM EST Appointment [facility] - [address] [address] Aparna Chang MD [address] [place] [phone] 1, Pft Procedure Room 10/05/2025 2:00 PM EST Office Visit [facility] [address] [phone] Aparna Chang MD [address] [place] [phone] documented as of this encounter Results [...] ??X Test developed and characteristics determined by [facility]. See Compliance Statement D: [facility]/ Helga-1 (Histidyl-tRNA Synthetase) Ab, IgG 0 0 - 40 AU/mL 09/13/2020 2:32 PM EDT [facility] Comment: INTERPRETIVE INFORMATION: ??Helga-1 Antibody, IgG ??29 AU/mL or less.........Negative ??30-40 AU/mL..............Equivocal ??41 AU/mL or greater......Positive Presence of Helga-1 (antihistidyl transfer RNA [t-RNA] synthetase) antibody is associated with polymyositis and may also be seen in patients with dermatomyositis. Helga-1 antibody is associated with pulmonary involvement (interstitial lung disease), Raynaud phenomenon, arthritis, and coin machine mechanic's hands (implicated in antisynthetase syndrome). PL-12 (alanyl-tRNA synthetase) Antibody Negative Negative 09/13/2020 2:32 PM EDT [facility] PL-7 (threonyl-tRNA synthetase) Antibody Negative Negative 09/13/2020 2:32 PM EDT [facility] OJ (isoleucyl-tRNA synthetase) Antibody Negative Negative 09/13/2020 2:32 PM EDT [facility] EJ (glycyl-tRNA synthetase) Antibody Negative Negative 09/13/2020 2:32 PM EDT [facility] SRP (Signal Recognition Particle) Ab Negative Negative 09/13/2020 2:32 PM EDT [facility] Mi-2 (nuclear helicase protein) Antibody Negative Negative 09/13/2020 2:32 PM EDT [facility] P155/140 Antibody Negative Negative 020 2:32 PM EDT [facility] Comment: Performed by [facility], [address] [place] [id number] [email or web address], Laura Coleman MD, Lab. Director Blood Venipuncture [...] pneumonopathy documented in this encounter Care Teams Vocational Auto Body Instructor Relationship Specialty Start Date End Date Jace Blake DO [address] [place] [address] PCP - General Family Medicine 08/01/14 documented as of this encounter
--- OUTSIDE RECORDS SUMMARY | 2025-04-03 11:59 | XMS_ITS | Encounter Summary ---
Author Organization [facility] and [facility] Address [address] [place] [address] Care Team Providers Care Processing Assistant Name Role Phone Jace Blake DO Primary Care Provider [phone] Encounter Details Date Type Department Care Team (Late st Contact Info) Description 04/05/2021 Orders Only PUL[facility] [place] [address] Ines Roman, WALDEMAR [address] [place] [phone] Pre-op testing Social History Tobacco Use [...] Follow Up Neuromuscular Medicine at [address] [address] Silvestre Maldonado MD 800 Michael [facility] [phone] 07/19/2025 12:20 PM EDT Follow Up Congestive Heart Failure Program at 800 [facility] 800 [facility] 2nd [place] [address] Diana Coppola MD 800 [place] [phone] 10/05/2025 12:30 PM EST Appointment [facility] - [address] [address] Aparna Chang MD [address] [place] [phone] [facility] Pft [facility] 10/05/2025 1:00 PM EST Appointment [facility] - [address] [address] Aparna Chang MD [address] [place] [phone] 1, Pft Procedure Room 10/05/2025 2:00 PM EST Office Visit [facility] [address] [phone] Aparna Chang MD [address] [place] [phone] documented as of this encounter Results * SARS CoV-2 (COVID-19) PCR - [facility] (Patient Scheduled for Surgery/Procedure) (04/15/2021 8:29 AM EDT) SARS-CoV-2 RNA (COVID-19) Negative Negative 04/15/2021 2:20 PM EDT [facility] Comment: A negative result does not preclude SARS-CoV-2 infections and should not be used as the sole basis for treatment or other management decisions. ?? This assay is a Nucleic Acid Amplification Test (NAAT)/RT-PCR or TMA ([employer]her System). This is run on the [employer] system. It has been validated for clinical use by the [facility] (CLIA #: [id number]). It has been granted Emergency Use Authorization by the [place] FDA. Note that falsely negative results can be due to poor sample quality, suboptimal sample type, low viral load, and viral genome variability. This test has not been evaluated for use in asymptomatic individuals. Test ordering and interpretation is at the discretion of the ordering provider. Patient Information: https://www.fda.gov/media/379269/download ?? Provider Information: https://www.fda.gov/media/317104/download Test performance has not been evaluated in asymptomatic patients. Test ordering and result interpretation is at the discretion of the ordering provider. Viral NASOPHARYNGEAL STRUCTURE / Unknown Collection / Unknown 04/15/2021 8:29 AM EDT 04/15/2021 10:23 AM EDT Ines Roman APRN MICROBIOLOGY - GENERAL ORDERABLES Final Result Performing Organization Address City/State/[facility] Co de Phone Number [address] [phone] documented in this encounter Visit Diagnoses Diagnosis Pre-op testing Preoperative examination, unspecified documented in this encounter Additional Health Concerns Assessment Noted Time PHQ-9 Depression Total Score: 0 10/03/20 20 12:10 PM EST documented as of this encounter Care Teams Processing Assistant Relationship Specialty Start Date End Date Jace Blake DO [address] [place] [phone] PCP - General Family Medicine 08/01/14 documented as of this encounter
--- OUTSIDE RECORDS SUMMARY | 2025-04-03 11:59 | XMS_ITS | Encounter Summary ---
Author Organization [facility] and [facility] Address [address] [place] [phone] Care Team Providers Care It Security Administrator Name Role Phone HaydenJace Primary Care Provider [phone] Encounter Details Date Type Department Care Team (Latest Contact Info) Description 09/17/2020 Evaluation Electrophysiology & Cardiac Arrhythmia Program [address] [place] [address] 2nd Floor [place], [place] [phone] Jessica Chirinos RN Pacemaker (Primary Dx) Social [...] EDT Follow Up Neuromuscular Medicine at 800 [facility] 800 [facility] [place], [place] [address] Silvestre Maldonado MD 800 [facility] [place] [address] 07/19/2025 12:20 PM EDT Follow Up Congestive Heart Failure Program at 800 [facility] [address] [place] [address] Diana Coppola MD 800 [place] [address] 10/05/2025 12:30 PM EST Appointment [facility] - [address] [address] Aparna Chang MD [address] [place] [phone] Hallway, Pft Walk 10/05/2025 1:00 PM EST Appointment [facility] - [address] [address] Aparna Chang MD [address] [place] [phone] 1, Pft Procedure Room 10/05/2025 2:00 PM EST Office Visit [facility] [address] [address] Aparna Chang MD [address] [place] [phone] documented as of this encounter Visit Diagnoses Diagnosis Pacemaker- Primary Cardiac pacemaker in situ documented in this encounter Care Teams It Security Administrator Relationship Specialty Start Date End Date Jace Blake DO [address] [place] [address] PCP - General Family Medicine 08/01/14 documented as of this encounter
--- OUTSIDE RECORDS SUMMARY | 2025-04-03 11:59 | XMS_ITS | Encounter Summary ---
Author Organization [facility] Address [address] [place] [address] Care Team Providers Care Transcribing Machine Operator Name Role Phone Jace Blake MD Primary Care Provider [phone] Provider, Rachid GARCIA Unavailable Unavaila Andres Topete MD Unavailable [phone] Aki Ross MD Unavailable [phone] Ursula Boo MD Unavailable Rocio Youssef PA-C Unavailable Emeterio Valencia MD Unavailable Diana Coppola MD Unavailable Encounter Details Date Type Department Care Team (Late st Contact Info) Description 04/15/2023 Scanned Document [facility] [place] [address] [place] [phone] Provider, Tom, [address] [place] [address] Social History Tobacco Use Types Packs/Day Years [...] [facility] [place] [address] [phone] Aki Ross MD [address] [place] [address] 05/11/2025 1:40 PM EDT Office Visit [facility] [place] [address] [place] [phone] Nico Bailey MD [address] [place] [address] documented as of this encounter Visit Diagnoses Not on filedocumented in this encounter Additional Health Concerns Infection Onset Date Last Indicated Resolved Time R/O Gastrointestinal Infection 03/22/2025 03/22/2025 03/23/2025 10:28 PM EDT documented as of this encounter Care Teams Transcribing Machine Operator Relationship Specialty Start Date End Date Jace Blake MD [address] [place] [address] PCP - General Psychiatry, General 05/04/17 Provider, MD Rachid 04/27/17 Andres Lakhani MD [address] [place] [address] Leather Production Worker Cardiology 07/08/19 Aki Ross MD [address] [place] [address] Primary Leather Production Worker Cardiovascular Disease 07/08/19 Ursula Boo MD [address] [address] Gastroenterology 06/07/20 Rocio Youssef PA-C [address] [place] [address] Physician Range Technician Gastroenterology 06/07/20 Emeterio Valencia MD [address] [place] [address] Clinician Pulmonary Medicine 06/20/20 Diana Coppola MD [address] [place] [address] Internal Medicine 03/22/25 documented as of this encounter
--- OUTSIDE RECORDS SUMMARY | 2025-04-03 11:59 | XMS_ITS | Encounter Summary ---
Author Organization [facility] and [facility] Address [address] [place] [address] Care Team Providers Care Sand Cutter Name Role Phone HaydenJace Primary Care Provider [phone] Encounter Details Date Type Department Care Team (Late st Contact Info) Description 04/27/2023 [facility], 4th Floor [address] [phone] Gerardo Vigil MD [address] [place] [address] [phone] Social History Tobacco Use Types Packs/Day Years [...] Follow Up Neuromuscular Medicine at [address] [address] Silvestre Maldonado MD [address] [place] [phone] 07/19/2025 12:20 PM EDT Follow Up Congestive Heart Failure Program at [address] [facility] [address] [address] Diana Coppola MD 800 [place] [address] 10/05/2025 12:30 PM EST Appointment [facility] - [address] [address] Aparna Chang MD [address] [place] [phone] Hallway, Pft Walk 10/05/2025 1:00 PM EST Appointment [facility] - [address] [address] Aparna Chang MD [address] [place] [phone] 1, Pft Procedure Room 10/05/2025 2:00 PM EST Office Visit [facility] [address] [phone] Aparna Chang MD [address] [place] [phone] documented as of this encounter Visit Diagnoses Not on filedocumented in this encounter Additional Health Concerns Assessment Noted Time PHQ-9 Depression Total Score: 0 07/10/20 21 10:52 AM EDT documented as of this encounter Care Teams Sand Cutter Relationship Specialty Start Date End Date Jace Blake DO [address] [place] [address] PCP - General Family Medicine 08/01/14 documented as of this encounter
--- OUTSIDE RECORDS SUMMARY | 2025-04-03 11:59 | XMS_ITS | Encounter Summary ---
Author Organization [facility] and [facility] Address [address] [place] [address] Care Team Providers Care Bench Scientist Name Role Phone Blake, Gary Primary Care Provider [phone] Encounter Details Date Type Department Care Team (Latest Contact Info) Description 07/19/2021 Transcribed Orders [facility] D[facility] STATION [facility] [address] [place] [address] Kiya Macias, WALDEMAR 5 [facility] [address] [place] [address] Fatty metamorphosis of liver (Primary [...] EDT Follow Up Neuromuscular Medicine at 800 [facility] 800 [facility] [place] [address] Silvestre Maldonado MD 800 [facility] [place] [address] 07/19/2025 12:20 PM EDT Follow Up Congestive Heart Failure Program at 800 [facility] 800 [facility] 2nd [place] [address] Diana Coppola MD 800 [facility] [place] [address] 10/05/2025 12:30 PM EST Appointment PUL[facility] FUNCTION LABORATORY - [address] [address] Aparna Chang MD [address] [place] [phone] Hallway, Pft Walk 10/05/2025 1:00 PM EST Appointment PULMONARY FUNCTION LABORATORY - [address] [address] Aparna Chang MD [address] [place] [phone] 1, Pft Procedure Room 10/05/2025 2:00 PM EST Office Visit [facility] [address] [phone] Aparna Chang MD [address] [place] [phone] documented as of this encounter Results * Uaqvg-0-syrtimrghde phenotype (07/19/2021 4:05 PM EDT) Bioez-4-Vtmjlczlu in Phenotype SEE BELOW 08/01/2021 5:14 PM EDT [facility] Comment: THIS PATIENT'S TCMRG-9-FPIXOIORJHY 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 90% of normal individuals have the MM phenotype, with normal quantitative AAT levels. Many phenotypic patterns have been described, including deficiency states with F, S, Z, or other alleles. As a general estimation, compared to M allele of 100% of normal M-3-Tygvgbiypik protein, the S allele produces approximately 60% and the Z allele 20%. For example, an MS phenotype would have about 80% of normal N-6-Mzexiotrnqf protein level, a 50% contribution from the M allele and 30% from the S allele. A ZZ phenotype would have about 20% of normal levels, a 10% contribution from each Z gene. The F allele has normal Z-6-Wsfuhvcahkh levels, but the kinetics of elastase inhibition [...] the deficient MZ phenotype. Test performed by [employer] ?[id number] [facility], ?[place] [address] ? Urologic Nurse: Milana Baptiste MD,PHD,DECLAN Test Reported by [facility], [employer] [facility], [address] [place], [place] Teodoro Shore M.D., Ph.D., Director of Laboratories , [place] [id number] Blood Venipuncture / Unknown 07/19/2021 4:05 PM EDT 07/19/2021 4:05 PM EDT us Kiya Macias CAREER AND TECHNOLOGY EDUCATION TEACHER LAB BLOOD ORDER LUCA Final Result [facility] * Tissue transglutaminase, IgA (07/19/2021 4:05 PM EDT) Pathologist [facility] tTG, IgA 1.1 <7.0 Catarina U/mL 07/22/2021 1:14 PM EDT [facility] Comment: <7 ?? Catarina U/mL Negative 7-10 Catarina U/mL Equivocal >10 ??Catarina U/mL Positive Blood Venipuncture / Unknown 07/19/2021 4:05 PM EDT 07/19/2021 4:05 PM EDT us Kiya Macias CAREER AND TECHNOLOGY EDUCATION TEACHER LAB BLOOD ORDER LUCA Final Result Performing Organization Address City/[facility] Co de Phone Number [facility] [address] [place] [address] * Immunoglobulin M (07/19/2021 4:05 PM EDT) [facility] Immunoglobulin M 184 40 - 230 mg/dL 07/19/2021 5:33 PM EDT [facility] Blood Venipuncture / Unknown 07/19/2021 4:05 PM EDT 07/19/2021 4:05 PM EDT us Kiya Macias CAREER AND TECHNOLOGY EDUCATION TEACHER LAB BLOOD ORDER [place] [address], [facility] [phone] * Immunoglobulin G (07/19/2021 4:05 PM EDT) Pathologist [facility] Immunoglobulin G 1,240 700 - 1,600 mg/dL 07/19/2021 5:33 PM EDT [facility] Blood Venipuncture / Unknown 07/19/2021 4:05 PM EDT 07/19/2021 4:05 PM EDT Kiya FerrarirobertoMiguel ÁngelBlunt CAREER AND TECHNOLOGY EDUCATION TEACHER LAB BLOOD ORDER LUCA Final Result Performing Organization Address [facility] Co de Phone Number [address] [phone] * Immunoglobulin A (07/19/2021 4:05 PM EDT) Immunoglobulin A 353 70 - 400 mg/dL 07/19/2021 5:33 PM EDT [facility] Blood Venipuncture / Unknown 07/19/2021 4:05 PM EDT 07/19/2021 4:05 PM EDT Kiya FerrarirobertoMiguel ÁngelBlunt CAREER AND TECHNOLOGY EDUCATION TEACHER LAB BLOOD ORDER LUCA Final Result Performing Organization Address [facility] [place] [address], [facility] [phone] * (ABNORMAL) Gamma GT (07/19/2021 4:05 PM EDT) GGT 123(H) 5 - 85 U/L 07/19/2021 5:33 PM EDT [facility] Blood Venipuncture / Unknown 07/19/2021 4:05 PM EDT 07/19/2021 4:05 PM EDT us Kiya FerrarirobertoKody CAREER AND TECHNOLOGY EDUCATION TEACHER LAB BLOOD ORDER LUCA Final Result Performing Organization Address [facility] [place] [address], [facility] [phone] * Yxbyi-4-dhesisijgwf (BH GH L LMW YH) (07/19/2021 4:05 PM EDT) Zspbn-8-Mrbeprqgw in 183 83 - 199 mg/dL 07/24/2021 12:45 PM EDT [facility] Comment: Test Performed at: [employer] [place] [address] ?? Teodoro Shore M.D., Ph.D.,Director of Laboratories Blood Venipuncture / Unknown 07/19/2021 4:05 PM EDT 07/19/2021 4:05 PM EDT us Kiyalyndsay Macias CAREER AND TECHNOLOGY EDUCATION TEACHER LAB BLOOD ORDER LUCA Final Result [facility] * Ceruloplasmin (07/19/2021 4:05 PM EDT) Ceruloplasmin 33 18 - 51 mg/dL 07/20/2021 2:53 PM EDT [facility] DEPARTMENT OF LABORATORY MEDICINE Blood Venipuncture / Unknown 07/19/2021 4:05 PM EDT 07/19/2021 4:05 PM EDT us Kiya Valeratrinidad Macias CAREER AND TECHNOLOGY EDUCATION TEACHER LAB BLOOD ORDER LUCA Final Result Performing Organization Address City/[facility] Co de Phone Number [facility] DEPARTMENT OF LABORATORY MEDICINE [address] [place] [address] * Anti-smooth muscle antibody, IgG (L LMW Q) (07/19/2021 4:05 PM EDT) Actin (Smooth Muscle) Antibody, IgG <20 <20 U 07/24/2021 12:07 AM EDT [facility] Comment: Reference Range: ?? <20 U: Negative [...] with AIH type 1. Test Performed at: [employer] [address] ?? Teodoro Shore M.D., Ph.D.,Director of Laboratories Blood Venipuncture / Unknown 07/19/2021 4:05 PM EDT 07/19/2021 4:05 PM EDT Kiya Valerazabeth Colleen [facility] LAB BLOOD ORDER LUCA Final Result Performing Organization Address [facility] de Phone Number [facility] * Protime and INR (07/19/2021 4:05 PM EDT) Pathologist [facility] Prothrombin Time 11.0 9.9 - 11.8 seconds 07/19/2021 5:22 PM EDT [facility] INR 1.1 0.9 - 1.1 07/19/2021 5:22 PM EDT [facility] Comment: RECOMMENDED INR THERAPEUTIC RANGES: ?STANDARD INTENSITY......2.0-3.0 ?HIGH INTENSITY..........2.5-3.5 Blood Venipuncture / Unknown 07/19/2021 4:05 PM EDT 07/19/2021 4:05 PM EDT [facility] - 07/19/2021 5:22 PM EDT As of January 10, 2020 this assay is being performed on new instrumentation. Please note that the reference ranges may have changed. us Kiya Macias APRN LAB BLOOD ORDER LUCA Final Result Performing Organization Address [facility] [place] [address], [facility] [phone] * (ABNORMAL) Liver fibrosis, FibroTest-ActiTest panel ( [...] a>0.62 and a<=1.00 : A3 (severe activity) Hsqzf-9-Eyaqdenszpx in 186 106 - 279 mg/dL 07/26/2021 2:24 PM EDT [facility] Haptoglobin 209 43 - 212 mg/dL 07/26/2021 2:24 PM EDT [facility] Apolipoprotein A-1 132 101 - 198 mg/dL 07/26/2021 2:24 PM EDT [facility] Bilirubin, Total 0.4 0.2 - 1.2 mg/dL 07/26/2021 2:24 PM EDT [facility] GGT 90(H) 3 - 65 U/L 07/26/2021 2:24 PM EDT [facility] Alanine Aminotransferase (ALT) 10 6 - 29 U/L 07/26/2021 2:24 PM EDT [facility] Reference ID [id number] 07/26/2021 2:24 PM EDT [facility] Footnote SEE BELOW 07/26/2021 2:24 PM EDT [facility] Comment: The reliability of results is [...] The performance characteristics have been determined by [facility]. It has not been cleared or approved by the U.S. Food and Drug Administration. Performance characteristics refer to the analytical performance of the test. [employer], the associated logo, [employer] and all associated [employer] gonzales are the registered trademarks of [employer]. All third constitution party gonzales - (R) and (TM) - are the property of their respective owners. (C) [id number] [employer]. All rights reserved. Test performed by [employer] [facility] ?[id number], ?[place] [address] ? Urologic Nurse: Milana Baptiste MD,PHD,DECLAN Test Reported by [employer] [employer], [address] [place] [address] Teodoro Shore M.D., Ph.D., Director of Laboratories , [facility] [id number] Blood Venipuncture / Unknown 07/19/2021 4:05 PM [...] documented as of this encounter Care Teams Bench Scientist Relationship Specialty Start Date End Date Jace Blake DO [address] [place] [address] PCP - General Family Medicine 08/01/14 documented as of this encounter
--- OUTSIDE RECORDS SUMMARY | 2025-04-03 11:59 | XMS_ITS | Encounter Summary ---
Author Organization [facility] and [facility] Address [address] [place] [address] Care Team Providers Care Crusher Loader Operator Name Role Phone Jace Blake DO Primary Care Provider [phone] Encounter Details Date Type Department Care Team (Late st Contact Info) Description 06/02/2023 Scanned Document [facility] [address] [place] [address] External, Provider Social History Tobacco Use Types [...] EDT Follow Up Neuromuscular Medicine at [address] [address] Silvestre Maldonado MD [address] [place] [phone] 07/19/2025 12:20 PM EDT Follow Up Congestive Heart Failure Program at 800 [facility] [address] [place] [address] Diana Coppola MD [address] [place] [phone] 10/05/2025 12:30 PM EST Appointment PULMONARY FUNCTION LABORATORY - [address] [address] Aparna Chang MD [address] [place] [phone] Hallway, Pft Walk 10/05/2025 1:00 PM EST Appointment PULMONARY [facility]CTION LABORATORY - [address] [address] Aparna Chang MD [address] [place] [phone] 1, Pft Procedure Room 10/05/2025 2:00 PM EST Office Visit [facility] [address] [phone] Aparna Chang MD [address] [place] [phone] documented as of this encounter Procedures [...] documented as of this encounter Care Teams Crusher Loader Operator Relationship Specialty Start Date End Date Jace Blake DO [address] [place] [address] PCP - General Family Medicine 08/01/14 documented as of this encounter
--- OUTSIDE RECORDS SUMMARY | 2025-04-03 11:59 | XMS_ITS | Encounter Summary ---
Author Organization [facility] Address [address] [place] [address] Care Team Providers Care Steel Spar Operator Name Role Phone Jace Blake MD Primary Care Provider Provider, Rachid GARCIA Unavailable Unavaila Andres Topete MD Unavailable [phone] Aki Ross MD Unavailable [phone] Ursula Boo MD Unavailable [phone] Rocio Youssef PA-C Unavailable [phone] Emeterio Valencia MD Unavailable Diana Coppola MD Unavailable Encounter Details Date Type Department Care Team (Late st Contact Info) Description 07/01/2023 Scanned Document [facility] [place] [address] [place] [address] Provider, Tom, [address] [place] [address] Social History Tobacco Use Types Packs/Day Years [...] [facility] [place] [address] [phone] Aki Ross MD [address] [place] [address] 05/11/2025 1:40 PM EDT Office Visit [facility] Dermatology [place] [address] [place] [phone] Nico Bailey MD [address] [place] [address] documented as of this encounter Visit Diagnoses Not on filedocumented in this encounter Additional Health Concerns Infection Onset Date Last Indicated Resolved Time R/O Gastrointestinal Infection 03/22/2025 03/22/2025 03/23/2025 10:28 PM EDT documented as of this encounter Care Teams Steel Spar Operator Relationship Specialty Start Date End Date Jace Blake MD [address] [place] [address] PCP - General Psychiatry, General 05/04/17 Provider, MD Rachid 04/27/17 Andres Lakhani MD [address] [place] [address] Operators School Manager Cardiology 07/08/19 Aki Ross MD [address] [place] [address] Primary Operators School Manager Cardiovascular Disease 07/08/19 Ursula Boo MD [address] [address] Gastroenterology 06/07/20 Rocio Youssef PA-C [address] [place] [address] Physician Steno Pool Supervisor Gastroenterology 06/07/20 Emeterio Valencia MD [address] [place] [address] Clinician Pulmonary Medicine 06/20/20 Diana Coppola MD [address] [place] [address] Internal Medicine 03/22/25 documented as of this encounter
--- OUTSIDE RECORDS SUMMARY | 2025-04-03 11:59 | XMS_ITS | Encounter Summary ---
Author Organization [facility] and [facility] Address [address] [place] [address] Care Team Providers Care Vb Developer Name Role Phone HaydenJace Primary Care Provider [phone] Encounter Details Date Type Department Care Team (Late st Contact Info) Description 06/05/2023 Transcribed Orders [facility]RAW [facility]ATION [address] [address] Meghana Hunter MD [address] [place] [phone] Social History Tobacco Use Types Packs/Day [...] Follow Up Neuromuscular Medicine at [address] [address] Silvestre Maldonado MD 800 [place] [address] 07/19/2025 12:20 PM EDT Follow Up Congestive Heart Failure Program at 800 [facility] [address] [address] Diana Coppola MD 800 [place] [address] 10/05/2025 12:30 PM EST Appointment PULMONARY FUNCTION LABORATORY - [address] [phone] Aparna Chang MD [address] [place] [phone] Hallway, Pft Walk 10/05/2025 1:00 PM EST Appointment PULMONARY FUNCTION LABORATORY - [address] [address] Aparna Chang MD [address] [place] [phone] 1, Pft Procedure Room 10/05/2025 2:00 PM EST Office Visit [facility] [address] [address] Aparna Chang MD [address] [place] [phone] documented as of this encounter Visit Diagnoses Not on filedocumented in this encounter Additional Health Concerns Assessment Noted Time PHQ-9 Depression Total Score: 0 07/10/20 21 10:52 AM EDT documented as of this encounter Care Teams Vb Developer Relationship Specialty Start Date End Date Jace Blake DO [address] [place] [phone] PCP - General Family Medicine 08/01/14 documented as of this encounter
--- OUTSIDE RECORDS SUMMARY | 2025-04-03 11:59 | XMS_ITS | Encounter Summary ---
Author Organization [facility] and [facility] Address [address] [place] [phone] Care Team Providers Care Information Receptionist Name Role Phone BlakeJace Primary Care Provider [phone] Encounter Details Date Type Department Care Team (Late st Contact Info) Description 03/27/2021 Scanned Document INTERFACE DEFAULT [address] [place] [address] System, Provider Not In Social History Tobacco [...] Follow Up [facility] Neuromuscular Medicine at [address] [address] Silvestre Maldonado MD [address] [place] [phone] 07/19/2025 12:20 PM EDT Follow Up Congestive Heart Failure Program at 800 [facility] [address] [place] [address] Diana Coppola MD [address] [place] [phone] 10/05/2025 12:30 PM EST Appointment PULMONARY FUNCTION LABORATORY - [address] [address] Aparna Chang MD [address] [place] [phone] [facility] P[facility] Walk 10/05/2025 1:00 PM EST Appointment PULMONARY FUNCTION LABORATORY - [address] [address] Aparna Chang MD [address] [place] [phone] 1, Pft Procedure Room 10/05/2025 2:00 PM EST Office Visit [facility] [address] [phone] Aparna Chang MD [address] [place] [phone] documented as of this encounter Visit Diagnoses Not on filedocumented in this encounter Additional Health Concerns Assessment Noted Time PHQ-9 Depression Total Score: 0 10/03/20 20 12:10 PM EST documented as of this encounter Care Teams Information Receptionist Relationship Specialty Start Date End Date Jace Blake DO [address] [place] [address] PCP - General Family Medicine 08/01/14 documented as of this encounter
--- OUTSIDE RECORDS SUMMARY | 2025-04-03 11:59 | XMS_ITS | Encounter Summary ---
Author Organization [facility] and [facility] Address [address] [place] [phone] Care Team Providers Care Quill Cleaning Machine Operator Name Role Phone Blake, Gary Primary Care Provider Encounter Details Date Type Department Care Team (Latest Contact Info) Description 04/03/2021 Transcribed Orders [facility] Laboratory Specimens [address] [place] [address] Yessica Ortega MD [address] [place] [phone] Lupus (HC Code) (Primary Dx); Pulmonary [...] [facility] 800 [facility] Lower Level [place], [place] [address] Silvestre Maldonado MD 800 [place] [address] 07/19/2025 12:20 PM EDT Follow Up Congestive Heart Failure Program at 800 [facility] 800 [facility] 2nd [place] [address] Diana Coppola MD 800 [place] [address] 10/05/2025 12:30 PM EST Appointment PULMONARY FUNCTION LABORATORY - [address] [phone] Aparna Chang MD [address] [place] [phone] Hallway, Pft Walk 10/05/2025 1:00 PM EST Appointment PULMONARY FUNCTION LABORATORY - [address] [phone] Aparna Chang MD [address] [place] [phone] 1, Pft Procedure Room 10/05/2025 2:00 PM EST Office Visit [facility] [address] [phone] Aparna Chang MD [address] [place] [phone] documented as of this encounter Results [...] Nucleic Acid Amplification Test (NAAT)/RT-PCR or TMA ([facility]). This is run on the [employer] system. It has been validated for clinical use by the [facility] (CLIA #: [id number]). It has been granted Emergency Use Authorization by the [place] FDA. Note that falsely negative results can be due to poor sample quality, suboptimal sample type, low viral load, and viral genome variability. This test has not been evaluated for use in asymptomatic individuals. Test ordering and interpretation is at the discretion of the ordering provider. Patient Information: https://www.fda.gov/media/600780/download ?? Provider Information: https://www.fda.gov/media/185703/download Test performance has not been evaluated in asymptomatic patients. Test ordering and result interpretation is at the discretion of the ordering provider. Viral NASOPHARYNGEAL STRUCTURE / Unknown Collection / Unknown 04/06/2021 8:42 AM EDT 04/06/2021 11:10 AM EDT Yessica Ortega MD MICROBIOLOGY - GENERAL ORDERAB LES Final Result [address] [phone] documented in this encounter Visit Diagnoses Diagnosis Lupus- Primary Systemic lupus erythematosus Pulmonary hypertension (HC Code) Other chronic pulmonary heart diseases Sjogren's syndrome, with unspecified organ involvement Pre-op testing Preoperative examination, unspecified documented in this encounter Additional Health Concerns Assessment Noted Time PHQ-9 Depression Total Score: 0 10/03/20 20 12:10 PM EST documented as of this encounter Care Teams Quill Cleaning Machine Operator Relationship Specialty Start Date End Date Jace Blake DO [address] [place] [address] PCP - General Family Medicine 08/01/14 documented as of this encounter
--- OUTSIDE RECORDS SUMMARY | 2025-04-03 11:59 | XMS_ITS | Encounter Summary ---
Author Organization [facility] Address [address] [place] [address] Care Team Providers Care Hog Counter Name Role Phone Jace Blake MD Primary Care Provider Provider, Rachid GARCIA Unavailable Unavaila Andres Topete MD Unavailable Aki Ross MD Unavailable [phone] Ursula Boo MD Unavailable [phone] Rocio Youssef PA-C Unavailable Emeterio Valencia MD Unavailable Diana Coppola MD Unavailable Encounter Details Date Type Department Care Team (Late st Contact Info) Description 05/03/2018 Scanned Document [facility] Vascular [place] [address] [place] [address] Provider, External, [address] [place] [address] Social History Tobacco Use Types Packs/Day Years [...] [facility] [place] [address] [phone] Aki Ross MD [address] [place] [address] 05/11/2025 1:40 PM EDT Office Visit [facility] Dermatology [place] [address] [place] [phone] Nico Bailey MD [address] [place] [address] documented as of this encounter Visit Diagnoses Not on filedocumented in this encounter Additional Health Concerns Infection Onset Date Last Indicated Resolved Time R/O Gastrointestinal Infection 03/22/2025 03/22/2025 03/23/2025 10:28 PM EDT documented as of this encounter Care Teams Hog Counter Relationship Specialty Start Date End Date Jace Blake MD [address] [place] [address] PCP - General Psychiatry, General 05/04/17 Rachid Robles MD 04/27/17 Andres Lakhani MD [address] [place] [address] Senior Insight Manager International Cardiology 07/08/19 Aki Ross MD [address] [place] [address] Primary Senior Insight Manager International Cardiovascular Disease 07/08/19 Ursula Boo MD [address] [address] Gastroenterology 06/07/20 Rocio Youssef PA-C [address] [address] Physician Senior Account Director Gastroenterology 06/07/20 [place] [address] [address] Clinician Pulmonary Medicine 06/20/20 Diana Coppola MD [address] [address] Internal Medicine 03/22/25 documented as of this encounter
--- OUTSIDE RECORDS SUMMARY | 2025-04-03 11:59 | XMS_ITS | Encounter Summary ---
Author Organization [facility] Address [address] [place] [address] Care Team Providers Care Director Of Communications Name Role Phone Blake, Gary Primary Care Provider [phone] Encounter Details Date Type Department Care Team (Late st Contact Info) Description 08/05/2021 Orders Only Rheumatology at [address], [place] [id number] Meghana Hunter MD [address] [place] [phone] LFT elevation Social History Tobacco Use [...] EDT Follow Up Neuromuscular Medicine at [address] [address] Silvsetre Maldonado MD 800 [place] [address] 07/19/2025 12:20 PM EDT Follow Up Congestive Heart Failure Program at [address] [facility] [address] [place] [address] Diana Coppola MD 800 [place] [address] 10/05/2025 12:30 PM EST Appointment PULMONARY FUNCTION LABORATORY - [address] [address] Aparna Chang MD [address] [place] [phone] [facility], Pft Walk 10/05/2025 1:00 PM EST Appointment PULMONARY FUNCTION LABORATORY - [address] [address] Aparna Chang MD [address] [place] [phone] 1, Pft Procedure Room 10/05/2025 2:00 PM EST Office Visit [facility] [address] [phone] Aparna Chang MD [address] [place] [phone] documented as of this encounter Procedures Procedure Name Priority Date/Time Associated Diagnosis Comments C-REACTIVE PROTEIN (CRP) Routine 08/05/2021 7:56 AM EDT LFT elevation documented in this encounter Results * (ABNORMAL) C-reactive protein (CRP) (08/05/2021 7:56 AM EDT) C-Reactive Protein 3.17(H) <0.30 mg/dL 08/05/2021 8:25 AM EDT [facility] Blood Venipuncture / Unknown 08/05/2021 7:56 AM EDT 08/05/2021 8:13 AM EDT us Meghana Hunter MD LAB BLOOD ORDERABLES Final Result Performing Organization Address City/State/[facility] Co de Phone Number [address] [phone] documented in this encounter Visit Diagnoses Diagnosis LFT elevation Other abnormal blood chemistry documented in this encounter Additional Health Concerns Assessment Noted Time PHQ-9 Depression Total Score: 0 07/10/20 21 10:52 AM EDT documented as of this encounter Care Teams Director Of Communications Relationship Specialty Start Date End Date Jace Blake DO [address] [place] [address] PCP - General Family Medicine 08/01/14 documented as of this encounter
--- OUTSIDE RECORDS SUMMARY | 2025-04-03 11:59 | XMS_ITS | Encounter Summary ---
Author Organization [facility] Address [address] [place] [address] Care Team Providers Care Manager Quantitative Name Role Phone Jace Blake MD Primary Care Provider Provider, Rachid GARCIA Unavailable Unavaila Andres Topete MD Unavailable [phone] Aki Ross MD Unavailable [phone] Ursula Boo MD Unavailable Rocio Youssef PA-C Unavailable Emeterio Valencia MD Unavailable Diana Coppola MD Unavailable Encounter Details Date Type Department Care Team (Late st Contact Info) Description 05/12/2018 Scanned Document [facility] [place] [address] [place] [address] Provider, External, [address] [place] [address] Social History Tobacco Use Types Packs/Day Years [...] Description 05/04/2025 10:00 AM EDT Office Visit [facility] [place] [address] [address] Aki Ross MD [address] [place] [address] 05/11/2025 1:40 PM EDT Office Visit [facility] [place] [facility] [place] [address] [place] [phone] Nico Bailey MD [address] [place] [address] documented as of this encounter Visit Diagnoses Not on filedocumented in this encounter Additional Health Concerns Infection Onset Date Last Indicated Resolved Time R/O Gastrointestinal Infection 03/22/2025 03/22/2025 03/23/2025 10:28 PM EDT documented as of this encounter Care Teams Manager Quantitative Relationship Specialty Start Date End Date Jace Blake MD [address] [place] [address] PCP - General Psychiatry, General 05/04/17 Rachid Robles MD 04/27/17 Andres Lakhani MD [address] [place] [address] Production Cell Leader Cardiology 07/08/19 Aki Ross MD [address] [place] [address] Primary Production Cell Leader Cardiovascular Disease 07/08/19 Ursula Boo MD [address] [address] Gastroenterology 06/07/20 Rocio Youssef PA-C [address] [address] Physician Terrazzo Layer Helper Gastroenterology 06/07/20 [place] [address] [address] Clinician Pulmonary Medicine 06/20/20 Diana Coppola MD [address] [address] Internal Medicine 03/22/25 documented as of this encounter
--- OUTSIDE RECORDS SUMMARY | 2025-04-03 11:59 | XMS_ITS | Clinical Summary ---
Author Organization [facility] ity Address [address] [place] [address] Care Team Providers Care Mechanical Commissioning Engineer Name Role Phone Blake, Gary Primary Care Provider [phone] Social History Tobacco Use Types Packs/Day Years [...] age to complete this topic Care Teams Mechanical Commissioning Engineer Relationship Specialty Start Date End Date Jace Blake DO [address] [place], [place] PCP - General 03/11/24
--- OUTSIDE RECORDS SUMMARY | 2025-04-03 11:59 | XMS_ITS | Encounter Summary ---
Author Organization [facility] Address [address] [place] [address] Care Team Providers Care Sales Solutions Associate Name Role Phone Jace Blake MD Primary Care Provider [phone] Provider, Rachid GARCIA Unavailable Unavaila Andres Topete MD Unavailable [phone] Aki Ross MD Unavailable [phone] Ursula Boo MD Unavailable [phone] Rocio Youssef PA-C Unavailable Emeterio Valencia MD Unavailable Diana Coppola MD Unavailable Encounter Details Date Type Department Care Team (Late st Contact Info) Description 02/27/2023 Scanned Document [facility] [address] [place] [address] Ursula Boo MD [address] [place] [phone] Social History Tobacco Use Types Packs/Day [...] [facility] [place] [address] [phone] Aki Ross MD [address] [place] [address] 05/11/2025 1:40 PM EDT Office Visit [facility] Dermatology [address] [phone] Nico Bailey MD [address] [place] [address] documented as of this encounter Visit Diagnoses Not on filedocumented in this encounter Additional Health Concerns Infection Onset Date Last Indicated Resolved Time R/O Gastrointestinal Infection 03/22/2025 03/22/2025 03/23/2025 10:28 PM EDT documented as of this encounter Care Teams Sales Solutions Associate Relationship Specialty Start Date End Date Jace Blake MD [address] [place] [address] PCP - General Psychiatry, General 05/04/17 Rachid Robles MD 04/27/17 Andres Lakhani MD [address] [place] [address] Laboratory Geneticist Cardiology 07/08/19 Aki Ross MD [address] [address] Primary Laboratory Geneticist Cardiovascular Disease 07/08/19 Ursula Boo MD [address] [address] Gastroenterology 06/07/20 Rocio Youssef PA-C [address] [place] [address] Physician Tank Insulator Rubber Gastroenterology 06/07/20 Emeterio Valencia MD [address] [place] [address] Clinician Pulmonary Medicine 06/20/20 Diana Coppola MD [address] [place] [address] Internal Medicine 03/22/25 documented as of this encounter
--- OUTSIDE RECORDS SUMMARY | 2025-04-03 11:59 | XMS_ITS | Encounter Summary ---
Author Organization [facility] Address [address] [place] [address] Care Team Providers Care Dish Stacker Name Role Phone Blake, Gary Primary Care Provider [phone] Encounter Details Date Type Department Care Team (Latest Contact Info) Description 04/30/2023 Transcribed Orders [facility] 45 [place] [address] Aki Ross MD [address] [address] Chronic diastolic heart failure (HC [...] EDT Follow Up Neuromuscular Medicine at 800 [place] [phone] Silvestre Maldonado MD 800 [facility] [place] [address] 07/19/2025 12:20 PM EDT Follow Up Congestive Heart Failure Program at 800 [facility] [address] [place] [address] Diana Coppola MD 800 [place] [address] 10/05/2025 12:30 PM EST Appointment PULMONARY FUNCTION LABORATORY - [address] [address] Aparna Chang MD [address] [place] [phone] [facility], Pft Walk 10/05/2025 1:00 PM EST Appointment PULMONARY FUNCTION LABORATORY - [address] [address] Aparna Chang MD [address] [place] [phone] 1, Pft Procedure Room 10/05/2025 2:00 PM EST Office Visit [facility] [address] [phone] Aparna Chang MD [address] [place] [phone] documented as of this encounter Results * (ABNORMAL) NT-proBrain natriuretic peptide (04/30/2023 11:46 AM EDT) NT-proBNP 280.0(H) <125.0 pg/mL 04/30/2023 1:14 PM EDT [facility] Blood Venipuncture / Unknown 04/30/2023 11:46 AM EDT 04/30/2023 11:46 AM EDT us Aki Ross MD LAB BLOOD ORDERABLES [place] [address], [facility] [phone] documented in this encounter Visit Diagnoses Diagnosis Chronic diastolic heart failure (HC Code)- Primary Chronic diastolic heart failure documented in this encounter Additional Health Concerns Assessment Noted Time PHQ-9 Depression Total Score: 0 07/10/20 21 10:52 AM EDT documented as of this encounter Care Teams Dish Stacker Relationship Specialty Start Date End Date Jace Blake DO [address] [place] [address] PCP - General Family Medicine 08/01/14 documented as of this encounter
--- OUTSIDE RECORDS SUMMARY | 2025-04-03 11:59 | XMS_ITS | Encounter Summary ---
Author Organization [facility] Address [address] [place] [address] Care Team Providers Care Account Engineer Name Role Phone Jace Blake MD Primary Care Provider Provider, Rachid GARCIA Unavailable Unavaila Andres Topete MD Unavailable [phone] Aki Ross MD Unavailable [phone] Ursula Boo MD Unavailable [phone] Rocio Youssef PA-C Unavailable Emeterio Valencia MD Unavailable Diana Coppola MD Unavailable Encounter Details Date Type Department Care Team (Late st Contact Info) Description 06/24/[address] [facility] [address] [place] [address] Ursula Boo MD [address] [place] [phone] Social History Tobacco Use Types Packs/Day [...] [facility] [place] [address] [phone] Aki Ross MD [address] [place] [address] 05/11/2025 1:40 PM EDT Office Visit [facility] Dermatology [address] [phone] Nico Bailey MD [address] [place] [address] documented as of this encounter Visit Diagnoses Not on filedocumented in this encounter Additional Health Concerns Infection Onset Date Last Indicated Resolved Time R/O Gastrointestinal Infection 03/22/2025 03/22/2025 03/23/2025 10:28 PM EDT documented as of this encounter Care Teams Account Engineer Relationship Specialty Start Date End Date Jace Blake MD [address] [place] [address] PCP - General Psychiatry, General 05/04/17 Rachid Robles MD 04/27/17 Andres Lakhani MD [address] [place] [address] Landing Support Specialist Cardiology 07/08/19 Aki Ross MD [address] [address] Primary Landing Support Specialist Cardiovascular Disease 07/08/19 Ursula Boo MD [address] [address] Gastroenterology 06/07/20 Rocio Youssef PA-C [address] [place] [address] Physician Fighter Pilot Gastroenterology 06/07/20 Emeterio Valencia MD [address] [place] [address] Clinician Pulmonary Medicine 06/20/20 Diana Coppola MD [address] [place] [address] Internal Medicine 03/22/25 documented as of this encounter
--- OUTSIDE RECORDS SUMMARY | 2025-04-03 11:59 | XMS_ITS | Encounter Summary ---
Author Organization [facility] Address [address] [place] [address] Care Team Providers Care Access Developer Name Role Phone Jace Blake MD Primary Care Provider Provider, Rachid GARCIA Unavailable Unavaila Andres Topete MD Unavailable Aki Ross MD Unavailable [phone] Ursula Boo MD Unavailable Rocio Youssef PA-C Unavailable Emeterio Valencia MD Unavailable Diana Coppola MD Unavailable Encounter Details Date Type Department Care Team (Late st Contact Info) Description 02/19/2023 Scanned Document [facility] [address] [place] [address] Tl Mancera, WALDEMAR 5 [facility] 2 [place] [address] Social History Tobacco Use Types [...] [facility] [place] [address] [phone] Aki Ross MD [address] [place] [address] 05/11/2025 1:40 PM EDT Office Visit [facility] Dermatology [place] 35 [place] [address] Nico Bailey MD [address] [place] [address] documented as of this encounter Visit Diagnoses Not on filedocumented in this encounter Additional Health Concerns Infection Onset Date Last Indicated Resolved Time R/O Gastrointestinal Infection 03/22/2025 03/22/2025 03/23/2025 10:28 PM EDT documented as of this encounter Care Teams Access Developer Relationship Specialty Start Date End Date Jace Blake MD [address] [place] [address] PCP - General Psychiatry, General 05/04/17 Rachid Robles MD 04/27/17 Andres Lakhani MD [address] [place] [address] Culinary Artist Cardiology 07/08/19 Aki Ross MD [address] [address] Primary Culinary Artist Cardiovascular Disease 07/08/19 Ursula Boo MD [address] [address] Gastroenterology 06/07/20 Rocio Youssef PA-C [address] [place] [address] Physician Pocket Stitcher Gastroenterology 06/07/20 Emeterio Valencia MD [address] [place] [address] Clinician Pulmonary Medicine 06/20/20 Diana Coppola MD [address] [place] [address] Internal Medicine 03/22/25 documented as of this encounter
--- OUTSIDE RECORDS SUMMARY | 2025-04-03 11:59 | XMS_ITS | Encounter Summary ---
Author Organization [facility] Address [address] [place] [phone] Care Team Providers Care Roof Foreman Name Role Phone Blake, Gary Primary Care Provider [phone] Encounter Details Date Type Department Care Team (Late st Contact Info) Description 08/23/2020 Abstract [facility] [address] [facility], 2nd floor [facility], [address] [place], [place] [address] Aparna Chang MD [address] [place] [phone] Social History Tobacco Use Types Packs/Day [...] EDT Follow Up Neuromuscular Medicine at 800 [facility] 800 [place] [address] Silvestre Maldonaod MD 800 [place] [phone] 07/19/2025 12:20 PM EDT Follow Up Congestive Heart Failure Program at 800 [facility] [address] [place] [address] Diana Coppola MD 800 [place] [phone] 10/05/2025 12:30 PM EST Appointment PULMONARY FUNCTION LABORATORY - [address] [address] Aparna Chang MD [address] [place] [phone] [facility], Pft Walk 10/05/2025 1:00 PM EST Appointment PULMONARY FUNCTION LABORATORY - [address] [place] [address] Aparna Chang MD [address] [place] [phone] 1, Pft Procedure Room 10/05/2025 2:00 PM EST Office Visit [facility] [address] [address] Aparna Chang MD [address] [place] [phone] documented as of this encounter Visit Diagnoses Not on filedocumented in this encounter Care Teams Roof Foreman Relationship Specialty Start Date End Date Jace Blake DO [address] [place] [address] PCP - General Family Medicine 08/01/14 documented as of this encounter
--- OUTSIDE RECORDS SUMMARY | 2025-04-03 11:59 | XMS_ITS | Encounter Summary ---
Author Organization [facility] Address [address] [place] [phone] Care Team Providers Care Client Application Support Specialist Name Role Phone HaydenJace Primary Care Provider [phone] Encounter Details Date Type Department Care Team (Latest Contact Info) Description 04/03/2021 Transcribed Orders [facility] [place] [address] [place] [phone] Ambrosio Wallace MD PhD [address] [place] [phone] Idiopathic peripheral neuropathy (Primary Dx) Social [...] Follow Up Neuromuscular Medicine at [address] [address] Silvestre Maldonado MD 800 [place] [phone] 07/19/2025 12:20 PM EDT Follow Up [facility] Congestive Heart Failure Program at [address] [place] [address] [place] [address] Diana Coppola MD 800 [place] [phone] 10/05/2025 12:30 PM EST Appointment PULMONARY FUNCTION LABORATORY - [address] [place] [address] Aparna Chang MD [address] [place] [address], [place] [phone] [facility], Pft Walk 10/05/2025 1:00 PM EST Appointment PULMONARY FUNCTION LABORATORY - [address] [place] [address] Aparna Chang MD [address] [place] [phone] 1, Pft Procedure Room 10/05/2025 2:00 PM EST Office Visit [place] [facility] [address] [phone] Aparna Chang MD [address] [place] [phone] documented as of this encounter Procedures [...] (GH L LMW) (04/03/2021 10:18 AM EDT) [facility] Protein, Total 7.2 6.1 - 8.1 g/dL 04/07/2021 6:40 AM EDT [facility] Albumin 3.8 3.8 - 4.8 g/dL 04/07/2021 6:40 AM EDT [facility] Ckhmi-0-Dbmabiny 0.3 0.2 - 0.3 g/dL 04/07/2021 6:40 AM EDT [facility] Ogvmu-8-Mapdsaab 0.8 0.5 - 0.9 g/dL 04/07/2021 6:40 AM EDT [facility] Kfaz-3-Pbanpdlc 0.5 0.4 - 0.6 g/dL 04/07/2021 6:40 AM EDT [facility] Cgng-2-Uqdnqehj 0.5 0.2 - 0.5 g/dL 04/07/2021 6:40 AM EDT [facility] Gamma Globulin 1.3 0.8 - 1.7 g/dL 04/07/2021 6:40 AM EDT [facility] Abnormal Protein Band 1 SEE BELOW 04/07/2021 6:40 AM EDT [facility] Comment: No M Tian detected. ? Reference Range: None Detected Interpretation SEE BELOW 04/07/2021 6:40 AM EDT [facility] Comment: Normal Electrophoretic Pattern Test Performed at: [facility] [address] [place], [place] ??[phone] Teodoro Shore M.D., Ph.D.,Director of Laboratories Blood Venipuncture / Unknown 04/03/2021 10:18 AM EDT 04/03/2021 11:15 AM EDT us Ambrosio Wallace MD PhD LAB BLOOD ORDERABLES Final Result [facility] * Albumin (04/03/2021 10:18 AM EDT) Albumin 3.7 3.4 - 5.0 g/dL 04/03/2021 11:27 AM EDT [facility] Blood Venipuncture / Unknown 04/03/2021 10:18 AM EDT 04/03/2021 11:15 AM EDT us Ambrosio Wallace MD PhD LAB BLOOD ORDERABLES Final Result Performing Organization Address [facility] de Phone Number [address] [phone] * Protein, total (04/03/2021 10:18 AM EDT) Total Protein 7.7 6.4 - 8.2 g/dL 04/03/2021 11:28 AM EDT [facility] Blood Venipuncture / Unknown 04/03/2021 10:18 AM EDT 04/03/2021 11:15 AM EDT us Ambrosio Wallace MD PhD LAB BLOOD ORDERABLES Final Result Performing Organization Address City/[facility] Co de Phone Number [address] [phone] * Immunofixation, serum (04/03/2021 10:18 AM EDT) Immunofixation Interp., Serum SEE BELOW 04/07/2021 7:43 PM EDT [facility] Comment: No abnormal bands are present on immunofixation. Reference Range: No monoclonal proteins detected Test Performed at: [facility] [address] [place], [place] ??[phone] Teodoro Shore M.D., Ph.D.,Director of Laboratories Blood Venipuncture / Unknown 04/03/2021 10:18 AM EDT 04/03/2021 10:32 AM EDT Ambrosio Wallace MD PhD LAB BLOOD ORDERABLES Final Result Performing Organization Address City/[facility]/ZIP Co de Phone Number [facility] * Sjogren's Antibodies (SS-A,SS-B) (04/03/2021 10:18 AM EDT) Pathologist [facility] Sjogrens Ab, SS-A (Ro) 0.4 <7.0 Catarina U/mL 04/05/2021 1:48 PM EDT [facility] Comment: <7 ?? Catarina U/mL Negative 7-10 Catarina U/mL Equivocal >10 ??Catarina U/mL Positive Sjogrens Ab, SS-B (La) 0.3 <7.0 Catarina U/mL 04/05/2021 1:48 PM EDT [facility] Comment: <7 ?? Catarina U/mL Negative 7-10 Catarina U/mL Equivocal >10 ??Catarina U/mL Positive Blood Venipuncture / Unknown 04/03/2021 10:18 AM EDT 04/03/2021 10:33 AM EDT Ambrosio Wallace MD PhD LAB BLOOD ORDERABLES Final Result Performing Organization Address [facility]/State/ZIP Co de Phone Number [facility] [address] [place] [address] * (ABNORMAL) Sedimentation rate (ESR) (04/03/2021 10:18 AM EDT) Sedimentation Rate (ESR) 50(H) 0 - 20 mm/hr 04/03/2021 10:55 AM EDT [facility] Blood Venipuncture / Unknown 04/03/2021 10:18 AM EDT 04/03/2021 10:32 AM EDT Narrative [facility] - 04/03/2021 10:55 AM EDT As of November 06, 2020 this assay is being performed on new instrumentation. Please note that the reference range has changed. us Ambrosio Wallace MD PhD LAB BLOOD ORDERABLES Final Result [facility] [address] [phone] * Vitamin B12 (04/03/2021 10:18 AM EDT) Vitamin B12 596 211 - 911 pg/mL 04/03/2021 7:00 PM EDT [facility] Blood Venipuncture / Unknown 04/03/2021 10:18 AM EDT 04/03/2021 10:33 AM EDT us Ambrosio Wallace MD PhD LAB BLOOD ORDERABLES Final Result [facility] [address] [place] [address] documented in this encounter Visit Diagnoses Diagnosis Idiopathic peripheral neuropathy- Primary Unspecified hereditary and idiopathic peripheral neuropathy documented in this encounter Additional Health Concerns Assessment Noted Time PHQ-9 Depression Total Score: 0 10/03/20 20 12:10 PM EST documented as of this encounter Care Teams Client Application Support Specialist Relationship Specialty Start Date End Date Jace Blake DO [address] [place] [address] PCP - General Family Medicine 08/01/14 documented as of this encounter
--- OUTSIDE RECORDS SUMMARY | 2025-04-03 11:59 | XMS_ITS | Encounter Summary ---
Author Organization [facility] Address [address] [place] [address] Care Team Providers Care Valve Mechanic Name Role Phone Jace Blake MD Primary Care Provider Provider, Rachid GARCIA Unavailable Unavaila Andres Topete MD Unavailable [phone] Aki Ross MD Unavailable [phone] Ursula Boo MD Unavailable Rocio Youssef PA-C Unavailable [phone] Emeterio Valencia MD Unavailable Diana Coppola MD Unavailable Encounter Details Date Type Department Care Team (Late st Contact Info) Description 03/12/2023 Scanned Document [facility] [address] [place] [address] Ursula Boo MD [address] [place] [phone] Social History Tobacco Use Types Packs/Day [...] AM EDT Office Visit [facility] [place] [address] [phone] Aki Ross MD [address] [place] [address] 05/11/2025 1:40 PM EDT Office Visit [facility] Medical [facility] Dermatology [address] [address] Nico Bailey MD [address] [place] [address] documented as of this encounter Visit Diagnoses Not on filedocumented in this encounter Additional Health Concerns Infection Onset Date Last Indicated Resolved Time R/O Gastrointestinal Infection 03/22/2025 03/22/2025 03/23/2025 10:28 PM EDT documented as of this encounter Care Teams Valve Mechanic Relationship Specialty Start Date End Date Jace Blake MD [address] [place] [address] PCP - General Psychiatry, General 05/04/17 Rachid Robles MD 04/27/17 Andres Lakhani MD [address] [place] [address] Wool Sampler Cardiology 07/08/19 Aki Ross MD [address] [address] Primary Wool Sampler Cardiovascular Disease 07/08/19 Ursula Boo MD [address] [address] Gastroenterology 06/07/20 Rocio Youssef PA-C [address] [place] [address] Physician Aircraft Mechanic Electrical And Radio Gastroenterology 06/07/20 Emeterio Valencia MD [address] [place] [address] Clinician Pulmonary Medicine 06/20/20 Diana Coppola MD [address] [place] [address] Internal Medicine 03/22/25 documented as of this encounter
--- OUTSIDE RECORDS SUMMARY | 2025-04-03 11:59 | XMS_ITS | Encounter Summary ---
Author Organization [facility] Address [address] [place] [address] Care Team Providers Care Patent Legal Assistant Name Role Phone Jace Blake MD Primary Care Provider Provider, Rachid GARCIA Unavailable Unavaila Andres Topete MD Unavailable [phone] Aki Ross MD Unavailable Ursula Boo MD Unavailable Rocio Youssef PA-C Unavailable Emeterio Valencia MD Unavailable Diana Coppola MD Unavailable Encounter Details Date Type Department Care Team (Late st Contact Info) Description 07/01/2023 Scanned Document [facility] [address] [place] [address] Ursula Boo MD [address] [place] [phone] Social History Tobacco Use Types Packs/Day [...] [facility] [place] [address] [phone] Aki Ross MD [address] [place] [address] 05/11/2025 1:40 PM EDT Office Visit [facility] Medical [facility] Dermatology [address] [phone] Nico Bailey MD [address] [place] [address] documented as of this encounter Visit Diagnoses Not on filedocumented in this encounter Additional Health Concerns Infection Onset Date Last Indicated Resolved Time R/O Gastrointestinal Infection 03/22/2025 03/22/2025 03/23/2025 10:28 PM EDT documented as of this encounter Care Teams Patent Legal Assistant Relationship Specialty Start Date End Date Jace Blake MD [address] [place] [address] PCP - General Psychiatry, General 05/04/17 Rachid Robles MD 04/27/17 Andres Lakhani MD [address] [place] [address] Child Support Agent Cardiology 07/08/19 Aki Ross MD [address] [address] Primary Child Support Agent Cardiovascular Disease 07/08/19 Ursula Boo MD [address] [address] Gastroenterology 06/07/20 Rocio Youssef PA-C [address] [place] [address] Physician Metalizing Supervisor Gastroenterology 06/07/20 Emeetrio Valencia MD [address] [place] [address] Clinician Pulmonary Medicine 06/20/20 Diana Coppola MD [address] [place] [address] Internal Medicine 03/22/25 documented as of this encounter
--- OUTSIDE RECORDS SUMMARY | 2025-04-03 11:59 | XMS_ITS | Encounter Summary ---
Author Organization [facility] Address [address] [place] [address] Care Team Providers Care Flyer Maker Name Role Phone HaydenJace Primary Care Provider [phone] Encounter Details Date Type Department Care Team (Latest Contact Info) Description 08/20/2020 Transcribed Orders [facility] [address] [address] Aki Ross MD [address] [place] [phone] Chronic diastolic heart failure (HC Code) [...] EDT Follow Up Neuromuscular Medicine at [address] [address] Silvestre Maldonado MD 800 [place] [address] 07/19/2025 12:20 PM EDT Follow Up Congestive Heart Failure Program at 800 [facility] [address] [address] Diana Coppola MD 800 [place] [address] 10/05/2025 12:30 PM EST Appointment [facility] - [address] [phone] Aparna Chang MD [address] [place] [phone] Hallway, Pft Walk 10/05/2025 1:00 PM EST Appointment [facility] - [address] [address] Aparna Chang MD [address] [place] [phone] 1, Pft Procedure Room 10/05/2025 2:00 PM EST Office Visit [facility] [address] [address] Aparna Chang MD [address] [place] [phone] documented as of this encounter Procedures Procedure Name Priority Date/Time Associated Diagnosis Comments POTASSIUM Routine 08/20/2020 3:45 PM EDT Chronic diastolic heart failure (HC Code) documented in this encounter Results * Potassium (08/20/2020 3:45 PM EDT) [facility] Potassium 4.2 3.5 - 5.1 mmol/L 08/20/2020 4:39 PM EDT [facility] Blood Venipuncture / Unknown 08/20/2020 3:45 PM EDT 08/20/2020 3:45 PM EDT us Aki Ross MD LAB BLOOD ORDERABLES Final Res ult Performing Organization Address City/State/[facility] [place] [address], [facility] [phone] documented in this encounter Visit Diagnoses Diagnosis Chronic diastolic heart failure (HC Code)- Primary Chronic diastolic heart failure documented in this encounter Care Teams Flyer Maker Relationship Specialty Start Date End Date Jace Blake DO [address] [place] [address] PCP - General Family Medicine 08/01/14 documented as of this encounter
--- OUTSIDE RECORDS SUMMARY | 2025-04-03 11:59 | XMS_ITS | Encounter Summary ---
Author Organization [facility] Address [address] [place] [address] Care Team Providers Care Animal Rehabilitator Name Role Phone Blake, Gary Primary Care Provider Encounter Details Date Type Department Care Team (Late st Contact Info) Description 04/13/2023 Abstract [facility] [address] [phone] Aparna Chang MD [address] [place] [phone] Social History Tobacco Use Types Packs/Day [...] EDT Follow Up Neuromuscular Medicine at [address] [address] Silvestre Maldonado MD [address] [place] [phone] 07/19/2025 12:20 PM EDT Follow Up [facility] at [address] [facility] [address] [address] [address] Diana Coppola MD 800 [place] [address] 10/05/2025 12:30 PM EST Appointment [facility] - [address] [phone] Aparna Chang MD [address] [place] [phone] Hallway, Pft Walk 10/05/2025 1:00 PM EST Appointment [facility] - [address] [address] Aparna Chang MD [address] [place] [phone] 1, Pft Procedure Room 10/05/2025 2:00 PM EST Office Visit [facility] [address] [address] Aparna Chang MD [address] [place] [phone] documented as of this encounter Visit Diagnoses Not on filedocumented in this encounter Additional Health Concerns Assessment Noted Time PHQ-9 Depression Total Score: 0 07/10/20 21 10:52 AM EDT documented as of this encounter Care Teams Animal Rehabilitator Relationship Specialty Start Date End Date Jace Blake DO [address] [place] [phone] PCP - General Family Medicine 08/01/14 documented as of this encounter
--- OUTSIDE RECORDS SUMMARY | 2025-04-03 11:59 | XMS_ITS | Encounter Summary ---
Author Organization [facility] Address [address] [place] [address] Care Team Providers Care Technical Maintenance Technician Name Role Phone HaydenJace Primary Care Provider [phone] Encounter Details Date Type Department Care Team (Late st Contact Info) Description 04/24/2021 Scanned Document INTERFACE DEFAULT [address] [place] [phone] System, Provider Not In Social History Tobacco [...] Follow Up [facility] at [address] [address] Silvestre Maldonado MD [address] [place] [phone] 07/19/2025 12:20 PM EDT Follow Up Congestive Heart Failure Program at 800 [facility] [address] [place] [address] Diana Coppola MD [address] [place] [phone] 10/05/2025 12:30 PM EST Appointment [facility] - [address] [address] Aparna Chang MD [address] [place] [phone] Hallway, Pft Walk 10/05/2025 1:00 PM EST Appointment [facility] - [address] [address] Aparna Chang MD [address] [place] [phone] 1, Pft Procedure Room 10/05/2025 2:00 PM EST Office Visit [facility] [address] [phone] Aparna Chang MD [address] [place] [phone] documented as of this encounter Visit Diagnoses Not on filedocumented in this encounter Additional Health Concerns Assessment Noted Time PHQ-9 Depression Total Score: 0 04/17/20 21 11:27 AM EDT documented as of this encounter Care Teams Technical Maintenance Technician Relationship Specialty Start Date End Date Jace Blake DO [address] [place] [address] PCP - General Family Medicine 08/01/14 documented as of this encounter
--- OUTSIDE RECORDS SUMMARY | 2025-04-03 12:00 | XMS_ITS | Encounter Summary ---
Author Organization [facility] Address [address] [place] [address] Care Team Providers Care Corrections Corporal Name Role Phone BlakeJace Primary Care Provider [phone] Encounter Details Date Type Department Care Team (Late Contact Info) Description 06/06/2020 Scanned Document [facility] Health Information Management [address] [place] [address] External, Provider Social History Tobacco Use Types [...] Follow Up Neuromuscular Medicine at [address] [address] Silvestre Maldonado MD 800 [facility] [phone] 07/19/2025 12:20 PM EDT Follow Up Congestive Heart Failure Program at 800 [facility] [address] [place] [address] Diana Coppola MD 800 [facility] [address] 10/05/2025 12:30 PM EST Appointment [facility] - [address] [phone] Aparna Chang MD [address] [place] [phone] Hallway, Pft Walk 10/05/2025 1:00 PM EST Appointment [facility] - [address] [address] Aparna Chang MD [address] [place] [phone] 1, Pft Procedure Room 10/05/2025 2:00 PM EST Office Visit [facility] [address] [address] Aparna Chang MD [address] [place] [phone] documented as of this encounter Procedures Procedure Name Priority Date/Time Associated Diagnosis Comments LAB SCAN Routine 06/06/2020 documented in this encounter Results * Lab Scan (06/06/2020) us Provider External LAB BLOOD ORDERABLES Final Res ult documented in this encounter Visit Diagnoses Not on filedocumented in this encounter Care Teams Corrections Corporal Relationship Specialty Start Date End Date Jace Blake DO [address] [place] [address] PCP - General Family Medicine 08/01/14 documented as of this encounter
--- OUTSIDE RECORDS SUMMARY | 2025-04-03 12:00 | XMS_ITS | Encounter Summary ---
Author Organization [facility] Address [address] [place] [address] Care Team Providers Care Chain Carrier Name Role Phone Jace Blake MD Primary Care Provider Provider, Rachid GARCIA Unavailable Unavaila Andres Topete MD Unavailable [phone] Aki Ross MD Unavailable [phone] Ursula Boo MD Unavailable Rocio Youssef PA-C Unavailable Emeterio Valencia MD Unavailable Diana Coppola MD Unavailable Encounter Details Date Type Department Care Team (Late st Contact Info) Description 04/01/2019 Scanned Document [facility] [place] [address] [place] [address] Provider, External, [address] [place] [address] Social History Tobacco Use Types Packs/Day Years [...] Office Visit [facility] [place] [address] [address] Aki Ross MD [address] [place] [address] 05/11/2025 1:40 PM EDT Office Visit [facility] Dermatology [place] [address] [place] [phone] Nico Bailey MD [address] [place] [address] documented as of this encounter Visit Diagnoses Not on filedocumented in this encounter Additional Health Concerns Infection Onset Date Last Indicated Resolved Time R/O Gastrointestinal Infection 03/22/2025 03/22/2025 03/23/2025 10:28 PM EDT documented as of this encounter Care Teams Chain Carrier Relationship Specialty Start Date End Date Jace Blake MD [address] [place] [address] PCP - General Psychiatry, General 05/04/17 Rachid Robles MD 04/27/17 Andres Lakhani MD [address] [place] [address] [place] [facility] 07/08/19 Aki Ross MD [address] [place] [address] Primary [place] Cardiovascular Disease 07/08/19 Ursula Boo MD [address] [address] Gastroenterology 06/07/20 Rocio Youssef PA-C [address] [address] Physician Contract Attorney Gastroenterology 06/07/20 [place] [address] [address] Clinician Pulmonary Medicine 06/20/20 Diana Coppola MD [address] [address] Internal Medicine 03/22/25 documented as of this encounter
--- OUTSIDE RECORDS SUMMARY | 2025-04-03 12:00 | XMS_ITS | Encounter Summary ---
Author Organization [facility] Address [address] [place] [address] Care Team Providers Care Loans Officer Name Role Phone HaydenJace Primary Care Provider [phone] Encounter Details Date Type Department Care Team (Late Contact Info) Description 05/18/2020 Scanned Document [facility] Health Information Management [address] [place] [address] External, Provider Social History Tobacco Use Types [...] EDT Follow Up Neuromuscular Medicine at [address] [address] Silvestre Maldonado MD 800 [place] [phone] 07/19/2025 12:20 PM EDT Follow Up Congestive Heart Failure Program at 800 [facility] [address] [place] [address] Diana Coppola MD 800 [place] [address] 10/05/2025 12:30 PM EST Appointment [facility] - [address] [phone] Aparna Chang MD [address] [place] [phone] Hallway, Pft Walk 10/05/2025 1:00 PM EST Appointment [facility] - [address] [address] Aparna Chang MD [address] [place] [phone] 1, Pft Procedure Room 10/05/2025 2:00 PM EST Office Visit [facility] [address] [address] Aparna Chang MD [address] [place] [phone] documented as of this encounter Procedures Procedure Name Priority Date/Time Associated Diagnosis Comments LAB SCAN Routine 05/18/2020 documented in this encounter Results * Lab Scan (05/18/2020) us Provider External LAB BLOOD ORDERABLES Final Res ult documented in this encounter Visit Diagnoses Not on filedocumented in this encounter Care Teams Loans Officer Relationship Specialty Start Date End Date Jace Blake DO [address] [place] [address] PCP - General Family Medicine 08/01/14 documented as of this encounter
--- OUTSIDE RECORDS SUMMARY | 2025-04-03 12:00 | XMS_ITS | Encounter Summary ---
Author Organization [facility] Address [address] [place] [address] Care Team Providers Care Paint Roller Covermaker Name Role Phone BlakeJace Primary Care Provider [phone] Encounter Details Date Type Department Care Team (Late Contact Info) Description 08/07/2020 Scanned Document [facility] Health Information Management [address] [place] [address] External, Provider Social History Tobacco Use Types [...] Follow Up Neuromuscular Medicine at [address] [address] Silvestre Maldonado MD 800 [place] [phone] 07/19/2025 12:20 PM EDT Follow Up Congestive Heart Failure Program at 800 [facility] [address] [place] [address] Diana Coppola MD 800 [place] [address] 10/05/2025 12:30 PM EST Appointment [facility] - [address] [phone] Aparna Chang MD [address] [place] [phone] Hallway, Pft Walk 10/05/2025 1:00 PM EST Appointment [facility] - [address] [address] Aparna Chang MD [address] [place] [phone] 1, Pft Procedure Room 10/05/2025 2:00 PM EST Office Visit [facility] [address] [address] Aparna Chang MD [address] [place] [phone] documented as of this encounter Procedures Procedure Name Priority Date/Time Associated Diagnosis Comments LAB SCAN Routine 08/07/2020 documented in this encounter Results * Lab Scan (08/07/2020) us Provider External LAB BLOOD ORDERABLES Final Res ult documented in this encounter Visit Diagnoses Not on filedocumented in this encounter Care Teams Paint Roller Covermaker Relationship Specialty Start Date End Date Jace Blake DO [address] [place] [address] PCP - General Family Medicine 08/01/14 documented as of this encounter
--- OUTSIDE RECORDS SUMMARY | 2025-04-03 12:00 | XMS_ITS | Encounter Summary ---
Author Organization [facility] Address [address] [place] [address] Care Team Providers Care Operations And Intelligence Assistant Name Role Phone Blake, Gary Primary Care Provider [phone] Encounter Details Date Type Department Care Team (Late st Contact Info) Description 08/16/2020 Scanned Document [facility] Health Information Management [address] [place] [address] External, Provider Social History Tobacco Use Types [...] EDT Follow Up Neuromuscular Medicine at [address] [address] Silvestre Maldonado MD [address] [place] [phone] 07/19/2025 12:20 PM EDT Follow Up Congestive Heart Failure Program at 800 [facility] [address] [place] [address] Diana Coppola MD [address] [place] [phone] 10/05/2025 12:30 PM EST Appointment [facility] - [address] [address] Aparna Chang MD [address] [place] [phone] Hallway, Pft Walk 10/05/2025 1:00 PM EST Appointment [facility] - [address] [address] Aparna Chang MD [address] [place] [phone] 1, Pft Procedure Room 10/05/2025 2:00 PM EST Office Visit [facility] [address] [phone] Aparna Chang MD [address] [place] [phone] documented as of this encounter Procedures Procedure Name Priority Date/Time Associated Diagnosis Comments LAB SCAN Routine 08/16/2020 documented in this encounter Results * Lab Scan (08/16/2020) us Provider External LAB BLOOD ORDERABLES Final Res ult documented in this encounter Visit Diagnoses Not on filedocumented in this encounter Care Teams Operations And Intelligence Assistant Relationship Specialty Start Date End Date Jace Blake DO [address] [place] [address] PCP - General Family Medicine 08/01/14 documented as of this encounter
--- OUTSIDE RECORDS SUMMARY | 2025-04-03 12:00 | XMS_ITS | Encounter Summary ---
Author Organization [facility] Address [address] [place] [address] Care Team Providers Care Meter Installer Name Role Phone Jace Blake DO Primary Care Provider [phone] Encounter Details Date Type Department Care Team (Late st Contact Info) Description 09/14/2023 Scanned Document [facility] at 800 [facility] 800 [facility] [place], [place] [phone] Silvestre Maldonado MD [address] [place] [phone] Social History Tobacco Use Types Packs/Day Years [...] AM EDT Follow Up Neuromuscular Medicine at [address] [place] [address] 800 [facility] [place] [address] Silvestre Maldonado MD [address] [place] [phone] 07/19/2025 12:20 PM EDT Follow Up Congestive Heart Failure Program at [address] [place] [address] 800 [facility] 2nd [place] [address] Diana Coppola MD [address] [place] [address], [place] [address] 10/05/2025 12:30 PM EST Appointment [facility] - [address] [address] Aparna Chang MD [address] [place] [phone] Hallway, Pft Walk 10/05/2025 1:00 PM EST Appointment [facility] - [address] [address] Aparna Chang MD [address] [place] [phone] 1, Pft Procedure Room 10/05/2025 2:00 PM EST Office Visit [facility] [address] [phone] Aparna Chang MD [address] [place] [phone] documented as of this encounter Visit Diagnoses Not on filedocumented in this encounter Additional Health Concerns Assessment Noted Time PHQ-9 Depression Total Score: 0 07/01/20 23 10:25 AM EDT documented as of this encounter Care Teams Meter Installer Relationship Specialty Start Date End Date Jace Blake DO [address] [place] [address] PCP - General Family Medicine 08/01/14 documented as of this encounter
--- OUTSIDE RECORDS SUMMARY | 2025-04-03 12:00 | XMS_ITS | Data Portability ---
Author Organization [facility] Medical Address [address] [place] [address] Care Team Providers Care Digital Music Instructor Name Role Phone ROSIE MASSEY Primary Care Provider [phone] [facility] General Surgeon NELY BENTLEY Manager Of Environmental Services TEE URBANO Neurologist TAMANNA BELTRAN Licensed Sales Assistant MAHENDRA RODRÍGUEZ Handy Worker Assessment Encounter Date Assessment Date Assessment LastModified [...] Lab HbA1c (hemoglob in A1c), blood 2019 [facility] (Outpatient Lab), [address] [place], [address], 0 11:22:16 CBC w/ auto diff 2019 020 [facility] (Outpatient Lab), [address] [place], [address], 0 11:22:15 iron + TIBC + ferritin, serum 2019 [facility] (Outpatient Lab), [address] [place], [address], 0 12:06:52 vitamin B12, serum 2019 [facility] (Outpatient Lab), [address] [place], [address], 0 11:22:16 retic count, blood 2019 [facility] (Outpatient Lab), [address], [place], [address], 0 11:22:16 vitamin B12 + folate, serum or blood 2019 [facility] (Outpatient Lab), [address] [place], [address], 0 11:22:17 spep + immunoglo bulins, serum 2019 [facility] (Outpatient Lab), [address] [place], [address], 0 11:22:16 lipid panel, serum 2019 [facility] (Outpatient Lab), [address] [place], [address], 0 11:22:17 TSH, serum or plasma 2019 [facility] (Outpatient Lab), [address] [place], [address], 0 11:22:16 NICANOR (antinucl ear antibodie s) screen, serum 2019 [facility] (Outpatient Lab), [address] [place], [address], 0 13:04:58 C-reactiv e protein, quantitat tavares, serum or plasma 2019 [facility] (Outpatient Lab), [address] [place], [address], 0 11:22:16 dsDNA Ab, serum 2019 [facility] (Outpatient Lab), [address] [place], [address], 0 04:08:04 erythrocy te sedimenta tion rate by westergre n method 2019 [facility] (Outpatient Lab), [address] [place], [address], 0 11:22:16 C3 + C4 (compleme nt), serum 2019 [facility] (Outpatient Lab), [address] [place], [address], 0 11:22:16 rf (rheumato id factor) + anti-ccp abs, serum 2019 [facility] (Outpatient Lab), [address] [place], [address], 0 11:22:16 sjogren antibody panel, serum 2019 [facility] (Outpatient Lab), [address] [place], [address], 0 13:04:58 urinalysi s, complete 2019 [facility] (Outpatient Lab), [address] [place], [address], 0 11:22:16 gamma-glu tamyl transfera se (ggt), serum 2019 [facility] (Outpatient Lab), [address] [facility] [place], [address], 0 11:22:15 CMP, serum or plasma 2019 [facility] (Outpatient Lab), [address] [facility], [place], [address], 0 11:22:16 lipase, serum or plasma 2019 [facility] (Outpatient Lab), [address], [place], [address], 0 11:22:17 afp (alpha-fe toprotein ) tumor marker, serum or plasma 2019 [facility] (Outpatient Lab), [address], [place], [address], 0 11:22:17 ferritin, serum or plasma 2019 020 [facility] (Outpatient Lab), [address] [facility] [address], [place], [address], 0 11:22:15 amylase, serum or plasma 2019 020 [facility] (Outpatient Lab), [address] [facility] [address], [place], [address], 0 11:22:16 hepatitis panel (A+B+C), acute, serum 2019 [facility] (Outpatient Lab), [address], [place], [address], 0 11:22:16 Referral gastroent erologist referral 2019 LUPIS Sahu MD ([facility]), [facility] [address], [place], [address], 0 13:02:[address] referral 2019 LUPIS Urbano MD ([facility]), [address] [facility], [place], [address], 13:55:31 Procedures None recorded. Surgeries None recorded. Imaging US, duplex, venous, upper extremity , unilatera l - KORIN , please, hx of blood clots ( autoimmun e disorder) 2020 [facility], [address], [place], [address], 1 09:40:08 Medication Orders ondansetr on HCl 4 mg tablet 2020 mlnaomie [id number], [address], [place], [address], 1 23:10:34 gabapenti n 100 mg capsule 2019 INTERFACE [facility], [facility], [place], [address], 0 11:00:57 clonazepa m 0.5 mg tablet 2019 INTERFACE [facility], [address] [place] [address] [address] [place], [address], 0 09:25:27 gabapenti n 800 mg tablet 2019 INTERFACE [facility], [facility], [place], [address], 0 09:23:57 Patient TargetsNo targets recorded. Patient Instructions Encounter Date Encounter Id Patient Instructions Last Modified By Organization Details Last Modified Time 12/11/2020 [id number] Discussed and explained advance directives such as standard forms to the {{patient* caregi karla patient and caregiver}}. Face to face discussion lasted for a duration of 10 minutes. norma Not available 12/30/2020 10:08:10 02/15/2021 [id number] Extensive number of diagnosis or management options [...] identified. norma Not available 02/23/2021 09:48:57 09/03/2021 [id number] The following topics were discussed by me during the visit: - expected course of the disease - lab results and schedule future lab studies reviewed with patient -orders and follow up as documented in Lupis -call back if symptoms worsen or fail to improve or any new symptoms occur [email or web address] Not available 09/03/2021 23:26:29 Reason for Referral Neurologist Referral for Elba ropathy Referring Physician: Jeovanny Ramírez, Internal Medicine, Encounter Date: 10/25/2020 Cryolite Recovery Operator Referral for Liver function tests outside reference [...] 0 01:41 PM Adan arias Copy to: JEOVANYN MONTGOMERY MD [facility] Scheduling Dept (Imaging) [facility] [place], [address], 12/11/2020 17:03:17 11/26/19 21 11/26/2020 US, abdom [...] your referr al. If you are a [facility] er and would like to speak with a Radiol ogist concer jorge this exam, please call [phone] . MARIA ELENA MARCUS ND, MD DICTAT ING PHYSIC JOSHUA APPROV ING PHYSIC JOSHUA MARIA ELENA MARCUS ND, MD 2020 09:27 AM MM/ 09:27 AM Courte sy Copy to: JEOVANNY MONTGOMERY MD [facility] Radiology [facility] Scheduling Dept (Imaging) [address] [place], [address], 12/11/2020 17:03:17 02/21/20 21 02/15/2021 US, he [...] (DVT). Thank you for trusti Radiol ogy [facility] with your referr al. If you are a [facility] er and like to speak with a Radiol ogist concer jorge this exam, please call . KEATON Eason MD DICTAT ING PHYSIC JOSHUA APPROV ING PHYSIC JOSHUA GALINDO MD 2020 01:48 PM CHG/ 21 04:28 PM Courte sy Copy to: [email or web address] [facility] Scheduling Dept (Imaging) [address] [facility], [place], [address], 02/21/2021 14:33:19 Result Notes None recorded. Problems Name Problem SNOMED Code Status Onset Date Resolution Date Notes Provider Name and Address Organization Details Recorded Time Essential hypertension 32338051 Active 2018 Jeovanny Ramírez MD [address] [facility] [facility], [place], [address], [facility] 9 15:44:10 Congestive heart failure 65772686 Active 2018 35% EF Jeovanny Ramírez MD [address] [facility] [address], [place], [address], [facility] 0 10:47:34 Osteoarthritis 964915487 Active 2018 Jeovanny Ramírez MD [address] [facility], [place], [address], [facility] 9 15:44:46 History of depression 306206545 Active 2018 Jeovanny Ramírez MD [address], [place], [address], [facility] 9 15:48:55 Anemia 998835448 Active 2019 Jeovanny Ramírez MD [address] [facility], [place], [address], [facility] 0 10:47:03 Cardiomyopathy 23380155 Active 2019 Jeovanny Ramírez MD [address] [facility], [place], [address], [facility] 0 10:47:12 Pulmonary hypertension 26151964 Active 2019 Jeovanny Ramírez MD [address] [facility], [place], [address], [facility] 0 10:47:21 Multiple nodules of lung 665865969 Active 2019 Jeovanny Ramírez MD [address] [facility], [place], [address], [facility] 0 10:52:24 Iron deficiency 00889949 Active 2017 Jeovanny Ramírez MD [address] [facility] [facility], [place], [address], [facility] - [facility] 8 13:29:34 Anxiety 66612493 Active 2017 Jeovanny Ramírez MD [address] [facility] [facility], [place], [address], [facility] - [facility] 8 13:29:44 Hyperlipidemia 68455729 Active 2017 MD Dirk Tian [facility], [place], [address], [facility] 8 13:30:09 Gastroesophage al reflux disease 083331239 Active 2017 Jeovanny Ramírez MD [address] [facility], [place], [address], [facility] 8 13:30:17 Insomnia 877614307 Active 2017 Jeovanny Ramírez MD [address] [facility], [place], [address], [facility] 8 13:30:45 Neuropathy 099390154 Active 2017 Jeovanny Ramírez MD [address] [facility], [place], [address], [facility] 8 13:30:54 Atrial fibrillation 45884056 Active 2017 MD Dirk Tian [facility], [place], [address], [facility] 8 13:39:15 Cardiac pacemaker in situ 346626364 Active 2017 MD Dirk Tian [facility], [place], [address], [facility] 8 13:39:28 Single coronary vessel disease 758860124 Active 2017 Jeovanny Ramírez MD [address] [facility], [place], [address], [facility] 8 13:39:46 Problem Notes None recorded. Procedures Surgical History Date Name Laterality Status Provider Name and Address Organization Details Recorded Time 018 colonoscopy completed MD Dirk Tian [place] [facility], [place], [address], [facility] 12/06/2019 14:23:08 Back Surgery completed MD Dirk Tian [place] [facility], [place], [address], [facility] 02/06/2019 15:45:52 cardiac catheterization completed MD Dirk Tian [place] [facility], [place], [address], [facility] 02/06/2019 15:46:05 Appendectomy completed MD Dirk Tian [facility], [place], [address], [facility] 02/06/2019 15:46:13 hysterectomy completed MD Dirk Tian [place] [facility], [place], [address], [facility] 02/06/2019 15:46:26 cardioversion completed MD Dirk Tian [place] [facility], [place], [address], [facility] 02/06/2019 15:46:40 cardiac pacemaker procedure completed MD Dirk Tian [place] [address], [place], [address], [facility] 02/06/2019 15:46:53 arthroplasty of knee completed MD Dirk Tian [place] [facility], [place], [address], [facility] 02/06/2019 15:47:05 parathyroidectomy completed Lulu Alvarez [facility] 10/25/2020 10:24:23 Imaging Results Imaging Date Name Status LastModified by Organiz ation Details LastModified Time 11/06/2020 CT, orbit / sella / posterior fossa / ear, w/o contrast completed [facility] Scheduling Dept (Imaging) [address] [place] [address], [address], 12/11/2020 17:03:17 11/26/2020 US, abdomen, limited completed [facility] Scheduling Dept (Imaging) [address] [place] [address], [address], 12/11/2020 17:03:17 02/15/2021 US, duplex, venous, extremity, limited completed [address] Center Scheduling Dept (Imaging) [address] [place] [address], [address], 02/21/2021 14:33:19 Procedure Notes None recorded. Medical [...] /min 98 % 98 % 32.6 kg/m2 497731. 47 g 106 mm[Hg] 68 mm[Hg] [facility] 0 10:26:22 Date Recorded Body height Body temperature Respiratory rate Heart rate Oxygen saturation Oxygen saturation in Arterial blood by Pulse oximetry Systolic blood pressure Diastolic blood pressure Provider Name and Address Organization Details Last Updated DateTime 1 177.8 cm 97.8 [degF] 16 /min 68 /min 99 % 99 % 110 mm[Hg] 70 mm[Hg] [facility] 1 15:05:26 Date Recorded Body height Respiratory rate Body temperature Body mass index (BMI) Body weight Oxygen saturation Oxygen saturation in Arterial blood by Pulse oximetry Inhaled oxygen flow rate Heart rate Systolic blood pressure Diastolic blood pressure Provider Name and Address Organization Details Last Updated DateTime 1 177.8 cm 20 /min 98.4 [degF] 32.4 kg/m2 716747. 88 g 99 % 99 % 2 L/min 88 /min 116 mm[Hg] 70 mm[Hg] Lulu Benningho [facility] 1 08:58:53 Date Recorded Body height Respiratory rate Body temperature Heart rate Systolic blood pressure Diastolic blood pressure Provider Name and Address Organization Details Last Updated DateTime 1 177.8 cm 18 /min 98.4 [degF] 120 /min 166 mm[Hg] 84 mm[Hg] Lulu Quintana [facility] 1 14:33:56 Social History Question Answer Notes LastModified by Organizat ion Details LastModified Time Tobacco Smoking Status Former Smoker Not Available [employer] 09/25/2020 03:28:20 Are You Blind Or Do You Have Difficulty Seeing? No [id number] Information not available 09/25/2020 What Is Your Level Of Caffeine Consumption? Moderate Information not available 10/25/2020 How Much Tobacco Do You Chew? None [id number] Information not available 09/25/2020 If Patient Spent Time In [facility] - Does The Patient Live In [facility]? No Information not available 12/11/2020 In The 14 Days Before Symptom Onset, Did The Patient Spend Time In [facility]? No Information not available 10/25/2020 Have You Been To An Area Known To Be High Risk For COVID-19? No Information not available 10/25/2020 Are You Deaf Or Do You Have Serious Difficulty Hearing? No [id number] Information not available 09/25/2020 How Many Days Of Moderate To Strenuous Exercise, Like A Brisk Walk, Did You Do In The Last 7 Days? 1 [id number] Information not available 09/25/2020 On Those Days That You Engage In Moderate To Strenuous Exercise, How Many Minutes, On Average, Do You Exercise? 1 [id number] Information not available 09/25/2020 How Hard Is It For You To Pay For The Very Basics Like Food, Housing, Medical Care, And Heating? [id number] Information not available 12/06/2019 Live Alone Or With Others? With Others Information not available 12/06/2019 Marital Status Informa tion not available 12/06/2019 What Was The Date Of Your Most Recent Tobacco Screening? 10/25/2020 Information not available 10/25/2020 Sex: Unknown Functional Status Question Answer Note LastModified by Organizat ion Details LastModified Time What is your level of alcohol consumption? Occasional Information not available 10/25/2020 Do you or have you ever used smokeless tobacco? Never used smokeless tobacco [id number] Information not available 09/25/2020 Do you have difficulty walking or climbing stairs? No [id number] Information not available 09/25/2020 Do you have transportation difficulties? Yes Information not available 09/03/2021 Are you able to walk? YESWOREST [id number] Information not available 09/25/2020 Do you have difficulty doing errands alone? No [id number] Information not available 09/25/2020 Are you able to care for yourself? Yes [facility] Information n ot available 09/03/2021 Do you have difficulty dressing or bathing? No [id number] Information not available 09/25/2020 Do you or have you ever used e-cigarettes or vape? Never used electronic cigarettes [id number] Information not available 09/25/2020 Mental Status Question Answer Note LastModified by Organizat ion Details LastModified Time Do you feel stressed (tense, restless, nervous, or anxious, or unable to sleep at night)? [id number] Information not available 09/25/2020 Do you have difficulty concentrating, remembering or making decisions? No [id number] Information no t available 09/25/2020 Family History Relationship Description Onset Age of this Age Resolved Age Notes LastModified by Organization Details LastModified Time Father Cerebrovascu lar accident [email or web address] Not available 15:45:10 Mother Neoplasm of brain [email or web address] Not available 02/06 15:45:24 Medical History Condition Response Depression Y Arthritis Y Acid Reflux (GERD) Y High Cholesterol Y Allergies/Hayfever Y Congestive Heart Failure (CHF) Y Back Problems Y Heart Disease N Hypertension Y Gynecological HistoryNo gynecological history recorded. Obstetrics History GPAL:G 0 P 0 0 0 0 Immunizations Vaccine Type Date Status Note Provider Femi tiwari and Address Organization Details Recorded Time COVID-19, mRNA, LNP-S, PF, 100 mcg/0.5mL dose or 50 mcg/0.25mL dose 1 completed Lulu Antonio [facility] 02/15/2021 08:54:20 COVID-19, mRNA, LNP-S, PF, 100 mcg/0.5mL dose or 50 mcg/0.25mL dose 1 completed Lulu Footetevin [facility] 02/15/2021 08:54:20 Influenza, split virus, quadrivalent, preservative 9 completed Jeovanny Ramírez MD [address] [place] [address], [address], [facility] 09/27/2019 13:43:08 Pneumococcal conjugate PCV 13 0 completed Lulu Qamartevin [facility] 12/11/2020 15:04:27 Influenza, split virus, quadrivalent, preservative [address] [facility] 12/11/2020 15:05:02 Past Encounters Encounter ID Performer Location Encounter Start Date Encounter Closed Date Diagnosis/Indication Diagnosis SNOMED-CT Code Diagnosis ICD10 Code Diagnosis Note [id number] Jeovanny Ramírez MD Main Office [address] [place] [address],[facility] [address] [place] [address] 10/06/2018 12:58:14 10/06/2018 13:57:46 Hyperlipidemia 86815426 E78.2 check LP, CMP Anxiety 71268764 F41.9 Fatigue 77579947 R53.83 Mixed hyperlipidemia 267 869040 E78.2 Iron defic iency anemia 86066278 D50.9 Hyperglycemia 63270003 R 73.9 Vitamin D deficiency 347 33243 E55.9 Cobalamin deficiency 190 444137 E53.8 Increased frequency of urination 252409327 R35.0 Dog bite of hand 2951688 06 S61.459D Essential hypertension 08932883 I10 [id number] Jeovanny Ramírez MD Main Office [address] [facility] [place] [address] 12/20/2018 13:23:11 12/20/2018 16:31:54 Neuropathy 178959670 G62.9 Anti-nucle ar factor detected 474317649 R76.8 [id number] Jeovanny Ramírez MD Main Office [address] [place] [address] [address] [place] [address] 09/27/2019 12:51:33 09/27/2019 14:01:39 Screening mammography 12666376 Z12.31 Hyperparathyroidism 6699 9008 E21.3 Essential hypertension 85393319 I10 [id number] Jeovanny Ramírez MD Main Office [address] [place] [address] [address] [place] [address] 12/06/2019 13:47:22 12/06/2019 15:01:11 Adult health examination 339164543 Z00.00 Screening for cardiovascular system disease 890039450 Z13.6 discussed exercise, diet, control of lipids and BP. She has hx of CHF and cardiac pacemaker- stable at present Depression screening 171 516994 Z13.31 mild Hyperparathyroidism 6699 9008 E21.3 Abnormal urine 210662141 R82.90 Hyperlipidemia 31687876 E78.2 check LP, CMP Impaired g lucose tolerance 2862058 R73.09 Fatigue 21491197 R53.83 [id number] Jeovanny Ramírez MD Main Office [address] [place] [address] [address] [place] [address] 03/16/2020 08:43:45 03/16/2020 12:22:04 Neuropathy 478020474 G62.9 Essential hypertension 98958994 I10 stable, continue the same History of parathyroidectomy 0001332422 05160 Z90.89 Anxiety 46208842 F41.9 [id number] Jeovanny Ramírez MD Main Office [address] [place] [address] [address] [place] [address] 10/25/2020 10:07:27 10/25/2020 11:22:47 Neuropathy 807266927 G62.9 Liver func tion tests outside reference range 953818027 R94.5 Anemia 576727503 D64.9 Anti-nucle ar factor detected 701657031 R76.8 Hyperlipidemia 73110508 E78.2 check LP, CMP Fatigue 23824599 R53.83 Increased frequency of urination 553408532 R35.0 Impaired g lucose tolerance 5019160 R73.09 [id number] Jeovanny Ramírez MD Main Office [address] [place] [address],[address] [place] [address] 12/11/2020 14:28:52 12/11/2020 15:37:54 Adult health examination 101373923 Z00.00 Screening mammography 24 897913 Z12.31 Depression screening 171 671831 Z13.31 mild, treated Essential hypertension 02690872 I10 stable, continue the same [id number] Jeovanny Ramírez MD Main Office [address] [place] [address],[address] [place] [address] 02/15/2021 08:24:15 02/15/2021 09:34:20 Swelling of upper limb 299522393 R22.31 r/o DVT Essential hypertension 76961263 I10 stable, continue the same [id number] Jeovanny Ramírez MD Main Office [address] [place] [address],[facility] [address] [place] [address] 09/03/2021 14:13:07 09/03/2021 23:27:00 Nausea 287608545 R11.0 Abdominal pain 44695243 R10.9 r/o diverticul itisto ER Constipation 27751154 K5 9.00 Health Concerns Section Related Observation LastModified by Organization Detai ls LastModified Time None Recorded Concern Status LastModified by Organization Details LastModified Time None Recorded Advance Directives Directive None Recorded Payers Encounter Date Sequence Insurance Name Policy Number Policy Fields Covered Member ID Fields Member ID Guarantor Name 03/16/2020 2 [place] [id number] Kimberly Lr Bulat [id number] Kimberly Bulat 03/16/2020 1 [place] Kimberly Lr Bulat [id number] 1 Kimberly Bulat 10/25/2020 2 [place] [id number] Kimberly Lr Bulat [id number] Kimberly Bulat 10/25/2020 1 [place] Kimberly Lr Bulat [id number] 1 Kimberly Bulat 12/11/2020 2 [place] [facility] [id number] Kimberly Lr Bulat [id number] Kimberly Bulat 12/11/2020 1 [place] Kimberly Chaparroat [id number] 1 Kimberly Bulat 02/15/2021 2 [place] [facility] [id number] Kimberly Lr Bulat [id number] Kimberly Bulat 02/15/2021 1 [place] Kimberly Chaparroat [id number] 1 Kimberly Bulat 09/03/2021 2 [place] [facility] [id number] Kimberly Lr Bulat [id number] Kimberly Bulat 09/03/2021 1 [place] Kimberly Chaparroat [id number] 1 Kimberly Buldeisy Notes Date Note Type [...] all other [facility] providers [facility]. This includes examinations, diagnostic testing, treatment and other health care services deemed medically necessary in the Providers? professional judgment. Jeovanny Ramírez MD [address] [place], [address], [facility] 03/16/2020 12:21:43 0 text/html HyperlipidemiaReported bypatient.Type [...] the elevated LFTs is. She also saw replenishment merchandising associate for pulmonary HTN, lung nodules. She is on Oxygen now. Has gateman for follow up a fib. She was told she has cardiomyopathy, pulmonary HTN Saw a director of public relations - no dx of autoimmune disease was made. 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 Will order more tests ANEMIA Had GI work up, which discovered polyps in the intestine. Very few records are avaiable for [place] Jeovanny Ramírez MD [address] [place], [address], [facility] 10/25/2020 22:52:20 1 text/html Medicare Annual [...] the past year Jeovanny Ramírez MD [address] [place], [address] 12/30/2020 10:08:18 text/html EdemaReported bypatient.Location:[facility] Quality:legs do [...] and start Augmentin Jeovanny Ramírez MD [address] [place], [address] 02/23/2021 09:49:04 text/html Abdominal PainReported bypatient.Location:LLQ; epigastric Quality:bloating;cramping;a shantal;burning Severity:moderate Duration:constant Onset/Timing:worse Aggravating Factors:movement; eating Alleviating Factors:nothing gives relief Associated Symptoms:no fever; no chills;nausea;vomiting;cons tipation Previous Tests, Treatment and/or Diagnostic Procedures:noneNotes:Was seen in ER 2 days ago Jeovanny Ramírez MD [address] [facility], [place], [address], [facility] - [facility] 09/03/2021 23:26:37 OBGyn Episode No OBEpisode recorded.
--- OUTSIDE RECORDS SUMMARY | 2025-04-03 12:00 | XMS_ITS | Encounter Summary ---
Author Organization [facility] Address [address] [place] [address] Care Team Providers Care Helper Electrical Name Role Phone Jace Blake MD Primary Care Provider Provider, Conversion Unavailable Unavaila Andres Topete MD Unavailable [phone] Aki Ross MD Unavailable [phone] Ursula Boo MD Unavailable [phone] Rocio Youssef PA-C Unavailable Emeterio Valencia MD Unavailable Diana Coppola MD Unavailable Encounter Details Date Type Department Care Team (Late st Contact Info) Description 10/07/2024 Scanned Document [facility] [place] [address] [place] [phone] Provider, Cardiology Social History Tobacco Use [...] 05/04/2025 10:00 AM EDT Office Visit [facility] [place] [address] [address] Aki Ross MD [address] [place] [address] 05/11/2025 1:40 PM EDT Office Visit [facility] Dermatology [place] [address] [place] [address] Nico Bailey MD [address] [place] [address] documented as of this encounter Visit Diagnoses Not on filedocumented in this encounter Additional Health Concerns Infection Onset Date Last Indicated Resolved Time R/O Gastrointestinal Infection 03/22/2025 03/22/2025 03/23/2025 10:28 PM EDT documented as of this encounter Care Teams Helper Electrical Relationship Specialty Start Date End Date Jace Blake MD [address] [place] [address] PCP - General Psychiatry, General 05/04/17 ProviderRachid MD 04/27/17 Andres Lakhani MD [address] [place] [address] Manager Of Data Cardiology 07/08/19 Aki Ross MD [address] [place] [address] Primary Manager Of Data Cardiovascular Disease 07/08/19 Ursula Boo MD [address] [address] Gastroenterology 06/07/20 Rocio Youssef PA-C [address] [address] Physician Residential Mental Health Worker Gastroenterology 06/07/20 Emeterio Valencia MD [address] [address] Clinician Pulmonary Medicine 06/20/20 Diana Coppola MD 800 [facility] 2nd [place] [address] Internal Medicine 03/22/25 documented as of this encounter
--- OUTSIDE RECORDS SUMMARY | 2025-04-03 12:00 | XMS_ITS | Encounter Summary ---
Author Organization [facility] Address [address] [place] [address] Care Team Providers Care Tour Bus Driver Name Role Phone Miguel Angel Blakey Primary Care Provider [phone] Encounter Details Date Type Department Care Team (Late st Contact Info) Description 10/17/2024 Scanned Document INTERFACE DEFAULT [address] [place] [address] System, Provider Not In Social History Tobacco [...] EDT Follow Up Neuromuscular Medicine at [address] [address] Silvestre Maldonado MD [address] [place] [address] 07/19/2025 12:20 PM EDT Follow Up Congestive Heart Failure Program at 800 [facility] [address] [place] [address] Diana Coppola MD 800 [place] [phone] 10/05/2025 12:30 PM EST Appointment P[facility]CTION LABORATORY - [address] [address] Aparna Chang MD [address] [place] [phone] [facility], Pft Walk 10/05/2025 1:00 PM EST Appointment PULMON[facility]CTION LABORATORY - [address] [address] Aparna Chang MD [address] [place] [phone] 1, Pft Procedure Room 10/05/2025 2:00 PM EST Office Visit [facility] [address] [phone] Aparna Chang MD [address] [place] [phone] documented as of this encounter Procedures [...] documented as of this encounter Care Teams Tour Bus Driver Relationship Specialty Start Date End Date Jace Blake DO [address] [place] [address] PCP - General Family Medicine 08/01/14 documented as of this encounter
--- OUTSIDE RECORDS SUMMARY | 2025-04-03 12:00 | XMS_ITS | Encounter Summary ---
Author Organization [facility] and [facility] Address [address] [place] [address] Care Team Providers Care Receiving And Processing Supervisor Name Role Phone HaydenJace Primary Care Provider [phone] Encounter Details Date Type Department Care Team (Latest Contact Info) Description 07/14/2023 Transcribed Orders [facility] 45 [place] [address] Aki Ross MD [address] [address] Cardiac pacemaker in situ (Primary [...] EDT Follow Up Neuromuscular Medicine at [address] [place] [address] 800 [facility] [place] [address] Silvestre Maldonado MD [address] [place] [phone] 07/19/2025 12:20 PM EDT Follow Up Congestive Heart Failure Program at [address] [place] [address] 800 [facility] 2nd [facility] [place] [address] Diana Coppola MD [address] [place] [phone] 10/05/2025 12:30 PM EST Appointment PULMON[facility]CTION LABORATORY - [address] [address] Aparna Chang MD [address] [place] [phone] [facility], Pft Walk 10/05/2025 1:00 PM EST Appointment PULMONARY FUNCTION LABORATORY - [address] [address] Aparna Chang MD [address] [place] [phone] 1, Pft Procedure Room 10/05/2025 2:00 PM EST Office Visit [facility] [address] [phone] Aparna Chang MD [address] [place] [phone] documented as of this encounter Results * Partial thromboplastin time (BH GH LMW Q YH) (07/16/2023 1:03 PM EDT) PTT 29.1 21.0 - 32.0 seconds 07/16/2023 3:13 PM EDT [facility] Comment: RECOMMENDED THERAPEUTIC RANGE: 40-80 SECONDS Blood Venipuncture / Unknown 07/16/2023 1:03 PM EDT 07/16/2023 1:03 PM EDT Aki Ross MD LAB BLOOD ORDERABLES Final Res ult Performing Organization Address [facility] [place] [address], [facility] [phone] * Protime and INR (07/16/2023 1:03 PM EDT) Prothrombin Time 11.0 9.0 - 11.1 seconds 07/16/2023 3:13 PM EDT [facility] INR 1.14 0.90 - 1.16 07/16/2023 3:13 PM EDT [facility] Comment: RECOMMENDED INR THERAPEUTIC RANGES: ?STANDARD INTENSITY......2.0-3.0 ?HIGH INTENSITY..........2.5-3.5 Blood Venipuncture / Unknown 07/16/2023 1:03 PM EDT 07/16/2023 1:03 PM EDT Aki Ross MD LAB BLOOD ORDERABLES Final Res ult Performing Organization Address [facility] [place] [address], [facility] [phone] documented in this encounter Visit Diagnoses Diagnosis Cardiac pacemaker in situ- Primary Preop examination Preoperative examination, unspecified documented in this encounter Additional Health Concerns Assessment Noted Time PHQ-9 Depression Total Score: 0 07/01/20 23 10:25 AM EDT documented as of this encounter Care Teams Receiving And Processing Supervisor Relationship Specialty Start Date End Date Jace Blake DO [address] [place] [address] PCP - General Family Medicine 08/01/14 documented as of this encounter
--- OUTSIDE RECORDS SUMMARY | 2025-04-03 12:00 | XMS_ITS | Encounter Summary ---
Author Organization [facility] and [facility] Address [address] [place] [phone] Care Team Providers Care Reel [place]er Name Role Phone Blake, Gary Primary Care Provider [phone] Encounter Details Date Type Department Care Team (Late st Contact Info) Description 04/30/2020 Scanned Document [facility] Health Information Management [address] [place] [address] External, Provider Social History Tobacco Use Types [...] EDT Follow Up Neuromuscular Medicine at [address] [address] Silvestre Maldonado MD [address] [place] [phone] 07/19/2025 12:20 PM EDT Follow Up Congestive Heart Failure Program at 800 [facility] 800 [facility] 2nd [place] [address] Diana Coppola MD [address] [place] [phone] 10/05/2025 12:30 PM EST Appointment PUL[facility]CTION LABORATORY - [address] [address] Aparna Chang MD [address] [place] [phone] [facility], Pft Walk 10/05/2025 1:00 PM EST Appointment PULMON[facility]CTION LABORAT[facility] - [address] [address] Aparna Chang MD [address] [place] [phone] 1, Pft Procedure Room 10/05/2025 2:00 PM EST Office Visit [facility] [address] [phone] Aparna Chang MD [address] [place] [phone] documented as of this encounter Procedures Procedure Name Priority Date/Time Associated Diagnosis Comments LAB SCAN Routine 04/30/2020 documented in this encounter Results * Lab Scan (04/30/2020) us Provider External LAB BLOOD ORDERABLES Final Res ult documented in this encounter Visit Diagnoses Not on filedocumented in this encounter Care Teams Reel [place] Relationship Specialty Start Date End Date Jace Blake DO [address] [place] [address] PCP - General Family Medicine 08/01/14 documented as of this encounter
--- OUTSIDE RECORDS SUMMARY | 2025-04-03 12:00 | XMS_ITS | Encounter Summary ---
Author Organization [facility] and [facility] Address [address] [place] [phone] Care Team Providers Care Cigar Roller Name Role Phone Jace Blake DO Primary Care Provider [phone] Encounter Details Date Type Department Care Team (Late st Contact Info) Description 06/19/2023 Scanned Document Congestive Heart Failure Program at [address] 2nd [place], [place] [address] Iram Navarro, WALDEMAR [address] [place] [phone] Social History Tobacco Use Types Packs/Day Years [...] EDT Follow Up Neuromuscular Medicine at [address] [place] [address] 800 [facility] [place] [address] Silvestre Maldonado MD [address] [place] [phone] 07/19/2025 12:20 PM EDT Follow Up Congestive Heart Failure Program at [address] [place] [address] 2nd [place] [address] Diana Coppola MD [address] [place] [phone] 10/05/2025 12:30 PM EST Appointment PULMON[facility] FUNCTION LABORATORY - [address] [address] Aparna Chang MD [address] [place] [phone] [facility], Pft Walk 10/05/2025 1:00 PM EST Appointment PULMONARY FUNCTION LABORATORY - [address] [address] Aparna Chang MD [address] [place] [phone] 1, Pft Procedure Room 10/05/2025 2:00 PM EST Office Visit [facility] [address] [phone] Aparna Chang MD [address] [place] [phone] documented as of this encounter Visit Diagnoses Not on filedocumented in this encounter Additional Health Concerns Assessment Noted Time PHQ-9 Depression Total Score: 0 06/17/20 23 11:05 AM EDT documented as of this encounter Care Teams Cigar Roller Relationship Specialty Start Date End Date Jace Blake DO [address] [place] [address] PCP - General Family Medicine 08/01/14 documented as of this encounter
--- OUTSIDE RECORDS SUMMARY | 2025-04-03 12:00 | XMS_ITS | Encounter Summary ---
Author Organization [facility] and [facility] Address [address] [place] [address] Care Team Providers Care Deputy Manager Name Role Phone Jace Blake DO Primary Care Provider [phone] Reason for Visit * Reason Comments Medication Refill Encounter Details Date Type Department Care Team (Late st Contact Info) Description 09/27/2023 Refill [facility] Congestive Heart Failure Program at [address] 2nd [place] [address] Pao Steele APRN [address] [phone] Medication Refill Social History Tobacco Use Types [...] AM EDT Follow Up Neuromuscular Medicine at [address] [place] [address] 800 [facility] [place] [address] Silvestre Maldonado MD [address] [place] [phone] 07/19/2025 12:20 PM EDT Follow Up Congestive Heart Failure Program at [address] [place] [phone] Diana Coppola MD [address] [place] [phone] 10/05/2025 12:30 PM EST Appointment PULMONARY FUNCTION LABORATORY - [address] [address] Aparna Chang MD [address] [place] [phone] [facility], Pft Walk 10/05/2025 1:00 PM EST Appointment PULMONARY FUNCTION LABORATORY - [address] [address] Aparna Chang MD [address] [place] [phone] 1, Pft Procedure Room 10/05/2025 2:00 PM EST Office Visit [facility] [address] [phone] Aparna Chang MD [address] [place] [phone] documented as of this encounter Visit Diagnoses Diagnosis Chronic systolic heart failure (HC Code) Chronic systolic heart failure documented in this encounter Additional Health Concerns Assessment Noted Time PHQ-9 Depression Total Score: 0 07/01/20 23 10:25 AM EDT documented as of this encounter Care Teams Deputy Manager Relationship Specialty Start Date End Date Jace Blake DO [address] [place] [address] PCP - General Family Medicine 08/01/14 documented as of this encounter
--- OUTSIDE RECORDS SUMMARY | 2025-04-03 12:00 | XMS_ITS | Encounter Summary ---
Author Organization [facility] Address [address] [place] [address] Care Team Providers Care Chore Tender Name Role Phone Jace Blake MD Primary Care Provider Provider, Rachid GARCIA Unavailable Unavaila Andres Topete MD Unavailable Aki Ross MD Unavailable [phone] Ursula Boo MD Unavailable Rocio Youssef PA-C Unavailable Emeterio Valencia MD Unavailable Diana Coppola MD Unavailable Encounter Details Date Type Department Care Team (Late st Contact Info) Description 04/01/2019 Scanned Document [facility] [place] [address] [place] [address] Provider, External, 193 [place] [address] Social History Tobacco Use Types Packs/Day Years [...] 10:00 AM EDT Office Visit [facility] [place] [address] [address] Aki Ross MD [address] [place] [address] 05/11/2025 1:40 PM EDT Office Visit [facility] Dermatology [place] 35 [place] [phone] Nico Bailey MD [address] [place] [address] documented as of this encounter Visit Diagnoses Not on filedocumented in this encounter Additional Health Concerns Infection Onset Date Last Indicated Resolved Time R/O Gastrointestinal Infection 03/22/2025 03/22/2025 03/23/2025 10:28 PM EDT documented as of this encounter Care Teams Chore Tender Relationship Specialty Start Date End Date Jace Blake MD [address] [place] [address] PCP - General Psychiatry, General 05/04/17 Rachid Robles MD 04/27/17 Andres Lakhani MD [address] [place] [address] Basket Patcher Cardiology 07/08/19 Aki Ross MD [address] [place] [address] Primary Basket Patcher Cardiovascular Disease 07/08/19 Ursula Boo MD [address] [address] Gastroenterology 06/07/20 Rocio Youssef PA-C [address] [address] Physician Bending Shed Worker Gastroenterology 06/07/20 [place] [address] [address] Clinician Pulmonary Medicine 06/20/20 Diana Coppola MD [address] [address] Internal Medicine 03/22/25 documented as of this encounter
--- OUTSIDE RECORDS SUMMARY | 2025-04-03 12:00 | XMS_ITS | Encounter Summary ---
Author Organization [facility] and [facility] Address [address] [place] [phone] Care Team Providers Care Casting Machine Adjuster Name Role Phone Jace Blake DO Primary Care Provider [phone] Reason for Visit * Reason Onset Date Comments Medication Refill 01/04/2024 Encounter Details Date Type Department Care Team (Late st Contact Info) Description 01/04/2024 Telephone Congestive Heart Failure Program at [address] [place], [place] [address] Diana Coppola MD [address] [place] [phone] Medication Refill Social History Tobacco Use Types [...] mg was requested and sent to Nurse window rock to refill. Thanks Cheri Mensah documented in this encounter Plan of Treatment Upcoming Encounters Date Type Department Care Team (Late st Contact Info) Description 06/07/2025 10:30 AM EDT Follow Up Neuromuscular Medicine at [address] [place] [address] [place] [address] Silvestre aMldonado MD [address] [place] [phone] 07/19/2025 12:20 PM EDT Follow Up Congestive Heart Failure Program at [address] [place] [address] 2[address] [place] [address] Diana Coppola MD [address] [place] [phone] 10/05/2025 12:30 PM EST Appointment PULMONARY FUNCTION LABORATORY - [address] [address] Aparna Chang MD [address] [place] [phone] [facility], Pft Walk 10/05/2025 1:00 PM EST Appointment PULMONARY FUNCTION LABORATORY - [address] [address] Aparna Chang MD [address] [place] [phone] 1, Pft Procedure Room 10/05/2025 2:00 PM EST Office Visit [facility] [address] [address] Aparna Chang MD [address] [place] [phone] documented as of this encounter Visit Diagnoses Not on filedocumented in this encounter Additional Health Concerns Assessment Noted Time PHQ-9 Depression Total Score: 0 12/31/19 24 11:03 AM EST documented as of this encounter Care Teams Casting Machine Adjuster Relationship Specialty Start Date End Date Jace Blake DO [address] [place] [address] PCP - General Family Medicine 08/01/14 documented as of this encounter
--- OUTSIDE RECORDS SUMMARY | 2025-04-03 12:00 | XMS_ITS | Encounter Summary ---
Author Organization [facility] Address [address] [place] [address] Care Team Providers Care Quality Control Name Role Phone Jace Blake MD Primary Care Provider Provider, Rachid GARCIA Unavailable Unavaila Andres Topete MD Unavailable [phone] Aki Ross MD Unavailable [phone] Ursula Boo MD Unavailable Rocio Youssef PA-C Unavailable Emeterio Valencia MD Unavailable Diana Coppola MD Unavailable Encounter Details Date Type Department Care Team (Late st Contact Info) Description 03/31/2024 Scanned Document [facility] [address] [place] [address] Tl Mancera, WALDEMAR 5 [facility] 2 [place] [address] Social History Tobacco Use Types [...] [facility] [place] [address] [phone] Aki Ross MD [address] [place] [address] 05/11/2025 1:40 PM EDT Office Visit [facility] Dermatology [place] 35 [place] [address] Nico Bailey MD [address] [place] [address] documented as of this encounter Visit Diagnoses Not on filedocumented in this encounter Additional Health Concerns Infection Onset Date Last Indicated Resolved Time R/O Gastrointestinal Infection 03/22/2025 03/22/2025 03/23/2025 10:28 PM EDT documented as of this encounter Care Teams Quality Control Relationship Specialty Start Date End Date Jace Blake MD [address] [place] [address] PCP - General Psychiatry, General 05/04/17 Rachid Robles MD 04/27/17 Andres Lakhani MD [address] [place] [address] Payroll Analyst Cardiology 07/08/19 Aki Ross MD [address] [address] Primary Payroll Analyst Cardiovascular Disease 07/08/19 Ursula Boo MD [address] [address] Gastroenterology 06/07/20 Rocio Youssef PA-C [address] [place] [address] Physician Ultrasound Applications Specialist Gastroenterology 06/07/20 Emeterio Valencia MD [address] [place] [address] Clinician Pulmonary Medicine 06/20/20 Diana Coppola MD [address] [place] [address] Internal Medicine 03/22/25 documented as of this encounter
--- OUTSIDE RECORDS SUMMARY | 2025-04-03 12:00 | XMS_ITS | Encounter Summary ---
Author Organization [facility] Address [address] [place] [address] Care Team Providers Care Hotel Yardperson Name Role Phone Jace Blake MD Primary Care Provider Provider, Rachid GARCIA Unavailable Unavaila Andres Topete MD Unavailable [phone] Aki Ross MD Unavailable [phone] Ursula Boo MD Unavailable [phone] Rocio Youssef PA-C Unavailable Emeterio Valencia MD Unavailable Diana Coppola MD Unavailable Encounter Details Date Type Department Care Team (Late st Contact Info) Description 04/01/2019 Scanned Document [facility] [place] [address] [place] [address] Provider, External, [address] [place] [address] Social History Tobacco Use Types Packs/Day Years [...] [facility] [place] [address] [address] Aki Ross MD [address] [place] [address] 05/11/2025 1:40 PM EDT Office Visit [facility] Dermatology [place] 35 [place] [phone] Nico Bailey MD [address] [place] [address] documented as of this encounter Visit Diagnoses Not on filedocumented in this encounter Additional Health Concerns Infection Onset Date Last Indicated Resolved Time R/O Gastrointestinal Infection 03/22/2025 03/22/2025 03/23/2025 10:28 PM EDT documented as of this encounter Care Teams Hotel Yardperson Relationship Specialty Start Date End Date Jace Blake MD [address] [place] [address] PCP - General Psychiatry, General 05/04/17 Rachid Robles MD 04/27/17 Andres Lakhani MD [address] [place] [address] Insole Cementer Cardiology 07/08/19 Aki Ross MD [address] [place] [address] Primary Insole Cementer Cardiovascular Disease 07/08/19 Ursula Boo MD [address] [address] Gastroenterology 06/07/20 Rocio Youssef PA-C [address] [address] Physician Cut Out Stitcher Gastroenterology 06/07/20 [place] [address] [address] Clinician Pulmonary Medicine 06/20/20 Diana Coppola MD [address] [address] Internal Medicine 03/22/25 documented as of this encounter
--- OUTSIDE RECORDS SUMMARY | 2025-04-03 12:00 | XMS_ITS | Encounter Summary ---
Author Organization [facility] and [facility] Address [address] [place] [phone] Care Team Providers Care Repeat Photocomposing Machine Operator Name Role Phone Miguel Angel Blakey Primary Care Provider Encounter Details Date Type Department Care Team (Late st Contact Info) Description 01/01/2024 Scanned Document [facility] at [facility] [address] [facility], [address] [place] [address] Will Priest MD [address] [place] [phone] Social History Tobacco Use Types Packs/Day Years [...] EDT Follow Up Neuromuscular Medicine at [address] [place] [address] 800 [facility][Note 3] [place] [address] Silvestre Maldonado MD [address] [place] [phone] 07/19/2025 12:20 PM EDT Follow Up Congestive Heart Failure Program at [address] [place] [address] 800 [facility][Note 3] 2nd [place] [address] Diana Coppola MD [address] [place] [phone] 10/05/2025 12:30 PM EST Appointment PULMONARY FUNCTION LABORATORY - [address] [address] Aparna Chang MD [address] [place] [phone] [facility], Pft Walk 10/05/2025 1:00 PM EST Appointment PULMONARY FUNCTION LABORATORY - [address] [address] Aparna Chang MD [address] [place] [phone] 1, Pft Procedure Room 10/05/2025 2:00 PM EST Office Visit [facility] [address] [phone] Aparna Chang MD [address] [place] [phone] documented as of this encounter Procedures [...] documented as of this encounter Care Teams Repeat Photocomposing Machine Operator Relationship Specialty Start Date End Date Jace Blake DO [address] [place] [address] PCP - General Family Medicine 08/01/14 documented as of this encounter
--- OUTSIDE RECORDS SUMMARY | 2025-04-03 12:00 | XMS_ITS | Encounter Summary ---
Author Organization [facility] and [facility] Address [address] [place] [address] Care Team Providers Care Business Initiatives Manager Name Role Phone Jace Blake DO Primary Care Provider [phone] Encounter Details Date Type Department Care Team (Late st Contact Info) Description 07/16/2023 Transcribed Orders [facility] 45 [place] [address] Aki Ross MD [address] [address] Social History Tobacco Use Types [...] EDT Follow Up Neuromuscular Medicine at [address] [place] [address] 800 [facility] [place] [address] Silvestre Maldonado MD [address] [place] [phone] 07/19/2025 12:20 PM EDT Follow Up Congestive Heart Failure Program at [address] [place] [address] 800 [facility] 2nd [place] [address] Diana Coppola MD [address] [place] [address], [place] [address] 10/05/2025 12:30 PM EST Appointment PULMONARY FUNCTION LABORATORY - [address] [phone] Aparna Chang MD [address] [place] [phone] [facility], Pft Walk 10/05/2025 1:00 PM EST Appointment PULMONARY FUNCTION LABORATORY - [address] [address] Aparna Chang MD [address] [place] [phone] 1, Pft Procedure Room 10/05/2025 2:00 PM EST Office Visit [facility] [address] [phone] Aparna Chang MD [address] [place] [phone] documented as of this encounter Visit Diagnoses Not on filedocumented in this encounter Additional Health Concerns Assessment Noted Time PHQ-9 Depression Total Score: 0 07/01/20 23 10:25 AM EDT documented as of this encounter Care Teams Business Initiatives Manager Relationship Specialty Start Date End Date Jace Blake DO [address] [place] [address] PCP - General Family Medicine 08/01/14 documented as of this encounter
--- OUTSIDE RECORDS SUMMARY | 2025-04-03 12:00 | XMS_ITS | Encounter Summary ---
Author Organization [facility] Address [address] [place] [address] Care Team Providers Care Provider Network Manager Name Role Phone Jace Blake MD Primary Care Provider Provider, Rachid GARCIA Unavailable Unavaila Andres Topete MD Unavailable [phone] Aki Ross MD Unavailable [phone] Ursula Boo MD Unavailable [phone] Rocio Youssef PA-C Unavailable [phone] Emeterio Valencia MD Unavailable Diana Coppola MD Unavailable Encounter Details Date Type Department Care Team (Late st Contact Info) Description 10/27/2024 Scanned Document [facility] [address] [place] [address] Ursula Boo MD [address] [place] [phone] Social History Tobacco Use Types Packs/Day [...] AM EDT Office Visit [facility] Heart & Vascular [place] [address] [phone] Aki Ross MD [address] [place] [address] 05/11/2025 1:40 PM EDT Office Visit [facility] Medical [facility] Dermatology [address] [phone] Nico Bailey MD [address] [place] [address] documented as of this encounter Visit Diagnoses Not on filedocumented in this encounter Additional Health Concerns Infection Onset Date Last Indicated Resolved Time R/O Gastrointestinal Infection 03/22/2025 03/22/2025 03/23/2025 10:28 PM EDT documented as of this encounter Care Teams Provider Network Manager Relationship Specialty Start Date End Date aJce Blake MD [address] [place] [address] PCP - General Psychiatry, General 05/04/17 Rachid Robles MD 04/27/17 Andres Lakhani MD [address] [place] [address] Assistant District Attorney Cardiology 07/08/19 Aki Ross MD [address] [address] Primary Assistant District Attorney Cardiovascular Disease 07/08/19 Ursula Boo MD [address] [address] Gastroenterology 06/07/20 Rocio Youssef PA-C [address] [place] [address] Physician Director Of Knowledge Management Gastroenterology 06/07/20 Emeterio Valencia MD [address] [place] [address] Clinician Pulmonary Medicine 06/20/20 Diana Coppola MD [address] [place] [address] Internal Medicine 03/22/25 documented as of this encounter
--- OUTSIDE RECORDS SUMMARY | 2025-04-03 12:01 | XMS_ITS | Encounter Summary ---
Author Organization [facility] and [facility] Address [address] [place] [address] Care Team Providers Care Belt Maker Name Role Phone Miguel Angel Blakey Primary Care Provider [phone] Encounter Details Date Type Department Care Team (Late st Contact Info) Description 10/24/2024 Scanned Document INTERFACE DEFAULT [address] [place] [address] System, Provider Not In Social History Tobacco [...] EDT Follow Up Neuromuscular Medicine at [address] [address] Silvestre Maldonado MD [address] [place] [address] 07/19/2025 12:20 PM EDT Follow Up Congestive Heart Failure Program at 800 [facility] [address] [address] Diana Coppola MD 800 [place] [phone] 10/05/2025 12:30 PM EST Appointment PULMONARY FUNCTION LABORATORY - [address] [address] Aparna Chang MD [address] [place] [phone] [facility], Pft Walk 10/05/2025 1:00 PM EST Appointment PULMONARY FUNCTION LABORATORY - [address] [address] Aparna Chang MD [address] [place] [phone] 1, Pft Procedure Room 10/05/2025 2:00 PM EST Office Visit [facility] [address] [phone] Aparna Chang MD [address] [place] [phone] documented as of this encounter Visit Diagnoses Not on filedocumented in this encounter Additional Health Concerns Assessment Noted Time PHQ-9 Depression Total Score: 0 03/16/20 24 10:01 AM EDT documented as of this encounter Care Teams Belt Maker Relationship Specialty Start Date End Date Jace Blake DO [address] [place] [address] PCP - General Family Medicine 08/01/14 documented as of this encounter
--- OUTSIDE RECORDS SUMMARY | 2025-04-03 12:01 | XMS_ITS | Encounter Summary ---
Author Organization [facility] Address [address] [place] [address] Care Team Providers Care Yard Motor Operator Name Role Phone Jace Blake MD Primary Care Provider [phone] Provider, Rachid GARCIA Unavailable Unavaila Andres Topete MD Unavailable [phone] Aki Ross MD Unavailable [phone] Ursula Boo MD Unavailable Rocio Youssef PA-C Unavailable Emeterio Valencia MD Unavailable Diana Coppola MD Unavailable Encounter Details Date Type Department Care Team (Late st Contact Info) Description 10/30/2023 Scanned Document [facility] Dermatology [place] 35 [place] [address] Nico Bailey MD 35 [place], [place] [phone] Social History Tobacco Use Types Packs/Day Years [...] [facility] Heart & Vascular [place] [address] [address] Aki Ross MD [address] [place] [address] 05/11/2025 1:40 PM EDT Office Visit [facility] Medical [facility] Dermatology [place] 35 [place] [address] Nico Bailey MD [address] [place] [address] documented as of this encounter Visit Diagnoses Not on filedocumented in this encounter Additional Health Concerns Infection Onset Date Last Indicated Resolved Time R/O Gastrointestinal Infection 03/22/2025 03/22/2025 03/23/2025 10:28 PM EDT documented as of this encounter Care Teams Yard Motor Operator Relationship Specialty Start Date End Date Jace Blake MD [address] [place] [address] PCP - General Psychiatry, General 05/04/17 Provider, MD Rachid 04/27/17 Andres Lakhani MD [address] [place] [address] Therapist Asst Cardiology 07/08/19 Aki Ross MD [address] [place] [address] Primary Therapist Asst Cardiovascular Disease 07/08/19 Ursula Boo MD [address] [address] Gastroenterology 06/07/20 Rocio Youssef PA-C [address] [place] [address] Physician Ophthalmology Surgical Technician Gastroenterology 06/07/20 Emeterio Valencia MD [address] [place] [address] Clinician Pulmonary Medicine 06/20/20 Diana Coppola MD [address] [place] [address] Internal Medicine 03/22/25 documented as of this encounter
--- OUTSIDE RECORDS SUMMARY | 2025-04-03 12:01 | XMS_ITS | Encounter Summary ---
Author Organization [facility] Address [address] [place] [address] Care Team Providers Care Political Reporter Name Role Phone Jace Blake MD Primary Care Provider Provider, Rachid GARCIA Unavailable Unavaila Andres Topete MD Unavailable [phone] Aki Ross MD Unavailable [phone] Ursula Boo MD Unavailable Rocio Youssef PA-C Unavailable [phone] Emeterio Valencia MD Unavailable Diana Coppola MD Unavailable Encounter Details Date Type Department Care Team (Late st Contact Info) Description 07/17/[address] [facility] [address] [place] [address] Ursula Boo MD [address] [place] [phone] Social History Tobacco Use Types Packs/Day [...] 10:00 AM EDT Office Visit [facility] Heart & Vascular [place] 45 [facility] 102 [place] [phone] Aki Ross MD [address] [place] [address] 102 [place] [address] 05/11/2025 1:40 PM EDT Office Visit [facility] Dermatology [place] 35 [place] [address] Nico Bailey MD [address] [place] [address] documented as of this encounter Visit Diagnoses Not on filedocumented in this encounter Additional Health Concerns Infection Onset Date Last Indicated Resolved Time R/O Gastrointestinal Infection 03/22/2025 03/22/2025 03/23/2025 10:28 PM EDT documented as of this encounter Care Teams Political Reporter Relationship Specialty Start Date End Date Jace Blake MD [address] [place] [address] PCP - General Psychiatry, General 05/04/17 ProviderRachid MD 04/27/17 [place] [address] [place] [address] Parts Lister Cardiology 07/08/19 Aki Ross MD [address] [address] Primary Parts Lister Cardiovascular Disease 07/08/19 Ursula Boo MD [address] [address] Gastroenterology 06/07/20 Rocio Youssef PA-C [address] [address] Physician Maintenance Shop Welder Gastroenterology 06/07/20 Emeterio Valencia MD [address] [address] Clinician Pulmonary Medicine 06/20/20 Diana Coppola MD [address] [address] Internal Medicine 03/22/25 documented as of this encounter
--- OUTSIDE RECORDS SUMMARY | 2025-04-03 12:01 | XMS_ITS | Encounter Summary ---
Author Organization [facility] Address [address] [place] [address] Care Team Providers Care Dice Person Name Role Phone Jace Blake MD Primary Care Provider [phone] Provider, Rachid GARCIA Unavailable Unavaila Andres Topete MD Unavailable [phone] Aki Ross MD Unavailable [phone] Ursula Boo MD Unavailable Rocio Youssef PA-C Unavailable [phone] Emeterio Valencia MD Unavailable Diana Coppola MD Unavailable Encounter Details Date Type Department Care Team (Late st Contact Info) Description 08/29/2020 Scanned Document [facility] [address] [place] [address] Ursula Boo MD [address] [place] [phone] Social History Tobacco Use Types Packs/Day [...] Office Visit [facility] Vascular [place] 45 [facility] 102 [place] [phone] Aki Ross MD [address] [place] [address] 102 [place] [address] 05/11/2025 1:40 PM EDT Office Visit [facility] Dermatology [place] 35 [place] [address] Nico Bailey MD [address] [place] [address] documented as of this encounter Visit Diagnoses Not on filedocumented in this encounter Additional Health Concerns Infection Onset Date Last Indicated Resolved Time R/O Gastrointestinal Infection 03/22/2025 03/22/2025 03/23/2025 10:28 PM EDT documented as of this encounter Care Teams Dice Person Relationship Specialty Start Date End Date Jace Blake MD [address]8 [place] [address] PCP - General Psychiatry, General 05/04/17 ProviderRachid MD 04/27/17 [place] [address] [place] [address] Merchant Miller Cardiology 07/08/19 Aki Ross MD [address] [address] Primary Merchant Miller Cardiovascular Disease 07/08/19 Ursula Boo MD [address] [address] Gastroenterology 06/07/20 Rocio Youssef PA-C [address] [address] Physician Ball Fringe Machine Operator Gastroenterology 06/07/20 Emeterio Valencia MD [address] [address] Clinician Pulmonary Medicine 06/20/20 Diana Coppola MD [address] [address] Internal Medicine 03/22/25 documented as of this encounter
--- OUTSIDE RECORDS SUMMARY | 2025-04-03 12:01 | XMS_ITS | Encounter Summary ---
Author Organization [facility] and [facility] Address [address] [place] [phone] Care Team Providers Care Upper Marker Name Role Phone Blake, Gary Primary Care Provider [phone] Encounter Details Date Type Department Care Team (Late st Contact Info) Description 06/28/2019 Transcribed Orders [facility] 45 [place] [address] Aki Ross MD [address] [address] Social History Tobacco Use Types [...] AM EDT Follow Up Neuromuscular Medicine at [address] [place] [phone] Silvestre Maldonado MD [address] [place] [phone] 07/19/2025 12:20 PM EDT Follow Up [facility] Congestive Heart Failure Program at 800 [facility] [address] [place] [address] Diana Coppola MD 800 [place] [phone] 10/05/2025 12:30 PM EST Appointment PULMONARY FUNCTION LABORATORY - [address] [address] Aparna Chang MD [address] [place] [phone] [facility], Pft Walk 10/05/2025 1:00 PM EST Appointment PULMONARY FUNCTION LABORATORY - [address] [place] [address] Aparna Chang MD [address] [place] [phone] 1, Pft Procedure Room 10/05/2025 2:00 PM EST Office Visit [facility] [address] [phone] Aparna Chang MD [address] [place] [phone] documented as of this encounter Visit Diagnoses Not on filedocumented in this encounter Care Teams Upper Marker Relationship Specialty Start Date End Date Jace Blake DO [address] [place] [address] PCP - General Family Medicine 08/01/14 documented as of this encounter
--- OUTSIDE RECORDS SUMMARY | 2025-04-03 12:01 | XMS_ITS | Encounter Summary ---
Author Organization [facility] and [facility] Address [address] [place] [address] Care Team Providers Care Property Administrator Name Role Phone Miguel Angel Blakey Primary Care Provider [phone] Encounter Details Date Type Department Care Team (Late st Contact Info) Description 05/04/2019 Scanned Document Neurosurgery at [address] [place] [address] Narda Candelaria PA [address] [place] [phone] Social History Tobacco Use Types Packs/Day Years [...] Follow Up Neuromuscular Medicine at [address] [phone] Silvestre Maldonado MD [address] [place] [phone] 07/19/2025 12:20 PM EDT Follow Up Congestive Heart Failure Program at 800 [facility] [address] [place] [address] Diana Coppola MD 800 [place] [address] 10/05/2025 12:30 PM EST Appointment PULMONARY FUNCTION LABORATORY - [address] [address] Aparna Cahng MD [address] [place] [phone] [facility], Pft Walk 10/05/2025 1:00 PM EST Appointment PULMONARY FUNCTION LABORATORY - [address] [place] [address] Aparna Chang MD [address] [place] [phone] 1, Pft Procedure Room 10/05/2025 2:00 PM EST Office Visit [facility] [address] [phone] Aparna Chang MD [address] [place] [phone] documented as of this encounter Visit Diagnoses Not on filedocumented in this encounter Care Teams Property Administrator Relationship Specialty Start Date End Date Jace Blake DO [address] [place] [address] PCP - General Family Medicine 08/01/14 documented as of this encounter
--- OUTSIDE RECORDS SUMMARY | 2025-04-03 12:01 | XMS_ITS | Encounter Summary ---
Author Organization [facility] Address [address] [place] [address] Care Team Providers Care Cns Name Role Phone Jace Blake MD Primary Care Provider Provider, Rahcid GARCIA Unavailable Unavaila Andres Topete MD Unavailable [phone] Aki Ross MD Unavailable [phone] Ursula Boo MD Unavailable [phone] Rocio Youssef PA-C Unavailable Emeterio Valencia MD Unavailable Diana Coppola MD Unavailable Encounter Details Date Type Department Care Team (Late st Contact Info) Description 08/21/2020 Scanned Document [facility] [address] [place] [address] Tl Mancera, RADIOLOGIC TECHNOLOGY INSTRUCTOR 5 [facility] 2 [place] [address] Social History Tobacco Use Types [...] Visit [facility] [place] 45 [facility] 102 [place] [phone] Aki Ross MD [address] [place] [address] 102 [place], [place] [phone] 05/11/2025 1:40 PM EDT Office Visit [facility] Dermatology [place] 35 [place] [address] Nico Bailey MD [address] [place] [address] documented as of this encounter Visit Diagnoses Not on filedocumented in this encounter Additional Health Concerns Infection Onset Date Last Indicated Resolved Time R/O Gastrointestinal Infection 03/22/2025 03/22/2025 03/23/2025 10:28 PM EDT documented as of this encounter Care Teams Cns Relationship Specialty Start Date End Date Jace Blake MD [facility]8 [place] [address] PCP - General Psychiatry, General 05/04/17 ProviderRachid MD 04/27/17 Andres Lakhani MD [address]82 [place] [address] Card Checker Cardiology 07/08/19 Aki Ross MD [address] [address] Primary Card Checker Cardiovascular Disease 07/08/19 Ursula Boo MD [address] [address] Gastroenterology 06/07/20 Rocio Youssef PA-C [address] [place] [address] Physician Swimming Pool Maintenance Gastroenterology 06/07/20 Emeterio Valencia MD [address] [address] Clinician Pulmonary Medicine 06/20/20 Diana Coppola MD [address] [address] Internal Medicine 03/22/25 documented as of this encounter
--- OUTSIDE RECORDS SUMMARY | 2025-04-03 12:01 | XMS_ITS | Encounter Summary ---
Author Organization [facility] Address [address] [place] [address] Care Team Providers Care Trust Manager Assistant Name Role Phone Jace Blake MD Primary Care Provider Provider, Rachid GARCIA Unavailable Unavaila Andres Topete MD Unavailable [phone] Aki Ross MD Unavailable [phone] Ursula Boo MD Unavailable Rocio Youssef PA-C Unavailable [phone] Emeterio Valencia MD Unavailable Diana Coppola MD Unavailable Encounter Details Date Type Department Care Team (Late st Contact Info) Description 08/06/2020 Scanned Document [facility] [address] [place] [address] Ursula Boo MD [address] [place] [phone] Social History Tobacco Use Types Packs/Day [...] - [facility] [place] 45 [facility] 102 [place] [phone] Aki Ross MD [address] [place] [address] 102 [place] [address] 05/11/2025 1:40 PM EDT Office Visit [facility] Dermatology [place] 35 [place] [address] Nico Bailey MD [address] [place] [address] documented as of this encounter Visit Diagnoses Not on filedocumented in this encounter Additional Health Concerns Infection Onset Date Last Indicated Resolved Time R/O Gastrointestinal Infection 03/22/2025 03/22/2025 03/23/2025 10:28 PM EDT documented as of this encounter Care Teams Trust Manager Assistant Relationship Specialty Start Date End Date Jace Blake MD [address]8 [place] [address] PCP - General Psychiatry, General 05/04/17 ProviderRachid MD 04/27/17 [place] [address] [place] [address] Rental Coordinator Cardiology 07/08/19 Aki Ross MD [address] [address] Primary Rental Coordinator Cardiovascular Disease 07/08/19 Ursula Boo MD [address] [address] Gastroenterology 06/07/20 Rocio Youssef PA-C [address] [address] Physician Farmworker Animal Gastroenterology 06/07/20 Emeterio Valencia MD [address] [address] Clinician Pulmonary Medicine 06/20/20 Diana Coppola MD [address] [address] Internal Medicine 03/22/25 documented as of this encounter
--- OUTSIDE RECORDS SUMMARY | 2025-04-03 12:01 | XMS_ITS | Encounter Summary ---
Author Organization [facility] Address [address] [place] [address] Care Team Providers Care Polymerization Kettle Operator Name Role Phone Jace Blake MD Primary Care Provider Provider, Rachid GARCIA Unavailable Unavaila Andres Topete MD Unavailable [phone] Aki Ross MD Unavailable [phone] Ursula Boo MD Unavailable Rocio Youssef PA-C Unavailable Emeterio Valencia MD Unavailable Diana Coppola MD Unavailable Encounter Details Date Type Department Care Team (Late st Contact Info) Description 07/25/2020 Scanned Document [facility] [address] [place] [address] Ursula Boo MD [address] [place] [phone] Social History Tobacco Use Types Packs/Day [...] Visit formerly [facility] [place] 45 [facility] 102 [place] [phone] Aki Ross MD [address] [place] [address] 102 [place] [address] 05/11/2025 1:40 PM EDT Office Visit formerly [facility] [place] 35 [place] [address] Nico Bailey MD [address] [place] [address] documented as of this encounter Visit Diagnoses Not on filedocumented in this encounter Additional Health Concerns Infection Onset Date Last Indicated Resolved Time R/O Gastrointestinal Infection 03/22/2025 03/22/2025 03/23/2025 10:28 PM EDT documented as of this encounter Care Teams Polymerization Kettle Operator Relationship Specialty Start Date End Date Jace Blake MD [address] [place] [address] PCP - General Psychiatry, General 05/04/17 ProviderRachid MD 04/27/17 [place] [address] [place] [address] Brick Loader Cardiology 07/08/19 Aki Ross MD [address] [address] Primary Brick Loader Cardiovascular Disease 07/08/19 Ursula Boo MD [address] [address] Gastroenterology 06/07/20 Rocio Youssef PA-C [address] [address] Physician Commercial Attache Gastroenterology 06/07/20 Emeterio Valencia MD [address] [address] Clinician Pulmonary Medicine 06/20/20 Diana Coppola MD [address] [address] Internal Medicine 03/22/25 documented as of this encounter
--- OUTSIDE RECORDS SUMMARY | 2025-04-03 12:01 | XMS_ITS | Encounter Summary ---
Author Organization [facility] Address [address] [place] [address] Care Team Providers Care Sales Assistant Institutional Sales Name Role Phone Jace Blake MD Primary Care Provider [phone] Provider, Rachid GARCIA Unavailable Unavaila Andres Topete MD Unavailable [phone] Aki Ross MD Unavailable [phone] Ursula Boo MD Unavailable Rocio Youssef PA-C Unavailable [phone] Emeterio Valencia MD Unavailable Diana Coppola MD Unavailable Encounter Details Date Type Department Care Team (Late st Contact Info) Description 07/25/2020 Scanned Document [facility] [address] [place] [address] Ursula Boo MD [address] [place] [phone] Social History Tobacco Use Types Packs/Day [...] [facility] [place] 45 [facility] 102 [place] [phone] Aki Ross MD [address] [place] [address] 102 [place] [address] 05/11/2025 1:40 PM EDT Office Visit [facility] D[facility]ology [place] 35 [place] [address] Nico Bailey MD [address] [place] [address] documented as of this encounter Visit Diagnoses Not on filedocumented in this encounter Additional Health Concerns Infection Onset Date Last Indicated Resolved Time R/O Gastrointestinal Infection 03/22/2025 03/22/2025 03/23/2025 10:28 PM EDT documented as of this encounter Care Teams Sales Assistant Institutional Sales Relationship Specialty Start Date End Date Jace Blake MD [address]8 [place] [address] PCP - General Psychiatry, General 05/04/17 ProviderRachid MD 04/27/17 [place] [address] [place] [address] Lead Nurse Cardiology 07/08/19 Aki Ross MD [address] [address] Primary Lead Nurse Cardiovascular Disease 07/08/19 Ursula Boo MD [address] [address] Gastroenterology 06/07/20 Rocio Youssef PA-C [address] [address] Physician Floors Buffer Gastroenterology 06/07/20 Emeterio Valencia MD [address] [address] Clinician Pulmonary Medicine 06/20/20 Diana Coppola MD [address] [address] Internal Medicine 03/22/25 documented as of this encounter
--- OUTSIDE RECORDS SUMMARY | 2025-04-03 12:01 | XMS_ITS | Encounter Summary ---
Author Organization [facility] Address [address] [place] [address] Care Team Providers Care Dressage Instructor Name Role Phone Jace Blake MD Primary Care Provider Provider, Rachid GARCIA Unavailable Unavaila Andres Topete MD Unavailable [phone] Aki Ross MD Unavailable [phone] Ursula Boo MD Unavailable [phone] Rocio Youssef PA-C Unavailable [phone] Emeterio Valencia MD Unavailable Diana Coppola MD Unavailable Encounter Details Date Type Department Care Team (Late st Contact Info) Description 06/03/2017 Scanned Document [facility] [place] [address] [address] Aki Ross MD [address] [place] [address] 102 [place] [address] Social History Tobacco Use Types [...] [facility] [place] [address] [address] Aki Ross MD [address] [place] [address] 05/11/2025 1:40 PM EDT Office Visit [facility] Dermatology [place] 35 [place] [address] Nico Bailey MD [address] [place] [address] documented as of this encounter Visit Diagnoses Not on filedocumented in this encounter Additional Health Concerns Infection Onset Date Last Indicated Resolved Time R/O Gastrointestinal Infection 03/22/2025 03/22/2025 03/23/2025 10:28 PM EDT documented as of this encounter Care Teams Dressage Instructor Relationship Specialty Start Date End Date Jace Blake MD 1158 [place] [address] PCP - General Psychiatry, General 05/04/17 ProviderRachid MD 04/27/17 Andres Lakhani MD [address] [place] [address] Travel Agent Cardiology 07/08/19 Aki Ross MD [address] [place] [address] Primary Travel Agent Cardiovascular Disease 07/08/19 Ursula Boo MD [address] [address] Gastroenterology 06/07/20 Rocio Youssef PA-C [address] [address] Physician Installer Inspector Final Gastroenterology 06/07/20 Emeterio Valencia MD [address] [address] Clinician Pulmonary Medicine 06/20/20 Diana Coppola MD [address] [address] Internal Medicine 03/22/25 documented as of this encounter
--- OUTSIDE RECORDS SUMMARY | 2025-04-03 12:01 | XMS_ITS | Encounter Summary ---
Author Organization [facility] Address [address] [place] [address] Care Team Providers Care Career Center Director Name Role Phone Miguel Angel Blakey Primary Care Provider [phone] Encounter Details Date Type Department Care Team (Late st Contact Info) Description 05/04/2019 Scanned Document Neurosurgery at [address] [place] [address] Narda Candelaria PA [address] [place] [phone] Social History Tobacco Use Types Packs/Day Years [...] Follow Up Neuromuscular Medicine at [address] [address] Silvestre Maldonado MD [address] [place] [phone] 07/19/2025 12:20 PM EDT Follow Up Congestive Heart Failure Program at 800 [facility] [address] [place] [address] Diana Coppola MD 800 [place] [address] 10/05/2025 12:30 PM EST Appointment [facility] - [address] [address] Aparna Chang MD [address] [place] [phone] Hallway, Pft Walk 10/05/2025 1:00 PM EST Appointment [facility] - [address] [place] [address] Aparna Chang MD [address] [place] [phone] 1, Pft Procedure Room 10/05/2025 2:00 PM EST Office Visit [facility] [address] [phone] Aparna Chang MD [address] [place] [phone] documented as of this encounter Visit Diagnoses Not on filedocumented in this encounter Care Teams Career Center Director Relationship Specialty Start Date End Date Jace Blake DO [address] [place] [address] PCP - General Family Medicine 08/01/14 documented as of this encounter
--- OUTSIDE RECORDS SUMMARY | 2025-04-03 12:01 | XMS_ITS | Encounter Summary ---
Author Organization [facility] Address [address] [place] [address] Care Team Providers Care Finishing Machine Operator Automatic Name Role Phone Jace Blake MD Primary Care Provider [phone] Provider, Rachid GARCIA Unavailable Unavaila Andres Topete MD Unavailable Aki Ross MD Unavailable [phone] Ursula Boo MD Unavailable Rocio Youssef PA-C Unavailable Emeterio Valencia MD Unavailable Diana Coppoal MD Unavailable Encounter Details Date Type Department Care Team (Late st Contact Info) Description 06/19/2020 Scanned Document [facility] [address] [place] [address] Ursula Boo MD [address] [place] [phone] Social History Tobacco Use Types Packs/Day [...] Visit [facility] [place] [facility] 45 [facility] 102 [place] [phone] Aki Ross MD [address] [place] [address] 102 [place] [address] 05/11/2025 1:40 PM EDT Office Visit [facility] [place] [facility] 35 [place] [address] Nico Bailey MD [address] [place] [address] documented as of this encounter Visit Diagnoses Not on filedocumented in this encounter Additional Health Concerns Infection Onset Date Last Indicated Resolved Time R/O Gastrointestinal Infection 03/22/2025 03/22/2025 03/23/2025 10:28 PM EDT documented as of this encounter Care Teams Finishing Machine Operator Automatic Relationship Specialty Start Date End Date Jace Blake MD [address] [place] [address] PCP - General Psychiatry, General 05/04/17 ProviderRachid MD 04/27/17 Andres Lakhani MD [address] [place] [address] Telemetry Technician Cardiology 07/08/19 Aki Ross MD [address] [address] Primary Telemetry Technician Cardiovascular Disease 07/08/19 Ursula Boo MD [address] [address] Gastroenterology 06/07/20 Rocio Youssef PA-C [address] [address] Physician Door Slinger Gastroenterology 06/07/20 Emeterio Valencia MD [address] [address] Clinician Pulmonary Medicine 06/20/20 Diana Coppola MD [address] [address] Internal Medicine 03/22/25 documented as of this encounter
--- OUTSIDE RECORDS SUMMARY | 2025-04-03 12:01 | XMS_ITS | Encounter Summary ---
Author Organization [facility] Address [address] [place] [phone] Care Team Providers Care Medical Staffing Coordinator Name Role Phone Blake, Gary Primary Care Provider [phone] Encounter Details Date Type Department Care Team (Latest Contact Info) Description 06/24/2019 Transcribed Orders [facility] [address] [place] [address] Kenya Cortez MD [address] [place] [phone] Acquired polyneuropathy (HC Code) (Primary Dx); [...] EDT Follow Up Neuromuscular Medicine at 800 [facility] 800 [place], [place] [phone] Silvestre Maldonado MD 800 [place] [address] 07/19/2025 12:20 PM EDT Follow Up Congestive Heart Failure Program at 800 [facility] [address] [address] Diana Coppola MD 800 [place] [address] 10/05/2025 12:30 PM EST Appointment [facility] - [address] [address] Aparna Chang MD [address] [place] [phone] Hallway, Pft Walk 10/05/2025 1:00 PM EST Appointment [facility] - [address] [address] Aparna Chang MD [address] [place] [phone] 1, Pft Procedure Room 10/05/2025 2:00 PM EST Office Visit [facility] [address] [phone] Aparna Chang MD [address] [place] [phone] documented as of this encounter Procedures [...] analytical performance characteristics have been determined by [facility] [place], [place]. It has not been cleared or approved by the U.S. Food and Drug Administration. This assay has been validated pursuant to the CLIA regulations and is used for clinical purposes. Test Performed at: [facility] [place] [address] [place], [place] ??[address] Teodoro Shore M.D., Ph.D.,Director of Laboratories Blood Venipuncture / Unknown 06/24/2019 12:54 PM EDT 06/24/2019 1:52 PM EDT us Kenya Cortez MD LAB BLOOD ORDERABLES Final Resul t [facility] * Vitamin B12 (06/24/2019 12:54 PM EDT) Vitamin B12 880 232-1,245 pg/mL 06/24/2019 2:36 PM EDT [facility] Comment: As of 2019, this assay is now being performed on the [employer]. ??Please note the change in reference range. Blood Venipuncture / Unknown 06/24/2019 12:54 PM EDT 06/24/2019 1:52 PM EDT us Kenya Cortez MD LAB BLOOD ORDERABLES Final Resul t Performing Organization Address [facility] de Phone Number [facility] [address] [place] [address] * Immunoglobulin M (06/24/2019 12:54 PM EDT) Immunoglobulin M 190 35 - 263 mg/dL 06/24/2019 4:42 PM EDT [facility] Blood Venipuncture / Unknown 06/24/2019 12:54 PM EDT 06/24/2019 1:52 PM EDT us Kenya Cortez MD LAB BLOOD ORDERABLES Final Resul t Performing Organization Address [facility] de Phone Number [facility] [address] [place] [address] * Immunoglobulin G (06/24/2019 12:54 PM EDT) Immunoglobulin G 1,260 768-1,632 mg/dL 06/24/2019 4:42 PM EDT [facility] Blood Venipuncture / Unknown 06/24/2019 12:54 PM EDT 06/24/2019 1:52 PM EDT Result Benedict Cortez MD LAB BLOOD ORDERABLES Final Resul t Performing Organization Address [facility] de Phone Number [facility] [address] [place] [address] * Immunoglobulin A (06/24/2019 12:54 PM EDT) Immunoglobulin A 372 68 - 408 mg/dL 06/24/2019 4:42 PM EDT [facility] Blood Venipuncture / Unknown 06/24/2019 12:54 PM EDT 06/24/2019 1:52 PM EDT us Kenya Cortze MD LAB BLOOD ORDERABLES Final Resul t Performing Organization Address City/[facility] [address]/[facility] Co de Phone Number [facility] 20 [place] [address], [facility] [phone] documented in this encounter Visit Diagnoses Diagnosis Acquired polyneuropathy- Primary Unspecified hereditary and idiopathic peripheral neuropathy Neuropathy (HC Code) Mononeuritis of unspecified site documented in this encounter Care Teams Medical Staffing Coordinator Relationship Specialty Start Date End Date Jace Blake DO [address] [place] [address] PCP - General Family Medicine 08/01/14 documented as of this encounter
--- OUTSIDE RECORDS SUMMARY | 2025-04-03 12:01 | XMS_ITS | Encounter Summary ---
Author Organization [facility] Address [address] [place] [address] Care Team Providers Care Disability Representative Name Role Phone Jace Blake MD Primary Care Provider [phone] Provider, Rachid GARCIA Unavailable Unavaila Andres Topete MD Unavailable Aki Ross MD Unavailable [phone] Ursula Boo MD Unavailable Rocio Youssef PA-C Unavailable Emeterio Valencia MD Unavailable Diana Coppola MD Unavailable Encounter Details Date Type Department Care Team (Late st Contact Info) Description 02/24/2020 Scanned Document GENERIC EXTERNAL DATA DEPARTMENT Provider, External, [address] [place] [address] Social History Tobacco Use Types Packs/Day Years [...] [facility] [place] [address] [phone] Aki Ross MD [address] [place] [address] 05/11/2025 1:40 PM EDT Office Visit [facility] Derm[facility]ology [place] 35 [place] [address] Nico Bailey MD [address] [place] [address] documented as of this encounter Visit Diagnoses Not on filedocumented in this encounter Additional Health Concerns Infection Onset Date Last Indicated Resolved Time R/O Gastrointestinal Infection 03/22/2025 03/22/2025 03/23/2025 10:28 PM EDT documented as of this encounter Care Teams Disability Representative Relationship Specialty Start Date End Date Jace Blake MD [address] [place] [address] PCP - General Psychiatry, General 05/04/17 ProviderRachid MD 04/27/17 Andres Lakhani MD [address] [place] [address] Airways Operations Specialist Cardiology 07/08/19 Aki Ross MD [address] [place] [address] Primary Airways Operations Specialist Cardiovascular Disease 07/08/19 Ursula Boo MD [address] [place] [address] Gastroenterology 06/07/20 Rocio Youssef PA-C [address] [place] [address] Physician Statistical Machine Servicer Gastroenterology 06/07/20 Emeterio Valencia MD [address] [place] [address] Clinician Pulmonary Medicine 06/20/20 Diana Coppola MD [address] [address] Internal Medicine 03/22/25 documented as of this encounter
--- OUTSIDE RECORDS SUMMARY | 2025-04-03 12:01 | XMS_ITS | Encounter Summary ---
Author Organization [facility] Address [address] [place] [address] Care Team Providers Care Multicultural Services Librarian Name Role Phone Jace Blake MD Primary Care Provider [phone] Provider, Rachid GARCIA Unavailable Unavaila Andres Topete MD Unavailable [phone] Aki Ross MD Unavailable [phone] Ursula Boo MD Unavailable [phone] Rocio Youssef PA-C Unavailable Emeterio Valencia MD Unavailable Diana Coppola MD Unavailable Encounter Details Date Type Department Care Team (Late st Contact Info) Description 06/20/2020 Scanned Document [facility] [address] [place] [address] Ursula Boo MD [address] [place] [phone] Social History Tobacco Use Types Packs/Day [...] [facility] [place] 45 [facility] 102 [place] [phone] Aki Ross MD [address] [place] [address] 102 [place] [address] 05/11/2025 1:40 PM EDT Office Visit [facility] D[facility]ology [place] 35 [place] [address] Nico Bailey MD [address] [place] [address] documented as of this encounter Visit Diagnoses Not on filedocumented in this encounter Additional Health Concerns Infection Onset Date Last Indicated Resolved Time R/O Gastrointestinal Infection 03/22/2025 03/22/2025 03/23/2025 10:28 PM EDT documented as of this encounter Care Teams Multicultural Services Librarian Relationship Specialty Start Date End Date Jace Blake MD [address] [place] [address] PCP - General Psychiatry, General 05/04/17 ProviderRachid MD 04/27/17 Andres Lakhani MD 1682 [place] [address] Fuel Cell Engineer Cardiology 07/08/19 Aki Ross MD [address] [address] Primary Fuel Cell Engineer Cardiovascular Disease 07/08/19 Ursula Boo MD [address] [address] Gastroenterology 06/07/20 Rocio Youssef PA-C [address] [address] Physician Duct Cleaner Gastroenterology 06/07/20 Emeterio Valencia MD [address] [address] Clinician Pulmonary Medicine 06/20/20 Diana Coppola MD [address] [address] Internal Medicine 03/22/25 documented as of this encounter
--- OUTSIDE RECORDS SUMMARY | 2025-04-03 12:01 | XMS_ITS | Encounter Summary ---
Author Organization [facility] Address [address] [place] [address] Care Team Providers Care Land Leasing Information Clerk Name Role Phone Jace Blake MD Primary Care Provider Provider, Rachid GARCIA Unavailable Unavaila Andres Topete MD Unavailable [phone] Aki Ross MD Unavailable [phone] Ursula Boo MD Unavailable [phone] Rocio Youssef PA-C Unavailable [phone] Emeterio Valencia MD Unavailable Diana Coppola MD Unavailable Encounter Details Date Type Department Care Team (Late st Contact Info) Description 08/09/2020 Scanned Document [facility] [address] [place] [address] Ursula Boo MD [address] [place] [phone] Social History Tobacco Use Types Packs/Day [...] [facility] [place] 45 [facility] 102 [place] [phone] Aki Ross MD [address] [place] [address] 102 [place] [address] 05/11/2025 1:40 PM EDT Office Visit [facility] Dermatology [place] 35 [place] [address] Nico Bailey MD [address] [place] [address] documented as of this encounter Visit Diagnoses Not on filedocumented in this encounter Additional Health Concerns Infection Onset Date Last Indicated Resolved Time R/O Gastrointestinal Infection 03/22/2025 03/22/2025 03/23/2025 10:28 PM EDT documented as of this encounter Care Teams Land Leasing Information Clerk Relationship Specialty Start Date End Date Jace Blake MD [address]8 [place] [address] PCP - General Psychiatry, General 05/04/17 ProviderRachid MD 04/27/17 [place] [address] [place] [address] Washtub Worker Helper Cardiology 07/08/19 Aki Ross MD [address] [address] Primary Washtub Worker Helper Cardiovascular Disease 07/08/19 Ursula Boo MD [address] [address] Gastroenterology 06/07/20 Rocio Youssef PA-C [address] [address] Physician Child And Family Services Specialist Gastroenterology 06/07/20 Emeterio Valencia MD [address] [address] Clinician Pulmonary Medicine 06/20/20 Diana Coppola MD [address] [address] Internal Medicine 03/22/25 documented as of this encounter
--- OUTSIDE RECORDS SUMMARY | 2025-04-03 12:01 | XMS_ITS | Encounter Summary ---
Author Organization Formerly [facility] Address [address] [place] [address] Care Team Providers Care Tuber Machine Operator Helper Name Role Phone Jace Blake MD Primary Care Provider Provider, Rachid GARCIA Unavailable Unavaila Andres Topete MD Unavailable [phone] Aki Ross MD Unavailable Ursula Boo MD Unavailable Rocio Youssef PA-C Unavailable Emeterio Valencia MD Unavailable Diana Coppola MD Unavailable Encounter Details Date Type Department Care Team (Late st Contact Info) Description 08/17/2020 Scanned Document [facility] [address] [place] [address] Eva Suazo MD [address] [place] [phone] Social History Tobacco Use Types Packs/Day [...] [facility] Vascular [place] 45 [facility] 102 [place] [phone] Aki Ross MD [address] [place] [address] 102 [place], [place] [phone] 05/11/2025 1:40 PM EDT Office Visit [facility] Dermatology [place] 35 [place] [address] Nico Bailey MD [address] [place] [address] documented as of this encounter Visit Diagnoses Not on filedocumented in this encounter Additional Health Concerns Infection Onset Date Last Indicated Resolved Time R/O Gastrointestinal Infection 03/22/2025 03/22/2025 03/23/2025 10:28 PM EDT documented as of this encounter Care Teams Tuber Machine Operator Helper Relationship Specialty Start Date End Date Jace Blake MD [facility]8 [place] [address] PCP - General Psychiatry, General 05/04/17 ProviderRachid MD 04/27/17 Andres Lakhani MD [address] [place] [address] Repairer Auto Clocks Cardiology 07/08/19 Aki Ross MD [address] [address] Primary Repairer Auto Clocks Cardiovascular Disease 07/08/19 Ursula Boo MD [address] [address] Gastroenterology 06/07/20 Rocio Youssef PA-C [address] [place] [address] Physician Stock Speculator Gastroenterology 06/07/20 Emeterio Valencia MD [address] [address] Clinician Pulmonary Medicine 06/20/20 Diana Coppola MD [address] [address] Internal Medicine 03/22/25 documented as of this encounter
--- OUTSIDE RECORDS SUMMARY | 2025-04-03 12:01 | XMS_ITS | Encounter Summary ---
Author Organization [facility] Address [address] [place] [phone] Care Team Providers Care Skin Lap Bonder Name Role Phone Miguel Angel Blakey Primary Care Provider [phone] Encounter Details Date Type Department Care Team (Late st Contact Info) Description 06/09/2019 Scanned Document Neurosurgery at [address] [place] [address] Narda Candelaria PA [address] [place] [phone] Social History Tobacco Use Types Packs/Day Years [...] EDT Follow Up Neuromuscular Medicine at [address] [address] Silvestre Maldonado MD [address] [place] [phone] 07/19/2025 12:20 PM EDT Follow Up Congestive Heart Failure Program at [address] [facility] [address] [place] [address] Diana Coppola MD 800 [place] [address] 10/05/2025 12:30 PM EST Appointment [facility] - [address] [address] Aparna Chang MD [address] [place] [phone] [place], Pft Walk 10/05/2025 1:00 PM EST Appointment [facility] - [address] [place] [address] Aparna Chang MD [address] [place] [phone] 1, Pft Procedure Room 10/05/2025 2:00 PM EST Office Visit [facility] [address] [phone] Aparna Chang MD [address] [place] [phone] documented as of this encounter Visit Diagnoses Not on filedocumented in this encounter Care Teams Skin Lap Bonder Relationship Specialty Start Date End Date Jace Blake DO [address] [place] [address] PCP - General Family Medicine 08/01/14 documented as of this encounter
--- OUTSIDE RECORDS SUMMARY | 2025-04-03 12:01 | XMS_ITS ---
Author Organization [facility] Address [address] [place] [address] Care Team Providers Care Process Control Programmer Name Role Phone Jace Blake MD Primary Care Provider [phone] Provider, Conversion Unavailable Unavaila Andres Topete MD Unavailable [phone] Aki Ross MD Unavailable [phone] Ursula Boo MD Unavailable Rocio Youssef PA-C Unavailable [phone] Emeterio Valencia MD Unavailable Diana Coppola [...] diastolic heart failure 04/16/2022 [facility]04/16[facility]2022[facility]ritable bowel syndrome 04/16/2022 Orthostatic hypotension 01/30/2022 [...] The patient's plan is to return [place] permanently and they hope to travel in February if her physical condition allows. We discussed issues concerning travel by plane or car. She will see her ring stamper at [facility] as soon as she can when she returns. In the interim if she has other issues she may call here to be seen prior to leaving. Chronic renal impairment, stage 3a 10/23/2021 Overview (04/16/2022): Last Assessment & Plan: Labile creatinine values. Continue to follow with primary care physicians. Interstitial lung disease 10/23/2021 Overview (04/16/2022): Last Assessment & Plan: Evaluated at [facility] and her interstitial lung disease was not [...] Pacemaker dependent. Medtronic device. Follows remotely through [facility]. Last Assessment & Plan: Dual-chamber Medtronic pacemaker. Routinely follows through [facility] ring stamper. Interrogated here with recent syncopal episode. Normal function. Occasional mode switching in atrial high rates without ventricular high rates, 1.4% mode switching.? Ventricular runs. No tracings of that available for my review. We will continue to monitor remotely for now through her up [facility] ring stamper. Dilated cardiomyopathy 10/23/2020 Overview (07/15/2021): Last Assessment & Plan: Some recent left ventricular dysfunction. Some consideration of repeat attempted coronary sinus lead for WAREHOUSE EXAMINER. This was unsuccessful in the past. She is to discuss and review this option with [facility] when she returns there late February of [...] & Plan: To follow-up rheumatology status up [place]. Apparently has lupus and Sjogren's syndrome. Autoimmune disorder 02/18/2019 Overview (04/16/2022): Last Assessment & Plan: Diagnoses has been uncertain. Has seen rheumatology of [place]. 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 No ischemia 2018 stress test. Cardiac MRI did not suggest ischemia at [facility]. No definite angina. Continue medical therapy and control of risk factors. See discussion concerning lipids. Coronary artery disease invo lving wrang[place] coronary artery of [place] heart with angina pectoris 03/01/2018 Overview (04/16/2022): [...] procedure S/P ablation of atrial fibrillation 04/30/2017 [facility] current use of anticoagulant therapy 0 04/30/2017 [...] will follow with vascular surgery up at [facility]. Last Assessment & Plan: Stable left carotid stenosis by recent ultrasound. No TIA or strokelike symptoms or acute findings on head CT. Continue long-term control of cardiovascular risk factors and follow with her other physicians. [facility] vascular Memory impairment 12/02/2015 Memory loss [...] up labs. Will get records from [facility] (Dr. Escalera at [facility] in [place], [place]). Last Assessment & Plan: GI evaluation [...] by the advanced heart failure program at [facility] when she returns up [place]. Added automatically from request for surgery [id number] Moderate by cath Nov: 66 mmHg peak systolic Last Assessment & Plan: Has been followed at the advanced heart failure program at [facility] and Dr. Coppola. 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 Is maintained on beta-blockers and anticoagulation [...]
--- OUTSIDE RECORDS SUMMARY | 2025-04-03 12:01 | XMS_ITS | Encounter Summary ---
Author Organization Former[facility] Address [address] [place] [address] Care Team Providers Care Information Lead Name Role Phone Jace Blake MD Primary Care Provider Provider, Rachid GARCIA Unavailable Unavaila Andres Topete MD Unavailable [phone] Aki Ross MD Unavailable [phone] Ursula Boo MD Unavailable Rocio Youssef PA-C Unavailable Emeterio Valencia MD Unavailable Diana Coppola MD Unavailable Encounter Details Date Type Department Care Team (Late st Contact Info) Description 06/20/2020 Scanned Document [facility] Heart & Vascular [place] [address] [place] [address] Provider, Tom, [address] [place] [address] Social History Tobacco Use Types Packs/Day Years [...] [facility] Heart & Vascular [place] 45 [facility] 102 [place] [phone] Aki Ross MD [address] [place] [address] 102 [place] [address] 05/11/2025 1:40 PM EDT Office Visit [facility] Dermatology [place] 35 [place] [address] Nico Bailey MD [address] [place] [address] documented as of this encounter Visit Diagnoses Not on filedocumented in this encounter Additional Health Concerns Infection Onset Date Last Indicated Resolved Time R/O Gastrointestinal Infection 03/22/2025 03/22/2025 03/23/2025 10:28 PM EDT documented as of this encounter Care Teams Information Lead Relationship Specialty Start Date End Date Jace Blake MD [address] [place] [address] PCP - General Psychiatry, General 05/04/17 ProviderRachid MD 04/27/17 Andres Lakhani MD [address] [place] [address] Family Practice Md Cardiology 07/08/19 Aki Ross MD [address] [address] Primary Family Practice Md Cardiovascular Disease 07/08/19 Ursula Boo MD [address] [address] Gastroenterology 06/07/20 Rocio Youssef PA-C [address] [facility] 4 [place] [address] Physician Draft Roller Picker Gastroenterology 06/07/20 Emeterio Valencia MD [address] [address] Clinician Pulmonary Medicine 06/20/20 Diana Coppola MD [address] [address] Internal Medicine 03/22/25 documented as of this encounter
--- OUTSIDE RECORDS SUMMARY | 2025-04-03 12:01 | XMS_ITS | Encounter Summary ---
Author Organization [facility] Address [address] [place] [address] Care Team Providers Care Refuse Laborer Name Role Phone Jace Blake MD Primary Care Provider Provider, Rachid GARCIA Unavailable Unavaila Andres Topete MD Unavailable [phone] Aki Ross MD Unavailable [phone] Ursula Boo MD Unavailable Rocio Youssef PA-C Unavailable Emeterio Valencia MD Unavailable Diana Coppola MD Unavailable Reason for Visit * Reason Comments Other Encounter Details Date Type Department Care Team ([facility] st Contact Info) Description 06/14/2020 Telephone [facility] Heart & Vascular [place] [address] [address] Aki Ross MD [address] [place] [address] Other Social History Tobacco Use Types [...] in the notes that are scanned into [employer] and patient reported this toRN also. Advised [...] she had an episode of syncope at [facility] a few weeks back and was [...] 10:59 AM EDT Pt called stating her Aviation Maintenance Instructor put her on Oxygen for during the day and she states that last night after she showered she felt a burning pressure in her chest. So she checked her HR with the reader and it was 40bpm. she's concerned because her pacer is set at 60 and she's unsure what she should do. Please Advise [phone] * Telephone Encounter - April Souza - 06/14/2020 9:51 AM EDT Pt called stating her Aviation Maintenance Instructor nut her on Oxygen for during the day and she states that last night after she showed she felt a burning pressure in her chest last night and she checked her HR with he reader and it was 40. she's concerned because her pacer is set at 60 and she's unsure what she should do. Please Advise [phone] documented in this encounter Plan of Treatment Upcoming Encounters Date Type Department Care Team (Late st Contact Info) Description 05/04/2025 10:00 AM EDT Office Visit [facility] Heart & Vascular [place] [address] [address] Aki Ross MD [address] [place] [address] 05/11/2025 1:40 PM EDT Office Visit [facility] Dermatology [place] 35 [place] [phone] Nico Bailey MD [address] [place] [address] documented as of this encounter Visit Diagnoses Not on filedocumented in this encounter Additional Health Concerns Infection Onset Date Last Indicated Resolved Time R/O Gastrointestinal Infection 03/22/2025 03/22/2025 03/23/2025 10:28 PM EDT documented as of this encounter Care Teams Refuse Laborer Relationship Specialty Start Date End Date Jace Blake MD [address] [place] [address] PCP - General Psychiatry, General 05/04/17 Rachid Robles MD 04/27/17 Andres Lakhani MD [address] [place] [address] [place] Cardiology 07/08/19 Aki Ross MD [address] [place] [address] Primary [place] Cardiovascular Disease 07/08/19 Ursula Boo MD [address] [place] [phone] Gastroenterology 06/07/20 Rocio Youssef PA-C [address] [facility] 4 [place] [address] Physician Cdl Company Flatbed Driver Gastroenterology 06/07/20 Emeterio Valencia MD [address] [place] [address] Clinician Pulmonary Medicine 06/20/20 Diana Coppola MD [address] [address] Internal Medicine 03/22/25 documented as of this encounter
--- OUTSIDE RECORDS SUMMARY | 2025-04-03 12:01 | XMS_ITS | Encounter Summary ---
Author Organization [facility] Address [address] [place] [address] Care Team Providers Care Water Trainer Name Role Phone Jace Blake MD Primary Care Provider [phone] Provider, Rachid GARCIA Unavailable Unavaila Andres Topete MD Unavailable Aki Ross MD Unavailable [phone] Ursula Boo MD Unavailable [phone] Rocio Youssef PA-C Unavailable Emeterio Valencia MD Unavailable Diana Coppola MD Unavailable Encounter Details Date Type Department Care Team (Late st Contact Info) Description 07/02/2017 Orders Only [facility] Heart & Vascular [place] [address] [address] Aki Ross MD [address] [place] [address] [address] [place] [address] Social History Tobacco Use Types [...] [facility] Heart & Vascular [place] [address] [place] [address] Aki Ross MD [address] [place] [address] 102 [place], [place] [phone] 05/11/2025 1:40 PM EDT Office Visit [facility] Dermatology [place] 35 [place] [address] Nico Bailey MD [address] [place] [phone] documented as of this encounter Procedures Procedure [...] see attached document for final result us Aki Ross MD [facility] ORDERABLES Edited Result - Final documented in this encounter Visit Diagnoses Not on filedocumented in this encounter Additional Health Concerns Infection Onset Date Last Indicated Resolved Time R/O Gastrointestinal Infection 03/22/2025 03/22/2025 03/23/2025 10:28 PM EDT documented as of this encounter Care Teams Water Trainer Relationship Specialty Start Date End Date Jace Blake MD [address] [place] [address] PCP - General Psychiatry, General 05/04/17 ProviderRachid MD 04/27/17 Andres Lakhani MD [address] [place] [address] Vocational Case Manager Cardiology 07/08/19 Aki Ross MD [address] [address] Primary Vocational Case Manager Cardiovascular Disease 07/08/19 Ursula Boo MD [address] [place] [address] Gastroenterology 06/07/20 Rocio Youssef PA-C [address] [address] Physician Photography Assistant Gastroenterology 06/07/20 [place] [address] [address] Clinician Pulmonary Medicine 06/20/20 Diana Coppola MD [address] [address] Internal Medicine 03/22/25 documented as of this encounter
--- OUTSIDE RECORDS SUMMARY | 2025-04-03 12:01 | XMS_ITS | Encounter Summary ---
Author Organization [facility] Address [address] [place] [address] Care Team Providers Care Rotating Equipment Specialist Name Role Phone Jace Blake MD Primary Care Provider Provider, Rachid GARCIA Unavailable Unavaila Andres Topete MD Unavailable [phone] Aki Ross MD Unavailable [phone] Ursula Boo MD Unavailable [phone] Rocio Youssef PA-C Unavailable Emeterio Valencia MD Unavailable Diana Coppola MD Unavailable Encounter Details Date Type Department Care Team (Late st Contact Info) Description 06/20/2020 Scanned Document [facility] Vascular [place] [address] [place] [address] Provider, Tom, [address] [place] [address] Social History Tobacco Use Types Packs/Day Years [...] [facility] [place] [address] [facility] 102 [place] [phone] Aki Ross MD [address] [place] [address] 102 [place] [address] 05/11/2025 1:40 PM EDT Office Visit [facility] Dermatology [place] 35 [place] [address] Nico Bailey MD [address] [place] [address] documented as of this encounter Visit Diagnoses Not on filedocumented in this encounter Additional Health Concerns Infection Onset Date Last Indicated Resolved Time R/O Gastrointestinal Infection 03/22/2025 03/22/2025 03/23/2025 10:28 PM EDT documented as of this encounter Care Teams Rotating Equipment Specialist Relationship Specialty Start Date End Date Jace Blake MD [address] [place] [address] PCP - General Psychiatry, General 05/04/17 ProviderRachid MD 04/27/17 Andres Lakhani MD [address] [place] [address] Bottle Capper Cardiology 07/08/19 Aki Ross MD [address] [address] Primary Bottle Capper Cardiovascular Disease 07/08/19 Ursula Boo MD [address] [address] Gastroenterology 06/07/20 Rocio Youssef PA-C 234A [facility] 4 [place] [address] Physician Circulation Director Gastroenterology 06/07/20 Emeterio Valencia MD [address] [address] Clinician Pulmonary Medicine 06/20/20 Diana Coppola MD [address] [address] Internal Medicine 03/22/25 documented as of this encounter
--- OUTSIDE RECORDS SUMMARY | 2025-04-03 12:01 | XMS_ITS | Encounter Summary ---
Author Organization [facility] Address [address] [place] [address] Care Team Providers Care Senior Front End Engineer Name Role Phone Jace Blake MD Primary Care Provider [phone] Provider, Rachid GARCIA Unavailable Unavaila Andres Topete MD Unavailable [phone] Aki Ross MD Unavailable [phone] Ursula Boo MD Unavailable [phone] Rocio Youssef PA-C Unavailable Emeterio Valencia MD Unavailable Diana Coppola MD Unavailable Encounter Details Date Type Department Care Team (Late st Contact Info) Description 10/09/2023 Scanned Document [facility] Heart & Vascular [place] [address] [place] [address] Provider, Tom, [address] [place] [address] Social History Tobacco Use Types Packs/Day Years [...] AM EDT Office Visit [facility] Heart & Vascular [place] [address] [phone] Aki Ross MD [address] [place] [address] 05/11/2025 1:40 PM EDT Office Visit [facility] Dermatology [place] 35 [place] [phone] Nico Bailey MD [address] [place] [address] documented as of this encounter Visit Diagnoses Not on filedocumented in this encounter Additional Health Concerns Infection Onset Date Last Indicated Resolved Time R/O Gastrointestinal Infection 03/22/2025 03/22/2025 03/23/2025 10:28 PM EDT documented as of this encounter Care Teams Senior Front End Engineer Relationship Specialty Start Date End Date Jace Blake MD [address] [place] [address] PCP - General Psychiatry, General 05/04/17 Provider, MD Rachid 04/27/17 Andres Lakhani MD [address] [place] [address] Body Component Engineer Cardiology 07/08/19 Aki Ross MD [address] [place] [address] Primary Body Component Engineer Cardiovascular Disease 07/08/19 Ursula Boo MD [address] [address] Gastroenterology 06/07/20 Rocio Youssef PA-C [address] [place] [address] Physician Payroll Master Gastroenterology 06/07/20 Emeterio Valencia MD [address] [place] [address] Clinician Pulmonary Medicine 06/20/20 Diana Coppola MD [address] [place] [address] Internal Medicine 03/22/25 documented as of this encounter
--- OUTSIDE RECORDS SUMMARY | 2025-04-03 12:01 | XMS_ITS | Clinical Summary ---
Author Organization [facility] Address [address] [place] [address] Care Team Providers Care Automotive Drivability Technician Name Role Phone Jace Blake MD Primary Care Provider Provider, Conversion Unavailable Unavaila Andres Topete MD Unavailable [phone] Aki Ross MD Unavailable [phone] Ursula Boo MD Unavailable [phone] Rocio Youssef PA-C Unavailable Emeterio Valencia MD [...] failure 04/16/2022 Overview (04/16/2022): Aki [facility] Irritable bowel syndrome 04/16/2022 Orthostatic hypotension [...] The patient[place] and they hope to travel in February if her physical condition allows. We discussed issues concerning travel by plane or car. She will see her senior education specialist at [place] as soon as she can when she returns. In the interim if she has other issues she may call here to be seen prior to leaving. Chronic renal impairment, stage 3a 10/23/2021 Overview (04/16/2022): Last Assessment & Plan: Labile creatinine values. Continue to follow with primary care physicians. Interstitial lung disease 10/23/2021 Overview (04/16/2022): Last Assessment & Plan: Evaluated at [place] and her interstitial lung disease was not [...] Pacemaker dependent. Medtronic device. Follows remotely through [facility]. Last Assessment & Plan: Dual-chamber Medtronic pacemaker. Routinely follows through [facility] senior education specialist. Interrogated here with recent syncopal episode. Normal function. Occasional mode switching in atrial high rates without ventricular high rates, 1.4% mode switching.? Ventricular runs. No tracings of that available for my review. We will continue to monitor remotely for now through her [facility] senior education specialist. Dilated cardiomyopathy 10/23/2020 Overview (07/15/2021): Last Assessment & Plan: Some recent left ventricular dysfunction. 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 This was unsuccessful in the past. She is to discuss and review this option with [facility] when she returns there late February of [...] & Plan: To [place]. Apparently has lupus and Sjogren's syndrome. Autoimmune disorder 02/18/2019 Overview (04/16/2022): Last Assessment & Plan: Diagnoses has been uncertain. Has seen rheumatology of [place]. 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 No ischemia 2018 stress test. Cardiac MRI did not suggest ischemia at [place]. No definite angina. Continue medical therapy and control of risk factors. See discussion concerning lipids. 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 Last Assessment & Plan: Stable left carotid stenosis by recent ultrasound. No TIA or strokelike symptoms or acute findings on head CT. Continue long-term control of cardiovascular risk factors and follow with her other physicians. [facility] vascular Memory impairment 12/02/2015 Memory [...] Will get records from Hem/Onc [facility] (Dr. Escalera at [facility] in [place], [place]). Last Assessment & Plan: GI evaluation [...] by the advanced heart failure program at [place] when [place] returns [place]. Added automatically from request for surgery [id number] Moderate by cath Nov: 66 mmHg peak systolic Last Assessment & Plan: Has been followed at the advanced heart failure program at [place] and Dr. Coppola. 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 [...] Type Department Care Team Description 03/28/[address] [place] [address] Ursula Boo MD 03/27/2025 Orders Only [facility] Urology [address] [phone] Ursula Boo MD 03/22/2025 1:30 PM EDT Office Visit [address] [place] [address] Ursula Boo MD Diarrhea, unspecified type (Primary Dx) 03/22/2025 Travel 03/07/2025 Refill [facility] [place] [address] [address] Aki Ross MD Medication Refill 01/20/[address] [phone] Ursula Boo MD 01/05/[address] [phone] Tl Mancera, AEROSPACE MEDICINE PHYSICIAN Gastroesophageal reflux disease from Last 3 Months Immunizations Immunization Administration [...] Visit [facility] [place] [address] [address] Aki Ross MD [address] [place] [address] 05/11/2025 1:40 PM EDT Office Visit [facility] Medical [facility] Dermatology [place] [address] [place] [phone] Nico Bailey MD [address] [place] [address] Health Maintenance Due Date Last Done Comments [...] this topic Medical Devices Implanted Type Area Motion Graphics Artist Device Identifier Shelf Expiration Date Model / Serial / Lot Medtronic 5076 Capsurefix Novus [id number] Implanted:05/2012 (Quantity not on file) Lead Medtronic 5076 CAPSUREFIX NOVUS / [id number] / Medtronic 5076 Capsurefix Novus [id number] Implanted:05/2012 (Quantity not on file) Lead Medtronic 5076 CAPSUREFIX NOVUS / [id number] / [id number] Pacemaker Cardiac 7.4mm 50.8x46.6mm [place] Xt Dr Palacios Surekraig - [id number] Implanted:Qty : 1 on 07/21/2023 by Nigel Moncada MD at [facility] Pacemaker Left: Chest Wall MEDTRONIC MINIMALLY INVASIVE T [id number] 12/06/2024 [id number] / [id number] / Explanted Type Area Motion Graphics Artist Device Identifier Shelf Expiration Date Model / Serial / Lot [id number] Pacemaker Cardiac 7.5mm 52.3x45.4mm Renetta Gonzalez Atr Vntr-04/29/2012 Implanted:05/2012 (Quantity not on file) Explanted:Qty: 1 on 07/21/2023 by Nigel Moncada MD Pacemaker MEDTRONIC MINIMALLY INVASIVE T [id number] / [id number] / Procedures Procedure Name Priority Date/Time Associated [...] AM EDT) us Ursula Boo MD HX [facility] PROCEDURES Final Resu lt * (ABNORMAL) Liver Fibrosis, FibroTest-Actitest (01/16/2025 2:02 PM EST) Fibrosis Score 0.25 [facility], Fibrosis Stage F0-F1 [facility], Fibrosis Interpretation SEE NOTE [facility], Comment: ?? no fibrosis Fibro Test Score [...] fibrosis) Necroinflammat Activity Score 0.02 [facility], Necroinflamma Activity Grade A0 [facility], Necroinflammat Interpretation SEE NOTE [facility], Comment: ?? no activity ActiTest Score (a) ?Metavir Score ??a>=0 and a<=0.17 : A0 (no activity) a>0.17 and a<=0.29 : A0-A1 (no activity) a>0.29 and a<=0.36 : A1 (minimal activity) a>0.36 and a<=0.52 : A1-A2 (minimal activity) a>0.52 and a<=0.60 : A2 (significant activity) a>0.60 and a<=0.62 : A2-A3 (significant activity) a>0.62 and a<=1.00 : A3 (severe activity) Ardzn-7-Eobrlujuubr in 220 106 - 279 mg/dL [facility] [employer]/ [facility], Haptoglobin 231(H) 43 - 212 mg/dL [employer] [facility], Apolipoprotein A1 146 101 - 198 mg/dL [facility] [employer]/ [facility], Bilirubin 0.6 0.2 - 1.2 mg/dL [facility] [employer]/ [facility], GGT 17 3 - 65 U/L [facility] [employer]/ [facility], ALT 10 6 - 29 U/L [facility] [employer]/ [facility], Reference ID [id number] [employer] [facility], Footnote SEE NOTE [employer] [facility], Comment: ?? The reliability of results is dependent on compliance with the preanalytical and analytical conditions recommended by [employer]. The tests have to be deferred for: [...] The performance characteristics have been determined by [employer] [facility]. It has not been cleared or approved by the U.S. Food and Drug Administration. Performance characteristics refer to the analytical performance of the test. [employer], [employer] the associated logo, [employer] and all associated [employer] gonzales are the registered trademarks of [employer] All third constitution party gonzales - (R) and (TM) - are the property of their respective owners. (C) [id number] [employer] Incorporated. All rights reserved. Blood 01/16/2025 2:02 PM EST 01/16/2025 2:02 PM EST Narrative [facility] - 01/20/2025 12:53 AM EST FASTING:NO FASTING: NO us Ursula Boo MD LAB BLOOD ORDERABLES Final R esult [facility] [employer], [address] [place] [address] * (ABNORMAL) Complete Blood Count, with Differential (01/16/2025 2:02 PM EST) White Blood Cell Count 12.2(H) 3.8 - 10.8 Thousand/ uL [facility] Red Blood Cell Count 5.19(H) 3.80 - 5.10 Million/u L [facility] Hemoglobin 13.7 11.7 - 15.5 g/dL [employer] [facility] Hematocrit 43.4 35.0 - 45.0 % [employer] [facility] MCV 83.6 80.0 - 100.0 fL [facility] MCH 26.4(L) 27.0 - 33.0 pg [facility] [employer] MCHC 31.6(L) 32.0 - 36.0 g/dL [facility] Comment: For adults, a slight decrease in the calculated MCHC value (in the range of 30 to 32 g/dL) is most likely not clinically significant; however, it should be interpreted with caution in correlation with other red cell parameters and the patient's clinical condition. RDW 14.5 11.0 - 15.0 % [facility] Platelet Count 274 140 - 400 Thousand/ uL [facility] MPV 12.3 7.5 - 12.5 fL [facility] Diagnostics [employer] Abs Neutrophils Auto 8,906(H) 1,500 - 7,800 cells/uL [facility] Abs Lymphocytes Auto 2,196 850 - 3,900 cells/uL [facility] [employer] Abs Monocytes Auto 573 200 - 950 cells/uL [facility] [employer] Abs Eosinophils Auto 439 15 - 500 cells/uL [facility] Abs Basophils Auto 85 0 - 200 cells/uL [facility] Neutrophils Auto 73 % [facility] [employer] Lymphocytes Auto 18.0 % [facility] [employer] Monocytes Auto 4.7 % [facility] Eosinophils Auto 3.6 % [facility] Basophils Auto 0.7 % [facility] Blood 01/16/2025 2:02 PM EST 01/16/2025 2:02 PM EST Narrative [facility] - 01/20/2025 12:53 AM EST FASTING:NO FASTING: NO us Ursula Boo MD LAB BLOOD ORDERABLES Final R esult [facility] [address] [place] [address] * Comprehensive Metabolic Panel (01/16/2025 2:02 PM EST) Glucose 108 65 - 139 mg/dL [facility] Comment: ? Non-fasting reference interval Blood Urea Nitrogen (BUN) 8 7 - 25 mg/dL [facility] Creatinine 0.90 0.60 - 1.00 mg/dL [facility] Creatinine w/ eGFR 66 > OR = 60 mL/min/1. 73m2 [facility] BUN/Creatinine Ratio SEE NOTE: (calc) [facility] Comment: ?? Not Reported: BUN and Creatinine are within ?? reference range. ? Sodium 138 135 - 146 mmol/L [facility] Potassium 3.8 3.5 - 5.3 mmol/L [facility] Chloride 101 98 - 110 mmol/L [facility] CO2 30 20 - 32 mmol/L [facility] Calcium 9.3 8.6 - 10.4 mg/dL [facility] Protein, Total 7.4 6.1 - 8.1 g/dL [facility] Albumin 4.0 3.6 - 5.1 g/dL [facility] Globulin 3.4 1.9 - 3.7 g/dL (calc) [facility] Albumin/Globuli n Ratio 1.2 1.0 - 2.5 (calc) [facility] Bilirubin, Total 0.7 0.2 - 1.2 mg/dL [facility] Alkaline Phosphatase 113 37 - 153 U/L [facility] Aspartate Aminotrans (AST) 17 10 - 35 U/L [facility] Alanine Aminotrans (ALT) 11 6 - 29 U/L [facility] Blood 01/16/2025 2:02 PM EST 01/16/2025 2:02 PM EST Narrative [facility] - 01/20/2025 12:53 AM EST FASTING:NO FASTING: NO us Ursula Boo MD LAB BLOOD ORDERABLES Final R esult [facility] [address] [place] [phone] * HEPATITIS C VIRUS (HCV) ANTIBODY (04/09/2023 2:02 PM EDT) Hepatitis C Antibody NON-REACT OBEY NON-REACT OBEY [facility] Hepatitis C Antibody (s/co) 0.15 <1.00 [facility] Comment: HCV antibody was non-reactive. There is no laboratory evidence of HCV infection. In most cases, no further action is required. However, if recent HCV exposure is suspected, a test for HCV RNA (test code 11401) is suggested. For additional information please refer to http://education.Upstart.Tujia/faq/YDC69h3 (This link is being provided for informational/ educational purposes only.) 04/09/2023 2:02 PM EDT 04/09/2023 2:12 PM EDT Narrative [facility] - 04/24/2023 9:00 AM EDT FASTING:YES FASTING: YES us Ursula Boo MD LAB BLOOD ORDERABLES Final R esult [facility] [employer] [facility] [address] [place] [phone] from Last 3 Months or Most Recently Relevant to Health Maintenance Insurance MEDICARE PART A & B [facility] MEDICARE PART A & B BLUE BREWSTER OUT OF STATE - PPO Advance Directives * Full Code (Latest Code Status on File) Date Activated Date Inactivated Comments 07/21/2023 9:00 AM Care Teams Automotive Drivability Technician Relationship Specialty Start Date End Date Jace Blake MD [address] [place] [address] PCP - General Psychiatry, General 05/04/17 Rachid Robles MD 04/27/17 Andres Lakhani MD [address] [place] [address] Rag Boiler Cardiology 07/08/19 Aki Ross MD [address] [place] [address] Primary Rag Boiler Cardiovascular Disease 07/08/19 Ursula Boo MD [address] [place] [address] Gastroenterology 06/07/20 Rocio Youssef PA-C [address] [address] Physician Director Automotive Gastroenterology 06/07/20 Emeterio Valencia MD [address] [place] [address] Clinician Pulmonary Medicine 06/20/20 Diana Coppola MD [address] [address] Internal Medicine 03/22/25
--- OUTSIDE RECORDS SUMMARY | 2025-04-03 12:02 | XMS_ITS | Encounter Summary ---
Author Organization [facility] Address [address] [place] [phone] Care Team Providers Care Slunk Skin Curer Name Role Phone BlakeJace Primary Care Provider [phone] Encounter Details Date Type Department Care Team (Late st Contact Info) Description 07/18/2015 Scanned Document Gastrointestinal Surgery at [address] [place] [address] [place] [address] Chino Cordova MD PhD [address] [place] [phone] Social History Tobacco Use Types Packs/Day Years [...] AM EDT Follow Up Neuromuscular Medicine at [address] [place] [address] [place] [address] Silvestre Maldonado MD [address] [place] [phone] 07/19/2025 12:20 PM EDT Follow Up Congestive Heart Failure Program at [address] [place] [address] Diana Coppola MD 800 [place] [address] 10/05/2025 12:30 PM EST Appointment PULMONARY FUNCTION LABORATORY - [address] [address] Aparna Chang MD [address] [place] [phone] Hallway, Pft Walk 10/05/2025 1:00 PM EST Appointment PULMONARY [facility]CTION LABORATORY - [address] [place] [address] Aparna Chang MD [address] [place] [phone] 1, Pft Procedure Room 10/05/2025 2:00 PM EST Office Visit [facility] [address] [phone] Aparna Chang MD [address] [place] [phone] documented as of this encounter Visit Diagnoses Not on filedocumented in this encounter Care Teams Slunk Skin Curer Relationship Specialty Start Date End Date Jace Blake DO [address] [place] [address] PCP - General Family Medicine 08/01/14 documented as of this encounter
--- OUTSIDE RECORDS SUMMARY | 2025-04-03 12:02 | XMS_ITS | Encounter Summary ---
Author Organization [facility] Address [address] [place] [phone] Care Team Providers Care Stone Fabricator Name Role Phone BlakeJace Primary Care Provider [phone] Encounter Details Date Type Department Care Team (Late st Contact Info) Description 09/18/2015 Scanned Document Gastrointestinal Surgery at [address] [place] [address] [place] [address] Chino Cordova MD PhD [address] [place] [phone] Social History Tobacco Use Types Packs/Day Years [...] AM EDT Follow Up Neuromuscular Medicine at [address] [place] [address] [place] [address] Silvestre Maldonado MD [address] [place] [phone] 07/19/2025 12:20 PM EDT Follow Up Congestive Heart Failure Program at [address] [place] [address] Diana Coppola MD 800 [place] [address] 10/05/2025 12:30 PM EST Appointment PULMONARY FUNCTION LABORATORY - [address] [address] Aparna Chang MD [address] [place] [phone] Hallway, Pft Walk 10/05/2025 1:00 PM EST Appointment PULMONARY FUNCTION LABORATORY - [address] [place] [address] Aparna Chang MD [address] [place] [phone] 1, Pft Procedure Room 10/05/2025 2:00 PM EST Office Visit [facility] [address] [phone] Aparna Chang MD [address] [place] [phone] documented as of this encounter Visit Diagnoses Not on filedocumented in this encounter Care Teams Stone Fabricator Relationship Specialty Start Date End Date Jace Blake DO [address] [place] [phone] PCP - General Family Medicine 08/01/14 documented as of this encounter
--- OUTSIDE RECORDS SUMMARY | 2025-04-03 12:02 | XMS_ITS | Encounter Summary ---
Author Organization [facility] Address [address] [place] [address] Care Team Providers Care Concrete Block Plant Supervisor Name Role Phone Jace Blake MD Primary Care Provider Provider, Rachid GARCIA Unavailable Unavaila Andres Topete MD Unavailable [phone] Aki Ross MD Unavailable [phone] Ursula Boo MD Unavailable Rocio Youssef PA-C Unavailable Emeterio Valencia MD Unavailable Diana Coppola MD Unavailable Encounter Details Date Type Department Care Team (Late st Contact Info) Description 06/12/2020 Scanned Document [facility] [place] [address] [place] [address] Provider, Tom, [address] [place] [address] Social History Tobacco Use Types Packs/Day Years [...] Description 05/04/2025 10:00 AM EDT Office Visit [facility] [place] [address] [place] [phone] Aki Ross MD [address] [place] [address] [address] [place] [address] 05/11/2025 1:40 PM EDT Office Visit [facility] Dermatology [place] [address] [place] [address] Nico Bailey MD [address] [place] [address] documented as of this encounter Visit Diagnoses Not on filedocumented in this encounter Additional Health Concerns Infection Onset Date Last Indicated Resolved Time R/O Gastrointestinal Infection 03/22/2025 03/22/2025 03/23/2025 10:28 PM EDT documented as of this encounter Care Teams Concrete Block Plant Supervisor Relationship Specialty Start Date End Date Jace Blake MD [address] [place] [address] PCP - General Psychiatry, General 05/04/17 ProviderRachid MD 04/27/17 Andres Lakhani MD [address] [place] [address] Gas Controller Cardiology 07/08/19 Aki Ross MD [address] [address] Primary Gas Controller Cardiovascular Disease 07/08/19 Ursula Boo MD [address] [address] Gastroenterology 06/07/20 Rocio Youssef PA-C [address] [facility] [address] [place] [address] Physician Maintenance Mechanic Technician Gastroenterology 06/07/20 Emeterio Valencia MD [address] [address] Clinician Pulmonary Medicine 06/20/20 Diana Coppola MD 800 [facility] [address] [place] [address] Internal Medicine 03/22/25 documented as of this encounter
--- OUTSIDE RECORDS SUMMARY | 2025-04-03 12:02 | XMS_ITS | Data Portability ---
Author Organization [facility] Adly, [facility] Address [address] [place] [address] Care Team Providers Care Integrated Circuit Ic Layout Designer Name Role Phone ROSIEGORGE Referring Provider TIMMY AGEE Referring Provider [phone] Assessment No assessment recorded. Plan of Treatment [...] ogist concer jorge this exam, please call [phone] . SIN MCNAIR MD DICTAT ING PHYSIC JOSHUA APPROV ING PHYSIC JOSHUA MCNAIR MD 2019 01:46 PM CW/ 0 01:41 PM Adan arias Copy to: JEOVANNY MONTGOMERY MD [id number] [facility] Scheduling Dept (Imaging) [address] [place] [address], [phone], 08/20/2023 23:04:51 11/26/19 21 11/26/2020 US, abdom [...] Thank you for trusti ng Radiol ogy [facility] with your referr al. If you are a Health Care Provid er and would like to speak with a Radiol ogist concer jorge this exam, please call [phone] . MARIA ELENA MARCUS ND, MD DICTAT ING PHYSIC JOSHUA APPROV ING PHYSIC JOSHUA MARIA ELENA MARCUS ND, MD 2020 09:27 AM 09:27 AM Adan arias Copy to: JEOVANNY MONTGOMERY MD MIGRATION.[id number] [facility] Scheduling Dept (Imaging) [address] [facility], [place], [address], 08/20/2023 23:04:51 12/12/19 21 12/10/2020 US, thyro id No observ ation record ed. [id number] [facility] Imaging All Locations, [place], [address], 11/04/2024 19:35:31 02/21/20 21 02/15/2021 US, leif [...] al. If you are a Health Care [facility] er and like to speak with a Radiol ogist concer jorge this exam, please call . KEATON Eason MD DICTAT ING PHYSIC JOSHUA APPROV ING PHYSIC JOSHUA COLBY GALINDO MD 2020 01:48 PM CHG/ 21 04:28 PM Adan sy Copy to: [id number] [facility] Scheduling Dept (Imaging) [address] [place] [address], [phone], 08/20/2023 23:04:51 Result Notes None recorded. Problems Name Problem SNOMED Code Status Onset Date Resolution Date Notes Provider Name and Address Organization Details Recorded Time Iron deficiency anemia 62291128 Active 2014 Violeta pino [facility], [facility] 9 08:42:01 Chronic diastolic heart failure 240687330 Active 2013 [facility] 9 08:42:01 Hypertensi ve disorder 99485480 Active 2014 [facility] 9 08:42:01 Left carotid artery stenosis 3940723264276 03 Active 2015 [facility] 9 08:42:01 Cardiac arrhythmia 548564894 Active 2014 [facility], [facility] 9 08:42:01 Pulmonary hypertensi on 80424806 Active 2013 Violeta pino [facility], [facility] 9 08:42:01 Coronary arterioscl erosis in navajo artery 5778720799551 Active 2017 Violeta pino [facility], [facility] 9 08:42:01 Neuropathy 274146737 Active [address] [facility] 9 08:42:01 Thyroid nodule 471645344 Active 2013 V[facility]ta p[facility], [facility] 9 08:42:01 Memory impairment 565902249 Active 2015 Violeta pino [facility], [facility] 9 08:42:01 Atrial fibrillati on 15216594 Active 2013 Violeta pino [facility] Physician [facility], [facility] 9 08:42:02 Long-term current use of anticoagul ant 533402109 Active 2016 Violeta pino [facility] Physician [facility], [facility] 9 08:42:02 Irritable bowel syndrome with diarrhea 909183959 Active 2014 Violeta pino [facility], [facility] 9 08:42:02 Paraparesi s 5973537 Active 2017 [facility] 9 08:42:02 Computed tomography result abnormal 596761517 Active 2017 Violeta pino [facility], [facility] 9 08:42:02 Chronic atrial fibrillati on 938348923 Active 2016 Violeta pino [facility], [facility] 9 08:42:02 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 [facility] 9 08:42:02 Osteoarthr itis 414604056 Active 2018 [facility] 9 08:42:01 Spinal stenosis of lumbar region 22434293 Active 2018 Violeta pino [facility], [facility] 9 08:42:01 Idiopathic peripheral neuropathy 87729704 Active 2018 [facility] Phys[facility], [facility] 9 08:42:01 History of depression 646429363 Active 2018 Not Available [facility] 18:41:07 Insomnia 265990965 Active 2017 Not Available [facility] 18:41:07 Single coronary vessel disease 669437936 Active 2017 Not Available [facility] 18:41:07 Gastroesop hageal reflux disease 146501295 Active 2017 Not Available [facility] 1 18:41:07 Anemia 110248562 Active 2019 Not Available [facility] 1 18:41:07 Iron deficiency 39052674 Active 2017 Not Available [facility] 1 18:41:07 Congestive heart failure 89107814 Active 2018 35% EF Not Available [facility] 1 18:41:07 Cardiac pacemaker in situ 343403929 Active 2017 Not Available [facility] 1 18:41:07 Multiple nodules of lung 297054367 Active 2019 Not Available [facility] 1 18:41:07 Anxiety 50017253 Active 2017 Not Available [facility] 1 18:41:07 Hyperlipid emia 81495207 Active 2017 Not Available [facility] 1 18:41:08 Essential hypertensi on 53310310 Active 2018 Not Available [facility] 1 18:41:08 Cardiomyop athy 43869371 Active 2019 Not Available [facility] 1 18:41:08 Problem Notes None recorded. Procedures Surgical History Date Name Laterality Status Provider Name and Address Organization Details Recorded Time procedure on neck completed HUY MENDIOLA [facility] 01/13/2019 10:10:31 Appendectomy completed HUY MENDIOLA [facility] 01/13/2019 10:10:39 Tonsillectomy completed HUYTUSHAR MENDIOLA [facility], [facility] 01/13/2019 10:11:03 suture of rectum completed HUY MENDIOLA [facility] 01/13/2019 10:11:28 destruction of lesion completed HUY MENDIOLA [facility] 01/13/2019 10:12:07 Pacemaker implantation completed HUY MENDIOLA [facility] 01/13/2019 10:12:27 Hysterectomy completed Darlene Velasquez [facility] 02/07/2014 09:23:46 Back surgery completed Darlene Velasquez [facility], [facility] 02/07/2014 09:23:46 Knee surgery completed Violeta Rascon [facility], [facility] 12/06/2019 08:25:31 Other completed Darlene Velasquez [facility], [facility] 02/07/2014 09:23:46 Imaging Results Imaging Date Name Status LastModified by Organiz ation Details LastModified Time 12/10/2020 US, thyroid completed [id number] [facility] Imaging Services [facility] Imaging All Locations, [place], [address], 11/04/2024 19:35:31 02/15/2021 US, duplex, venous, extremity, limited completed [id number] [address] [facility] Scheduling Dept (Imaging) [address] [place] [address], [phone], 08/20/2023 23:04:51 11/06/2020 CT, orbit / sella / posterior fossa / ear, w/o contrast completed [id number] [address] [facility] Scheduling Dept (Imaging) [address] [place] [address], [phone], 08/20/2023 23:04:51 11/26/2020 US, abdomen, limited completed [id number] 300 [facility] Scheduling Dept (Imaging) [address] [place] [address], [phone], 08/20/2023 23:04:51 Procedure Notes None recorded. Medical Equipment None Reported. Allergies Allergen ID Allergen Name Allergen Category Reaction Reaction Severity Criticality Documentation Date Start Date Code Code System Note Provider Name and Address Organization Details Recorded Time 617620 Iodinated contrast media (substanc e) medicatio n Not available Not available Not available 02/07/2014 84507 2003 SNOMED HUY pino [facility] Physician [facility], [facility] 9 10:09:22 Medications Name Sig Start Date [...] % 86 /min 16 /min 97.9 [degF] 950891. 47 g 106 mm[Hg] 68 mm[Hg] Not Available [facility] 18:35:19 Date Recorded Body mass index (BMI) Body height Oxygen saturation Oxygen saturation in Arterial blood by Pulse oximetry Heart rate Respiratory rate Body temperature Body weight Systolic blood pressure Diastolic blood pressure Provider Name and Address Organization Details Last Updated DateTime 1 32.4 kg/m2 177.8 cm 99 % 99 % 88 /min 20 /min 98.4 [degF] 501467. 88 g 116 mm[Hg] 70 mm[Hg] Not Available [facility] 1 18:35:19 Date Recorded Body height Oxygen saturation Oxygen saturation in Arterial blood by Pulse oximetry Heart rate Respiratory rate Body temperature Systolic blood pressure Diastolic blood pressure Provider Name and Address Organization Details Last Updated DateTime 1 177.8 cm 99 % 99 % 68 /min 16 /min 97.8 [degF] 110 mm[Hg] 70 mm[Hg] Not Available [facility] 18:35:19 Date Recorded Body height Heart rate Respiratory rate Body temperature Systolic blood pressure Diastolic blood pressure Provider Name and Address Organization Details Last Updated DateTime 1 177.8 cm 120 /min 18 /min 98.4 [degF] 166 mm[Hg] 84 mm[Hg] Not Available [facility] 18:35:19 Social History Question Answer Notes LastModified by Organizat ion Details LastModified Time Tobacco Smoking Status Former Smoker KAPIL Maurer - [facility], [facility] 02/07/2014 09:23:45 Do You Have An Advance Directive? No [email or web address] Information not available 02/07/2014 How Much Tobacco Do You Chew? None [email or web address] Information not available 02/07/2014 Which Illicit Or Recreational Drugs Have You Used? No [email or web address] Information not available 02/07/2014 Education 4 Year College [email or web address] Information not available 02/07/2014 Alcohol Use 1-2 Per Week [email or web address] Informati on not available 02/07/2014 Year Quit Tobacco Use 04/23/2012 [email or web address] Information not available 02/07/2014 Marital Status [email or web address] Informat ion not available 02/07/2014 What Was The Date Of Your Most Recent Tobacco Screening? 02/01/2019 Information not available 06/17/2019 At What Age Did You Start Smoking Tobacco? 23 [email or web address] Information not available 02/07/2014 How Much Tobacco Do You Smoke? 1 PPD [email or web address] Information not available 02/07/2014 How Many Years Have You Smoked Tobacco? 40 Information not available 02/07/2014 Sex: Female Functional Status Question Answer Note LastModified by Organizat ion Details LastModified Time Do you or have you ever used smokeless tobacco? 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 Never used electronic cigarettes Information not available 11/01/2019 What is your exercise level? None [email or web address] Information not available 02/07/2014 Mental Status None [...] preservative 9 completed [facility], [facility] 10/27/2019 08:29:47 COVID-19, mRNA, LNP-S, PF, 100 mcg/0.5mL dose or 50 mcg/0.25mL dose 1 completed Not Available [facility] 10/18/2021 18:55:54 COVID-19, mRNA, LNP-S, PF, 100 mcg/0.5mL dose or 50 mcg/0.25mL dose 1 completed Not Available [facility] 10/18/2021 18:55:54 Influenza, split virus, quadrivalent, preservative 0 completed Not Available [facility] 10/18/2021 18:55:54 Pneumococcal conjugate PCV 13 0 completed Not Available [facility] 10/18/2021 18:55:54 Past Encounters Encounter ID Performer Location Encounter Start Date Encounter Closed Date Diagnosis/Indication Diagnosis SNOMED-CT Code Diagnosis ICD10 Code Diagnosis Note [id number] MD KIARA Silva [facility] [id number] [place] [address] 02/07/2014 08:48:09 02/07/2014 10:14:47 Hyperthyroidism 78620634 02/01/14 TSH <0.006 FT4 3.11 check thyroid scan , continue metoprolol 50 mg/day education provided, ? TMNG vs Graves Vs thyroiditi s pt clinically moldly hyperthyro id Multinodular goiter 889147937 01/23/14 thyroid US: MNG with right dominant lesion 1 cm ( radiologis t recommends FNA) pending scan will FNA the right lesion [id number] [facility] [address] [place] [address] 02/20/2014 09:21:33 02/20/2014 11:25:17 Hyperthyroidism 86542521 02/01/14 TSH <0.006 FT4 3.11 check thyroid scan , continue metoprolol 50 mg/day education provided, ? TMNG vs Graves Vs thyroiditi s pt clinically moldly hyperthyro id 02/09/14 thyroid scan: 4 hour 1.4% 24 hour 1.9% s/o thyroiditi s monitor the function, repeat labs in 3 weeks , continue metoprolol 50 mg /day [id number] Mychal Franco MD [facility] [address] [place] [address] 03/13/2014 09:13:30 03/13/2014 10:41:33 Hyperthyroidism 29127226 02/01/14 TSH <0.006 FT4 3.11 check thyroid [...] endo, pt understand s RTO when back [id number] Gorge Osei DO [facility] [address] [place] [address] 01/13/2019 09:32:41 01/13/2019 14:12:23 Anti-nuclear factor detected 513649145 R76.8 and DS DNA + Osteoarthritis 778134864 M19.90 Idiopathic peripheral neuropathy 84423099 G60.9 Spinal chuck nosis of lumbar region 96123631 M48.244 [id number] Gorge Osei DO [address] [address] 02/01/2019 08:37:35 02/01/2019 09:57:36 Idiopathic peripheral neuropathy 82200106 G60.9 Spinal chuck nosis of lumbar region 45795906 M48.061 Osteoarthritis 996067187 M19.90 Anti-nucle ar factor detected 414142096 R76.8 and DS DNA + As well as some cardiolipi n antibodies IgA and IgM Raised ant inuclear antibody 453529879 R76.0 [id number] Ben Alberto MD [address] [address] 10/27/2019 07:55:59 10/27/2019 09:47:34 Hyperparathyroidism 33972479 E21.3 Laboratory evaluation reviewed and discussed with the patient.No rmal calcium metabolism discussed with the patient including the role of PTH and vitamin DDifferent ial diagnosis discussed with the patient.Co unseled on appropriat e work upLabs ordered as below.Foll ow up with results. [id number] Ben Alberto MD [address] [address] 11/01/2019 08:35:27 11/01/2019 09:29:30 Primary hyperparathyroidism 78321648 E21.0 Has picture of mixed hyperparat hyroidism. [...] option depending on patient's preference Secondary hyperparathyroidism 61077806 E21.1 Has vitamin D deficiency Recommend to replenish vitamin D stores.At this point start Drisdol once a weekRisk factors of vitamin D deficiency discussed. Vitamin D deficiency 347 01182 E55.9 Will replace please see above. Hypophosphatemia 8981615 E83.39 Please see above. [id number] RosamariaMARIS Fletcher [facility] [address] [place] [address] 12/06/2019 08:17:33 12/06/2019 09:04:56 Hyperparathyroidism 01972151 E21.3 [facility] refer to [facility] for parathyroi dectomy Hypercalcemia 22698524 E 83.52 Will refer to [facility] for parathyroi dectomy Thyroid nodule 492440741 E04.1 Will monitor with ultrasound annually. [id number] Jeovanny Ramírez MD [facility] [address] [place] [address] 10/06/2018 00:00:00 02/06/2019 15:54:54 [id number] Jeovanny Ramírez MD [facility] [address] [place] [address] 12/20/2018 00:00:00 02/06/2019 16:01:43 [id number] Jeovanny Ramírez MD [facility] [address] [place] [address] 09/27/2019 00:00:00 09/27/2019 23:26:03 [id number] Jeovanny Ramírez MD [facility] [address] [place] [address] 12/06/2019 00:00:00 12/25/2019 18:18:38 [id number] Jeovanny Ramírez MD [facility] [address] [place] [address] 03/16/2020 00:00:00 03/16/2020 12:21:43 [id number] Jeovanny Ramírez MD Nicole [address] [place] [address] 10/25/2020 00:00:00 10/25/2020 22:52:20 [id number] Jeovanny Ramírez MD [facility] [address] [place] [address] 12/11/2020 00:00:00 12/30/2020 10:08:18 [id number] Jeovanny Ramírez MD [facility] [address] [place] [address] 02/15/2021 00:00:00 02/23/2021 09:49:04 [id number] Jeovanny Ramírez MD [facility] [address] [facility] [address] 09/03/2021 00:00:00 09/03/2021 23:26:37 Health Concerns Section Related Observation LastModified by Organization Detai ls LastModified Time None Recorded Concern Status LastModified by Organization Details LastModified Time None Recorded Advance Directives Directive N: Payers Insurance Date Sequence Insurance Name Policy Number Policy Fields Covered Member ID Fields Member ID Guarantor Name 03/10/2023 1 [place] Clarence Marrufo [id number] Kimberly Naylor 03/10/2023 2 [place] [facility] ([facility]) [id number] Kimberly Naylor [id number] Kimberly Naylor Notes Date Note Type [...] in exercise capacity;shortness of breath;fatigue Not Available [facility] 03/16/2020 12:21:43 0 text/html HyperlipidemiaReported bypatient.Type of hyperlipidemia:combined Control:not at goal Compliance:noncompliant with diet;does not exercise Complications:coronary artery disease;cardiovascular disease Risk Factors:hypertensionHypert ension IM/FMReported bypatient.Quality:here for check-up Severity:moderate Onset/Timing:gradual onset Context:exertion Alleviating Factors:relieved with rest; medication Self Care:under emotional stress;not watching diet;sedentaryNotes:ABNORM AL LFTs. Pt had a work up [place], its unclear what the reason for the elevated LFTs is. She also saw warp tension tester for pulmonary HTN, lung nodules. She is on Oxygen now. 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 She was told she has cardiomyopathy, pulmonary HTN Saw a sports teacher - no dx of autoimmune disease was made. 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 Will order more tests ANEMIA Had GI work up, which discovered polyps in the intestine. Very few records are avaiable for [place] Not Available [facility] 10/25/2020 22:52:20 1 text/html Medicare Annual Wellness [...] fall in the past year Not Available [facility] [employer] [facility] 12/30/2020 10:08:18 1 text/html EdemaReported bypatient.Location:RLE Quality:legs [...] Will xray and start Augmentin Not Available [place] [facility] [employer] 02/23/2021 09:49:04 1 text/html Abdominal PainReported bypatient.Location:LLQ; epigastric Quality:bloating;cramping; aching;burning Severity:moderate Duration:constant Onset/Timing:worse Aggravating Factors:movement; eating Alleviating Factors:nothing gives relief Associated Symptoms:no fever; no chills;nausea;vomiting;con stipation Previous Tests, Treatment and/or Diagnostic Procedures:noneNotes:Was seen in ER 2 days ago Not Available [facility] [employer] [facility], [facility] 09/03/2021 23:26:37 OBGyn Episode No OBEpisode recorded.
--- OUTSIDE RECORDS SUMMARY | 2025-04-03 12:02 | XMS_ITS | Encounter Summary ---
Author Organization [facility] Address [address] [place] [address] Care Team Providers Care Rn Delivery Name Role Phone BlakeJace Primary Care Provider [phone] Encounter Details Date Type Department Care Team (Late st Contact Info) Description 05/05/2016 Scanned Document Gastrointestinal Surgery at [address] [place] [address] [place] [address] Chino Cordova MD PhD [address] [place] [phone] Social History Tobacco Use Types Packs/Day Years [...] AM EDT Follow Up Neuromuscular Medicine at [address] [place] [address] [place] [address] Silvestre Maldonado MD [address] [place] [phone] 07/19/2025 12:20 PM EDT Follow Up Congestive Heart Failure Program at [address] [place] [address] Diana Coppola MD [address] [place] [address] 10/05/2025 12:30 PM EST Appointment [facility] - [address] [address] Aparna Chang MD [address] [place] [phone] [address], Pft Walk 10/05/2025 1:00 PM EST Appointment [facility] - [address] [place] [address] Aparna Chang MD [address] [place] [phone] 1, Pft Procedure Room 10/05/2025 2:00 PM EST Office Visit [facility] [address] [phone] Aparna Chang MD [address] [place] [phone] documented as of this encounter Visit Diagnoses Not on filedocumented in this encounter Care Teams Rn Delivery Relationship Specialty Start Date End Date Jace Blake DO [address] [place] [address] PCP - General Family Medicine 08/01/14 documented as of this encounter
--- OUTSIDE RECORDS SUMMARY | 2025-04-03 12:02 | XMS_ITS | Encounter Summary ---
Author Organization [facility] and [facility] Address [address] [place] [address] Care Team Providers Care An/Ssn 2 4 Operator Name Role Phone Miguel Angel Blakey Primary Care Provider [phone] Encounter Details Date Type Department Care Team (Late st Contact Info) Description 03/27/2017 Scanned Document Neurosurgery at [address] [place] [address] Narda Candelaria PA [address] [place] [phone] Social History Tobacco Use Types Packs/Day Years [...] Follow Up Neuromuscular Medicine at [address] [phone] Silvestre Maldonado MD [address] [place] [phone] 07/19/2025 12:20 PM EDT Follow Up Congestive Heart Failure Program at [address] [facility] [address] [place] [address] Diana Coppola MD 800 [place] [address] 10/05/2025 12:30 PM EST Appointment [facility] LAB[facility]AT[facility] - [address] [address] Aparna Chang MD [address] [place] [phone] Hallway, Pft Walk 10/05/2025 1:00 PM EST Appointment [facility]AT[facility] - [address] [place] [address] Aparna Chang MD [address] [place] [phone] 1, Pft Procedure Room 10/05/2025 2:00 PM EST Office Visit [facility] [address] [phone] Aparna Chang MD [address] [place] [phone] documented as of this encounter Visit Diagnoses Not on filedocumented in this encounter Care Teams An/Ssn 2 4 Operator Relationship Specialty Start Date End Date Jace Blake DO [address] [place] [address] PCP - General Family Medicine 08/01/14 documented as of this encounter
--- OUTSIDE RECORDS SUMMARY | 2025-04-03 12:02 | XMS_ITS | Encounter Summary ---
Author Organization [facility] and [facility] Address [address] [place] [phone] Care Team Providers Care Silk Screener Name Role Phone HaydenJace Primary Care Provider [phone] Encounter Details Date Type Department Care Team (Late st Contact Info) Description 05/11/2017 Scanned Document Neurosurgery at [address] [place] [address] Teodoro Hollingsworth MD [address] [place] [phone] Social History Tobacco Use Types Packs/Day [...] Follow Up Neuromuscular Medicine at [address] 438819 Silvestre Maldonado MD [address] [place] [phone] 07/19/2025 12:20 PM EDT Follow Up Congestive Heart Failure Program at 800 [facility] [address] [place] [address] Diana Coppola MD 800 [place] [address] 10/05/2025 12:30 PM EST Appointment P[facility] LAB[facility]AT[facility] - [address] [address] Aparna Chang MD [address] [place] [phone] Hallway, Pft Walk 10/05/2025 1:00 PM EST Appointment [facility]AT[facility] - [address] [place] [address] Aparna Chang MD [address] [place] [phone] 1, Pft Procedure Room 10/05/2025 2:00 PM EST Office Visit [facility] [address] [phone] Aparna Chang MD [address] [place] [phone] documented as of this encounter Visit Diagnoses Not on filedocumented in this encounter Care Teams Silk Screener Relationship Specialty Start Date End Date Jace Blake DO [address] [place] [address] PCP - General Family Medicine 08/01/14 documented as of this encounter
--- OUTSIDE RECORDS SUMMARY | 2025-04-03 12:02 | XMS_ITS | Encounter Summary ---
Author Organization [facility] and [facility] Address [address] [place] [address] Care Team Providers Care Freight Rate Analyst Name Role Phone Blake, Gary Primary Care Provider [phone] Encounter Details Date Type Department Care Team (Late st Contact Info) Description 08/01/2014 Scanned Document Electrophysiology & Cardiac Arrhythmia Program [address] [place] [address] Bernard Interiano MD [address] [place] [phone] Social History Tobacco Use Types Packs/Day [...] Follow Up Neuromuscular Medicine at [address] 945169 Silvestre Maldonado MD [address] [place] [phone] 07/19/2025 12:20 PM EDT Follow Up [facility] Congestive Heart Failure Program at 800 [facility] [address] [place] [address] Diana Coppola MD 800 [place] [address] 10/05/2025 12:30 PM EST Appointment P[facility] - [address] [address] Aparna Chang MD [address] [place] [phone] Hallway, Pft Walk 10/05/2025 1:00 PM EST Appointment P[facility]CTION LABORATORY - [address] [place] [address] Aparna Chang MD [address] [place] [phone] 1, Pft Procedure Room 10/05/2025 2:00 PM EST Office Visit [facility] [address] [phone] Aparna Chang MD [address] [place] [phone] documented as of this encounter Visit Diagnoses Not on filedocumented in this encounter Care Teams Freight Rate Analyst Relationship Specialty Start Date End Date Jace Blake DO [address] [place] [address] PCP - General Family Medicine 08/01/14 documented as of this encounter
--- OUTSIDE RECORDS SUMMARY | 2025-04-03 12:02 | XMS_ITS | Encounter Summary ---
Author Organization [facility] and [facility] Address [address] [place] [address] Care Team Providers Care Chip Loft Worker Name Role Phone HaydenJace Primary Care Provider [phone] Encounter Details Date Type Department Care Team (Late st Contact Info) Description 05/27/2017 Scanned Document Neurosurgery at [address] [place] [address] Teodoro Hollingsworth MD [address] [place] [phone] Social History Tobacco Use Types Packs/Day [...] EDT Follow Up Neuromuscular Medicine at [address] 637629 Silvestre Maldonado MD [address] [place] [phone] 07/19/2025 12:20 PM EDT Follow Up Congestive Heart Failure Program at 800 [facility] [address] [place] [address] Diana Coppola MD 800 [place] [address] 10/05/2025 12:30 PM EST Appointment [facility] - [address] [address] Aparna Chang MD [address] [place] [phone] Hallway, Pft Walk 10/05/2025 1:00 PM EST Appointment P[facility] - [address] [place] [address] Aparna Chang MD [address] [place] [phone] 1, Pft Procedure Room 10/05/2025 2:00 PM EST Office Visit [facility] [address] [phone] Aparna Chang MD [address] [place] [phone] documented as of this encounter Visit Diagnoses Not on filedocumented in this encounter Care Teams Chip Loft Worker Relationship Specialty Start Date End Date Jace Blake DO [address] [place] [address] PCP - General Family Medicine 08/01/14 documented as of this encounter
--- OUTSIDE RECORDS SUMMARY | 2025-04-03 12:02 | XMS_ITS | Encounter Summary ---
Author Organization [facility] and [facility] Address [address] [place] [address] Care Team Providers Care Material Handler 1St Shift Name Role Phone HaydenJace Primary Care Provider [phone] Encounter Details Date Type Department Care Team (Late st Contact Info) Description 05/04/2019 Transcribed Orders [facility] MOB [address] [place] [address] Jana Escalera MD [address] [place] [phone] Granulocytosis (Primary Dx) Social History Tobacco [...] Follow Up Neuromuscular Medicine at [address] [phone] Silvestre Maldonado MD [address] [place] [phone] 07/19/2025 12:20 PM EDT Follow Up Congestive Heart Failure Program at 800 [facility] [address] [place] [address] Diana Coppola MD 800 [facility] [place] [address] 10/05/2025 12:30 PM EST Appointment [facility] - [address] [address] Aparna Chang MD [address] [place] [phone] Hallway, Pft Walk 10/05/2025 1:00 PM EST Appointment [facility] - [address] [place] [address] Aparna Chang MD [address] [place] [phone] 1, Pft Procedure Room 10/05/2025 2:00 PM EST Office Visit [facility] [address] [phone] Aparna Chang MD [address] [place] [phone] documented as of this encounter Results [...] Risk factor for thrombosis Test Performed at: [facility] [address] [place], [place] ??[phone] Teodoro Shore M.D., Ph.D.,Director of Laboratories Blood Venipuncture / Unknown 05/04/2019 12:08 PM EDT 05/04/2019 12:13 PM EDT us Jana Escalera MD LAB BLOOD ORDERABLES Final Re sult [facility] * (ABNORMAL) Lupus anticoagulant (BH GH L LMW YH) (05/04/2019 12:08 PM EDT) LA1 Screening 83.9(H) 30.0 - 42.0 seconds 05/10/2019 11:30 AM EDT [facility] LA1 + Normal Plasma 40.9 30.0 - 42.0 seconds 05/10/2019 11:30 AM EDT [facility] LA2 Confirmation 51.7(H) 29.0 - 35.0 seconds 05/10/2019 11:30 AM EDT [facility] LA2 + Normal Plasma 36.4(H) 29.0 - 35.0 seconds 05/10/2019 11:30 AM EDT [facility] LA1/LA2 Ratio 1.12 0.90 - 1.30 05/10/2019 11:30 AM EDT [facility] LA Interpretation Elevated LA1 screening/LA2 confirmation result with almost complete correction on mixing studies. The findings are suggestive of possible factor deficiency versus oral anticoagulation therapy. Correlation with clinical findings is advised. Reviewed by Leonardo Wagner on 05.10.2019 11.09 05/10/2019 11:30 AM EDT [facility] Blood Venipuncture / Unknown 05/04/2019 12:08 PM EDT 05/04/2019 12:13 PM EDT Narrative [facility] - 05/10/2019 11:30 AM [...] MD LAB BLOOD ORDERABLES Final Re sult [facility] [address] [place] [address] * Cardiolipin Abs, IgA, IgG, IgM (BH GH LMW Q YH) (05/04/2019 12:08 PM EDT) Cardiolipin IgA <11 <=11 APL 9 4:12 AM EDT [facility] Comment: Cardiolipin Ab (IgA) Reference Range: Value ? Interpretation ? < or = 11 ? Negative 12 - 20 ? Indeterminate 21 - 80 ? Low to Medium Positive > 80 ?High Positive Cardiolipin IgG <14 <=14 GPL 9 4:12 AM EDT [facility] Comment: Cardiolipin Ab (IgG) Reference Range: Value ? Interpretation ? < or = 14 ? Negative 15 - 20 ? Indeterminate 21 - 80 ? Low to Medium Positive > 80 ?High Positive Cardiolipin IgM <12 <=12 MPL 05/06/201 9 4:12 AM EDT [facility] Comment: Cardiolipin Ab (IgM) Reference Range: Value [...] drug therapy or aging. Test Performed at: [facility] [address] [place], [place] ??[phone] Teodoro Shore M.D., Ph.D.,Director of Laboratories Blood Venipuncture / Unknown 05/04/2019 12:08 PM EDT 05/04/2019 12:13 PM EDT us Jana Escalera MD LAB BLOOD ORDERABLES Final Re sult [facility] * (ABNORMAL) Antiphospholipid antibody panel (GH LMW Q) (05/04/2019 12:08 PM EDT) Antiphospholipid Ab Panel Interpretation SEE BELOW 05/06/2019 4:27 AM EDT [facility] Comment: The antiphospholipid antibody syndrome (APS) is [...] <9 <=20 SGU 05/06 4:27 AM EDT [facility] B2-Glycoprotein IgA <9 <=20 LILLY 05/06 4:27 AM EDT [facility] B2-Glycoprotein IgM 32(H) <=20 SMU 05/06 4:27 AM EDT [facility] Phosphatidylserine Ab IgA <20 <20 U/mL 05/06/2019 4:27 AM EDT [facility] Comment: Phosphatidylserine (IgA) Reference range: ??<20 U/mL ??Negative 20-30 U/mL ??Equivocal - Found in small percentage ?of the healthy population; may be reactive ??>30 U/mL ??Positive - Risk factor for thrombosis Phosphatidylserine Ab IgG <10 <10 U/mL 05/06/2019 4:27 AM EDT [facility] Comment: Phosphatidylserine (IgG) Reference range: ??<10 U/mL ??Negative 10-20 U/mL ??Equivocal - Found in small percentage ?of the healthy population; may be reactive ??>20 U/mL ??Positive - Risk factor for thrombosis ?and loss. Phosphatidylserine Ab IgM <25 <25 U/mL 05/06/2019 4:27 AM EDT [facility] Comment: Phosphatidylserine (IgM) Reference range: ??<25 U/mL ??Negative 25-35 U/mL ??Equivocal - Found in small percentage ?of the healthy population; may be reactive ??>35 U/mL ??Positive - Risk factor for thrombosis Cardiolipin IgA <11 <=11 APL 9 4:27 AM EDT [facility] Comment: Cardiolipin Ab (IgA) Reference Range: Value ? Interpretation ? < or = 11 ? Negative 12 - 20 ? Indeterminate 21 - 80 ? Low to Medium Positive > 80 ?High Positive Cardiolipin IgG <14 <=14 GPL 9 4:27 AM EDT [facility] Comment: Cardiolipin Ab (IgG) Reference Range: Value ? Interpretation ? < or = 14 ? Negative 15 - 20 ? Indeterminate 21 - 80 ? Low to Medium Positive > 80 ?High Positive Cardiolipin IgM <12 <=12 MPL 9 4:27 AM EDT [facility] Comment: Cardiolipin Ab (IgM) Reference Range: Value ? Interpretation ? < or = 12 ? Negative 13 - 20 ? Indeterminate 21 - 80 ? Low to Medium Positive > 80 ?High Positive Test Performed at: [facility] [address] [place], [place] ??[phone] Teodoro Shore M.D., Ph.D.,Director of Laboratories Blood Venipuncture / Unknown 05/04/2019 12:08 PM EDT 05/04/2019 12:13 PM EDT us Jana Escalera MD LAB BLOOD ORDERABLES Final Re sult [facility] documented in this encounter Visit Diagnoses Diagnosis Granulocytosis- Primary Other elevated white blood cell count documented in this encounter Care Teams Material Handler 1St Shift Relationship Specialty Start Date End Date Jace Blake DO [address] [place] [address] PCP - General Family Medicine 08/01/14 documented as of this encounter
--- OUTSIDE RECORDS SUMMARY | 2025-04-03 12:02 | XMS_ITS | Encounter Summary ---
Author Organization [facility] and [facility] Address [address] [place] [phone] Care Team Providers Care Director Of Rehabilitation And Wellness Name Role Phone Blake, Gary Primary Care Provider Encounter Details Date Type Department Care Team (Late Contact Info) Description 09/22/2016 Scanned Document Gastrointestinal Cancers Program at [address] [address] Chino Cordova MD PhD [address] [place] [phone] Social History Tobacco Use Types Packs/Day Years [...] Follow Up Neuromuscular Medicine at [address] [address] Silvestre Maldonado MD [address] [place] [address], [place] [phone] 07/19/2025 12:20 PM EDT Follow Up Congestive Heart Failure Program at 800 [facility] [address] [place] [address] Diana Coppola MD 800 [place] [address] 10/05/2025 12:30 PM EST Appointment P[facility]CTION [facility] - [address] [address] Aparna Chang MD [address] [place] [phone] Hallway, Pft Walk 10/05/2025 1:00 PM EST Appointment P[facility] - [address] [place] [address] Aparna Chang MD [address] [place] [phone] 1, Pft Procedure Room 10/05/2025 2:00 PM EST Office Visit [facility] [address] [phone] Aparna Chang MD [address] [place] [phone] documented as of this encounter Visit Diagnoses Not on filedocumented in this encounter Care Teams Director Of Rehabilitation And Wellness Relationship Specialty Start Date End Date Jace Blake DO [address] [place] [address] PCP - General Family Medicine 08/01/14 documented as of this encounter
--- OUTSIDE RECORDS SUMMARY | 2025-04-03 12:02 | XMS_ITS | Encounter Summary ---
Author Organization [facility] Address [address] [place] [address] Care Team Providers Care Water Superintendent Name Role Phone Jace Blake MD Primary Care Provider Provider, Rachid GARCIA Unavailable Unavaila Andres Topete MD Unavailable [phone] Aki Ross MD Unavailable [phone] Ursula Boo MD Unavailable Rocio Youssef PA-C Unavailable Emeterio Valencia MD Unavailable Diana Coppola MD Unavailable Encounter Details Date Type Department Care Team (Late st Contact Info) Description 06/08/2020 Scanned Document [facility] [address] [place] [address] Ursula Boo MD [address] [place] [phone] Social History Tobacco Use Types Packs/Day [...] Description 05/04/2025 10:00 AM EDT Office Visit [facility] [place] [address] [facility] [address] [place] [phone] Aki Ross MD [address] [place] [address] [address] [place] [address] 05/11/2025 1:40 PM EDT Office Visit [facility] [place] [address] [place] [address] Nico Bailey MD [address] [place] [address] documented as of this encounter Visit Diagnoses Not on filedocumented in this encounter Additional Health Concerns Infection Onset Date Last Indicated Resolved Time R/O Gastrointestinal Infection 03/22/2025 03/22/2025 03/23/2025 10:28 PM EDT documented as of this encounter Care Teams Water Superintendent Relationship Specialty Start Date End Date Jace Blake MD [address] [place] [address] PCP - General Psychiatry, General 05/04/17 ProviderRachid MD 04/27/17 [place] [address] [place] [address] [facility] Cardiology 07/08/19 Aki Ross MD [address] [address] Primary Gift Packer Cardiovascular Disease 07/08/19 Ursula Boo MD [address] [address] Gastroenterology 06/07/20 Rocio Youssef PA-C [address], [place] [address] Physician Senior Occupational Therapist Gastroenterology 06/07/20 Emeterio Valencia MD [address] [address] Clinician Pulmonary Medicine 06/20/20 Diana Coppola MD [address] [address] Internal Medicine 03/22/25 documented as of this encounter
--- OUTSIDE RECORDS SUMMARY | 2025-04-03 12:02 | XMS_ITS | Encounter Summary ---
Author Organization [facility] and [facility] Address [address] [place] [address] Care Team Providers Care Design Architect Name Role Phone HaydenJace Primary Care Provider [phone] Encounter Details Date Type Department Care Team (Late st Contact Info) Description 07/19/2016 Abstract [facility] Neuro[facility] at [address] [place] [address] Teodoro Hollingsworth MD [address] [place] [phone] Social History Tobacco Use Types Packs/Day [...] Follow Up Neuromuscular Medicine at [address] 1425[address] Silvestre Maldonado MD [address] [place] [phone] 07/19/2025 12:20 PM EDT Follow Up [facility] Congestive Heart Failure Program at 800 [facility] [address] [place] [address] Diana Coppola MD 800 [place] [address] 10/05/2025 12:30 PM EST Appointment [facility]CTION LABORATORY - [address] [address] Aparna Chang MD [address] [place] [phone] Hallway, Pft Walk 10/05/2025 1:00 PM EST Appointment [facility] - [address] [place] [address] Aparna Chang MD [address] [place] [phone] 1, Pft Procedure Room 10/05/2025 2:00 PM EST Office Visit [facility] [address] [phone] Aparna Chang MD [address] [place] [phone] documented as of this encounter Visit Diagnoses Not on filedocumented in this encounter Care Teams Design Architect Relationship Specialty Start Date End Date Jace Blake DO [address] [place] [address] PCP - General Family Medicine 08/01/14 documented as of this encounter
--- OUTSIDE RECORDS SUMMARY | 2025-04-03 12:02 | XMS_ITS | Encounter Summary ---
Author Organization [facility] and [facility] Address [address] [place] [phone] Care Team Providers Care Environmental Monitoring Specialist Name Role Phone BlakeJace Primary Care Provider Encounter Details Date Type Department Care Team (Late st Contact Info) Description 08/04/2014 Scanned Document Gastrointestinal Surgery at [address] [place] [address] [place] [address] Chino Cordova MD PhD [address] [place] [phone] Social History Tobacco Use Types Packs/Day Years [...] AM EDT Follow Up Neuromuscular Medicine at [address] [place] [address] [place] [address] Silvestre Maldonado MD [address] [place] [phone] 07/19/2025 12:20 PM EDT Follow Up Congestive Heart Failure Program at [address] [place] [address] Diana Coppola MD 800 [place] [address] 10/05/2025 12:30 PM EST Appointment PULMONARY FUNCTION LABORATORY - [address] [address] Aparna Chang MD [address] [place] [phone] Hallway, Pft Walk 10/05/2025 1:00 PM EST Appointment PULMON[facility]CTION LABORATORY - [address] [place] [address] Aparna Chang MD [address] [place] [phone] 1, Pft Procedure Room 10/05/2025 2:00 PM EST Office Visit [facility] [address] [phone] Aparna Chang MD [address] [place] [phone] documented as of this encounter Visit Diagnoses Not on filedocumented in this encounter Care Teams Environmental Monitoring Specialist Relationship Specialty Start Date End Date Jace Blake DO [address] [place] [address] PCP - General Family Medicine 08/01/14 documented as of this encounter
--- OUTSIDE RECORDS SUMMARY | 2025-04-03 12:02 | XMS_ITS | Encounter Summary ---
Author Organization [facility] and [facility] Address [address] [place] [phone] Care Team Providers Care Broadcast Maintenance Engineer Name Role Phone Blake, Gary Primary Care Provider [phone] Encounter Details Date Type Department Care Team (Late st Contact Info) Description 06/12/2015 Scanned Document Gastrointestinal Surgery at [address] [place] [address] [place] [address] Chino Cordova MD PhD [address] [place] [phone] Social History Tobacco Use Types Packs/Day Years [...] AM EDT Follow Up Neuromuscular Medicine at [address] [place] [address] [place] [address] Silvestre Maldonado MD [address] [place] [phone] 07/19/2025 12:20 PM EDT Follow Up Congestive Heart Failure Program at [address] [place] [address] Diana Coppola MD 800 [place] [address] 10/05/2025 12:30 PM EST Appointment PULMONARY FUNCTION LABORATORY - [address] [address] Aparna Chang MD [address] [place] [phone] Hallway, Pft Walk 10/05/2025 1:00 PM EST Appointment PULMON[facility]CTION LABORATORY - [address] [place] [address] Aparna Chang MD [address] [place] [phone] 1, Pft Procedure Room 10/05/2025 2:00 PM EST Office Visit [facility] [address] [phone] Aparna Chang MD [address] [place] [phone] documented as of this encounter Visit Diagnoses Not on filedocumented in this encounter Care Teams Broadcast Maintenance Engineer Relationship Specialty Start Date End Date Jace Blake DO [address] [place] [phone] PCP - General Family Medicine 08/01/14 documented as of this encounter
--- OUTSIDE RECORDS SUMMARY | 2025-04-03 12:02 | XMS_ITS | Encounter Summary ---
Author Organization [facility] and [facility] Address [address] [place] [phone] Care Team Providers Care Letterset Press Set Up Operator Name Role Phone Blake, Gary Primary Care Provider [phone] Encounter Details Date Type Department Care Team (Late st Contact Info) Description 06/06/2015 Scanned Document Gastrointestinal Surgery at [address] [place] [address] [place] [address] Chino Codrova MD PhD [address] [place] [phone] Social History Tobacco Use Types Packs/Day Years [...] AM EDT Follow Up Neuromuscular Medicine at [address] [place] [address] [place] [address] Silvestre Maldonado MD [address] [place] [phone] 07/19/2025 12:20 PM EDT Follow Up Congestive Heart Failure Program at [address] [place] [address] Diana Coppola MD 800 [place] [address] 10/05/2025 12:30 PM EST Appointment P[facility]CTION LABORATORY - [address] [address] Aparna Chang MD [address] [place] [phone] Hallway, Pft Walk 10/05/2025 1:00 PM EST Appointment PULMONARY FUNCTION LABORATORY - [address] [place] [address] Aparna Chang MD [address] [place] [phone] 1, Pft Procedure Room 10/05/2025 2:00 PM EST Office Visit [facility] [address] [phone] Aparna Chang MD [address] [place] [phone] documented as of this encounter Visit Diagnoses Not on filedocumented in this encounter Care Teams Letterset Press Set Up Operator Relationship Specialty Start Date End Date Jace Blake DO [address] [place] [address] PCP - General Family Medicine 08/01/14 documented as of this encounter
--- OUTSIDE RECORDS SUMMARY | 2025-04-03 12:02 | XMS_ITS | Clinical Summary ---
Author Organization [address] Address [address] [place] [phone] Phone Care Team Providers Care Building Admin Name Role Phone Jace Blake DO Primary Care Provider [phone] Allergies No known active allergies Medications multivitamin [...] The patient's plan is to return up [place] permanently and they hope to travel in February if her physical condition allows. We discussed issues concerning travel by plane or car. She will see her vehicle body sander at [place] as soon as she can when she [...] plane or car. She will see her vehicle body sander at [place] as soon as she can when she returns. In the interim if she has other issues she may call here to be seen prior to leaving. Interstitial lung disease 10/23/2021 Overview (05/28/2023): Last Assessment & Plan: Evaluated at [place] and her interstitial lung disease was not felt to be significantly contributing to her dyspnea and other clinical conditions. Some follow-up CT scans and pulmonary function studies were recommended. Last Assessment & Plan: Evaluated at [place] and her interstitial lung disease was not [...] of repeat attempted coronary sinus lead for SENIOR HRIS ANALYST. This was unsuccessful in the past. She is to discuss and review this option with [facility] when she returns there late February of [...] (08/31/2020): Added automatically from request for surgery [id number] Abnormal liver function tests 08/30/2020 Overview (05/28/2023): [...] has been uncertain. Has seen rheumatology of [place]. Last Assessment & Plan: To follow-up rheumatology status up [place]. Apparently has lupus and Sjogren's syndrome. Last Assessment & Plan: Diagnoses has been uncertain. Has seen rheumatology of [place]. Benign essential hypertension 02/06/2019 Overview (05/28/2023): Last [...] Neuropathy 09/29/2018 Coronary artery disease invo lving [place] coronary artery of [place] heart with angina pectoris 03/01/2018 Overview (05/28/2023): Last Assessment & Plan: Dual-chamber Medtronic pacemaker. Routinely follows through [facility] vehicle body sander. Interrogated here with recent syncopal episode. Normal function. Occasional mode switching in atrial high rates without ventricular high rates, 1.4% mode switching.? Ventricular runs. No tracings of that available for my review. We will continue to monitor remotely for now through her up [facility] vehicle body sander. Last Assessment & Plan: Pacemaker dependent. Medtronic device. Follows remotely through [facility]. Last Assessment & Plan: Dual-chamber Medtronic pacemaker. Routinely follows through [facility] vehicle body sander. Interrogated here with recent syncopal episode. Normal function. Occasional mode switching in atrial high rates without ventricular high rates, 1.4% mode switching.? Ventricular runs. No tracings of that available for my review. We will continue to monitor remotely for now through her [facility] vehicle body sander. Last Assessment & Plan: Mild to moderate [...] Cardiac MRI did not suggest ischemia at [place]. No definite angina. Continue medical therapy and control of risk factors. See discussion concerning lipids. Last Assessment & Plan: Mild to moderate by cardiac catheterization 2015 and no ischemia by 2018 stress test. Cardiac MRI did not suggest ischemia more recently. No anginal type symptoms. Continue long-term control of cardiovascular risk factors. No aspirin. On Eliquis. Coronary arteriosclerosis in [place] artery 03/01 Cardiac pacemaker in situ 07/02/2017 S/P biventricular cardiac pacemaker procedure S/P ablation of atrial fibrillation 04/30/2017 alf current use of anticoagulant therapy 0 04/30/2017 [...] will follow with vascular surgery up at [place]. Last Assessment & Plan: Stable left carotid stenosis by recent ultrasound. No TIA or strokelike symptoms or acute findings on head CT. Continue long-term control of cardiovascular risk factors and follow with her other physicians. [facility] vascular [facility] vascular Memory loss 12/02/2015 Overview (05/28/2023): [...] up labs. Will get records from Hem/Onc [facility] (Dr. Escalera at [facility] in [place], [place]). Last Assessment & Plan: GI evaluation [...] Refill Congestive Heart Failure Program at 800 [facility] [address] [facility] 2nd [place] [address] Pao Steele APRN Medication Refill (Eliquis) 02/16/2025 9:00 AM EDT Ancillary Procedure EP [address] [address] Anand Gurrola APRN 02/16/2025 Orders Only EP [address] [address] Anand Gurrola APRN Encounter for interrogation of [...] AM EDT Follow Up Neuromuscular Medicine at [address] [place] [address] Silvestre Maldonado MD [address] [place] [phone] 07/19/2025 12:20 PM EDT Follow Up Congestive Heart Failure Program at [address] [place] [address] Diana Coppola MD [address] [place] [phone] 10/05/2025 12:30 PM EST Appointment P[facility]CTION LABORATORY - [address] [address] Aparna Chang MD [address] [place] [phone] Kiki, Pft Walk 10/05/2025 1:00 PM EST Appointment PUL[facility]CTION LABORATORY - [address] [address] Aparna Chang MD [address] [place] [phone] 1, Pft Procedure Room 10/05/2025 2:00 PM EST Office Visit [facility] [address] [phone] Aparna Chang MD [address] [place] [phone] Health Maintenance Due Date Last Done [...] this topic Medical Devices Implanted Type Area Auto Body Mechanic Device Identifier Shelf Expiration Date Model / Serial / Lot Graft, Briiifuse 1 Cm X 5cm - [id number] Implanted:Qty: 2 on 05/12/2017 by Teodoro Hollingsworth MD at [place] [address] Graft Lumbar: Spine Lumbar MEDTRONIC () 06/07/2018 [id number] / [id number] / Surgiflo Hemostatic Matrix Kit - [id number] Implanted:Qty: 1 on 05/12/2017 by Teodoro Hollingsworth MD at [place] [address] Other-impla nt Lumbar: Spine Lumbar 05/22/2018 [id number] / / Description:combined with 20 00 units of thrombin- given to surgical site by Ngozi Hale [facility] - [id number] Implanted:Qty: 1 on 05/12/2017 by Teodoro Hollingsworth MD at [place] [address] Other-impla nt Lumbar: Spine Lumbar MEDTRONIC () 01/13/2019 [id number] / [id number] / Surgiflo Hemostatic Matrix Kit - [id number] Implanted:Qty: 1 on 05/12/2017 by Teodoro Hollingsworth MD at [place] [address] Other-impla nt Left: Spine Lumbar 12/23/2018 [id number] / / Description:hemostatic matri x with 2000 units of thrombin. Peek Zeferino, 6.35 X 40mm - [id number] Implanted:Qty: 1 on 05/12/2017 by Teodoro Hollingsworth MD at [facility] [address] Zeferino Left: Spine Lumbar 10/01/2021 [id number] / / Description:Left L3-4 Peek Zeferino, 6.35 X 80mm - [id number] Implanted:Qty: 1 on 05/12/2017 by Teodoro Hollingsworth MD at [facility] [address] Zeferino Right: Spine Lumbar 07/28/2019 [id number] / / Description:Right L3-4, S1 Screw, Peek 6.5 X 50mm Legacy - [id number] Implanted:Qty: 4 on 05/12/2017 by Teodoro Hollingsworth MD at [place] [address] Screw Implant Lumbar: Spine Lumbar [id number] / / Screw, Peek 6.5 X 45mm Legacy - [id number] Implanted:Qty: 1 on 05/12/[address] [facility] [address] Screw Implant Lumbar: Spine Lumbar [id number] / / Set Screw - [id number] Implanted:Qty: 5 on 05/12/2017 by Teodoro Hollingsworth MD at [facility] [address] Screw Implant Lumbar: Spine Lumbar [id number] / / Pacemaker Procedures Procedure Name Priority Date/Time Associated Diagnosis Comments PACEMAKER INTERROGATION-REMOTE Routine 02/16/2025 8:58 AM EDT Encounter for interrogation of cardiac pacemaker BASIC METABOLIC PANEL Routine 01/03/2025 11:12 AM EST Chronic systolic heart failure (HC Code) CT CHEST WO IV CONTRAST HIGH RESOLUTION ([facility]) Routine 11/05/2024 1:16 PM EST ILD [...] 4:59 PM EST Note: Anand Gurrola - 1260-11-17O65:59:03.974Z - Presenting rhythm ApVp Battery voltage stable. Lead function (sensing/pacing thresholds/impedance) trends stable and within acceptable range. <0.1% AF, on Eliquis 100% RV paced Procedure Note Anand Gurrola APRN - 02/16/2025 Note: Anand Gurrola - 5211-21-69V45:59:03.974Z - Presenting rhythm ApVp Battery voltage stable. [...] Comment Performing Lab: ?Site ID: [id number] ?Name: [facility] ?Address: [address] [place] [phone] ?Director: Gosia Ness M.D. Diana Coppola MD LAB BLOOD ORDERABLES Final Resul t [facility] [address] [place] [address] * CT Chest wo IV Contrast High Resolution ([facility]) (11/05/2024 1:16 PM EST) Anatomical Region Laterality Modality Chest Computed Tomogra phy 11/07/2024 10:1 9 AM EST Impressions 11/07/2024 10:37 AM EST There has been an increase in the subpleural reticulation in the lower lungs. Bronchial wall thickening and peribronchial groundglass attenuation in right upper lobe and right middle lobe unchanged. [facility] Radiology Notify System Classification: Routine. Reported and signed by: Amelia Oneal MD [facility] Narrative 11/07/2024 10:[address] CHEST WO IV CONTRAST HIGH RESOLUTION ([facility]) ??Date: ??11/05/2024 1:16 PM INDICATION: Interstitial lung disease ILD. COMPARISON: CT CHEST WO IV CONTRAST HIGH RESOLUTION ([facility]) 2023-04-16 TECHNIQUE: Contiguous CT axial sections were [...] CT CHEST WO IV CONTRAST HIGH RESOLUTION ([facility]) Date:11/05/2024 1:16 PM INDICATION: Interstitial lung disease ILD. COMPARISON: CT CHEST WO IV CONTRAST HIGH RESOLUTION ([facility])2023-04-16 TECHNIQUE: Contiguous CT axial sections were [...] and right middle lobe unchanged. [facility] Radiology Notify System Classification: Routine. Reported and signed by: Amelia Oneal MD [facility] Aparna Chang MD IMG CT ORDERABLES Fi nal Result * Colonoscopy (07/16/2020 9:19 AM EDT) Colonoscopy [facility] Patient Name: Kimberly Naylor ?Procedure Date: 07/16/2020 9:19 AM ?Date of : 1950 Age: 69 ? Gender: Female Admit Type: Outpatient ?[facility] #: [id number] Note Status: Trichologist Override ?Attending MD: Ursula Boo , Procedure: [...] Procedure Code(s): ?? --- Professional --- ? 15343, Colonoscopy, flexible; with biopsy, single or ? multiple Diagnosis Code(s): ?? --- Professional --- ? D12.3, Benign neoplasm of transverse colon (hepatic ? flexure or splenic flexure) ? K62.1, Rectal polyp ? D12.5, Benign neoplasm of sigmoid colon ? D50.9, Iron deficiency anemia, unspecified CPT copyright 2018 [employer]. All rights reserved. The codes documented in this report are preliminary and upon panel assembler review may be revised to meet current [...] Recently Relevant to Health Maintenance Insurance MEDICARE [facility]ICARE [facility] Advance Directives * Full ACLS (Latest Code Status on File) Date Activated Date Inactivated Comments 05/15/2017 9:33 PM 05/18/2017 9:43 PM * Full ACLS Date Activated Date Inactivated Comments 05/12/2017 2:29 PM 05/14/2017 3:35 PM * Full Interventions Date Activated Date Inactivated Comments 08/07/2014 9:00 AM 08/09/2014 6:32 PM Care Teams Building Admin Relationship Specialty Start Date End Date Jace Blake DO [address] [place] [address] PCP - General Family Medicine 08/01/14
--- OUTSIDE RECORDS SUMMARY | 2025-04-03 12:02 | XMS_ITS | Encounter Summary ---
Author Organization [facility] and [facility] Address [address] [place] [phone] Care Team Providers Care Salesperson Surgical Appliances Name Role Phone Blake, Gary Primary Care Provider [phone] Encounter Details Date Type Department Care Team (Late Contact Info) Description 09/22/2016 Scanned Document Gastrointestinal Cancers Program at [address] [address] Chino Cordova MD PhD [address] [place] [phone] Social History Tobacco Use Types Packs/Day Years [...] EDT Follow Up Neuromuscular Medicine at [address] [address] Silvestre Maldonado MD [address] [place] [address], [place] [phone] 07/19/2025 12:20 PM EDT Follow Up Congestive Heart Failure Program at 800 [facility] [address] [place] [address] Diana Coppola MD 800 [place] [phone] 10/05/2025 12:30 PM EST Appointment PUL[facility]CTION LABORATORY - [address] [address] Aparna Chang MD [address] [place] [phone] Hallway, Pft Walk 10/05/2025 1:00 PM EST Appointment P[facility]CTION LAB[facility]ORY - [address] [place] [address] Aparna Chang MD [address] [place] [phone] 1, Pft Procedure Room 10/05/2025 2:00 PM EST Office Visit [facility] [address] [phone] Aparna Chang MD [address] [place] [phone] documented as of this encounter Visit Diagnoses Not on filedocumented in this encounter Care Teams Salesperson Surgical Appliances Relationship Specialty Start Date End Date Jace Blake DO [address] [place] [address] PCP - General Family Medicine 08/01/14 documented as of this encounter
--- OUTSIDE RECORDS SUMMARY | 2025-04-03 12:02 | XMS_ITS | Encounter Summary ---
Author Organization [facility] and [facility] Address [address] [place] [phone] Care Team Providers Care Granite Setter Name Role Phone Blake, Gary Primary Care Provider [phone] Encounter Details Date Type Department Care Team (Late Contact Info) Description 07/21/2018 Scanned Document Gastrointestinal Surgery at [address] [place] [address] [place] [address] Chino Cordova MD PhD [address] [place] [phone] Social History Tobacco Use Types Packs/Day Years [...] AM EDT Follow Up Neuromuscular Medicine at [address] [place] [address] [place] [address] Silvestre Maldonado MD [address] [place] [address] [place] [phone] 07/19/2025 12:20 PM EDT Follow Up Congestive Heart Failure Program at 800 [facility] [address] [place] [address] Diana Coppola MD 800 [place] [phone] 10/05/2025 12:30 PM EST Appointment PULMONARY FUNCTION LABORATORY - [address] [address] Aparna Chang MD [address] [place] [phone] Hallway, Pft Walk 10/05/2025 1:00 PM EST Appointment PULMONARY [facility]CTION LABORATORY - [address] [place] [address] Aparna Chang MD [address] [place] [phone] 1, Pft Procedure Room 10/05/2025 2:00 PM EST Office Visit [facility] [address] [phone] Aparna Chang MD [address] [place] [phone] documented as of this encounter Visit Diagnoses Not on filedocumented in this encounter Care Teams Granite Setter Relationship Specialty Start Date End Date Jace Blake DO [address] [place] [address] PCP - General Family Medicine 08/01/14 documented as of this encounter
--- OUTSIDE RECORDS SUMMARY | 2025-04-03 12:02 | XMS_ITS | Encounter Summary ---
Author Organization [facility] and [facility] Address [address] [place] [phone] Care Team Providers Care Plan Rep Name Role Phone HaydenJace Primary Care Provider [phone] Encounter Details Date Type Department Care Team (Late st Contact Info) Description 06/04/2017 Scanned Document Neurosurgery at [address] [place] [address] Teodoro Hollingsworth MD [address] [place] [phone] Social History Tobacco Use Types Packs/Day [...] EDT Follow Up Neuromuscular Medicine at [address] [address] Silvestre Maldonado MD [address] [place] [phone] 07/19/2025 12:20 PM EDT Follow Up Congestive Heart Failure Program at 800 [facility] [address] [place] [address] Diana Coppola MD 800 [place] [phone] 10/05/2025 12:30 PM EST Appointment PULMONARY FUNCTION LABORATORY - [address] [address] Aparna Chang MD [address] [place] [phone] Hallway, Pft Walk 10/05/2025 1:00 PM EST Appointment PULMONARY FUNCTION LABORATORY - [address] [place] [address] Aparna Chang MD [address] [place] [phone] 1, Pft Procedure Room 10/05/2025 2:00 PM EST Office Visit [facility] [address] [phone] Aparna Chang MD [address] [place] [phone] documented as of this encounter Visit Diagnoses Not on filedocumented in this encounter Care Teams Plan Rep Relationship Specialty Start Date End Date Jace Blake DO [address] [place] [address] PCP - General Family Medicine 08/01/14 documented as of this encounter
--- OUTSIDE RECORDS SUMMARY | 2025-04-03 12:02 | XMS_ITS | Continuity of Care Document ---
Author Organization [facility] Address [address] [place] [phone] Phone Care Team Providers Care Audio Visual Collections Coordinator Name Role Phone Cece OD OD, Gamal Unavailable Unavailable Allergies, Adverse Reactions, Alerts Substance Reaction Status Criticality No Known Allergies Active No Inform ation Advance Directives Directive Yes / No Effective Date File Name No Information Encounters Encounter Description Practice Location Reason(s) For Visit Diagnoses Date Provider Providers Copied on Encounter [facility] , [address] [place] [address], [id number], [place] tel:[phone] [facility] Noé Stephens Other secondary cataract, left eyeAge-related nuclear cataract, left eyeUnspecified blepharitis right upper eyelidConjunctival hemorrhage, left eyeAge-related nuclear cataract, right eyeAge-related nuclear cataract, bilateralOther secondary cataract, bilateralVitreous degeneration, bilateralOther secondary cataract, right eyeDry eye syndrome of bilateral lacrimal glandsPersonal history of other diseases of the nervous system and sense organsUnspecified blepharitis left upper eyelid Apr-0 1 [facility] Gamal. [address] [place], [place], [id number] , [place]. tel: [phone] [facility] , [address] [place] [address], [id number], [place] tel:[phone] No Location No Information Apr-2 [address] [place] [place] Gamal. [address] [place], [place], [id number] , [place]. tel:[phone] [facility] , [address] [place] [address], [id number], [place] tel:[phone] [facility] Noé Stephens Dry eye syndrome of bilateral lacrimal glandsVitreous degeneration, bilateral Feb-2 0 Cece MATHEW Gamal. [address] [place], [place], [id number] , [place]. tel:[phone] Family History Family Member Type Diagnosis Age [...]
--- OUTSIDE RECORDS SUMMARY | 2025-04-03 12:02 | XMS_ITS | Encounter Summary ---
Author Organization [facility] and [facility] Address [address] [place] [phone] Care Team Providers Care Rn Admission Name Role Phone HaydenJace Primary Care Provider [phone] Encounter Details Date Type Department Care Team (Late st Contact Info) Description 06/10/2017 Scanned Document Neurosurgery at [address] [place] [address] Teodoro Hollingsworth MD [address] [place] [phone] Social History Tobacco Use Types Packs/Day [...] EDT Follow Up Neuromuscular Medicine at [address] [phone] Silvestre Maldonado MD [address] [place] [phone] 07/19/2025 12:20 PM EDT Follow Up Congestive Heart Failure Program at 800 [facility] [address] [place] [address] Diana Coppola MD 800 [place] [address] 10/05/2025 12:30 PM EST Appointment PULMONARY FUNCTION LABORATORY - [address] [address] Aparna Chang MD [address] [place] [phone] Hallway, Pft Walk 10/05/2025 1:00 PM EST Appointment PULMONARY FUNCTION LABORATORY - [address] [place] [address] Aparna Chang MD [address] [place] [phone] 1, Pft Procedure Room 10/05/2025 2:00 PM EST Office Visit [facility] [address] [phone] Aparna Chang MD [address] [place] [phone] documented as of this encounter Visit Diagnoses Not on filedocumented in this encounter Care Teams Rn Admission Relationship Specialty Start Date End Date Jace Blake DO [address] [place] [phone] PCP - General Family Medicine 08/01/14 documented as of this encounter
--- OUTSIDE RECORDS SUMMARY | 2025-04-03 12:02 | XMS_ITS | Encounter Summary ---
Author Organization [facility] and [facility] Address [address] [place] [address] Care Team Providers Care Experienced Truck Driver Name Role Phone HaydenJace Primary Care Provider [phone] Encounter Details Date Type Department Care Team (Late st Contact Info) Description 05/11/2017 Scanned Document Neurosurgery at [address] [place] [address] Teodoro Hollingsworth MD [address] [place] [phone] Social History Tobacco Use Types Packs/Day [...] Follow Up Neuromuscular Medicine at [address] 1828[address] Silvestre Maldonado MD [address] [place] [phone] 07/19/2025 12:20 PM EDT Follow Up Congestive Heart Failure Program at 800 [facility] [address] [place] [address] Diana Coppola MD 800 [place] [address] 10/05/2025 12:30 PM EST Appointment [facility] - [address] [address] Aparna Chang MD [address] [place] [phone] Hallway, Pft Walk 10/05/2025 1:00 PM EST Appointment [facility] - [address] [place] [address] Aparna Chang MD [address] [place] [phone] 1, Pft Procedure Room 10/05/2025 2:00 PM EST Office Visit [facility] [address] [phone] Aparna Chang MD [address] [place] [phone] documented as of this encounter Visit Diagnoses Not on filedocumented in this encounter Care Teams Experienced Truck Driver Relationship Specialty Start Date End Date Jace Blake DO [address] [place] [address] PCP - General Family Medicine 08/01/14 documented as of this encounter
--- OUTSIDE RECORDS SUMMARY | 2025-04-03 12:02 | XMS_ITS | Encounter Summary ---
Author Organization [facility] and [facility] Address [address] [place] [phone] Care Team Providers Care Car Worker Helper Name Role Phone Blake, Gary Primary Care Provider [phone] Encounter Details Date Type Department Care Team (Late Contact Info) Description 09/22/2016 Scanned Document Gastrointestinal Cancers Program at [address] [address] Chino Cordova MD PhD [address] [place] [phone] Social History Tobacco Use Types Packs/Day Years [...] Follow Up Neuromuscular Medicine at [address] [address] Silvestre Maldonado MD [address] [place] [address], [place] [phone] 07/19/2025 12:20 PM EDT Follow Up Congestive Heart Failure Program at 800 [facility] [address] [place] [address] Diana Coppola MD 800 [place] [address] 10/05/2025 12:30 PM EST Appointment P[facility] - [address] [address] Aparna Chang MD [address] [place] [phone] Hallway, Pft Walk 10/05/2025 1:00 PM EST Appointment [facility] - [address] [place] [address] Aparna Chang MD [address] [place] [phone] 1, Pft Procedure Room 10/05/2025 2:00 PM EST Office Visit [facility] [address] [phone] Aparna Chang MD [address] [place] [phone] documented as of this encounter Visit Diagnoses Not on filedocumented in this encounter Care Teams Car Worker Helper Relationship Specialty Start Date End Date Jace Blake DO [address] [place] [address] PCP - General Family Medicine 08/01/14 documented as of this encounter
--- OUTSIDE RECORDS SUMMARY | 2025-04-03 12:02 | XMS_ITS | Encounter Summary ---
Author Organization [facility] and [facility] Address [address] [place] [address] Care Team Providers Care Tourist Information Assistant Name Role Phone Miguel Angel Blakey Primary Care Provider [phone] Encounter Details Date Type Department Care Team (Late st Contact Info) Description 04/24/2017 Scanned Document Neurosurgery at [address] [place] [address] Narda Candelaria PA [address] [place] [phone] Social History Tobacco Use Types Packs/Day Years [...] Follow Up Neuromuscular Medicine at [address] 131659 Silvestre Maldonado MD [address] [place] [phone] 07/19/2025 12:20 PM EDT Follow Up Congestive Heart Failure Program at 800 [facility] [address] [place] [address] Diana Coppola MD 800 [place] [address] 10/05/2025 12:30 PM EST Appointment P[facility] - [address] [address] Aparna Chang MD [address] [place] [phone] Hallway, Pft Walk 10/05/2025 1:00 PM EST Appointment [facility] - [address] [place] [address] Aparna Chang MD [address] [place] [phone] 1, Pft Procedure Room 10/05/2025 2:00 PM EST Office Visit [facility] [address] [phone] Aparna Chang MD [address] [place] [phone] documented as of this encounter Visit Diagnoses Not on filedocumented in this encounter Care Teams Tourist Information Assistant Relationship Specialty Start Date End Date Jace Blake DO [address] [place] [address] PCP - General Family Medicine 08/01/14 documented as of this encounter
--- OUTSIDE RECORDS SUMMARY | 2025-04-03 12:02 | XMS_ITS | Encounter Summary ---
Author Organization [facility] and [facility] Address [address] [place] [address] Care Team Providers Care Data Virtualization Consultant Name Role Phone HaydenJace Primary Care Provider [phone] Encounter Details Date Type Department Care Team (Latest Contact Info) Description 04/19/2019 Transcribed Orders [facility] [address] [place] [address] Aki Ross MD [address] [phone] Paroxysmal atrial fibrillation (Primary Dx) [...] EDT Follow Up Neuromuscular Medicine at [address] 7333[address] Silvestre Maldonado MD [address] [place] [address], [place] [phone] 07/19/2025 12:20 PM EDT Follow Up Congestive Heart Failure Program at 800 [facility] [address] [place] [address] Diana Coppola MD 800 [facility] [address] 10/05/2025 12:30 PM EST Appointment [facility] - [address] [address] Aparna Chang MD [address] [place] [phone] Hallway, Pft Walk 10/05/2025 1:00 PM EST Appointment [facility] - [address] [place] [address] Aparna Chang MD [address] [place] [phone] 1, Pft Procedure Room 10/05/2025 2:00 PM EST Office Visit [facility] [address] [phone] Aparna Chang MD [address] [place] [phone] documented as of this encounter Visit Diagnoses Diagnosis Paroxysmal atrial fibrillation (HC Code)- Primary Atrial fibrillation documented in this encounter Care Teams Data Virtualization Consultant Relationship Specialty Start Date End Date Jace Blake DO [address] [place] [address] PCP - General Family Medicine 08/01/14 documented as of this encounter
--- OUTSIDE RECORDS SUMMARY | 2025-04-03 12:02 | XMS_ITS | Encounter Summary ---
Author Organization [facility] and [facility] Address [address] [place] [address] Care Team Providers Care Special Delivery Worker Name Role Phone HaydenJace Primary Care Provider [phone] Encounter Details Date Type Department Care Team (Latest Contact Info) Description 06/10/2017 Transcribed Orders [facility] 45 [place] [address] Aki Ross MD [address] [address] Paroxysmal atrial fibrillation (Primary Dx) [...] Follow Up Neuromuscular Medicine at [address] 5565[address] Silvestre Maldonado MD [address] [place] [address] [place] [phone] 07/19/2025 12:20 PM EDT Follow Up Congestive Heart Failure Program at 800 [facility] [address] [place] [address] Diana Coppola MD 800 [facility] [address] 10/05/2025 12:30 PM EST Appointment P[facility] - [address] [address] Aparna Chang MD [address] [place] [phone] Hallway, Pft Walk 10/05/2025 1:00 PM EST Appointment PUL[facility] - [address] [place] [address] Aparna Chang MD [address] [place] [phone] 1, Pft Procedure Room 10/05/2025 2:00 PM EST Office Visit [facility] [address] [phone] Aparna Chang MD [address] [place] [phone] documented as of this encounter Visit Diagnoses Diagnosis Paroxysmal atrial fibrillation (HC Code)- Primary Atrial fibrillation documented in this encounter Care Teams Special Delivery Worker Relationship Specialty Start Date End Date Jace Blake DO [address] [place] [address] PCP - General Family Medicine 08/01/14 documented as of this encounter
--- OUTSIDE RECORDS SUMMARY | 2025-04-03 12:02 | XMS_ITS | Encounter Summary ---
Author Organization [facility] and [facility] Address [address] [place] [address] Care Team Providers Care Substation Design Draftsperson Name Role Phone HaydenJace Primary Care Provider [phone] Encounter Details Date Type Department Care Team (Late st Contact Info) Description 07/01/2017 Scanned Document Neurosurgery at [address] [place] [address] Teodoro Hollingsworth MD [address] [place] [phone] Social History Tobacco Use Types Packs/Day [...] Follow Up Neuromuscular Medicine at [address] 597[address] Silvestre Maldonado MD [address] [place] [phone] 07/19/2025 12:20 PM EDT Follow Up Congestive Heart Failure Program at 800 [facility] [address] [place] [address] Diana Coppola MD 800 [place] [address] 10/05/2025 12:30 PM EST Appointment P[facility] - [address] [address] Aparna Chang MD [address] [place] [phone] Hallway, Pft Walk 10/05/2025 1:00 PM EST Appointment PULMON[facility] LABORATORY - [address] [place] [address] Aparna Chang MD [address] [place] [phone] 1, Pft Procedure Room 10/05/2025 2:00 PM EST Office Visit [facility] [address] [phone] Aparna Chang MD [address] [place] [phone] documented as of this encounter Visit Diagnoses Not on filedocumented in this encounter Care Teams Substation Design Draftsperson Relationship Specialty Start Date End Date Jace Blake DO [address] [place] [address] PCP - General Family Medicine 08/01/14 documented as of this encounter
== END 2025-04-03 11:41 | disposition home or self-care (01) ==
PROVIDERS: PCP Family Medicine; Visit Provider Internal Medicine Hypertension Specialist
DX: N18.9 Chronic kidney disease, unspecified (principal); E87.6 Hypokalemia
CPT/HCPCS: 99214

== ENCOUNTER → 2025-04-03 11:09 | Outpatient (BNVA) | payer MEDICARE, SELFPAY | PROVIDERS: PCP Family Medicine; Visit Provider Internal Medicine Hypertension Specialist | DX: N18.9 Chronic kidney disease, unspecified (principal); E87.6 Hypokalemia | CPT/HCPCS: 99212 ==

== ENCOUNTER 2025-10-03 10:19 | Outpatient (AMB) | payer MEDICARE, SELFPAY ==
--- OUTSIDE RECORDS SUMMARY | 2021-02-27 19:00 | XMS_ITS | Continuity of Care Document ---
Author Organization [facility] Address [address] [place] [phone] Phone Care Team Providers Care Locomotive Inspector Name Role Phone Cece OD OD, Gamal Unavailable Unavailable Allergies, Adverse Reactions, Alerts Substance Reaction Status Criticality No Known Allergies Active No Inform ation Advance Directives Directive Yes / No Effective Date File Name No Information Encounters Encounter Description Practice Location Reason(s) For Visit Diagnoses Date Provider Providers Copied on Encounter [facility] , [address] [place] [address], [id number], tel:[phone] Other secondary cataract, left eyeAge-related nuclear cataract, left eyeUnspecified blepharitis right upper eyelidConjunctival hemorrhage, left eyeAge-related nuclear cataract, right eyeAge-related nuclear cataract, bilateralOther secondary cataract, bilateralVitreous degeneration, bilateralOther secondary cataract, right eyeDry eye syndrome of bilateral lacrimal glandsPersonal history of other diseases of the nervous system and sense organsUnspecified blepharitis left upper eyelid Apr-0 1 Cece OD Gamal. [address] [place], [place], [id number] , [place]. tel: [phone] [facility] , [address] [place] [address], [id number], tel:[phone] No Location No Information Apr-2 0 [facility] OD Gamal. [address] [place], [place], [id number] , [place]. tel: [phone] [facility] , [address] [place] [address] [place], [id number], [place] tel:[phone] Rigo Ramos [facility] Dry eye syndrome of bilateral lacrimal glandsVitreous degeneration, bilateral Feb- 0 Eiselman OD Gamal. [address] [place], [place], [id number] , [place]. tel:[phone] Family History Family Member Type Diagnosis Age At Onset No Information Payers Payer name Insurance type Covered alliance party ID Authoriza tion(s) No Information Social History Type Description Quantity Date Captured Comments Sex Female Smoking Status No Information Chief Complaint And Reason For Visit No Information Reason For Referral Reason For Referral No Information History Of Present Illness Encounter Date Complaint History Of Prese nt Illness No Information Functional Status Date Functional Assessmen t No Information Instructions Date Instruction Arcelia catalan Impression/Plan Assessments Type Assessment Date No Information Patient Care Teams Name Effective Dates (start - stop) Status Members No Information
--- OUTSIDE RECORDS SUMMARY | 2023-07-21 02:51 | XMS_ITS | Continuity of Care Document ---
Author Organization [facility] Address [address] [place] [address] Phone Care Team Providers Care Concrete Curer Name Role Phone Awais Alford MD Unavailable Unavailable Advance Directives Directive Yes / No Effective Date File Name No Information Encounters Encounter Description Practice Location Reason(s) For Visit Diagnoses Date Provider Providers Copied on Encounter [facility], [address] [place], [place], [id number], tel:[phone] [facility] Office No Information Rocío Ernandez. [address] [facility], [address], [place], [place], [id number]. tel:[phone] Family History Family Member Type Diagnosis Age At Onset No Information Payers Payer name Insurance type Covered republican ID Authoriza tion(s) No Information Social History Type Description Quantity Date Captured Comments Sex Female Smoking Status No Information Chief Complaint And Reason For Visit No Information Plan Of Treatment Date Type Action Status No Information History Of Present Illness Encounter Date Complaint History Of Prese nt Illness No Information Instructions Date Instruction Additional Infor mation No Information Assessments Type Assessment Date No Information
[2025-10-03 10:26] VITALS: BP 118/62; PULSE 71; O2SAT 96; BMI 28.7
--- NOTE | 2025-10-03 10:26 | HO.NEPHOV ---
Vital Signs 10/03/25 10:26 Height 6 ft Weight 212 lb BMI 28.7 BP 118/62 Blood Pressure Location Lt brachial Position Sitting Pulse 71 Pulse Source Pulse Oximeter Pulse Oximetry (%) 96 Oxygen Delivery Method Room Air Intake Visit Reasons: 6 MO FU Dress Shoe Inspector Required: No Accompanied by: Self / Same As Patient Allergies No Known Allergies Allergy (Verified 10/03/25 10:29) Medication List - Last Reconciled 10/03/25 by Ronni Garcia MD albuterol sulfate 90 mcg/actuation 2 puffs inhalation Q6H PRN apixaban (Eliquis) 5 mg PO BID atorvastatin 40 mg PO DAILY cholestyramine (with sugar) 4 gram 1 ea PO QPM dexlansoprazole 60 mg PO DAILY doxycycline hyclate 100 mg PO BID empagliflozin (Jardiance) 10 mg PO DAILY furosemide 20 mg PO DAILY gabapentin 800 mg PO DAILY meclizine 12.5 mg PO DAILY PRN metoprolol succinate ER 100 mg PO DAILY paroxetine HCl 20 mg PO DAILY umeclidinium-vilanterol 62.5-25 mcg/actuation (Anoro Ellipta) 1 ea inhalation DAILY HPI Comments Details: Kimberly is a pleasant 74-year-old woman with multiple medical problems including longstanding hypertension diastolic heart failure and COPD. She has been on torsemide 20 mg a day along with potassium supplementation. She was found to have mild CKD with a elevated serum creatinine and mild alkalosis with a might hypokalemia. Two weeks ago she stopped taking torsemide and she has been watching her weight. She is still taking the potassium tab At present she has no shortness of breath. No nausea or vomiting. No edema. No urinary symptoms. 11/28/23 ;Gained 4 lbs ;No edema ;K was 4.7 without diuretics and Alkalosis resolved 12/19/2024. Leg edema has improved. No new issues. 04/03/25 Last week of Dec she was infected with Rotavirus while in [place] Diarrhea on and off. No urinary issues 10/03/25 Overall doing well Recent K and Cr are normal BP well controlled On low dose Lasix ( 20 mg) No new issues [facility] Medical History (Updated 11/15/24 @ 11:41 by Ronni Garcia MD) Weakness Vitamin D deficiency Vertigo Transaminitis Systolic heart failure Sinusitis Pulmonary hypertension Prediabetes Peripheral neuropathy Osteopenia Obstructive sleep apnea syndrome NAFLD (nonalcoholic fatty liver disease) Lung nodule History of IBS Interstitial lung disease Insomnia Hypoxia Hypokalemia Hyperlipemia Colonic polyp HTN (hypertension) GI bleed Atrial fibrillation Iron deficiency anemia Cardiac pacemaker Gastroesophageal reflux disease LA (generalized anxiety disorder) Fatty liver Dyspnea on effort Dyspnea Depressive disorder Crohn's disease of large bowel Cobalamin deficiency CKD (chronic kidney disease), stage II Chronic systolic heart failure Chronic obstructive lung disease Chronic kidney disease, stage 3 Chronic diastolic heart failure Carotid artery stenosis Benign colon polyp Benign essential hypertension Surgical History History of total abdominal hysterectomy Hx of appendectomy History of neck surgery History of laminectomy Hx of cholecystectomy (~03/2019) Physical Exam Vital Signs: BMI result Body Mass Index 28.7 Comfortable Neck supple no JVD. Lungs entry equal no rales. Heart S1-S2 heard no gallop or rub. Abdomen soft nontender. Neuro alert awake oriented. No asterixis. Extremities no edema. Results Reviewed Results Reviewed: 09/22/25 TCO2 : 23 K 4.0 Cr 0.88 BUN 9 Nephrology Results: Hgb, (12.0-16.0) 13.8 g/dl 11/14/24 WBC, (4.8-10.8) 9.7 X10*3/uL 11/14/24 Plt Count, (160-400) 277 X10*3/uL 11/14/24 Sodium, (135-145) 141 mmol/L 03/31/25 Potassium, (3.3-5.1) 4.1 mmol/L Δ 03/31/25 Chloride, (96-108) 108 mmol/L 03/31/25 Carbon Dioxide, (22-29) 25 mmol/L 03/31/25 BUN, (9-16) 11 mg/dL 03/31/25 Creatinine, (0.5-1.4) 0.78 mg/dL 03/31/25 Calcium, (8.4-10.2) 9.2 mg/dL 03/31/25 Urine Protein, (Neg-Trace) Negative mg/dL 11/14/24 Assessment & Plan Assessment & Plan (1) CKD (chronic kidney disease): Code(s): N18.9 - Chronic kidney disease, unspecified Category: Medical (2) Hypokalemia: Code(s): E87.6 - Hypokalemia Category: Medical Plan 74-year-old woman with mild CKD in a setting of congestive heart failure. She probably has a component of hypoperfusion from the use of diuretics. She could have age-related nephron loss leading to mild CKD. Recent imaging did not reveal any obstruction. Recent urine studies were benign and therefore glomerular nephritis or interstitial disease seem unlikely. She has mild alkalosis with hypokalemia both could be due to the use of diuretics. She has stopped taking the diuretics for the past 2 weeks. I will recheck serum electrolytes today. If she has persistent hypokalemia or alkalosis despite stopping the torsemide then we will proceed with further workup including plasma renin activity and aldosterone levels. Since she is not taking the torsemide I have asked her to stop taking potassium supplementation. 12/19/24 Hypokalemia and Alkalosis resolved after stopping diuretics PA and PRA normal Keep LASIX 20 mg PO QD and monitor K Advised to consume potassium rich foods like oranges and bananas. Recheck renal panel PRN. If the potassium stays less than 3.2 I will add potassium supplementation. stay on low salt diet 10/03/25 Renal function stable at baseline : cr 0.88 No hypokalemia or ALkalosis BP acceptable No evidence of Hyperaldosteronism No changes made RTC PRN Coding Level of Care Code Est Pt Level 4 (56047) Diagnoses CKD (chronic kidney disease) N18.9 Hypokalemia E87.6
--- OUTSIDE RECORDS SUMMARY | 2025-10-03 11:51 | XMS_ITS | Encounter Summary ---
Author Organization [facility] Address [address] [place] [address] Care Team Providers Care Sailor Name Role Phone Jace Blake MD Primary Care Provider Provider, Rachid GARCIA Unavailable Unavaila Andres Topete MD Unavailable [phone] Aki Ross MD Unavailable [phone] Ursula Boo MD Unavailable Rocio Youssef PA-C Unavailable Emeterio Valencia MD Unavailable Diana Coppola MD Unavailable Pcp, No Primary Care Provider Unavailabl e Aparna Chang MD Unavailable + [phone] Encounter Details Date Type Department Care Team (Late st Contact Info) Description 06/03/2017 Scanned Document [facility] [place] [address] [address] Aki Ross MD [address] [place] [address] Social History Tobacco Use Types Packs/Day Years Used Date Smoking Tobacco: Former Comments Unknown Sex and Gender Information Value Date Recorded Sex Assigned at Female 07/21/2023 8:52 AM EDT Legal Sex Female 4:11 PM EDT Gender Identity Female 07/21/2023 8:52 AM EDT Sexual Orientation Heterosexual (straight) 07/21 8:52 AM EDT documented as of this encounter Plan of Treatment Not on file documented as of this encounter Visit Diagnoses Not on filedocumented in this encounter Additional Health Concerns Infection Onset Date Last Indicated Resolved Time R/O Gastrointestinal Infection 03/22/2025 09/12/2025 03/23/2025 10:28 PM EDT R/O Gastrointestinal Infection 09/12/2025 09/12/2025 09/13/2025 10:29 PM EDT R/O Gastrointestinal Infection 09/12/2025 09/12/2025 09/17/2025 10:28 PM EDT documented as of this encounter Care Teams Sailor Relationship Specialty Start Date End Date Jace Blake MD [address] [place] [address] PCP - General Psychiatry, General 05/04/17 07/16/25 Pcp, No PCP - General General Medicine 07/17/25 Provider, MD Rachid 04/27/17 Andres Lakhani MD [address] [place] [address] Supervisor [place] [facility] 07/08/19 Aki Ross MD [address] [address] Primary Supervisor [place] Cardiovascular Disease 07/08/19 Ursula Boo MD [address] [place] [address] Gastroenterology 06/07/20 Rocio Youssef PA-C [address] [address] Physician [place] Gastroenterology 06/07/20 Emeterio Valencia MD [address] [address] Clinician Pulmonary Disease 06/20/20 08/22/25 Diana Coppola MD [address] [place] [phone] Internal Medicine 03/22/25 Aparna Chang MD [address] [place] [phone] Physician Pulmonary Disease 08/23/25 documented as of this encounter
--- OUTSIDE RECORDS SUMMARY | 2025-10-03 11:51 | XMS_ITS | Encounter Summary ---
Author Organization [facility] Address [address] [place] [address] Care Team Providers Care Hardware Installation Coordinator Name Role Phone Jace Blake MD Primary Care Provider Provider, Rachid GARCIA Unavailable Unavaila Andres Topete MD Unavailable [phone] Aki Ross MD Unavailable Ursula Boo MD Unavailable Rocio Youssef PA-C Unavailable Emeterio Valencia MD Unavailable Diana Coppola MD Unavailable Pcp, No Primary Care Provider Unavailabl e Aparna Chang MD Unavailable + [phone] Encounter Details Date Type Department Care Team (Late st Contact Info) Description 03/31/2024 Scanned Document [facility] [address] [phone] Tl Mancera, CAMPUS COORDINATOR 5 [facility] [address] [place] [address] Social History Tobacco Use Types [...] documented as of this encounter Care Teams Hardware Installation Coordinator Relationship Specialty Start Date End Date Jace Blake MD [address] [place] [address] PCP - General Psychiatry, General 05/04/17 07/16/25 Pcp, No PCP - General General Medicine 07/17/25 Provider, MD Rachid 04/27/17 Andres Lakhani MD [address] [place] [address] [facility] Cardiology 07/08/19 Aki Ross MD [address] [place] [address] Primary [facility] [place] Cardiovascular Disease 07/08/19 Ursula Boo MD [address] [place] [address] Gastroenterology 06/07/20 Rocio Youssef PA-C [address] [place] [address] Physician Senior Environmental Engineer Gastroenterology 06/07/20 Emeterio Valencia MD [address] [place] [address] Clinician Pulmonary Disease 06/20/20 08/22/25 Diana Coppola MD [address] [place] [phone] Internal Medicine 03/22/25 Aparna Chang MD [address] [place] [phone] Physician Pulmonary Disease 08/23/25 documented as of this encounter
--- OUTSIDE RECORDS SUMMARY | 2025-10-03 11:51 | XMS_ITS | Encounter Summary ---
Author Organization [facility] Address [address] [place] [address] Care Team Providers Care Head Of Loss Prevention Name Role Phone Jace Blake MD Primary Care Provider [phone] Provider, Conversion Unavailable Unavaila Andres Topete MD Unavailable [phone] Aki Ross MD Unavailable [phone] Ursula Boo MD Unavailable [phone] Rocio Youssef PA-C Unavailable Emeterio Valencia MD Unavailable Diana Coppola MD Unavailable Pcp, No Primary Care Provider Unavailabl e Aparna Chang MD Unavailable + [phone] Encounter Details Date Type Department Care Team (Late st Contact Info) Description 10/07/2024 Scanned Document [facility] [place] [address] [place] [phone] Provider, Cardiology Social History Tobacco Use [...] documented as of this encounter Care Teams Head Of Loss Prevention Relationship Specialty Start Date End Date Jace Blake MD [address] [place] [address] PCP - General Psychiatry, General 05/04/17 07/16/25 Pcp, No PCP - General General Medicine 07/17/25 Provider, MD Rachid 04/27/17 Andres Lakhani MD [address] [place] [address] Submarine Operator Cardiology 07/08/19 Aki Ross MD [address] [address] Primary Submarine Operator Cardiovascular Disease 07/08/19 Ursula Boo MD [address] [address] Gastroenterology 06/07/20 Rocio Youssef PA-C [address] [address] Physician Overhauler Helper Gastroenterology 06/07/20 Emeterio Valencia MD [address] [address] Clinician Pulmonary Disease 06/20/20 08/22/25 Diana Coppola MD [address] [place] [phone] Internal Medicine 03/22/25 Aparna Chang MD [address] [place] [phone] Physician Pulmonary Disease 08/23/25 documented as of this encounter
--- OUTSIDE RECORDS SUMMARY | 2025-10-03 11:51 | XMS_ITS | Encounter Summary ---
Author Organization [facility] Address [address] [place] [address] Care Team Providers Care Surgical First Assistant Name Role Phone Jace Blake MD Primary Care Provider [phone] Provider, Rachid GARCIA Unavailable Unavaila Andres Topete MD Unavailable [phone] Aki Ross MD Unavailable [phone] Ursula Boo MD Unavailable Rocio Youssef PA-C Unavailable Emeterio Valencia MD Unavailable Diana Coppola MD Unavailable Pcp, No Primary Care Provider Unavailabl e Aparna Chang MD Unavailable + [phone] Encounter Details Date Type Department Care Team (Late st Contact Info) Description 04/17/2021 Scanned Document [facility] Heart & Vascular [place] [address] [place] [address] Provider, External, [address] [place] [address] Social History Tobacco Use Types Packs/Day Years [...] documented as of this encounter Care Teams Surgical First Assistant Relationship Specialty Start Date End Date Jace Blake MD [address] [place] [address] PCP - General Psychiatry, General 05/04/17 07/16/25 Pcp, No PCP - General General Medicine 07/17/25 ProviderRachid MD 04/27/17 Andres Lakhani MD [address] [place] [address] Business Office Director Cardiology 07/08/19 Aki Ross MD [address] [place] [address] Primary Business Office Director Cardiovascular Disease 07/08/19 Ursula Boo MD [address] [address] Gastroenterology 06/07/20 Rocio Youssef PA-C [address] [address] Physician Flat Sorting Machine Clerk Gastroenterology 06/07/20 [place] [address] [address] Clinician Pulmonary Disease 06/20/20 08/22/25 Diana Coppola MD [address] [place] [phone] Internal Medicine 03/22/25 Aparna Chang MD [address] [place] [phone] Physician Pulmonary Disease 08/23/25 documented as of this encounter
--- OUTSIDE RECORDS SUMMARY | 2025-10-03 11:51 | XMS_ITS | Encounter Summary ---
Author Organization [facility] Address [address] [place] [address] Care Team Providers Care Woods Rider Name Role Phone Jace Blake MD Primary Care Provider Provider, Rachid GARCIA Unavailable Unavaila Andres Topete MD Unavailable [phone] Aki Ross MD Unavailable [phone] Ursula Boo MD Unavailable Rocio Youssef PA-C Unavailable Emeterio Valencia MD Unavailable Diana Coppola MD Unavailable Pcp, No Primary Care Provider Unavailabl e Aparna Chang MD Unavailable + [phone] Encounter Details Date Type Department Care Team (Late st Contact Info) Description 04/23/2021 Scanned Document [facility] Heart & Vascular [place] [address] [place] [address] Provider, External, [address] [place] [address] Social History Tobacco Use Types Packs/Day Years [...] documented as of this encounter Care Teams Woods Rider Relationship Specialty Start Date End Date Jace Blake MD [address] [place] [address] PCP - General Psychiatry, General 05/04/17 07/16/25 Pcp, No PCP - General General Medicine 07/17/25 ProviderRachid MD 04/27/17 Andres Lakhani MD [address] [place] [address] Straightedge Worker Cardiology 07/08/19 Aki Ross MD [address] [place] [address] Primary Straightedge Worker Cardiovascular Disease 07/08/19 Ursula Boo MD [address] [address] Gastroenterology 06/07/20 Rocio Youssef PA-C [address] [address] Physician Compilation Clerk Gastroenterology 06/07/20 [place] [address] [address] Clinician Pulmonary Disease 06/20/20 08/22/25 Diana Coppola MD [address] [place] [phone] Internal Medicine 03/22/25 Aparna Chang MD [address] [place] [phone] Physician Pulmonary Disease 08/23/25 documented as of this encounter
--- OUTSIDE RECORDS SUMMARY | 2025-10-03 11:51 | XMS_ITS | Encounter Summary ---
Author Organization [facility] Address [address] [place] [address] Care Team Providers Care Shot Coat Tender Name Role Phone Jace Blake MD Primary Care Provider Provider, Rachid GARCIA Unavailable Unavaila Andres Topete MD Unavailable Aki Ross MD Unavailable [phone] Ursula Boo MD Unavailable Rocio Youssef PA-C Unavailable Emeterio Valencia MD Unavailable Diana Coppola MD Unavailable Pcp, No Primary Care Provider Unavailabl e Aparna Chang MD Unavailable + [phone] Encounter Details Date Type Department Care Team (Late st Contact Info) Description 06/02/2023 Scanned Document [facility] Heart & Vascular [place] [address] [address] Aki Ross MD [address] [place] [address] Social History Tobacco Use Types Packs/Day [...] documented as of this encounter Care Teams Shot Coat Tender Relationship Specialty Start Date End Date Jace Blake MD [address] [place] [address] PCP - General Psychiatry, General 05/04/17 07/16/25 Pcp, No PCP - General General Medicine 07/17/25 Provider, MD Rachid 04/27/17 Andres Lakhani MD [address] [place] [address] Rail Switchman Cardiology 07/08/19 Aki Ross MD [address] [place] [address] Primary Rail Switchman Cardiovascular Disease 07/08/19 Ursula Boo MD [address] [place] [address] Gastroenterology 06/07/20 Rocio Youssef PA-C [address] [place] [address] Physician Roll Cutting Operator Gastroenterology 06/07/20 Emeterio Valencia MD [address] [place] [address] Clinician Pulmonary Disease 06/20/20 08/22/25 Diana Coppola MD [address] [place] [phone] Internal Medicine 03/22/25 Aparna Chang MD [address] [place] [phone] Physician Pulmonary Disease 08/23/25 documented as of this encounter
--- OUTSIDE RECORDS SUMMARY | 2025-10-03 11:51 | XMS_ITS | Encounter Summary ---
Author Organization [facility] Address [address] [place] [address] Care Team Providers Care Hereditary Cancer Program Coordinator Name Role Phone Jace Blake MD Primary Care Provider Provider, Rachid GARCIA Unavailable Unavaila Andres Topete MD Unavailable [phone] Aki Ross MD Unavailable Ursula Boo MD Unavailable [phone] Rocio Youssef PA-C Unavailable Emeterio Valencia MD Unavailable Diana Coppola MD Unavailable Pcp, No Primary Care Provider Unavailabl e Aparna Chang MD Unavailable + [phone] Encounter Details Date Type Department Care Team (Late st Contact Info) Description 06/20/2020 Scanned Document [facility] Heart & Vascular [place] [address] [place] [phone] Provider, External, [address] [place] [address] Social History Tobacco Use Types Packs/Day Years [...] documented as of this encounter Care Teams Hereditary Cancer Program Coordinator Relationship Specialty Start Date End Date Jace Blake MD [address] [place] [address] PCP - General Psychiatry, General 05/04/17 07/16/25 Pcp, No PCP - General General Medicine 07/17/25 ProviderRachid MD 04/27/17 Andres Lakhani MD [address] [place] [address] Reconciliation Analyst Cardiology 07/08/19 Aki Ross MD [address] [place] [address] Primary Reconciliation Analyst Cardiovascular Disease 07/08/19 Ursula Boo MD [address] [address] Gastroenterology 06/07/20 Rocio Youssef PA-C [address] [address] Physician Universal Grinder Set Up Operator Gastroenterology 06/07/20 Emeterio Valencia MD [address] [address] Clinician Pulmonary Disease 06/20/20 08/22/25 Diana Coppola MD [address] [place] [phone] Internal Medicine 03/22/25 Aparna Chang MD [address] [place] [phone] Physician Pulmonary Disease 08/23/25 documented as of this encounter
--- OUTSIDE RECORDS SUMMARY | 2025-10-03 11:51 | XMS_ITS | Encounter Summary ---
Author Organization [facility] Address [address] [place] [address] Care Team Providers Care Tv News Director Name Role Phone Jace Blake DO Primary Care Provider [phone] Encounter Details Date Type Department Care Team (Late st Contact Info) Description 05/09/2025 Scanned Document [facility] at [address] [facility], [address] [place], [place] [phone] Anand Gurrola, WALDEMAR [address] [place] [phone] Social History Tobacco Use Types Packs/Day Years Used Date Smoking Tobacco: Former Cigarettes 1 40 0 07/14/1972 - 07/14/2012 Smokeless Tobacco: Never Alcohol Use Standard Drinks/Week Comments Yes 0 (1 standard drink = 0.6 oz pur e alcohol) soc PHQ-2 Answer Date Recorded PHQ-2 Total Score 0 05/04/2025 Interpersonal Safety Answer Date Record ed Is there anyone in your life that is hurting or threatening you in anyway? Not on file 05/04/2025 Physical Indicators of Abuse No evidence of phys ical abuse 05/04/2025 Comments No Sex and Gender Information Value Date Recorded Sex Assigned at Not on file Legal Sex Female 9:43 AM EST Gender Identity Not on file Sexual Orientation Not on file documented as of this encounter Plan of Treatment Upcoming Encounters Date Type Department Care Team (Late st Contact Info) Description 10/09/2025 12:40 PM EST Appointment [facility] - [address] [address], Pft Procedure Room 10/09/2025 1:30 PM EST Appointment [facility] - [address] [address] Aparna Chang MD [address] [place] [phone] Hallway, Pft Walk 10/09/2025 2:00 PM EST Office Visit [facility] [address] [address] Aparna Chang MD [address] [place] [phone] 08/22/2026 11:00 AM EDT Follow Up Congestive Heart Failure Program at [address] [place] [phone] Diana Coppola MD [address] [place] [phone] documented as of this encounter Procedures Procedure Name Priority Date/Time Associated Diagnosis Comments PACEMAKER INTERROGATION-IN OFFICE Routine 05/04/2025 12:54 PM EDT documented in this encounter Results * Pacemaker Interrogation-In Office (05/04/2025 12:54 PM EDT) Anatomical Region Laterality Modality Chest Other Anand Gurrola APRN CAR DEVICE INTER ORDERABLES Fi nal Result documented in this encounter Visit Diagnoses Not on filedocumented in this encounter Additional Health Concerns Assessment Noted Time PHQ-9 Depression Total Score: 0 03/16/20 24 10:01 AM EDT documented as of this encounter Care Teams Tv News Director Relationship Specialty Start Date End Date Jace Blake DO [address] [place] [address] PCP - General Family Medicine 08/01/14 documented as of this encounter
--- OUTSIDE RECORDS SUMMARY | 2025-10-03 11:51 | XMS_ITS | Encounter Summary ---
Author Organization [facility] Address [address] [place] [address] Care Team Providers Care Able Bodied [place] Name Role Phone Jace Blake MD Primary Care Provider Provider, Rachid GARCIA Unavailable Unavaila Andres Topete MD Unavailable [phone] Aki Ross MD Unavailable [phone] Ursula Boo MD Unavailable Rocio Youssef PA-C Unavailable Emeterio Valencia MD Unavailable Diana Coppola MD Unavailable Pcp, No Primary Care Provider Unavailabl e Aparna Chang MD Unavailable + [phone] Encounter Details Date Type Department Care Team (Late st Contact Info) Description 04/23/2021 Scanned Document [facility] [address] [place] [phone] Ursula Boo MD 5 [facility] [address] [place] [address] Social History Tobacco Use Types [...] documented as of this encounter Care Teams Able Bodied Tankerman Relationship Specialty Start Date End Date Jace Blake MD [address] [place] [address] PCP - General Psychiatry, General 05/04/17 07/16/25 Pcp, No PCP - General General Medicine 07/17/25 Provider, MD Rachid 04/27/17 Andres Lakhani MD [address] [place] [address] Rn Child Cardiology 07/08/19 Aki Ross MD [address] [place] [address] Primary Rn Child Cardiovascular Disease 07/08/19 Ursula Boo MD [address] [address] Gastroenterology 06/07/20 Rocio Youssef PA-C [address] [address] Physician Upstream Biomanufacturing Technician Gastroenterology 06/07/20 [place] [address] [address] Clinician Pulmonary Disease 06/20/20 08/22/25 Diana Coppola MD [address] [place] [phone] Internal Medicine 03/22/25 Aparna Chang MD [address] [place] [phone] Physician Pulmonary Disease 08/23/25 documented as of this encounter
--- OUTSIDE RECORDS SUMMARY | 2025-10-03 11:51 | XMS_ITS | Encounter Summary ---
Author Organization [facility] Address [address] [place] [address] Care Team Providers Care Service Employee Name Role Phone Jace Blake MD Primary Care Provider Provider, Rachid GARCIA Unavailable Unavaila Andres Topete MD Unavailable [phone] Aki Ross MD Unavailable [phone] Ursula Boo MD Unavailable [phone] Rocio Youssef PA-C Unavailable Emeterio Valencia MD Unavailable Diana Coppola MD Unavailable Pcp, No Primary Care Provider Unavailabl e Aparna Chang MD Unavailable + [phone] Encounter Details Date Type Department Care Team (Late st Contact Info) Description 02/13/2021 Scanned Document [facility] Heart & Vascular [place] [address] [facility], [address] [place] [address] Aki Ross MD [address] [place] [address] Social History Tobacco Use Types Packs/Day Years [...] documented as of this encounter Care Teams Service Employee Relationship Specialty Start Date End Date Jace Blake MD [address] [place] [address] PCP - General Psychiatry, General 05/04/17 07/16/25 Pcp, No PCP - General General Medicine 07/17/25 Provider, MD Rachid 04/27/17 Andres Lakhani MD [address] [place] [address] Advertising Inserter Cardiology 07/08/19 Aki Ross MD [address] [place] [address] Primary Advertising Inserter Cardiovascular Disease 07/08/19 Ursula Boo MD [address] [place] [address] Gastroenterology 06/07/20 Rocio Youssef PA-C [address] [address] Physician Tire Maintenance Technician Gastroenterology 06/07/20 Emeterio Valencia MD [address] [place] [address] Clinician Pulmonary Disease 06/20/20 08/22/25 Diana Coppola MD [address] [place] [phone] Internal Medicine 03/22/25 Aparna Chang MD [address] [place] [phone] Physician Pulmonary Disease 08/23/25 documented as of this encounter
--- OUTSIDE RECORDS SUMMARY | 2025-10-03 11:51 | XMS_ITS | Encounter Summary ---
Author Organization [facility] Address [address] [place] [address] Care Team Providers Care Sewer Tapper Name Role Phone Jace Blake MD Primary Care Provider Provider, Conversion Unavailable Unavaila Andres Topete MD Unavailable [phone] Aki Ross MD Unavailable [phone] Ursula Boo MD Unavailable Rocio Youssef PA-C Unavailable Emeterio Valencia MD Unavailable Diana Coppola MD Unavailable Pcp, No Primary Care Provider Unavailabl e Aparna Chang MD Unavailable + [phone] Encounter Details Date Type Department Care Team (Late st Contact Info) Description 10/30/2023 Scanned Document [facility] Dermatology [place] [address] [place] [address] Nico Bailey MD [address] [place], [place] [phone] Social History Tobacco Use Types Packs/Day Years [...] documented as of this encounter Care Teams Sewer Tapper Relationship Specialty Start Date End Date Jace Blake MD [address] [place] [address] PCP - General Psychiatry, General 05/04/17 07/16/25 Pcp, No PCP - General General Medicine 07/17/25 Provider, MD Rachid 04/27/17 Andres Lakhani MD [address] [place] [address] Biochemistry Specialist Cardiology 07/08/19 Aki Ross MD [address] [place] [address] Primary Biochemistry Specialist Cardiovascular Disease 07/08/19 Ursula Boo MD [address] [place] [address] Gastroenterology 06/07/20 Rocio Youssef PA-C [address] [address] Physician Nursing Department Chairperson Gastroenterology 06/07/20 Emeterio Valencia MD [address] [address] Clinician Pulmonary Disease 06/20/20 08/22/25 Diana Coppola MD [address] [place] [phone] Internal Medicine 03/22/25 Aparna Chang MD [address] [place] [place] [phone] Physician Pulmonary Disease 08/23/25 documented as of this encounter
--- OUTSIDE RECORDS SUMMARY | 2025-10-03 11:51 | XMS_ITS | Encounter Summary ---
Author Organization [facility] Address [address] [place] [address] Care Team Providers Care Mud Analysis Well Logging Captain Name Role Phone Jace Blake MD Primary Care Provider Provider, Rachid GARCIA Unavailable Unavaila Andres Topete MD Unavailable [phone] Aki Ross MD Unavailable [phone] Ursula Boo MD Unavailable Rocio Youssef PA-C Unavailable [phone] Emeterio Valencia MD Unavailable Diana Coppola MD Unavailable Pcp, No Primary Care Provider Unavailabl e Aparna Chang MD Unavailable + [phone] Encounter Details Date Type Department Care Team (Late st Contact Info) Description 10/27/2024 Scanned Document [facility] [address] [place] [phone] Ursula Boo MD 5 [facility] [address] [place] [address] Social History Tobacco Use Types [...] documented as of this encounter Care Teams Mud Analysis Well Logging Captain Relationship Specialty Start Date End Date Jace Blake MD [address] [place] [address] PCP - General Psychiatry, General 05/04/17 07/16/25 Pcp, No PCP - General General Medicine 07/17/25 Provider, MD Rachid 04/27/17 Andres Lakhani MD [address] [place] [address] Head Chopper Cardiology 07/08/19 Aki Ross MD [address] [place] [address] Primary Head Chopper Cardiovascular Disease 07/08/19 Ursula Boo MD [address] [place] [address] Gastroenterology 06/07/20 Rocio Youssef PA-C [address] [place] [address] Physician Director Of Contracts Gastroenterology 06/07/20 Emeterio Valencia MD [address] [place] [address] Clinician Pulmonary Disease 06/20/20 08/22/25 Diana Coppola MD [address] [place] [phone] Internal Medicine 03/22/25 Aparna Chang MD [address] [place] [phone] Physician Pulmonary Disease 08/23/25 documented as of this encounter
--- OUTSIDE RECORDS SUMMARY | 2025-10-03 11:51 | XMS_ITS | Encounter Summary ---
Author Organization [facility] Address [address] [place] [address] Care Team Providers Care Trade Union Secretary Name Role Phone Jace Blake DO Primary Care Provider [phone] Encounter Details Date Type Department Care Team (Late st Contact Info) Description 08/23/2025 Abstract [facility] [address] [place] [address], 2nd floor [facility], [address] [place], [place] [address] Aparna Chang MD [address] [place] [phone] Social History Tobacco Use Types Packs/Day Years Used Date Smoking Tobacco: Former Cigarettes 1 40 0 07/14/1972 - 07/14/2012 Smokeless Tobacco: Never Alcohol Use Standard Drinks/Week Comments Yes 0 (1 standard drink = 0.6 oz pur e alcohol) soc PHQ-2 Answer Date Recorded PHQ-2 Total Score 0 08/16/2025 Interpersonal Safety Answer Date Record ed Is [...] EST Appointment [facility] - [address] [address], Pft Procedure Room 10/09/2025 1:30 PM EST Appointment [facility] - [address] [address] Aparna Chang MD [address] [place] [phone] Hallway, Pft Walk 10/09/2025 2:00 PM EST Office Visit [facility] [address] [address] Aparna Chang MD [address] [place] [phone] 08/22/2026 11:00 AM EDT Follow Up [facility] at [address] [place] [phone] Diana Coppola MD [address] [place] [phone] documented as of this encounter Visit Diagnoses Not on filedocumented in this encounter Additional Health Concerns Assessment Noted Time PHQ-9 Depression Total Score: 0 03/16/20 24 10:01 AM EDT documented as of this encounter Care Teams Trade Union Secretary Relationship Specialty Start Date End Date Jace Blake DO [address] [place] [address] PCP - General Family Medicine 08/01/14 documented as of this encounter
--- OUTSIDE RECORDS SUMMARY | 2025-10-03 11:51 | XMS_ITS | Encounter Summary ---
Author Organization [facility] Address [address] [place] [address] Care Team Providers Care Toll Mechanic Name Role Phone Jace Blake MD Primary Care Provider [phone] Provider, Rachid GARCIA Unavailable Unavaila Andres Topete MD Unavailable [phone] Aki Ross MD Unavailable [phone] Ursula Boo MD Unavailable [phone] Rocio Youssef PA-C Unavailable Emeterio Valencia MD Unavailable Diana Coppola MD Unavailable Pcp, No Primary Care Provider Unavailabl e Aparna Chang MD Unavailable + [phone] Encounter Details Date Type Department Care Team (Late st Contact Info) Description 06/19/2020 Scanned Document [facility] [address] [place] [phone] Ursula Boo MD 5 [facility] [address] [place] [address] Social History Tobacco Use Types [...] documented as of this encounter Care Teams Toll Mechanic Relationship Specialty Start Date End Date Jace Blake MD [address] [place] [address] PCP - General Psychiatry, General 05/04/17 07/16/25 Pcp, No PCP - General General Medicine 07/17/25 Provider, MD Rachid 04/27/17 Andres Lakhani MD [address] [place] [address] Chicken Hanger Cardiology 07/08/19 Aki Ross MD [address] [place] [address] Primary Chicken Hanger Cardiovascular Disease 07/08/19 Ursula Boo MD [address] [address] Gastroenterology 06/07/20 Rocio Youssef PA-C [address] [address] Physician Director Inpatient Headache Program Gastroenterology 06/07/20 [place] [address] [address] Clinician Pulmonary Disease 06/20/20 08/22/25 Diana Coppola MD [address] [place] [phone] Internal Medicine 03/22/25 Aparna Chang MD [address] [place] [phone] Physician Pulmonary Disease 08/23/25 documented as of this encounter
--- OUTSIDE RECORDS SUMMARY | 2025-10-03 11:51 | XMS_ITS | Encounter Summary ---
Author Organization [facility] Address [address] [place] [address] Care Team Providers Care Health Outcomes Liaison Name Role Phone Jcae Blake MD Primary Care Provider [phone] Provider, Rachid GARCIA Unavailable Unavaila Andres Topete MD Unavailable [phone] Aki Ross MD Unavailable [phone] Ursula Boo MD Unavailable Rocio Youssef PA-C Unavailable Emeterio Valencia MD Unavailable Diana Coppola MD Unavailable Pcp, No Primary Care Provider Unavailabl e Aparna Chang MD Unavailable + [phone] Encounter Details Date Type Department Care Team (Late st Contact Info) Description 10/09/2023 Scanned Document [facility] Heart [facility] [place] [address] [place] [phone] Provider, External, [address] [place] [address] Social History Tobacco Use Types Packs/Day Years [...] documented as of this encounter Care Teams Health Outcomes Liaison Relationship Specialty Start Date End Date Jace Blake MD [address] [place] [address] PCP - General Psychiatry, General 05/04/17 07/16/25 Pcp, No PCP - General General Medicine 07/17/25 Provider, MD Rachid 04/27/17 Andres Lakhani MD [address] [place] [address] Heavy Antiarmor Weapons Infantryman Cardiology 07/08/19 Aki Ross MD [address] [place] [address] Primary Heavy Antiarmor Weapons Infantryman Cardiovascular Disease 07/08/19 Ursula Boo MD [address] [place] [address] Gastroenterology 06/07/20 Rocio Youssef PA-C [address] [address] Physician Steel Buffer Gastroenterology 06/07/20 Emeterio Valencia MD [address] [place] [address] Clinician Pulmonary Disease 06/20/20 08/22/25 Diana Coppola MD [address] [place] [phone] Internal Medicine 03/22/25 Aparna Chang MD [address] [place] [phone] Physician Pulmonary Disease 08/23/25 documented as of this encounter
--- OUTSIDE RECORDS SUMMARY | 2025-10-03 11:51 | XMS_ITS | Clinical Summary ---
Author Organization Formerly [facility] Address [address] [place] [address] Care Team Providers Care Oracle Developer Name Role Phone Provider, Conversion MD Unavailable Unavaila Andres Topete MD Unavailable [phone] Aki Ross MD Unavailable [phone] Ursula Boo MD Unavailable Rocio Youssef PA-C Unavailable Diana Coppola MD Unavailable Pcp, No Primary Care Provider Unavailjohn e Aparna Chang MD Unavailable Allergies No known active allergies Medications Probiotic Product (PROBIOTIC-10 PO) Take by mouth. Activ e Multiple Vitamin tablet Take 1 tablet by mouth daily. Active gabapentin (NEURONTIN) 800 MG tablet Take 1 tablet (800 mg total) by mouth nightly. 01/08/20 22 Active famotidine (PEPCID) 20 MG tabletIndication s:Dyspepsia TAKE 1 TABLET (20 MG TOTAL) BY MOUTH 2 (TWO) TIMES A DAY NEEDED FOR INDIGESTION OR HEARTBURN. 180 tablet 3 09/04/20 22 Active empagliflozin (JARDIANCE) 10 MG tabletIndication s:Chronic diastolic heart failure (HCC) Take 1 tablet (10 mg total) by mouth every morning. Do not start before May 30, 2023. 90 tablet 1 05/30/20 23 Active zolpidem (AMBIEN) 10 MG tablet Take 1 tablet (10 mg total) by mouth nightly as needed. 10/28/20 22 Active losartan (COZAAR) 25 MG tablet Take 1 tablet (25 mg total) by mouth daily. 09/28/20 23 Active PARoxetine (PAXIL) 20 MG tablet Take 1 tablet (20 mg total) by mouth. 07/01/20 24 Active furosemide (LASIX) 20 MG tablet Take 20 mg by mouth daily. 11/28/19 25 Active potassium chloride (KLOR-CON) 10 MEQ tablet Take 1 tablet by mouth daily. 11/15/20 24 Active dexlansoprazole (DEXILANT) 60 MG capsuleIndicatio ns:Gastroesophag eal reflux disease TAKE 1 CAPSULE DAILY DIRECTED 90 capsule 3 01/05/20 25 Active apixaban (Eliquis) 5 MG tabletIndication s:Atrial fibrillation, unspecified type (HCC) Take 1 tablet (5 mg total) by mouth 2 (two) times a day. 180 tablet 3 03/08/20 25 Active atorvastatin (LIPITOR) 40 MG tabletIndication s:Dyslipidemia TAKE 1 TABLET DAILY 90 tablet 3 04/18/20 25 Active loperamide (IMODIUM A-D) 2 MG capsule TAKE 1 CAPSULE BY MOUTH FOUR TIMES A DAY NEEDED FOR DIARRHEA FOR UP TO 10 DAYS 04/24/20 25 Active metoPROLOL SUCCINATE (TOPROL-XL) 100 MG 24 hr tabletIndication s:Gastroesophage al reflux disease TAKE 1 TABLET BY MOUTH EVERY DAY 90 tablet 3 07/11/20 25 Active hydrocortisone (ANUSOL-HC) 2.5 % rectal creamIndications :Rectal irritation Insert into the rectum 3 (three) times a day as needed for hemorrhoids. 30 g 1 08/23/20 25 Active cholestyramine resin (QUESTRAN) 4 g packetIndication s:Full incontinence of feces Take 1 packet (4 g total) by mouth every evening with dinner. Add to liquid and stir until completely mixed. 90 packet 3 09/18/20 25 Active cholestyramine resin (QUESTRAN) 4 g packetIndication s:Full incontinence of feces Take 1 packet (4 g total) by mouth every evening with dinner. Add to liquid and stir until completely mixed. 30 packet 1 08/23/20 025 Discontin ued(Reord er) Active Problems Problem [...] diastolic heart failure 04/16/2022 [facility]ritable bowel syndrome 04/16/2022 Orthostatic [...] The patient's plan is to return [place] permanently and they hope to travel in February if her physical condition allows. We discussed issues concerning travel by plane or car. She will see her elastic yarn twister at [facility] as soon as she can when she returns. In the interim if she has other issues she may call here to be seen prior to leaving. Chronic renal impairment, stage 3a 10/23/2021 Overview (04/16/2022): Last Assessment & Plan: Labile creatinine values. Continue to follow with primary care physicians. Interstitial lung disease 10/23/2021 Overview (04/16/2022): Last Assessment & Plan: Evaluated at [facility] and her interstitial lung disease was not [...] Pacemaker dependent. Medtronic device. Follows remotely through [facility]. Last Assessment & Plan: Dual-chamber Medtronic pacemaker. Routinely follows through [facility] [place] elastic yarn twister. Interrogated here with recent syncopal episode. Normal function. Occasional mode switching in atrial high rates without ventricular high rates, 1.4% mode switching.? Ventricular runs. No tracings of that available for my review. We will continue to monitor remotely for now through her [facility] elastic yarn twister. Dilated cardiomyopathy 10/23/2020 Overview (07/15/2021): Last Assessment & Plan: Some recent left ventricular dysfunction. Some consideration of repeat attempted coronary sinus lead for PHOTO MASK PATTERN GENERATOR. This was unsuccessful in the past. She is to discuss and review this option with [facility] when she returns there late February [...] & Plan: To follow-up rheumatology status [facility] [place]. Apparently has lupus and Sjogren's syndrome. Autoimmune disorder 02/18/2019 Overview (04/16/2022): Last Assessment & Plan: Diagnoses has been uncertain. Has seen rheumatology of [place]. History of depression 02/06/2019 Congestive heart failure [...] Neuropathy 10/06/2018 Neuropathy 09/29/2018 Coronary arteriosclerosis in [place] artery 03/01 Coronary artery disease invo lving [place] coronary artery of [place] heart with angina pectoris 03/01/2018 Overview (07/15/2021): Last Assessment & Plan: Mild to moderate by past catheterization 2016. No ischemia 2018 stress test. Cardiac MRI did not suggest ischemia at [facility]. No definite angina. Continue medical therapy and control of risk factors. See discussion concerning lipids. 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 Last Assessment & Plan: Stable left carotid stenosis by recent ultrasound. No TIA or strokelike symptoms or acute findings on head CT. Continue long-term control of cardiovascular risk factors and follow with her other physicians. [facility] vascular Memory impairment 12/02/2015 Memory loss [...] up labs. Will get records from Hem/Onc [facility] [place] (Dr. Escalera at [facility] in [place], [place]). Last Assessment & Plan: GI evaluation [...] by the advanced heart failure program at [facility] when she returns [facility] [place]. Added automatically from request for surgery [id number] Moderate by cath Nov: 66 mmHg peak systolic Last Assessment & Plan: Has been followed at the advanced heart failure program at [facility] and Dr. Coppola. 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 Is maintained on beta-blockers and anticoagulation [...] Encounters Date Type Department Care Team Description 08/23/2025 8:00 AM EDT Office Visit [address] [phone] Kiya Macias APRN Full incontinence of feces (Primary Dx); Change in bowel function; Rectal irritation; History of rectal surgery; Lower abdominal pain 08/23/2025 Travel 07/17/2025 4:15 PM EDT Office Visit [facility] [place] [address] [place] [phone] Aki Ross MD Paroxysmal atrial fibrillation (HCC) (Primary Dx); Cardiac pacemaker in situ; Primary hypertension ; Dyslipidemia 07/17/2025 Travel from Last 3 Months Immunizations Immunization Administration Dates Next Due Covid-19 Vaccine, Unspecified 10/20/2023 ,09/01/2023,09/06/2022,05/27 Covid-19 mRNA Primary Series Vaccine - Moderna 0.5 mL Full Dose 11/26/2021,07/17/2021,02/06/2021,01/19,01/08/2021,12/22/2020 Covid-19 mRNA Randy-sucrose S easonal Vaccine - [email or web address] 30 mcg/0.3 mL 12 years and older 08/24/2023 Influenza (AFLURIA/FLUZONE) Inactivated/Split Quadrivalent with Preservative IM [...] Never Alcohol Use Standard Drinks/Week Comments Yes 1 (1 standard drink = 0.6 oz pur e alcohol) once a week Comments Unknown Sex and Gender Information Value Date Recorded Sex Assigned at Female 07/21/2023 8:52 AM EDT Legal Sex Female 4:11 PM EDT Gender Identity Female 07/21/2023 8:52 AM EDT Sexual Orientation Heterosexual (straight) 07/21 8:52 AM EDT Last Filed Vital Signs Vital Sign Reading Time Taken Comments Blood Pressure 132/69 08/23/2025 7:52 AM EDT Pulse 64 08/23/2025 7:52 AM EDT Temperature 36.1 C (97 F) 08/23/2025 7:52 AM EDT Respiratory Rate 20 07/21/2023 1:02 PM EDT Oxygen Saturation 94% 07/17/2025 4:10 PM EDT Inhaled Oxygen Concentration - - Weight 95.5 kg (210 lb 9.6 oz) 08/23/2025 7:52 A M EDT Height 182.9 cm (6') 08/23/2025 7:52 AM EDT Body Mass Index 28.56 08/23/2025 7:52 AM EDT Plan of Treatment Health Maintenance Due Date Last Done Comments Advance Care Planning 1950 DTaP/Tdap/Td Vaccines (1 - Tdap) 1967 DXA Bone Density (Females,Ages 65 and older) 2013 Zoster (Shingles) Vaccine (1 of 2) 09/24/2021 05/27/2022, 07/30/2021 Influenza Vaccine 06/23/2025 08/15/2024, , 08/24/2023, Additional history exists COVID-19 Vaccine (11 - Moderna risk 2023- season) 2025 08/15/2024, 10/20/2023, 09/01/2023, Additional history exists Colonoscopy Discontinued 07/16/2020, 07/13/2018 Pneumococcal Vaccines 50+ Completed 2021, 04/23/2021, 09/11/2020, Additional history exists Hepatitis C Virus Screening Completed 04/09/2023 RSV Vaccine 50 years and older and Patients Completed 10/05/2023 Hepatitis B Vaccines Aged Out No long er eligible based on patient's age to complete this topic Medical Devices Implanted Type Area Cellophane Wrapping Examiner Device Identifier Shelf Expiration Date Model / Serial / Lot Medtronic 5076 Capsurefix Novus [id number] Implanted:05/2012 (Quantity not on file) Lead Medtronic 5076 CAPSUREFIX NOVUS / [id number] / Medtronic 5076 Capsurefix Novus [id number] Implanted:05/2012 (Quantity not on file) Lead Medtronic 5076 CAPSUREFIX NOVUS / [id number] / [id number] Pacemaker Cardiac 7.4mm 50.8x46.6mm Shoshana Xt Mri Surescan - [id number] Implanted:Qty : 1 on 07/21/2023 by Nigel Moncada MD at [facility] Pacemaker Left: Chest Wall MEDTRONIC MINIMALLY INVASIVE T [id number] 12/06/2024 [id number] / [id number] / Explanted Type Area Cellophane Wrapping Examiner Device Identifier Shelf Expiration Date Model / Serial / Lot [id number] Pacemaker Cardiac 7.5mm 52.3x45.4mm Junaida Mvp Atr Vntrc-04/29/2012 Implanted:05/2012 (Quantity not on file) Explanted:Qty: 1 on 07/21/2023 by Nigel Moncada MD Pacemaker MEDTRONIC MINIMALLY INVASIVE T [id number] / [id number] / Procedures Procedure Name Priority Date/Time Associated Diagnosis Comments PANCREATIC ELASTASE-1, STOOL Routine 09/12/2025 12:52 PM EDT Diarrhea, unspecified type NOROVIRUS PCR, STOOL Routine 09/12/2025 12:52 PM EDT Diarrhea, unspecified type LACTOFERRIN, STOOL, QUANTITATIVE Routine 09/12/2025 12:52 PM EDT Diarrhea, unspecified type C. DIFFICILE TOXIN/GDH WITH REFLEX TO PCR Routine 09/12/2025 12:52 PM EDT Diarrhea, unspecified type ROTAVIRUS STOOL ANTIGEN Routine 09/12/20 12:52 PM EDT Diarrhea, unspecified type CT ABDOMEN+PELVIS W/O CONTRAST Routine 09/05/2025 10:22 AM EDT Change in bowel function History of rectal surgery Lower abdominal pain TISSUE TRANSGLUTAMINASE IGA AB Routine 08/30/2025 12:16 PM EDT Diarrhea, unspecified type IMMUNOGLOBULIN A (IGA), SERUM Routine 08/30/2025 12:16 PM EDT Diarrhea, unspecified type ECG 12-LEAD Routine 07/17/2025 3:24 PM EDT Paroxysmal atrial fibrillation (HCC) HEPATITIS C VIRUS (HCV) ANTIBODY Routine 04/09/2023 2:02 PM EDT from Last 3 Months or Most Recently Relevant to Health Maintenance Results * C. Difficile Toxin/GDH w/ Reflex to PCR (09/12/2025 12:52 PM EDT) Clostridium Difficile Toxin GDH w Refl To PCR [facility] Comment: CLOSTRIDIUM DIFFICILE TOXIN/GDH W/REFL TO PCR Micro Number: [id number] Test Status: Final Specimen Source: Stool Specimen Quality: Inadequate GDH Antigen: Test not performed. Unformed stool required for testing. Toxin A and B: Test not performed. For additional information, please refer to http://education.Athigo/faq/QIT946 (This link is being provided for informational/educational purposes only.) 09/12/2025 12:5 2 PM EDT 09/12/2025 12:54 PM EDT Narrative [facility] - 09/22/2025 7:35 PM EDT SPLIT 08/30/2025 FROM [id number] FASTING:NO COLLECTION KIT GIVEN TO PATIENT. PATIENT ADVISED FASTING: NO us Ursula Boo MD LAB AMB FLUID/STOOL ORDERABL ES Final Result [facility] [address] [place] [phone] * ROTOVIRUS STOOL ANTIGEN (09/12/2025 12:52 PM EDT) Rotovirus Antigen Detection Not Detected [facility] Comment: Reference range: Not Detected 09/12/2025 12:5 2 PM EDT 09/12/2025 12:54 PM EDT Narrative [facility] - 09/22/2025 7:35 PM EDT SPLIT 08/30/2025 FROM [id number] FASTING:NO COLLECTION KIT GIVEN TO PATIENT. PATIENT ADVISED FASTING: NO us Ursula Boo MD LAB AMB MICRO ORDERABLES Fin al Result [facility] [address] [facility] [place] [address] * Norovirus PCR, Stool (09/12/2025 12:52 PM EDT) Pathologist [facility] Norovirus, RT-PCR NOT DETECTED [facility]/ [facility], Comment: REFERENCE RANGE: NOT DETECTED This test was developed and its analytical performance and characteristics have been determined by [facility]. It has not been cleared or approved by FDA. This assay has been validated pursuant to the CLIA regulations and is used for clinical purposes. 09/12/2025 12:5 2 PM EDT 09/12/2025 12:54 PM EDT Narrative [facility] - 09/22/2025 7:35 PM EDT SPLIT 08/30/2025 FROM [id number] FASTING:NO COLLECTION KIT GIVEN TO PATIENT. PATIENT ADVISED FASTING: NO us Ursula Boo MD LAB AMB FLUID/STOOL ORDERABL ES Final Result [facility], [address] [place] [address] * LACTOFERRIN, STOOL, QUANTITATIVE (09/12/2025 12:52 PM EDT) Pathologist [facility] Lactoferrin, Stool <6.25 <7.25 mcg/mL [facility], Comment: The following patient samples should be excluded from use in the test: patients with a history of HIV and/or have hepatitis B or C, patients with a history of infectious diarrhea (within 6 months), and patients having had a colostomy and or ileostomy within 1 month. 09/12/2025 12:5 2 PM EDT 09/12/2025 12:54 PM EDT Narrative [facility] - 09/22/2025 7:35 PM EDT SPLIT 08/30/2025 FROM [id number] FASTING:NO COLLECTION KIT GIVEN TO PATIENT. PATIENT ADVISED FASTING: NO Ursula Boo MD LAB AMB FLUID/STOOL ORDERABL ES Final Result Performing Organization Address [facility] de Phone Number [facility], [address] [place] [address] * PANCREATIC ELASTASE-1, STOOL (09/12/2025 12:52 PM EDT) Pancreatic Elastase-1, Stool 704 >200 mcg/g [facility], Comment: E-1 mcg/g feces Interpretation <100 Severe exocrine pancreatic insufficiency 100-200 Mild to moderate exocrine pancreatic insufficiency >200 Normal Stool 09/12/2025 12:5 2 PM EDT 09/12/2025 12:54 PM EDT Narrative [facility] - 09/22/2025 7:35 PM EDT SPLIT 08/30/2025 FROM [id number] FASTING:NO COLLECTION KIT GIVEN TO PATIENT. PATIENT ADVISED FASTING: NO us Ursula Boo MD LAB AMB FLUID/STOOL ORDERABL ES Final Result Performing Organization Address [facility] Co de Phone Number [facility], [address] [place] [address] * CT Abdomen+pelvis w/o contrast ([id number]) (09/05/2025 10:22 AM EDT) Anatomical Region Laterality Modality Abdomen, Pelvis Computed Tomogra phy Kiya Macias DEMO COORDINATOR IMG CT ORDERABLES Final Result * TISSUE TRANSGLUTAMINASE IGA AB (08/30/2025 12:16 PM EDT) Pathologist [facility] Tissue Transglutaminase IgA Ab <1.0 U/mL [facility] Comment: Value Interpretation ----- <15.0 Antibody not detected > or = 15.0 Antibody detected Blood Blood specimen / Unknown 08/30/2025 12:16 PM EDT 08/30/2025 12:17 PM EDT Narrative [facility] - 08/31/2025 4:33 PM EDT FASTING:NO COLLECTION KIT GIVEN TO PATIENT. PATIENT ADVISED TO RETURN. FASTING: NO Ursula Boo MD LAB BLOOD ORDERABLES Final R esult Performing Organization Address [facility] de Phone Number [facility] [address] [place] [phone] * (ABNORMAL) IMMUNOGLOBULIN A (IGA), SERUM (08/30/2025 12:16 PM EDT) [facility] Immunoglobulin A (IgA) 334(H) 70 - 320 mg/dL [facility] Blood Blood specimen / Unknown 08/30/2025 12:16 PM EDT 08/30/2025 12:17 PM EDT Narrative [facility] - 08/31/2025 4:33 PM EDT FASTING:NO COLLECTION KIT GIVEN TO PATIENT. PATIENT ADVISED TO RETURN. FASTING: NO Ursula Boo MD LAB BLOOD ORDERABLES Final R esult Performing Organization Address [facility] Co de Phone Number [facility] [address] [place] [address] * ECG 12 lead (07/17/2025 3:24 PM EDT) Pathologist [facility] Ventricular rate 64 BPM EKG [facility] Atrial rate 64 BPM EKG [facility] P-R interval 204 ms EKG [facility] QRS duration 150 ms EKG [facility] Q-T interval 470 ms EKG [facility] QTC calculation (Bazett) 485 ms EKG [facility] P axis 93 degrees EKG [facility] R axis -48 degrees EKG [facility] T axis 65 degrees EKG [facility] 07/17/2025 3:24 PM EDT Narrative [facility] - 07/17/2025 4:26 PM EDT AV dual-paced rhythm Abnormal ECG Confirmed by MD Ross Stephen ([id number]) on 07/17/2025 4:26:29 PM Procedure Note Aki Ross MD - 07/17/2025 AV dual-paced rhythm Abnormal ECG Confirmed by MD Ross Stephen ([id number]) on 07/17/2025 4:26:29 PM Aki Ross MD ECG ORDERABLES Final Result [facility] * HEPATITIS C VIRUS (HCV) ANTIBODY (04/09/2023 2:02 PM EDT) Hepatitis C Antibody NON-REACT OBEY NON-REACT OBEY [facility] Hepatitis C Antibody (s/co) 0.15 <1.00 [facility] Comment: HCV antibody was non-reactive. There is no laboratory evidence of HCV infection. In most cases, no further action is required. However, if recent HCV exposure is suspected, a test for HCV RNA (test code 03137) is suggested. For additional information please refer to http://education.Astley Clarke.Gamerius/faq/WQQ31y2 (This link is being provided for informational/ educational purposes only.) 04/09/2023 2:02 PM EDT 04/09/2023 2:12 PM EDT Narrative [facility] - 04/24/2023 9:00 AM EDT FASTING:YES FASTING: YES us Ursula Boo MD LAB BLOOD ORDERABLES Final R esult [facility] [address] [place] [phone] from Last 3 Months or Most Recently Relevant to Health Maintenance Insurance MEDICARE PART A & B [employer] OUT OF [facility] MEDICARE PART A & B [employer] OUT [employer] [facility] Advance Directives * Full Code (Latest Code Status on File) Date Activated Date Inactivated Comments 07/21/2023 9:00 AM Care Teams Oracle Developer Relationship Specialty Start Date End Date Pcp, No PCP - General General Medicine 07/17/25 Rachid Robles MD 04/27/17 Andres Lakhani MD [address] [place] [address] [facility] 07/08/19 Aki Ross MD [address] [place] [phone] Primary [facility] Cardiovascular Disease 07/08/19 Ursula Boo MD [address] [place] [address] Gastroenterology 06/07/20 Rocio Youssef PA-C [address] [facility] [address] [place] [address] Physician Manager Occupational Gastroenterology 06/07/20 Diana Coppola MD [address] [place] [phone] Internal Medicine 03/22/25 Aparna Chang MD [address] [place] [phone] Physician Pulmonary Disease 08/23/25
--- OUTSIDE RECORDS SUMMARY | 2025-10-03 11:51 | XMS_ITS ---
Author Organization Formerly [facility] Address [address] [place] [address] Care Team Providers Care Pickling Grader Name Role Phone Provider, Conversion Unavailable Unavaila Andres Topete MD Unavailable [phone] Aki Ross MD Unavailable [phone] Ursula Boo MD Unavailable Rocio Youssef PA-C Unavailable Diana Coppola MD Unavailable Pcp, No Primary Care Provider Unavailjohn e Aparna Chang MD Unavailable Active Problems Problem Noted Date [...] diastolic heart failure 04/16/2022 Overview (04/16/2022): Aki [facility] Irritable bowel syndrome 04/16/2022 Orthostatic hypotension 01/30/2022 [...] The patient's plan is to return [place] permanently and they hope to travel in February if her physical condition allows. We discussed issues concerning travel by plane or car. She will see her wall attendant at [facility] as soon as she can when she returns. In the interim if she has other issues she may call here to be seen prior to leaving. Chronic renal impairment, stage 3a 10/23/2021 Overview (04/16/2022): Last Assessment & Plan: Labile creatinine values. Continue to follow with primary care physicians. Interstitial lung disease 10/23/2021 Overview (04/16/2022): Last Assessment & Plan: Evaluated at [facility] and her interstitial lung disease was not [...] Pacemaker dependent. Medtronic device. Follows remotely through [facility]. Last Assessment & Plan: Dual-chamber Medtronic pacemaker. [facility] wall attendant. Interrogated here with recent syncopal episode. Normal function. Occasional mode switching in atrial high rates without ventricular high rates, 1.4% mode switching.? Ventricular runs. No tracings of that available for my review. We will continue to monitor remotely for now through her up [facility] wall attendant. Dilated cardiomyopathy 10/23/2020 Overview (07/15/2021): Last Assessment & Plan: Some recent left ventricular dysfunction. Some consideration of repeat attempted coronary sinus lead for FOOD SERVICE AMBASSADOR. This was unsuccessful in the past. She is to discuss and review this option with [facility] when she returns there late February [...] & Plan: To follow-up rheumatology status up [place]. Apparently has lupus and Sjogren's syndrome. Autoimmune disorder 02/18/2019 Overview (04/16/2022): Last Assessment & Plan: Diagnoses has been uncertain. Has seen rheumatology of [place]. History of depression 02/06/2019 Congestive heart failure [...] Neuropathy 10/06/2018 Neuropathy 09/29/2018 Coronary arteriosclerosis in [place] artery 03/01 Coronary artery disease invo lving [place] coronary artery of [place] heart with angina pectoris 03/01/2018 Overview (07/15/2021): Last Assessment & Plan: Mild to moderate by past catheterization 2016. No ischemia 2018 stress test. Cardiac MRI did not suggest ischemia at [facility]. No definite angina. Continue medical therapy and control of risk factors. See discussion concerning lipids. 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 Last Assessment & Plan: Stable left carotid stenosis by recent ultrasound. No TIA or strokelike symptoms or acute findings on head CT. Continue long-term control of cardiovascular risk factors and follow with her other physicians. [facility] vascular Memory impairment 12/02/2015 Memory loss 12/02/2015 [...] up labs. Will get records [facility] (Dr. Escalera at [facility] in [place], [place]). Last Assessment & Plan: GI evaluation [...] by the advanced heart failure program at [facility] when she returns [place]. Added automatically from request for surgery [id number] Moderate by cath Nov: 66 mmHg peak systolic Last Assessment & Plan: Has been followed at the advanced heart failure program at [facility] and Dr. Coppola. 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 Is maintained on beta-blockers and anticoagulation [...]
--- OUTSIDE RECORDS SUMMARY | 2025-10-03 11:51 | XMS_ITS | Encounter Summary ---
Author Organization Formerly [facility] Address [address] [place] [address] Care Team Providers Care Speedboat Operator Name Role Phone Jace Blake MD Primary Care Provider Provider, Rachid GARCIA Unavailable Unavaila Andres Topete MD Unavailable [phone] Aki Ross MD Unavailable [phone] Ursula Boo MD Unavailable Rocio Youssef PA-C Unavailable Emeterio Valencia MD Unavailable Diana Coppola MD Unavailable Pcp, No Primary Care Provider Unavailabl e Aparna Chang MD Unavailable + [phone] Encounter Details Date Type Department Care Team (Late st Contact Info) Description 04/22/2022 Scanned Document [facility] [place] [address] [place] [address] Provider, External, [address] [place] [address] Social History Tobacco Use Types Packs/Day Years [...] documented as of this encounter Care Teams Speedboat Operator Relationship Specialty Start Date End Date Jace Blake MD [address] [place] [address] PCP - General Psychiatry, General 05/04/17 07/16/25 Pcp, No PCP - General General Medicine 07/17/25 Provider, MD Rachid 04/27/17 [place] [address] [place] [address] Storage Worker Cardiology 07/08/19 Aki Ross MD [address] [place] [address] Primary Storage Worker Cardiovascular Disease 07/08/19 Ursula Boo MD [address] [address] Gastroenterology 06/07/20 Rocio Youssef PA-C [address] [place] [address] Physician Field Education Coordinator Gastroenterology 06/07/20 Emeterio Valencia MD [address] [address] Clinician Pulmonary Disease 06/20/20 08/22/25 Diana Coppola MD [address] [place] [phone] Internal Medicine 03/22/25 Aparna Chang MD [address] [place] [phone] Physician Pulmonary Disease 08/23/25 documented as of this encounter
--- OUTSIDE RECORDS SUMMARY | 2025-10-03 11:51 | XMS_ITS | Encounter Summary ---
Author Organization Formerly [facility] Address [address] [place] [address] Care Team Providers Care Video Production Specialist Name Role Phone Jace Blake MD Primary Care Provider [phone] Provider, Rachid GARCIA Unavailable Unavaila Andres Topete MD Unavailable [phone] Aki Ross MD Unavailable [phone] Ursula Boo MD Unavailable Rocio Youssef PA-C Unavailable Emeterio Valencia MD Unavailable Diana Coppola MD Unavailable Pcp, No Primary Care Provider Unavailabl e Aparna Chang MD Unavailable + [phone] Encounter Details Date Type Department Care Team (Late st Contact Info) Description 06/05/2023 Scanned Document [facility] [place] [address] [address] Aki Ross MD [address] [place] [address] Social History Tobacco Use Types Packs/Day [...] documented as of this encounter Care Teams Video Production Specialist Relationship Specialty Start Date End Date Jace Blake MD [address] [place] [address] PCP - General Psychiatry, General 05/04/17 07/16/25 Pcp, No PCP - General General Medicine 07/17/25 Provider, MD Rachid 04/27/17 Andres Lakhani MD [address] [place] [address] Chief Payroll Clerk Cardiology 07/08/19 Aki Ross MD [address] [place] [address] Primary Chief Payroll Clerk Cardiovascular Disease 07/08/19 Ursula Boo MD [address] [place] [address] Gastroenterology 06/07/20 Rocio Youssef PA-C [address] [place] [address] Physician Field Associate Gastroenterology 06/07/20 Emeterio Valencia MD [address] [place] [address] Clinician Pulmonary Disease 06/20/20 08/22/25 Diana Coppola MD [address] [place] [phone] Internal Medicine 03/22/25 Aparna Chang MD [address] [place] [phone] Physician Pulmonary Disease 08/23/25 documented as of this encounter
--- OUTSIDE RECORDS SUMMARY | 2025-10-03 11:51 | XMS_ITS | Encounter Summary ---
Author Organization [facility] Address [address] [place] [address] Care Team Providers Care Group Chief Operator Name Role Phone Jace Blake MD Primary Care Provider Provider, Rachid GARCIA Unavailable Unavaila Andres Topete MD Unavailable [phone] Aki Ross MD Unavailable [phone] Ursula Boo MD Unavailable [phone] Rocio Youssef PA-C Unavailable Emeterio Valencia MD Unavailable Diana Coppola MD Unavailable Pcp, No Primary Care Provider Unavailabl e Aparna Chang MD Unavailable + [phone] Encounter Details Date Type Department Care Team (Late st Contact Info) Description 11/14/2020 Scanned Document [facility] [address] [place] [phone] Ursula Boo MD 5 [facility] [address] [place] [address] Social History Tobacco Use Types [...] documented as of this encounter Care Teams Group Chief Operator Relationship Specialty Start Date End Date Jace Blake MD [address] [place] [address] PCP - General Psychiatry, General 05/04/17 07/16/25 Pcp, No PCP - General General Medicine 07/17/25 Provider, MD Rachid 04/27/17 Andres Lakhani MD [address] [place] [address] Rework Machine Operator Cardiology 07/08/19 Aki Ross MD [address] [place] [address] Primary Rework Machine Operator Cardiovascular Disease 07/08/19 Ursula Boo MD [address] [place] [address] Gastroenterology 06/07/20 Rocio Youssef PA-C [address] [address] Physician Waste Oil Pumper Gastroenterology 06/07/20 Emeterio Valencia MD [address] [place] [address] Clinician Pulmonary Disease 06/20/20 08/22/25 Diana Coppola MD [address] [place] [phone] Internal Medicine 03/22/25 Aparna Chang MD [address] [place] [phone] Physician Pulmonary Disease 08/23/25 documented as of this encounter
--- OUTSIDE RECORDS SUMMARY | 2025-10-03 11:51 | XMS_ITS | Encounter Summary ---
Author Organization [facility] Address [address] [place] [address] Care Team Providers Care Valve Pipe Irrigator Name Role Phone Jace Blake MD Primary Care Provider Provider, Rachid GARCIA Unavailable Unavaila Andres Topete MD Unavailable [phone] Aki Ross MD Unavailable [phone] Ursula Boo MD Unavailable [phone] Rocio Youssef PA-C Unavailable Emeterio Valencia MD Unavailable Diana Coppola MD Unavailable Pcp, No Primary Care Provider Unavailabl e Aparna Chang MD Unavailable + [phone] Encounter Details Date Type Department Care Team (Late st Contact Info) Description 04/30/2023 Scanned Document [facility] [address] [place] [phone] Ursula Boo MD 5 [facility] [address] [place] [address] Social History Tobacco Use Types [...] as of this encounter Care Teams Valve Pipe Irrigator Relationship Specialty Start Date End Date Jace Blake MD [address] [place] [address] PCP - General Psychiatry, General 05/04/17 07/16/25 Pcp, No PCP - General General Medicine 07/17/25 Provider, MD Rachid 04/27/17 Andres Lakhani MD [address] [place] [address] Cracking Still Operator Cardiology 07/08/19 Aki Ross MD [address] [place] [address] Primary Cracking Still Operator Cardiovascular Disease 07/08/19 Ursula Boo MD [address] [address] Gastroenterology 06/07/20 Rocio Youssef PA-C [address] [address] Physician Inspector Radar And Electronics Gastroenterology 06/07/20 Emeterio Valencia MD [address] [place] [address] Clinician Pulmonary Disease 06/20/20 08/22/25 Diana Coppola MD [address] [place] [phone] Internal Medicine 03/22/25 Aparna Chang MD [address] [place] [phone] Physician Pulmonary Disease 08/23/25 documented as of this encounter
--- OUTSIDE RECORDS SUMMARY | 2025-10-03 11:51 | XMS_ITS | Clinical Summary ---
Author Organization [facility] Address [address] [facility] [address] [place] [address] Phone Care Team Providers Care Poultry Processing Supervisor Name Role Phone Jace Blake DO Primary Care Provider Allergies Active Allergy Reactions Criticality Noted Date Comments Iodinated Contrast Media 05/22/2014 UNSPECIFIED Contrast Media - PHS Allergy Remediation Active Problems Problem Noted Date Diagnosed Date Atrial fibrillation 04/14/2013 Overview (01/13/2015): Atrial fibrillation Encounters Date Type Department Care Team Description 2025 8:50 AM EDT Office Visit [facility] at [address] [address] Aparna Cox CNP Respiratory distress (Primary Dx) from Last 3 Months Immunizations Immunization Administration Dates Next Due Influenza, Unspecified Formulation 10/04/2012 Pneumococcal polysaccharide PPSV23 10/04/2012,(Deferred: Other) Pneumococcal, Unspecified Formulation (Deferred: Other - , Ordered By: [id number]) Social History Tobacco Use Types Packs/Day Years Used Date Smoking Tobacco: Former Education Answer Date Recorded Are you interested in more education? Not on shereen e 04/02/2023 Are you concerned about learning? Not on file 04/02/2023 No 04/02/2023 No 04/02/2023 Digital Access Answer Date Recorded No 04/19/2023 No 04/19/2023 Reliable internet access at home? Not on file 04/19/2023 Device with a working camera? Not on file Comments Unknown Sex and Gender Information Value Date Recorded Sex Assigned at Not on file Legal Sex Female 6:51 PM EST Gender Identity Not on file Sexual Orientation Not on file Last Filed Vital Signs Vital Sign Reading Time Taken Comments Blood Pressure 142/87 05/22/2014 9:31 AM EDT Pulse 114 2025 8:45 AM EDT Temperature 36.4 C (97.6 F) 2025 8:45 AM EDT Respiratory Rate 30 2025 8:45 AM EDT Oxygen Saturation 98% 2025 8:45 AM EDT Inhaled Oxygen Concentration - - Weight 93.9 kg (207 lb) 05/22/2014 9:31 AM EDT Height 177.8 cm (5' 10 ) 05/22/2014 9:31 AM EDT Body Mass Index 29.7 05/22/2014 9:31 AM EDT Plan of Treatment Health Maintenance Due Date Last Done Comments Adult Td,Tdap Booster 1948 LIPID PANEL 1948 DEPRESSION SCREENING 1960 SMOKING Hx and SMOKELESS TOBACCO SCREENING 1961 ZOSTER VACCINES (1 of 2) 1998 OSTEOPOROSIS SCREENING INITIAL (ONE-TIME) 2013 PNEUMOCOCCAL VACCINES (50+ years) (2 of 2 - PCV) 09/12/2019 09/12/2018, 10/04/2012 RSV VACCINE (1 - 1-dose 75+ series) 2023 INFLUENZA VACCINE (#1) 2025 0, 08/29/2019, 08/29/2019, Additional history exists COVID-19 VACCINE ( - 2024- season) 2025 HEPATITIS C SCREENING Completed 04/09/2023, 013 HEPATITIS A VACCINES Aged Out No long er eligible based on patient's age to complete this topic HIB VACCINES Aged Out No longer eligi ble based on patient's age to complete this topic IPV VACCINES Aged Out No longer eligi ble based on patient's age to complete this topic MENINGOCOCCAL VACCINES (ACWY) Aged Out No longer eligible based on patient's age to complete this topic MENINGOCOCCAL VACCINES (B) Aged Out N o longer eligible based on patient's age to complete this topic Medical Devices Not on file Procedures Procedure Name Priority Date/Time Associated Diagnosis Comments HISTORICAL LAB Routine 01/14/2013 12:43 PM EST from Last 3 Months or Most Recently Relevant to Health Maintenance Results * Historical Lab (01/14/2013 12:43 PM EST) 25(OH)VITAMIN D 25 20 - 80 ng/mL [facility] NICANOR(HEP2)TITER 1/40 0.0 - 0.0 titer [facility] NICANOR(HEP2)PATTE RN DIFFUSE 0.0 - 0.0 pattern [facility] HBsAg NEGATIVE NEGATIVE [facility] HBc IgM NEGATIVE NEGATIVE [facility] HCV NEGATIVE NEGATIVE [facility] 01/14/2013 12:4 3 PM EST Comment:BLOOD us Yovanny Goode MD LAB BLOOD ORDERABL ES Final Result [address] [address] from Last 3 Months or Most Recently Relevant to Health Maintenance Insurance MEDICARE PART A & B [facility] MEDEX SUPPLEMENT MEDICARE PART A & B [employer] MEDEX SUPPLEMENT MEDICARE PART A & B [employer] MEDEX SUPPLEMENT MEDICARE PART A & B [employer] MEDEX SUPPLEMENT MEDICARE PART A & B [employer] MEDEX SUPPLEMENT MEDICARE PART A & B [employer] MEDEX SUPPLEMENT MEDICARE PART A & B [employer] MEDEX SUPPLEMENT MEDICARE PART A & B [employer] MEDEX SUPPLEMENT MEDICARE PART A & B [employer] MEDEX SUPPLEMENT Care Teams Poultry Processing Supervisor Relationship Specialty Start Date End Date Jace Blake DO [address] [place] [address] [place] [address] PCP - General 03/29/15 Additional Source Comments The information contained in this document represents components of the legal health record. It is not the complete legal health record.[facility]
--- OUTSIDE RECORDS SUMMARY | 2025-10-03 11:52 | XMS_ITS | Encounter Summary ---
Author Organization Formerly [facility] Address [address] [place] [address] Care Team Providers Care Seamless Tube Drawer Name Role Phone Jace Blake MD Primary Care Provider Provider, Rachid GARCIA Unavailable Unavaila Andres Topete MD Unavailable [phone] Aki Ross MD Unavailable [phone] Ursula Boo MD Unavailable [phone] Rocio Youssef PA-C Unavailable Emeterio Valencia MD Unavailable Diana Coppola MD Unavailable Pcp, No Primary Care Provider Unavailabl e Aparna Chang MD Unavailable + [phone] Encounter Details Date Type Department Care Team (Late st Contact Info) Description 07/17/2020 Scanned Document [facility] [address] [place] [phone] Ursula Boo MD 5 [facility] [address] [place] [address] Social History Tobacco Use Types [...] documented as of this encounter Care Teams Seamless Tube Drawer Relationship Specialty Start Date End Date Jace Blake MD [address] [place] [address] PCP - General Psychiatry, General 05/04/17 07/16/25 Pcp, No PCP - General General Medicine 07/17/25 Provider, MD Rachid 04/27/17 Andres Lakhani MD [address] [place] [address] Logistics Coordinator Cardiology 07/08/19 Aki Ross MD [address] [place] [address] Primary Logistics Coordinator Cardiovascular Disease 07/08/19 Ursula Boo MD [address] [address] Gastroenterology 06/07/20 Rocio Youssef PA-C [address] [address] Physician Laminator Preforms Gastroenterology 06/07/20 [place] [address] [address] Clinician Pulmonary Disease 06/20/20 08/22/25 Diana Coppola MD [address] [place] [phone] Internal Medicine 03/22/25 Aparna Chang MD [address] [place] [phone] Physician Pulmonary Disease 08/23/25 documented as of this encounter
--- OUTSIDE RECORDS SUMMARY | 2025-10-03 11:52 | XMS_ITS | Encounter Summary ---
Author Organization [facility] Address [address] [place] [address] Care Team Providers Care Decator Operator Name Role Phone Jace Blake MD Primary Care Provider Provider, Conversion Unavailable Unavaila Andres Topete MD Unavailable [phone] Aki Ross MD Unavailable [phone] Ursula Boo MD Unavailable Rocio Youssef PA-C Unavailable Emeterio Valencia MD Unavailable Diana Coppola MD Unavailable Pcp, No Primary Care Provider Unavailabl e Aparna Chang MD Unavailable + [phone] Encounter Details Date Type Department Care Team (Late st Contact Info) Description 08/17/2020 Scanned Document [facility] [address] [place] [phone] Eva Suazo MD 5 [facility] [address] [place] [address] Social History Tobacco Use Types [...] documented as of this encounter Care Teams Decator Operator Relationship Specialty Start Date End Date Jace Blake MD [address] [place] [address] PCP - General Psychiatry, General 05/04/17 07/16/25 Pcp, No PCP - General General Medicine 07/17/25 Provider, MD Rachid 04/27/17 Andres Lakhani MD [address] [place] [address] Geographic Area Intelligence Officer Cardiology 07/08/19 Aki Ross MD [address] [place] [address] Primary Geographic Area Intelligence Officer Cardiovascular Disease 07/08/19 Ursula Boo MD [address] [address] Gastroenterology 06/07/20 Rocio Youssef PA-C [address] [address] Physician Infrastructure Administrator Gastroenterology 06/07/20 [place] [address] [address] Clinician Pulmonary Disease 06/20/20 08/22/25 Diana Coppola MD [address] [place] [phone] Internal Medicine 03/22/25 Aparna Chang MD [address] [place] [phone] Physician Pulmonary Disease 08/23/25 documented as of this encounter
--- OUTSIDE RECORDS SUMMARY | 2025-10-03 11:52 | XMS_ITS | Encounter Summary ---
Author Organization Former[facility] Address [address] [place] [address] Care Team Providers Care Field Auto Appraiser Name Role Phone Jace Blake MD Primary Care Provider Provider, Rachid GARCIA Unavailable Unavaila Andres Topete MD Unavailable [phone] Aki Ross MD Unavailable [phone] Ursula Boo MD Unavailable Rocio Youssef PA-C Unavailable [phone] Emeterio Valencia MD Unavailable Diana Coppola MD Unavailable Pcp, No Primary Care Provider Unavailabl e Aparna Chang MD Unavailable + [phone] Encounter Details Date Type Department Care Team (Late st Contact Info) Description 08/06/2020 Scanned Document [facility] [address] [place] [phone] Ursula Boo MD 5 [facility] [address] [place] [address] Social History Tobacco Use Types [...] documented as of this encounter Care Teams Field Auto Appraiser Relationship Specialty Start Date End Date Jace Blake MD [address] [place] [address] PCP - General Psychiatry, General 05/04/17 07/16/25 Pcp, No PCP - General General Medicine 07/17/25 Provider, MD Rachid 04/27/17 Andres Lakhani MD [address] [place] [address] Trailer Tank Truck Driver Cardiology 07/08/19 Aki Ross MD [address] [place] [address] Primary Trailer Tank Truck Driver Cardiovascular Disease 07/08/19 Ursula Boo MD [address] [address] Gastroenterology 06/07/20 Rocio Youssef PA-C [address] [address] Physician Pipe Crew Foreman Gastroenterology 06/07/20 [place] [address] [address] Clinician Pulmonary Disease 06/20/20 08/22/25 Diana Coppola MD [address] [place] [phone] Internal Medicine 03/22/25 Aparna Chang MD [address] [place] [phone] Physician Pulmonary Disease 08/23/25 documented as of this encounter
--- OUTSIDE RECORDS SUMMARY | 2025-10-03 11:52 | XMS_ITS | Encounter Summary ---
Author Organization [facility] Address [address] [place] [address] Care Team Providers Care Hostel Parent Name Role Phone HaydenJace Primary Care Provider [phone] Encounter Details Date Type Department Care Team (Late st Contact Info) Description 06/28/2019 Transcribed Orders [facility] [address] [place] [address] Aki Ross MD [address] [address] Social History Tobacco Use Types [...] PM EST Appointment [facility] - [address] [id number] [id number], Pft Procedure Room 10/09/2025 1:30 PM EST Appointment [facility] - [address] [address] Aparna Chang MD [address] [place] [phone] [place], Pft Walk 10/09/2025 2:00 PM EST Office Visit [facility] [address] [address] Aparna Chang MD [address] [place] [phone] 08/22/2026 11:00 AM EDT Follow Up [facility] at [address] [place] [phone] Diana Coppola MD [address] [place] [phone] documented as of this encounter Visit Diagnoses Not on filedocumented in this encounter Care Teams Hostel Parent Relationship Specialty Start Date End Date Jace Blake DO [address] [place] [address] PCP - General Family Medicine 08/01/14 documented as of this encounter
--- OUTSIDE RECORDS SUMMARY | 2025-10-03 11:52 | XMS_ITS | Encounter Summary ---
Author Organization Formerly [facility] Address [address] [place] [address] Care Team Providers Care Testing And Regulating Chief Name Role Phone Jace Blake MD Primary Care Provider Provider, Rachid GARCIA Unavailable Unavaila Andres Topete MD Unavailable [phone] Aki Ross MD Unavailable [phone] Ursula Boo MD Unavailable Rocio Youssef PA-C Unavailable [phone] Emeterio Valencia MD Unavailable Diana Coppola MD Unavailable Pcp, No Primary Care Provider Unavailabl e Aparna Chang MD Unavailable + [phone] Encounter Details Date Type Department Care Team (Late st Contact Info) Description 07/25/2020 Scanned Document [facility] [address] [place] [phone] Ursula Boo MD 5 [facility] [address] [place] [address] Social History Tobacco Use Types [...] documented as of this encounter Care Teams Testing And Regulating Chief Relationship Specialty Start Date End Date Jace Blake MD [address] [place] [address] PCP - General Psychiatry, General 05/04/17 07/16/25 Pcp, No PCP - General General Medicine 07/17/25 Provider, MD Rachid 04/27/17 Andres Lakhani MD [address] [place] [address] Contract Processor Cardiology 07/08/19 Aki Ross MD [address] [place] [address] Primary Contract Processor Cardiovascular Disease 07/08/19 Ursula Boo MD [address] [address] Gastroenterology 06/07/20 Rocio Youssef PA-C [address] [address] Physician Customer Account Representative Gastroenterology 06/07/20 [place] [address] [address] Clinician Pulmonary Disease 06/20/20 08/22/25 Diana Coppola MD [address] [place] [phone] Internal Medicine 03/22/25 Aparna Chang MD [address] [place] [phone] Physician Pulmonary Disease 08/23/25 documented as of this encounter
--- OUTSIDE RECORDS SUMMARY | 2025-10-03 11:52 | XMS_ITS | Encounter Summary ---
Author Organization [facility] Address [address] [place] [address] Care Team Providers Care Hogshead Wrecker Name Role Phone Jace Blake MD Primary Care Provider Provider, Rachid GARCIA Unavailable Unavaila Andres Topete MD Unavailable [phone] Aki Ross MD Unavailable [phone] Ursula Boo MD Unavailable Rocio Youssef PA-C Unavailable [phone] Emeterio Valencia MD Unavailable Diana Coppola MD Unavailable Pcp, No Primary Care Provider Unavailabl e Aparna Chang MD Unavailable + [phone] Encounter Details Date Type Department Care Team (Late st Contact Info) Description 07/01/2023 Scanned Document [facility] [address] [place] [phone] Ursula Boo MD 5 [facility] [address] [place] [address] Social History Tobacco Use Types [...] documented as of this encounter Care Teams Hogshead Wrecker Relationship Specialty Start Date End Date Jace Blake MD [address] [place] [address] PCP - General Psychiatry, General 05/04/17 07/16/25 Pcp, No PCP - General General Medicine 07/17/25 Provider, MD Rachid 04/27/17 Andres Lakhani MD [address] [place] [address] Painter Ordnance Cardiology 07/08/19 Aki Ross MD [address] [place] [address] Primary Painter Ordnance Cardiovascular Disease 07/08/19 Ursula Boo MD [address] [place] [address] Gastroenterology 06/07/20 Rocio Youssef PA-C [address] [place] [address] Physician Food And Beverage Server Gastroenterology 06/07/20 Emeterio Valencia MD [address] [place] [address] Clinician Pulmonary Disease 06/20/20 08/22/25 Diana Coppola MD [address] [place] [phone] Internal Medicine 03/22/25 Aparna Chang MD [address] [place] [phone] Physician Pulmonary Disease 08/23/25 documented as of this encounter
--- OUTSIDE RECORDS SUMMARY | 2025-10-03 11:52 | XMS_ITS | Encounter Summary ---
Author Organization [facility] Address [address] [place] [address] Care Team Providers Care Data Entry Representative Name Role Phone Jace Blake DO Primary Care Provider [phone] Encounter Details Date Type Department Care Team (Late st Contact Info) Description 06/09/2019 Scanned Document [facility] [address] [place] [address] Narda Candelaria PA [address] [place] [phone] Social History Tobacco Use Types Packs/Day Years [...] EST Appointment [facility] - [address] [address] 6, Pft Procedure Room 10/09/2025 1:30 PM EST Appointment [facility] - [address] [address] Aparna Chang MD [address] [place] [phone] Hallway, Pft Walk 10/09/2025 2:00 PM EST Office Visit [facility] [address] [address] Aparna Chang MD [address] [place] [phone] 08/22/2026 11:00 AM EDT Follow Up [facility] at [address] [place] [address] [phone] Diana Coppola MD [address] [place] [phone] documented as of this encounter Visit Diagnoses Not on filedocumented in this encounter Care Teams Data Entry Representative Relationship Specialty Start Date End Date Jace Blake DO [address] [place] [address] PCP - General Family Medicine 08/01/14 documented as of this encounter
--- OUTSIDE RECORDS SUMMARY | 2025-10-03 11:52 | XMS_ITS | Encounter Summary ---
Author Organization [facility] Address [address] [place] [address] Care Team Providers Care Linen Checker Name Role Phone Jace Blake MD Primary Care Provider Provider, Rachid GARCIA Unavailable Unavaila Andres Topete MD Unavailable [phone] Aki Ross MD Unavailable [phone] Ursula Boo MD Unavailable Rocio Youssef PA-C Unavailable Emeterio Valencia MD Unavailable Diana Coppola MD Unavailable Pcp, No Primary Care Provider Unavailabl e Aparna Chang MD Unavailable + [phone] Encounter Details Date Type Department Care Team (Late st Contact Info) Description 07/25/2020 Scanned Document [facility] [address] [place] [phone] Ursula Boo MD 5 [facility] 104 [place] [address] Social History Tobacco Use Types [...] documented as of this encounter Care Teams Linen Checker Relationship Specialty Start Date End Date Jace Blake MD [address] [place] [address] PCP - General Psychiatry, General 05/04/17 07/16/25 Pcp, No PCP - General General Medicine 07/17/25 Provider, MD Rachid 04/27/17 Andres Lakhani MD [address] [place] [address] Teacher Drama Cardiology 07/08/19 Aki Ross MD [address] [place] [address] Primary Teacher Drama Cardiovascular Disease 07/08/19 Ursula Boo MD [address] [address] Gastroenterology 06/07/20 Rocio Youssef PA-C [address] [address] Physician Outsole Flexer Gastroenterology 06/07/20 [place] [address] [address] Clinician Pulmonary Disease 06/20/20 08/22/25 Diana Coppola MD [address] [place] [phone] Internal Medicine 03/22/25 Aparna Chang MD [address] [place] [phone] Physician Pulmonary Disease 08/23/25 documented as of this encounter
--- OUTSIDE RECORDS SUMMARY | 2025-10-03 11:52 | XMS_ITS | Encounter Summary ---
Author Organization [facility] Address [address] [place] [address] Care Team Providers Care Medicine And Health Service Manager Name Role Phone Jace Blake MD Primary Care Provider Provider, Rachid GARCIA Unavailable Unavaila Andres Topete MD Unavailable [phone] Aki Ross MD Unavailable [phone] Ursula Boo MD Unavailable Rocio Youssef PA-C Unavailable Emeterio Valencia MD Unavailable Diana Coppola MD Unavailable Pcp, No Primary Care Provider Unavailabl e Aparna Chang MD Unavailable + [phone] Encounter Details Date Type Department Care Team (Late st Contact Info) Description 06/24/2023 Scanned Document [facility] [address] [place] [phone] Ursula Boo MD 5 [facility] 104 [place] [address] Social History Tobacco Use Types [...] documented as of this encounter Care Teams Medicine And Health Service Manager Relationship Specialty Start Date End Date Jace Blake MD [address] [place] [address] PCP - General Psychiatry, General 05/04/17 07/16/25 Pcp, No PCP - General General Medicine 07/17/25 Provider, MD Rachid 04/27/17 Andres Lakhani MD [address] [place] [address] Instrument Assembler Cardiology 07/08/19 Aki Ross MD [address] [place] [address] Primary Instrument Assembler Cardiovascular Disease 07/08/19 Ursula Boo MD [address] [place] [address] Gastroenterology 06/07/20 Rocio Youssef PA-C [address] [place] [address] Physician Train Controller Gastroenterology 06/07/20 Emeterio Valencia MD [address] [place] [address] Clinician Pulmonary Disease 06/20/20 08/22/25 Diana Coppola MD [address] [place] [phone] Internal Medicine 03/22/25 Aparna Chang MD [address] [place] [phone] Physician Pulmonary Disease 08/23/25 documented as of this encounter
--- OUTSIDE RECORDS SUMMARY | 2025-10-03 11:52 | XMS_ITS | Patient Health Record ---
Author Organization [facility] Address [address] [address] Care Team Providers Care Director Of Marketing Name Role Phone Darrell GARCIA, Chela Primary Care Provider Gilmer Kidd Unavailable [phone] Reason For Referral No Information Immunizations Vaccine Route Administration Date Status Comme nts COVID19 Unknown 12/10/2020 Administered Status:Compl ete ,Reason:Declined by Patient/Guardian Influenza (split), 3 yrs and above Unknown 07/17/2020 Administered Status:Prelimina ry ,Reason:Given or N/A Pneumococcal polysaccharide PPV23 Unknown 07/17/2020 Administered Status:Prel iminary ,Reason:Given or N/A Social History Social History Additional Details Category Social Info Options Details Migrated Social History Migrated Social History Problem Title : Alcohol use, Problem Comment : 11/11/2020: Currently drinks 7 or less drinks per week., Problem Status : Active,, Problem Title : Body Piercings, Problem Status : Active,, Problem Title : Caffeine use, Problem Comment : Drinks 1-2 caffeinated beverages per day., Problem Status : Active,, Problem Title : HIV risk factors, Problem Comment : Has never engaged in high risk behavior for STDs., Problem Status : Active,, Problem Title : Illicit drug use, Problem Comment : Never used IV drugs or other recreational drugs., Problem Status : Active,, Problem Title : Living situation, Problem Comment : does not live alone, Problem Status : Active,, Problem Title : Tobacco use, Problem Comment : 11/11/2020: less than 1 pack(s) per day for more than 10 years; Previously used other tobacco products., Problem Status : Active, Attribute Title : Former smoker Problems Problem Type SNOMED Code ICD Code Onset Dates Problem Status W/U Status Risk Notes Problem Information temporarily unavailable Pulmonary hypertension (I27.20) Active confirmed Problem Information temporarily unavailable Sjogren's disease (M35.00) Active confirmed Problem Information temporarily unavailable Elevated alkaline phosphatase level (R74.8) Active confirmed Problem Information temporarily unavailable 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 Problem Information temporarily unavailable LFTs abnormal (R79.89) Active confirmed Problem Information temporarily unavailable Obesity with body mass index 30 or greater (E66.9) Active confirmed Plan Of Treatment No Information Insurance Providers Payer Name Payer Address Payer Phone Subscriber Number Group Number Insured Name Patient Relationship to Insured Coverage Start Date Coverage End Date [place] Medicare Part B [id number] [address] [address] [place] [address] [id number] Cyndy Kimberly Self - patient is the insured [facility] [id number] [address] [place] [address] [phone] [id number] Cyndy Kimberly Self - patient is the insured Medical (General) History Surgical History Surgery Date(Month/Year) Problem Title : Appendectomy, Problem [facility] : Active, Problem Title : Gallbladder Surgery, Pro blem Status : Active, Problem Title : Hysterectomy, Problem [facility] : Active, Problem Title : Resection of Large Bowel , Problem Status : Active, Problem Title : Back Surgery, Problem St [facility] : Active,
--- OUTSIDE RECORDS SUMMARY | 2025-10-03 11:52 | XMS_ITS | Encounter Summary ---
Author Organization [facility] [place] [facility] Address [address] [place] [address] Care Team Providers Care Sliver Lap Tender Name Role Phone Hayden Jace Primary Care Provider [phone] Encounter Details Date Type Department Care Team (Late st Contact Info) Description 10/24/2024 Scanned Document INTERFACE DEFAULT [address] [place] [address] System, Provider Not In Social History Tobacco [...] EST Appointment [facility] - [address] [phone], Pft Procedure Room 10/09/2025 1:30 PM EST Appointment [facility] - [address] [address] Aparna Chang MD [address] [place] [phone] Hallway, Pft Walk 10/09/2025 2:00 PM EST Office Visit [facility] [address] [address] Aparna Chang MD [address] [place] [phone] 08/22/2026 11:00 AM EDT Follow Up [facility] at [address] [place] [address] Diana Coppola MD [address] [place] [phone] documented as of this encounter Visit Diagnoses Not on filedocumented in this encounter Additional Health Concerns Assessment Noted Time PHQ-9 Depression Total Score: 0 03/16/20 24 10:01 AM EDT documented as of this encounter Care Teams Sliver Lap Tender Relationship Specialty Start Date End Date Jace Blake DO [address] [place] [address] PCP - General Family Medicine 08/01/14 documented as of this encounter
--- OUTSIDE RECORDS SUMMARY | 2025-10-03 11:52 | XMS_ITS | Encounter Summary ---
Author Organization Former[facility] Address [address] [place] [address] Care Team Providers Care Director Center Name Role Phone Jace Blake MD Primary Care Provider [phone] Provider, Rahcid GARCIA Unavailable Unavaila Andres Topete MD Unavailable [phone] Aki Ross MD Unavailable [phone] Ursula Boo MD Unavailable Rocio Youssef PA-C Unavailable Emeterio Valencia MD Unavailable Diana Coppola MD Unavailable Pcp, No Primary Care Provider Unavailabl e Aparna Chang MD Unavailable + [phone] Encounter Details Date Type Department Care Team (Late st Contact Info) Description 07/01/2023 Scanned Document [facility] [place] [address] [place] [phone] Provider, External, [address] [place] [address] Social History Tobacco Use Types Packs/Day Years [...] as of this encounter Care Teams Director Center Relationship Specialty Start Date End Date Jace Blake MD [address] [place] [address] PCP - General Psychiatry, General 05/04/17 07/16/25 Pcp, No PCP - General General Medicine 07/17/25 Provider, MD Rachid 04/27/17 Andres Lakhani MD [address] [place] [address] Program Professional Cardiology 07/08/19 Aki Ross MD [address] [place] [address] Primary Program Professional Cardiovascular Disease 07/08/19 Ursula Boo MD [address] [place] [address] Gastroenterology 06/07/20 Rocio Youssef PA-C [address] [address] Physician Batch Unloader Gastroenterology 06/07/20 Emeterio Valencia MD [address] [place] [address] Clinician Pulmonary Disease 06/20/20 08/22/25 Diana Coppola MD [address] [place] [phone] Internal Medicine 03/22/25 Aparna Chang MD [address] [place] [phone] Physician Pulmonary Disease 08/23/25 documented as of this encounter
--- OUTSIDE RECORDS SUMMARY | 2025-10-03 11:52 | XMS_ITS | Encounter Summary ---
Author Organization [facility] Address [address] [place] [address] Care Team Providers Care Burglar Alarm Inspector Name Role Phone Jace Blake MD Primary Care Provider Provider, Rachid GARCIA Unavailable Unavaila Andres Topete MD Unavailable [phone] Aki Ross MD Unavailable [phone] Ursula Boo MD Unavailable Rocio Youssef PA-C Unavailable Emeterio Valencia MD Unavailable Diana Coppola MD Unavailable Pcp, No Primary Care Provider Unavailabl e Aparna Chang MD Unavailable + [phone] Encounter Details Date Type Department Care Team (Late st Contact Info) Description 02/24/2020 Scanned Document GENERIC EXTERNAL DATA DEPARTMENT Provider, External, [address] [place] [address] Social History Tobacco Use Types Packs/Day Years [...] documented as of this encounter Care Teams Burglar Alarm Inspector Relationship Specialty Start Date End Date Jace Blake MD [address] [place] [address] PCP - General Psychiatry, General 05/04/17 07/16/25 Pcp, No PCP - General General Medicine 07/17/25 Provider, MD Rachid 04/27/17 Andres Lakhani MD [address] [place] [address] Wallpaper Hanger Cardiology 07/08/19 Aki Ross MD [address] [place] [address] Primary Wallpaper Hanger Cardiovascular Disease 07/08/19 Ursula Boo MD [address] [place] [address] Gastroenterology 06/07/20 Rocio Youssef PA-C [address] [facility] 4 [place] [address] Physician Sewer Pipe Cleaner Gastroenterology 06/07/20 Emeterio Valencia MD [address] [place] [address] Clinician Pulmonary Disease 06/20/20 08/22/25 Diana Coppola MD [address] [place] [phone] Internal Medicine 03/22/25 Aparna Chang MD [address] [place] [phone] Physician Pulmonary Disease 08/23/25 documented as of this encounter
--- OUTSIDE RECORDS SUMMARY | 2025-10-03 11:52 | XMS_ITS | Encounter Summary ---
Author Organization [facility] Address [address] [place] [address] Care Team Providers Care National Flatbed Truck Driver Name Role Phone Jace Blake MD Primary Care Provider Provider, Rachid GARCIA Unavailable Unavaila Andres Topete MD Unavailable [phone] Aki Ross MD Unavailable [phone] Ursula Boo MD Unavailable Rocio Youssef PA-C Unavailable Emeterio Valencia MD Unavailable Diana Coppola MD Unavailable Pcp, No Primary Care Provider Unavailabl e Aparna Chang MD Unavailable + [phone] Encounter Details Date Type Department Care Team (Late st Contact Info) Description 06/20/2020 Scanned Document [facility] [place] [address] [place] [phone] Provider, External, [address] [place] [address] Social History Tobacco Use Types Packs/Day Years [...] documented as of this encounter Care Teams National Flatbed Truck Driver Relationship Specialty Start Date End Date Jace Blake MD [address] [place] [address] PCP - General Psychiatry, General 05/04/17 07/16/25 Pcp, No PCP - General General Medicine 07/17/25 ProviderRachid MD 04/27/17 Andres Lakhani MD [address] [place] [address] Motion Graphics Artist Cardiology 07/08/19 Aki Ross MD [address] [place] [address] Primary Motion Graphics Artist Cardiovascular Disease 07/08/19 Ursula Boo MD [address] [address] Gastroenterology 06/07/20 Rocio Youssef PA-C [address] [address] Physician Fiber Optic Splicer Gastroenterology 06/07/20 Emeterio Valencia MD [address] [place] [address] [address] Clinician Pulmonary Disease 06/20/20 08/22/25 Diana Coppola MD [address] [place] [phone] Internal Medicine 03/22/25 Aparna Chang MD [address] [place] [phone] Physician Pulmonary Disease 08/23/25 documented as of this encounter
--- OUTSIDE RECORDS SUMMARY | 2025-10-03 11:52 | XMS_ITS | Encounter Summary ---
Author Organization [facility] Address [address] [place] [address] Care Team Providers Care Tree Expert Name Role Phone Jace Blake MD Primary Care Provider Provider, Rachid GARCIA Unavailable Unavaila Andres Topete MD Unavailable [phone] Aki Ross MD Unavailable [phone] Ursula Boo MD Unavailable Rocio Youssef PA-C Unavailable Emeterio Valencia MD Unavailable Diana Coppola MD Unavailable Pcp, No Primary Care Provider Unavailabl e Aparna Chang MD Unavailable + [phone] Encounter Details Date Type Department Care Team (Late st Contact Info) Description 05/04/2025 Scanned Document [facility] [place] [address] [address] Aki Ross MD [address] [place] [address] Social History Tobacco Use Types Packs/Day [...] Last Indicated Resolved Time R/O Gastrointestinal Infection 09/12/2025 09/12/2025 09/13/2025 10:29 PM EDT R/O Gastrointestinal Infection 09/12/2025 09/12/2025 09/17/2025 10:28 PM EDT documented as of this encounter Care Teams Tree Expert Relationship Specialty Start Date End Date Jace Blake MD [address] [place] [address] PCP - General Psychiatry, General 05/04/17 07/16/25 Pcp, No PCP - General General Medicine 07/17/25 Provider, MD Rachid 04/27/17 Andres Lakhani MD [address] [place] [address] Solar Sales Energy Advisor Cardiology 07/08/19 Aki Ross MD [address] [place] [address] Primary Solar Sales Energy Advisor Cardiovascular Disease 07/08/19 Ursula Boo MD [address] [place] [address] Gastroenterology 06/07/20 Rocio Youssef PA-C [address] [address] Physician Jewelry Sales Coordinator Gastroenterology 06/07/20 Emeterio Valencia MD [address] [address] Clinician Pulmonary Disease 06/20/20 08/22/25 Diana Coppola MD [address] [place] [phone] Internal Medicine 03/22/25 Aparna Chang MD [address] [place] [phone] Physician Pulmonary Disease 08/23/25 documented as of this encounter
--- OUTSIDE RECORDS SUMMARY | 2025-10-03 11:52 | XMS_ITS | Encounter Summary ---
Author Organization [facility] Address [address] [place] [address] Care Team Providers Care Salon Manager Name Role Phone Jace Blake MD Primary Care Provider Provider, Rachid GARCIA Unavailable Unavaila Andres Topete MD Unavailable [phone] Aki Ross MD Unavailable [phone] Ursula Boo MD Unavailable [phone] Rocio Youssef PA-C Unavailable Emeterio Valencia MD Unavailable Diana Coppola MD Unavailable Pcp, No Primary Care Provider Unavailabl e Aparna Chang MD Unavailable + [phone] Encounter Details Date Type Department Care Team (Late st Contact Info) Description 08/29/2020 Scanned Document [facility] [address] [place] [phone] Ursula Boo MD 5 [facility] [address] [place] [address] Social History Tobacco Use Types [...] documented as of this encounter Care Teams Salon Manager Relationship Specialty Start Date End Date Jace Blake MD [address] [place] [address] PCP - General Psychiatry, General 05/04/17 07/16/25 Pcp, No PCP - General General Medicine 07/17/25 Provider, MD Rachid 04/27/17 Andres Lakhani MD [address] [place] [address] Book Salesman Cardiology 07/08/19 Aki Ross MD [address] [place] [address] Primary Book Salesman Cardiovascular Disease 07/08/19 Ursula Boo MD [address] [address] Gastroenterology 06/07/20 Rocio Youssef PA-C [address] [address] Physician Farebox Repairer Gastroenterology 06/07/20 [place] [address] [address] Clinician Pulmonary Disease 06/20/20 08/22/25 Diana Coppola MD [address] [place] [phone] Internal Medicine 03/22/25 Aparna Chang MD [address] [place] [phone] Physician Pulmonary Disease 08/23/25 documented as of this encounter
--- OUTSIDE RECORDS SUMMARY | 2025-10-03 11:52 | XMS_ITS | Encounter Summary ---
Author Organization [facility] and [facility] Address [address] [place] [phone] Care Team Providers Care Parish Visitor Name Role Phone Jace Blake Primary Care Provider [phone] Encounter Details Date Type Department Care Team (Late st Contact Info) Description 06/23/2014 Scanned Document [facility] [address] [address] Chino Cordova MD PhD [address] [place] [phone] Social History Tobacco Use Types Packs/Day Years [...] EST Appointment [facility] - [address] [address] 6, Pft Procedure Room 10/09/2025 1:30 PM EST Appointment [facility] - [address] [address] Aparna Chang MD [address] [place] [phone] Mary Swansonayan Walk 10/09/2025 2:00 PM EST Office Visit [facility] [address] [place], [place] [phone] Keyshawn-Aparna Pereira MD [address] [place] [phone] 08/22/2026 11:00 AM EDT Follow Up [facility] at [address] [place] [address] [phone] Diana Coppola MD [address] [place] [phone] documented as of this encounter Visit Diagnoses Not on filedocumented in this encounter Care Teams Parish Visitor Relationship Specialty Start Date End Date Jace Blake DO [address] [place] [address] PCP - General Family Medicine 08/01/14 documented as of this encounter
--- OUTSIDE RECORDS SUMMARY | 2025-10-03 11:52 | XMS_ITS | Encounter Summary ---
Author Organization [facility] Address [address] [place] [address] Care Team Providers Care Landscape Supervisor Name Role Phone Jace Blake MD Primary Care Provider [phone] Provider, Rachid GARCIA Unavailable Unavaila Andres Topete MD Unavailable [phone] Aki Ross MD Unavailable [phone] Ursula Boo MD Unavailable Rocio Youssef PA-C Unavailable [phone] Emeterio Valencia MD Unavailable Diana Coppola MD Unavailable Pcp, No Primary Care Provider Unavailabl e Aparna Chang MD Unavailable + [phone] Encounter Details Date Type Department Care Team (Late st Contact Info) Description 06/20/2020 Scanned Document [facility] [address] [place] [phone] Ursula Boo MD 5 [facility] [address] [place] [address] Social History Tobacco Use Types [...] documented as of this encounter Care Teams Landscape Supervisor Relationship Specialty Start Date End Date Jace Blake MD [address] [place] [address] PCP - General Psychiatry, General 05/04/17 07/16/25 Pcp, No PCP - General General Medicine 07/17/25 Provider, MD Rachid 04/27/17 Andres Lakhani MD [address] [place] [address] Yard Cleaner Cardiology 07/08/19 Aki Ross MD [address] [place] [address] Primary Yard Cleaner Cardiovascular Disease 07/08/19 Ursula Boo MD [address] [address] Gastroenterology 06/07/20 Rocio Youssef PA-C [address] [address] Physician Online Content Developer Gastroenterology 06/07/20 [place] [address] [address] Clinician Pulmonary Disease 06/20/20 08/22/25 Diana Coppola MD [address] [place] [phone] Internal Medicine 03/22/25 Aparna Chang MD [address] [place] [phone] Physician Pulmonary Disease 08/23/25 documented as of this encounter
--- OUTSIDE RECORDS SUMMARY | 2025-10-03 11:52 | XMS_ITS | Encounter Summary ---
Author Organization [facility] Address [address] [place] [phone] Care Team Providers Care Communications Technician Name Role Phone Blake, Gary Primary Care Provider [phone] Encounter Details Date Type Department Care Team (Latest Contact Info) Description 06/24/2019 Transcribed Orders [facility] [address] [place] [address] Kenya Cortez MD [address] [place] [address] Acquired polyneuropathy (HC Code) (Primary Dx); [...] Care Team ( st Contact Info) Description 10/09/2025 12:40 PM EST Appointment [facility] - [address] [id number] 6, Pft Procedure Room 10/09/2025 1:30 PM EST Appointment [facility] - [address] [address] Aparna Chang MD [address] [place] [phone] [place], Pft Walk 10/09/2025 2:00 PM EST Office Visit [facility] [address] [address] Aparna Chang MD [address] [place] [phone] 08/22/2026 11:00 AM EDT Follow Up [facility] Failure Program at [address] [place] [address] Diana Coppola MD [address] [place] [phone] documented as of this encounter Procedures Procedure [...] analytical performance characteristics have been determined by [employer] [place], [place]. It has not been cleared or approved by the U.S. Food and Drug Administration. This assay has been validated pursuant to the CLIA regulations and is used for clinical purposes. Test Performed at: [facility] [facility] [address] [place] [address] Teodoro Shore M.D., Ph.D.,Director of Laboratories Blood Venipuncture / Unknown 06/24/2019 12:54 PM EDT 06/24/2019 1:52 PM EDT Kenya Cortez MD LAB BLOOD ORDERABLES Final Resul t Performing Organization Address City/[facility]/ZIP Co de Phone Number [facility] * Vitamin B12 (06/24/2019 12:54 PM EDT) Pathologist [facility] Vitamin B12 880 232-1,245 pg/mL 06/24/2019 2:36 PM EDT [facility] Comment: As of 2019, this assay is now being performed on the Cassidy Melyssa 8000. Please note the change in reference range. Blood Venipuncture / Unknown 06/24/2019 12:54 PM EDT 06/24/2019 1:52 PM EDT Kenya Cortez MD LAB BLOOD ORDERABLES Final Resul t [facility] [address] [place] [address] * Immunoglobulin M (06/24/2019 12:54 PM EDT) Immunoglobulin M 190 35 - 263 mg/dL 06/24/2019 4:42 PM EDT [facility] Blood Venipuncture / Unknown 06/24/2019 12:54 PM EDT 06/24/2019 1:52 PM EDT Kenya Cortez MD LAB BLOOD ORDERABLES Final Resul t Performing Organization Address [facility] de Phone Number [facility] [address] [place] [address] * Immunoglobulin G (06/24/2019 12:54 PM EDT) Immunoglobulin G 1,260 768-1,632 mg/dL 06/24/2019 4:42 PM EDT [facility] Blood Venipuncture / Unknown 06/24/2019 12:54 PM EDT 06/24/2019 1:52 PM EDT Result Benedict Cortez MD LAB BLOOD ORDERABLES Final Resul t Performing Organization Address [facility] de Phone Number [facility] [address] [place] [address] * Immunoglobulin A (06/24/2019 12:54 PM EDT) Immunoglobulin A 372 68 - 408 mg/dL 06/24/2019 4:42 PM EDT [facility] Blood Venipuncture / Unknown 06/24/2019 12:54 PM EDT 06/24/2019 1:52 PM EDT Result Benedict Cortez MD LAB BLOOD ORDERABLES Final Resul t Performing Organization Address [facility] de Phone Number [facility] [address] [place] [address] documented in this encounter Visit Diagnoses Diagnosis Acquired polyneuropathy- Primary Unspecified hereditary and idiopathic peripheral neuropathy Neuropathy (HC Code) Mononeuritis of unspecified site documented in this encounter Care Teams Communications Technician Relationship Specialty Start Date End Date Jace Blake DO [address] [place] [phone] PCP - General Family Medicine 08/01/14 documented as of this encounter
--- OUTSIDE RECORDS SUMMARY | 2025-10-03 11:52 | XMS_ITS | Encounter Summary ---
Author Organization [facility] Address [address] [place] [address] Care Team Providers Care Early Breastfeeding Care Specialist Name Role Phone Jace Blake MD Primary Care Provider [phone] Provider, Rachid GARCIA Unavailable Unavaila Andres Topete MD Unavailable [phone] Aki Ross MD Unavailable [phone] Ursula Boo MD Unavailable [phone] Rocio Youssef PA-C Unavailable Emeterio Valencia MD Unavailable Diana Coppola MD Unavailable Pcp, No Primary Care Provider Unavailabl e Aparna Chang MD Unavailable + [phone] Encounter Details Date Type Department Care Team (Late st Contact Info) Description 05/03/2018 Scanned Document [facility] [place] [address] [place] [address] Provider, External, [address] [place] [address] Social History Tobacco Use Types Packs/Day Years [...] documented as of this encounter Care Teams Early Breastfeeding Care Specialist Relationship Specialty Start Date End Date Jace Blake MD [address] [place] [address] PCP - General Psychiatry, General 05/04/17 07/16/25 Pcp, No PCP - General General Medicine 07/17/25 Provider, MD Rachid 04/27/17 Andres Lakhani MD [address] [place] [address] Bonbon Cream Warmer Cardiology 07/08/19 Aki Ross MD [address] [place] [address] Primary Bonbon Cream Warmer Cardiovascular Disease 07/08/19 Ursula Boo MD [address] [place] [address] Gastroenterology 06/07/20 Rocio Youssef PA-C [address] [address] Physician Electronic Equipment Installer Gastroenterology 06/07/20 Emeterio Valencia MD [address] [address] Clinician Pulmonary Disease 06/20/20 08/22/25 Diana Coppola MD [address] [place] [phone] Internal Medicine 03/22/25 Aparna Chang MD [address] [place] [phone] Physician Pulmonary Disease 08/23/25 documented as of this encounter
--- OUTSIDE RECORDS SUMMARY | 2025-10-03 11:52 | XMS_ITS | Encounter Summary ---
Author Organization [facility] Address [address] [place] [address] Care Team Providers Care Produce Wrapper Name Role Phone Jace Blake MD Primary Care Provider Provider, Rachid GARCIA Unavailable Unavaila Andres Topete MD Unavailable [phone] Aki Ross MD Unavailable [phone] Ursula Boo MD Unavailable [phone] Rocio Youssef PA-C Unavailable Emeterio Valencia MD Unavailable Diana Coppola MD Unavailable Pcp, No Primary Care Provider Unavailabl e Aparna Chang MD Unavailable + [phone] Encounter Details Date Type Department Care Team (Late st Contact Info) Description 04/04/2025 Scanned Document [facility] [address] [place] [address] Ursula Boo MD 5 [facility] [address] [place] [address] Social History Tobacco Use Types [...] documented as of this encounter Care Teams Produce Wrapper Relationship Specialty Start Date End Date Jace Blake MD [address] [place] [address] PCP - General Psychiatry, General 05/04/17 07/16/25 Pcp, No PCP - General General Medicine 07/17/25 Provider, MD Rachid 04/27/17 Andres Lakhani MD [address] [place] [address] Graphics Artist Cardiology 07/08/19 Aki Ross MD [address] [place] [address] Primary Graphics Artist Cardiovascular Disease 07/08/19 Ursula Boo MD [address] [place] [address] Gastroenterology 06/07/20 Rocio Youssef PA-C [address] [address] Physician Gate Clerk Gastroenterology 06/07/20 Emeterio Valencia MD [address] [address] Clinician Pulmonary Disease 06/20/20 08/22/25 Diana Coppola MD [address] [place] [phone] Internal Medicine 03/22/25 Aparna Chang MD [address] [place] [phone] Physician Pulmonary Disease 08/23/25 documented as of this encounter
--- OUTSIDE RECORDS SUMMARY | 2025-10-03 11:52 | XMS_ITS | Data Portability ---
Author Organization [facility] Address [address] [place] [address] Care Team Providers Care Assignment Desk Assistant Name Role Phone GORGE VELEZ Referring Provider TIMMY AGEE Referring Provider Assessment [...] to speak with a Radiol ogist concer [facility] this exam, please call [phone] . SIN MCNAIR MD DICTAT ING PHYSIC JOSHUA APPROV ING PHYSIC JOSHUA MCNAIR MD 2019 01:46 PM 0 01:41 PM Adan arias Copy to: JEOVANNY MONTGOMERY MD [id number] [facility] Scheduling Dept (Imaging) [place], [address], 08/20/2023 23:04:51 11/26/19 21 11/26/2020 US, abdom [...] Thank you for trusti ng Radiol ogy [facility] with your referr al. If you are a Health Care Provid er and would like to speak with a Radiol ogist concer jorge this exam, please call . MARIA ELENA MARCUS ND, MD DICTAT ING PHYSIC JOSHUA APPROV ING PHYSIC JOSHUA MARIA ELENA MARCUS ND, MD 2020 09:27 AM 09:27 AM Adan arias Copy to: JEOVANNY MONTGOMERY MD [id number] [facility] Scheduling Dept (Imaging) [place], [address], 08/20/2023 23:04:51 12/12/19 21 12/10/2020 US, thyro id No observ ation record ed. [id number] [facility] Imaging All Locations, [place], [address], 11/04/2024 19:35:31 02/21/20 21 02/15/2021 US, he x, leif s, gordo brantley, limit ed Workst ation: [...] al. If you are a Health Care [facility] er and like to speak with a Radiol ogist concer jorge this exam, please call . KEATON Eason MD DICTAT ING PHYSIC JOSHUA APPROV ING PHYSIC JOSHUA COLBY GALINDO MD 2020 01:48 PM CHG/ 21 04:28 PM Adan arias Copy to: [id number] [facility] Scheduling Dept (Imaging) [place], [address], 08/20/2023 23:04:51 Result Notes Documentation Provider Name and Address Organization Details Recorded Time Ct, Orbit / Sella / Posterior Fossa / Ear, W/o Contrast : Workstation: [id number] EXAM: UNENHANCED CT TEMPORAL BONES INDICATION: Asymmetric hearing loss right. COMPARISON: None. TECHNIQUE: Computed tomographic imaging of the temporal bones performed without nonionic contrast with axial and coronal imaging. All CT scans are performed using radiation dose reduction techniques. Technical factors are evaluated and adjusted to ensure appropriate moderation of exposure. Automated dose management technology is applied to adjust the radiation dose to minimize exposure while achieving a diagnostic-quality image. FINDINGS: Right: The tympanic membrane does not appear thickened. The middle ear cavity and mastoids appear normally pneumatized. Ossicular chain appears intact. Labyrinthine structures appear normal. Left: The tympanic membrane does not appear thickened. The middle ear cavity appear normally pneumatized. There is opacification of a few inferior left mastoid air cells. Ossicular chain appears intact. Labyrinthine structures appear normal. IMPRESSION: 1. Normal right temporal bone. 2. Mild left mastoid mucosal thickening without acute or coalescent mastoiditis, and with the left appearing otherwise normal. This encounter occurred during a Public Health Emergency (PHE), as defined by law, due to respiratory-transmitted infectious disease. There were significant additional practice expenses related to activities required to safely provide medical services to patients in person during a PHE over and above those usually included. This includes providing instructions on social distancing during the visit, checking patients for symptoms upon arrival, applying and removal of PPE, and performing additional cleaning of the public spaces, imaging rooms, equipment, and supplies. Additionally, there were increased expenses related to cleaning supplies, hand sanitizers, disinfecting wipes, sprays, cleansers, and PPE. Thank you for trusting [facility] with your referral. If you are a Health Care Provider and would like to speak with a Radiologist concerning this exam, please call [phone]. SIN MCNAIR MD DICTATING PHYSICIAN APPROVING PHYSICIAN SIN MCNAIR MD 11/07/2020 01:46 PM CW/11/07/2020 01:41 PM Courtesy Copy to: JEOVANNY RAMÍREZ MD Not Available Critical access hospital 08/20/2023 23: 30:15 Problems Name Problem SNOMED Code Status Onset Date Resolution Date Notes Provider Name and Address Organization Details Recorded Time Thyroid nodule 602894410 Active 2013 Violeta pino [facility], [facility] 9 08:42:01 Pulmonary hypertensi on 00888291 [facility] [employer], [facility] 9 08:42:01 Chronic diastolic heart failure 454378509 [facility] 9 08:42:01 Atrial fibrillati on 50424703 [facility] 9 08:42:02 Iron deficiency anemia 06745540 Active 2014 [facility] [employer], [facility] 9 08:42:01 Irritable bowel syndrome with diarrhea 818958967 Active 2014 [facility] [employer], [facility] 9 08:42:02 Hypertensi ve disorder 59564937 [facility] 9 08:42:01 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 Violeta pino [facility] [employer], [facility] 9 08:42:02 Cardiac arrhythmia 911966173 Active 2014 [facility] [employer], [facility] 9 08:42:01 Memory impairment 011670759 Active 2015 Violeta pino [facility] [employer], [facility] 9 08:42:01 Left carotid artery stenosis 8957833175775 03 Active 2015 Violeta pino [facility] [employer], [facility] 9 08:42:01 Long-term current use of anticoagul ant 224920932 Active 2016 Violeta pino [facility] [employer], [facility] 9 08:42:02 Chronic atrial fibrillati on 700115238 Active 2016 Violeta pino [facility], [facility] 9 08:42:02 Coronary arterioscl erosis in habematolel artery 6499113618039 Active 2017 Violeta pino [facility], [facility] 9 08:42:01 Neuropathy 282444638 Active 2017 Violeta pino [facility], [facility] 9 08:42:01 Insomnia 266288887 Active 2017 Not Available Critical [facility] hospital 1 18:41:07 Single coronary vessel disease 602234526 Active 2017 Not Available [facility] 1 18:41:07 Gastroesop hageal reflux disease 676249515 Active 2017 Not Available [facility] hospital 1 18:41:07 Iron deficiency 14716754 Active 2017 Not Available [facility] hospital 1 18:41:07 Cardiac pacemaker in situ 231892507 Active 2017 Not Available [facility] hospital 1 18:41:07 Anxiety 92020518 Active 2017 Not Available [facility] hospital 1 18:41:07 Hyperlipid emia 31315463 Active 2017 Not Available Critical access hospital 1 18:41:08 Paraparesi s 5848483 Active 2017 Violeta pino [facility] [employer], [facility] 9 08:42:02 Computed tomography result abnormal 084358849 Active 2017 Violeta pino [facility], [facility] 9 08:42:02 Osteoarthr itis 996942576 Active 2018 Violeta pino [facility] [employer], [facility] 9 08:42:01 Spinal stenosis of lumbar region 21842515 Active 2018 Violeta pino [facility], [facility] 9 08:42:01 Idiopathic peripheral neuropathy 62921284 Active 2018 Violeta pino [facility], [facility] 9 08:42:01 History of depression 146488320 Active 2018 Not Available [facility] 1 18:41:07 Congestive heart failure 11066468 Active 2018 35% EF Not Available [facility] hospital 1 18:41:07 Essential hypertensi on 22082128 Active 2018 Not Available [facility] 1 18:41:08 Anemia 665797582 Active 2019 Not Available [facility] hospital 1 18:41:07 Multiple nodules of lung 553220370 Active 2019 Not Available [facility] hospital 1 18:41:07 Cardiomyop athy 50732440 Active 2019 Not Available Critical access hospital 1 18:41:08 Problem Notes None recorded. Procedures Surgical History Date Name Laterality Status Provider Name and Address Organization Details Recorded Time procedure on neck completed HUY MENDIOLA [facility], [facility] 01/13/2019 10:10:31 Appendectomy completed HUYTUSHAR MENDIOLA [facility], [facility] 01/13/2019 10:10:39 Tonsillectomy completed HUY HORENETTA [facility] 01/13/2019 10:11:03 suture of rectum completed HUY MENDIOLA [facility], [facility] 01/13/2019 10:11:28 destruction of lesion completed HUY MENDIOLA [facility], [facility] 01/13/2019 10:12:07 Pacemaker implantation completed HUY MENDIOLA [facility], [facility] 01/13/2019 10:12:27 Hysterectomy completed Darlene Velasquez [facility], [facility] 02/07/2014 09:23:46 Back surgery completed Darlene Velasquez [facility], [facility] 02/07/2014 09:23:46 Knee surgery completed Violeta Rascon [facility], [facility] 12/06/2019 08:25:31 Other completed Darlene Velasquez [facility], [facility] 02/07/2014 09:23:46 Imaging Results None recorded. Procedure Notes None recorded. Medical Equipment None Reported. Allergies Allergen ID Allergen Name Allergen Category Reaction Reaction Severity Criticality Documentation Date Start Date Code Code System Note Provider Name and Address Organization Details Recorded Time 443614 Iodinated contrast media (substanc e) medicatio n Not available Not available Not available 02/07/2014 97111 2003 SNOMED HUY pino [facility], [facility] 9 10:09:22 Medications Name Sig Start [...] Not Available Vitals Date Recorded Body height Oxygen saturation Oxygen saturation in Arterial blood by Pulse oximetry Heart rate Respiratory rate Body temperature Systolic And Diastolic Provider Name and Address Organization Details Last Updated DateTime 1 177.8 cm 99 % 99 % 68 /min 16 /min 97.8 [degF] 110/70 mm[Hg] Not Available Critical access hospital 18:35:19 Date Recorded Body mass index (BMI) Body height Oxygen saturation Oxygen saturation in Arterial blood by Pulse oximetry Heart rate Respiratory rate Body temperature Body weight Systolic And Diastolic Provider Name and Address Organization Details Last Updated DateTime 1 32.4 kg/m2 177.8 cm 99 % 99 % 88 /min 20 /min 98.4 [degF] 342779. 88 g 116/70 mm[Hg] Not Available [facility] 1 18:35:19 Date Recorded Body height Heart rate Respiratory rate Body temperature Systolic And Diastolic Provider Name and Address Organization Details Last Updated DateTime 1 177.8 cm 120 /min 18 /min 98.4 [degF] 166/84 mm[Hg] Not Available Critical [facility] hospital 18:35:19 Date Recorded Body mass index (BMI) Body height Oxygen saturation Oxygen saturation in Arterial blood by Pulse oximetry Heart rate Respiratory rate Body temperature Body weight Systolic And Diastolic Provider Name and Address Organization Details Last Updated DateTime 0 32.6 kg/m2 177.8 cm 98 % 98 % 86 /min 16 /min 97.9 [degF] 816182. 47 g 106/68 mm[Hg] Not Available [facility] 1 18:35:19 Social History Question Answer Notes LastModified by Organizat ion Details LastModified Time Tobacco Smoking Status Former Smoker Darlene pino [place] [facility], [facility] 02/07/2014 09:23:45 Do You Have An Advance Directive? No [email or web address] Information not available 02/07/2014 How Much Tobacco Do You Chew? None [email or web address] Information not available 02/07/2014 Which Illicit Or Recreational Drugs Have You Used? No [email or web address] Information not available 02/07/2014 Education 4 Year College Information not available 02/07/2014 Alcohol Use 1-2 Per Week [email or web address] Informati on not available 02/07/2014 Year Quit Tobacco Use 04/23/2012 [email or web address] Information not available 02/07/2014 Marital Status [email or web address] Informat ion not available 02/07/2014 What Was The Date Of Your Most Recent Tobacco Screening? 02/01/2019 Information not available 06/17/2019 At What Age Did You Start Smoking Tobacco? 23 [email or web address] Information not available 02/07/2014 How Much Tobacco Do You Smoke? 1 PPD [email or web address] Information not available 02/07/2014 How Many Years Have You Smoked Tobacco? 40 [email or web address] Information not available 02/07/2014 Sex: Female Functional Status Question Answer Note LastModified by Organizat ion Details LastModified Time Do you or have you ever used smokeless tobacco? 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 Never used electronic cigarettes Information not available 11/01/2019 What is your exercise level? None [email or web address] Information not available 02/07/2014 Mental Status None [...] Influenza, split virus, quadrivalent, preservative 9 completed KAPIL [facility], [facility] 10/27/2019 08:29:47 COVID-19, mRNA, LNP-S, PF, 100 mcg/0.5mL dose or 50 mcg/0.25mL dose 1 completed Not Available [facility] 10/18/2021 18:55:54 COVID-19, mRNA, LNP-S, PF, 100 mcg/0.5mL dose or 50 mcg/0.25mL dose 1 completed Not Available [facility] 10/18/2021 18:55:54 Influenza, split virus, quadrivalent, preservative 0 completed Not Available [facility] 10/18/2021 18:55:54 Pneumococcal conjugate PCV 13 0 completed Not Available Critical access hospital 10/18/2021 18:55:54 Past Encounters Encounter ID Performer Location Encounter Start Date Encounter Closed Date Diagnosis/Indication Diagnosis SNOMED-CT Code Diagnosis ICD10 Code Diagnosis IMO Codes Diagnosis Note [id number] Mychal Franco MD [facility] [address] [place] [address] 02/07/2014 08:48:09 02/07/2014 10:14:47 Hyperthyroidism 24539060 02/01/14 TSH <0.006 FT4 3.11 check thyroid scan , continue metoprolol 50 mg/day education provided, ? TMNG vs Graves Vs thyroiditi s pt clinically moldly hyperthyro id Multinodular goiter 624129008 01/23/14 thyroid US: MNG with right dominant lesion 1 cm ( radiologis t recommends FNA) pending scan will FNA the right lesion [id number] Mychal Franco MD [facility] [address] [place] [address] 02/20/2014 09:21:33 02/20/2014 11:25:17 Hyperthyroidism 94082397 02/01/14 TSH <0.006 FT4 3.11 check thyroid scan , continue metoprolol 50 mg/day education provided, ? TMNG vs Graves Vs thyroiditi s pt clinically moldly hyperthyro id 02/09/14 thyroid scan: 4 hour 1.4% 24 hour 1.9% s/o thyroiditi s monitor the function, repeat labs in 3 weeks , continue metoprolol 50 mg /day [id number] MD KIARA Silva [facility] [address] [place] [address] 03/13/2014 09:13:30 03/13/2014 10:41:33 Hyperthyroidism 25661447 02/01/14 TSH <0.006 FT4 3.11 check thyroid [...] endo, pt understand s RTO when back [id number] Gorge Velez DO [place] [address] [place] [address] [address] 01/13/2019 09:32:41 01/13/2019 14:12:23 Anti-nuclear factor detected 363379102 R76.8 and DS DNA + Osteoarthritis 651265269 M19.90 Idiopathic peripheral neuropathy 60333282 G60.9 Spinal chuck nosis of lumbar region 89857351 M48.897 [id number] Gorge Velez DO [facility] [address] [place] [address] 02/01/2019 08:37:35 02/01/2019 09:57:36 Idiopathic peripheral neuropathy 32540243 G60.9 Spinal chuck nosis of lumbar region 35935633 M48.061 Osteoarthritis 763701818 M19.90 Anti-nucle ar factor detected 306737654 R76.8 and DS DNA + As well as some cardiolipi n antibodies IgA and IgM Raised ant inuclear antibody 200619421 R76.0 [id number] Ben Alberto MD [place] [address] [place] [address] [address] 10/27/2019 07:55:59 10/27/2019 09:47:34 Hyperparathyroidism 01191107 E21.3 Laboratory evaluation reviewed and discussed with the patient.No rmal calcium metabolism discussed with the patient including the role of PTH and vitamin DDifferent ial diagnosis discussed with the patient.Co unseled on appropriat e work upLabs ordered as below.Foll ow up with results. [id number] Ben Alberto MD [facility] [id number] [place] [address] 11/01/2019 08:35:27 11/01/2019 09:29:30 Primary hyperparathyroidism 31064275 E21.0 Has picture of mixed hyperparat hyroidism. [...] option depending on patient's preference Secondary hyperparathyroidism 48322820 E21.1 Has vitamin D deficiency Recommend to replenish vitamin D stores.At this point start Drisdol once a weekRisk factors of vitamin D deficiency discussed. Vitamin D deficiency 347 34171 E55.9 Will replace please see above. Hypophosphatemia 6598126 E83.39 Please see above. [id number] MARIS Higgins [facility] [address] [place] [address] 12/06/2019 08:17:33 12/06/2019 09:04:56 Hyperparathyroidism 21088914 E21.3 [facility] refer [facility] for parathyro[facility] dectomy Hypercalcemia 93768622 E 83.52 [facility] to [facility] Thyroid nodule 839260343 E04.1 Will monitor with ultrasound annually. [id number] Jeovanny Ramírez MD [facility] [address] [place] [address] 10/06/2018 00:00:00 02/06/2019 15:54:54 [id number] Jeovanny Ramírez MD [facility] [address] [place] [address] 12/20/2018 00:00:00 02/06/2019 16:01:43 [id number] Jeovanny Ramírez MD [facility] [address] [place] [address] 09/27/2019 00:00:00 09/27/2019 23:26:03 [id number] Jeovanny Ramírez MD [facility] [address] [place] [address] 12/06/2019 00:00:00 12/25/2019 18:18:38 [id number] Jeovanny Ramírez MD [facility] [address] [place] [address] 03/16/2020 00:00:00 03/16/2020 12:21:43 [id number] Jeovanny Ramírez MD [facility] [address] [place] [address] 10/25/2020 00:00:00 10/25/2020 22:52:20 [id number] Jeovanny Ramírez MD [facility] [address] [place] [address] 12/11/2020 00:00:00 12/30/2020 10:08:18 [id number] Jeovanny Ramírez MD [facility] [address] [place] [address] 02/15/2021 00:00:00 02/23/2021 09:49:04 [id number] Jeovanny Ramírez MD [facility] [address] [place] [address] 09/03/2021 00:00:00 09/03/2021 23:26:37 Health Concerns Section Related Observation LastModified by Organization Detai ls LastModified Time None Recorded Concern Status LastModified by Organization Details LastModified Time None Recorded Advance Directives Directive N: Payers Insurance Date Sequence Insurance Name Policy Number Policy Fields Covered Member ID Fields Member ID Guarantor Name 03/10/2023 1 [place] Kimberly Naylor, Clarence [id number] Kimberly Naylor 03/10/2023 2 [place] [id number] Kimberly Naylor [id number] Kimberly Naylor OBGyn Episode No OBEpisode recorded.
--- OUTSIDE RECORDS SUMMARY | 2025-10-03 11:52 | XMS_ITS | Encounter Summary ---
Author Organization [facility]ly [facility] Address [address] [place] [address] Care Team Providers Care Prison Classification Counselor Name Role Phone Jace Blake MD Primary Care Provider [phone] Provider, Rachid GARCIA Unavailable Unavaila Andres Topete MD Unavailable [phone] Aki Ross MD Unavailable [phone] Ursula Boo MD Unavailable Rocio Youssef PA-C Unavailable Emeterio Valencia MD Unavailable Diana Coppola MD Unavailable Pcp, No Primary Care Provider Unavailabl e Aparna Chang MD Unavailable + [phone] Encounter Details Date Type Department Care Team (Late st Contact Info) Description 05/12/2018 Scanned Document [facility] [place] [address] [place] [address] Provider, External, [address] [place] [address] Social History Tobacco Use Types Packs/Day Years [...] documented as of this encounter Care Teams Prison Classification Counselor Relationship Specialty Start Date End Date Jace Blake MD [address] [place] [address] PCP - General Psychiatry, General 05/04/17 07/16/25 Pcp, No PCP - General General Medicine 07/17/25 Provider, MD Rachid 04/27/17 Andres Lakhani MD [address] [place] [address] Washer And Capper Machine Operator Cardiology 07/08/19 Aki Ross MD [address] [place] [address] Primary Washer And Capper Machine Operator Cardiovascular Disease 07/08/19 Ursula Boo MD [address] [place] [address] Gastroenterology 06/07/20 Rocio Youssef PA-C [address] [address] Physician [address] Jumper Gastroenterology 06/07/20 Emeterio Valencia MD [address] [address] Clinician Pulmonary Disease 06/20/20 08/22/25 Diana Coppola MD [address] [place] [phone] Internal Medicine 03/22/25 Aparna Chang MD [address] [place] [phone] Physician Pulmonary Disease 08/23/25 documented as of this encounter
--- OUTSIDE RECORDS SUMMARY | 2025-10-03 11:52 | XMS_ITS | Encounter Summary ---
Author Organization [facility] Address [address] [place] [address] Care Team Providers Care Guest Attendant Name Role Phone Jace Blake MD Primary Care Provider [phone] Provider, Rachid GARCIA Unavailable Unavaila Andres Topete MD Unavailable [phone] Aki Ross MD Unavailable [phone] Ursula Boo MD Unavailable [phone] Rocio Youssef PA-C Unavailable Emeterio Valencia MD Unavailable Diana Coppola MD Unavailable Pcp, No Primary Care Provider Unavailabl e Aparna Chang MD Unavailable + [phone] Encounter Details Date Type Department Care Team (Late st Contact Info) Description 08/09/2020 Scanned Document [facility] [address] [place] [phone] Ursula Boo MD [facility] [address] [place] [address] Social History Tobacco Use Types [...] documented as of this encounter Care Teams Guest Attendant Relationship Specialty Start Date End Date Jace Blake MD [address] [place] [address] PCP - General Psychiatry, General 05/04/17 07/16/25 Pcp, No PCP - General General Medicine 07/17/25 Provider, MD Rachid 04/27/17 Andres Lakhani MD [address] [place] [address] Wedger Cardiology 07/08/19 Aki Ross MD [address] [place] [address] Primary Wedger Cardiovascular Disease 07/08/19 Ursula Boo MD [address] [address] Gastroenterology 06/07/20 Rocio Youssef PA-C [address] [address] Physician Nurse Practitioner Home Assessments Gastroenterology 06/07/20 [place] [address] [address] Clinician Pulmonary Disease 06/20/20 08/22/25 Diana Coppola MD [address] [place] [phone] Internal Medicine 03/22/25 Aparna Chang MD [address] [place] [address] Physician Pulmonary Disease 08/23/25 documented as of this encounter
--- OUTSIDE RECORDS SUMMARY | 2025-10-03 11:52 | XMS_ITS | Encounter Summary ---
Author Organization [facility] Address [address] [place] [address] Care Team Providers Care Aircraft Refueler Name Role Phone Jace Blake MD Primary Care Provider Provider, Rachid GARCIA Unavailable Unavaila Andres Topete MD Unavailable [phone] Aki Ross MD Unavailable [phone] Ursula Boo MD Unavailable Rocio Youssef PA-C Unavailable Emeterio Valencia MD Unavailable Diana Coppola MD Unavailable Pcp, No Primary Care Provider Unavailabl e Aparna Chang MD Unavailable + [phone] Encounter Details Date Type Department Care Team (Late st Contact Info) Description 08/21/2020 Scanned Document [facility] [address] [place] [phone] Tl Mancera, SITE SURVEYOR 5 [facility] 2 [place] [address] Social History Tobacco Use Types [...] as of this encounter Care Teams Aircraft Refueler Relationship Specialty Start Date End Date Jace Blake MD [address] [place] [address] PCP - General Psychiatry, General 05/04/17 07/16/25 Pcp, No PCP - General General Medicine 07/17/25 Provider, MD Rachid 04/27/17 Andres Lakhani MD [address] [place] [address] Television News Photographer Cardiology 07/08/19 Aki Ross MD [address] [place] [address] Primary Television News Photographer Cardiovascular Disease 07/08/19 Ursula Boo MD [address] [address] Gastroenterology 06/07/20 Rocio Youssef PA-C [address] [address] Physician Commercial Technician Gastroenterology 06/07/20 [place] [address] [address] Clinician Pulmonary Disease 06/20/20 08/22/25 Diana Coppola MD [address] [place] [phone] Internal Medicine 03/22/25 Aparna Chang MD [address] [place] [phone] Physician Pulmonary Disease 08/23/25 documented as of this encounter
--- OUTSIDE RECORDS SUMMARY | 2025-10-03 11:53 | XMS_ITS | Encounter Summary ---
Author Organization [facility] Address [address] [place] [address] Care Team Providers Care Maple Products Supervisor Name Role Phone Blake, Gary Primary Care Provider [phone] Encounter Details Date Type Department Care Team (Late st Contact Info) Description 03/27/2021 Scanned Document INTERFACE DEFAULT [address] [place] [address] System, Provider Not In Social History Tobacco [...] EST Appointment [facility] - [address] [address] 6, Pft Procedure Room 10/09/2025 1:30 PM EST Appointment [facility] - [address] [address] Aparna Chang MD [address] [place] [address], [place] [address] Sudeep Swanson Walk 10/09/2025 2:00 PM EST Office Visit [facility] [address] 3rd [facility] [place] [address] Aparna Chang MD [address] [place] [address], [place] [phone] 08/22/2026 11:00 AM EDT Follow Up [facility] at [address] [place] [address], [place] [address] Diana Coppola MD [address] [place] [address], [place] [phone] documented as of this encounter Visit Diagnoses Not on filedocumented in this encounter Additional Health Concerns Assessment Noted Time PHQ-9 Depression Total Score: 0 10/03/20 20 12:10 PM EST documented as of this encounter Care Teams Maple Products Supervisor Relationship Specialty Start Date End Date Jace Blake DO [address] [place] [address] PCP - General Family Medicine 08/01/14 documented as of this encounter
--- OUTSIDE RECORDS SUMMARY | 2025-10-03 11:53 | XMS_ITS | Encounter Summary ---
Author Organization [facility] Address [address] [place] [address] Care Team Providers Care Methods Examiner Name Role Phone Jace Blake MD Primary Care Provider Provider, Rachid GARCIA Unavailable Unavaila Andres Topete MD Unavailable [phone] Aki Ross MD Unavailable [phone] Ursula Boo MD Unavailable Rocio Youssef PA-C Unavailable Emeterio Valencia MD Unavailable Diana Coppola MD Unavailable Pcp, No Primary Care Provider Unavailabl e Aparna Chang MD Unavailable + [phone] Encounter Details Date Type Department Care Team (Late st Contact Info) Description 06/08/2020 Scanned Document [facility] [address] [place] [phone] Ursula Boo MD 5 [facility] [address] [place] [address] Social History Tobacco Use Types [...] documented as of this encounter Care Teams Methods Examiner Relationship Specialty Start Date End Date Jace Blake MD [address] [place] [address] PCP - General Psychiatry, General 05/04/17 07/16/25 Pcp, No PCP - General General Medicine 07/17/25 Provider, MD Rachid 04/27/17 Andres Lakhani MD [address] [place] [address] Finish Specialist Cardiology 07/08/19 Aki Ross MD [address] [place] [address] Primary Finish Specialist Cardiovascular Disease 07/08/19 Ursula Boo MD [address] [address] Gastroenterology 06/07/20 Rocio Youssef PA-C [address] [address] Physician Critical Care Technician Gastroenterology 06/07/20 [place] [address] [address] Clinician Pulmonary Disease 06/20/20 08/22/25 Diana Coppola MD [address] [place] [phone] Internal Medicine 03/22/25 Aparna Chang MD [address] [place] [phone] Physician Pulmonary Disease 08/23/25 documented as of this encounter
--- OUTSIDE RECORDS SUMMARY | 2025-10-03 11:53 | XMS_ITS | Encounter Summary ---
Author Organization [facility] Address [address] [place] [address] Care Team Providers Care Family Service Center Director Name Role Phone Hayden Jace HATFIELD Primary Care Provider [phone] Encounter Details Date Type Department Care Team (Late st Contact Info) Description 04/05/2021 Orders Only [place] [place] [address] Ines Roman APRN [address] [place] [phone] Pre-op testing Social History Tobacco Use [...] EST Appointment [facility] - [address] [address], Pft Procedure Room 10/09/2025 1:30 PM EST Appointment [facility] - [address] [place] [address] Aparna Chang MD [address] [place] [address], [place] [address] Hallway, Pft Walk 10/09/2025 2:00 PM EST Office Visit [facility] [address] [place] [address] Aparna Chang MD [address] [place] [phone] 08/22/2026 11:00 AM EDT Follow Up [facility] Failure Program at [address] [place] [address] Diana Coppola MD [address] [place] [phone] documented as of this encounter Results * SARS CoV-2 (COVID-19) PCR - [facility] (Patient Scheduled for Surgery/Procedure) (04/15/2021 8:29 AM EDT) SARS-CoV-2 RNA (COVID-19) Negative Negative 04/15/2021 2:20 PM EDT [facility] Comment: A negative result does not preclude SARS-CoV-2 infections and should not be used as the sole basis for treatment or other management decisions. This assay is a Nucleic Acid Amplification Test (NAAT)/RT-PCR or TMA ([employer]). This is run on the [employer] system. It has been validated for clinical use by the [facility] (CLIA #: [id number]). It has been granted Emergency Use Authorization by the [place] FDA. Note that falsely negative results can be due to poor sample quality, suboptimal sample type, low viral load, and viral genome variability. This test has not been evaluated for use in asymptomatic individuals. Test ordering and interpretation is at the discretion of the ordering provider. Patient Information: https://www.fda.gov/media/268739/download Provider Information: https://www.fda.gov/media/579129/download Test performance has not been evaluated in asymptomatic patients. Test ordering and result interpretation is at the discretion of the ordering provider. Viral NASOPHARYNGEAL STRUCTURE / Unknown Collection / Unknown 04/15/2021 8:29 AM EDT 04/15/2021 10:23 AM EDT Ines Roman APRN MICROBIOLOGY - GENERAL ORDERABLES Final Result Performing Organization Address City/State/[facility] Co de Phone Number [address] [phone] documented in this encounter Visit Diagnoses Diagnosis Pre-op testing Preoperative examination, unspecified documented in this encounter Additional Health Concerns Assessment Noted Time PHQ-9 Depression Total Score: 0 10/03/20 20 12:10 PM EST documented as of this encounter Care Teams Family Service Center Director Relationship Specialty Start Date End Date Jace Blake DO [address] [place] [address] PCP - General Family Medicine 08/01/14 documented as of this encounter
--- OUTSIDE RECORDS SUMMARY | 2025-10-03 11:53 | XMS_ITS | Encounter Summary ---
Author Organization [facility] Address [address] [place] [address] Care Team Providers Care Manager Web Application Name Role Phone HaydenJace Primary Care Provider [phone] Encounter Details Date Type Department Care Team (Late st Contact Info) Description 04/03/2021 Transcribed Orders [facility] Specimens [address] [place], [place] [address] Yessica Ortega MD [address] [place] [phone] Social History Tobacco Use Types Packs/Day [...] PM EST Appointment [facility] - [facility] [address] [address], Pft Procedure Room 10/09/2025 1:30 PM EST Appointment [facility] - [address] [address] Aparna Chang MD [address] [place] [phone] Hallway, Pft Walk 10/09/2025 2:00 PM EST Office Visit [facility] [address] [address] Aparna Chang MD [address] [place] [phone] 08/22/2026 11:00 AM EDT Follow Up [facility] Failure Program at [address] [place] [address] [phone] Diana Coppola MD [address] [place] [phone] documented as of this encounter Visit Diagnoses Not on filedocumented in this encounter Additional Health Concerns Assessment Noted Time PHQ-9 Depression Total Score: 0 10/03/20 20 12:10 PM EST documented as of this encounter Care Teams Manager Web Application Relationship Specialty Start Date End Date Jace Blake DO [address] [place] [address] PCP - General Family Medicine 08/01/14 documented as of this encounter
--- OUTSIDE RECORDS SUMMARY | 2025-10-03 11:53 | XMS_ITS | Encounter Summary ---
Author Organization [facility] Address [address] [place] [address] Care Team Providers Care Supervisor Lead Refinery Name Role Phone Hayden Jace Primary Care Provider [phone] Encounter Details Date Type Department Care Team (Late st Contact Info) Description 03/27/2021 Orders Only Neurology [address] [place] [address] Ambrosio Wallace MD PhD [address] [place] [phone] Idiopathic peripheral neuropathy (Primary Dx) Social [...] EST Appointment [facility] - [address] [address], Pft Procedure Room 10/09/2025 1:30 PM EST Appointment [facility] - [address] [address] Aparna Chang MD [address] [place] [phone] Hallway, Pft Walk 10/09/2025 2:00 PM EST Office Visit [facility] [address] [address] Aparna Chang MD [address] [place] [phone] 08/22/2026 11:00 AM EDT Follow Up [facility] at [address] [place] [address] Diana Coppola MD [address] [place] [phone] documented as of this encounter Visit Diagnoses Diagnosis Idiopathic peripheral neuropathy- Primary Unspecified hereditary and idiopathic peripheral neuropathy documented in this encounter Additional Health Concerns Assessment Noted Time PHQ-9 Depression Total Score: 0 10/03/20 20 12:10 PM EST documented as of this encounter Care Teams Supervisor Lead Refinery Relationship Specialty Start Date End Date Jace Blake DO [address] [place] [address] PCP - General Family Medicine 08/01/14 documented as of this encounter
--- OUTSIDE RECORDS SUMMARY | 2025-10-03 11:53 | XMS_ITS | Encounter Summary ---
Author Organization [facility] Address [address] [place] [address] Care Team Providers Care Stripper Machine Operator Name Role Phone Jace Blake MD Primary Care Provider Provider, Rachid GARCIA Unavailable Unavaila Andres Topete MD Unavailable [phone] Aki Ross MD Unavailable [phone] Ursula Boo MD Unavailable [phone] Rocio Youssef PA-C Unavailable [phone] Emeterio Valencia MD Unavailable Diana Coppola MD Unavailable Pcp, No Primary Care Provider Unavailabl e Aparna Chang MD Unavailable + [phone] Encounter Details Date Type Department Care Team (Late st Contact Info) Description 02/19/2023 Scanned Document [facility] [address] [place] [phone] Tl Mancera, MACHINE PRESERVATIVE FILLER 5 [facility] 2 [place] [address] Social History Tobacco Use Types [...] documented as of this encounter Care Teams Stripper Machine Operator Relationship Specialty Start Date End Date Jace Blake MD [address] [place] [address] PCP - General Psychiatry, General 05/04/17 07/16/25 Pcp, No PCP - General General Medicine 07/17/25 Provider, MD Rachid 04/27/17 Andres Lakhani MD [address] [place] [address] Compliance Assistant Cardiology 07/08/19 Aki Ross MD [address] [place] [address] Primary Compliance Assistant Cardiovascular Disease 07/08/19 Ursula Boo MD [address] [place] [address] Gastroenterology 06/07/20 Rocio Youssef PA-C [address] [place] [address] Physician Water Meter Installer Gastroenterology 06/07/20 Emeterio Valencia MD [address] [place] [address] Clinician Pulmonary Disease 06/20/20 08/22/25 Diana Coppola MD [address] [place] [phone] Internal Medicine 03/22/25 Aparna Chang MD [address] [place] [phone] Physician Pulmonary Disease 08/23/25 documented as of this encounter
--- OUTSIDE RECORDS SUMMARY | 2025-10-03 11:53 | XMS_ITS | Encounter Summary ---
Author Organization [facility] Address [address] [place] [address] Care Team Providers Care Bobbin Sorter Name Role Phone Jace Blake MD Primary Care Provider [phone] Provider, Rachid GARCIA Unavailable Unavaila Andres Topete MD Unavailable [phone] Aki Ross MD Unavailable Ursula Boo MD Unavailable Rocio Youssef PA-C Unavailable Emeterio Valencia MD Unavailable Diana Coppola MD Unavailable Pcp, No Primary Care Provider Unavailabl e Aparna Chang MD Unavailable + [phone] Encounter Details Date Type Department Care Team (Late st Contact Info) Description 06/12/2020 Scanned Document [facility] [place] [address] [place] [address] Provider, External, [address] [place] [address] Social History Tobacco Use Types Packs/Day Years [...] documented as of this encounter Care Teams Bobbin Sorter Relationship Specialty Start Date End Date Jace Blake MD [address] [place] [address] PCP - General Psychiatry, General 05/04/17 07/16/25 Pcp, No PCP - General General Medicine 07/17/25 ProviderRachid MD 04/27/17 Andres Lakhani MD [address] [place] [address] Liquid Sugar Melter Cardiology 07/08/19 Aki Ross MD [address] [place] [address] Primary Liquid Sugar Melter Cardiovascular Disease 07/08/19 Ursula Boo MD [address] [address] Gastroenterology 06/07/20 Rocio Youssef PA-C [address] [address] Physician Germination Testing Manager Gastroenterology 06/07/20 Emeterio Valencia MD [address] [address] Clinician Pulmonary Disease 06/20/20 08/22/25 Diana Coppola MD [address] [place] [phone] Internal Medicine 03/22/25 Aparna Chang MD [address] [place] [phone] Physician Pulmonary Disease 08/23/25 documented as of this encounter
--- OUTSIDE RECORDS SUMMARY | 2025-10-03 11:53 | XMS_ITS | Encounter Summary ---
Author Organization [facility] Address [address] [place] [address] Care Team Providers Care Forensic Chemist Name Role Phone Blake, Gary Primary Care Provider [phone] Encounter Details Date Type Department Care Team (Late st Contact Info) Description 04/24/2021 Scanned Document INTERFACE DEFAULT [address] [place] [address] System, Provider Not In Social History Tobacco [...] EST Appointment [facility] - [address] [address], Pft Procedure Room 10/09/2025 1:30 PM EST Appointment [facility] - [address] [address] Aparna Chang MD [address] [place] [phone] Sudeep Swanson Walk 10/09/2025 2:00 PM EST Office Visit [facility] [address] 3rd [place] [address] Aparna Chang MD [address] [place] [address], [place] [phone] 08/22/2026 11:00 AM EDT Follow Up [facility] at [address] [place] [address] 2nd [place] [address] Diana Coppola MD [address] [place] [phone] documented as of this encounter Visit Diagnoses Not on filedocumented in this encounter Additional Health Concerns Assessment Noted Time PHQ-9 Depression Total Score: 0 04/17/20 21 11:27 AM EDT documented as of this encounter Care Teams Forensic Chemist Relationship Specialty Start Date End Date Jace Blake DO [address] [place] [address] PCP - General Family Medicine 08/01/14 documented as of this encounter
--- OUTSIDE RECORDS SUMMARY | 2025-10-03 11:53 | XMS_ITS | Encounter Summary ---
Author Organization [facility] Address [address] [place] [address] Care Team Providers Care Supervisory Geographer Name Role Phone BlakeJace Primary Care Provider [phone] Encounter Details Date Type Department Care Team (Late st Contact Info) Description 03/28/2021 Scanned Document INTERFACE DEFAULT [address] [place] [address] System, Provider Not In Social History Tobacco [...] EST Appointment [facility] - [address] [address], Pft Procedure Room 10/09/2025 1:30 PM EST Appointment [facility] - [address] [address] Aparna Chang MD [address] [place] [address], [place] [phone] Sudeep Swanson Walk 10/09/2025 2:00 PM EST Office Visit [facility] [address]rd [facility] [address] Aparna Chang MD [address] [place] [address], [place] [phone] 08/22/2026 11:00 AM EDT Follow Up [facility] at [address] [place] [address], [place] [phone] Diana Coppola MD [address] [place] [address], [place] [phone] documented as of this encounter Visit Diagnoses Not on filedocumented in this encounter Additional Health Concerns Assessment Noted Time PHQ-9 Depression Total Score: 0 10/03/20 20 12:10 PM EST documented as of this encounter Care Teams Supervisory Geographer Relationship Specialty Start Date End Date Jace Blake DO [address] [place] [address] PCP - General Family Medicine 08/01/14 documented as of this encounter
--- OUTSIDE RECORDS SUMMARY | 2025-10-03 11:53 | XMS_ITS | Encounter Summary ---
Author Organization [facility] Address [address] [place] [address] Care Team Providers Care Forest Economist Name Role Phone Miguel Angel Blakey Primary Care Provider [phone] Encounter Details Date Type Department Care Team (Late st Contact Info) Description 06/10/2017 Scanned Document [facility] at [address] [place] [address] Teodoro Hollingsworth MD [address] [place] [phone] Social History Tobacco Use Types Packs/Day Years [...] EST Appointment [facility] - [address] [address], Pft Procedure Room 10/09/2025 1:30 PM EST Appointment [facility] - [address] [address] Aparna Chang MD [address] [place] [phone] Hallway, Pft Walk 10/09/2025 2:00 PM EST Office Visit [facility] [address] [address] Aparna Chang MD [address] [place] [phone] 08/22/2026 11:00 AM EDT Follow Up [facility] at [address] [place] [phone] Diana Coppola MD [address] [place] [phone] documented as of this encounter Visit Diagnoses Not on filedocumented in this encounter Care Teams Forest Economist Relationship Specialty Start Date End Date Jace Blake DO [address] [place] [address] PCP - General Family Medicine 08/01/14 documented as of this encounter
--- OUTSIDE RECORDS SUMMARY | 2025-10-03 11:53 | XMS_ITS | Encounter Summary ---
Author Organization [facility] Address [address] [place] [address] Care Team Providers Care Collision Technician Name Role Phone Jace Blake DO Primary Care Provider [phone] Encounter Details Date Type Department Care Team (Late st Contact Info) Description 05/04/2019 Scanned Document [facility] at [address] [place] [address] Narda Candelaria PA [address] [place] [phone] Social History Tobacco Use Types Packs/Day Years [...] EST Appointment [facility] - [address] [address], Pft Procedure Room 10/09/2025 1:30 PM EST Appointment [facility] - [address] [address] Aparna Chang MD [address] [place] [phone] Hallway, Pft Walk 10/09/2025 2:00 PM EST Office Visit [facility] [address] [address] Aparna Chang MD [address] [place] [phone] 08/22/2026 11:00 AM EDT Follow Up [facility] at [address] [place] [phone] Diana Coppola MD [address] [place] [phone] documented as of this encounter Visit Diagnoses Not on filedocumented in this encounter Care Teams Collision Technician Relationship Specialty Start Date End Date Jace Blake DO [address] [place] [address] PCP - General Family Medicine 08/01/14 documented as of this encounter
--- OUTSIDE RECORDS SUMMARY | 2025-10-03 11:53 | XMS_ITS | Encounter Summary ---
Author Organization [facility] Address [address] [place] [address] Care Team Providers Care Histologic Aide Name Role Phone Miguel Angel Blakey Primary Care Provider [phone] Encounter Details Date Type Department Care Team (Late st Contact Info) Description 07/01/2017 Scanned Document [facility] at [address] [place] [address] Teodoro Hollingsworth MD [address] [place] [phone] Social History Tobacco Use Types Packs/Day Years [...] EST Appointment [facility] - [address] [address], Pft Procedure Room 10/09/2025 1:30 PM EST Appointment [facility] - [address] [address] Aparna Chang MD [address] [place] [phone] Hallway, Pft Walk 10/09/2025 2:00 PM EST Office Visit [facility] [address] [address] Aparna Chang MD [address] [place] [phone] 08/22/2026 11:00 AM EDT Follow Up [facility] at [address] [place] [address] [phone] Diana Coppola MD [address] [place] [phone] documented as of this encounter Visit Diagnoses Not on filedocumented in this encounter Care Teams Histologic Aide Relationship Specialty Start Date End Date Jace Blake DO [address] [place] [address] PCP - General Family Medicine 08/01/14 documented as of this encounter
--- OUTSIDE RECORDS SUMMARY | 2025-10-03 11:53 | XMS_ITS | Encounter Summary ---
Author Organization [facility] Address [address] [place] [address] Care Team Providers Care Refrigerating Technician Name Role Phone Jace Blake MD Primary Care Provider [phone] Provider, Rachid GARCIA Unavailable Unavaila Andres Topete MD Unavailable [phone] Aki Ross MD Unavailable [phone] Ursula Boo MD Unavailable [phone] Rocio Youssef PA-C Unavailable Emeterio Valencia MD Unavailable Diana Coppola MD Unavailable Pcp, No Primary Care Provider Unavailabl e Aparna Chang MD Unavailable + [phone] Encounter Details Date Type Department Care Team (Late st Contact Info) Description 02/27/2023 Scanned Document [facility] [address] [place] [phone] Ursula Boo MD 5 [facility] [address] [place] [address] Social History Tobacco Use Types [...] documented as of this encounter Care Teams Refrigerating Technician Relationship Specialty Start Date End Date Jace Blake MD [address] [place] [address] PCP - General Psychiatry, General 05/04/17 07/16/25 Pcp, No PCP - General General Medicine 07/17/25 Provider, MD Rachid 04/27/17 Andres Lakhani MD [address] [place] [address] Supervisor Aircraft Maintenance Cardiology 07/08/19 Aki Ross MD [address] [place] [address] Primary Supervisor Aircraft Maintenance Cardiovascular Disease 07/08/19 Ursula Boo MD [address] [place] [address] Gastroenterology 06/07/20 Rocio Youssef PA-C [address] [place] [address] Physician Padding Machine Operator Gastroenterology 06/07/20 Emeterio Valencia MD [address] [place] [address] Clinician Pulmonary Disease 06/20/20 08/22/25 Diana Coppola MD [address] [place] [phone] Internal Medicine 03/22/25 Aparna Chang MD [address] [place] [phone] Physician Pulmonary Disease 08/23/25 documented as of this encounter
--- OUTSIDE RECORDS SUMMARY | 2025-10-03 11:53 | XMS_ITS | Encounter Summary ---
Author Organization [facility] Address [address] [place] [address] Care Team Providers Care Top Lift And Automatic Window Repairer Name Role Phone Jace Blake MD Primary Care Provider Provider, Rachid GARCIA Unavailable Unavaila Andres Topete MD Unavailable [phone] Aki Ross MD Unavailable [phone] Ursula Boo MD Unavailable Rocio Youssef PA-C Unavailable [phone] Emeterio Valencia MD Unavailable Diana Coppola MD Unavailable Pcp, No Primary Care Provider Unavailabl e Aparna Chang MD Unavailable + [phone] Encounter Details Date Type Department Care Team (Late st Contact Info) Description 03/12/2023 Scanned Document [facility] [address] [place] [phone] Ursula Boo MD 5 [facility] [address] [place] [address] Social History Tobacco Use Types [...] documented as of this encounter Care Teams Top Lift And Automatic Window Repairer Relationship Specialty Start Date End Date Jace Blake MD [address] [place] [address] PCP - General Psychiatry, General 05/04/17 07/16/25 Pcp, No PCP - General General Medicine 07/17/25 Provider, MD Rachid 04/27/17 Andres Lakhani MD [address] [place] [address] Manager Industrial Cardiology 07/08/19 Aki Ross MD [address] [place] [address] Primary Manager Industrial Cardiovascular Disease 07/08/19 Ursula Boo MD [address] [place] [address] Gastroenterology 06/07/20 Rocio Youssef PA-C [address] [place] [address] Physician Ampoule Examiner Gastroenterology 06/07/20 Emeterio Valencia MD [address] [place] [address] Clinician Pulmonary Disease 06/20/20 08/22/25 Diana Coppola MD [address] [place] [phone] Internal Medicine 03/22/25 Aparna Chang MD [address] [place] [phone] Physician Pulmonary Disease 08/23/25 documented as of this encounter
--- OUTSIDE RECORDS SUMMARY | 2025-10-03 11:53 | XMS_ITS | Encounter Summary ---
Author Organization [facility] Address [address] [place] [phone] Care Team Providers Care [employer] Sprayer Name Role Phone HaydenJace Primary Care Provider [phone] Encounter Details Date Type Department Care Team (Late st Contact Info) Description 07/21/2018 Scanned Document [facility] at [address] [place] [address] Chino Cordova MD PhD [address] [place] [phone] Social History Tobacco Use Types Packs/Day Years [...] PM EST Appointment [facility] 6 [facility] [address] [place] [address] 6, Pft Procedure Room 10/09/2025 1:30 PM EST Appointment [facility] - [address] [address] Aparna Chang MD [address] [place] [phone] Hallway, Pft Walk 10/09/2025 2:00 PM EST Office Visit [facility] [address] [address] Aparna Chang MD [address] [place] [phone] 08/22/2026 11:00 AM EDT Follow Up Congestive Heart Failure Program at [address] [place] [address] 136180 Diana Coppola MD [address] [place] [phone] documented as of this encounter Visit Diagnoses Not on filedocumented in this encounter Care Teams [employer] Sprayer Relationship Specialty Start Date End Date Jace Blake DO [address] [place] [address] PCP - General Family Medicine 08/01/14 documented as of this encounter
--- OUTSIDE RECORDS SUMMARY | 2025-10-03 11:53 | XMS_ITS | Encounter Summary ---
Author Organization [facility] Address [address] [place] [phone] Care Team Providers Care Engineering Project Manager Name Role Phone Jace Blake DO Primary Care Provider [phone] Encounter Details Date Type Department Care Team (Late st Contact Info) Description 05/04/2019 Scanned Document [facility] at [address] [place] [address] Narda Candelaria PA [address] [place] [phone] Social History Tobacco Use Types Packs/Day Years [...] EST Appointment [facility] - [address] [address] 6, Pft Procedure Room 10/09/2025 1:30 PM EST Appointment P[facility] LAB[facility] - [address] [address] Aparna Chang MD [address] [place] [phone] Hallway, Pft Walk 10/09/2025 2:00 PM EST Office Visit [facility] [address] [address] Aparna Chang MD [address] [place] [phone] 08/22/2026 11:00 AM EDT Follow Up [facility] at [address] [place] [address] [phone] Diana Coppola MD [address] [place] [phone] documented as of this encounter Visit Diagnoses Not on filedocumented in this encounter Care Teams Engineering Project Manager Relationship Specialty Start Date End Date Jace Blake DO [address] [place] [address] PCP - General Family Medicine 08/01/14 documented as of this encounter
--- OUTSIDE RECORDS SUMMARY | 2025-10-03 11:53 | XMS_ITS | Encounter Summary ---
Author Organization [facility] Address [address] [place] [phone] Care Team Providers Care Chemical Process Equipment Operator Name Role Phone HaydenJace Primary Care Provider [phone] Encounter Details Date Type Department Care Team (Latest Contact Info) Description 04/19/2019 Transcribed Orders [facility] [address] [place] [address] Aki Ross MD [address] [phone] Paroxysmal atrial fibrillation (Primary Dx) [...] EST Appointment [facility] - [address] [address] 6, Pft Procedure Room 10/09/2025 1:30 PM EST Appointment P[facility] - [address] [address] Aparna Chang MD [address] [place] [phone] Hallway, Pft Walk 10/09/2025 2:00 PM EST Office Visit [facility] [address] [address] Aparna Chang MD [address] [place] [phone] 08/22/2026 11:00 AM EDT Follow Up [facility] at [address] [place] [address] Diana Coppola MD [address] [place] [phone] documented as of this encounter Visit Diagnoses Diagnosis Paroxysmal atrial fibrillation (HC Code) (HC CODE)- Primary Atrial fibrillation documented in this encounter Care Teams Chemical Process Equipment Operator Relationship Specialty Start Date End Date Jace Blake DO [address] [place] [address] PCP - General Family Medicine 08/01/14 documented as of this encounter
--- OUTSIDE RECORDS SUMMARY | 2025-10-03 11:53 | XMS_ITS | Clinical Summary ---
Author Organization [address] Address [address] [place] [phone] Phone Care Team Providers Care Insurance Advisor Name Role Phone Jace Blake DO Primary Care Provider [phone] Allergies No known active allergies Medications multivitamin [...] systolic heart failure (HC Code) (HC CODE) Take 1 tablet (100 mg total) by mouth daily. Take with or immediately following a meal. 90 tablet 3 12/26/19 21 Active famotidine (PEPCID) 20 mg tablet TAKE 1 [...] Active Additional Information Patient not taking.Reported on 08/16/2025 losartan (COZAAR) 25 mg tabletIndications: Chronic systolic heart failure (HC Code) (HC CODE) Take 1 tablet (25 mg total) by mouth daily. 90 tablet 3 03/16/20 24 Active umeclidinium-vilan teroL (ANORO ELLIPTA) 62.5-25 mcg/actuation blister powder for inhalation Inhale 1 puff into the lungs daily. 60 each 3 10/06/20 24 Active Miscellaneous Medical Supply Rolling walker. Use as directed. 1 each 12/07/19 25 Active ketamine/lidocaine /gabapentin: 10-5-6% topical [...] mg tabletIndications: Dilated cardiomyopathy (HC Code) (HC CODE),Longstanding persistent atrial fibrillation (HC Code) (HC CODE) Take 1 tablet (5 mg total) by mouth 2 (two) times daily. 90 tablet 1 03/06/20 25 Active gabapentin (NEURONTIN) 800 mg tablet Take 1.5 tablets (1,200 mg total) by mouth nightly. 135 tablet 05/02/20 25 Active empagliflozin (JARDIANCE) 10 mg tabletIndications: Chronic systolic heart failure (HC Code) (HC CODE) Take 1 tablet (10 mg total) by mouth daily. 90 tablet 3 04/18/20 25 026 Active Active Problems Problem Noted Date Diagnosed [...] plane or car. She will see her riverboat captain at [place] as soon as she can when she [...] The patient's plan is to return up [place] permanently and they hope to travel in February if her physical condition allows. We discussed issues concerning travel by plane or car. She will see her riverboat captain at [place] as soon as she can when she returns. In the interim if she has other issues she may call here to be seen prior to leaving. Interstitial lung disease (HC Code) 10/23/2021 Overview (05/28/2023): Last Assessment & Plan: Evaluated at [facility] and her interstitial lung disease was not felt to be significantly contributing to her dyspnea and other clinical conditions. Some follow-up CT scans and pulmonary function studies were recommended. 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 This was unsuccessful in the past. She is to discuss and review this option with [facility] when she returns there late February [...] day. Chronic systolic heart failure (HC Code) 020 Pulmonary hypertension (HC Code) 08/31/2020 Overview (08/31/2020): Added automatically from request for surgery [id number] Abnormal liver function tests 08/30/2020 Overview (05/28/2023): [...] has been uncertain. Has seen rheumatology of [place]. Last Assessment & Plan: To follow-up rheumatology status up [place]. Apparently has lupus and Sjogren's syndrome. Last Assessment & Plan: Diagnoses has been uncertain. Has seen rheumatology of [place]. Benign essential hypertension 02/06/2019 Overview (05/28/2023): Last [...] neurosurgery for back issues. 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 Routinely follows through [facility] riverboat captain. Interrogated here with recent syncopal episode. Normal function. Occasional mode switching in atrial high rates without ventricular high rates, 1.4% mode switching.? Ventricular runs. No tracings of that available for my review. We will continue to monitor remotely for now through her up [facility] riverboat captain. Last Assessment & Plan: Pacemaker dependent. Medtronic device. Follows remotely through [facility]. Last Assessment & Plan: Dual-chamber Medtronic pacemaker. Routinely follows through [facility] riverboat captain. Interrogated here with recent syncopal episode. Normal function. Occasional mode switching in atrial high rates without ventricular high rates, 1.4% mode switching.? Ventricular runs. No tracings of that available for my review. We will continue to monitor remotely for now through her [facility] riverboat captain. Last Assessment & Plan: Mild to moderate [...] Cardiac MRI did not suggest ischemia at [facility]. No definite angina. Continue medical therapy and control of risk factors. See discussion concerning lipids. Last Assessment & Plan: Mild to moderate by cardiac catheterization 2016 and no ischemia by 2018 stress test. Cardiac MRI did not suggest ischemia more recently. No anginal type symptoms. Continue long-term control of cardiovascular risk factors. No aspirin. On Eliquis. Coronary arteriosclerosis in bad river band artery 03/01 Cardiac pacemaker in situ 07/02/2017 S/P biventricular cardiac pacemaker procedure S/P ablation of atrial fibrillation 04/30/2017 intermediate current use of anticoagulant therapy 0 04/30/2017 [...] will follow with vascular surgery up at [facility]. Last Assessment & Plan: Stable left carotid stenosis by recent ultrasound. No TIA or strokelike symptoms or acute findings on head CT. Continue long-term control of cardiovascular risk factors and follow with her other physicians. 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 Will get records from [facility] (Dr. Escalera at [facility] in [place], [place]). Last Assessment & Plan: GI evaluation [...] in the right lobe. A-fib (HC Code) Encounters Date Type Department Care Team Description 08/23/2025 Abstract [facility] [address] [facility], [address] [place] [address], [address] [place] [address] Aparna Chang MD 08/16/2025 11:40 AM EDT Follow Up Congestive Heart Failure Program at [address] [address] Diana Coppola MD Chronic systolic heart failure (HC Code) (Primary Dx) 08/16/2025 9:40 AM EDT Ancillary Procedure EP [address] [address] Ja Velasquez APRN Presence of cardiac pacemaker 08/16/2025 Orders Only Electrophysiology & Cardiac Arrhythmia Program [address] [address] Ja Velasquez APRN Presence of cardiac pacemaker 08/02/2025 Telephone Electrophysiology & Cardiac Arrhythmia Program [address] [facility] 2nd [place] [address] Anand Gurrola APRN Other 07/27/2025 11:44 AM EDT - 07/27/2025 11:59 PM EDT Hospital Encounter [facility] [address] [place] [address] Anand Gurrola APRN Longstanding persistent atrial fibrillation (HC Code) Discharge Disposition: Home or Self Care 07/17/2025 11:40 AM EDT Ancillary Procedure EP [facility] [address] [place] [address] Ja Velasquez APRN Presence of cardiac pacemaker 07/17/2025 Orders Only Electrophysiology & Cardiac Arrhythmia Program [address] [place] [address] Ja Velasquez APRN Presence of cardiac pacemaker from Last 3 Months Immunizations Immunization Administration Dates Next Due COVID-19, MODERNA 12Y+, [...] Sign Reading Time Taken Comments Blood Pressure 125/76 08/16/2025 11:08 AM EDT Pulse 83 08/16/2025 11:08 AM EDT Temperature 36.3 C (97.3 F) 08/16/2025 11:08 AM EDT Respiratory Rate 18 10/06/2024 2:14 PM EST Oxygen Saturation 98% 08/16/2025 11:08 AM EDT Inhaled Oxygen Concentration - - Weight 95.1 kg (209 lb 9.6 oz) 08/16/2025 11:08 AM EDT Height 182.9 cm (6') 08/16/2025 11:08 AM EDT Body Mass Index 28.43 08/16/2025 11:08 AM EDT Plan of Treatment Upcoming Encounters Date Type Department Care Team (Late st Contact Info) Description 10/09/2025 12:40 PM EST Appointment [facility] [place] [address] 6, Pft Procedure Room 10/09/2025 1:30 PM EST Appointment [facility] - [address] [address] Aparna Chang MD [address] [place] [phone] [place], Pft Walk 10/09/2025 2:00 PM EST Office Visit [facility] [address] [place] [address] Aparna Chang MD [address] [place] [address], [place] [phone] 08/22/2026 11:00 AM EDT Follow Up Congestive Heart Failure Program at [address] [facility], [place] [address] Diana Coppola MD [address] [place] [address] Health Maintenance Due Date Last Done Comments HIV screening 1961 Tetanus adult (Td q 10,TDAP once) 1968 Lipid disorder screening 1988 Osteoporosis screening (bone density) 2013 Shingles vaccine (Shingrix) (1 of 2 - Shingrix (RZV) 2 Dose Standard Series) 09/29/2021 Influenza vaccine 06/23/2025 08/15/2024, , 08/24/2023, Additional history exists Covid-19 vaccine series (2024- season) 2025 08/15/2024, 10/20/2023, 09/01/2023, Additional history exists Lung Cancer Screening 09/05/2026 09/05/2025 , 02/09/2025, 11/05/2024, Additional history exists Diabetes screening 01/03/2028 01/03/2025, 0 07/16/2023, 06/05/2023, Additional history exists Colon cancer screening, Colonoscopy Discontinued 07/16/2020, 07/16/2020, 07/16/2020, Additional history exists Shingles vaccine (Zostavax) Discontinued 07/30/2021 Pneumococcal Vaccine (50+ years) Completed 05/27/2022, 04/23/2021, 09/11/2020, Additional history exists Hepatitis C screening Completed 06/15/2023 , 06/05/2023, 06/04/2023, Additional history exists RSV Immunization Completed 10/05/2023 Breast cancer screening Discontinued Cervical cancer screening Discontinued Meningococcal B Vaccine Aged Out No l onger eligible based on patient's age to complete this topic Meningococcal Vaccine Aged Out No laura megan eligible based on patient's age to complete this topic Medical Devices Implanted Type Area Gravity Prospecting Operator Device Identifier Shelf Expiration Date Model / Serial / Lot GraftBriiifuse 1 Cm X 5cm - [id number] Implanted:Qty: 2 on 05/12/2017 by Teodoro Hollingsworth MD at [place] [address] Graft Lumbar: Spine Lumbar MEDTRONIC () 06/07/2018 [id number] / [id number] / Surgiflo Hemostatic Matrix Kit - [id number] Implanted:Qty: 1 on 05/12/2017 by Teodoro Hollingsworth MD at [place] [address] Other-impla nt Lumbar: Spine Lumbar 05/22/2018 [id number] / / Description:combined with 20 00 units of thrombin- given to surgical site by Ngozi Hale 5c - [id number] Implanted:Qty: 1 on 05/12/2017 by Teodoro Hollingsworth MD at [place] [address] Other-impla nt Lumbar: Spine Lumbar MEDTRONIC () 01/13/2019 [id number] / [id number] / Surgiflo Hemostatic Matrix Kit - [id number] Implanted:Qty: 1 on 05/12/2017 by Teodoro Hollingsworth MD at [place] [address] Other-impla nt Left: Spine Lumbar 12/23/2018 [id number] / / Description:hemostatic matri x with 2000 units of thrombin. Peek Zeferino, 6.35 X 40mm - [id number] Implanted:Qty: 1 on 05/12/2017 by Teodoro Hollingsworth MD at [facility] [address] Zeferino Left: Spine Lumbar 10/01/2021 [id number] / / Description:Left L3-4 Peek Zeferino, 6.35 X 80mm - [id number] Implanted:Qty: 1 on 05/12/2017 by Teodoro Hollingsworth MD at [facility] [address] Zeferino Right: Spine Lumbar 07/28/2019 [id number] / / Description:Right L3-4, S1 Screw, Peek 6.5 X 50mm Legacy - [id number] Implanted:Qty: 4 on 05/12/2017 by Teodoro Hollingsworth MD at [facility] [address] Screw Implant Lumbar: Spine Lumbar [id number] / / Screw, Peek 6.5 X 45mm Legacy - [id number] Implanted:Qty: 1 on 05/12/2017 at [facility] [address] Screw Implant Lumbar: Spine Lumbar [id number] / / Set Screw - [id number] Implanted:Qty: 5 on 05/12/2017 by Teodoro Hollingsworth MD at [facility] [address] Screw Implant Lumbar: Spine Lumbar [id number] / / Pacemaker Procedures Procedure Name Priority Date/Time Associated Diagnosis Comments EKG Routine 08/16/2025 11:07 AM EDT Chronic systolic heart failure (HC Code) PACEMAKER INTERROGATION-REMOTE Routine 08/16/2025 9:39 AM EDT Presence of cardiac pacemaker TRANSTHORACIC ECHO (TTE) COMPLETE W COLOR, DOPPLER AND 3D Routine 07/27/2025 1:29 PM EDT Longstanding persistent atrial fibrillation (HC Code) DEVICE INTERROGATION REMOTE NON BILLABLE Routine 07/17/2025 11:38 AM EDT Presence of cardiac pacemaker BASIC METABOLIC PANEL Routine 01/03/2025 11:12 AM EST Chronic systolic heart failure (HC Code) CT CHEST WO IV CONTRAST HIGH RESOLUTION ( Y LM Y) Routine 11/05/2024 1:16 PM EST ILD (interstitial lung disease) (HC Code) Chronic obstructive pulmonary disease, unspecified COPD type (HC Code) COLONOSCOPY (IMAGES) Routine 07/16/2020 9:19 AM EDT from Last 3 Months or Most Recently Relevant to Health Maintenance Results * EKG (08/16/2025 11:07 AM EDT) Heart Rate 65 bpm [facility] EKG QRS Interval 145 ms [facility] EKG QT Interval 422 ms [facility] EKG QTC Interval 440 ms [facility] EKG P [place] 0 deg [facility] EKG QRS [place] -27 deg [facility] EKG T Wave [place] 67 deg [facility] EKG P-R Interval 188 msec [facility] EKG SEVERITY Abnormal ECG severity [facility] EKG Comment::PQT:A-V dual-paced complexes w/ some inhibition:Electronically Signed On 08-16-2025 14:24:14 EDT by Ninoska Garcia MD OTHER / Unknown 08/16/2025 1 1:07 AM EDT us Diana Coppola MD ECG ORDERABLES Final Result [facility] EKG * Pacemaker Interrogation (08/16/2025 9:39 AM EDT) Anatomical Region Laterality Modality Chest Holter Monitor 07/17/2025 11:3 7 AM EDT Narrative 07/17/2025 11:37 AM EDT Note: Ja Del Rosario [id number]:37.209 - Presenting rhythm: AP/CHERRY GROWER Battery voltage stable. Lead function (sensing/pacing thresholds/impedance) trends stable and within acceptable range. Brief PAF episodes, longest 7 HRs. AF burden: <0.1%. Current EMR medication list reflects oral anticoagulation. on Eliquis 100% RV paced Procedure Note Ja Velasquez APRN - 08/16/2025 Note: Ja Del Rosario [id number]:37.209 - Presenting rhythm:AP/CHERRY GROWER Battery voltage stable. Lead function (sensing/pacing thresholds/impedance) trends stable andwithin acceptable range. Brief PAF episodes, longest 7 HRs. AF burden: <0.1%. Current EMR medication list reflects oral anticoagulation. on Eliquis 100% RV paced us Ja Velasquez APRN CAR DEVICE INTER ORDERABL ES Final Result * TRANSTHORACIC ECHO (TTE) COMPLETE W COLOR, DOPPLER AND 3D (07/27/2025 1:29 PM EDT) Reported 3DE EF% 63 % [facility] Comment:UNSELECTED VALUES:EF Percent BiPlane (LUM4C test with value): 65 Anatomical Region Laterality Modality Chest Ultrasound 07/27/2025 12:4 0 PM EDT Narrative 07/27/2025 2:36 PM EDT * Normal left ventricular size, wall thickness, systolic function and wall motion. LVEF calculated by 3DE was 63%. Diastolic function was difficult to determine due to mitral annular calcification. * Normal right ventricular cavity size and systolic function. * Moderate mitral annular calcification. No other significant valvular abnormalities. * Compared with the prior study, dated 07/28/2023, there is no significant change. Findings: Procedure Information Transthoracic Echocardiogram was performed with color flow Doppler. 3D imaging performed on the LV. Quality of the study was fair. Study quality is limited by lung artifact. Enhancement agent was not needed. Left Ventricle Normal left ventricular size, wall thickness, systolic function and wall motion. LVEF calculated by 3DE was 63%. Diastolic function was difficult to determine due to mitral annular calcification. Right Ventricle Normal right ventricular cavity size and systolic function. ICD/Pacer wire seen in the right ventricle. Tricuspid regurgitation envelope is inadequate for estimation of right ventricular systolic pressure. Atria Atria are normal in size. A pacemaker wire is identified in the right atrium. No interatrial shunt by color Doppler. Aortic Valve Trileaflet aortic valve. Mild aortic valve calcification. No aortic stenosis. No aortic regurgitation. Mitral Valve Normal mitral valve leaflets. Moderate mitral annular calcification. No mitral stenosis. Trace mitral regurgitation. Tricuspid Valve Normal tricuspid valve leaflets. Trace tricuspid regurgitation. Pulmonic Valve Normal pulmonic valve. Trace pulmonic regurgitation. Great Vessels All visible segments of the aorta are normal in size. Venous IVC diameter < 2.1 cm that collapses > 50% with a sniff suggests normal RAP (0-5 mmHg, mean 3 mmHg). Pericardium/Pleural No significant pericardial effusion. Prior Study Comparison Compared with the prior study, dated 07/28/2023, there is no significant change. Procedure Note Andres Palacios MD - 07/27/2025 * Normal left ventricular size, wall thickness, systolic function andwall motion. LVEF calculated by 3DE was 63%. Diastolic function wasdifficult to determine due to mitral annular calcification. * Normal right ventricular cavity size and systolic function. * Moderate mitral annular calcification. No other significant valvularabnormalities. * Compared with the prior study, dated 07/28/2023, there is no significantchange. Findings: Procedure Information Transthoracic Echocardiogram was performed with color flow Doppler. 3Dimaging performed on the LV. Quality of the study was fair. Studyquality is limited by lung artifact. Enhancement agent was not needed. Left Ventricle Normal left ventricular size, wall thickness, systolic function and wallmotion. LVEF calculated by 3DE was 63%. Diastolic function was difficultto determine due to mitral annular calcification. Right Ventricle Normal right ventricular cavity size and systolic function. ICD/Pacerwire seen in the right ventricle. Tricuspid regurgitation envelope isinadequate for estimation of right ventricular systolic pressure. Atria Atria are normal in size. A pacemaker wire is identified in the rightatrium. No interatrial shunt by color Doppler. Aortic Valve Trileaflet aortic valve. Mild aortic valve calcification. No aorticstenosis. No aortic regurgitation. Mitral Valve Normal mitral valve leaflets. Moderate mitral annular calcification. Nomitral stenosis. Trace mitral regurgitation. Tricuspid Valve Normal tricuspid valve leaflets. Trace tricuspid regurgitation. Pulmonic Valve Normal pulmonic valve. Trace pulmonic regurgitation. Great Vessels All visible segments of the aorta are normal in size. Venous IVC diameter < 2.1 cm that collapses > 50% with a sniff suggests normalRAP (0-5 mmHg, mean 3 mmHg). Pericardium/Pleural No significant pericardial effusion. Prior Study Comparison Compared with the prior study, dated 07/28/2023, there is no significantchange. us Anand Gurrola APRN CV ECHO ORDERABLES Final Resul t * Device Interrogation Remote Non Billable (07/17/2025 11:38 AM EDT) Anatomical Region Laterality Modality Chest Holter Monitor 07/17/2025 11:3 7 AM EDT Narrative 07/17/2025 11:37 AM EDT Note: Ja Velsaquez - [id number] - Presenting rhythm: AP/CHERRY GROWER Battery voltage stable. Lead function (sensing/pacing thresholds/impedance) trends stable and within acceptable range. Brief PAF episodes, longest 7 HRs. AF burden: <0.1%. Current EMR medication list reflects oral anticoagulation. on Eliquis 100% RV paced Procedure Note Ja Velasquez APRN - 07/17/2025 Note: Ja Velasquez - [id number]:37:37.209 - Presenting rhythm:AP/CHERRY GROWER Battery voltage stable. Lead function (sensing/pacing thresholds/impedance) trends stable andwithin acceptable range. Brief PAF episodes, longest 7 HRs. AF burden: <0.1%. Current EMR medication list reflects oral anticoagulation. on Eliquis 100% RV paced Ja Velasquez APRN CAR DEVICE INTER ORDERABL ES Final Result * Basic metabolic panel (01/03/2025 11:12 AM EST) [facility] Glucose 76 65 - 99 mg/dL [facility] Comment: Fasting reference interval BUN 9 7 - 25 mg/dL [facility] Creatinine 0.78 0.60 - 1.00 mg/dL [facility] eGFR (Creatinine) 79 > OR = 60 mL/min/1. 73m2 [facility] BUN/Creatinine Ratio SEE NOTE: 6 - 22 (calc) [facility] Comment: Not Reported: BUN and Creatinine are within reference range. Sodium 139 135 - 146 mmol/L [facility] Potassium 4.2 3.5 - 5.3 mmol/L [facility] Chloride 101 98 - 110 mmol/L [facility] CO2 28 20 - 32 mmol/L [facility] Calcium 9.4 8.6 - 10.4 mg/dL [facility] Blood 01/03/2025 11:1 2 AM EST 01/03/2025 11:13 AM EST Narrative Resulting Agency Comment Performing Lab: Site ID: [id number] Name: [facility] Address: [address] [place] [phone] Director: Gosia Ness M.D. Diana Coppola MD LAB BLOOD ORDERABLES Final Resul t [facility] [address] [place], [place] [id number] [place] [address] * CT Chest wo IV Contrast High [facility]) (11/05/2024 1:16 PM EST) Anatomical Region Laterality Modality Chest Computed Tomogra phy 11/07/2024 10:1 9 AM EST Impressions 11/07/2024 10:37 AM EST There has been an increase in the subpleural reticulation in the lower lungs. Bronchial wall thickening and peribronchial groundglass attenuation in right upper lobe and right middle lobe unchanged. [facility] Radiology Notify System Classification: Routine. Reported and signed by: Amelia Oneal MD [facility] Narrative 11/07/2024 10:[address] CHEST WO IV CONTRAST HIGH RESOLUTION ([facility]) Date: 11/05/2024 1:16 PM INDICATION: Interstitial lung disease ILD. COMPARISON: CT CHEST WO IV CONTRAST HIGH RESOLUTION ([facility]) 2023-04-16 TECHNIQUE: Contiguous CT axial sections were obtained from the upper thorax to the upper abdomen during inspiration and expiration. No intravenous contrast was administered. Coronal and sagittal reformatted images were also provided. Exam quality: Inspiratory and expiratory images were adequate. No significant motion artifact. FINDINGS: Lungs/Airways/Pleura: Since the [...] enlarged mediastinal lymph nodes. Heart and Vessels: Normal heart size. Pacemaker in good position No pericardial effusion. No thoracic aortic aneurysm. The pulmonary artery is slightly increased in size consistent with pulmonary hypertension.. Moderate atherosclerotic calcifications of the coronary arteries. Mitral annulus calcification. Visualized Upper Abdomen: Status post cholecystectomy. Bones and Soft Tissues: No suspicious bone lesions. Procedure Note Amelia Onael MD - 11/07/2024 CT CHEST WO IV CONTRAST HIGH RESOLUTION ([facility]) Date:11/05/2024 1:16 PM INDICATION: Interstitial lung disease ILD. COMPARISON: CT CHEST WO IV CONTRAST HIGH RESOLUTION ([facility])2023-04-16 TECHNIQUE: Contiguous CT axial sections were obtained [...] upper lobe and right middle lobe unchanged. [facility] Radiology Notify System Classification: Routine. 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 Requesting Provider: Procedure: Pre-Anesthesia Assessment: - ASA Grade Assessment: III - A patient with severe systemic disease. After obtaining informed consent, the scope was passed under direct vision. Throughout the procedure, the patient's blood pressure, pulse, and oxygen saturations were monitored continuously.The colonoscopy was performed without difficulty. The patient tolerated the procedure well. The quality of the bowel preparation was good. The Colonoscope was introduced through the anus and advanced to the terminal ileum, with identification of the appendiceal orifice and IC valve. Findings: The retroflexed view of the distal rectum and anal verge was normal and showed no anal or rectal abnormalities. A diminutive polyp was found in the transverse colon. The polyp was removed with a cold biopsy forceps. Resection and retrieval were complete. Four polyps were found in the rectum and sigmoid colon. The polyps were diminutive in size. These polyps were removed with a cold biopsy forceps. Resection and retrieval were complete. Impression: - The distal rectum and anal verge are normal on retroflexion view. - One diminutive polyp in the transverse colon, removed with a cold biopsy forceps. Resected and retrieved. - Four diminutive polyps in the rectum and in the sigmoid colon, removed with a cold biopsy forceps. Resected and retrieved. Recommendation: - follow up biopsies (1-2 weeks) Procedure Code(s): --- Professional --- 19106, Colonoscopy, flexible; with biopsy, single or multiple Diagnosis Code(s): --- Professional --- D12.3, Benign neoplasm of transverse colon (hepatic flexure or splenic flexure) K62.1, Rectal polyp D12.5, Benign neoplasm of sigmoid colon D50.9, Iron deficiency anemia, unspecified CPT copyright 2018 [employer]. All rights reserved. The codes documented in this report are preliminary and upon triage registered nurse review may be revised to meet current compliance requirements. Joanie Boo MD Ursula Boo, 07/16/2020 9:26:10 AM This report has been signed electronically. Number of Addenda: 0 Note Initiated On: 07/16/2020 9:19 AM Estimated Blood Loss: Estimated blood loss: none. [facility] 07/16/2020 9:19 AM EDT us Provider Not In System GI PROCEDURE ORDERABLES E dited Result - Final [facility] PROVATION from Last 3 Months or Most Recently Relevant to Health Maintenance Insurance MEDICARE [facility] MEDICARE [facility] MEDICARE [facility] MEDICARE [facility] Advance Directives * Full ACLS (Latest Code Status on File) Date Activated Date Inactivated Comments 05/15/2017 9:33 PM 05/18/2017 9:43 PM * Full ACLS Date Activated Date Inactivated Comments 05/12/2017 2:29 PM 05/14/2017 3:35 PM * Full Interventions Date Activated Date Inactivated Comments 08/07/2014 9:00 AM 08/09/2014 6:32 PM Care Teams Insurance Advisor Relationship Specialty Start Date End Date Jace Blake DO [address] [place] [address] PCP - General Family Medicine 08/01/14
--- OUTSIDE RECORDS SUMMARY | 2025-10-03 11:53 | XMS_ITS | Clinical Summary ---
Author Organization [facility] ity Address [address] [place] [address] Care Team Providers Care Pattern Setter Name Role Phone Jace Blake Primary Care Provider [phone] Social History Tobacco Use Types Packs/Day Years [...] Patients (1 - 1-dose 75+ series) 2023 Falls Risk Assessment 06/22/2024 Hepatitis C Screening 06/22/2024 Osteoporosis Screening (Bone Density Screening) 06/22/2024 Social Influencers of Health Screening 06/22/2024 Depression Screening 11/23/2024 Hypertension/CHF/CAD Annual BMP Blood Test 03/12/2025 03/12/2024, 03/12/2024, 03/11/2024, Additional history exists COVID-19 Vaccine ( season) 2025 Influenza Vaccine (#1) 2025 HIB Vaccines Aged Out No longer [...] age to complete this topic Care Teams Pattern Setter Relationship Specialty Start Date End Date Jace Blake DO [address] [place], [place] PCP - General 03/11/24
--- OUTSIDE RECORDS SUMMARY | 2025-10-03 11:53 | XMS_ITS | Encounter Summary ---
Author Organization [facility] Address [address] [place] [address] Care Team Providers Care Legal Transcriptionist Name Role Phone Blake, Gary Primary Care Provider [phone] Encounter Details Date Type Department Care Team (Latest Contact Info) Description 07/19/2021 Transcribed Orders [facility] STATION [facility] [address] [place] [address] Kiya Macias, WALDEMAR [address] [address] Fatty metamorphosis of liver (Primary Dx); [...] EST Appointment [facility] - [address] [place] [address] 6, Pft Procedure Room 10/09/2025 1:30 PM EST Appointment [facility] - [address] [place] [address] Aparna Chang MD [address] [place] [address], [place] [address] Hallway, Pft Walk 10/09/2025 2:00 PM EST Office Visit [facility] [address] [place] [address] Aparna Chang MD [address] [place] [address], [place] [address] 08/22/2026 11:00 AM EDT Follow Up Congestive Heart Failure Program at [address] [place] [address], [place] [address] Diana Coppola MD [address] [place] [address], [place] [address] documented as of this encounter Results * Vgjsl-2-ultwxdswfpq phenotype (07/19/2021 4:05 PM EDT) [facility] Signature Hyuhs-2-Lsxdtmsiy in Phenotype SEE BELOW 08/01/2021 5:14 PM EDT [facility] Comment: THIS PATIENT'S PKDED-7-GADATRFCWGI 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 90% of normal individuals have the MM phenotype, with normal quantitative AAT levels. Many phenotypic patterns have been described, including deficiency states with F, S, Z, or other alleles. As a general estimation, compared to M allele of 100% of normal P-5-Eikpmdvppxg protein, the S allele produces approximately 60% and the Z allele 20%. For example, an MS phenotype would have about 80% of normal T-9-Wrdtrubxgde protein level, a 50% contribution from the M allele and 30% from the S allele. A ZZ phenotype would have about 20% of normal levels, a 10% contribution from each Z gene. The F allele has normal J-7-Ojozptkjxul levels, but the kinetics of elastase inhibition [...] the deficient MZ phenotype. Test performed by [employer] [id number] [id number] Wood Car Builder: Milana Baptiste MD,PHD,DECLAN Test Reported by [facility], [employer] [facility], [address] [place] [address] Teodoro Shore M.D., Ph.D., Director of Laboratories , CLIA [id number] Blood Venipuncture / Unknown 07/19/2021 4:05 PM EDT 07/19/2021 4:05 PM EDT Kiya Macias APRN LAB BLOOD ORDER LUCA Final Result [employer] [facility] * Tissue transglutaminase, IgA (07/19/2021 4:05 PM EDT) tTG, IgA 1.1 <7.0 Catarina U/mL 07/22/2021 1:14 PM EDT + [facility] Comment: <7 Catarina U/mL Negative 7-10 Catarina U/mL Equivocal >10 Catarina U/mL Positive Blood Venipuncture / Unknown 07/19/2021 4:05 PM EDT 07/19/2021 4:05 PM EDT us Kiya Macias PLANE TENDER LAB BLOOD ORDER LUCA Final Result [facility] [address] [place] [address] * Immunoglobulin M (07/19/2021 4:05 PM EDT) Immunoglobulin M 184 40 - 230 mg/dL 07/19/2021 5:33 PM EDT [facility] Blood Venipuncture / Unknown 07/19/2021 4:05 PM EDT 07/19/2021 4:05 PM EDT Kiya Macias PLANE TENDER LAB BLOOD ORDER LUCA Final Result Performing Organization Address City/[facility] [place] [address], [facility] [phone] * Immunoglobulin G (07/19/2021 4:05 PM EDT) Immunoglobulin G 1,240 700 - 1,600 mg/dL 07/19/2021 5:33 PM EDT [facility] Blood Venipuncture / Unknown 07/19/2021 4:05 PM EDT 07/19/2021 4:05 PM EDT us Kiya Macias PLANE TENDER LAB BLOOD [place] [address], [facility] [phone] * Immunoglobulin A (07/19/2021 4:05 PM EDT) Immunoglobulin A 353 70 - 400 mg/dL 07/19/2021 5:33 PM EDT [facility] Blood Venipuncture / Unknown 07/19/2021 4:05 PM EDT 07/19/2021 4:05 PM EDT us Kiya Regina Colleen PLANE TENDER LAB BLOOD ORDER LUCA Final Result Performing Organization Address City/[facility]/[place] [address], [facility] [phone] * (ABNORMAL) Gamma GT (07/19/2021 4:05 PM EDT) GGT 123(H) 5 - 85 U/L 07/19/2021 5:33 PM EDT [facility] Blood Venipuncture / Unknown 07/19/2021 4:05 PM EDT 07/19/2021 4:05 PM EDT Kiya Vaelrazabeth Colleen PLANE TENDER LAB BLOOD ORDER LUCA Final Result Performing Organization Address [facility] [place] [address], [facility] [phone] * Edzcr-6-ohcsyphfcvk ( GH L LMW YH) (07/19/2021 4:05 PM EDT) Rpmdk-2-Zsrhnixwr in 183 83 - 199 mg/dL 07/24/2021 12:45 PM EDT [facility] Comment: Test Performed at: [facility] [address] [address] Teodoro Shore M.D., Ph.D.,Director of Laboratories Blood Venipuncture / Unknown 07/19/2021 4:05 PM EDT 07/19/2021 4:05 PM EDT us Kiya Macias PLANE TENDER LAB BLOOD ORDER LUCA Final Result [facility] * Ceruloplasmin (07/19/2021 4:05 PM EDT) Ceruloplasmin 33 18 - 51 mg/dL 07/20/2021 2:53 PM EDT [facility]ORATORY MEDICINE Blood Venipuncture / Unknown 07/19/2021 4:05 PM EDT 07/19/2021 4:05 PM EDT Kiya Macias PLANE TENDER LAB BLOOD ORDER LUCA Final Result Performing Organization Address [facility]/ZIP Co de Phone Number [facility] DEPARTMENT OF LABORATORY MEDICINE [address] [place] [address], [facility] [phone] * Anti-smooth muscle antibody, IgG (L LMW Q) (07/19/2021 4:05 PM EDT) Actin (Smooth Muscle) Antibody, IgG <20 <20 U 07/24/2021 12:07 AM EDT [facility] Comment: Reference Range: <20 U: Negative >or=20 U: Positive Antibodies [...] with AIH type 1. Test Performed at: [facility] [address] [address] Teodoro Shore M.D., Ph.D.,Director of Laboratories Blood Venipuncture / Unknown 07/19/2021 4:05 PM EDT 07/19/2021 4:05 PM EDT Kiya Macias APRN LAB BLOOD ORDER LUCA Final Result [facility] * Protime and INR (07/19/2021 4:05 PM EDT) Prothrombin Time 11.0 9.9 - 11.8 seconds 07/19/2021 5:22 PM EDT [facility] INR 1.1 0.9 - 1.1 07/19/2021 5:22 PM EDT [facility] Comment: RECOMMENDED INR THERAPEUTIC RANGES: STANDARD INTENSITY......2.0-3.0 HIGH INTENSITY..........2.5-3.5 Blood Venipuncture / Unknown 07/19/2021 4:05 PM EDT 07/19/2021 4:05 PM EDT [facility] - 07/19/2021 5:22 PM EDT As of January 10, 2020 this assay is being performed on new instrumentation. Please note that the reference ranges may have changed. us Kiya Macias APRN LAB BLOOD [place] [address], [facility] [phone] * (ABNORMAL) Liver fibrosis, FibroTest-ActiTest panel (BH GH LMW Q YH) (07/19/2021 4:05 PM EDT) Fibrosis Score 0.30 07/26/2021 2:24 PM EDT [facility] Fibrosis Stage F1 07/26/2021 2:24 PM EDT [facility] Fibrosis Interpretation SEE BELOW 07/26/2021 2:24 PM EDT [facility] Comment: minimal fibrosis Fibro Test Score (f) Metavir Score f>=0 and f<=0.21 : F0 (no fibrosis) f>0.21 [...] DIAGNOSTICS Comment: no activity ActiTest Score (a) Metavir Score a>=0 and a<=0.17 : A0 (no activity) a>0.17 and a<=0.29 : A0-A1 (no activity) a>0.29 and a<=0.36 : A1 (minimal activity) a>0.36 and a<=0.52 : A1-A2 (minimal activity) a>0.52 and a<=0.60 : A2 (significant activity) a>0.60 and a<=0.62 : A2-A3 (significant activity) a>0.62 and a<=1.00 : A3 (severe activity) Hkvjl-3-Igcaquptefn in 186 106 - 279 mg/dL 07/26/2021 2:24 PM EDT [facility] Haptoglobin 209 43 - 212 mg/dL 07/26/2021 2:24 PM EDT [facility] Apolipoprotein A-1 132 101 - 198 mg/dL 07/26/2021 2:24 PM EDT [facility] Bilirubin, Total 0.4 0.2 - 1.2 mg/dL 07/26/2021 2:24 PM EDT [facility] GGT 90(H) 3 - 65 U/L 07/26/2021 2:24 PM EDT [facility] Alanine Aminotransferase (ALT) 10 6 - 29 U/L 07/26/2021 2:24 PM EDT [facility] Reference ID [id number] 07/26/2021 2:24 PM EDT [facility] Footnote SEE BELOW 07/26/2021 2:24 PM EDT [facility] Comment: The reliability of results is dependent on compliance with the preanalytical and analytical conditions recommended by [employer]. The tests have to be deferred for: [...] The performance characteristics have been determined by [facility]. It has not been cleared or approved by the U.S. Food and Drug Administration. Performance characteristics refer to the analytical performance of the test. [employer], the associated logo, [employer] and all associated [employer] gonzales are the registered trademarks of [employer]. All third libertarian gonzales - (R) and (TM) - are the property of their respective owners. (C) [id number] [employer]. All rights reserved. Test performed by [facility] [address] [place] [address] Wood Car Builder: Milana Baptiste MD,PHD,DECLAN Test Reported by [facility], [address] [place] [address] Teodoro Shore M.D., Ph.D., Director of Laboratories , [facility] [id number] Blood Venipuncture / Unknown 07/19/2021 4:05 PM EDT 07/19/2021 4:05 PM EDT Kiya Macias APRN LAB BLOOD ORDER LUCA Final Result [employer] [facility] documented in this encounter Visit Diagnoses Diagnosis Fatty metamorphosis of liver- Primary Other chronic nonalcoholic liver disease Acid phosphatase elevated Other nonspecific abnormal serum enzyme levels documented in this encounter Additional Health Concerns Assessment Noted Time PHQ-9 Depression Total Score: 0 07/10/20 21 10:52 AM EDT documented as of this encounter Care Teams Legal Transcriptionist Relationship Specialty Start Date End Date Jace Blake DO [address] [place] [address] PCP - General Family Medicine 08/01/14 documented as of this encounter
--- OUTSIDE RECORDS SUMMARY | 2025-10-03 11:53 | XMS_ITS | Encounter Summary ---
Author Organization [facility] Address [address] [place] [address] Care Team Providers Care Hoist Worker Name Role Phone HaydenJace Primary Care Provider [phone] Encounter Details Date Type Department Care Team (Latest Contact Info) Description 04/03/2021 Transcribed Orders [facility] DRAW STATION [place] [address] [place] [phone] Ambrosio Wallace MD PhD [address] [place] [phone] Idiopathic peripheral neuropathy (Primary Dx) Social [...] EST Appointment [facility] - [address] [address] 6, Pft Procedure Room 10/09/2025 1:30 PM EST Appointment [facility] - [address] [address] Aparna Chang MD [address] [place] [phone] Hallway, Pft Walk 10/09/2025 2:00 PM EST Office Visit [facility] [address] [place] [address] Aparna Chang MD [address] [place] [phone] 08/22/2026 11:00 AM EDT Follow Up [facility] at [address] [place] [address] Diana Coppola MD [address] [place] [phone] documented as of this encounter Procedures Procedure [...] (GH L LMW) (04/03/2021 10:18 AM EDT) Protein, Total 7.2 6.1 - 8.1 g/dL 04/07/2021 6:40 AM EDT [facility] Albumin 3.8 3.8 - 4.8 g/dL 04/07/2021 6:40 AM EDT [facility] Iodan-6-Bxndiqlk 0.3 0.2 - 0.3 g/dL 04/07/2021 6:40 AM EDT [facility] Vuocs-0-Mrvfgwnp 0.8 0.5 - 0.9 g/dL 04/07/2021 6:40 AM EDT [facility] Scrn-2-Jxuznzwc 0.5 0.4 - 0.6 g/dL 04/07/2021 6:40 AM EDT [facility] Ufxe-2-Hlkrunzf 0.5 0.2 - 0.5 g/dL 04/07/2021 6:40 AM EDT [facility] Gamma Globulin 1.3 0.8 - 1.7 g/dL 04/07/2021 6:40 AM EDT [facility] Abnormal Protein Band 1 SEE BELOW 04/07/2021 6:40 AM EDT [facility] Comment: No M Tian detected. Reference Range: None Detected Interpretation SEE BELOW 04/07/2021 6:40 AM EDT [facility] Comment: Normal Electrophoretic Pattern Test Performed at: [id number] [place] [address] Teodoro Shore M.D., Ph.D.,Director of Laboratories Blood Venipuncture / Unknown 04/03/2021 10:18 AM EDT 04/03/2021 11:15 AM EDT Ambrosio Wallace MD PhD LAB BLOOD ORDERABLES Final Result [facility] * Albumin (04/03/2021 10:18 AM EDT) Pathologist [facility] Albumin 3.7 3.4 - 5.0 g/dL 04/03/2021 11:27 AM EDT [facility] Blood Venipuncture / Unknown 04/03/2021 10:18 AM EDT 04/03/2021 11:15 AM EDT us Ambrosio Wallace MD PhD LAB BLOOD ORDERABLES Final Result Performing Organization Address [facility] Co de Phone Number [address] [phone] * Protein, total (04/03/2021 10:18 AM EDT) [facility] Total Protein 7.7 6.4 - 8.2 g/dL 04/03/2021 11:28 AM EDT [facility] Blood Venipuncture / Unknown 04/03/2021 10:18 AM EDT 04/03/2021 11:15 AM EDT Result [facility] us Ambrosio Wallace MD PhD LAB BLOOD ORDERABLES Final Result Performing Organization Address [facility] de Phone Number [address] [phone] * Immunofixation, serum (04/03/2021 10:18 AM EDT) [facility] Immunofixation Interp., Serum SEE BELOW 04/07/2021 7:43 PM EDT [facility] Comment: No abnormal bands are present on immunofixation. Reference Range: No monoclonal proteins detected Test Performed at: [facility] [address] [address] Teodoro Shore M.D., Ph.D.,Director of Laboratories Blood Venipuncture / Unknown 04/03/2021 10:18 AM EDT 04/03/2021 10:32 AM EDT us Ambrosio Wallace MD PhD LAB BLOOD ORDERABLES Final Result [facility] * Sjogren's Antibodies (SS-A,SS-B) (04/03/2021 10:18 AM EDT) Sjogrens Ab, SS-A (Ro) 0.4 <7.0 Catarina U/mL 04/05/2021 1:48 PM EDT [facility] Comment: <7 Catarina U/mL Negative 7-10 Catarina U/mL Equivocal >10 Catarina U/mL Positive Sjogrens Ab, SS-B (La) 0.3 <7.0 Catarina U/mL 04/05/2021 1:48 PM EDT [facility] Comment: <7 Catarina U/mL Negative 7-10 Catarina U/mL Equivocal >10 Catarina U/mL Positive Blood Venipuncture / Unknown 04/03/2021 10:18 AM EDT 04/03/2021 10:33 AM EDT Ambrosio Wallace MD PhD LAB BLOOD ORDERABLES Final Result Performing Organization Address [facility] de Phone Number [facility] [address] [place] [phone] * (ABNORMAL) Sedimentation rate (ESR) (04/03/2021 10:18 AM EDT) Sedimentation Rate (ESR) 50(H) 0 - 20 mm/hr 04/03/2021 10:55 AM EDT [facility] Blood Venipuncture / Unknown 04/03/2021 10:18 AM EDT 04/03/2021 10:32 AM EDT Narrative [facility] - 04/03/2021 10:55 AM EDT As of November 06, 2020 this assay is being performed on new instrumentation. Please note that the reference range has changed. Ambrosio Wallace MD PhD LAB BLOOD ORDERABLES Final Result [facility] [address] [phone] * Vitamin B12 (04/03/2021 10:18 AM EDT) Vitamin B12 596 211 - 911 pg/mL 04/03/2021 7:00 PM EDT [facility] Blood Venipuncture / Unknown 04/03/2021 10:18 AM EDT 04/03/2021 10:33 AM EDT Ambrosio Wallace MD PhD LAB BLOOD ORDERABLES Final Result [facility] [address] [place] [address] documented in this encounter Visit Diagnoses Diagnosis Idiopathic peripheral neuropathy- Primary Unspecified hereditary and idiopathic peripheral neuropathy documented in this encounter Additional Health Concerns Assessment Noted Time PHQ-9 Depression Total Score: 0 10/03/20 20 12:10 PM EST documented as of this encounter Care Teams Hoist Worker Relationship Specialty Start Date End Date Jace Blake DO [address] [place] [phone] PCP - General Family Medicine 08/01/14 documented as of this encounter
--- OUTSIDE RECORDS SUMMARY | 2025-10-03 11:53 | XMS_ITS | Encounter Summary ---
Author Organization [facility] Address [address] [place] [phone] Care Team Providers Care Alteration Manager Name Role Phone Blake, Gary Primary Care Provider [phone] Encounter Details Date Type Department Care Team (Late Contact Info) Description 08/05/2021 Orders Only [facility] at [address] [place] [address] Meghana Hunter MD [address] [place] [phone] LFT elevation Social History Tobacco Use [...] Department Care Team (Late Contact Info) Description 10/09/2025 12:40 PM EST Appointment [facility] - [address] [address], Pft Procedure Room 10/09/2025 1:30 PM EST Appointment [facility] - [address] [address] Aparna Chang MD [address] [place] [phone] Hallway, Pft Walk 10/09/2025 2:00 PM EST Office Visit [facility] [address] [address] Aparna Chang MD [address] [place] [phone] 08/22/2026 11:00 AM EDT Follow Up Congestive Heart Failure Program at [address] [place] [phone] Diana Coppola MD [address] [place] [phone] documented as of this encounter Procedures Procedure Name Priority Date/Time Associated Diagnosis Comments C-REACTIVE PROTEIN (CRP) Routine 08/05/2021 7:56 AM EDT LFT elevation documented in this encounter Results * (ABNORMAL) C-reactive protein (CRP) (08/05/2021 7:56 AM EDT) C-Reactive Protein 3.17(H) <0.30 mg/dL 08/05/2021 8:25 AM EDT [facility] Blood Venipuncture / Unknown 08/05/2021 7:56 AM EDT 08/05/2021 8:13 AM EDT us Meghana Hunter MD LAB BLOOD ORDERABLES Final Result [address] [address] [phone] documented in this encounter Visit Diagnoses Diagnosis LFT elevation Other abnormal blood chemistry documented in this encounter Additional Health Concerns Assessment Noted Time PHQ-9 Depression Total Score: 0 07/10/20 21 10:52 AM EDT documented as of this encounter Care Teams Alteration Manager Relationship Specialty Start Date End Date Jace Blake DO [address] [place] [phone] PCP - General Family Medicine 08/01/14 documented as of this encounter
--- OUTSIDE RECORDS SUMMARY | 2025-10-03 11:53 | XMS_ITS | Encounter Summary ---
Author Organization [facility] Address [address] [place] [address] Care Team Providers Care Sash Installer Name Role Phone Blake, Gary Primary Care Provider [phone] Encounter Details Date Type Department Care Team (Latest Contact Info) Description 04/03/2021 Transcribed Orders [facility] Laboratory Specimens [address] [place] [address] Yessica Ortega MD [address] [place] [phone] Lupus (HC Code) (Primary Dx); Pulmonary [...] EST Appointment [facility] - [address] [place] [address] 6, Pft Procedure Room 10/09/2025 1:30 PM EST Appointment [facility]ATORY - [address] [place] [address] Aparna Chang MD [address] [place] [phone] Hallway, Pft Walk 10/09/2025 2:00 PM EST Office Visit [facility] [address] [phone] Aparna Chang MD [address] [place] [phone] 08/22/2026 11:00 AM EDT Follow Up Congestive Heart Failure Program at [address] [place] [address] Diana Coppola MD [address] [place] [phone] documented as of this encounter Results * COVID-19 Clearance or for Placement Only (04/06/2021 8:42 AM EDT) SARS-CoV-2 RNA (COVID-19) Negative Negative 04/06/2021 3:25 PM EDT [facility] Comment: A negative result does not preclude SARS-CoV-2 infections and should not be used as the sole basis for treatment or other management decisions. This assay is a Nucleic Acid Amplification Test (NAAT)/RT-PCR or TMA ([employer]). This is run on the Xola system. It has been validated for clinical use by the [facility] (CLIA #: [id number]). It has been granted Emergency Use Authorization by the [place] FDA. Note that falsely negative results can be due to poor sample quality, suboptimal sample type, low viral load, and viral genome variability. This test has not been evaluated for use in asymptomatic individuals. Test ordering and interpretation is at the discretion of the ordering provider. Patient Information: https://www.fda.gov/media/148839/download Provider Information: https://www.fda.gov/media/195039/download Test performance has not been evaluated in asymptomatic patients. Test ordering and result interpretation is at the discretion of the ordering provider. Viral NASOPHARYNGEAL STRUCTURE / Unknown Collection / Unknown 04/06/2021 8:42 AM EDT 04/06/2021 11:10 AM EDT us Yessica Ortega MD MICROBIOLOGY - GENERAL ORDERAB LES Final Result Performing Organization Address City/State/[facility] Co de Phone Number [address] [phone] documented in this encounter Visit Diagnoses Diagnosis Lupus- Primary Systemic lupus erythematosus Pulmonary hypertension (HC Code) (HC CODE) Other chronic pulmonary heart diseases Sjogren's syndrome, with unspecified organ involvement Pre-op testing Preoperative examination, unspecified documented in this encounter Additional Health Concerns Assessment Noted Time PHQ-9 Depression Total Score: 0 10/03/20 20 12:10 PM EST documented as of this encounter Care Teams Sash Installer Relationship Specialty Start Date End Date Jace Blake DO [address] [place] [address] PCP - General Family Medicine 08/01/14 documented as of this encounter
--- OUTSIDE RECORDS SUMMARY | 2025-10-03 11:53 | XMS_ITS | Encounter Summary ---
Author Organization [facility] Address [address] [place] [address] Care Team Providers Care Hand Finisher Name Role Phone Hayden Jace Primary Care Provider Encounter Details Date Type Department Care Team (Late st Contact Info) Description 05/04/2019 Transcribed Orders [facility] MOB [address] [place] [address] Jana Escalera MD [address] [place] [phone] Granulocytosis (Primary Dx) Social History Tobacco [...] EST Appointment P[facility] LAB[facility]ATORY - [address] [address] 6, Pft Procedure Room 10/09/2025 1:30 PM EST Appointment PUL[facility]CTION LABORATORY - [address] [address] Aparna Chang MD [address] [place] [phone] Hallway, Pft Walk 10/09/2025 2:00 PM EST Office Visit [facility] [address] [phone] Aparna Chang MD [address] [place] [phone] 08/22/2026 11:00 AM EDT Follow Up Congestive Heart Failure Program at [address] [place] [phone] Diana Coppola MD [address] [place] [phone] documented as of this encounter Results * Phosphatidylserine Ab IgG, IgM (BH GH LMW Q YH) (05/04/2019 12:08 PM EDT) [facility] Phosphatidylserine Ab IgG <10 <10 U/mL 05/06/2019 4:26 AM EDT [email or web address] Phosphatidylserine Ab IgM <25 <25 U/mL 05/06/2019 4:26 AM EDT [facility] Comment: Phosphatidylserine (IgG) Reference range: <10 U/mL Negative 10-20 U/mL Equivocal - Found in small percentage of the healthy population; may be reactive >20 U/mL Positive - Risk factor for thrombosis and loss. Phosphatidylserine (IgM) Reference range: <25 U/mL Negative 25-35 U/mL Equivocal - Found in small percentage of the healthy population; may be reactive >35 U/mL Positive - Risk factor for thrombosis Test Performed at: [facility] [address] [address] Teodoro Shore M.D., Ph.D.,Director of Laboratories Blood Venipuncture / Unknown 05/04/2019 12:08 PM EDT 05/04/2019 12:13 PM EDT us Jana Escalera MD LAB BLOOD ORDERABLES Final Re sult [facility] * (ABNORMAL) Lupus anticoagulant (BH GH L LMW YH) (05/04/2019 12:08 PM EDT) LA1 Screening 83.9(H) 30.0 - 42.0 seconds 05/10/2019 11:30 AM EDT [facility] LA1 + Normal Plasma 40.9 30.0 - 42.0 seconds 05/10/2019 11:30 AM EDT [facility] LA2 Confirmation 51.7(H) 29.0 - 35.0 seconds 05/10/2019 11:30 AM EDT [facility] LA2 + Normal Plasma 36.4(H) 29.0 - 35.0 seconds 05/10/2019 11:30 AM EDT [facility] LA1/LA2 Ratio 1.12 0.90 - 1.30 05/10/2019 11:30 AM EDT [facility] LA Interpretation Elevated LA1 screening/LA2 confirmation result with almost complete correction on mixing studies. The findings are suggestive of possible factor deficiency versus oral anticoagulation therapy. Correlation with clinical findings is advised. Reviewed by Leonardo Wagner on 05.10.2019 11.09 05/10/2019 11:30 AM EDT [facility] Blood Venipuncture / Unknown 05/04/2019 12:08 PM EDT 05/04/2019 12:13 PM EDT Narrative [facility] - 05/10/2019 11:30 AM [...] MD LAB BLOOD ORDERABLES Final Re sult [facility] [address] [place], [place] [id number] * Cardiolipin Abs, IgA, IgG, IgM (BH GH LMW Q YH) (05/04/2019 12:08 PM EDT) Cardiolipin IgA <11 <=11 APL 9 4:12 AM EDT [email or web address] Comment: Cardiolipin Ab (IgA) Reference Range: Value Interpretation < or = 11 Negative 12 - 20 Indeterminate 21 - 80 Low to Medium Positive > 80 High Positive Cardiolipin IgG <14 <=14 GPL 9 4:12 AM EDT [email or web address] Comment: Cardiolipin Ab (IgG) Reference Range: Value Interpretation < or = 14 Negative 15 - 20 Indeterminate 21 - 80 Low to Medium Positive > 80 High Positive Cardiolipin IgM <12 <=12 MPL 9 4:12 AM EDT [email or web address] Comment: Cardiolipin Ab (IgM) Reference Range: Value Interpretation < or = 12 Negative 13 - 20 Indeterminate 21 - 80 Low to Medium Positive > 80 High Positive The antiphospholipid antibody syndrome (APS) is [...] drug therapy or aging. Test Performed at: [facility] [address] [place] [address] Teodoro Shore M.D., Ph.D.,Director of Laboratories Blood Venipuncture / Unknown 05/04/2019 12:08 PM EDT 05/04/2019 12:13 PM EDT us Jana Escalera MD LAB BLOOD ORDERABLES Final Re sult [email or web address] * (ABNORMAL) Antiphospholipid antibody panel (GH LMW Q) (05/04/2019 12:08 PM EDT) Antiphospholipid Ab Panel Interpretation SEE BELOW 05/06/2019 4:27 AM EDT [email or web address] Comment: The antiphospholipid antibody syndrome (APS) is [...] <9 <=20 SGU 05/06 4:27 AM EDT [facility] B2-Glycoprotein IgA <9 <=20 LILLY 05/06 4:27 AM EDT [facility] B2-Glycoprotein IgM 32(H) <=20 SMU 05/06 4:27 AM EDT [facility] Phosphatidylserine Ab IgA <20 <20 U/mL 05/06/2019 4:27 AM EDT [email or web address] Comment: Phosphatidylserine (IgA) Reference range: <20 U/mL Negative 20-30 U/mL Equivocal - Found in small percentage of the healthy population; may be reactive >30 U/mL Positive - Risk factor for thrombosis Phosphatidylserine Ab IgG <10 <10 U/mL 05/06/2019 4:27 AM EDT [email or web address] Comment: Phosphatidylserine (IgG) Reference range: <10 U/mL Negative 10-20 U/mL Equivocal - Found in small percentage of the healthy population; may be reactive >20 U/mL Positive - Risk factor for thrombosis and loss. Phosphatidylserine Ab IgM <25 <25 U/mL 05/06/2019 4:27 AM EDT [email or web address] Comment: Phosphatidylserine (IgM) Reference range: <25 U/mL Negative 25-35 U/mL Equivocal - Found in small percentage of the healthy population; may be reactive >35 U/mL Positive - Risk factor for thrombosis Cardiolipin IgA <11 <=11 APL 9 4:27 AM EDT [email or web address] Comment: Cardiolipin Ab (IgA) Reference Range: Value Interpretation < or = 11 Negative 12 - 20 Indeterminate 21 - 80 Low to Medium Positive > 80 High Positive Cardiolipin IgG <14 <=14 GPL 9 4:27 AM [facility] Comment: Cardiolipin Ab (IgG) Reference Range: Value Interpretation < or = 14 Negative 15 - 20 Indeterminate 21 - 80 Low to Medium Positive > 80 High Positive Cardiolipin IgM <12 <=12 MPL 9 4:27 AM [facility] Comment: Cardiolipin Ab (IgM) Reference Range: Value Interpretation < or = 12 Negative 13 - 20 Indeterminate 21 - 80 Low to Medium Positive > 80 High Positive Test Performed at: [facility] [address] [address] Teodoro Shore M.D., Ph.D.,Director of Laboratories Blood Venipuncture / Unknown 05/04/2019 12:08 PM EDT 05/04/2019 12:13 PM EDT us Jana Escalera MD LAB BLOOD ORDERABLES Final Re sult [facility] documented in this encounter Visit Diagnoses Diagnosis Granulocytosis- Primary Other elevated white blood cell count documented in this encounter Care Teams Hand Finisher Relationship Specialty Start Date End Date Jace Blake DO [address] [place] [address] PCP - General Family Medicine 08/01/14 documented as of this encounter
--- OUTSIDE RECORDS SUMMARY | 2025-10-03 11:54 | XMS_ITS | Encounter Summary ---
Author Organization [facility] Address [address] [place] [address] Care Team Providers Care Mother Repairer Name Role Phone Jace Blake Primary Care Provider [phone] Encounter Details Date Type Department Care Team (Late Contact Info) Description 04/13/2023 Abstract [facility] [address] [address] Aparna Chang MD [address] [place] [phone] Social History Tobacco Use Types Packs/Day [...] EST Appointment PULMONARY FUNCTION LABORATORY - [address] [phone] 6, Pft Procedure Room 10/09/2025 1:30 PM EST Appointment PUL[facility]CTION LABORATORY - [address] [address] Aparna Chang MD [address] [place] [phone] Hallway, Pft Walk 10/09/2025 2:00 PM EST Office Visit [facility] [address] [address] Aparna Chang MD [address] [place] [phone] 08/22/2026 11:00 AM EDT Follow Up Congestive Heart Failure Program at [address] [place] [phone] Diana Coppola MD [address] [place] [phone] documented as of this encounter Visit Diagnoses Not on filedocumented in this encounter Additional Health Concerns Assessment Noted Time PHQ-9 Depression Total Score: 0 07/10/20 21 10:52 AM EDT documented as of this encounter Care Teams Mother Repairer Relationship Specialty Start Date End Date Jace Blake DO [address] [place] [address] PCP - General Family Medicine 08/01/14 documented as of this encounter
--- OUTSIDE RECORDS SUMMARY | 2025-10-03 11:54 | XMS_ITS | Encounter Summary ---
Author Organization [facility] and [facility] Address [address] [place] [address] Care Team Providers Care Caustic Cresylate Shift Superintendent Name Role Phone Blake, Gary Primary Care Provider [phone] Encounter Details Date Type Department Care Team (Latest Contact Info) Description 08/20/2020 Transcribed Orders [facility] - [address] [address] Aki Ross MD [address] [place] [phone] Chronic diastolic heart failure (HC Code) [...] EST Appointment P[facility] LABORAT[facility] - [address] [phone] 6, Pft Procedure Room 10/09/2025 1:30 PM EST Appointment P[facility] LAB[facility] - [address] [address] Aparna Chang MD [address] [place] [phone] Hallway, Pft Walk 10/09/2025 2:00 PM EST Office Visit [facility] [address] [phone] Aparna Chang MD [address] [place] [phone] 08/22/2026 11:00 AM EDT Follow Up Congestive Heart Failure Program at [address] [place] [phone] Diana Coppola MD [address] [place] [phone] documented as of this encounter Procedures Procedure Name Priority Date/Time Associated Diagnosis Comments POTASSIUM Routine 08/20/2020 3:45 PM EDT Chronic diastolic heart failure (HC Code) documented in this encounter Results * Potassium (08/20/2020 3:45 PM EDT) Potassium 4.2 3.5 - 5.1 mmol/L 08/20/2020 4:39 PM EDT [facility] Blood Venipuncture / Unknown 08/20/2020 3:45 PM EDT 08/20/2020 3:45 PM EDT us Aki Ross MD LAB BLOOD [place] [address], [facility] [phone] documented in this encounter Visit Diagnoses Diagnosis Chronic diastolic heart failure (HC Code) (HC CODE)- Primary Chronic diastolic heart failure documented in this encounter Care Teams Caustic Cresylate Shift Superintendent Relationship Specialty Start Date End Date Jace Blake DO [address] [place] [address] PCP - General Family Medicine 08/01/14 documented as of this encounter
--- OUTSIDE RECORDS SUMMARY | 2025-10-03 11:54 | XMS_ITS | Encounter Summary ---
Author Organization [facility] Address [address] [place] [address] Care Team Providers Care Demonstrator Sales Name Role Phone Blake, Gary Primary Care Provider [phone] Encounter Details Date Type Department Care Team (Late st Contact Info) Description 04/27/2023 Abstract [facility], [address] [address] Gerardo Vigil MD [address] [place] [phone] Social History Tobacco Use Types Packs/Day Years [...] EST Appointment P[facility] LAB[facility] - [address] [place] [address] 6, Pft Procedure Room 10/09/2025 1:30 PM EST Appointment PUL[facility] LAB[facility]AT[facility] - [address] [address] Aparna Chang MD [address] [place] [phone] Hallway, Pft Walk 10/09/2025 2:00 PM EST Office Visit [facility] [address] [address] Aparna Chang MD [address] [place] [phone] 08/22/2026 11:00 AM EDT Follow Up [facility] at [address] [place] [address] Diana Coppola MD [address] [place] [phone] documented as of this encounter Visit Diagnoses Not on filedocumented in this encounter Additional Health Concerns Assessment Noted Time PHQ-9 Depression Total Score: 0 07/10/20 21 10:52 AM EDT documented as of this encounter Care Teams Demonstrator Sales Relationship Specialty Start Date End Date Jace Blake DO [address] [place] [address] PCP - General Family Medicine 08/01/14 documented as of this encounter
--- OUTSIDE RECORDS SUMMARY | 2025-10-03 11:54 | XMS_ITS | Encounter Summary ---
Author Organization [facility] Address [address] [place] [address] Care Team Providers Care Linker Up Name Role Phone HaydenJace Primary Care Provider [phone] Encounter Details Date Type Department Care Team (Latest Contact Info) Description 09/17/2020 Evaluation [facility] [address] [place] [phone] Jessica Chirinos RN Pacemaker (Primary Dx) Social [...] PM EST Appointment PUL[facility]CTION LAB[facility] - [facility] [address] [place] [address] 6, Pft Procedure Room 10/09/2025 1:30 PM EST Appointment PUL[facility] LABORATORY - [address] [address] Aparna Chang MD [address] [place] [phone] Hallway, Pft Walk 10/09/2025 2:00 PM EST Office Visit [facility] [address] [address] Aparna Chang MD [address] [place] [phone] 08/22/2026 11:00 AM EDT Follow Up [facility] at [address] [place] [phone] Diana Coppola MD [address] [place] [phone] documented as of this encounter Visit Diagnoses Diagnosis Pacemaker- Primary Cardiac pacemaker in situ documented in this encounter Care Teams Linker Up Relationship Specialty Start Date End Date Jace Blake DO [address] [place] [address] PCP - General Family Medicine 08/01/14 documented as of this encounter
--- OUTSIDE RECORDS SUMMARY | 2025-10-03 11:54 | XMS_ITS | Encounter Summary ---
Author Organization [facility] Address [address] [place] [address] Care Team Providers Care Crane Man Name Role Phone Jace Blake MD Primary Care Provider Provider, Rachid GARCIA Unavailable Unavaila Andres Topete MD Unavailable Aki Ross MD Unavailable [phone] Ursula Boo MD Unavailable Rocio Youssef PA-C Unavailable Emeterio Valencia MD Unavailable Diana Coppola MD Unavailable Pcp, No Primary Care Provider Unavailabl e Aparna Chang MD Unavailable [phone] Encounter Details Date Type Department Care Team (Late st Contact Info) Description 04/15/2023 Scanned Document [facility] [place] [address] [place] [phone] Provider, External, [address] [place] [address] Social History Tobacco Use Types Packs/Day Years [...] documented as of this encounter Care Teams Crane Man Relationship Specialty Start Date End Date Jace Blake MD [address] [place] [address] PCP - General Psychiatry, General 05/04/17 07/16/25 Pcp, No PCP - General General Medicine 07/17/25 Provider, MD Rachid 04/27/17 Andres Lakhani MD [address] [place] [address] Photographic Reproduction Technician Cardiology 07/08/19 Aki Ross MD [address] [place] [address] Primary Photographic Reproduction Technician Cardiovascular Disease 07/08/19 Ursula Boo MD [address] [place] [address] Gastroenterology 06/07/20 Rocio Youssef PA-C [address] [address] Physician Rotary Machine Operator Gastroenterology 06/07/20 Emeterio Valencia MD [address] [place] [address] Clinician Pulmonary Disease 06/20/20 08/22/25 Diana Coppola MD [address] [place] [phone] Internal Medicine 03/22/25 Aparna Chang MD [address] [place] [phone] Physician Pulmonary Disease 08/23/25 documented as of this encounter
--- OUTSIDE RECORDS SUMMARY | 2025-10-03 11:54 | XMS_ITS | Encounter Summary ---
Author Organization [facility] and [facility] Address [address] [place] [address] Care Team Providers Care City Jailer Name Role Phone HaydenJace Primary Care Provider [phone] Encounter Details Date Type Department Care Team (Late st Contact Info) Description 09/22/2016 Scanned Document [facility] at [address] [address] Chino Cordova MD PhD [address] [place] [phone] Social History Tobacco Use Types Packs/Day Years [...] EST Appointment P[facility] LAB[facility]AT[facility] - [address] [address], Pft Procedure Room 10/09/2025 1:30 PM EST Appointment [facility] - [address] [address] Aparna Chang MD [address] [place] [phone] Hallway, Pft Walk 10/09/2025 2:00 PM EST Office Visit [facility] [address] [address] Aparna Chang MD [address] [place] [phone] 08/22/2026 11:00 AM EDT Follow Up Congestive Heart Failure Program at [address] [place] [phone] Diana Coppola MD [address] [place] [phone] documented as of this encounter Visit Diagnoses Not on filedocumented in this encounter Care Teams City Jailer Relationship Specialty Start Date End Date Jace Blake DO [address] [place] [address] PCP - General Family Medicine 08/01/14 documented as of this encounter
--- OUTSIDE RECORDS SUMMARY | 2025-10-03 11:54 | XMS_ITS | Encounter Summary ---
Author Organization [facility] Address [address] [place] [address] Care Team Providers Care Director Business Integration Name Role Phone Miguel Angel Blakey Primary Care Provider [phone] Encounter Details Date Type Department Care Team (Late st Contact Info) Description 05/11/2017 Scanned Document [facility] at [address] [place] [address] Teodoro Hollingsworth MD [address] [place] [phone] Social History Tobacco Use Types Packs/Day Years [...] EST Appointment P[facility] LAB[facility]AT[facility] - [address] [address], Pft Procedure Room 10/09/2025 1:30 PM EST Appointment P[facility] - [address] [address] Aparna Chang MD [address] [place] [phone] Hallway, Pft Walk 10/09/2025 2:00 PM EST Office Visit [facility] [address] [address] Aparna Chang MD [address] [place] [phone] 08/22/2026 11:00 AM EDT Follow Up [facility] at [address] [place] [phone] Diana Coppola MD [address] [place] [phone] documented as of this encounter Visit Diagnoses Not on filedocumented in this encounter Care Teams Director Business Integration Relationship Specialty Start Date End Date Jace Blake DO [address] [place] [address] PCP - General Family Medicine 08/01/14 documented as of this encounter
--- OUTSIDE RECORDS SUMMARY | 2025-10-03 11:54 | XMS_ITS | Encounter Summary ---
Author Organization [facility] and [facility] Address [address] [place] [phone] Care Team Providers Care Heel Dipper Name Role Phone HaydenJace Primary Care Provider [phone] Encounter Details Date Type Department Care Team (Late st Contact Info) Description 12/24/2020 Scanned Document [facility] at [address] [place] [phone] Chela Ramírez MD [address] [phone] Social History Tobacco Use Types [...] EST Appointment PUL[facility]CTION LABORAT[facility] - [address] [address], Pft Procedure Room 10/09/2025 1:30 PM EST Appointment P[facility] LAB[facility] - [address] [address] Aparna Chang MD [address] [place] [phone] Hallway, Pft Walk 10/09/2025 2:00 PM EST Office Visit [facility] [address] [address] Aparna Chang MD [address] [place] [phone] 08/22/2026 11:00 AM EDT Follow Up Congestive Heart Failure Program at [address] [place] [address] Diana Coppola MD [address] [place] [phone] documented as of this encounter Visit Diagnoses Not on filedocumented in this encounter Additional Health Concerns Assessment Noted Time PHQ-9 Depression Total Score: 0 10/03/20 20 12:10 PM EST documented as of this encounter Care Teams Heel Dipper Relationship Specialty Start Date End Date Jace Blake DO [address] [place] [address] PCP - General Family Medicine 08/01/14 documented as of this encounter
--- OUTSIDE RECORDS SUMMARY | 2025-10-03 11:54 | XMS_ITS | Encounter Summary ---
Author Organization [facility] and [facility] Address [address] [place] [address] Care Team Providers Care Door Slinger Name Role Phone HaydenJace Primary Care Provider [phone] Encounter Details Date Type Department Care Team (Late st Contact Info) Description 09/22/2016 Scanned Document [facility] at [address] [address] Chino Cordova MD PhD [address] [place] [phone] Social History Tobacco Use Types Packs/Day Years [...] EST Appointment [facility] - [address] [address] 6, Pft Procedure Room 10/09/2025 1:30 PM EST Appointment [facility] - [address] [address] Aparna Chang MD [address] [place] [phone] Hallway, Pft Walk 10/09/2025 2:00 PM EST Office Visit [facility] [address] [address] Aparna Chang MD [address] [place] [phone] 08/22/2026 11:00 AM EDT Follow Up Congestive Heart Failure Program at [address] [place] [phone] Diana Coppola MD [address] [place] [phone] documented as of this encounter Visit Diagnoses Not on filedocumented in this encounter Care Teams Door Slinger Relationship Specialty Start Date End Date Jace Blake DO [address] [place] [address] PCP - General Family Medicine 08/01/14 documented as of this encounter
--- OUTSIDE RECORDS SUMMARY | 2025-10-03 11:54 | XMS_ITS | Encounter Summary ---
Author Organization [facility] and [facility] Address [address] [place] [address] Care Team Providers Care Garage Door Installer Name Role Phone HaydenJace Primary Care Provider [phone] Encounter Details Date Type Department Care Team (Late st Contact Info) Description 07/18/2015 Scanned Document [facility] at [address] [place] [place] [address] Chino Cordova MD PhD [address] [place] [phone] Social History Tobacco Use Types Packs/Day Years [...] EST Appointment [facility] - [address] [place] [address] 6, Pft Procedure Room 10/09/2025 1:30 PM EST Appointment [facility] - [address] [address] Aparna Chang MD [address] [place] [phone] Hallway, Pft Walk 10/09/2025 2:00 PM EST Office Visit [facility] [address] [address] Aparna Chang MD [address] [place] [phone] 08/22/2026 11:00 AM EDT Follow Up [facility] at [address] [place] [phone] Diana Coppola MD [address] [place] [phone] documented as of this encounter Visit Diagnoses Not on filedocumented in this encounter Care Teams Garage Door Installer Relationship Specialty Start Date End Date Jace Blake DO [address] [place] [address] PCP - General Family Medicine 08/01/14 documented as of this encounter
--- OUTSIDE RECORDS SUMMARY | 2025-10-03 11:54 | XMS_ITS | Encounter Summary ---
Author Organization [facility] and [facility] Address [address] [place] [address] Care Team Providers Care Vision Therapist Name Role Phone HaydenJace Primary Care Provider [phone] Encounter Details Date Type Department Care Team (Late st Contact Info) Description 06/12/2015 Scanned Document [facility] at [address] [place] [address] Chino Cordova MD PhD [address] [place] [phone] Social History Tobacco Use Types Packs/Day Years [...] EST Appointment [facility] - [address] [place] [address] 6, Pft Procedure Room 10/09/2025 1:30 PM EST Appointment [facility] - [address] [address] Aparna Chang MD [address] [place] [phone] Hallway, Pft Walk 10/09/2025 2:00 PM EST Office Visit [facility] [address] [address] Aparna Chang MD [address] [place] [phone] 08/22/2026 11:00 AM EDT Follow Up [facility] at [address] [place] [phone] Diana Coppola MD [address] [place] [phone] documented as of this encounter Visit Diagnoses Not on filedocumented in this encounter Care Teams Vision Therapist Relationship Specialty Start Date End Date Jace Blake DO [address] [place] [address] PCP - General Family Medicine 08/01/14 documented as of this encounter
--- OUTSIDE RECORDS SUMMARY | 2025-10-03 11:54 | XMS_ITS | Encounter Summary ---
Author Organization [facility] and [facility] Address [address] [place] [place] [address] Care Team Providers Care Therapeutic Dietitian Name Role Phone Miguel Angel Blakey Primary Care Provider [phone] Encounter Details Date Type Department Care Team (Late st Contact Info) Description 06/04/2017 Scanned Document [facility] at [address] [place] [address] Teodoro Hollingsworth MD [address] [place] [phone] Social History Tobacco Use Types Packs/Day Years [...] EST Appointment [facility] - [address] [address], Pft Procedure Room 10/09/2025 1:30 PM EST Appointment [facility] - [address] [address] Aparna Chang MD [address] [place] [phone] Hallway, Pft Walk 10/09/2025 2:00 PM EST Office Visit [facility] [address] [address] Aparna Chang MD [address] [place] [phone] 08/22/2026 11:00 AM EDT Follow Up [facility] at [address] [place] [address] 839170 Diana Coppola MD [address] [place] [phone] documented as of this encounter Visit Diagnoses Not on filedocumented in this encounter Care Teams Therapeutic Dietitian Relationship Specialty Start Date End Date Jace Blake DO [address] [place] [address] PCP - General Family Medicine 08/01/14 documented as of this encounter
--- OUTSIDE RECORDS SUMMARY | 2025-10-03 11:54 | XMS_ITS | Encounter Summary ---
Author Organization [facility] and [facility] Address [address] [place] [address] Care Team Providers Care Event Decorator And Designer Name Role Phone Blake, Gary Primary Care Provider [phone] Encounter Details Date Type Department Care Team (Late st Contact Info) Description 08/23/2020 Abstract [facility] [address] [place] [address], 2nd floor [facility], [address] [place] [address] Aparna Chang MD [address] [place] [phone] Social History Tobacco Use Types Packs/Day [...] EST Appointment [facility] - [address] [phone] 6, Pft Procedure Room 10/09/2025 1:30 PM EST Appointment [facility] - [address] [address] Aparna Chang MD [address] [place] [phone] Hallway, Pft Walk 10/09/2025 2:00 PM EST Office Visit [facility] [address] [address] Aparna Chang MD [address] [place] [phone] 08/22/2026 11:00 AM EDT Follow Up [facility] at [address] [place] [phone] Diana Coppola MD [address] [place] [phone] documented as of this encounter Visit Diagnoses Not on filedocumented in this encounter Care Teams Event Decorator And Designer Relationship Specialty Start Date End Date Jace Blake DO [address] [place] [address] PCP - General Family Medicine 08/01/14 documented as of this encounter
--- OUTSIDE RECORDS SUMMARY | 2025-10-03 11:54 | XMS_ITS | Encounter Summary ---
Author Organization [facility] and [facility] Address [address] [place] [address] Care Team Providers Care Audio Visual Aide Name Role Phone Miguel Angel Blakey Primary Care Provider [phone] Encounter Details Date Type Department Care Team (Late st Contact Info) Description 05/11/2017 Scanned Document [facility] at [address] [place] [address] Teodoro Hollingsworth MD [address] [place] [phone] Social History Tobacco Use Types Packs/Day Years [...] EST Appointment [facility] - [address] [address] 6, Pft Procedure Room 10/09/2025 1:30 PM EST Appointment [facility] - [address] [address] Aparna Chang MD [address] [place] [phone] Hallway, Pft Walk 10/09/2025 2:00 PM EST Office Visit [facility] [address] [address] Aparna Chang MD [address] [place] [phone] 08/22/2026 11:00 AM EDT Follow Up [facility] at [address] [place] [phone] Diana Coppola MD [address] [place] [phone] documented as of this encounter Visit Diagnoses Not on filedocumented in this encounter Care Teams Audio Visual Aide Relationship Specialty Start Date End Date Jace Blake DO [address] [place] [address] PCP - General Family Medicine 08/01/14 documented as of this encounter
--- OUTSIDE RECORDS SUMMARY | 2025-10-03 11:54 | XMS_ITS | Encounter Summary ---
Author Organization [facility] and [facility] Address [address] [place] [address] Care Team Providers Care Technical Support Assistant Name Role Phone Miguel Angel Blakey Primary Care Provider [phone] Encounter Details Date Type Department Care Team (Late st Contact Info) Description 07/19/2016 Abstract [facility] at [address] [place] [address] Teodoro Hollingsworth MD [address] [place] [phone] Social History Tobacco Use Types Packs/Day Years [...] EST Appointment [facility] - [address] [phone] 6, Pft Procedure Room 10/09/2025 1:30 PM EST Appointment [facility] - [address] [address] Aparna Chang MD [address] [place] [phone] Hallway, Pft Walk 10/09/2025 2:00 PM EST Office Visit [facility] [address] [address] Aparna Chang MD [address] [place] [phone] 08/22/2026 11:00 AM EDT Follow Up [facility] at [address] [place] [phone] Diana Coppola MD [address] [place] [phone] documented as of this encounter Visit Diagnoses Not on filedocumented in this encounter Care Teams Technical Support Assistant Relationship Specialty Start Date End Date Jace Blake DO [address] [place] [address] PCP - General Family Medicine 08/01/14 documented as of this encounter
--- OUTSIDE RECORDS SUMMARY | 2025-10-03 11:54 | XMS_ITS | Encounter Summary ---
Author Organization [facility] and [facility] Address [address] [place] [address] Care Team Providers Care Cylinder Loader Name Role Phone Hayden Jace Primary Care Provider [phone] Encounter Details Date Type Department Care Team (Latest Contact Info) Description 04/30/2022 Transcribed Orders [facility] [address] [place] [address] Tl Mancera APRN [address] [phone] Iron deficiency anemia secondary to [...] EST Appointment [facility] - [address] [place] [address] 6, Pft Procedure Room 10/09/2025 1:30 PM EST Appointment [facility] - [address] [place] [address] Aparna Chang MD [address] [place] [phone] Hallway, Pft Walk 10/09/2025 2:00 PM EST Office Visit [facility] [address] [address] Aparna Chang MD [address] [place] [phone] 08/22/2026 11:00 AM EDT Follow Up Congestive Heart Failure Program at [address] [place] [address] Diana Coppola MD [address] [place] [phone] documented as of this encounter Visit Diagnoses Diagnosis Iron deficiency anemia secondary to inadequate dietary iron intake- Primary documented in this encounter Additional Health Concerns Assessment Noted Time PHQ-9 Depression Total Score: 0 07/10/20 21 10:52 AM EDT documented as of this encounter Care Teams Cylinder Loader Relationship Specialty Start Date End Date Jace Blake DO [address] [place] [address] PCP - General Family Medicine 08/01/14 documented as of this encounter
--- OUTSIDE RECORDS SUMMARY | 2025-10-03 11:54 | XMS_ITS | Encounter Summary ---
Author Organization [facility] and [facility] Address [address] [place] [address] Care Team Providers Care Loom Repairer Name Role Phone Blake, Gary Primary Care Provider [phone] Encounter Details Date Type Department Care Team (Latest Contact Info) Description 04/30/2023 Transcribed Orders [facility] [address] [place] [address] Aki Ross MD [address] [phone] Chronic diastolic heart failure (HC [...] EST Appointment [facility] - [address] [address] 6, Pft Procedure Room 10/09/2025 1:30 PM EST Appointment [facility] - [address] [address] Aparna Chang MD [address] [place] [phone] Hallway, Pft Walk 10/09/2025 2:00 PM EST Office Visit [address] [address] Aparna Chang MD [address] [place] [phone] 08/22/2026 11:00 AM EDT Follow Up Congestive Heart Failure Program at [address] [place] [phone] Diana Coppola MD [address] [place] [phone] documented as of this encounter Results * (ABNORMAL) NT-proBrain natriuretic peptide (04/30/2023 11:46 AM EDT) NT-proBNP 280.0(H) <125.0 pg/mL 04/30/2023 1:14 PM EDT [facility] Blood Venipuncture / Unknown 04/30/2023 11:46 AM EDT 04/30/2023 11:46 AM EDT us Aki Ross MD LAB BLOOD ORDERABLES Final Res ult [place] [phone], [facility] [phone] documented in this encounter Visit Diagnoses Diagnosis Chronic diastolic heart failure (HC Code) (HC CODE)- Primary Chronic diastolic heart failure documented in this encounter Additional Health Concerns Assessment Noted Time PHQ-9 Depression Total Score: 0 08/18/20 21 10:52 AM EDT documented as of this encounter Care Teams Loom Repairer Relationship Specialty Start Date End Date Jace Blake DO [address] [place] [address] PCP - General Family Medicine 08/01/14 documented as of this encounter
--- OUTSIDE RECORDS SUMMARY | 2025-10-03 11:54 | XMS_ITS | Encounter Summary ---
Author Organization [facility] Address [address] [place] [address] Care Team Providers Care Billing Rep Name Role Phone Miguel Angel Blakey Primary Care Provider [phone] Encounter Details Date Type Department Care Team (Late st Contact Info) Description 05/27/2017 Scanned Document [facility] at [address] [place] [address] Teodoro Hollingsworth MD [address] [place] [phone] Social History Tobacco Use Types Packs/Day Years [...] EST Appointment [facility] - [address] [address] 6, Pft Procedure Room 10/09/2025 1:30 PM EST Appointment [facility] - [address] [address] Aparna Chang MD [address] [place] [phone] Hallway, Pft Walk 10/09/2025 2:00 PM EST Office Visit [facility] [address] [address] Aparna Chang MD [address] [place] [phone] 08/22/2026 11:00 AM EDT Follow Up [facility] at [address] [place] [address] [phone] Diana Coppola MD [address] [place] [phone] documented as of this encounter Visit Diagnoses Not on filedocumented in this encounter Care Teams Billing Rep Relationship Specialty Start Date End Date Jace Blake DO [address] [place] [address] PCP - General Family Medicine 08/01/14 documented as of this encounter
--- OUTSIDE RECORDS SUMMARY | 2025-10-03 11:54 | XMS_ITS | Encounter Summary ---
Author Organization [facility] and [facility] Address [address] [place] [address] Care Team Providers Care Blower And Compressor Assembler Name Role Phone HaydenJace Primary Care Provider [phone] Encounter Details Date Type Department Care Team (Late st Contact Info) Description 09/18/2015 Scanned Document [facility] at [address] [place] [address] Chino Cordova MD PhD [address] [place] [phone] Social History Tobacco Use Types Packs/Day Years [...] EST Appointment [facility] - [address] [place] [address] 6, Pft Procedure Room 10/09/2025 1:30 PM EST Appointment [facility] - [address] [address] Aparna Chang MD [address] [place] [phone] Hallway, Pft Walk 10/09/2025 2:00 PM EST Office Visit [facility] [address] [address] Aparna Chang MD [address] [place] [phone] 08/22/2026 11:00 AM EDT Follow Up [facility] at [address] [place] [address] [phone] Diana Coppola MD [address] [place] [phone] documented as of this encounter Visit Diagnoses Not on filedocumented in this encounter Care Teams Blower And Compressor Assembler Relationship Specialty Start Date End Date Jace Blake DO [address] [place] [address] PCP - General Family Medicine 08/01/14 documented as of this encounter"
--- OUTSIDE RECORDS SUMMARY | 2025-10-03 11:54 | XMS_ITS | Encounter Summary ---
Author Organization [facility] and [facility] Address [address] [place] [address] Care Team Providers Care Provisioning Analyst Name Role Phone HaydenJace Primary Care Provider [phone] Encounter Details Date Type Department Care Team (Late st Contact Info) Description 06/02/2023 Scanned Document [facility] [address] [place] [address] External, Provider Social History Tobacco Use Types [...] EST Appointment [facility] - [address] [address], Pft Procedure Room 10/09/2025 1:30 PM EST Appointment [facility] - [address] [address] Aparna Chang MD [address] [place] [phone] Mary Swansonayan Walk 10/09/2025 2:00 PM EST Office Visit [facility] [address] [place] [address] Aparna Chang MD [address] [place] [phone] 08/22/2026 11:00 AM EDT Follow Up Congestive Heart Failure Program at [address] [place] [address] [phone] Diana Coppola MD [address] [place] [phone] documented as of this encounter Procedures Procedure Name Priority Date/Time Associated Diagnosis Comments CARDIAC MISC. RESULT SCAN Routine 06/02/2023 documented in this encounter Results * Cardiac Misc.?? Result Scan (06/02/2023) us Provider External CV CARDIAC REPORT (CVR) Final Result documented in this encounter Visit Diagnoses Not on filedocumented in this encounter Additional Health Concerns Assessment Noted Time PHQ-9 Depression Total Score: 0 07/10/20 21 10:52 AM EDT documented as of this encounter Care Teams Provisioning Analyst Relationship Specialty Start Date End Date Jace Blake DO [address] [place] [address] PCP - General Family Medicine 08/01/14 documented as of this encounter
--- OUTSIDE RECORDS SUMMARY | 2025-10-03 11:54 | XMS_ITS | Encounter Summary ---
Author Organization [facility] and [facility] Address [address] [place] [address] Care Team Providers Care Brownfield Redevelopment Specialist Name Role Phone Blake, Gary Primary Care Provider [phone] Encounter Details Date Type Department Care Team (Late Contact Info) Description 06/05/2023 Transcribed Orders [facility]ATION [address] [phone] Meghana Hunter MD [address] [place] [phone] Social History Tobacco Use Types Packs/Day [...] EST Appointment [facility] - [address] [address], Pft Procedure Room 10/09/2025 1:30 PM EST Appointment [facility] - [address] [address] Aparna Chang MD [address] [place] [phone] Hallway, Pft Walk 10/09/2025 2:00 PM EST Office Visit [facility] [address] [address] Aparna Chang MD [address] [place] [phone] 08/22/2026 11:00 AM EDT Follow Up Congestive Heart Failure Program at [address] [place] [address] [phone] Diana Coppola MD [address] [place] [phone] documented as of this encounter Visit Diagnoses Not on filedocumented in this encounter Additional Health Concerns Assessment Noted Time PHQ-9 Depression Total Score: 0 07/10/20 21 10:52 AM EDT documented as of this encounter Care Teams Brownfield Redevelopment Specialist Relationship Specialty Start Date End Date Jace Blake DO [address] [place] [address] PCP - General Family Medicine 08/01/14 documented as of this encounter
--- OUTSIDE RECORDS SUMMARY | 2025-10-03 11:54 | XMS_ITS | Encounter Summary ---
Author Organization [facility] and [facility] Address [address] [place] [address] Care Team Providers Care Fruit Bar Maker Name Role Phone Blake, Gary Primary Care Provider [phone] Encounter Details Date Type Department Care Team (Latest Contact Info) Description 08/27/2020 Transcribed Orders [facility] [address] [place] [address] Meghana Hunter MD [address] [place] [phone] Acquired polyneuropathy (HC Code) (Primary Dx); [...] EST Appointment [facility] - [address] [address] 6, Pft Procedure Room 10/09/2025 1:30 PM EST Appointment [facility] - [address] [address] Aparna Chang MD [address] [place] [phone] Hallway, Pft Walk 10/09/2025 2:00 PM EST Office Visit [facility] [address] [address] Aparna Chang MD [address] [place] [phone] 08/22/2026 11:00 AM EDT Follow Up Congestive Heart Failure Program at [address] [place] [phone] Diana Coppola MD [address] [place] [phone] documented as of this encounter Results [...] LABORATORY Comment: INTERPRETIVE INFORMATION: Dermatomyositis and Polymyositis Panel If present, myositis-specific antibodies (MSA) are specific [...] . MAA Helga-1 (histidyl-tRNA synthetase) Ab, IgG . . X PL-12 (alanyl-tRNA synthetase) Antibody . . X PL-7 (threonyl-tRNA synthetase) Antibody . . X EJ (glycyl-tRNA synthetase) Antibody . . . . X OJ (isoleucyl-tRNA synthetase) Antibody . . X SRP (Signal Recognition Particle) Ab . . . . X Mi-2 (nuclear helicase protein) Antibody . . X P155/140 Antibody . . . . . . . . . . . . . X TIF-1 gamma (155 kDA) Ab . . . . . . . . . X SAE1 (SUMO activating enzyme) Ab . . . . . . X MDA5 (CADM-140) Ab . . . . . . . . . . . . . X NXP2 (Nuclear matrix protein-2) Ab . . . . . X Test developed and characteristics determined by [email or web address]. See Compliance Statement D: [employer] Semi/ Helga-1 (Histidyl-tRNA Synthetase) Ab, IgG 0 0 - 40 AU/mL 09/13/2020 2:32 PM EDT [facility] Comment: INTERPRETIVE INFORMATION: Helga-1 Antibody, IgG 29 AU/mL or less.........Negative 30-40 AU/mL..............Equivocal 41 AU/mL or greater......Positive Presence of Helga-1 (antihistidyl transfer RNA [t-RNA] synthetase) antibody is associated with polymyositis and may also be seen in patients with dermatomyositis. Helga-1 antibody is associated with pulmonary involvement (interstitial lung disease), Raynaud phenomenon, arthritis, and emergency generator mechanic's hands (implicated in antisynthetase syndrome). PL-12 (alanyl-tRNA synthetase) Antibody Negative Negative 09/13/2020 2:32 PM EDT [facility] PL-7 (threonyl-tRNA synthetase) Antibody Negative Negative 09/13/2020 2:32 PM EDT [facility] OJ (isoleucyl-tRNA synthetase) Antibody Negative Negative 09/13/2020 2:32 PM EDT [facility] EJ (glycyl-tRNA synthetase) Antibody Negative Negative 09/13/2020 2:32 PM EDT [facility] SRP (Signal Recognition Particle) Ab Negative Negative 09/13/2020 2:32 PM EDT [facility] Mi-2 (nuclear helicase protein) Antibody Negative Negative 09/13/2020 2:32 PM EDT [facility] P155/140 Antibody Negative Negative 020 2:32 PM EDT [facility] Comment: Performed by [email or web address], [address] [place] [id number] [email or web address], Laura Coleman MD, Lab. 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
--- OUTSIDE RECORDS SUMMARY | 2025-10-03 11:54 | XMS_ITS | Encounter Summary ---
Author Organization [facility] and [facility] Address [address] [place] [address] Care Team Providers Care Pulverizer Tender Name Role Phone HaydenJaec Primary Care Provider [phone] Encounter Details Date Type Department Care Team (Latest Contact Info) Description 06/10/2017 Transcribed Orders [facility] [address] [place] [address] Aki Ross MD [address] [phone] Paroxysmal atrial fibrillation (Primary Dx) [...] EST Appointment [facility] - [address] [address] 6, Pft Procedure Room 10/09/2025 1:30 PM EST Appointment [facility] - [address] [address] Aparna Chang MD [address] [place] [phone] Hallway, Pft Walk 10/09/2025 2:00 PM EST Office Visit [facility] [address] [address] Aparna Chang MD [address] [place] [phone] 08/22/2026 11:00 AM EDT Follow Up Congestive Heart Failure Program at [address] [place] [address] [phone] Diana Coppola MD [address] [place] [phone] documented as of this encounter Visit Diagnoses Diagnosis Paroxysmal atrial fibrillation (HC Code) (HC CODE)- Primary Atrial fibrillation documented in this encounter Care Teams Pulverizer Tender Relationship Specialty Start Date End Date Jace Blake DO [address] [place] [address] PCP - General Family Medicine 08/01/14 documented as of this encounter
--- OUTSIDE RECORDS SUMMARY | 2025-10-03 11:54 | XMS_ITS | Encounter Summary ---
Author Organization [facility] and [facility] Address [address] [place] [address] Care Team Providers Care Casino Cashier Name Role Phone Jace Blake DO Primary Care Provider [phone] Encounter Details Date Type Department Care Team (Late st Contact Info) Description 03/27/2017 Scanned Document [facility] at [address] [place] [address] Narda Candelaria PA [address] [place] [phone] Social History Tobacco Use Types Packs/Day Years [...] EST Appointment [facility] - [address] [address], Pft Procedure Room 10/09/2025 1:30 PM EST Appointment [facility] - [address] [address] Aparna Chang MD [address] [place] [phone] Hallway, Pft Walk 10/09/2025 2:00 PM EST Office Visit [facility] [address] [address] Aparna Chang MD [address] [place] [phone] 08/22/2026 11:00 AM EDT Follow Up [facility] at [address] [place] [address] [phone] Diana Coppola MD [address] [place] [phone] documented as of this encounter Visit Diagnoses Not on filedocumented in this encounter Care Teams Casino Cashier Relationship Specialty Start Date End Date Jace Blake DO [address] [place] [address] PCP - General Family Medicine 08/01/14 documented as of this encounter
--- OUTSIDE RECORDS SUMMARY | 2025-10-03 11:54 | XMS_ITS | Encounter Summary ---
Author Organization [facility] and [facility] Address [address] [place] [address] Care Team Providers Care Reconciling Clerk Name Role Phone HaydenJace Primary Care Provider [phone] Encounter Details Date Type Department Care Team (Late st Contact Info) Description 09/22/2016 Scanned Document [facility] at [address] [address] Chino Cordova MD PhD [address] [place] [phone] Social History Tobacco Use Types Packs/Day Years [...] EST Appointment [facility] - [address] [address], Pft Procedure Room 10/09/2025 1:30 PM EST Appointment [facility] - [address] [address] Aparna Chang MD [address] [place] [phone] Hallway, Pft Walk 10/09/2025 2:00 PM EST Office Visit [facility] [address] [address] Aparna Cahng MD [address] [place] [phone] 08/22/2026 11:00 AM EDT Follow Up Congestive Heart Failure Program at [address] [place] [address] [phone] Diana Coppola MD [address] [place] [phone] documented as of this encounter Visit Diagnoses Not on filedocumented in this encounter Care Teams Reconciling Clerk Relationship Specialty Start Date End Date Jace Blake DO [address] [place] [address] PCP - General Family Medicine 08/01/14 documented as of this encounter
--- OUTSIDE RECORDS SUMMARY | 2025-10-03 11:54 | XMS_ITS | Encounter Summary ---
Author Organization [facility] and [facility] Address [address] [place] [address] Care Team Providers Care Systems Eng Name Role Phone Blake, Gary Primary Care Provider [phone] Encounter Details Date Type Department Care Team (Late st Contact Info) Description 08/23/2020 Abstract [facility] [address] [place] [address], 2nd floor [facility], [address] [place] [address] Aparna Chang MD [address] [place] [phone] Social History Tobacco Use Types Packs/Day [...] EST Appointment [facility] - [address] [phone] 6, Pft Procedure Room 10/09/2025 1:30 PM EST Appointment [facility] - [address] [address] Aparna Chang MD [address] [place] [phone] Hallway, Pft Walk 10/09/2025 2:00 PM EST Office Visit [facility] [address] [address] Aparna Chang MD [address] [place] [phone] 08/22/2026 11:00 AM EDT Follow Up [facility] at [address] [place] [phone] Diana Coppola MD [address] [place] [phone] documented as of this encounter Visit Diagnoses Not on filedocumented in this encounter Care Teams Systems Eng Relationship Specialty Start Date End Date Jace Blake DO [address] [place] [address] PCP - General Family Medicine 08/01/14 documented as of this encounter
--- OUTSIDE RECORDS SUMMARY | 2025-10-03 11:54 | XMS_ITS | Encounter Summary ---
Author Organization [facility] and [facility] Address [address] [place] [address] Care Team Providers Care Railroad Accountant Name Role Phone HaydenJace Primary Care Provider [phone] Encounter Details Date Type Department Care Team (Late st Contact Info) Description 06/06/2015 Scanned Document [facility] at [address] [place] [place] [address] Chino Cordova MD PhD [address] [place] [phone] Social History Tobacco Use Types Packs/Day Years [...] EST Appointment [facility] - [address] [place] [address] 6, Pft Procedure Room 10/09/2025 1:30 PM EST Appointment [facility] - [address] [address] Aparna Chang MD [address] [place] [phone] Hallway, Pft Walk 10/09/2025 2:00 PM EST Office Visit [facility] [address] [address] Aparna Chang MD [address] [place] [phone] 08/22/2026 11:00 AM EDT Follow Up [facility] at [address] [place] [address] [phone] Diana Coppola MD [address] [place] [phone] documented as of this encounter Visit Diagnoses Not on filedocumented in this encounter Care Teams Railroad Accountant Relationship Specialty Start Date End Date Jace Blake DO [address] [place] [address] PCP - General Family Medicine 08/01/14 documented as of this encounter
--- OUTSIDE RECORDS SUMMARY | 2025-10-03 11:54 | XMS_ITS | Encounter Summary ---
Author Organization [facility] and [facility] Address [address] [place] [address] Care Team Providers Care Cosmetics Presser Name Role Phone HaydenJace Primary Care Provider [phone] Encounter Details Date Type Department Care Team (Late st Contact Info) Description 05/05/2016 Scanned Document [facility] at [address] [place] [address] Chino Cordova MD PhD [address] [place] [phone] Social History Tobacco Use Types Packs/Day Years [...] EST Appointment [facility] - [address] [place] [address] 6, Pft Procedure Room 10/09/2025 1:30 PM EST Appointment [facility] - [address] [address] Aparna Chang MD [address] [place] [phone] Hallway, Pft Walk 10/09/2025 2:00 PM EST Office Visit [facility] [address] [address] Aparna Chang MD [address] [place] [phone] 08/22/2026 11:00 AM EDT Follow Up [facility] at [address] [place] [address] [phone] Diana Coppola MD [address] [place] [phone] documented as of this encounter Visit Diagnoses Not on filedocumented in this encounter Care Teams Cosmetics Presser Relationship Specialty Start Date End Date Jace Blake DO [address] [place] [address] PCP - General Family Medicine 08/01/14 documented as of this encounter
--- OUTSIDE RECORDS SUMMARY | 2025-10-03 11:54 | XMS_ITS | Encounter Summary ---
Author Organization [facility] and [facility] Address [address] [place] [address] Care Team Providers Care Leak Gang Supervisor Name Role Phone Jace Blake DO Primary Care Provider [phone] Encounter Details Date Type Department Care Team (Late st Contact Info) Description 04/24/2017 Scanned Document [facility] at [address] [place] [address] Narda Candelaria PA [address] [place] [phone] Social History Tobacco Use Types Packs/Day Years [...] EST Appointment [facility] - [address] [address] 6, Pft Procedure Room 10/09/2025 1:30 PM EST Appointment [facility] - [address] [address] Aparna Chang MD [address] [place] [phone] Hallway, Pft Walk 10/09/2025 2:00 PM EST Office Visit [facility] [address] [address] Aparna Chang MD [address] [place] [phone] 08/22/2026 11:00 AM EDT Follow Up [facility] at [address] [place] [phone] Diana Coppola MD [address] [place] [phone] documented as of this encounter Visit Diagnoses Not on filedocumented in this encounter Care Teams Leak Gang Supervisor Relationship Specialty Start Date End Date Jace Blake DO [address] [place] [address] PCP - General Family Medicine 08/01/14 documented as of this encounter
--- OUTSIDE RECORDS SUMMARY | 2025-10-03 11:55 | XMS_ITS | Encounter Summary ---
Author Organization [facility] and [facility] Address [address] [place] [address] Care Team Providers Care Yarn Comber Name Role Phone HaydenJace Primary Care Provider [phone] Encounter Details Date Type Department Care Team (Late st Contact Info) Description 08/01/2014 Scanned Document [facility] [address] [place] [address] Bernard Interiano MD [address] [place] [phone] Social History Tobacco Use Types Packs/Day [...] EST Appointment [facility] - [address] [address] 6, Pft Procedure Room 10/09/2025 1:30 PM EST Appointment [facility] - [address] [address] Aparna Chang MD [address] [place] [phone] Hallway, Pft Walk 10/09/2025 2:00 PM EST Office Visit [facility] [address] [address] Aparna Chang MD [address] [place] [phone] 08/22/2026 11:00 AM EDT Follow Up [facility] at [address] [place] [address] [phone] Diana Coppola MD [address] [place] [phone] documented as of this encounter Visit Diagnoses Not on filedocumented in this encounter Care Teams Yarn Comber Relationship Specialty Start Date End Date Jace Blake DO [address] [place] [address] PCP - General Family Medicine 08/01/14 documented as of this encounter
--- OUTSIDE RECORDS SUMMARY | 2025-10-03 11:55 | XMS_ITS | Encounter Summary ---
Author Organization [facility] and [facility] Address [address] [place] [address] Care Team Providers Care Rn Training Name Role Phone Blake, Gary Primary Care Provider [phone] Encounter Details Date Type Department Care Team (Late st Contact Info) Description 06/06/2020 Scanned Document [facility] Health Information Management [address] [place] [address] External, Provider Social History Tobacco Use Types [...] EST Appointment [facility] - [address] [place] [address] 6, Pft Procedure Room 10/09/2025 1:30 PM EST Appointment [facility] - [address] [address] Aparna Chang MD [address] [place] [phone] Hallway, Pft Walk 10/09/2025 2:00 PM EST Office Visit [facility] [address] [address] Aparna Chang MD [address] [place] [phone] 08/22/2026 11:00 AM EDT Follow Up Congestive Heart Failure Program at [address] [place] [address] [phone] Diana Coppola MD [address] [place] [phone] documented as of this encounter Procedures Procedure Name Priority Date/Time Associated Diagnosis Comments LAB SCAN Routine 06/06/2020 documented in this encounter Results * Lab Scan (06/06/2020) us Provider External LAB BLOOD ORDERABLES Final Res ult documented in this encounter Visit Diagnoses Not on filedocumented in this encounter Care Teams Rn Training Relationship Specialty Start Date End Date Jace Blake DO [address] [place] [address] PCP - General Family Medicine 08/01/14 documented as of this encounter
--- OUTSIDE RECORDS SUMMARY | 2025-10-03 11:55 | XMS_ITS | Encounter Summary ---
Author Organization [facility] and [facility] Address [address] [place] [address] Care Team Providers Care Qa Engineer Name Role Phone Jace Blake DO Primary Care Provider [phone] Encounter Details Date Type Department Care Team (Late st Contact Info) Description 06/19/2023 Scanned Document Congestive Heart Failure Program at [address] 2nd [place], [place] [address] Iram Navarro, WALDEMAR [address] [place] [phone] Social History Tobacco Use Types Packs/Day Years [...] EST Appointment [facility] - [address] [address], Pft Procedure Room 10/09/2025 1:30 PM EST Appointment [facility] - [address] [address] Aparna Chang MD [address] [place] [phone] Hallway, Pft Walk 10/09/2025 2:00 PM EST Office Visit [facility] [address] [address] Aparna Chang MD [address] [place] [phone] 08/22/2026 11:00 AM EDT Follow Up [facility] at [address] [place] [address] [phone] Diana Coppola MD [address] [place] [phone] documented as of this encounter Visit Diagnoses Not on filedocumented in this encounter Additional Health Concerns Assessment Noted Time PHQ-9 Depression Total Score: 0 06/17/20 23 11:05 AM EDT documented as of this encounter Care Teams Qa Engineer Relationship Specialty Start Date End Date Jace Blake DO [address] [place] [address] PCP - General Family Medicine 08/01/14 documented as of this encounter
--- OUTSIDE RECORDS SUMMARY | 2025-10-03 11:55 | XMS_ITS | Encounter Summary ---
Author Organization [facility] and [facility] Address [address] [place] [address] Care Team Providers Care Blueprint Processor Name Role Phone Jace Blake DO Primary Care Provider [phone] Encounter Details Date Type Department Care Team (Late st Contact Info) Description 07/16/2023 Transcribed Orders [facility] DRAW STATION [facility] [address] [place] [address] Aki Ross MD [address] [address] Social History Tobacco Use Types [...] EST Appointment [facility] - [address] [address], Pft Procedure Room 10/09/2025 1:30 PM EST Appointment [facility] - [address] [address] Aparna Chang MD [address] [place] [phone] Hallway, Pft Walk 10/09/2025 2:00 PM EST Office Visit [facility] [address] [phone] Aparna Chang MD [address] [place] [phone] 08/22/2026 11:00 AM EDT Follow Up Congestive Heart Failure Program at [address] [place] [address] [phone] Diana Coppola MD [address] [place] [phone] documented as of this encounter Visit Diagnoses Not on filedocumented in this encounter Additional Health Concerns Assessment Noted Time PHQ-9 Depression Total Score: 0 07/01/20 23 10:25 AM EDT documented as of this encounter Care Teams Blueprint Processor Relationship Specialty Start Date End Date Jace Blake DO [address] [place] [phone] PCP - General Family Medicine 08/01/14 documented as of this encounter
--- OUTSIDE RECORDS SUMMARY | 2025-10-03 11:55 | XMS_ITS | Encounter Summary ---
Author Organization [facility] and [facility] Address [address] [place] [address] Care Team Providers Care Terrazzo Worker Name Role Phone Jace Blake Primary Care Provider [phone] Encounter Details Date Type Department Care Team (Late st Contact Info) Description 04/30/2020 Scanned Document [facility] Health Information Management [address] [place] [address] External, Provider Social History Tobacco Use Types [...] EST Appointment [facility] - [address] [address], Pft Procedure Room 10/09/2025 1:30 PM EST Appointment [facility] - [address] [address] Aparna Chang MD [address] [place] [phone] Kiki, Pft Walk 10/09/2025 2:00 PM EST Office Visit [facility] [address] [place] [address] Aparna Chang MD [address] [place] [phone] 08/22/2026 11:00 AM EDT Follow Up Congestive Heart Failure Program at [address] [place] [address] [address] [place], [place] 614120 Diana Coppola MD [address] [place] [phone] documented as of this encounter Procedures Procedure Name Priority Date/Time Associated Diagnosis Comments LAB SCAN Routine 04/30/2020 documented in this encounter Results * Lab Scan (04/30/2020) us Provider External LAB BLOOD ORDERABLES Final Res ult documented in this encounter Visit Diagnoses Not on filedocumented in this encounter Care Teams Terrazzo Worker Relationship Specialty Start Date End Date Jace Blake DO [address] [place] [address] PCP - General Family Medicine 08/01/14 documented as of this encounter
--- OUTSIDE RECORDS SUMMARY | 2025-10-03 11:55 | XMS_ITS | Encounter Summary ---
Author Organization [facility] and [facility] Address [address] [place] [address] Care Team Providers Care Ski Instructor Name Role Phone Jace Blake Primary Care Provider Encounter Details Date Type Department Care Team (Late st Contact Info) Description 08/16/2020 Scanned Document [facility] Health Information Management [address] [place] [address] External, Provider Social History Tobacco Use Types [...] EST Appointment [facility] - [address] [address] 6, Pft Procedure Room 10/09/2025 1:30 PM EST Appointment [facility] - [address] [address] Aparna Chang MD [address] [place] [phone] Kiki Sudeep Walk 10/09/2025 2:00 PM EST Office Visit [facility] [address]rd [place], [place] [phone] Aparna Chang MD [address] [place] [phone] 08/22/2026 11:00 AM EDT Follow Up Congestive Heart Failure Program at [address] [place] [address] 2[address] [place] [address] Diana Coppola MD [address] [place] [phone] documented as of this encounter Procedures Procedure Name Priority Date/Time Associated Diagnosis Comments LAB SCAN Routine 08/16/2020 documented in this encounter Results * Lab Scan (08/16/2020) us Provider External LAB BLOOD ORDERABLES Final Res ult documented in this encounter Visit Diagnoses Not on filedocumented in this encounter Care Teams Ski Instructor Relationship Specialty Start Date End Date Jace Blake DO [address] [place] [address] PCP - General Family Medicine 08/01/14 documented as of this encounter
--- OUTSIDE RECORDS SUMMARY | 2025-10-03 11:55 | XMS_ITS | Encounter Summary ---
Author Organization [facility] Address [address] [place] [address] Care Team Providers Care Shake Loader Name Role Phone Jace Blake MD Primary Care Provider Provider, Rachid GARCIA Unavailable Unavaila Andres Topete MD Unavailable [phone] Aki Ross MD Unavailable [phone] Ursula Boo MD Unavailable [phone] Rocio Youssef PA-C Unavailable Emeterio Valencia MD Unavailable Diana Coppola MD Unavailable Pcp, No Primary Care Provider Unavailabl e Aparna Chang MD Unavailable + [phone] Encounter Details Date Type Department Care Team (Late st Contact Info) Description 04/01/2019 Scanned Document [facility] [place] [address] [place] [address] Provider, External, [address] [place] [address] Social History Tobacco Use Types Packs/Day Years [...] documented as of this encounter Care Teams Shake Loader Relationship Specialty Start Date End Date Jace Blake MD [address] [place] [address] PCP - General Psychiatry, General 05/04/17 07/16/25 Pcp, No PCP - General General Medicine 07/17/25 Provider, MD Rachid 04/27/17 Andres Lakhani MD [address] [place] [address] Mangle Roller Cardiology 07/08/19 Aki Ross MD [address] [place] [address] Primary Mangle Roller Cardiovascular Disease 07/08/19 Ursula Boo MD [address] [place] [address] Gastroenterology 06/07/20 Rocio Youssef PA-C [address] [address] Physician Aerial Photographer Gastroenterology 06/07/20 Emeterio Valencia MD [address] [address] Clinician Pulmonary Disease 06/20/20 08/22/25 Diana Coppola MD [address] [place] [phone] Internal Medicine 03/22/25 Aparna Chang MD [address] [place] [phone] Physician Pulmonary Disease 08/23/25 documented as of this encounter
--- OUTSIDE RECORDS SUMMARY | 2025-10-03 11:55 | XMS_ITS | Encounter Summary ---
Author Organization [facility] and [facility] Address [address] [place] [address] Care Team Providers Care Parking Lot Manager Name Role Phone Miguel Angel Blakey Primary Care Provider [phone] Encounter Details Date Type Department Care Team (Late st Contact Info) Description 01/01/2024 Scanned Document [facility], [address] [place] [address] Will Priest MD [address] [place] [phone] Social History Tobacco Use Types Packs/Day Years [...] EST Appointment [facility] - [address] [address] 6, Pft Procedure Room 10/09/2025 1:30 PM EST Appointment [facility] - [address] [address] Aparna Chang MD [address] [place] [phone] Hallway, Pft Walk 10/09/2025 2:00 PM EST Office Visit [facility] [address] [address] Aparna Chang MD [address] [place] [phone] 08/22/2026 11:00 AM EDT Follow Up Congestive Heart Failure Program at [address] [place] [phone] Diana Coppola MD [address] [place] [phone] documented as of this encounter Procedures [...] documented as of this encounter Care Teams Parking Lot Manager Relationship Specialty Start Date End Date Jace Blake DO [address] [place] [address] PCP - General Family Medicine 08/01/14 documented as of this encounter
--- OUTSIDE RECORDS SUMMARY | 2025-10-03 11:55 | XMS_ITS | Encounter Summary ---
Author Organization [facility] Address [address] [place] [address] Care Team Providers Care Voice Teacher Name Role Phone Jace Blake MD Primary Care Provider Provider, Rachid GARCIA Unavailable Unavaila Andres Topete MD Unavailable [phone] Aki Ross MD Unavailable [phone] Ursula Boo MD Unavailable Rocio Youssef PA-C Unavailable Emeterio Valencia MD Unavailable Diana Coppola MD Unavailable Pcp, No Primary Care Provider Unavailabl e Aparna Chang MD Unavailable + [phone] Encounter Details Date Type Department Care Team (Late st Contact Info) Description 04/01/2019 Scanned Document [facility] [place] [address] [place] [address] Provider, External, [address] [place] [address] Social History Tobacco Use Types Packs/Day Years [...] documented as of this encounter Care Teams Voice Teacher Relationship Specialty Start Date End Date Jace Blake MD [address] [place] [address] PCP - General Psychiatry, General 05/04/17 07/16/25 Pcp, No PCP - General General Medicine 07/17/25 Provider, MD Rachid 04/27/17 Andres Lakhani MD [address] [place] [address] Medical Practitioners Cardiology 07/08/19 Aki Ross MD [address] [place] [address] Primary Medical Practitioners Cardiovascular Disease 07/08/19 Ursula Boo MD [address] [place] [address] Gastroenterology 06/07/20 Rocio Youssef PA-C [address] [address] Physician Bearing Press Machine Operator Gastroenterology 06/07/20 Emeterio Valencia MD [address] [address] Clinician Pulmonary Disease 06/20/20 08/22/25 Diana Coppola MD [address] [place] [phone] Internal Medicine 03/22/25 Aparna Chang MD [address] [place] [phone] Physician Pulmonary Disease 08/23/25 documented as of this encounter
--- OUTSIDE RECORDS SUMMARY | 2025-10-03 11:55 | XMS_ITS | Encounter Summary ---
Author Organization [facility] and [facility] Address [address] [place] [address] Care Team Providers Care Skin Grader Name Role Phone HaydneJace Primary Care Provider [phone] Encounter Details Date Type Department Care Team (Late st Contact Info) Description 08/04/2014 Scanned Document [facility] at [address] [place] [address] Chino Cordova MD PhD [address] [place] [phone] Social History Tobacco Use Types Packs/Day Years [...] EST Appointment [facility] - [address] 3[address] [place] [address] 6, Pft Procedure Room 10/09/2025 1:30 PM EST Appointment [facility] - [address] [address] Aparna Chang MD [address] [place] [phone] Hallway, Pft Walk 10/09/2025 2:00 PM EST Office Visit [facility] [address] [address] Aparna Chang MD [address] [place] [phone] 08/22/2026 11:00 AM EDT Follow Up [facility] Congest[facility] Failure [facility] at [address] [place] [phone] Diana Coppola MD [address] [place] [phone] documented as of this encounter Visit Diagnoses Not on filedocumented in this encounter Care Teams Skin Grader Relationship Specialty Start Date End Date Jace Blake DO [address] [place] [address] PCP - General Family Medicine 08/01/14 documented as of this encounter
--- OUTSIDE RECORDS SUMMARY | 2025-10-03 11:55 | XMS_ITS | Encounter Summary ---
Author Organization [facility] and [facility] Address [address] [place] [address] Care Team Providers Care Community Affairs Director Name Role Phone Jace Blake DO Primary Care Provider [phone] Encounter Details Date Type Department Care Team (Late st Contact Info) Description 06/15/2023 Abstract Congestive Heart Failure Program at [address] [place], [place] [address] Diana Coppola MD [address] [place] [phone] Social History Tobacco Use Types Packs/Day [...] EST Appointment [facility] - [address] [address], Pft Procedure Room 10/09/2025 1:30 PM EST Appointment [facility] - [address] [address] Aparna Chang MD [address] [place] [phone] Hallway, Pft Walk 10/09/2025 2:00 PM EST Office Visit [facility] [address] [address] Aparna Chang MD [address] [place] [phone] 08/22/2026 11:00 AM EDT Follow Up [facility] at [address] [place] [phone] Diana oCppola MD [address] [place] [phone] documented as of this encounter Visit Diagnoses Not on filedocumented in this encounter Additional Health Concerns Assessment Noted Time PHQ-9 Depression Total Score: 0 07/10/20 21 10:52 AM EDT documented as of this encounter Care Teams Community Affairs Director Relationship Specialty Start Date End Date Jace Blake DO [address] [place] [phone] PCP - General Family Medicine 08/01/14 documented as of this encounter
--- OUTSIDE RECORDS SUMMARY | 2025-10-03 11:55 | XMS_ITS | Encounter Summary ---
Author Organization [facility] and [facility] Address [address] [place] [address] Care Team Providers Care Senior Developer Name Role Phone Blake, Gary Primary Care Provider [phone] Encounter Details Date Type Department Care Team (Late st Contact Info) Description 08/07/2020 Scanned Document [facility] Health Information Management [address] [place] [address] External, Provider Social History Tobacco Use Types [...] EST Appointment [facility] - [address] 3[address] [place] [address] 6, Pft Procedure Room 10/09/2025 1:30 PM EST Appointment P[facility] - [address] [address] Aparna Chang MD [address] [place] [phone] Hallway, Pft Walk 10/09/2025 2:00 PM EST Office Visit [facility] [address] [address] Aparna Chang MD [address] [place] [phone] 08/22/2026 11:00 AM EDT Follow Up Congestive Heart Failure Program at [address] [place] [phone] Diana Coppola MD [address] [place] [phone] documented as of this encounter Procedures Procedure Name Priority Date/Time Associated Diagnosis Comments LAB SCAN Routine 08/07/2020 documented in this encounter Results * Lab Scan (08/07/2020) us Provider External LAB BLOOD ORDERABLES Final Res ult documented in this encounter Visit Diagnoses Not on filedocumented in this encounter Care Teams Senior Developer Relationship Specialty Start Date End Date Jace Blake DO [address] [place] [address] PCP - General Family Medicine 08/01/14 documented as of this encounter
--- OUTSIDE RECORDS SUMMARY | 2025-10-03 11:55 | XMS_ITS | Encounter Summary ---
Author Organization [facility] and [facility] Address [address] [place] [address] Care Team Providers Care Nnp Name Role Phone Blake, Gary Primary Care Provider [phone] Encounter Details Date Type Department Care Team (Late st Contact Info) Description 05/18/2020 Scanned Document [facility] Health Information Management [address] [place] [address] External, Provider Social History Tobacco Use Types [...] EST Appointment [facility] - [address] 3[address] [place] [address] 6, Pft Procedure Room 10/09/2025 1:30 PM EST Appointment [facility] - [address] [address] Aparna Chang MD [address] [place] [phone] Hallway, Pft Walk 10/09/2025 2:00 PM EST Office Visit [facility] [address] [address] Aparna Chang MD [address] [place] [phone] 08/22/2026 11:00 AM EDT Follow Up Congestive Heart Failure Program at [address] [place] [phone] Diana Coppola MD [address] [place] [phone] documented as of this encounter Procedures Procedure Name Priority Date/Time Associated Diagnosis Comments LAB SCAN Routine 05/18/2020 documented in this encounter Results * Lab Scan (05/18/2020) us Provider External LAB BLOOD ORDERABLES Final Res ult documented in this encounter Visit Diagnoses Not on filedocumented in this encounter Care Teams Nnp Relationship Specialty Start Date End Date Jace Blake DO [address] [place] [address] PCP - General Family Medicine 08/01/14 documented as of this encounter
--- OUTSIDE RECORDS SUMMARY | 2025-10-03 11:55 | XMS_ITS | Encounter Summary ---
Author Organization [facility] Address [address] [place] [address] Care Team Providers Care Forestry Farm Laborer Name Role Phone Jace Blake MD Primary Care Provider Provider, Rachid GARCIA Unavailable Unavaila Andres Topete MD Unavailable [phone] Aki Ross MD Unavailable [phone] Ursula Boo MD Unavailable [phone] Rocio Youssef PA-C Unavailable Emeterio Valencia MD Unavailable Diana Coppola MD Unavailable Pcp, No Primary Care Provider Unavailabl e Aparna Chang MD Unavailable + [phone] Encounter Details Date Type Department Care Team (Late st Contact Info) Description 04/01/2019 Scanned Document [facility] [place] [address] [place] [address] Provider, External, [address] [place] [address] Social History Tobacco Use Types Packs/Day Years [...] documented as of this encounter Care Teams Forestry Farm Laborer Relationship Specialty Start Date End Date Jace Blake MD [address] [place] [address] PCP - General Psychiatry, General 05/04/17 07/16/25 Pcp, No PCP - General General Medicine 07/17/25 Provider, MD Rachid 04/27/17 Andres Lakhani MD [address] [place] [address] Floor Installer Cardiology 07/08/19 Aki Ross MD [address] [place] [address] Primary Floor Installer Cardiovascular Disease 07/08/19 Ursula Boo MD [address] [place] [address] Gastroenterology 06/07/20 Rocio Youssef PA-C [address] [address] Physician Fire Chief'S Aide Gastroenterology 06/07/20 Emeterio Valencia MD [address] [address] Clinician Pulmonary Disease 06/20/20 08/22/25 Diana Coppola MD [address] [place] [phone] Internal Medicine 03/22/25 Aparna Chang MD [address] [place] [phone] Physician Pulmonary Disease 08/23/25 documented as of this encounter
--- OUTSIDE RECORDS SUMMARY | 2025-10-03 11:55 | XMS_ITS | Encounter Summary ---
Author Organization [facility] and [facility] Address [address] [place] [address] Care Team Providers Care Music Rehabilitation Therapist Name Role Phone Jace Blake DO Primary Care Provider Encounter Details Date Type Department Care Team (Late st Contact Info) Description 09/14/2023 Scanned Document [facility] at [address] [facility] [address] [place], [place] [phone] Silvestre Maldonado MD [address] [place] [phone] Social History Tobacco Use Types Packs/Day Years [...] EST Appointment [facility] - [address] [address], Pft Procedure Room 10/09/2025 1:30 PM EST Appointment [facility] - [address] [address] Aparna Chang MD [address] [place] [phone] Hallway, Pft Walk 10/09/2025 2:00 PM EST Office Visit [facility] [address] [address] Aparna Chang MD [address] [place] [phone] 08/22/2026 11:00 AM EDT Follow Up [facility] Congest[facility] Failure [facility] at [address] [place] [address] Diana Coppola MD [address] [place] [phone] documented as of this encounter Visit Diagnoses Not on filedocumented in this encounter Additional Health Concerns Assessment Noted Time PHQ-9 Depression Total Score: 0 07/01/20 23 10:25 AM EDT documented as of this encounter Care Teams Music Rehabilitation Therapist Relationship Specialty Start Date End Date Jace Blake DO [address] [place] [phone] PCP - General Family Medicine 08/01/14 documented as of this encounter
--- OUTSIDE RECORDS SUMMARY | 2025-10-03 11:55 | XMS_ITS | Encounter Summary ---
Author Organization [facility] and [facility] Address [address] [place] [address] Care Team Providers Care Antique Furniture Repairer Name Role Phone Hayden Jace Primary Care Provider [phone] Encounter Details Date Type Department Care Team (Latest Contact Info) Description 07/14/2023 Transcribed Orders [facility] [address] [place] [address] Aki Ross MD [address] [phone] Cardiac pacemaker in situ (Primary [...] EST Appointment P[facility] - [address] [address], Pft Procedure Room 10/09/2025 1:30 PM EST Appointment P[facility] - [address] [address] Aparna Chang MD [address] [place] [phone] Hallway, Pft Walk 10/09/2025 2:00 PM EST Office [facility] [address] [address] Aparna Chang MD [address] [place] [phone] 08/22/2026 11:00 AM EDT Follow Up [facility] at [address] [place] [address] Diana Coppola MD [address] [place] [phone] documented as of this encounter Results * Partial thromboplastin time (BH GH LMW Q YH) (07/16/2023 1:03 PM EDT) PTT 29.1 21.0 - 32.0 seconds 07/16/2023 3:13 PM EDT [facility] Comment: RECOMMENDED THERAPEUTIC RANGE: 40-80 SECONDS Blood Venipuncture / Unknown 07/16/2023 1:03 PM EDT 07/16/2023 1:03 PM EDT us Aik Ross MD LAB BLOOD ORDERABLES Final Res ult [address] [phone] * Protime and INR (07/16/2023 1:03 PM EDT) Prothrombin Time 11.0 9.0 - 11.1 seconds 07/16/2023 3:13 PM EDT [facility] INR 1.14 0.90 - 1.16 07/16/2023 3:13 PM EDT [facility] Comment: RECOMMENDED INR THERAPEUTIC RANGES: STANDARD INTENSITY......2.0-3.0 HIGH INTENSITY..........2.5-3.5 Blood Venipuncture / Unknown 07/16/2023 1:03 PM EDT 07/16/2023 1:03 PM EDT us Aki Ross MD LAB BLOOD ORDERABLES Final Res ult [address] [phone] documented in this encounter Visit Diagnoses Diagnosis Cardiac pacemaker in situ- Primary Preop examination Preoperative examination, unspecified documented in this encounter Additional Health Concerns Assessment Noted Time PHQ-9 Depression Total Score: 0 07/01/20 23 10:25 AM EDT documented as of this encounter Care Teams Antique Furniture Repairer Relationship Specialty Start Date End Date Jace Blake DO [address] [place] [address] PCP - General Family Medicine 08/01/14 documented as of this encounter
--- OUTSIDE RECORDS SUMMARY | 2025-10-03 11:55 | XMS_ITS | Encounter Summary ---
Author Organization [facility] and [facility] Address [address] [place] [address] Care Team Providers Care Bunch Breaker Machine Operator Name Role Phone Jace Blake DO Primary Care Provider [phone] Reason for Visit * Reason Comments Medication Refill Encounter Details Date Type Department Care Team (Late st Contact Info) Description 09/27/2023 Refill [facility] at [address] [place] [address] Pao Steele APRN [address] [phone] Medication Refill Social History Tobacco Use Types [...] EST Appointment [facility] - [address] [address], Pft Procedure Room 10/09/2025 1:30 PM EST Appointment P[facility] - [address] [address] Aparna Chang MD [address] [place] [phone] Hallway, Pft Walk 10/09/2025 2:00 PM EST Office Visit [facility] [address] [address] Aparna Chang MD [address] [place] [phone] 08/22/2026 11:00 AM EDT Follow Up [facility] at [address] [place] [phone] Diana Coppola MD [address] [place] [phone] documented as of this encounter Visit Diagnoses Diagnosis Chronic systolic heart failure (HC Code) (HC CODE) Chronic systolic heart failure documented in this encounter Additional Health Concerns Assessment Noted Time PHQ-9 Depression Total Score: 0 07/01/20 23 10:25 AM EDT documented as of this encounter Care Teams Bunch Breaker Machine Operator Relationship Specialty Start Date End Date Jace Blake DO [address] [place] [address] PCP - General Family Medicine 08/01/14 documented as of this encounter
--- OUTSIDE RECORDS SUMMARY | 2025-10-03 11:55 | XMS_ITS | Encounter Summary ---
Author Organization [facility] and [facility] Address [address] [place] [address] Care Team Providers Care Autocad Detailer Name Role Phone HaydenJace Primary Care Provider [phone] Encounter Details Date Type Department Care Team (Late st Contact Info) Description 10/17/2024 Scanned Document INTERFACE DEFAULT [address] [place] [address] System, Provider Not In Social History Tobacco [...] EST Appointment P[facility] - [address] [phone], Pft Procedure Room 10/09/2025 1:30 PM EST Appointment P[facility] - [address] [address] Aparna Chang MD [address] [place] [phone] Hallway, Pft Walk 10/09/2025 2:00 PM EST Office Visit [facility] [address] [address] Aparna Chang MD [address] [place] [phone] 08/22/2026 11:00 AM EDT Follow Up Congestive Heart Failure Program at [address] [place] [address] Diana Coppola MD [address] [place] [phone] documented as of this encounter Procedures Procedure [...] documented as of this encounter Care Teams Autocad Detailer Relationship Specialty Start Date End Date Jace Blake DO [address] [place] [address] PCP - General Family Medicine 08/01/14 documented as of this encounter
== END 2025-10-03 10:54 | disposition home or self-care (01) ==
LOC: HO.HKA 10:19
PROVIDERS: PCP Family Medicine; Visit Provider Internal Medicine Hypertension Specialist
DX: N18.9 Chronic kidney disease, unspecified (principal); E87.6 Hypokalemia
CPT/HCPCS: 99214

== ENCOUNTER → 2025-10-03 10:19 | Outpatient (BNVA) | payer MEDICARE, SELFPAY | PROVIDERS: PCP Family Medicine; Visit Provider Internal Medicine Hypertension Specialist | DX: I10 Essential (primary) hypertension (principal); N18.9 Chronic kidney disease, unspecified; I50.9 Heart failure, unspecified | CPT/HCPCS: 99212 ==